=== PATIENT | female | born 1940 | race Caucasian/White ===

== ENCOUNTER 2017-03-13 22:27 | Inpatient (IN) | payer MEDICARE, OTHER ==
[~2017-03-13] VITALS: Ht 157.5 cm; Wt 67.8 kg
[2017-03-13] MEDS: ADVAIR DISKUS 500/50 INH PWD INH SCH (02:13)
[~2017-03-13 22:27] MED LIST: ADV500INH INH; ALBU17IN INH; ALBU83IN INH; AMLO10TA2 PO; AVEL1TAB PO; DOCU10CA PO; DOXY100C PO; Docusate Sod/Senna PO; HYDR12CA PO; IPRAINH INH; LEVO75TA4 PO; LOSA100T36 PO; METF1000 PO; METF500T PO; MOM30SS PO; NICO21PAT TD; NORV5TAB PO; PERC5TAB6 PO; PRED10PA PO; PROT1TAB2 PO; ROBISYP PO; SENN8.6C PO; SIMV80TA PO; SPIR1CAP INH; TYLE325T5 PO; VITA100066 PO; ZETI10TA2 PO; [UNRECOGNIZED DRUG - CODE] PO
[2017-03-13] MEDS ORDERED: ALBUTEROL SULFATE 2.5 MG/0.5 ML INH NEB SOLN INH ONE (22:45)
[2017-03-13] MEDS ORDERED: IPRATROPIUM 0.5MG/ALBUTEROL 2.5MG INH SOL UD 3ML (DUONEB)(J7620) NEB ONE (22:45)
[2017-03-13] MEDS ORDERED: THEO1CAP5 PO (22:46)
[2017-03-13] MEDS ORDERED: GLIP-162 PO (22:46)
[2017-03-13 22:57] LABS: BASO # 0.1 K/mm3 (0.0-0.2); BASO % 0.8 % (0.0-1.0); EOS # 0.3 K/mm3 (0.0-0.50); EOS % 2.1 % (0.0-3.0); LARGE UNSTAINED CELL # 0.3 K/mm3 (0.0-0.4); LARGE UNSTAINED CELL % 1.9 % (0.0-4.0); LYMPH # 3.3 K/mm3 (1.5-4.5); LYMPH % 22.6 % (24.0-44.0); MEAN CORPUSCULAR HEMOGLOBIN 25.8 pg (27.0-33.0); MEAN CORPUSCULAR HGB CONC 32.5 g/dl (32.0-36.5); MEAN CORPUSCULAR VOLUME 79.4 fl (80.0-96.0); MONO # 0.9 K/mm3 (0.0-0.8); NEUTROPHILS # 9.7 K/mm3 (1.8-7.7); NEUTROPHILS % 66.7 % (36.0-66.0); PLATELET COUNT, AUTOMATED 400 k/mm3 (150-450); RED CELL DISTRIBUTION WIDTH 13.5 % (11.5-14.5); WHITE BLOOD COUNT 14.5 K/mm3 (4.0-10.0)
[2017-03-13 23:01] LABS: INR 0.92
[2017-03-13 23:08] LABS: ABG BASE EXCESS 1.6 (-2.0-2.0); ABG HCO3 25.9 MEQ/L (22.0-26.0); ABG PARTIAL PRESSURE CO2 39.5 mmHg (35.0-45.0); ABG PARTIAL PRESSURE O2 60.9 mmHg (75.0-100.0); ABG STANDARD HCO3 25.8 MEQ/L (22.0-26.0); ABG TOTAL CO2 27.1 MEQ/L (23.0-31.0); ABG pH (ARTERIAL) 7.434 UNITS (7.350-7.450)
[2017-03-13 23:23] LABS: ANION GAP 6 MEQ/L (8-16); BLOOD UREA NITROGEN 12 MG/DL (7-18); CALCIUM LEVEL 9.5 MG/DL (8.8-10.2); CARBON DIOXIDE LEVEL 29 MEQ/L (21-32); CHLORIDE LEVEL 99 MEQ/L (98-107); CREATININE FOR GFR 0.75 MG/DL (0.55-1.02); GLOMERULAR FILTRATION RATE > 60.0 (>39); GLUCOSE, FASTING 122 MG/DL (83-110); POTASSIUM SERUM 4.2 MEQ/L (3.5-5.1); SODIUM LEVEL 134 MEQ/L (136-145)
[2017-03-13 23:30] LABS: ALBUMIN 3.6 GM/DL (3.2-5.2); ALBUMIN/GLOBULIN RATIO 0.92 (1.00-1.93); ALKALINE PHOSPHATASE 58 U/L (45-117); ALT/SGPT 15 U/L (12-78); AST/SGOT 10 U/L (15-37); BILIRUBIN,DIRECT < 0.1 MG/DL (0.0-0.2); BILIRUBIN,TOTAL 0.3 MG/DL (0.2-1.0); THYROXINE (T4) 13.3 UG/DL (4.5-12.0); TOTAL PROTEIN 7.5 GM/DL (6.4-8.2)
[2017-03-14] MEDS ORDERED: GLUCAGON FOR INJ 1 MG VIAL (J1610) SC PRN (01:00)
[2017-03-14] MEDS ORDERED: DEXTROSE 50% 50 ML SYRINGE IV PRN (01:00)
[2017-03-14] MEDS ORDERED: ONDANSETRON 4MG/2ML VIAL (J2405) IV PRN (01:00)
[2017-03-14] MEDS ORDERED: GLUCOSE 4 GM CHEW TABLET PO PRN (01:00)
[2017-03-14] MEDS ORDERED: MIRALAX *UNIT DOSE* 17GM PACKET PO PRN (01:15)
[2017-03-14] MEDS ORDERED: NICOTINE 14 MG/24 HR TRANSDERMAL TD PRN (01:15)
[2017-03-14] MEDS ORDERED: MIRALAX *UNIT DOSE* 17GM PACKET PO ONE (01:30)
[2017-03-14] MEDS ORDERED: HYDR12.55 PO (01:43)
[2017-03-14] MEDS ORDERED: METF500T PO (01:43)
[2017-03-14 01:56] VITALS: BP 129/58
[2017-03-14] MEDS: IPRATROPIUM 0.5MG/ALBUTEROL 2.5MG INH SOL UD 3ML (DUONEB)(J7620) NEB SCH ×4 (02:00→19:55)
[2017-03-14] MEDS: SENOKOT S TAB PO SCH ×3 (02:15→21:00)
[2017-03-14] MEDS: SENNA 8.6 MG TAB (SENOKOT) PO SCH ×3 (02:15→21:00)
[2017-03-14] MEDS: methylPREDNISolone INJ 125 MG/2 ML VIAL (J2930) IV SCH ×3 (02:17→17:32)
[2017-03-14] MEDS: ACETAMINOPHEN TAB 650MG DOSE (2X325MG) PO PRN ×2 (02:18→14:21)
--- NOTE | 2017-03-14 03:42 | HPE ---
DATE OF ADMISSION: 03/14/2017 PRIMARY CARE PROVIDER: Dr. Bud Gonzalez at [facility]. CHIEF COMPLAINT: Shortness of breath. HISTORY OF PRESENT ILLNESS: Ms. Cai is a 76-year-old female with past medical history of chronic obstructive pulmonary disease (COPD), oxygen dependent at night, who [facility] with complaint of shortness of breath worsened in the last 3-4 days. At baseline, she has shortness of breath and uses 2 liters nasal cannula; however, noticed that her shortness of breath worsened 3 days ago while cooking her meal. This is a significant change compared to her baseline. Endorses a yellow productive cough , subjective fevers, chills. Denies chest pain, palpitations, paroxysmal nocturnal dyspnea, pillow orthopnea. Patient continues to sleep on the same angle of the bed at night, mostly lies on her left side. Has not increased the amount of oxygen that she uses in the last few days. However, in the last few months because of the weather change, she has been needing to use her nebulizer treatment more frequently, though no relief of symptom. Because of persistent symptom, she decided to come in today for further evaluation. Denies sick contact at home. She was prescribed azithromycin a few days ago by her primary care provider (PCP), but no relief of symptom. Reported improvement after she was given nebulizer treatment in the ED. PAST MEDICAL HISTORY: 1. COPD, emphysema with 2 liters nasal cannula. 2. Chronic hypoxic respiratory failure. 3. Type 2 diabetes. 4. Hypertension. 5. Hyperlipidemia. 6. Internal hemorrhoids. 7. Hypothyroidism. 8. Right apical solitary nodule, spiculated, being followed by wood cutter. 9. Left upper lobe ground opacity. 10. Umbilical hernia, reportedly was seen by surgeon and was told that no one would touch it because of her underlying pulmonary disease. 11. Diverticulosis. 12. Hiatal hernia. PAST SURGICAL HISTORY: 1. Right thumb trigger finger release. 2. Tonsillectomy. 3. Thyroidectomy. 4. Bilateral cataract surgery. 5. Esophagogastroduodenoscopy (EGD) 2013 shows small hiatal hernia. 6. Colonoscopy 2013 shows non-bleeding internal hemorrhoids, diverticulosis. Pathology positive for adenomatous polyp. HOME MEDICATIONS: - Spiriva one dose inhaled daily - theophylline 400 mg by mouth daily - Zocor 80 mg nightly - Advair one puff inhaled twice a day - metformin 500 mg three times a day - losartan 100 mg by mouth daily - Synthroid 75 mcg by mouth daily - hydrochlorothiazide 12.5 mg by mouth daily - glipizide 5 mg by mouth daily - Zebeta 10 mg by mouth daily - vitamin D 1000 mg by mouth daily - albuterol two puffs every 4 hours as needed ALLERGIES: Denies allergy to penicillin, but reports allergic reaction to SULFA , KEFLEX, AUGMENTIN, SOMA, and CODEINE and reported projectile vomit with these medications. FAMILY HISTORY: Father from bladder cancer at 75. Mother at 55 due to heart attack. There is a history of various cancers in multiple of her siblings. Unknown what type. SOCIAL HISTORY: Patient is a current smoker, has been smoking for 54 years. Used to smoke two packs a day, now down to a pack and a half. No alcohol. No drug use. She has traveled to [facility], [place]. 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 No exposure to tuberculosis, asbestos. Has three cats at home. REVIEW OF SYSTEMS: CONSTITUTIONAL: Positive for subjective fevers, chills. Denies weight loss, rigors, or night sweats. HEENT: Denies headaches, lightheadedness, dizziness, blurry vision, difficulty with speech and swallow. CARDIOVASCULAR: As above. PULMONARY: As above. GASTROINTESTINAL: Has a ventral hernia and was told that no surgeon will operate due to her severe underlying lung problem. Reports abdominal pain secondary to her constipation. Denies hematochezia, melena, or hematemesis, nausea, vomiting, diarrhea. GENITOURINARY: No dysuria, frequency or hematuria. MUSCULOSKELETAL: No bone, muscle, joint pain. NEUROLOGICAL: No paralysis, paresthesia, headaches. ENDOCRINE: Positive for diabetes and thyroid disease. LYMPHATICS: No lumps, bumps, or swelling anywhere in neck, axilla, or groin. HEMATOLOGY: No abnormal bleeding or bruising. PSYCHIATRIC: Denies anxiety or depression. PHYSICAL EXAMINATION: VITAL SIGNS: Blood pressure 163/70, heart rate 96, temperature 98.6, respiration rate 22, pulse oximetry 94% on 2 liters nasal cannula. GENERAL: Patient is sitting in bed, comfortable, no acute respiratory distress. She is able to answer questions in full complete sentences. at bedside. Appears stated age. HEENT: Normocephalic, atraumatic. Moist oral mucosa. Edentulous. No thrush or lesions appreciated. EYES: Extraocular movement intact. Pupils equal and reactive to light. NECK: Supple. Trachea midline. No jugular venous distention (JVD). CHEST: Symmetric chest rise. No accessory muscle use. Breath sounds were tight throughout all lung cervantes with expiratory wheezing. No rales or rhonchi appreciated. HEART: Mildly tachycardic, but regular sounding. Did not appreciate any murmurs, rubs or gallops. ABDOMEN: Soft, but diffusely tender to palpation. The patient reports cramping from when she is constipated. Does have umbilical hernia that is reducible. EXTREMITIES: No pedal edema. Pedal pulses present bilaterally. NEUROLOGIC: Cranial nerves II-XII grossly intact. No focal deficits appreciated. SKIN: No obvious rash or lesions. PSYCHIATRIC: Pleasant, cooperative. LABORATORY DATA: WBC 14.5, hemoglobin 14.3, hematocrit 44.1, platelets 400. Sodium 134, potassium 4.2, chloride 99, carbon dioxide 29, BUN 12, creatinine 0.75, glucose 122. Lactic acid 1.5, calcium 9.5. AST 10, the rest of the liver profile normal. First set of cardiac enzymes negative. CRP 0.66. BNP 16.6. TSH 3. Coagulation panel normal. ABG pH 7.43, pCO2 39.9, oxygen 60.9. Chest x-ray is normal heart size, cardiac border and costophrenic angles sharp. No acute infiltrate or effusion appreciated. IMPRESSION AND PLAN: Ms. Cai is a 76-year-old female with past medical history of chronic obstructive pulmonary disease (COPD), oxygen dependent, chronic hypoxic respiratory failure, who presented with worsening shortness of breath. 1. Shortness of breath. Based on her history, suspect this is likely secondary to COPD exacerbation. The patient reported relief of symptom after given albuterol treatment in the emergency department (ED). Patient will be admitted for close monitoring. Will trend cardiac markers. Check EKG. Start Solu- Medrol intravenously (IV) every 8 hours with nebulizer treatment and Levaquin. Continue oxygen saturation with a goal of 88-92 due to her history of COPD. 2. Leukocytosis. Likely secondary to stress reaction versus infection. Repeat labs in the morning; however, suspect that this will likely increase due to on steroids. She is on Levaquin as mentioned. Will check sputum culture and respiratory panel. 3. Abdominal pain. Etiology unclear, though the patient herself reports feeling constipated. Have checked a KUB. She does have a reducible ventral hernia on physical exam as well and per patient she was evaluated by surgeon in the past and was deemed not appropriate for surgery by surgeons due to her advanced pulmonary disease. Her abdominal pain was not elicited from her ventral hernia tonight. We have added a stool softener. 4. Diabetes. Will hold home hypoglycemic agents and start insulin sliding scale. 5. Hypertension. Continue home dose Cozaar and hydrochlorothiazide. 6. Hyperlipidemia. Continue Lipitor 80 nightly. 7. Hypothyroidism. Continue levothyroxine. 8. Pulmonary nodule. Patient reportedly follows with a wood cutter for this. 9. Tobacco abuse. Unfortunately, despite her advanced pulmonary disease, she continues to smoke. We have added as needed nicotine patch. 10. Deep venous thrombosis (DVT) prophylaxis. Sequential compression devices (SCDs), thromboembolism deterrent stockings (TEDS) and heparin. DISPOSITION: Due to the patient's condition, we expect her stay to be greater than two midnights. My preceptor for this patient encounter was Dr. Pascale Beltran. The preceptor was physically present in the building during the encounter and was fully available as needed. All aspects of the patient interview, examination, medical decision making process, and medical care plan development were reviewed and approved by the preceptor. The preceptor is aware and concurs with the plan as stated in the body of this note and will attest to such by his/her co-signature. cc: Dr. Bud Gonzalez I have both independently examined this patient as well as reviewed the H&P. I have discussed in detail with the resident the findings and plan of treatment as documented in the residents note. I will continue to follow the patient and offer further guidance to the patients care as necessary during this hospital stay. Pascale OWENS
[2017-03-14] MEDS: LevoFLOXacin 500 MG TABLET PO SCH (05:33)
[2017-03-14] MEDS: HEPARIN SOD (PORCINE) 5000 UNITS/ML VIAL SC SCH ×3 (05:33→21:07)
[2017-03-14 05:50] VITALS: BP 143/65
[2017-03-14] MEDS ORDERED: LEVOTHYROXINE 0.075 MG TAB (75 MCG) PO SCH (06:00)
[2017-03-14] MEDS: HumaLOG INSULIN (NovoLOG) PER UNIT SC SCH ×4 (07:59→20:47)
[2017-03-14] MEDS: EZETIMIBE 10 MG TAB (ZETIA) PO SCH (08:00)
[2017-03-14] MEDS: VITAMIN D 1,000 INTERNATIONAL UNITS TABLET PO SCH (08:00)
[2017-03-14] MEDS: hydroCHLOROthiazide 12.5 MG CAPSULE PO SCH (08:00)
[2017-03-14] MEDS: THEOPHYLLINE (THEO-24) 100MG SR **CAPSULE PO SCH (08:00)
[2017-03-14] MEDS: LOSARTAN 50 MG TAB PO SCH (08:00)
[2017-03-14] MEDS: TIOTROPIUM INHALER/CAPSULE (SPIRIVA) INH SCH (08:13)
[2017-03-14] MEDS: ADVAIR DISKUS 500/50 INH PWD INH SCH ×2 (08:14→19:54)
--- NOTE | 2017-03-14 09:17 | REP ---
REASON: Cough and dyspnea. COMPARISON: 08/05/2016 The technique utilized in obtaining the radiograph has magnified the cardiac silhouette and accentuated the interstitial markings. There has been no significant change. There is fibrotic change throughout without evidence of a patchy opacity or pleural effusion. There is no change in the osseous structures. IMPRESSION: No change. Signed by Foster Jean DO 03/14/2017 09:26 A
--- NOTE | 2017-03-14 09:24 | ECGEPIP ---
Stationary ECG Study [facility] - ED Test Date: 2017-03-13 Pat Name: HERB MAYA Department: Room: [place] [address] Gender: F Under Trimmer: MalcolmB: 1940 Requested By: Sean Vasquez Order Number: [id number] Reading MD: Sheeba Dickens Measurements Intervals [place] Rate: 105 P: 86 WV: 142 QRS: 69 QRSD: 93 T: 101 QT: 321 QTc: 425 Interpretive Statements SINUS TACHYCARDIA NONSPECIFIC ST & T-WAVE ABNORMALITY ABNORMAL RHYTHM ECG SIMILAR 07/31/16 Electronically Signed On 03-14-2017 9:24:26 EDT by Sheeba Dickens
--- NOTE | 2017-03-14 09:29 | REP ---
ABDOMINAL PAIN: COMPARISON: None. FINDINGS: KUB shows the intestinal gas pattern to be nonspecific. The organ silhouettes insofar as delineated are unremarkable. There is no evidence of free intraperitoneal air. IMPRESSION: Nonspecific. Signed by Foster Jean DO 03/14/2017 09:40 A
[2017-03-14] MEDS: IPRATROPIUM 0.5MG/ALBUTEROL 2.5MG INH SOL UD 3ML (DUONEB)(J7620) NEB PRN ×2 (10:12→23:59)
--- NOTE | 2017-03-14 13:57 | IPN ---
DATE OF SERVICE: 03/14/2017 SUBJECTIVE: The patient is seen and examined in the room today. The patient stated the patient's breathing is stable since admission. The patient has been having a similar infection where her had before. The patient still complaining about several days of constipation. No overnight events were reported. OBJECTIVE: Vital signs: Temperature is 97.4, pulse of 107, respiration 18, blood pressure is 143/65, pulse oximetry is 94% with 2 liters nasal cannula. General: Mild distress secondary to tachypnea. The patient is alert and oriented times three. Some difficulty with hearing. HEENT: Normocephalic, atraumatic. Extraocular motor grossly intact. Cardiovascular: Positive S1, S2, regular rate. Lungs: Some expiratory wheezes throughout. I cannot appreciate significant crackles. Abdomen: Soft, nontender, nondistended. Bowel sounds present. No rebound and no guarding. Extremities: No edema. No sign of cyanosis. There is a site of intravenous (IV) infiltration near the right elbow. LABORATORY DATA: WBC is 14.5, hemoglobin 14.3, hematocrit 44.1, platelet count is 400. Sodium is 134, potassium 4.2, chloride 99, carbon dioxide 29, BUN 12, creatinine 0.75, GFR greater than 60, fasting glucose 122, calcium 9.5, troponin I is less than 0.02, C-reactive protein is 0.66. Respiratory panel shows human rhinovirus/enterovirus. Sputum culture is pending. Blood culture is pending times two sets. ASSESSMENT AND PLAN: 1. Chronic obstructive pulmonary disease (COPD) exacerbation secondary to a viral lung infection. Continue conservative management. The patient will have a breathing treatment as needed. The patient is on Levaquin. The patient is also on intravenous (IV) Solu-Medrol. 2. Viral lung infection, including human rhinovirus/enterovirus. Continue conservative management. 3. Type 2 diabetes. On sliding scale and consistent-carbohydrate diet. 4. Hypertension. Currently, the patient's blood pressure in the satisfactory range. The patient is on losartan. 5. Hyperlipidemia. The patient is on Zetia and simvastatin. 6. Constipation. The patient will have MiraLAX. 7. Tobacco abuse. Nicotine patch. 8. Internal hemorrhoids. 9. Hypothyroidism. Will follow with a free T4. 10. Right apical solitary nodule, spiculated. Followed by recordist. 11. Umbilical hernia. 12. History of diverticulosis. 13. Deep venous thrombosis (DVT) prophylaxis. On heparin. MTDD
[2017-03-14 14:00] VITALS: BP 154/66
[2017-03-14] MEDS: MIRALAX *UNIT DOSE* 17GM PACKET PO SCH (14:21)
[2017-03-14] MEDS: PERCOCET 5MG/325MG TAB PO PRN (18:43)
[2017-03-14] MEDS: SIMVASTATIN 40 MG TAB PO SCH (21:08)
[2017-03-14 22:00] VITALS: BP 141/63
[2017-03-15] MEDS: methylPREDNISolone INJ 125 MG/2 ML VIAL (J2930) IV SCH ×3 (02:25→17:46)
[2017-03-15] MEDS: IPRATROPIUM 0.5MG/ALBUTEROL 2.5MG INH SOL UD 3ML (DUONEB)(J7620) NEB SCH ×2 (03:38→07:42)
[2017-03-15 06:00] VITALS: BP 135/61
[2017-03-15] MEDS: HEPARIN SOD (PORCINE) 5000 UNITS/ML VIAL SC SCH ×3 (06:08→21:24)
[2017-03-15] MEDS: LevoFLOXacin 500 MG TABLET PO SCH (06:08)
[2017-03-15 07:06] LABS: MEAN CORPUSCULAR HEMOGLOBIN 26.7 pg (27.0-33.0); MEAN CORPUSCULAR HGB CONC 34.1 g/dl (32.0-36.5); MEAN CORPUSCULAR VOLUME 78.2 fl (80.0-96.0); RED CELL DISTRIBUTION WIDTH 13.2 % (11.5-14.5); WHITE BLOOD COUNT 15.7 K/mm3 (4.0-10.0)
[2017-03-15 07:29] LABS: CALCIUM LEVEL 9.2 MG/DL (8.8-10.2); CREATININE FOR GFR 1.27 MG/DL (0.55-1.02); FREE T4 1.58 NG/DL (0.76-1.46); GLOMERULAR FILTRATION RATE 43.8 (>39); MAGNESIUM LEVEL 2.2 MG/DL (1.8-2.4); POTASSIUM SERUM 4.5 MEQ/L (3.5-5.1)
[2017-03-15] MEDS: TIOTROPIUM INHALER/CAPSULE (SPIRIVA) INH SCH (07:42)
[2017-03-15] MEDS: ADVAIR DISKUS 500/50 INH PWD INH SCH ×2 (07:42→20:01)
[2017-03-15] MEDS: SENOKOT S TAB PO SCH ×2 (08:01→20:35)
[2017-03-15] MEDS: SENNA 8.6 MG TAB (SENOKOT) PO SCH ×2 (08:01→20:35)
[2017-03-15] MEDS: MIRALAX *UNIT DOSE* 17GM PACKET PO SCH (08:01)
[2017-03-15] MEDS: LOSARTAN 50 MG TAB PO SCH (08:12)
[2017-03-15] MEDS: EZETIMIBE 10 MG TAB (ZETIA) PO SCH (08:12)
[2017-03-15] MEDS: THEOPHYLLINE (THEO-24) 100MG SR **CAPSULE PO SCH (08:12)
[2017-03-15] MEDS: hydroCHLOROthiazide 12.5 MG CAPSULE PO SCH (08:12)
[2017-03-15] MEDS: VITAMIN D 1,000 INTERNATIONAL UNITS TABLET PO SCH (08:12)
[2017-03-15] MEDS: HumaLOG INSULIN (NovoLOG) PER UNIT SC SCH ×4 (08:13→20:35)
[2017-03-15] MEDS ORDERED: MIRALAX *UNIT DOSE* 17GM PACKET PO SCH (09:00)
[2017-03-15] MEDS ORDERED: FIORICET TAB PO PRN (10:00)
[2017-03-15] MEDS: ALBUTEROL SULFATE 2.5 MG/0.5 ML INH NEB SOLN NEB PRN (11:10)
--- NOTE | 2017-03-15 13:48 | IPN ---
DATE: 03/15/2017 The patient was seen and examined in the room today. The patient stated that she is not feeling well. She started having headache and still has significant wheezes. The patient has been receiving DuoNeb; however, she feels that she cannot tolerate DuoNeb. She requests albuterol nebulizer instead. No overnight events reported. OBJECTIVE: VITAL SIGNS: Temperature 97.9, pulse is 74, respirations 20, blood pressure 135/61, pulse oximetry 96% with 2 liters nasal cannula. GENERAL : Mild fatigue. Mild signs of distress secondary to respiratory distress. Alert and oriented times three. HEENT: Normocephalic, atraumatic. Extraocular motors grossly intact. CARDIOVASCULAR: Positive S1, S2. Regular rate. LUNGS: Significant expiratory wheezes throughout. The patient just had a breathing treatment two hours ago. No crackles. ABDOMEN: Soft, nontender, nondistended. Bowel sounds present. No rebound or guarding. EXTREMITIES: No edema. No sign of cyanosis. LABORATORY DATA: WBC 15.7, hemoglobin 12, hematocrit is 35.1, platelet count is 385. Sodium is 127, potassium 4.5, chloride 90, carbon dioxide 26, BUN 27, creatinine is 1.27, calcium is 9.2, magnesium 2.2, C-reactive protein is 0.68, Free T4 is 1.58. ASSESSMENT AND PLAN: 1. Chronic obstructive pulmonary disease (COPD) exacerbation secondary to viral lung infection. The patient continues to have significant wheezes. The patient will use albuterol nebulizer as needed. The patient is on Levaquin. The patient is also on steroids. 2. Human rhinovirus/enterovirus. The patient continues to have poor oral intake. We will start gentle hydration. 3. Type 2 diabetes. On sliding scale and consistent carbohydrate diet. 4. Hypertension. On losartan. 5. Acute kidney injury, possibly due to decreased oral intake from acute viral illnesses. We will start the patient on fluid support. We will check renal function tomorrow. 6. Hyperlipidemia. On Zetia and simvastatin. 7. Constipation. On MiraLAX. 8. Tobacco abuse. On nicotine patch. 9. Hypertension. On losartan. 10. Hypothyroidism. The patient had elevated free T4. The patient's Synthroid dose will be reduced at this moment. 11. Right solitary nodule, spiculated. Followed by wildlife biologist. 12. Left upper lobe ground glass opacity. On Levaquin. 13. Umbilical hernia. 14. History of diverticulosis. 15. Deep vein thrombosis (DVT) prophylaxis. On heparin.
[2017-03-15] MEDS: NS 1,000 ML IV SCH (13:51)
[2017-03-15 14:00] VITALS: BP 140/56
[2017-03-15] MEDS: ALBUTEROL SULFATE 2.5 MG/0.5 ML INH NEB SOLN NEB SCH ×2 (15:47→20:00)
[2017-03-15] MEDS: NICOTINE 21MG/24HR 1 EA TRANSDERMAL TD SCH (16:27)
[2017-03-15] MEDS ORDERED: SODIUM CHLORIDE NASAL 0.65% SPRAY BTL (OCEAN) PRN (17:15)
[2017-03-15 20:03] VITALS: O2SAT 97
[2017-03-15] MEDS: MAALOX 30 ML SUSP *UDC PO PRN (20:33)
[2017-03-15] MEDS: PERCOCET 5MG/325MG TAB PO PRN (20:34)
[2017-03-15] MEDS: SIMVASTATIN 40 MG TAB PO SCH (20:35)
[2017-03-15 22:00] VITALS: BP 143/65
[2017-03-16] MEDS: ALBUTEROL SULFATE 2.5 MG/0.5 ML INH NEB SOLN NEB SCH ×4 (01:43→19:53)
[2017-03-16] MEDS: methylPREDNISolone INJ 125 MG/2 ML VIAL (J2930) IV SCH ×3 (02:28→21:50)
[2017-03-16] MEDS: NS 1,000 ML IV SCH ×2 (05:54→17:12)
[2017-03-16] MEDS: HEPARIN SOD (PORCINE) 5000 UNITS/ML VIAL SC SCH ×3 (05:54→21:50)
[2017-03-16] MEDS: LEVOTHYROXINE SODIUM 0.0625 MG 1/2 TAB (62.5MCG) PO SCH (05:54)
[2017-03-16] MEDS: LevoFLOXacin 500 MG TABLET PO SCH (05:54)
[2017-03-16 06:00] VITALS: BP 139/63
[2017-03-16 06:53] LABS: MEAN CORPUSCULAR VOLUME 78.7 fl (80.0-96.0); RED CELL DISTRIBUTION WIDTH 13.1 % (11.5-14.5); WHITE BLOOD COUNT 17.1 K/mm3 (4.0-10.0)
[2017-03-16 07:14] LABS: CALCIUM LEVEL 8.5 MG/DL (8.8-10.2); CREATININE FOR GFR 1.11 MG/DL (0.55-1.02); GLOMERULAR FILTRATION RATE 51.2 (>39); MAGNESIUM LEVEL 2.5 MG/DL (1.8-2.4); POTASSIUM SERUM 4.3 MEQ/L (3.5-5.1)
[2017-03-16] MEDS: ADVAIR DISKUS 500/50 INH PWD INH SCH ×2 (07:28→19:51)
[2017-03-16] MEDS: TIOTROPIUM INHALER/CAPSULE (SPIRIVA) INH SCH (07:28)
[2017-03-16] MEDS: VITAMIN D 1,000 INTERNATIONAL UNITS TABLET PO SCH (08:34)
[2017-03-16] MEDS: HumaLOG INSULIN (NovoLOG) PER UNIT SC SCH ×4 (08:34→21:51)
[2017-03-16] MEDS: SENOKOT S TAB PO SCH ×2 (08:34→21:50)
[2017-03-16] MEDS: EZETIMIBE 10 MG TAB (ZETIA) PO SCH (08:34)
[2017-03-16] MEDS: SENNA 8.6 MG TAB (SENOKOT) PO SCH ×2 (08:34→21:50)
[2017-03-16] MEDS: MIRALAX *UNIT DOSE* 17GM PACKET PO SCH (08:35)
[2017-03-16] MEDS: NICOTINE 21MG/24HR 1 EA TRANSDERMAL TD SCH (08:35)
[2017-03-16] MEDS: THEOPHYLLINE (THEO-24) 100MG SR **CAPSULE PO SCH (08:35)
[2017-03-16] MEDS: LOSARTAN 50 MG TAB PO SCH (08:38)
[2017-03-16] MEDS ORDERED: INFLUENZA VIRUS VACCINE HIGH DOSE 0.5 ML SYRINGE (90662) IM ONE (09:00)
[2017-03-16] MEDS: LEVEMIR (INSULIN DETEMIR) 1 UNITS/0.01ML SC SCH (09:58)
[2017-03-16] MEDS: ALBUTEROL SULFATE 2.5 MG/0.5 ML INH NEB SOLN NEB PRN (11:06)
[2017-03-16 14:00] VITALS: BP 126/58
[2017-03-16] MEDS: MAALOX 30 ML SUSP *UDC PO PRN (14:52)
--- NOTE | 2017-03-16 15:14 | IPNPDOC ---
Text Note Date of Service The patient was seen on 03/16/17. NOTE Subjective: Pt is still wheezing. Has LEIGH. No CP/palpitations. Slightly improved. Objective: Vitals: (see below) General: No acute distress, laying comfortably in bed. HEENT: Moist mucous membranes. Neck: No JVD or lymphadenopathy Cardiac: RRR, No murmurs Pulm: Exp wheezing b/l. No wheezing, rhonchi Abd: NT/ND + BS. Reducible hernia. Ext: No edema or cyanosis Labs (see below) Images: Abd xray 03/14/17 - IMPRESSION: Nonspecific. CXR 03/13/17 - The technique utilized in obtaining the radiograph has magnified the cardiac silhouette and accentuated the interstitial markings. There has been no significant change. There is fibrotic change throughout without evidence of a patchy opacity or pleural effusion. There is no change in the osseous structures. IMPRESSION: No change. Assessment/Plan 1. Acute COPD exacerbation 2/2 viral illness. Decrease steroid dose, cont nebs. Cont Levaquin. Has baseline severe COPD on home O2. 2. Type 2 Diabetes Mellitus - SSI. Start on Levemir as BS elevated. Steroid dose decreased. 3. RAJI - resolved. On IVF. 4. HLD - cont home meds 5. Hyponatremia/dehydration - 2/2 viral illness and HCTZ. HCTZ d/c. On IVF. cont to monitor Repeat BMP. 6. HTN - cont losartan 7. Hypothyroidism -cont synthroid dose, which was decreased. 8. Spiculated right nodule - followed by pulmonary 9. ANTONELLA opacity on levaquin. 10 Hernia- reducible. Seen by surgery in [place] and told they won't operate on her due to her poor lung function. DVT prophy: Heparin SQ VS,Fishbone, I+O VS, Fishbone, I+O Laboratory Tests 03/16/17 06:40 Calcium Level 8.5 L, Red Blood Count 4.55, Mean Corpuscular Volume 78.7 L, Mean Corpuscular Hemoglobin 26.0 L, Mean Corpuscular Hemoglobin Concent 33.0, Red Cell Distribution Width 13.1 Vital Signs Date Time Temp Pulse Resp B/P Pulse Ox O2 Delivery O2 Flow Rate FiO2 03/16/17 14:00 98.8 103 19 126/58 95 Nasal Cannula 2.0 I&O- Last 24 Hours up to 6 AM 03/16/17 05:59 Intake Total 1760 ml Output Total 2000 ml Balance -240 ml NEEMA ELLSWORTH MD Mar 16, 2017 15:14
[2017-03-16 15:19] LABS: CALCIUM LEVEL 8.2 MG/DL (8.8-10.2); CREATININE FOR GFR 1.22 MG/DL (0.55-1.02); GLOMERULAR FILTRATION RATE 45.9 (>39); POTASSIUM SERUM 4.4 MEQ/L (3.5-5.1)
[2017-03-16] MEDS: PERCOCET 5MG/325MG TAB PO PRN (17:14)
[2017-03-16] MEDS: guaiFENesin ER 600 MG TAB PO SCH (21:50)
[2017-03-16] MEDS: SIMVASTATIN 40 MG TAB PO SCH (21:50)
[2017-03-16 22:00] VITALS: BP 146/66
[2017-03-17] MEDS: ALBUTEROL SULFATE 2.5 MG/0.5 ML INH NEB SOLN NEB SCH ×4 (01:23→18:53)
[2017-03-17] MEDS: NS 1,000 ML IV SCH (02:43)
[2017-03-17] MEDS: LEVOTHYROXINE SODIUM 0.0625 MG 1/2 TAB (62.5MCG) PO SCH (05:34)
[2017-03-17] MEDS: LevoFLOXacin 500 MG TABLET PO SCH (05:34)
[2017-03-17] MEDS: HEPARIN SOD (PORCINE) 5000 UNITS/ML VIAL SC SCH ×3 (05:35→21:32)
[2017-03-17 06:00] VITALS: BP 149/68
[2017-03-17 06:55] LABS: MEAN CORPUSCULAR HEMOGLOBIN 26.9 pg (27.0-33.0); MEAN CORPUSCULAR HGB CONC 34.2 g/dl (32.0-36.5); MEAN CORPUSCULAR VOLUME 78.6 fl (80.0-96.0); RED CELL DISTRIBUTION WIDTH 13.4 % (11.5-14.5); WHITE BLOOD COUNT 13.4 K/mm3 (4.0-10.0)
[2017-03-17 07:12] LABS: CALCIUM LEVEL 8.3 MG/DL (8.8-10.2); CREATININE FOR GFR 0.97 MG/DL (0.55-1.02); GLOMERULAR FILTRATION RATE 59.8 (>39); MAGNESIUM LEVEL 2.3 MG/DL (1.8-2.4); POTASSIUM SERUM 4.4 MEQ/L (3.5-5.1)
[2017-03-17] MEDS: TIOTROPIUM INHALER/CAPSULE (SPIRIVA) INH SCH (07:14)
[2017-03-17] MEDS: ADVAIR DISKUS 500/50 INH PWD INH SCH ×2 (07:14→22:02)
--- NOTE | 2017-03-17 08:10 | REP ---
Urinary tract sonography: History: Posterior flank pain. Findings: Scanning at the level of the urinary bladder shows smooth bladder syed and no extravesical lesion. Renal cortical echogenicity pattern is normal and renal contours are smooth bilaterally. There is no evidence of hydronephrosis on either side. No cyst, mass, or calculus is seen. Right renal dimensions are 11.8 x 4.5 x 5.2 cm. The left kidney measures 11.8 x 4.6 x 5.4 cm. Impression: Normal urinary tract sonography. Signed by Guerrero Guerrero MD 03/17/2017 01:37 P
[2017-03-17] MEDS: HumaLOG INSULIN (NovoLOG) PER UNIT SC SCH ×4 (08:16→21:32)
[2017-03-17] MEDS: LEVEMIR (INSULIN DETEMIR) 1 UNITS/0.01ML SC SCH (08:17)
[2017-03-17] MEDS: MIRALAX *UNIT DOSE* 17GM PACKET PO SCH (08:17)
[2017-03-17] MEDS: NICOTINE 21MG/24HR 1 EA TRANSDERMAL TD SCH (08:17)
[2017-03-17] MEDS: THEOPHYLLINE (THEO-24) 100MG SR **CAPSULE PO SCH (08:17)
[2017-03-17] MEDS: SENOKOT S TAB PO SCH ×2 (08:18→21:31)
[2017-03-17] MEDS: guaiFENesin ER 600 MG TAB PO SCH ×2 (08:18→21:30)
[2017-03-17] MEDS: SENNA 8.6 MG TAB (SENOKOT) PO SCH ×2 (08:18→21:30)
[2017-03-17] MEDS: EZETIMIBE 10 MG TAB (ZETIA) PO SCH (08:18)
[2017-03-17] MEDS: VITAMIN D 1,000 INTERNATIONAL UNITS TABLET PO SCH (08:18)
[2017-03-17] MEDS: LOSARTAN 50 MG TAB PO SCH (08:19)
[2017-03-17] MEDS: methylPREDNISolone INJ 125 MG/2 ML VIAL (J2930) IV SCH ×2 (10:26→21:31)
[2017-03-17] MEDS: PERCOCET 5MG/325MG TAB PO PRN ×2 (10:27→17:10)
--- NOTE | 2017-03-17 12:57 | IPNPDOC ---
Text Note Date of Service The patient was seen on 03/17/17. NOTE Subjective: Dyspnea is improving. No CP/palpitations. Objective: Vitals: (see below) General: No acute distress, laying comfortably in bed. HEENT: Moist mucous membranes. Neck: No JVD or lymphadenopathy Cardiac: RRR, No murmurs Pulm: Exp wheezing b/l; improved from yesterday. No rhonchi Abd: NT/ND + BS. Reducible hernia. Ext: No edema or cyanosis Labs (see below) Images: Abd xray 03/14/17 - IMPRESSION: Nonspecific. CXR 03/13/17 - The technique utilized in obtaining the radiograph has magnified the cardiac silhouette and accentuated the interstitial markings. There has been no significant change. There is fibrotic change throughout without evidence of a patchy opacity or pleural effusion. There is no change in the osseous structures. IMPRESSION: No change. Assessment/Plan 1. Acute COPD exacerbation 2/2 viral illness. Decrease steroid dose, cont nebs. Cont Levaquin. Has baseline severe COPD on home O2. 2. Type 2 Diabetes Mellitus - SSI. Start on Levemir as BS elevated. Steroid dose decreased. 3. RAJI - resolved. On IVF. 4. HLD - cont home meds 5. Hyponatremia/dehydration - Improved. 2/2 viral illness and HCTZ. HCTZ d/c. s/ p IVF. cont to monitor Repeat BMP. 6. HTN - cont losartan 7. Hypothyroidism -cont synthroid dose, which was decreased. 8. Spiculated right nodule - followed by pulmonary 9. ANTONELLA opacity on levaquin. 10 Hernia- reducible. Seen by surgery in [place] and told they won't operate on her due to her poor lung function. DVT prophy: Heparin SQ Plan to d/c in the next 24-48 hrs if continues to improve. VS,Fishbone, I+O VS, Fishbone, I+O Laboratory Tests 03/16/17 14:50 Calcium Level 8.2 L 03/17/17 06:42 Calcium Level 8.3 L, Red Blood Count 4.19, Mean Corpuscular Volume 78.6 L, Mean Corpuscular Hemoglobin 26.9 L, Mean Corpuscular Hemoglobin Concent 34.2, Red Cell Distribution Width 13.4 Vital Signs Date Time Temp Pulse Resp B/P Pulse Ox O2 Delivery O2 Flow Rate FiO2 03/17/17 11:00 20 03/17/17 08:19 149/68 03/17/17 06:00 98.7 76 97 Nasal Cannula 2.0 I&O- Last 24 Hours up to 6 AM 03/17/17 06:00 Intake Total 2440 ml Output Total 3050 ml Balance -610 ml NEEMA ELLSWORTH MD Mar 17, 2017 12:57
[2017-03-17 14:00] VITALS: BP 156/70
[2017-03-17] MEDS: SIMVASTATIN 40 MG TAB PO SCH (21:30)
[2017-03-17 22:00] VITALS: BP 160/76
[2017-03-18 06:00] VITALS: BP 159/72
[2017-03-18] MEDS: LEVOTHYROXINE SODIUM 0.0625 MG 1/2 TAB (62.5MCG) PO SCH (06:03)
[2017-03-18] MEDS: LevoFLOXacin 500 MG TABLET PO SCH (06:03)
[2017-03-18] MEDS: HEPARIN SOD (PORCINE) 5000 UNITS/ML VIAL SC SCH ×3 (06:03→20:58)
[2017-03-18 06:21] LABS: MEAN CORPUSCULAR HEMOGLOBIN 26.8 pg (27.0-33.0); MEAN CORPUSCULAR HGB CONC 33.8 g/dl (32.0-36.5); MEAN CORPUSCULAR VOLUME 79.4 fl (80.0-96.0); RED CELL DISTRIBUTION WIDTH 13.3 % (11.5-14.5); WHITE BLOOD COUNT 12.3 K/mm3 (4.0-10.0)
[2017-03-18 06:36] LABS: ANION GAP 7 MEQ/L (8-16); BLOOD UREA NITROGEN 18 MG/DL (7-18); CARBON DIOXIDE LEVEL 27 MEQ/L (21-32); CHLORIDE LEVEL 102 MEQ/L (98-107); CREATININE FOR GFR 0.82 MG/DL (0.55-1.02); GLOMERULAR FILTRATION RATE > 60.0 (>39); GLUCOSE, FASTING 97 MG/DL (83-110); MAGNESIUM LEVEL 2.1 MG/DL (1.8-2.4); SODIUM LEVEL 136 MEQ/L (136-145)
[2017-03-18] MEDS: HumaLOG INSULIN (NovoLOG) PER UNIT SC SCH ×4 (07:30→20:47)
[2017-03-18] MEDS: ADVAIR DISKUS 500/50 INH PWD INH SCH ×2 (07:45→20:02)
[2017-03-18] MEDS: TIOTROPIUM INHALER/CAPSULE (SPIRIVA) INH SCH (07:45)
[2017-03-18] MEDS: ALBUTEROL SULFATE 2.5 MG/0.5 ML INH NEB SOLN NEB SCH ×3 (07:45→20:00)
[2017-03-18] MEDS: NICOTINE 21MG/24HR 1 EA TRANSDERMAL TD SCH (08:36)
[2017-03-18] MEDS: PERCOCET 5MG/325MG TAB PO PRN ×2 (08:36→18:27)
[2017-03-18] MEDS: VITAMIN D 1,000 INTERNATIONAL UNITS TABLET PO SCH (08:37)
[2017-03-18] MEDS: guaiFENesin ER 600 MG TAB PO SCH ×2 (08:37→20:59)
[2017-03-18] MEDS: LOSARTAN 50 MG TAB PO SCH (08:37)
[2017-03-18] MEDS: THEOPHYLLINE (THEO-24) 100MG SR **CAPSULE PO SCH (08:37)
[2017-03-18] MEDS: predniSONE 10 MG TAB PO SCH (08:37)
[2017-03-18] MEDS: EZETIMIBE 10 MG TAB (ZETIA) PO SCH (08:37)
[2017-03-18] MEDS: SENNA 8.6 MG TAB (SENOKOT) PO SCH ×2 (08:38→20:59)
[2017-03-18] MEDS: SENOKOT S TAB PO SCH ×2 (08:38→20:59)
[2017-03-18] MEDS: LEVEMIR (INSULIN DETEMIR) 1 UNITS/0.01ML SC SCH (08:38)
[2017-03-18] MEDS: MIRALAX *UNIT DOSE* 17GM PACKET PO SCH (08:39)
--- NOTE | 2017-03-18 10:27 | REP ---
PORTABLE CHEST X-RAY: Single view. HISTORY: Congestion. Comparison study: March 13, 2017. FINDINGS: Oxygen delivery tubing is seen. The lungs are somewhat hyperinflated but free of infiltrate. Heart is not enlarged. Pulmonary vasculature is not increased. No significant bony abnormality is seen. IMPRESSION: Hyperinflation consistent with COPD. No acute disease. Signed by Guerrero Guerrero MD 03/18/2017 12:40 P
[2017-03-18 11:03] LABS: ABG BASE EXCESS 2.7 (-2.0-2.0); ABG HCO3 27.9 MEQ/L (22.0-26.0); ABG PARTIAL PRESSURE CO2 45.4 mmHg (35.0-45.0); ABG PARTIAL PRESSURE O2 86.5 mmHg (75.0-100.0); ABG STANDARD HCO3 26.9 MEQ/L (22.0-26.0); ABG TOTAL CO2 29.3 MEQ/L (23.0-31.0); ABG pH (ARTERIAL) 7.407 UNITS (7.350-7.450)
[2017-03-18] MEDS: ALBUTEROL SULFATE 2.5 MG/0.5 ML INH NEB SOLN NEB PRN (11:09)
[2017-03-18] MEDS ORDERED: ALBUTEROL SULFATE 2.5 MG/0.5 ML INH NEB SOLN NEB ONE (13:00)
--- NOTE | 2017-03-18 13:15 | IPNPDOC ---
Text Note Date of Service The patient was seen on 03/18/17. NOTE Subjective: Dyspnea is worse today. Minimal sputum production. No CP/ palpitations. Objective: Vitals: (see below) General: No acute distress, laying comfortably in bed. HEENT: Moist mucous membranes. Neck: No JVD or lymphadenopathy Cardiac: RRR, No murmurs Pulm: Exp wheezing b/l; improved from yesterday. No rhonchi Abd: NT/ND + BS. Reducible hernia. Ext: No edema or cyanosis Labs (see below) Images: Abd xray 03/14/17 - IMPRESSION: Nonspecific. CXR 03/13/17 - The technique utilized in obtaining the radiograph has magnified the cardiac silhouette and accentuated the interstitial markings. There has been no significant change. There is fibrotic change throughout without evidence of a patchy opacity or pleural effusion. There is no change in the osseous structures. IMPRESSION: No change. Assessment/Plan 1. Acute COPD exacerbation 2/2 Human rhinovirus/enterovirus. Cont steroid dose, cont nebs. D/c Levaquin. Has baseline severe COPD on home O2. 2. Type 2 Diabetes Mellitus - SSI. Cont Levemir and SSI. Steroid dose decreased. 3. RAJI - resolved. On IVF. 4. HLD - cont home meds 5. Hyponatremia/dehydration - Improved. 2/2 viral illness and HCTZ. HCTZ d/c. s/ p IVF. cont to monitor Repeat BMP. 6. HTN - cont losartan 7. Hypothyroidism -cont synthroid dose 8. Spiculated right nodule - followed by pulmonary 9. ANTONELLA opacity on levaquin. 10 Hernia- reducible. Seen by surgery in [place] and told they won't operate on her due to her poor lung function. DVT prophy: Heparin SQ Plan to d/c in the next 24-48 hrs if continues to improve. I have spoken to and updated pt's PCP, Dr. Gonzalez. Zane SANCHEZ, I+O Zane SANCHEZ, I+O Laboratory Tests 03/18/17 05:38 Calcium Level 8.0 L, Red Blood Count 4.34, Mean Corpuscular Volume 79.4 L, Mean Corpuscular Hemoglobin 26.8 L, Mean Corpuscular Hemoglobin Concent 33.8, Red Cell Distribution Width 13.3 Vital Signs Date Time Temp Pulse Resp B/P Pulse Ox O2 Delivery O2 Flow Rate FiO2 03/18/17 09:06 18 03/18/17 09:00 Nasal Cannula 2.0 03/18/17 08:37 159/72 03/18/17 06:00 98.5 86 99 I&O- Last 24 Hours up to 6 AM 03/18/17 06:00 Intake Total 1925 ml Output Total 2850 ml Balance -925 ml NEEMA ELLSWORTH MD Mar 18, 2017 13:14
[2017-03-18 14:00] VITALS: BP 159/69
[2017-03-18] MEDS: SIMVASTATIN 40 MG TAB PO SCH (20:58)
[2017-03-18 22:00] VITALS: BP 160/74
[2017-03-19] MEDS: ALBUTEROL SULFATE 2.5 MG/0.5 ML INH NEB SOLN NEB SCH ×2 (01:55→08:00)
[2017-03-19] MEDS: HEPARIN SOD (PORCINE) 5000 UNITS/ML VIAL SC SCH (05:39)
[2017-03-19] MEDS: LEVOTHYROXINE SODIUM 0.0625 MG 1/2 TAB (62.5MCG) PO SCH (05:40)
[2017-03-19 06:00] VITALS: BP 144/67
[2017-03-19 07:05] LABS: MEAN CORPUSCULAR HEMOGLOBIN 26.7 pg (27.0-33.0); MEAN CORPUSCULAR HGB CONC 33.8 g/dl (32.0-36.5); RED CELL DISTRIBUTION WIDTH 13.4 % (11.5-14.5); WHITE BLOOD COUNT 11.8 K/mm3 (4.0-10.0)
[2017-03-19 07:19] LABS: ANION GAP 9 MEQ/L (8-16); BLOOD UREA NITROGEN 18 MG/DL (7-18); CALCIUM LEVEL 8.7 MG/DL (8.8-10.2); CARBON DIOXIDE LEVEL 30 MEQ/L (21-32); CHLORIDE LEVEL 100 MEQ/L (98-107); CREATININE FOR GFR 0.77 MG/DL (0.55-1.02); GLOMERULAR FILTRATION RATE > 60.0 (>39); GLUCOSE, FASTING 113 MG/DL (83-110); POTASSIUM SERUM 3.4 MEQ/L (3.5-5.1); SODIUM LEVEL 139 MEQ/L (136-145)
[2017-03-19] MEDS: HumaLOG INSULIN (NovoLOG) PER UNIT SC SCH (07:30)
[2017-03-19] MEDS: ADVAIR DISKUS 500/50 INH PWD INH SCH (08:25)
[2017-03-19] MEDS: TIOTROPIUM INHALER/CAPSULE (SPIRIVA) INH SCH (08:26)
[2017-03-19] MEDS: MIRALAX *UNIT DOSE* 17GM PACKET PO SCH (09:00)
[2017-03-19 09:07] VITALS: BP 144/67
[2017-03-19] MEDS: LOSARTAN 50 MG TAB PO SCH (09:07)
[2017-03-19] MEDS: VITAMIN D 1,000 INTERNATIONAL UNITS TABLET PO SCH (09:08)
[2017-03-19] MEDS: SENNA 8.6 MG TAB (SENOKOT) PO SCH (09:08)
[2017-03-19] MEDS: predniSONE 10 MG TAB PO SCH (09:08)
[2017-03-19] MEDS: EZETIMIBE 10 MG TAB (ZETIA) PO SCH (09:08)
[2017-03-19] MEDS: SENOKOT S TAB PO SCH (09:08)
[2017-03-19] MEDS: guaiFENesin ER 600 MG TAB PO SCH (09:08)
[2017-03-19] MEDS: THEOPHYLLINE (THEO-24) 100MG SR **CAPSULE PO SCH (09:08)
[2017-03-19] MEDS: NICOTINE 21MG/24HR 1 EA TRANSDERMAL TD SCH (09:09)
[2017-03-19] MEDS: LEVEMIR (INSULIN DETEMIR) 1 UNITS/0.01ML SC SCH (09:10)
[2017-03-19] MEDS ORDERED: PRED10TA PO (11:13)
[2017-03-19] MEDS ORDERED: GUAI60TA PO (11:13)
--- NOTE | 2017-03-19 13:28 | DS.PDOC ---
Discharge Summary General Date of Admission Mar 14, 2017 at 01:08 Attending Physician: NEEMA ELLSWORTH MD Discharge Summary PROCEDURES PERFORMED DURING STAY: None. ADMITTING/DISCHARGE DIAGNOSES: 1. Acute COPD exacerbation 2/2 Human rhinovirus/enterovirus 2. Type 2 Diabetes Mellitus 3. RAJI, resolved 4. Hyponatremia/dehydration; resolved 5. Hypothyroidism 6. Spiculated right nodule 7. Abdominal hernia- reducible; outpt f/u 8. HLD COMPLICATIONS/CHIEF COMPLAINT: Copd Exacerbation. HISTORY OF PRESENT ILLNESS/HOSPITAL COURSE: . This is a 76-year-old female past history of COPD on 2 L home O2 who presents complaining of shortness breath, cough, had been seen by her primary care physician, and had progressive worsening of her dyspnea. Patient was noted to have a COPD exacerbation secondary to human rhinovirus/ enterovirus. Patient was started on steroids, nebulizers, had short course of Levaquin for possible concomitant bacterial bronchitis. Patient tolerated therapy well, although given her advanced COPD, who took her longer than usual to get back to her baseline. During her hospitalization patient also had hyponatremia as well as dehydration seconds to the viral illness as well as HCTZ. Her sodium is back to normal and she is well-hydrated. I discussed with Dr. Gonzalez her primary care physician who over following up with her. Patient will also be following up with her hydraulic specialist as well. DISCHARGE MEDICATIONS: Please see below. ALLERGIES: Please see below. PHYSICAL EXAMINATION ON DISCHARGE: Vitals: (see below) General: No acute distress, laying comfortably in bed. HEENT: Moist mucous membranes. Neck: No JVD or lymphadenopathy Cardiac: RRR, No murmurs Pulm: Minimal Exp wheezing b/l; improved from yesterday. No rhonchi Abd: NT/ND + BS. Reducible hernia. Ext: No edema or cyanosis LABORATORY DATA: Please see below. IMAGING: Abd xray 03/14/17 - IMPRESSION: Nonspecific. CXR 03/13/17 - The technique utilized in obtaining the radiograph has magnified the cardiac silhouette and accentuated the interstitial markings. There has been no significant change. There is fibrotic change throughout without evidence of a patchy opacity or pleural effusion. There is no change in the osseous structures. IMPRESSION: No change. PROGNOSIS: Fair, although has advanced COPD. At risk for recurrent hospitalizations. ACTIVITY: As tolerated. DIET: COPD diet DISCHARGE PLAN/DISPOSITION: Home, with home care DISCHARGE INSTRUCTIONS: 1. F/u with PCP and pulmonary in 1-2 weeks. DISCHARGE CONDITION: Stable. TIME SPENT ON DISCHARGE: Greater than 30 minutes. Vital Signs/I&Os Vital Signs Date Time Temp Pulse Resp B/P Pulse Ox O2 Delivery O2 Flow Rate FiO2 03/19/17 09:10 Nasal Cannula 2.0 03/19/17 09:07 144/67 03/19/17 06:00 97.3 72 18 96 I&O- Last 24 Hours up to 6 AM 03/19/17 06:00 Intake Total 1440 ml Output Total 1900 ml Balance -460 ml Laboratory Data Labs 24H Laboratory Tests 2 03/18/17 17:02: Bedside Glucose (Misc Panel) 252H 03/18/17 20:20: Bedside Glucose (Misc Panel) 232H 03/19/17 06:09: Anion Gap 9, Blood Urea Nitrogen 18, Creatinine 0.77, Sodium Level 139, Potassium Level 3.4L, Chloride Level 100, Carbon Dioxide Level 30, Calcium Level 8.7L, Glomerular Filtration Rate > 60.0, Magnesium Level 2.0 03/19/17 11:33: Bedside Glucose (Misc Panel) 193H CBC/BMP Laboratory Tests 03/19/17 06:09 Calcium Level 8.7 L, Red Blood Count 4.57, Mean Corpuscular Volume 79.0 L, Mean Corpuscular Hemoglobin 26.7 L, Mean Corpuscular Hemoglobin Concent 33.8, Red Cell Distribution Width 13.4 FSBS Laboratory Tests Test 03/18/17 17:02 03/18/17 20:20 03/19/17 11:33 Range/Units Bedside Glucose (Misc Panel) 252 232 193 83-110 MG/DL Microbiology Microbiology 03/13/17 Blood Culture - Final, Complete NO GROWTH AFTER 5 DAYS 03/13/17 Blood Culture - Final, Complete NO GROWTH AFTER 5 DAYS 03/13/17 Respiratory Virus Panel (PCR) ([facility]) - Final, Complete Human Rhinovirus/Enterovirus 03/13/17 Influenza Virus Type A Antigen - Final, Complete 03/13/17 Influenza Virus Type B Antigen - Final, Complete Discharge Medications Scheduled Cholecalciferol (Vitamin D) 1,000 Unit Tab 1,000 UNIT PO DAILY (Reported) Ezetimibe (Zetia) 10 Mg Tab 10 MG PO DAILY (Reported) Glipizide (Glipizide Xl) 5 Mg Tab 5 MG PO DAILY (Reported) Guaifenesin (Mucinex) 600 Mg Tab 1,200 MG PO BID Hydrochlorothiazide (Hydrochlorothiazide) 12.5 Mg Tab 12.5 MG PO DAILY ( Reported) Losartan Potassium (Losartan Potassium) 100 Mg Tab 100 MG PO DAILY (Reported) Metformin Hydrochloride (Metformin HCl) 500 Mg Tab 500 MG PO BID (Reported) Prednisone (Prednisone) 10 Mg Tab 30 MG PO DAILY Salmeterol/Fluticasone (Advair Diskus 500-50 Mcg/Dose) 28 Puff/Inhaler Aerp 1 PUFF INH BID (Reported) Simvastatin - High Dose (Simvastatin) 80 Mg Tab 80 MG PO QHS (Reported) Theophylline (Terrence-24) 400 Mg Cap 400 MG PO DAILY (Reported) Tiotropium Benson Monohydrate (Spiriva Handihaler) 18 Mcg Cap 1 DOSE INH DAILY (Reported) Scheduled PRN Albuterol Sulfate (Albuterol Sulfate) 2.5 Mg/3 Ml Nebu 2.5 MG INH Q4HP PRN PRN SHORTNESS OF BREATH (Reported) Albuterol Sulfate (Ventolin Hfa) 200 Puff/8 Gm Aers 2 PUFF INH Q4H PRN PRN SHORTNESS OF BREATH (Reported) Allergies Coded Allergies: Carisoprodol (Verified Allergy, Unknown, 06/06/14) Cephalosporins (Verified Allergy, Unknown, 02/28/13) Clavulanic Acid (Verified Allergy, Unknown, 02/28/13) Codeine (Verified Allergy, Unknown, 06/06/14) Penicillins (Verified Allergy, Unknown, 02/28/13) Penicillins Cross Reactors (Verified Allergy, Unknown, 02/28/13) Sulfa Drugs (Verified Allergy, Unknown, 02/28/13) Sulfa Drugs Cross Reactors (Verified Allergy, Unknown, 02/28/13) NEEMA ELLSWORTH MD Mar 19, 2017 13:28
== END 2017-03-19 12:12 | disposition home health service (06) | DRG 191 ==
LOC: EDBD 22:27 → M ED 23:32 → M ED INP 03-14 01:08 → M MSPAV 03-14 01:56
PROVIDERS: ADMIT Hospitalist; ATTEND Internal Medicine
DX: J44.1 Chronic obstructive pulmonary disease with (acute) exacerbation (principal); E87.1 Hypo-osmolality and hyponatremia; N17.9 Acute kidney failure, unspecified; J96.11 Chronic respiratory failure with hypoxia; J44.0 Chronic obstructive pulmonary disease with (acute) lower respiratory infection; E11.9 Type 2 diabetes mellitus without complications; E03.9 Hypothyroidism, unspecified; R91.8 Other nonspecific abnormal finding of lung field; K46.9 Unspecified abdominal hernia without obstruction or gangrene; B97.10 Unspecified enterovirus as the cause of diseases classified elsewhere; B97.89 Other viral agents as the cause of diseases classified elsewhere; Z79.899 Other long term (current) drug therapy; Z88.2 Allergy status to sulfonamides; Z88.5 Allergy status to narcotic agent; Z88.8 Allergy status to other drugs, medicaments and biological substances; K57.30 Diverticulosis of large intestine without perforation or abscess without bleeding; F17.200 Nicotine dependence, unspecified, uncomplicated; K59.00 Constipation, unspecified; K64.8 Other hemorrhoids; I10 Essential (primary) hypertension

== ENCOUNTER 2017-06-23 21:10 | Inpatient (IN) | payer MEDICARE, OTHER ==
[~2017-06-23] VITALS: Ht 157.5 cm; Wt 68.2 kg
[2017-06-23] MEDS: HumaLOG INSULIN (NovoLOG) PER UNIT SC SCH (21:00)
[~2017-06-23 21:10] MED LIST changes: -AVEL1TAB PO; +AVEL1TAB3 PO; +GLIP-162 PO; +HYDR12.55 PO; -METF1000 PO; +METF10004 PO; -METF500T PO; +METF500T13 PO; +MUCI600T31 PO; +PERC5TAB12 PO; -PERC5TAB6 PO; +PRED10TA2 PO; +THEO1CAP5 PO; -ZETI10TA2 PO; +ZETI10TA30 PO
[2017-06-23] MEDS ORDERED: IPRATROPIUM 0.5MG/ALBUTEROL 2.5MG INH SOL UD 3ML (DUONEB)(J7620) As Ordered ONE (21:28)
[2017-06-23] MEDS ORDERED: LEVO75TA4 PO (21:30)
[2017-06-23 21:43] LABS: BASO # 0.1 K/mm3 (0.0-0.2); EOS # 0.4 K/mm3 (0.0-0.50); EOS % 3.1 % (0.0-3.0); LARGE UNSTAINED CELL # 0.2 K/mm3 (0.0-0.4); LARGE UNSTAINED CELL % 1.6 % (0.0-4.0); LYMPH # 3.1 K/mm3 (1.5-4.5); LYMPH % 21.6 % (24.0-44.0); MEAN CORPUSCULAR HEMOGLOBIN 26.9 pg (27.0-33.0); MEAN CORPUSCULAR HGB CONC 33.4 g/dl (32.0-36.5); MEAN CORPUSCULAR VOLUME 80.7 fl (80.0-96.0); MONO # 0.9 K/mm3 (0.0-0.8); MONO % 6.5 % (0.0-5.0); NEUTROPHILS # 8.8 K/mm3 (1.8-7.7); NEUTROPHILS % 66.2 % (36.0-66.0); PLATELET COUNT, AUTOMATED 415 k/mm3 (150-450); RED CELL DISTRIBUTION WIDTH 13.3 % (11.5-14.5); WHITE BLOOD COUNT 13.3 K/mm3 (4.0-10.0)
[2017-06-23 21:44] LABS: VENOUS BASE EXCESS 1.9 (-2.0-2.0); VENOUS O2 SATURATION 94.2 % (60.0-80.0); VENOUS PARTIAL PRESSURE CO2 46.9 mmHg (38.0-50.0); VENOUS PARTIAL PRESSURE O2 67.4 mmHg (30.0-50.0); VENOUS STANDARD HCO3 26.1 MEQ/L
[2017-06-23] MEDS ORDERED: ASPIRIN 325 MG TAB PO ONE (21:45)
[2017-06-23] MEDS ORDERED: dexameTHASONE 20 MG/5 ML VIAL (J1100) IV ONE (21:45)
[2017-06-23 21:52] LABS: INR 0.89
[2017-06-23 22:03] LABS: ALBUMIN 3.6 GM/DL (3.2-5.2); ALBUMIN/GLOBULIN RATIO 1.16 (1.00-1.93); ALKALINE PHOSPHATASE 50 U/L (45-117); ALT/SGPT 16 U/L (12-78); ANION GAP 9 MEQ/L (8-16); AST/SGOT 9 U/L (15-37); BILIRUBIN,DIRECT 0.2 MG/DL (0.0-0.2); BILIRUBIN,TOTAL 0.5 MG/DL (0.2-1.0); BLOOD UREA NITROGEN 8 MG/DL (7-18); CALCIUM LEVEL 8.8 MG/DL (8.8-10.2); CARBON DIOXIDE LEVEL 28 MEQ/L (21-32); CHLORIDE LEVEL 101 MEQ/L (98-107); CREATININE FOR GFR 0.66 MG/DL (0.55-1.02); GLOMERULAR FILTRATION RATE > 60.0 (>39); GLUCOSE, FASTING 125 MG/DL (83-110); POTASSIUM SERUM 3.7 MEQ/L (3.5-5.1); SODIUM LEVEL 138 MEQ/L (136-145); TOTAL PROTEIN 6.7 GM/DL (6.4-8.2)
[2017-06-23] MEDS: IPRATROPIUM 0.5MG/ALBUTEROL 2.5MG INH SOL UD 3ML (DUONEB)(J7620) NEB SCH (22:22)
[2017-06-23] MEDS ORDERED: NS 1,000 ML IV SCH (23:02)
[2017-06-23] MEDS ORDERED: HYDR12CA PO (23:13)
[2017-06-23] MEDS ORDERED: THEO400T4 PO (23:13)
[2017-06-23] MEDS ORDERED: OXYC1TAB23 PO (23:13)
[2017-06-23] MEDS ORDERED: IPRATROPIUM 0.5MG/ALBUTEROL 2.5MG INH SOL UD 3ML (DUONEB)(J7620) NEB PRN (23:15)
[2017-06-23] MEDS ORDERED: GLUCAGON FOR INJ 1 MG VIAL (J1610) SC PRN (23:30)
[2017-06-23] MEDS ORDERED: DEXTROSE 50% 50 ML SYRINGE IV PRN (23:30)
[2017-06-23] MEDS ORDERED: GLUCOSE 4 GM CHEW TABLET PO PRN (23:30)
[2017-06-24 00:13] VITALS: BP 175/72
[2017-06-24] MEDS ORDERED: methylPREDNISolone INJ 40 MG/1 ML VIAL (J2920) IV SCH (04:00)
[2017-06-24] MEDS: LEVOTHYROXINE 75MCG TABLET (0.075MG) PO SCH (05:34)
[2017-06-24 06:00] VITALS: BP 165/75
[2017-06-24] MEDS: IPRATROPIUM 0.5MG/ALBUTEROL 2.5MG INH SOL UD 3ML (DUONEB)(J7620) NEB SCH ×4 (07:17→20:05)
--- NOTE | 2017-06-24 07:46 | REP ---
Portable chest, single AP view, and 24 p.m.: Comparison is 03/18/2017. The lung cervantes are clear. The cardiac size is normal. The george, mediastinum, and bony thorax are unremarkable. Impression: Negative portable chest. There is no interval change. Signed by Nestor Vega MD 06/24/2017 07:39 A
--- NOTE | 2017-06-24 07:57 | HPE ---
DATE OF ADMISSION: 06/23/2017 PRIMARY CARE PROVIDER: Dr. Bud Gonzalez. ATTENDING PHYSICIAN: Dr. Bradford Montalvo. CHIEF COMPLAINT: Shortness of breath and wheezing. HISTORY OF PRESENT ILLNESS: The patient is a 77-year-old white female with history of chronic obstructive pulmonary disease (COPD), as well as ongoing tobacco smoking, who presented to the hospital for evaluation of shortness of breath as well as wheezing. History is provided by herself, as well as by her who is with her in the emergency room (ER). Per patient, she smokes about half pack a day for more than 50 years, which is going on. She is using two liters oxygen at home continuously. She was here recently due to COPD exacerbation. She was discharged home on oral tapering prednisone. She states in the last 2-3 days, she has increasing difficulty breathing and wheezing, and also she stated she has worsening cough with whitish phlegm. She states she feels hot, but unable to check her temperature. Due to worsening difficulty breathing as well as chest heaviness, decided to come to the ER for further evaluation. In the ER, she underwent chest x-ray which did not show any acute changes. She was given intravenous (IV) steroids, nebulizer treatments. She is feeling a little bit better but she still has significant shortness of breath, so medicine service is called for admission. REVIEW OF SYSTEMS: Denies fever, no chills, but feels hot. No headache, no blurred vision. Positive shortness of breath. Positive wheezing. Positive coughing with whitish phlegm. Positive pleuritic chest pain, tightness, as well as pain. Denies nausea or vomiting. No abdominal pain, no diarrhea. No tingling, numbness or weakness in the arms or lower extremities. All other systems reviewed negative. PAST MEDICAL HISTORY: 1. COPD with two liters oxygen supplement at home. 2. Type 2 diabetes. 3. Hypertension. 4. Dyslipidemia. 5. Hypothyroidism. 6. Umbilical hernia. PAST SURGICAL HISTORY: 1. Right trigger finger release. 2. Tonsillectomy. 3. Thyroidectomy. 4. Bilateral cataract surgery. ALLERGIES: 1. SULFA. 2. KEFLEX. 3. AUGMENTIN. 4. SOMA. 5. CODEINE. MEDICATIONS: - Spiriva once a day - Zocor 80 mg by mouth daily - Advair twice a day - metformin 500 three times a day - losartan 100 mg by mouth daily - Synthroid 75 mcg by mouth daily - hydrochlorothiazide (HCTZ) 12.5 mg by mouth daily - glipizide 5 mg by mouth daily - Zebeta 10 mg by mouth daily FAMILY HISTORY: Her mother from a heart attack, and her father from bladder cancer at age 75. SOCIAL HISTORY: She smoked 1/2 pack a day for more than 50 years. Denies alcohol abuse. Denies illicit drug abuse. She is DO NOT RESUSCITATE, DO NOT INTUBATE. PHYSICAL EXAMINATION: VITAL SIGNS: Temperature 98.2, heart rate 123, respiratory rate 24, blood pressure 179/78, oxygen saturation 95% on three liters oxygen supplement. GENERAL: She is awake, alert, and oriented times three. She is in acute respiratory distress. HEENT: Atraumatic. Pupils equal, round, react to light. No jaundice. Ears, nose and throat normal. Mouth mucus dry. NECK: No jugular venous distention (JVD). No bruits. LUNGS: Diffuse wheezing but no crackles. HEART: Positive S1, S2. Regular. No murmur. Mild tachycardia. ABDOMEN: Soft. Bowel sounds positive. She has an umbilical hernia. No tenderness. LOWER EXTREMITIES: No edema in her bilateral lower extremities. NEUROLOGIC: Nonfocal. SKIN: No rash. PSYCHOLOGIC: No acute psychosis. DIAGNOSTIC LABORATORIES: CBC and differential: WBC 13, hemoglobin and hematocrit 13.6 over 41, platelets 415. Sodium 138, potassium 3.7, chloride 101, bicarbonate 28, BUN 8, creatinine 0.86, glucose 125. IMAGING: X-ray reviewed. No acute changes. IMPRESSION: 1. Acute on chronic respiratory failure. 2. Chronic obstructive pulmonary disease exacerbation. 3. Type 2 diabetes. 4. Hypertension. 5. Dyslipidemia. 6. Ongoing tobacco abuse. PLAN: The patient will be admitted to the medical/surgical floor. She is a DO NOT RESUSCITATE, DO NOT INTUBATE. I will treat her with intravenous (IV) steroids, nebulizer, as well as antibiotics. She will have oxygen supplement to try to keep her oxygen saturation between 88-92%. We will continue her most home medications. Dr. Bradford Montalvo will followup tomorrow. [facility]ERNITY HOSPITALMaria Teresa
[2017-06-24] MEDS ORDERED: metFORMIN (GLUCOPHAGE) 500 MG TAB PO SCH (08:00)
--- NOTE | 2017-06-24 08:49 | IPNPDOC ---
Subjective Date Seen The patient was seen on 06/24/17. Subjective Chief Complaint/HPI The patient is a 77-year-old female admitted with a reason for visit of Copd Exacerbation. General: Denies: ROS Unobtainable, Chills, Night Sweats, Fatigue, Malaise, Normal Appetite, Other Symptoms Constitutional: Denies: Chills, Fever, Malaise, Night Sweats, Weakness, Fatigue , Weight Loss, Lethargy, Other Eyes: Denies: Pain, Vision change, Conjunctivae inflammation, Eyelid inflammation, Redness, Other ENT: Denies: Head Aches, Ear Pain, Dysphagia, Sinus Congestion, Post Nasal Drip , Sore Throat, Epistaxis, Other Symptoms Skin: Denies: Rash, Lesions, Jaundice, Bruising, Itching, Dry, Breakdown, Nail Changes, Other Pulmonary: Reports: Dyspnea, Cough, Denies: Pleuritic Chest Pain, Other Symptoms Cardiovascular: Denies: Chest Pain, Palpitations, Orthopnea, Paroxysmal Noc. Dyspnea, Edema, Lt Headedness, Other Symptoms Gastrointestinal: Denies: Nausea, Vomiting, Abdominal Pain, Diarrhea, Constipation, Melena, Hematochezia, Other Symptoms Genitourinary: Denies: Dysuria, Frequency, Incontinence, Hematuria, Retention, Other Symptoms Objective Physical Examination General Exam: Positive: Alert, Cooperative, Mild Distress Eye Exam: Positive: PERRLA, Conjunctiva & lids normal, EOMI ENT Exam: Positive: Atraumatic, Mucous membr. moist/pink Neck Exam: Positive: Supple Chest Exam: Positive: Wheezing Heart Exam: Positive: Rate Normal, Regular Rhythm, Negative: Murmurs Abdomen Exam: Positive: Normal bowel sounds, Soft, Negative: Tenderness Extremity Exam: Negative: Edema Psych Exam: Positive: Oriented x 3 Assessment /Plan Problems (1) COPD exacerbation Status: Acute Response to Treatment: Improving Discussed With: Patient Problem Specific Plan: Monitor Clinically Problem Text: Taper steroids; contine with supplemental O2, respiratory treatments, IS, acapella, mucolytics, sputum culture, antimicrobial therapy - azithromycin. (2) Diabetes Status: Chronic Discussed With: Patient Problem Specific Plan: Monitor Clinically, Repeat Labs Problem Text: insulin, glipizide, FS achs, carb consistent/2 gram sodium/copd/ low fat low cholesterol diet (3) HTN (hypertension) Status: Chronic Discussed With: Patient Problem Specific Plan: Monitor Clinically Problem Text: Caesar (4) Dyslipidemia Status: Chronic Discussed With: Patient Problem Text: Kathleen Bang (5) Hypothyroidism Status: Chronic Discussed With: Patient Problem Specific Plan: Monitor Clinically Problem Text: Synthroid Plan/VTE VTE Prophylaxis Ordered?: Yes (lovenox) Plan IVF: Discontinue Diet: Continue Current Activity: Continue Current Medications: Taper Steroids Respiratory: Wean Oxygen Diagnostics: Repeat Labs in AM, Obtain Cultures Anticipated Discharge: Home Advance Directives: DNR VS, I&O, 24H, [place] Vital Signs/I&O Vital Signs Date Time Temp Pulse Resp B/P (MAP) Pulse Ox O2 Delivery O2 Flow Rate FiO2 06/24/17 06:00 96.5 81 20 165/75 (105) 96 Nasal Cannula 3.0 I&O- Last 24 Hours up to 6 AM 06/24/17 06:00 Intake Total 625 ml Output Total 0 ml Balance 625 ml Laboratory Data 24H LABS Laboratory Tests 2 06/23/17 21:26: White Blood Count 13.3H, Red Blood Count 5.07, Hemoglobin 13.6, Hematocrit 40.9 , Mean Corpuscular Volume 80.7, Mean Corpuscular Hemoglobin 26.9L, Mean Corpuscular Hemoglobin Concent 33.4, Red Cell Distribution Width 13.3, Platelet Count 415, Neutrophils (%) (Auto) 66.2H, Lymphocytes (%) (Auto) 21.6L, Monocytes (%) (Auto) 6.5H, Eosinophils (%) (Auto) 3.1H, Basophils (%) (Auto) 1.0 , Neutrophils # (Auto) 8.8H, Lymphocytes # (Auto) 3.1, Monocytes # (Auto) 0.9H, Eosinophils # (Auto) 0.4, Basophils # (Auto) 0.1, Large Unclassified Cells % 1.6 , Large Unclassified Cells # 0.2, Prothrombin Time 12.1L, Prothromb Time International Ratio 0.89, Activated Partial Thromboplast Time 28.5, Blood Gas Bicarbonate Standard 26.1, Venous Blood pH 7.387, Venous Blood Partial Pressure CO2 46.9, Venous Blood Partial Pressure O2 67.4H, Venous Blood Total Carbon Dioxide 29.0H, Venous Blood HCO3 27.6H, Venous Blood Oxygen Saturation 94.2H, Venous Blood Base Excess 1.9, Anion Gap 9, Glomerular Filtration Rate > 60.0, Calcium Level 8.8, Aspartate Amino Transf (AST/SGOT) 9L, Alanine Aminotransferase (ALT/SGPT) 16, Alkaline Phosphatase 50, Total Bilirubin 0.5, Direct Bilirubin 0.2, Total Creatine Kinase 53, Creatine Kinase MB 1.2, Creatine Kinase MB Relative Index 2.26, Troponin I < 0.02, Total Protein 6.7, Albumin 3.6, Albumin/Globulin Ratio 1.16, Lipase 124 06/23/17 21:27: B-Type Natriuretic Peptide 75.8 06/24/17 00:37: Bedside Glucose (Misc Panel) 160H 06/24/17 07:36: Bedside Glucose (Misc Panel) 195H CBC/BMP Laboratory Tests 06/23/17 21:26 Red Blood Count 5.07, Mean Corpuscular Volume 80.7, Mean Corpuscular Hemoglobin 26.9 L, Mean Corpuscular Hemoglobin Concent 33.4, Red Cell Distribution Width 13.3, Neutrophils (%) (Auto) 66.2 H, Lymphocytes (%) (Auto) 21.6 L, Monocytes (% ) (Auto) 6.5 H, Eosinophils (%) (Auto) 3.1 H, Basophils (%) (Auto) 1.0, Neutrophils # (Auto) 8.8 H, Lymphocytes # (Auto) 3.1, Monocytes # (Auto) 0.9 H, Eosinophils # (Auto) 0.4, Basophils # (Auto) 0.1 NORA URRUTIA MD Jun 24, 2017 08:49
[2017-06-24] MEDS: HumaLOG INSULIN (NovoLOG) PER UNIT SC SCH ×4 (10:12→20:48)
[2017-06-24] MEDS: hydroCHLOROthiazide 12.5 MG CAPSULE PO SCH (10:18)
[2017-06-24] MEDS: AZITHROMYCIN 250 MG TAB PO SCH (10:19)
[2017-06-24] MEDS: PANTOPRAZOLE 40MG TAB (PROTONIX) PO SCH (10:19)
[2017-06-24] MEDS: VITAMIN D 1,000 INTERNATIONAL UNITS TABLET PO SCH (10:19)
[2017-06-24] MEDS: glipiZIDE XL 5 MG TABCR PO SCH (10:19)
[2017-06-24] MEDS: ENOXAPARIN 40 MG/0.4 ML SYRINGE (J1650) SC SCH (10:19)
[2017-06-24] MEDS: PERCOCET 5MG/325MG TAB PO PRN ×2 (13:27→22:29)
[2017-06-24 14:00] VITALS: BP 165/72
[2017-06-24] MEDS: methylPREDNISolone INJ 40 MG/1 ML VIAL (J2920) IV SCH (17:48)
--- NOTE | 2017-06-24 19:08 | ECGEPIP ---
Stationary ECG Study [facility] - ED Test Date: 2017-06-23 Pat Name: HERB MAYA Department: Room: [place] [address] Gender: F Fire Official: mira : 1940 Requested By: CHAMP SUNSHINE Order Number: [id number] Reading MD: Chuy Elizondo Measurements Intervals [place] Rate: 112 P: 86 TX: 139 QRS: 85 QRSD: 101 T: 91 QT: 328 QTc: 448 Interpretive Statements SINUS TACHYCARDIA MODERATE ST DEPRESSION SIMILAR TO 03/13/17 Electronically Signed On 06-24-2017 19:08:05 EDT by Chuy Elizondo
[2017-06-24] MEDS: LOSARTAN 50 MG TAB PO SCH (20:57)
[2017-06-24] MEDS: EZETIMIBE 10 MG TAB (ZETIA) PO SCH (20:58)
[2017-06-24] MEDS: SIMVASTATIN 40 MG TAB PO SCH (20:58)
[2017-06-24 22:00] VITALS: BP 141/86
[2017-06-25] MEDS: methylPREDNISolone INJ 40 MG/1 ML VIAL (J2920) IV SCH (04:12)
[2017-06-25] MEDS: LEVOTHYROXINE 75MCG TABLET (0.075MG) PO SCH (05:42)
[2017-06-25 06:00] VITALS: BP 145/72
[2017-06-25 06:07] LABS: MEAN CORPUSCULAR HEMOGLOBIN 27.3 pg (27.0-33.0); MEAN CORPUSCULAR HGB CONC 33.4 g/dl (32.0-36.5); MEAN CORPUSCULAR VOLUME 81.7 fl (80.0-96.0); RED CELL DISTRIBUTION WIDTH 13.5 % (11.5-14.5); WHITE BLOOD COUNT 13.5 K/mm3 (4.0-10.0)
[2017-06-25 06:18] LABS: ANION GAP 7 MEQ/L (8-16); BLOOD UREA NITROGEN 18 MG/DL (7-18); CALCIUM LEVEL 9.1 MG/DL (8.8-10.2); CARBON DIOXIDE LEVEL 29 MEQ/L (21-32); CHLORIDE LEVEL 103 MEQ/L (98-107); GLOMERULAR FILTRATION RATE > 60.0 (>39); GLUCOSE, FASTING 180 MG/DL (83-110); POTASSIUM SERUM 4.5 MEQ/L (3.5-5.1); SODIUM LEVEL 139 MEQ/L (136-145)
[2017-06-25] MEDS: IPRATROPIUM 0.5MG/ALBUTEROL 2.5MG INH SOL UD 3ML (DUONEB)(J7620) NEB SCH ×4 (07:08→21:00)
--- NOTE | 2017-06-25 08:28 | IPNPDOC ---
Subjective Date Seen The patient was seen on 06/25/17. Subjective Chief Complaint/HPI The patient is a 77-year-old female admitted with a reason for visit of Copd Exacerbation. General: Denies: ROS Unobtainable, Chills, Night Sweats, Fatigue, Malaise, Normal Appetite, Other Symptoms Constitutional: Denies: Chills, Fever, Malaise, Night Sweats, Weakness, Fatigue , Weight Loss, Lethargy, Other Eyes: Denies: Pain, Vision change, Conjunctivae inflammation, Eyelid inflammation, Redness, Other ENT: Denies: Head Aches, Ear Pain, Dysphagia, Sinus Congestion, Post Nasal Drip , Sore Throat, Epistaxis, Other Symptoms Skin: Denies: Rash, Lesions, Jaundice, Bruising, Itching, Dry, Breakdown, Nail Changes, Other Pulmonary: Reports: Dyspnea, Cough, Denies: Pleuritic Chest Pain, Other Symptoms Cardiovascular: Denies: Chest Pain, Palpitations, Orthopnea, Paroxysmal Noc. Dyspnea, Edema, Lt Headedness, Other Symptoms Gastrointestinal: Denies: Nausea, Vomiting, Abdominal Pain, Diarrhea, Constipation, Melena, Hematochezia, Other Symptoms Genitourinary: Denies: Dysuria, Frequency, Incontinence, Hematuria, Retention, Other Symptoms Objective Physical Examination General Exam: Positive: Alert, Cooperative, No Acute Distress Eye Exam: Positive: PERRLA, Conjunctiva & lids normal, EOMI ENT Exam: Positive: Atraumatic, Mucous membr. moist/pink Neck Exam: Positive: Supple Chest Exam: Positive: Wheezing Heart Exam: Positive: Rate Normal, Regular Rhythm, Negative: Murmurs Abdomen Exam: Positive: Normal bowel sounds, Soft, Negative: Tenderness Extremity Exam: Negative: Edema Psych Exam: Positive: Oriented x 3 Assessment /Plan Problems (1) COPD exacerbation Status: Acute Response to Treatment: Improving Discussed With: Patient Problem Specific Plan: Monitor Clinically Problem Text: Taper steroids; contine with supplemental O2, respiratory treatments, IS, acapella, mucolytics, sputum culture, antimicrobial therapy - azithromycin. Added spiriva, advair, ventolin as per home Rx and pt request. (2) Diabetes Status: Chronic Discussed With: Patient Problem Specific Plan: Monitor Clinically, Repeat Labs Problem Text: insulin, glipizide, FS achs, carb consistent/2 gram sodium/copd/ low fat low cholesterol diet (3) HTN (hypertension) Status: Chronic Discussed With: Patient Problem Specific Plan: Monitor Clinically Problem Text: Caesar (4) Dyslipidemia Status: Chronic Discussed With: Patient Problem Text: Kathleen Bang (5) Hypothyroidism Status: Chronic Discussed With: Patient Problem Specific Plan: Monitor Clinically Problem Text: Synthroid Plan/VTE VTE Prophylaxis Ordered?: Yes (lovenox) Plan IVF: Discontinue Diet: Continue Current Activity: Continue Current Medications: Taper Steroids Respiratory: Wean Oxygen Diagnostics: Repeat Labs in AM, Obtain Cultures Anticipated Discharge: Home Advance Directives: DNR VS, I&O, 24H, [place] Vital Signs/I&O Vital Signs Date Time Temp Pulse Resp B/P (MAP) Pulse Ox O2 Delivery O2 Flow Rate FiO2 06/25/17 06:00 98.0 75 20 145/72 (96) 92 Room Air 06/24/17 22:00 3.0 I&O- Last 24 Hours up to 6 AM 06/25/17 06:00 Intake Total 1410 ml Output Total 825 ml Balance 585 ml Laboratory Data 24H LABS Laboratory Tests 2 06/24/17 12:21: Bedside Glucose (Misc Panel) 267H 06/24/17 16:52: Bedside Glucose (Misc Panel) 151H 06/24/17 20:12: Bedside Glucose (Misc Panel) 169H 06/25/17 05:18: Anion Gap 7L, Glomerular Filtration Rate > 60.0, Blood Urea Nitrogen 18#, Creatinine 0.90, Sodium Level 139, Potassium Level 4.5#, Chloride Level 103, Carbon Dioxide Level 29, Calcium Level 9.1 CBC/BMP Laboratory Tests 06/25/17 05:18 Red Blood Count 4.25, Mean Corpuscular Volume 81.7, Mean Corpuscular Hemoglobin 27.3, Mean Corpuscular Hemoglobin Concent 33.4, Red Cell Distribution Width 13.5 , Calcium Level 9.1 Microbiology Microbiology 06/24/17 Respiratory Virus Panel (PCR) ([facility]) - Final, Complete 06/24/17 Gram Stain - Final, Complete 06/24/17 Sputum Culture - Final, Complete NORA URRUTIA MD Jun 25, 2017 08:28
[2017-06-25] MEDS ORDERED: ALBUTEROL 90 MCG/ACT 8GM HFA INHALER INH PRN (08:30)
[2017-06-25] MEDS: HumaLOG INSULIN (NovoLOG) PER UNIT SC SCH ×4 (09:08→21:00)
[2017-06-25] MEDS: predniSONE 20 MG TAB PO SCH (09:08)
[2017-06-25] MEDS: AZITHROMYCIN 250 MG TAB PO SCH (09:08)
[2017-06-25] MEDS: PANTOPRAZOLE 40MG TAB (PROTONIX) PO SCH (09:08)
[2017-06-25] MEDS: glipiZIDE XL 5 MG TABCR PO SCH (09:08)
[2017-06-25] MEDS: VITAMIN D 1,000 INTERNATIONAL UNITS TABLET PO SCH (09:08)
[2017-06-25] MEDS: ENOXAPARIN 40 MG/0.4 ML SYRINGE (J1650) SC SCH (09:09)
[2017-06-25] MEDS: hydroCHLOROthiazide 12.5 MG CAPSULE PO SCH (09:09)
[2017-06-25] MEDS: ACETAMINOPHEN TAB 650MG DOSE (2X325MG) PO PRN (09:16)
[2017-06-25] MEDS: TIOTROPIUM INHALER/CAPSULE (SPIRIVA) INH SCH (11:14)
[2017-06-25] MEDS: ADVAIR HFA 230/21MCG INHALER INH SCH ×2 (11:14→20:07)
[2017-06-25 14:00] VITALS: BP 163/90
[2017-06-25] MEDS: PERCOCET 5MG/325MG TAB PO PRN (15:39)
[2017-06-25 21:09] VITALS: BP 162/70
[2017-06-25] MEDS: LOSARTAN 50 MG TAB PO SCH (21:09)
[2017-06-25] MEDS: SIMVASTATIN 40 MG TAB PO SCH (21:10)
[2017-06-25] MEDS: EZETIMIBE 10 MG TAB (ZETIA) PO SCH (21:10)
[2017-06-25 23:59] VITALS: BP 162/70
[2017-06-26] MEDS: LEVOTHYROXINE 75MCG TABLET (0.075MG) PO SCH (05:39)
[2017-06-26] MEDS: ACETAMINOPHEN TAB 650MG DOSE (2X325MG) PO PRN (05:39)
[2017-06-26 05:54] LABS: MEAN CORPUSCULAR HGB CONC 33.4 g/dl (32.0-36.5); MEAN CORPUSCULAR VOLUME 81.1 fl (80.0-96.0); RED CELL DISTRIBUTION WIDTH 13.4 % (11.5-14.5)
[2017-06-26 06:00] VITALS: BP 132/68
[2017-06-26 06:06] LABS: ANION GAP 8 MEQ/L (8-16); BLOOD UREA NITROGEN 21 MG/DL (7-18); CARBON DIOXIDE LEVEL 29 MEQ/L (21-32); CHLORIDE LEVEL 101 MEQ/L (98-107); CREATININE FOR GFR 0.82 MG/DL (0.55-1.02); GLOMERULAR FILTRATION RATE > 60.0 (>39); GLUCOSE, FASTING 100 MG/DL (83-110); POTASSIUM SERUM 3.8 MEQ/L (3.5-5.1); SODIUM LEVEL 138 MEQ/L (136-145)
[2017-06-26] MEDS: HumaLOG INSULIN (NovoLOG) PER UNIT SC SCH ×2 (07:30→12:15)
[2017-06-26] MEDS: ADVAIR HFA 230/21MCG INHALER INH SCH (08:02)
[2017-06-26] MEDS: TIOTROPIUM INHALER/CAPSULE (SPIRIVA) INH SCH (08:02)
[2017-06-26] MEDS: IPRATROPIUM 0.5MG/ALBUTEROL 2.5MG INH SOL UD 3ML (DUONEB)(J7620) NEB SCH ×2 (08:03→11:09)
[2017-06-26] MEDS: VITAMIN D 1,000 INTERNATIONAL UNITS TABLET PO SCH (09:38)
[2017-06-26] MEDS: PANTOPRAZOLE 40MG TAB (PROTONIX) PO SCH (09:38)
[2017-06-26] MEDS: predniSONE 20 MG TAB PO SCH (09:38)
[2017-06-26] MEDS: hydroCHLOROthiazide 12.5 MG CAPSULE PO SCH (09:38)
[2017-06-26] MEDS: ENOXAPARIN 40 MG/0.4 ML SYRINGE (J1650) SC SCH (09:39)
[2017-06-26] MEDS: AZITHROMYCIN 250 MG TAB PO SCH (09:40)
[2017-06-26] MEDS: glipiZIDE XL 5 MG TABCR PO SCH (09:53)
[2017-06-26] MEDS ORDERED: PRED10TA2 PO (12:08)
[2017-06-26] MEDS ORDERED: AZIT500T2 PO (12:09)
[2017-06-26] MEDS: PERCOCET 5MG/325MG TAB PO PRN (12:17)
[2017-06-27] MEDS ORDERED: AZITHROMYCIN 250 MG TAB PO SCH
[2017-06-27] MEDS ORDERED: predniSONE 20 MG TAB PO SCH
--- NOTE | 2017-06-27 12:27 | DS.PDOC ---
Discharge Summary General Date of Admission Jun 23, 2017 at 23:02 Date of Discharge 06/26/17 Discharge Summary PROCEDURES PERFORMED DURING STAY: [None]. DISCHARGE DIAGNOSES: 1. Severe COPD 2. Diabetes 3. HTN 4. Dyslipidemia 5. Nicotine addiction 6. Non-compliance 7. Hypothyroidism COMPLICATIONS/CHIEF COMPLAINT: Copd Exacerbation. HOSPITAL COURSE: 77 yo female with multiple hospital admission returns for shortness of breath, determined to be exacerbation of COPD. Responded well to typical treatment of IV steroid, antibiotics, and respiratory treatments. Patient states she only uses oxygen as needed, not with ambulation. It was determined she does need oxygen / , with ambulation. Patient was set up with portable oxygen tanks. Patient voiced understanding and agreed with continuous oxygen requirements. Hospital stay otherwise unremarkable. DISCHARGE MEDICATIONS: Please see below. ALLERGIES: Please see below. PHYSICAL EXAMINATION ON DISCHARGE: VITAL SIGNS: Please see below. GENERAL: NAD HEENT: NC/AT, EOMI, PERRL NECK: supple CARDIOVASCULAR EXAMINATION: +S1S2, RRR RESPIRATORY EXAMINATION: CTA B/L ABDOMINAL EXAMINATION: soft, NT, +BS EXTREMITIES: no edema SKIN: no rashes NEUROLOGICAL EXAMINATION: no gross focal deficits PSYCHIATRIC EXAMINATION: AAOx3 LABORATORY DATA: Please see below. IMAGING: PROGNOSIS: Somewhat guarded given non-compliance with medications and smoking cessation. ACTIVITY: [As tolerated]. DIET: 2 gram sodium, COPD, carb consistent DISPOSITION: 01 Home, Self-Care. DISCHARGE INSTRUCTIONS: 1. Stop smoking. 2. Oxygen as directed. 3. Medications as directed. 4. Follow up with PCP as directed. DISCHARGE CONDITION: [Stable]. TIME SPENT ON DISCHARGE: Greater than 30 minutes. Vital Signs/I&Os Vital Signs Date Time Temp Pulse Resp B/P (MAP) Pulse Ox O2 Delivery O2 Flow Rate FiO2 06/26/17 12:47 16 Nasal Cannula 2.0 06/26/17 06:00 97.6 78 132/68 (80) 94 I&O- Last 24 Hours up to 6 AM 06/27/17 06:00 Intake Total 480 ml Output Total 200 ml Balance 280 ml Microbiology Microbiology 06/25/17 Gram Stain - Final, Complete 06/25/17 Sputum Culture - Final, Complete 06/24/17 Respiratory Virus Panel (PCR) (LANA) - Final, Complete 06/24/17 Gram Stain - Final, Complete 06/24/17 Sputum Culture - Final, Complete Discharge Medications Scheduled Azithromycin (Azithromycin) 500 Mg Tab, 500 MG PO DAILY Cholecalciferol (Vitamin D) 1,000 Unit Tab, 1,000 UNIT PO DAILY, (Reported) Ezetimibe (Zetia) 10 Mg Tab, 10 MG PO QHS, (Reported) Glipizide (Glipizide Xl) 5 Mg Tab, 5 MG PO DAILY, (Reported) Hydrochlorothiazide (Hydrochlorothiazide) 12.5 Mg Cap, 12.5 MG PO DAILY, ( Reported) Levothyroxine Sodium (Synthroid) 75 Mcg Tab, 75 MCG PO DAILY, (Reported) Losartan Potassium (Losartan Potassium) 100 Mg Tab, 100 MG PO QHS, (Reported) Metformin Hydrochloride (Metformin HCl) 500 Mg Tab, 500 MG PO BID, (Reported) Prednisone (Prednisone) 10 Mg Tab, 10 MG PO TAPER Take 4 tabs daily x 3 days, then 3 tabs daily x 3 days, then 2 tabs daily x 3 days, then 1 tab daily x 3 days and stop Salmeterol/Fluticasone (Advair Diskus 500-50 Mcg/Dose) 28 Puff/Inhaler Aerp, 1 PUFF INH BID, (Reported) Simvastatin - High Dose (Simvastatin) 80 Mg Tab, 80 MG PO QHS, (Reported) Theophylline (Theophylline ER) 400 Mg Tabcr, 400 MG PO QPM, (Reported) Tiotropium [place] Monohydrate (Spiriva Handihaler) 18 Mcg Cap, 1 DOSE INH DAILY , (Reported) Scheduled PRN Albuterol Sulfate (Albuterol Sulfate) 2.5 Mg/3 Ml Nebu, 2.5 MG INH Q4HP PRN for SHORTNESS OF BREATH, (Reported) Albuterol Sulfate (Ventolin Hfa) 200 Puff/8 Gm Aers, 2 PUFF INH Q4H PRN for SHORTNESS OF BREATH, (Reported) Oxycodone/Acetaminophen (Oxycodone/Acetaminophen 5-325 mg) 1 Tab Tab, 1 TAB PO TID PRN for PAIN, (Reported) Allergies Coded Allergies: Carisoprodol (Verified Allergy, Unknown, 06/06/14) Cephalosporins (Verified Allergy, Unknown, 02/28/13) Clavulanic Acid (Verified Allergy, Unknown, 02/28/13) Codeine (Verified Allergy, Unknown, 7/9/14) Penicillins (Verified Allergy, Unknown, 02/28/13) Penicillins Cross Reactors (Verified Allergy, Unknown, 02/28/13) Sulfa Drugs (Verified Allergy, Unknown, 02/28/13) Sulfa Drugs Cross Reactors (Verified Allergy, Unknown, 02/28/13) NORA URRUTIA MD Jun 27, 2017 12:27
== END 2017-06-26 13:23 | disposition home or self-care (01) | DRG 192 ==
LOC: M ED 21:10 → M ED INP 23:02 → M MSPAV 06-24 00:13
PROVIDERS: ADMIT Hospitalist; ATTEND Internal Medicine
DX: J44.1 Chronic obstructive pulmonary disease with (acute) exacerbation (principal); E11.9 Type 2 diabetes mellitus without complications; I10 Essential (primary) hypertension; F17.210 Nicotine dependence, cigarettes, uncomplicated; E78.5 Hyperlipidemia, unspecified; Z66 Do not resuscitate; E03.9 Hypothyroidism, unspecified; Z79.84 Long term (current) use of oral hypoglycemic drugs; Z88.1 Allergy status to other antibiotic agents; Z88.5 Allergy status to narcotic agent; Z88.0 Allergy status to penicillin; Z88.2 Allergy status to sulfonamides; Z88.8 Allergy status to other drugs, medicaments and biological substances; Z79.899 Other long term (current) drug therapy; Z99.81 Dependence on supplemental oxygen; Z91.19 Patient's noncompliance with other medical treatment and regimen; Z98.41 Cataract extraction status, right eye; Z98.42 Cataract extraction status, left eye

== ENCOUNTER 2017-12-26 11:38 | Inpatient (IN) | payer MEDICARE, OTHER ==
[2017-12-26] MEDS: methylPREDNISolone INJ 125 MG/2 ML VIAL (J2930) IV (12:31)
[2017-12-26 12:33] LABS: BASO # 0.1 10^3/uL (0.0-0.2); BASO % 1.2 % (0.0-1.0); EOS # 0.2 10^3/uL (0.0-0.50); EOS % 1.8 % (0.0-3.0); HEMATOCRIT 42.9 % (36.0-47.0); HEMOGLOBIN 13.8 g/dl (12.0-16.0); IMMATURE GRANULOCYTE % 0.3 % (0-0); LYMPH # 2.2 10^3/uL (1.5-4.5); LYMPH % 19.8 % (24.0-44.0); MEAN CORPUSCULAR HEMOGLOBIN 26.1 pg (27.0-33.0); MEAN CORPUSCULAR HGB CONC 32.2 g/dl (32.0-36.5); MEAN CORPUSCULAR VOLUME 81.3 fl (80.0-96.0); MONO # 0.8 10^3/uL (0.0-0.8); NEUTROPHILS # 7.8 10^3/uL (1.8-7.7); NEUTROPHILS % 69.9 % (36.0-66.0); PLATELET COUNT, AUTOMATED 442 10^3/uL (150-450); RED BLOOD COUNT 5.28 10^6/uL (4.00-5.40); WHITE BLOOD COUNT 11.1 10^3/uL (4.0-10.0)
[2017-12-26] MEDS: IPRATROPIUM 0.5MG/ALBUTEROL 2.5MG INH SOL UD 3ML (DUONEB)(J7620) NEB ×5 (12:38→23:48)
[2017-12-26 12:42] LABS: ABG BASE EXCESS -2.2 (-2.0-2.0); ABG HCO3 21.5 MEQ/L (22.0-26.0); ABG O2 SATURATION 94.5 % (95.0-99.0); ABG PARTIAL PRESSURE CO2 34.1 mmHg (35.0-45.0); ABG PARTIAL PRESSURE O2 70.3 mmHg (75.0-100.0); ABG STANDARD HCO3 22.5 MEQ/L (22.0-26.0); ABG TOTAL CO2 22.6 MEQ/L (23.0-31.0); ABG pH (ARTERIAL) 7.418 UNITS (7.350-7.450)
[2017-12-26 12:58] LABS: ANION GAP 10 MEQ/L (8-16); BLOOD UREA NITROGEN 19 MG/DL (7-18); CARBON DIOXIDE LEVEL 28 MEQ/L (21-32); CHLORIDE LEVEL 99 MEQ/L (98-107); CPK CREATINE PHOSPHOKINASE 88 U/L (26-192); CREATININE FOR GFR 0.91 MG/DL (0.55-1.02); GLOMERULAR FILTRATION RATE > 60.0 (>39); GLUCOSE, FASTING 199 MG/DL (70-100); POTASSIUM SERUM 4.3 MEQ/L (3.5-5.1); SODIUM LEVEL 137 MEQ/L (136-145); TROPONIN I < 0.02 NG/ML (< 0.10)
[2017-12-26 12:59] LABS: CK-MB VALUE MASS 1.4 NG/ML (0.0-3.6); MB/CK RELATIVE INDEX 1.59 (< OR =4)
[2017-12-26 13:03] LABS: NT-PRO BNP 27 PG/ML (<450)
[2017-12-26 13:11] LABS: LACTIC ACID SEPSIS PROTOCOL 3.2 MMOL/L (0.4-2.0)
[2017-12-26 13:13] LABS: INFLUENZA A AMPLIFICATION NEGATIVE (NEGATIVE); INFLUENZA B AMPLIFICATION NEGATIVE (NEGATIVE)
[2017-12-26] MEDS: ACETAMINOPHEN TAB 650MG DOSE (2X325MG) PO (14:00)
[2017-12-26] MEDS ORDERED: DEXTROSE 50% 50 ML SYRINGE IV (14:30)
[2017-12-26] MEDS ORDERED: GLUCOSE 4 GM CHEW TABLET PO (14:30)
[2017-12-26] MEDS ORDERED: ONDANSETRON 4MG/2ML VIAL (J2405) IV (14:30)
[2017-12-26] MEDS ORDERED: ACETAMINOPHEN TAB 650MG DOSE (2X325MG) PO (14:30)
[2017-12-26] MEDS ORDERED: GLUCAGON FOR INJ 1 MG VIAL (J1610) SC (14:30)
[2017-12-26 14:48] LABS: BEDSIDE GLUCOSE 150 MG/DL (83-110)
[2017-12-26] MEDS: AZITHROMYCIN INJ 500 MG, VIAL MATE ADAPTER 1 EACH in D5W 250 ML IV (16:32)
[2017-12-26] MEDS: HumaLOG INSULIN (NovoLOG) PER UNIT SC ×2 (17:50→21:50)
[2017-12-26] MEDS: SODIUM CHLORIDE 0.9% 1000 ML IV (17:51)
[2017-12-26 18:24] LABS: THEOPHYLLINE LEVEL 8.3 UG/ML (10.0-20.0)
[2017-12-26] MEDS: THEOPHYLLINE (THEO-24) 100MG SR **CAPSULE PO (21:48)
[2017-12-26] MEDS: LOSARTAN 50 MG TAB PO (21:49)
[2017-12-26] MEDS: SIMVASTATIN 40 MG TAB PO (21:49)
[2017-12-26] MEDS: EZETIMIBE 10 MG TAB (ZETIA) PO (21:50)
[2017-12-26] MEDS: DOCUSATE SODIUM 100 MG CAP PO (21:50)
[2017-12-26] MEDS: ADVAIR HFA 230/21MCG INHALER INH (21:51)
[2017-12-26] MEDS: PERCOCET 5MG/325MG TAB PO (21:51)
[2017-12-27] MEDS: methylPREDNISolone INJ 125 MG/2 ML VIAL (J2930) IV ×3 (00:58→23:45)
[2017-12-27 06:08] LABS: HEMATOCRIT 37.4 % (36.0-47.0); HEMOGLOBIN 12.1 g/dl (12.0-16.0); MEAN CORPUSCULAR HGB CONC 32.4 g/dl (32.0-36.5); MEAN CORPUSCULAR VOLUME 80.3 fl (80.0-96.0); PLATELET COUNT, AUTOMATED 403 10^3/uL (150-450); RED BLOOD COUNT 4.66 10^6/uL (4.00-5.40); RED CELL DISTRIBUTION WIDTH 13.4 % (11.5-14.5); WHITE BLOOD COUNT 9.9 10^3/uL (4.0-10.0)
[2017-12-27] MEDS: LEVOTHYROXINE 75MCG TABLET (0.075MG) PO (06:16)
[2017-12-27 06:30] LABS: ANION GAP 8 MEQ/L (8-16); BLOOD UREA NITROGEN 21 MG/DL (7-18); CALCIUM LEVEL 8.8 MG/DL (8.8-10.2); CARBON DIOXIDE LEVEL 26 MEQ/L (21-32); CHLORIDE LEVEL 98 MEQ/L (98-107); CREATININE FOR GFR 0.79 MG/DL (0.55-1.02); GLOMERULAR FILTRATION RATE > 60.0 (>39); GLUCOSE, FASTING 266 MG/DL (70-100); POTASSIUM SERUM 4.3 MEQ/L (3.5-5.1); SODIUM LEVEL 132 MEQ/L (136-145)
[2017-12-27] MEDS: TIOTROPIUM INHALER/CAPSULE (SPIRIVA) INH (07:40)
[2017-12-27] MEDS: ADVAIR HFA 230/21MCG INHALER INH ×2 (07:40→20:25)
[2017-12-27] MEDS: IPRATROPIUM 0.5MG/ALBUTEROL 2.5MG INH SOL UD 3ML (DUONEB)(J7620) NEB ×3 (07:41→23:42)
[2017-12-27] MEDS: PERCOCET 5MG/325MG TAB PO ×2 (07:46→17:16)
[2017-12-27] MEDS: HumaLOG INSULIN (NovoLOG) PER UNIT SC ×4 (07:46→22:49)
[2017-12-27] MEDS: DOCUSATE SODIUM 100 MG CAP PO ×2 (07:47→22:47)
[2017-12-27] MEDS: VITAMIN D 1,000 INTERNATIONAL UNITS TABLET PO (07:47)
[2017-12-27] MEDS: hydroCHLOROthiazide 12.5 MG CAPSULE PO (07:47)
[2017-12-27] MEDS: ENOXAPARIN 30 MG/0.3 ML SYR (J1650) SC (07:47)
[2017-12-27 10:40] LABS: KETONE, URINE AUTO RFX NEGATIVE (NEGATIVE); LEUKOCYTE ESTERASE UR AUTO RFX NEGATIVE (NEGATIVE); NITRITE, URINE AUTO RFX NEGATIVE (NEGATIVE); RBC, URINE AUTO RFX 1 /HPF (0-3); SPECIFIC GRAVITY UR AUTO RFX 1.017 (1.002-1.035); SQUAM EPITHELIAL CELL UR AURFX 0 /HPF (0-6); WBC, URINE AUTO RFX 0 /HPF (0-3)
[2017-12-27] MEDS: SENNA 8.6 MG TAB (SENOKOT) PO (11:44)
[2017-12-27] MEDS: DOXYCYCLINE HYCLATE 100 MG in D5W MINI-BAG PLUS 100 ML IV ×2 (11:44→23:45)
[2017-12-27] MEDS: MIRALAX *UNIT DOSE* 17GM PACKET PO ×2 (11:44→22:49)
[2017-12-27 11:45] LABS: BEDSIDE GLUCOSE 267 MG/DL (83-110)
[2017-12-27 11:45] LABS: BEDSIDE GLUCOSE 398 MG/DL (83-110)
[2017-12-27 12:08] LABS: BEDSIDE GLUCOSE 259 MG/DL (83-110)
[2017-12-27] MEDS: KCL 20MEQ in NS 1000ML 1,000 ML IV (15:00)
[2017-12-27 16:36] LABS: BEDSIDE GLUCOSE 205 MG/DL (83-110)
[2017-12-27 20:14] LABS: BEDSIDE GLUCOSE 314 MG/DL (83-110)
[2017-12-27] MEDS: THEOPHYLLINE (THEO-24) 100MG SR **CAPSULE PO (22:46)
[2017-12-27] MEDS: EZETIMIBE 10 MG TAB (ZETIA) PO (22:46)
[2017-12-27] MEDS: LOSARTAN 50 MG TAB PO (22:47)
[2017-12-27] MEDS: SIMVASTATIN 40 MG TAB PO (22:48)
[2017-12-28] MEDS: PHENAZOPYRIDINE 100 MG TAB PO ×4 (00:42→22:24)
[2017-12-28] MEDS: FLUCONAZOLE 50MG TABLET PO (00:42)
[2017-12-28 06:15] LABS: HEMATOCRIT 34.1 % (36.0-47.0); HEMOGLOBIN 11.4 g/dl (12.0-16.0); MEAN CORPUSCULAR HEMOGLOBIN 26.5 pg (27.0-33.0); MEAN CORPUSCULAR HGB CONC 33.4 g/dl (32.0-36.5); MEAN CORPUSCULAR VOLUME 79.1 fl (80.0-96.0); PLATELET COUNT, AUTOMATED 383 10^3/uL (150-450); RED BLOOD COUNT 4.31 10^6/uL (4.00-5.40); RED CELL DISTRIBUTION WIDTH 13.2 % (11.5-14.5); WHITE BLOOD COUNT 14.2 10^3/uL (4.0-10.0)
[2017-12-28] MEDS: LEVOTHYROXINE 75MCG TABLET (0.075MG) PO (06:17)
[2017-12-28 06:26] LABS: ANION GAP 8 MEQ/L (8-16); BLOOD UREA NITROGEN 19 MG/DL (7-18); CALCIUM LEVEL 8.1 MG/DL (8.8-10.2); CARBON DIOXIDE LEVEL 25 MEQ/L (21-32); CHLORIDE LEVEL 98 MEQ/L (98-107); CREATININE FOR GFR 0.76 MG/DL (0.55-1.30); GLOMERULAR FILTRATION RATE > 60.0 (>39); GLUCOSE, FASTING 244 MG/DL (70-100); POTASSIUM SERUM 4.6 MEQ/L (3.5-5.1); SODIUM LEVEL 131 MEQ/L (136-145)
[2017-12-28] MEDS: PERCOCET 5MG/325MG TAB PO ×3 (06:35→22:23)
[2017-12-28] MEDS: IPRATROPIUM 0.5MG/ALBUTEROL 2.5MG INH SOL UD 3ML (DUONEB)(J7620) NEB ×4 (08:00→20:41)
[2017-12-28] MEDS: MIRALAX *UNIT DOSE* 17GM PACKET PO ×2 (08:16→21:00)
[2017-12-28] MEDS: HumaLOG INSULIN (NovoLOG) PER UNIT SC ×4 (08:16→22:25)
[2017-12-28] MEDS: DOCUSATE SODIUM 100 MG CAP PO ×2 (08:16→22:22)
[2017-12-28] MEDS: VITAMIN D 1,000 INTERNATIONAL UNITS TABLET PO (08:16)
[2017-12-28] MEDS: SENNA 8.6 MG TAB (SENOKOT) PO (08:17)
[2017-12-28] MEDS: ENOXAPARIN 30 MG/0.3 ML SYR (J1650) SC (08:17)
[2017-12-28] MEDS: TIOTROPIUM INHALER/CAPSULE (SPIRIVA) INH (10:02)
[2017-12-28] MEDS: ADVAIR HFA 230/21MCG INHALER INH ×2 (10:02→20:44)
[2017-12-28 11:36] LABS: BEDSIDE GLUCOSE 368 MG/DL (83-110)
[2017-12-28] MEDS: DOXYCYCLINE HYCLATE 100 MG in D5W MINI-BAG PLUS 100 ML IV ×2 (11:50→22:26)
[2017-12-28] MEDS: methylPREDNISolone INJ 40 MG/1 ML VIAL (J2920) IV ×2 (11:51→22:22)
[2017-12-28] MEDS: FAMOTIDINE 20 MG TAB PO (14:40)
[2017-12-28 17:12] LABS: BEDSIDE GLUCOSE 286 MG/DL (83-110)
[2017-12-28 20:53] LABS: BEDSIDE GLUCOSE 431 MG/DL (83-110)
[2017-12-28] MEDS: EZETIMIBE 10 MG TAB (ZETIA) PO (22:22)
[2017-12-28] MEDS: KETOROLAC 30 MG/ML VIAL (J1885) IV (22:22)
[2017-12-28] MEDS: THEOPHYLLINE (THEO-24) 100MG SR **CAPSULE PO (22:23)
[2017-12-28] MEDS: SIMVASTATIN 40 MG TAB PO (22:24)
[2017-12-28] MEDS: raNITIdine SYRUP 150 MG/10 ML UDC PO (22:24)
[2017-12-28] MEDS: LOSARTAN 50 MG TAB PO (22:24)
[2017-12-29 06:07] LABS: HEMOGLOBIN 11.1 g/dl (12.0-16.0); MEAN CORPUSCULAR HEMOGLOBIN 26.3 pg (27.0-33.0); MEAN CORPUSCULAR HGB CONC 33.6 g/dl (32.0-36.5); MEAN CORPUSCULAR VOLUME 78.2 fl (80.0-96.0); PLATELET COUNT, AUTOMATED 375 10^3/uL (150-450); RED BLOOD COUNT 4.22 10^6/uL (4.00-5.40); RED CELL DISTRIBUTION WIDTH 13.2 % (11.5-14.5); WHITE BLOOD COUNT 11.7 10^3/uL (4.0-10.0)
[2017-12-29] MEDS: PHENAZOPYRIDINE 100 MG TAB PO ×3 (06:16→21:05)
[2017-12-29] MEDS: LEVOTHYROXINE 75MCG TABLET (0.075MG) PO (06:16)
[2017-12-29 06:27] LABS: ANION GAP 8 MEQ/L (8-16); BLOOD UREA NITROGEN 23 MG/DL (7-18); CARBON DIOXIDE LEVEL 25 MEQ/L (21-32); CHLORIDE LEVEL 96 MEQ/L (98-107); CREATININE FOR GFR 1.03 MG/DL (0.55-1.30); GLOMERULAR FILTRATION RATE 55.6 (>39); GLUCOSE, FASTING 302 MG/DL (70-100); POTASSIUM SERUM 4.6 MEQ/L (3.5-5.1); SODIUM LEVEL 129 MEQ/L (136-145)
[2017-12-29] MEDS: HumaLOG INSULIN (NovoLOG) PER UNIT SC ×4 (07:46→21:06)
[2017-12-29] MEDS: LEVEMIR (INSULIN DETEMIR) 1 UNITS/0.01ML SC ×2 (07:47→21:00)
[2017-12-29] MEDS: IPRATROPIUM 0.5MG/ALBUTEROL 2.5MG INH SOL UD 3ML (DUONEB)(J7620) NEB ×3 (07:54→22:11)
[2017-12-29] MEDS: TIOTROPIUM INHALER/CAPSULE (SPIRIVA) INH (07:54)
[2017-12-29] MEDS: ADVAIR HFA 230/21MCG INHALER INH ×2 (07:54→22:09)
[2017-12-29] MEDS ORDERED: CEPACOL LOZENGE PO (09:30)
[2017-12-29] MEDS: VITAMIN D 1,000 INTERNATIONAL UNITS TABLET PO (09:38)
[2017-12-29] MEDS: SENNA 8.6 MG TAB (SENOKOT) PO (09:38)
[2017-12-29] MEDS: MIRALAX *UNIT DOSE* 17GM PACKET PO ×2 (09:38→21:05)
[2017-12-29] MEDS: DOCUSATE SODIUM 100 MG CAP PO ×2 (09:38→21:00)
[2017-12-29] MEDS: ENOXAPARIN 30 MG/0.3 ML SYR (J1650) SC (09:38)
[2017-12-29] MEDS: raNITIdine SYRUP 150 MG/10 ML UDC PO ×2 (09:38→21:03)
[2017-12-29] MEDS: MOM 30ML SUSPENSION UDC PO (09:38)
[2017-12-29] MEDS: PERCOCET 5MG/325MG TAB PO ×2 (11:03→17:26)
[2017-12-29] MEDS: DOXYCYCLINE HYCLATE 100 MG TAB PO ×2 (11:03→21:05)
[2017-12-29 12:04] LABS: BEDSIDE GLUCOSE 284 MG/DL (83-110)
[2017-12-29] MEDS: methylPREDNISolone INJ 40 MG/1 ML VIAL (J2920) IV (12:19)
[2017-12-29 17:15] LABS: BEDSIDE GLUCOSE 269 MG/DL (83-110)
[2017-12-29 21:02] LABS: BEDSIDE GLUCOSE 390 MG/DL (83-110)
[2017-12-29] MEDS: LOSARTAN 50 MG TAB PO (21:04)
[2017-12-29] MEDS: EZETIMIBE 10 MG TAB (ZETIA) PO (21:04)
[2017-12-29] MEDS: THEOPHYLLINE (THEO-24) 100MG SR **CAPSULE PO (21:04)
[2017-12-29] MEDS: SIMVASTATIN 40 MG TAB PO (21:04)
[2017-12-29] MEDS: hydroCHLOROthiazide 12.5 MG CAPSULE PO (21:05)
[2017-12-29] MEDS: predniSONE 20 MG TAB PO (21:05)
[2017-12-30] MEDS: PERCOCET 5MG/325MG TAB PO (02:36)
[2017-12-30] MEDS: PHENAZOPYRIDINE 100 MG TAB PO (06:11)
[2017-12-30] MEDS: LEVOTHYROXINE 75MCG TABLET (0.075MG) PO (06:11)
[2017-12-30 06:17] LABS: HEMATOCRIT 35.8 % (36.0-47.0); HEMOGLOBIN 12.1 g/dl (12.0-16.0); MEAN CORPUSCULAR HEMOGLOBIN 26.2 pg (27.0-33.0); MEAN CORPUSCULAR HGB CONC 33.8 g/dl (32.0-36.5); MEAN CORPUSCULAR VOLUME 77.5 fl (80.0-96.0); PLATELET COUNT, AUTOMATED 421 10^3/uL (150-450); RED BLOOD COUNT 4.62 10^6/uL (4.00-5.40); RED CELL DISTRIBUTION WIDTH 13.4 % (11.5-14.5); WHITE BLOOD COUNT 11.1 10^3/uL (4.0-10.0)
[2017-12-30 06:41] LABS: ANION GAP 8 MEQ/L (8-16); BLOOD UREA NITROGEN 22 MG/DL (7-18); CALCIUM LEVEL 8.3 MG/DL (8.8-10.2); CARBON DIOXIDE LEVEL 27 MEQ/L (21-32); CHLORIDE LEVEL 94 MEQ/L (98-107); CREATININE FOR GFR 0.92 MG/DL (0.55-1.30); GLOMERULAR FILTRATION RATE > 60.0 (>39); GLUCOSE, FASTING 282 MG/DL (70-100); POTASSIUM SERUM 4.5 MEQ/L (3.5-5.1); SODIUM LEVEL 129 MEQ/L (136-145)
[2017-12-30] MEDS: TIOTROPIUM INHALER/CAPSULE (SPIRIVA) INH (07:48)
[2017-12-30] MEDS: ADVAIR HFA 230/21MCG INHALER INH (07:49)
[2017-12-30] MEDS: IPRATROPIUM 0.5MG/ALBUTEROL 2.5MG INH SOL UD 3ML (DUONEB)(J7620) NEB (07:49)
[2017-12-30] MEDS: raNITIdine SYRUP 150 MG/10 ML UDC PO (09:01)
[2017-12-30] MEDS: MIRALAX *UNIT DOSE* 17GM PACKET PO (09:01)
[2017-12-30] MEDS: ENOXAPARIN 30 MG/0.3 ML SYR (J1650) SC (09:01)
[2017-12-30] MEDS: DOCUSATE SODIUM 100 MG CAP PO (09:02)
[2017-12-30] MEDS: DOXYCYCLINE HYCLATE 100 MG TAB PO (09:02)
[2017-12-30] MEDS: VITAMIN D 1,000 INTERNATIONAL UNITS TABLET PO (09:02)
[2017-12-30] MEDS: predniSONE 20 MG TAB PO (09:02)
[2017-12-30] MEDS: hydroCHLOROthiazide 12.5 MG CAPSULE PO (09:02)
[2017-12-30] MEDS: SENNA 8.6 MG TAB (SENOKOT) PO (09:02)
[2017-12-30] MEDS: HumaLOG INSULIN (NovoLOG) PER UNIT SC (09:03)
[2017-12-30 10:55] LABS: BEDSIDE GLUCOSE 309 MG/DL (83-110)
== END 2017-12-30 11:30 | disposition home health service (06) | DRG 189 ==
LOC: M ED 11:38 → M ED INP 14:16 → M MSPAV 17:10
DX: J96.21 Acute and chronic respiratory failure with hypoxia (principal); E87.2 Acidosis; J44.1 Chronic obstructive pulmonary disease with (acute) exacerbation; Z66 Do not resuscitate; E11.9 Type 2 diabetes mellitus without complications; I10 Essential (primary) hypertension; R91.8 Other nonspecific abnormal finding of lung field; F17.210 Nicotine dependence, cigarettes, uncomplicated; E78.5 Hyperlipidemia, unspecified; E89.0 Postprocedural hypothyroidism; Z98.41 Cataract extraction status, right eye; Z98.42 Cataract extraction status, left eye; Z79.84 Long term (current) use of oral hypoglycemic drugs; Z79.899 Other long term (current) drug therapy; Z88.0 Allergy status to penicillin; Z88.2 Allergy status to sulfonamides; Z88.5 Allergy status to narcotic agent; Z99.81 Dependence on supplemental oxygen

== ENCOUNTER 2018-01-01 13:24 | Inpatient (IN) | payer MEDICARE, OTHER ==
[2018-01-01] MEDS: VANCOMYCIN HCL 1,000 MG, VIAL MATE ADAPTER 1 EACH in D5W 250 ML IV ×2 (08:00→20:36)
[2018-01-01] MEDS: NICOTINE 14 MG/24 HR TRANSDERMAL TD (09:00)
[2018-01-01] MEDS: IPRATROPIUM 0.5MG/ALBUTEROL 2.5MG INH SOL UD 3ML (DUONEB)(J7620) NEB ×2 (14:41→21:04)
[2018-01-01] MEDS: ALBUTEROL SULFATE 2.5 MG/0.5 ML INH NEB SOLN INH (14:41)
[2018-01-01] MEDS: methylPREDNISolone INJ 125 MG/2 ML VIAL (J2930) IV ×2 (14:58→22:02)
[2018-01-01 14:59] LABS: BASO # 0.1 10^3/uL (0.0-0.2); BASO % 0.4 % (0.0-1.0); EOS % 0.1 % (0.0-3.0); HEMATOCRIT 44.1 % (36.0-47.0); HEMOGLOBIN 14.6 g/dl (12.0-16.0); IMMATURE GRANULOCYTE # 0.3 10^3/uL (0-0); IMMATURE GRANULOCYTE % 1.8 % (0-0); LYMPH # 1.6 10^3/uL (1.5-4.5); LYMPH % 9.4 % (24.0-44.0); MEAN CORPUSCULAR HEMOGLOBIN 26.4 pg (27.0-33.0); MEAN CORPUSCULAR HGB CONC 33.1 g/dl (32.0-36.5); MEAN CORPUSCULAR VOLUME 79.6 fl (80.0-96.0); MONO # 0.8 10^3/uL (0.0-0.8); MONO % 4.6 % (0.0-5.0); NEUTROPHILS # 14.3 10^3/uL (1.8-7.7); NEUTROPHILS % 83.7 % (36.0-66.0); PLATELET COUNT, AUTOMATED 539 10^3/uL (150-450); RED BLOOD COUNT 5.54 10^6/uL (4.00-5.40); RED CELL DISTRIBUTION WIDTH 13.8 % (11.5-14.5)
[2018-01-01] MEDS: NS 1,000 ML IV (15:06)
[2018-01-01 15:08] LABS: ABG BASE EXCESS -0.1 (-2.0-2.0); ABG HCO3 23.6 MEQ/L (22.0-26.0); ABG O2 SATURATION 92.1 % (95.0-99.0); ABG STANDARD HCO3 24.3 MEQ/L (22.0-26.0); ABG TOTAL CO2 24.7 MEQ/L (23.0-31.0); ABG pH (ARTERIAL) 7.435 UNITS (7.350-7.450)
[2018-01-01 15:12] LABS: INR 0.94; PROTHROMBIN TIME 12.6 SECONDS (12.4-14.5)
[2018-01-01 15:13] LABS: PARTIAL THROMBOPLASTIN TIME 26.9 SECONDS (26.8-37.9)
[2018-01-01 15:17] LABS: NT-PRO BNP 517 PG/ML (<450)
[2018-01-01 15:17] LABS: ALBUMIN 3.4 GM/DL (3.2-5.2); ALKALINE PHOSPHATASE 47 U/L (45-117); ALT/SGPT 19 U/L (12-78); ANION GAP 10 MEQ/L (8-16); AST/SGOT 9 U/L (7-37); BILIRUBIN,DIRECT < 0.1 MG/DL (0.0-0.2); BILIRUBIN,TOTAL 0.3 MG/DL (0.2-1.0); BLOOD UREA NITROGEN 23 MG/DL (7-18); CALCIUM LEVEL 8.7 MG/DL (8.8-10.2); CARBON DIOXIDE LEVEL 25 MEQ/L (21-32); CHLORIDE LEVEL 96 MEQ/L (98-107); CPK CREATINE PHOSPHOKINASE 44 U/L (26-192); CREATININE FOR GFR 1.28 MG/DL (0.55-1.30); FREE T4 1.37 NG/DL (0.76-1.46); GLOMERULAR FILTRATION RATE 43.3 (>39); LIPASE 138 U/L (73-393); POTASSIUM SERUM 4.5 MEQ/L (3.5-5.1); SODIUM LEVEL 131 MEQ/L (136-145); TOTAL PROTEIN 6.8 GM/DL (6.4-8.2); TROPONIN I < 0.02 NG/ML (< 0.10)
[2018-01-01 15:22] LABS: CK-MB VALUE MASS 1.8 NG/ML (0.0-3.6); MB/CK RELATIVE INDEX 4.09 (< OR =4)
[2018-01-01 15:29] LABS: GLUCOSE, FASTING 420 MG/DL (70-100)
[2018-01-01 16:12] LABS: INFLUENZA A AMPLIFICATION NEGATIVE (NEGATIVE); INFLUENZA B AMPLIFICATION NEGATIVE (NEGATIVE)
[2018-01-01] MEDS ORDERED: ONDANSETRON 4MG/2ML VIAL (J2405) IV (16:15)
[2018-01-01] MEDS ORDERED: IPRATROPIUM 0.5MG/ALBUTEROL 2.5MG INH SOL UD 3ML (DUONEB)(J7620) NEB (16:15)
[2018-01-01 16:20] LABS: KETONE, URINE AUTO RFX NEGATIVE (NEGATIVE); LEUKOCYTE ESTERASE UR AUTO RFX NEGATIVE (NEGATIVE); MUCUS, URINE RFX SMALL (NEGATIVE); NITRITE, URINE AUTO RFX NEGATIVE (NEGATIVE); RBC, URINE AUTO RFX 4 /HPF (0-3); SPECIFIC GRAVITY UR AUTO RFX 1.014 (1.002-1.035); SQUAM EPITHELIAL CELL UR AURFX 0 /HPF (0-6); WBC, URINE AUTO RFX 1 /HPF (0-3)
[2018-01-01] MEDS ORDERED: GLUCOSE 4 GM CHEW TABLET PO (16:45)
[2018-01-01] MEDS ORDERED: CEPACOL LOZENGE MT (16:45)
[2018-01-01] MEDS ORDERED: DEXTROSE 50% 50 ML SYRINGE IV (16:45)
[2018-01-01] MEDS ORDERED: GLUCAGON FOR INJ 1 MG VIAL (J1610) SC (16:45)
[2018-01-01 16:53] LABS: LACTIC ACID SEPSIS PROTOCOL 5.3 MMOL/L (0.4-2.0)
[2018-01-01] MEDS: PANTOPRAZOLE 40MG TAB (PROTONIX) PO (16:57)
[2018-01-01] MEDS: MOXIFLOXACIN HCL 400 MG in APPROPRIATE DILUENT 1 EA IV (16:58)
[2018-01-01] MEDS: HumaLOG INSULIN (NovoLOG) PER UNIT SC ×3 (16:58→22:02)
[2018-01-01] MEDS ORDERED: NS 1,000 ML IV (17:00)
[2018-01-01 18:08] LABS: BEDSIDE GLUCOSE 344 MG/DL (83-110)
[2018-01-01] MEDS: SIMVASTATIN 40 MG TAB PO (20:32)
[2018-01-01] MEDS: PERCOCET 5MG/325MG TAB PO (20:32)
[2018-01-01] MEDS: guaiFENesin ER 600 MG TAB PO (20:32)
[2018-01-01] MEDS: EZETIMIBE 10 MG TAB (ZETIA) PO (20:35)
[2018-01-01] MEDS: DOCUSATE SODIUM 100 MG CAP PO (20:35)
[2018-01-01] MEDS: LOSARTAN 50 MG TAB PO (20:35)
[2018-01-01] MEDS: HEPARIN SOD (PORCINE) 5000 UNITS/ML VIAL SC (20:36)
[2018-01-01] MEDS: ADVAIR HFA 230/21MCG INHALER INH (21:00)
[2018-01-01] MEDS ORDERED: VANCOMYCIN HCL 750 MG, VIAL MATE ADAPTER 1 EACH in D5W 250 ML IV (21:20)
[2018-01-01 21:26] LABS: BEDSIDE GLUCOSE 346 MG/DL (83-110)
[2018-01-01] MEDS: THEOPHYLLINE (THEO-24) 100MG SR **CAPSULE PO (22:03)
[2018-01-02] MEDS: IPRATROPIUM 0.5MG/ALBUTEROL 2.5MG INH SOL UD 3ML (DUONEB)(J7620) NEB ×4 (01:45→20:00)
[2018-01-02 05:18] LABS: BASO # 0.1 10^3/uL (0.0-0.2); BASO % 0.3 % (0.0-1.0); HEMOGLOBIN 13.5 g/dl (12.0-16.0); IMMATURE GRANULOCYTE # 0.3 10^3/uL (0-0); IMMATURE GRANULOCYTE % 1.7 % (0-0); LYMPH # 1.5 10^3/uL (1.5-4.5); LYMPH % 10.4 % (24.0-44.0); MEAN CORPUSCULAR HEMOGLOBIN 26.6 pg (27.0-33.0); MEAN CORPUSCULAR HGB CONC 33.8 g/dl (32.0-36.5); MEAN CORPUSCULAR VOLUME 78.9 fl (80.0-96.0); MONO # 0.4 10^3/uL (0.0-0.8); MONO % 2.8 % (0.0-5.0); NEUTROPHILS # 12.4 10^3/uL (1.8-7.7); NEUTROPHILS % 84.8 % (36.0-66.0); PLATELET COUNT, AUTOMATED 452 10^3/uL (150-450); RED BLOOD COUNT 5.07 10^6/uL (4.00-5.40); RED CELL DISTRIBUTION WIDTH 13.8 % (11.5-14.5); WHITE BLOOD COUNT 14.7 10^3/uL (4.0-10.0)
[2018-01-02 05:35] LABS: ANION GAP 8 MEQ/L (8-16); BLOOD UREA NITROGEN 28 MG/DL (7-18); CALCIUM LEVEL 8.7 MG/DL (8.8-10.2); CARBON DIOXIDE LEVEL 29 MEQ/L (21-32); CHLORIDE LEVEL 96 MEQ/L (98-107); CREATININE FOR GFR 0.93 MG/DL (0.55-1.30); GLOMERULAR FILTRATION RATE > 60.0 (>39); GLUCOSE, FASTING 318 MG/DL (70-100); POTASSIUM SERUM 4.3 MEQ/L (3.5-5.1); SODIUM LEVEL 133 MEQ/L (136-145)
[2018-01-02] MEDS: methylPREDNISolone INJ 125 MG/2 ML VIAL (J2930) IV ×3 (06:28→23:27)
[2018-01-02] MEDS: HEPARIN SOD (PORCINE) 5000 UNITS/ML VIAL SC ×3 (06:28→21:50)
[2018-01-02] MEDS: LEVOTHYROXINE 75MCG TABLET (0.075MG) PO (06:28)
[2018-01-02] MEDS: TIOTROPIUM INHALER/CAPSULE (SPIRIVA) INH (07:28)
[2018-01-02] MEDS: ADVAIR HFA 230/21MCG INHALER INH ×2 (07:29→21:19)
[2018-01-02] MEDS: NICOTINE 14 MG/24 HR TRANSDERMAL TD (09:00)
[2018-01-02] MEDS: VITAMIN D 1,000 INTERNATIONAL UNITS TABLET PO (09:02)
[2018-01-02] MEDS: guaiFENesin ER 600 MG TAB PO ×2 (09:03→20:21)
[2018-01-02] MEDS: hydroCHLOROthiazide 12.5 MG CAPSULE PO (09:03)
[2018-01-02] MEDS: DOCUSATE SODIUM 100 MG CAP PO ×2 (09:03→20:21)
[2018-01-02] MEDS: VANCOMYCIN HCL 750 MG, VIAL MATE ADAPTER 1 EACH in D5W 250 ML IV ×2 (09:03→21:51)
[2018-01-02] MEDS: PANTOPRAZOLE 40MG TAB (PROTONIX) PO (09:04)
[2018-01-02] MEDS: HumaLOG INSULIN (NovoLOG) PER UNIT SC ×4 (09:04→21:51)
[2018-01-02] MEDS: PERCOCET 5MG/325MG TAB PO ×2 (10:19→20:21)
[2018-01-02 11:44] LABS: BEDSIDE GLUCOSE 410 MG/DL (83-110)
[2018-01-02 16:46] LABS: BEDSIDE GLUCOSE 262 MG/DL (83-110)
[2018-01-02] MEDS: MOXIFLOXACIN HCL 400 MG in APPROPRIATE DILUENT 1 EA IV (17:34)
[2018-01-02] MEDS: SIMVASTATIN 40 MG TAB PO (20:20)
[2018-01-02] MEDS: EZETIMIBE 10 MG TAB (ZETIA) PO (20:21)
[2018-01-02] MEDS: LOSARTAN 50 MG TAB PO (20:25)
[2018-01-02] MEDS: THEOPHYLLINE (THEO-24) 100MG SR **CAPSULE PO (21:50)
[2018-01-03] MEDS: IPRATROPIUM 0.5MG/ALBUTEROL 2.5MG INH SOL UD 3ML (DUONEB)(J7620) NEB ×5 (01:28→23:46)
[2018-01-03] MEDS: HEPARIN SOD (PORCINE) 5000 UNITS/ML VIAL SC ×3 (05:49→22:28)
[2018-01-03] MEDS: LEVOTHYROXINE 75MCG TABLET (0.075MG) PO (05:49)
[2018-01-03] MEDS: PERCOCET 5MG/325MG TAB PO ×2 (05:50→16:08)
[2018-01-03] MEDS: methylPREDNISolone INJ 125 MG/2 ML VIAL (J2930) IV ×3 (06:29→22:28)
[2018-01-03 06:57] LABS: BEDSIDE GLUCOSE 365 MG/DL (83-110)
[2018-01-03 06:57] LABS: BEDSIDE GLUCOSE 344 MG/DL (83-110)
[2018-01-03 08:04] LABS: BASO % 0.2 % (0.0-1.0); HEMATOCRIT 37.8 % (36.0-47.0); HEMOGLOBIN 12.6 g/dl (12.0-16.0); IMMATURE GRANULOCYTE # 0.3 10^3/uL (0-0); IMMATURE GRANULOCYTE % 1.3 % (0-0); LYMPH # 1.4 10^3/uL (1.5-4.5); LYMPH % 7.1 % (24.0-44.0); MEAN CORPUSCULAR HEMOGLOBIN 26.1 pg (27.0-33.0); MEAN CORPUSCULAR HGB CONC 33.3 g/dl (32.0-36.5); MEAN CORPUSCULAR VOLUME 78.3 fl (80.0-96.0); MONO % 5.1 % (0.0-5.0); NEUTROPHILS % 86.3 % (36.0-66.0); PLATELET COUNT, AUTOMATED 484 10^3/uL (150-450); RED BLOOD COUNT 4.83 10^6/uL (4.00-5.40); RED CELL DISTRIBUTION WIDTH 13.7 % (11.5-14.5); WHITE BLOOD COUNT 19.7 10^3/uL (4.0-10.0)
[2018-01-03] MEDS: ADVAIR HFA 230/21MCG INHALER INH ×2 (08:25→22:01)
[2018-01-03] MEDS: TIOTROPIUM INHALER/CAPSULE (SPIRIVA) INH (08:25)
[2018-01-03] MEDS: HumaLOG INSULIN (NovoLOG) PER UNIT SC ×4 (08:29→20:26)
[2018-01-03] MEDS: guaiFENesin ER 600 MG TAB PO ×2 (08:30→20:24)
[2018-01-03] MEDS: VITAMIN D 1,000 INTERNATIONAL UNITS TABLET PO (08:30)
[2018-01-03] MEDS: NICOTINE 14 MG/24 HR TRANSDERMAL TD ×2 (08:30→08:31)
[2018-01-03] MEDS: PANTOPRAZOLE 40MG TAB (PROTONIX) PO (08:30)
[2018-01-03] MEDS: DOCUSATE SODIUM 100 MG CAP PO ×2 (08:30→20:26)
[2018-01-03] MEDS: hydroCHLOROthiazide 12.5 MG CAPSULE PO (08:30)
[2018-01-03 08:41] LABS: VANCOMYCIN LEVEL TROUGH 11.3 UG/ML (10.0-20.0)
[2018-01-03 08:41] LABS: ANION GAP 9 MEQ/L (8-16); BLOOD UREA NITROGEN 31 MG/DL (7-18); CALCIUM LEVEL 8.3 MG/DL (8.8-10.2); CARBON DIOXIDE LEVEL 26 MEQ/L (21-32); CHLORIDE LEVEL 95 MEQ/L (98-107); CREATININE FOR GFR 1.14 MG/DL (0.55-1.30); GLOMERULAR FILTRATION RATE 49.5 (>39); POTASSIUM SERUM 4.7 MEQ/L (3.5-5.1); SODIUM LEVEL 130 MEQ/L (136-145)
[2018-01-03 09:06] LABS: GLUCOSE, FASTING 433 MG/DL (70-100)
[2018-01-03 09:12] LABS: ESTIMATED AVERAGE GLUCOSE 183 MG/DL (60-110)
[2018-01-03] MEDS: VANCOMYCIN HCL 750 MG, VIAL MATE ADAPTER 1 EACH in D5W 250 ML IV ×2 (09:40→20:37)
[2018-01-03 11:56] LABS: BEDSIDE GLUCOSE 409 MG/DL (83-110)
[2018-01-03 16:40] LABS: BEDSIDE GLUCOSE 298 MG/DL (83-110)
[2018-01-03] MEDS: MOXIFLOXACIN HCL 400 MG in APPROPRIATE DILUENT 1 EA IV (17:19)
[2018-01-03] MEDS: LOSARTAN 50 MG TAB PO (20:25)
[2018-01-03] MEDS: SIMVASTATIN 40 MG TAB PO (20:26)
[2018-01-03] MEDS: EZETIMIBE 10 MG TAB (ZETIA) PO (20:26)
[2018-01-03] MEDS: LEVEMIR (INSULIN DETEMIR) 1 UNITS/0.01ML SC (20:28)
[2018-01-03] MEDS: THEOPHYLLINE (THEO-24) 100MG SR **CAPSULE PO (20:38)
[2018-01-04] MEDS: PERCOCET 5MG/325MG TAB PO ×3 (03:39→21:34)
[2018-01-04] MEDS: methylPREDNISolone INJ 125 MG/2 ML VIAL (J2930) IV (06:18)
[2018-01-04] MEDS: LEVOTHYROXINE 75MCG TABLET (0.075MG) PO (06:18)
[2018-01-04] MEDS: HEPARIN SOD (PORCINE) 5000 UNITS/ML VIAL SC ×3 (06:18→21:34)
[2018-01-04 06:27] LABS: BASO # 0.1 10^3/uL (0.0-0.2); BASO % 0.3 % (0.0-1.0); EOS % 0.1 % (0.0-3.0); HEMATOCRIT 36.5 % (36.0-47.0); HEMOGLOBIN 12.3 g/dl (12.0-16.0); IMMATURE GRANULOCYTE # 0.4 10^3/uL (0-0); LYMPH % 10.2 % (24.0-44.0); MEAN CORPUSCULAR HEMOGLOBIN 26.3 pg (27.0-33.0); MEAN CORPUSCULAR HGB CONC 33.7 g/dl (32.0-36.5); MONO # 1.8 10^3/uL (0.0-0.8); MONO % 9.1 % (0.0-5.0); NEUTROPHILS # 15.2 10^3/uL (1.8-7.7); NEUTROPHILS % 78.3 % (36.0-66.0); PLATELET COUNT, AUTOMATED 427 10^3/uL (150-450); RED BLOOD COUNT 4.68 10^6/uL (4.00-5.40); RED CELL DISTRIBUTION WIDTH 13.6 % (11.5-14.5); WHITE BLOOD COUNT 19.4 10^3/uL (4.0-10.0)
[2018-01-04 06:47] LABS: ANION GAP 7 MEQ/L (8-16); BLOOD UREA NITROGEN 28 MG/DL (7-18); CARBON DIOXIDE LEVEL 28 MEQ/L (21-32); CHLORIDE LEVEL 96 MEQ/L (98-107); CREATININE FOR GFR 0.94 MG/DL (0.55-1.30); GLOMERULAR FILTRATION RATE > 60.0 (>39); GLUCOSE, FASTING 291 MG/DL (70-100); POTASSIUM SERUM 4.2 MEQ/L (3.5-5.1); SODIUM LEVEL 131 MEQ/L (136-145); VANCOMYCIN LEVEL TROUGH 15.1 UG/ML (10.0-20.0)
[2018-01-04] MEDS: VANCOMYCIN HCL 750 MG, VIAL MATE ADAPTER 1 EACH in D5W 250 ML IV ×2 (08:00→21:31)
[2018-01-04] MEDS: IPRATROPIUM 0.5MG/ALBUTEROL 2.5MG INH SOL UD 3ML (DUONEB)(J7620) NEB ×3 (08:00→21:10)
[2018-01-04 08:32] LABS: C REACTIVE PROTEIN QUANTITATIV < 0.30 MG/DL (0.00-0.30)
[2018-01-04] MEDS: LEVEMIR (INSULIN DETEMIR) 1 UNITS/0.01ML SC ×2 (08:34→21:32)
[2018-01-04] MEDS: VITAMIN D 1,000 INTERNATIONAL UNITS TABLET PO (08:34)
[2018-01-04] MEDS: HumaLOG INSULIN (NovoLOG) PER UNIT SC ×4 (08:34→21:33)
[2018-01-04] MEDS: DOCUSATE SODIUM 100 MG CAP PO ×2 (08:35→21:31)
[2018-01-04] MEDS: guaiFENesin ER 600 MG TAB PO ×2 (08:35→21:31)
[2018-01-04] MEDS: PANTOPRAZOLE 40MG TAB (PROTONIX) PO (08:35)
[2018-01-04] MEDS: ADVAIR HFA 230/21MCG INHALER INH ×2 (08:56→21:00)
[2018-01-04] MEDS: TIOTROPIUM INHALER/CAPSULE (SPIRIVA) INH (08:56)
[2018-01-04] MEDS: NICOTINE 14 MG/24 HR TRANSDERMAL TD (08:57)
[2018-01-04] MEDS: predniSONE 20 MG TAB PO (11:48)
[2018-01-04] MEDS: MOXIFLOXACIN HCL 400 MG in APPROPRIATE DILUENT 1 EA IV (18:29)
[2018-01-04 21:30] LABS: BEDSIDE GLUCOSE 219 MG/DL (83-110)
[2018-01-04 21:30] LABS: BEDSIDE GLUCOSE 472 MG/DL (83-110)
[2018-01-04 21:30] LABS: BEDSIDE GLUCOSE 338 MG/DL (83-110)
[2018-01-04 21:31] LABS: BEDSIDE GLUCOSE 329 MG/DL (83-110)
[2018-01-04] MEDS: SIMVASTATIN 40 MG TAB PO (21:31)
[2018-01-04] MEDS: EZETIMIBE 10 MG TAB (ZETIA) PO (21:31)
[2018-01-04] MEDS: THEOPHYLLINE (THEO-24) 100MG SR **CAPSULE PO (21:31)
[2018-01-04] MEDS: LOSARTAN 50 MG TAB PO (21:32)
[2018-01-05] MEDS: IPRATROPIUM 0.5MG/ALBUTEROL 2.5MG INH SOL UD 3ML (DUONEB)(J7620) NEB ×4 (01:07→20:00)
[2018-01-05] MEDS: HEPARIN SOD (PORCINE) 5000 UNITS/ML VIAL SC ×3 (05:47→22:03)
[2018-01-05] MEDS: LEVOTHYROXINE 75MCG TABLET (0.075MG) PO (05:47)
[2018-01-05] MEDS: ACETAMINOPHEN TAB 650MG DOSE (2X325MG) PO (05:47)
[2018-01-05 06:19] LABS: BASO % 0.2 % (0.0-1.0); EOS # 0.1 10^3/uL (0.0-0.50); EOS % 0.4 % (0.0-3.0); HEMATOCRIT 36.5 % (36.0-47.0); HEMOGLOBIN 12.2 g/dl (12.0-16.0); IMMATURE GRANULOCYTE # 0.5 10^3/uL (0-0); IMMATURE GRANULOCYTE % 2.9 % (0-0); LYMPH # 4.1 10^3/uL (1.5-4.5); LYMPH % 24.2 % (24.0-44.0); MEAN CORPUSCULAR HEMOGLOBIN 25.9 pg (27.0-33.0); MEAN CORPUSCULAR HGB CONC 33.4 g/dl (32.0-36.5); MEAN CORPUSCULAR VOLUME 77.5 fl (80.0-96.0); MONO % 12.5 % (0.0-5.0); NEUTROPHILS % 59.8 % (36.0-66.0); PLATELET COUNT, AUTOMATED 419 10^3/uL (150-450); RED BLOOD COUNT 4.71 10^6/uL (4.00-5.40); RED CELL DISTRIBUTION WIDTH 13.3 % (11.5-14.5); WHITE BLOOD COUNT 16.8 10^3/uL (4.0-10.0)
[2018-01-05 06:40] LABS: ANION GAP 6 MEQ/L (8-16); BLOOD UREA NITROGEN 23 MG/DL (7-18); C REACTIVE PROTEIN QUANTITATIV < 0.30 MG/DL (0.00-0.30); CALCIUM LEVEL 8.2 MG/DL (8.8-10.2); CARBON DIOXIDE LEVEL 31 MEQ/L (21-32); CHLORIDE LEVEL 100 MEQ/L (98-107); CREATININE FOR GFR 0.86 MG/DL (0.55-1.30); GLOMERULAR FILTRATION RATE > 60.0 (>39); GLUCOSE, FASTING 119 MG/DL (70-100); POTASSIUM SERUM 3.6 MEQ/L (3.5-5.1); SODIUM LEVEL 137 MEQ/L (136-145)
[2018-01-05 06:59] LABS: MONO # 2.1 10^3/uL (0.0-0.8); POSITIVE DIFF POS FLAG
[2018-01-05] MEDS: NICOTINE 14 MG/24 HR TRANSDERMAL TD (07:47)
[2018-01-05] MEDS: guaiFENesin ER 600 MG TAB PO ×2 (08:29→20:06)
[2018-01-05] MEDS: DOCUSATE SODIUM 100 MG CAP PO ×2 (08:29→20:06)
[2018-01-05] MEDS: predniSONE 20 MG TAB PO (08:29)
[2018-01-05] MEDS: PANTOPRAZOLE 40MG TAB (PROTONIX) PO (08:29)
[2018-01-05] MEDS: HumaLOG INSULIN (NovoLOG) PER UNIT SC ×4 (08:29→22:04)
[2018-01-05] MEDS: VITAMIN D 1,000 INTERNATIONAL UNITS TABLET PO (08:29)
[2018-01-05] MEDS: LEVEMIR (INSULIN DETEMIR) 1 UNITS/0.01ML SC ×2 (08:30→22:04)
[2018-01-05] MEDS: TIOTROPIUM INHALER/CAPSULE (SPIRIVA) INH (11:06)
[2018-01-05] MEDS: ADVAIR HFA 230/21MCG INHALER INH ×2 (11:07→19:33)
[2018-01-05] MEDS: MIRALAX *UNIT DOSE* 17GM PACKET PO ×2 (13:55→21:00)
[2018-01-05] MEDS: MOM 30ML SUSPENSION UDC PO (13:55)
[2018-01-05] MEDS: CARBAMIDE PEROXIDE 6.5% OTIC SOLN 15ML AU ×2 (17:28→22:05)
[2018-01-05] MEDS: MOXIFLOXACIN HCL 400 MG in APPROPRIATE DILUENT 1 EA IV (17:28)
[2018-01-05] MEDS: EZETIMIBE 10 MG TAB (ZETIA) PO (20:06)
[2018-01-05] MEDS: SIMVASTATIN 40 MG TAB PO (20:06)
[2018-01-05] MEDS: PERCOCET 5MG/325MG TAB PO (20:07)
[2018-01-05] MEDS: THEOPHYLLINE (THEO-24) 100MG SR **CAPSULE PO (22:03)
[2018-01-05] MEDS: LOSARTAN 50 MG TAB PO (22:03)
[2018-01-06] MEDS: IPRATROPIUM 0.5MG/ALBUTEROL 2.5MG INH SOL UD 3ML (DUONEB)(J7620) NEB ×6 (00:40→23:07)
[2018-01-06 05:22] LABS: BEDSIDE GLUCOSE 337 MG/DL (83-110)
[2018-01-06 05:22] LABS: BEDSIDE GLUCOSE 260 MG/DL (83-110)
[2018-01-06 05:22] LABS: BEDSIDE GLUCOSE 339 MG/DL (83-110)
[2018-01-06] MEDS: HEPARIN SOD (PORCINE) 5000 UNITS/ML VIAL SC ×3 (05:41→21:08)
[2018-01-06] MEDS: LEVOTHYROXINE 75MCG TABLET (0.075MG) PO (05:41)
[2018-01-06 06:23] LABS: HEMATOCRIT 37.9 % (36.0-47.0); HEMOGLOBIN 12.4 g/dl (12.0-16.0); MEAN CORPUSCULAR HEMOGLOBIN 25.7 pg (27.0-33.0); MEAN CORPUSCULAR HGB CONC 32.7 g/dl (32.0-36.5); MEAN CORPUSCULAR VOLUME 78.5 fl (80.0-96.0); PLATELET COUNT, AUTOMATED 421 10^3/uL (150-450); RED BLOOD COUNT 4.83 10^6/uL (4.00-5.40); RED CELL DISTRIBUTION WIDTH 13.8 % (11.5-14.5)
[2018-01-06 06:39] LABS: ANION GAP 8 MEQ/L (8-16); BLOOD UREA NITROGEN 19 MG/DL (7-18); C REACTIVE PROTEIN QUANTITATIV < 0.30 MG/DL (0.00-0.30); CALCIUM LEVEL 8.5 MG/DL (8.8-10.2); CARBON DIOXIDE LEVEL 29 MEQ/L (21-32); CHLORIDE LEVEL 103 MEQ/L (98-107); CREATININE FOR GFR 0.78 MG/DL (0.55-1.30); GLOMERULAR FILTRATION RATE > 60.0 (>39); GLUCOSE, FASTING 61 MG/DL (70-100); POTASSIUM SERUM 3.3 MEQ/L (3.5-5.1); SODIUM LEVEL 140 MEQ/L (136-145)
[2018-01-06 06:42] LABS: WHITE BLOOD COUNT 19.9 10^3/uL (4.0-10.0)
[2018-01-06 06:43] LABS: ADD MANUAL DIFFER YES; DIFF SLIDE NUMBER 29; POSITIVE DIFF POS FLAG
[2018-01-06 07:18] LABS: ATYPICAL LYMPH 8 % (0-5); EOSINOPHILS 2 % (0-5); LYMPHOCYTES 26 % (16-52); MONOCYTES 4 % (0-8); NEUTROPHILS 60 % (35-75)
[2018-01-06] MEDS: HumaLOG INSULIN (NovoLOG) PER UNIT SC ×4 (07:18→21:00)
[2018-01-06 07:20] LABS: MICROCYTOSIS 1+; PLATELET ESTIMATE NORMAL (NORMAL)
[2018-01-06] MEDS: TIOTROPIUM INHALER/CAPSULE (SPIRIVA) INH (08:23)
[2018-01-06] MEDS: ADVAIR HFA 230/21MCG INHALER INH ×2 (08:23→21:00)
[2018-01-06] MEDS: NICOTINE 14 MG/24 HR TRANSDERMAL TD (09:00)
[2018-01-06] MEDS: guaiFENesin ER 600 MG TAB PO ×2 (09:00→21:08)
[2018-01-06] MEDS: DOCUSATE SODIUM 100 MG CAP PO ×2 (09:00→21:08)
[2018-01-06] MEDS: LEVEMIR (INSULIN DETEMIR) 1 UNITS/0.01ML SC ×4 (09:00→22:11)
[2018-01-06] MEDS: MIRALAX *UNIT DOSE* 17GM PACKET PO ×2 (09:00→21:08)
[2018-01-06] MEDS: PANTOPRAZOLE 40MG TAB (PROTONIX) PO (09:59)
[2018-01-06] MEDS: VITAMIN D 1,000 INTERNATIONAL UNITS TABLET PO (09:59)
[2018-01-06] MEDS: POTASSIUM CHLORIDE 10 MEQ SR TABLET PO (10:00)
[2018-01-06] MEDS: predniSONE 20 MG TAB PO (10:00)
[2018-01-06] MEDS: PERCOCET 5MG/325MG TAB PO ×3 (10:00→21:11)
[2018-01-06] MEDS: CARBAMIDE PEROXIDE 6.5% OTIC SOLN 15ML AU ×3 (10:01→21:09)
[2018-01-06 10:39] LABS: ABG BASE EXCESS 2.3 (-2.0-2.0); ABG HCO3 26.5 MEQ/L (22.0-26.0); ABG O2 SATURATION 89.2 % (95.0-99.0); ABG PARTIAL PRESSURE CO2 39.3 mmHg (35.0-45.0); ABG PARTIAL PRESSURE O2 53.7 mmHg (75.0-100.0); ABG STANDARD HCO3 26.4 MEQ/L (22.0-26.0); ABG TOTAL CO2 27.7 MEQ/L (23.0-31.0); ABG pH (ARTERIAL) 7.446 UNITS (7.350-7.450)
[2018-01-06 12:02] LABS: BEDSIDE GLUCOSE 235 MG/DL (83-110)
[2018-01-06] MEDS ORDERED: ISOVUE-370 76% 100ML VIAL (Q9967) As Ordered (13:58)
[2018-01-06 16:10] LABS: BEDSIDE GLUCOSE 90 MG/DL (83-110)
[2018-01-06 17:20] LABS: BEDSIDE GLUCOSE 241 MG/DL (83-110)
[2018-01-06] MEDS: MOXIFLOXACIN 400 MG TAB PO (17:21)
[2018-01-06] MEDS: SIMVASTATIN 40 MG TAB PO (21:08)
[2018-01-06] MEDS: THEOPHYLLINE (THEO-24) 100MG SR **CAPSULE PO (21:08)
[2018-01-06] MEDS: EZETIMIBE 10 MG TAB (ZETIA) PO (21:08)
[2018-01-06] MEDS: LOSARTAN 50 MG TAB PO (22:11)
[2018-01-06 22:18] LABS: BEDSIDE GLUCOSE 135 MG/DL (83-110)
[2018-01-06] MEDS: SIMETHICONE 80 MG CHEW TAB PO (22:47)
[2018-01-07] MEDS: IPRATROPIUM 0.5MG/ALBUTEROL 2.5MG INH SOL UD 3ML (DUONEB)(J7620) NEB ×3 (04:00→11:29)
[2018-01-07] MEDS: LEVOTHYROXINE 75MCG TABLET (0.075MG) PO (05:47)
[2018-01-07] MEDS: MOXIFLOXACIN 400 MG TAB PO (05:47)
[2018-01-07] MEDS: HEPARIN SOD (PORCINE) 5000 UNITS/ML VIAL SC ×3 (05:47→20:53)
[2018-01-07 05:53] LABS: BASO # 0.1 10^3/uL (0.0-0.2); BASO % 0.3 % (0.0-1.0); EOS # 0.3 10^3/uL (0.0-0.50); EOS % 1.5 % (0.0-3.0); HEMATOCRIT 35.9 % (36.0-47.0); HEMOGLOBIN 11.7 g/dl (12.0-16.0); IMMATURE GRANULOCYTE % 2.6 % (0-3.0); LYMPH # 3.3 10^3/uL (1.5-4.5); LYMPH % 15.8 % (24.0-44.0); MEAN CORPUSCULAR HEMOGLOBIN 26.2 pg (27.0-33.0); MEAN CORPUSCULAR HGB CONC 32.6 g/dl (32.0-36.5); MEAN CORPUSCULAR VOLUME 80.3 fl (80.0-96.0); MONO % 9.2 % (0.0-5.0); NEUTROPHILS # 14.9 10^3/uL (1.8-7.7); NEUTROPHILS % 70.6 % (36.0-66.0); PLATELET COUNT, AUTOMATED 345 10^3/uL (150-450); RED BLOOD COUNT 4.47 10^6/uL (4.00-5.40); RED CELL DISTRIBUTION WIDTH 14.2 % (11.5-14.5); WHITE BLOOD COUNT 21.2 10^3/uL (4.0-10.0)
[2018-01-07 06:09] LABS: C REACTIVE PROTEIN QUANTITATIV 0.98 MG/DL (0.00-0.30)
[2018-01-07 06:09] LABS: ANION GAP 8 MEQ/L (8-16); BLOOD UREA NITROGEN 18 MG/DL (7-18); CALCIUM LEVEL 7.9 MG/DL (8.8-10.2); CARBON DIOXIDE LEVEL 26 MEQ/L (21-32); CHLORIDE LEVEL 104 MEQ/L (98-107); CREATININE FOR GFR 0.79 MG/DL (0.55-1.30); GLOMERULAR FILTRATION RATE > 60.0 (>39); GLUCOSE, FASTING 239 MG/DL (70-100); SODIUM LEVEL 138 MEQ/L (136-145)
[2018-01-07] MEDS: ADVAIR HFA 230/21MCG INHALER INH ×2 (08:13→20:24)
[2018-01-07] MEDS: TIOTROPIUM INHALER/CAPSULE (SPIRIVA) INH (08:13)
[2018-01-07] MEDS: NICOTINE 14 MG/24 HR TRANSDERMAL TD (08:16)
[2018-01-07] MEDS: guaiFENesin ER 600 MG TAB PO ×2 (08:18→20:54)
[2018-01-07] MEDS: predniSONE 20 MG TAB PO (08:18)
[2018-01-07] MEDS: PANTOPRAZOLE 40MG TAB (PROTONIX) PO (08:18)
[2018-01-07] MEDS: DOCUSATE SODIUM 100 MG CAP PO ×2 (08:18→20:54)
[2018-01-07] MEDS: VITAMIN D 1,000 INTERNATIONAL UNITS TABLET PO (08:18)
[2018-01-07] MEDS: MIRALAX *UNIT DOSE* 17GM PACKET PO ×2 (08:18→21:00)
[2018-01-07] MEDS: HumaLOG INSULIN (NovoLOG) PER UNIT SC ×4 (08:19→21:00)
[2018-01-07] MEDS: CARBAMIDE PEROXIDE 6.5% OTIC SOLN 15ML AU ×2 (08:20→21:00)
[2018-01-07] MEDS: LEVEMIR (INSULIN DETEMIR) 1 UNITS/0.01ML SC ×2 (08:20→20:56)
[2018-01-07 10:42] LABS: THEOPHYLLINE LEVEL 4.4 UG/ML (10.0-20.0)
[2018-01-07] MEDS: GASTROGRAFIN SOLUTION 30ML PO ×2 (11:47→12:09)
[2018-01-07] MEDS: PERCOCET 5MG/325MG TAB PO (14:09)
[2018-01-07] MEDS: ALBUTEROL SULFATE 2.5 MG/0.5 ML INH NEB SOLN NEB ×2 (15:00→20:00)
[2018-01-07] MEDS: MOM 30ML SUSPENSION UDC PO ×2 (16:37→20:52)
[2018-01-07] MEDS: SIMVASTATIN 40 MG TAB PO (20:54)
[2018-01-07] MEDS: EZETIMIBE 10 MG TAB (ZETIA) PO (20:54)
[2018-01-07] MEDS: LOSARTAN 50 MG TAB PO (20:55)
[2018-01-07] MEDS: THEOPHYLLINE (THEO-24) 100MG SR **CAPSULE PO (21:57)
[2018-01-08] MEDS: PERCOCET 5MG/325MG TAB PO ×2 (01:07→10:35)
[2018-01-08 05:26] LABS: BASO # 0.1 10^3/uL (0.0-0.2); BASO % 0.3 % (0.0-1.0); EOS # 0.6 10^3/uL (0.0-0.50); EOS % 2.6 % (0.0-3.0); HEMATOCRIT 32.6 % (36.0-47.0); HEMOGLOBIN 10.5 g/dl (12.0-16.0); IMMATURE GRANULOCYTE % 2.5 % (0-3.0); LYMPH # 4.1 10^3/uL (1.5-4.5); LYMPH % 19.1 % (24.0-44.0); MEAN CORPUSCULAR HEMOGLOBIN 26.3 pg (27.0-33.0); MEAN CORPUSCULAR HGB CONC 32.2 g/dl (32.0-36.5); MEAN CORPUSCULAR VOLUME 81.7 fl (80.0-96.0); MONO % 9.3 % (0.0-5.0); NEUTROPHILS # 14.2 10^3/uL (1.8-7.7); NEUTROPHILS % 66.2 % (36.0-66.0); PLATELET COUNT, AUTOMATED 304 10^3/uL (150-450); RED BLOOD COUNT 3.99 10^6/uL (4.00-5.40); RED CELL DISTRIBUTION WIDTH 14.3 % (11.5-14.5); WHITE BLOOD COUNT 21.5 10^3/uL (4.0-10.0)
[2018-01-08 05:41] LABS: ANION GAP 6 MEQ/L (8-16); BLOOD UREA NITROGEN 15 MG/DL (7-18); C REACTIVE PROTEIN QUANTITATIV 2.28 MG/DL (0.00-0.30); CALCIUM LEVEL 7.6 MG/DL (8.8-10.2); CARBON DIOXIDE LEVEL 31 MEQ/L (21-32); CHLORIDE LEVEL 105 MEQ/L (98-107); CREATININE FOR GFR 0.64 MG/DL (0.55-1.30); GLOMERULAR FILTRATION RATE > 60.0 (>39); GLUCOSE, FASTING 132 MG/DL (70-100); POTASSIUM SERUM 3.6 MEQ/L (3.5-5.1); SODIUM LEVEL 142 MEQ/L (136-145)
[2018-01-08] MEDS: LEVOTHYROXINE 75MCG TABLET (0.075MG) PO (05:43)
[2018-01-08] MEDS: HEPARIN SOD (PORCINE) 5000 UNITS/ML VIAL SC ×3 (05:43→21:43)
[2018-01-08] MEDS: MOXIFLOXACIN 400 MG TAB PO (05:43)
[2018-01-08] MEDS: ALBUTEROL SULFATE 2.5 MG/0.5 ML INH NEB SOLN NEB ×4 (08:11→20:00)
[2018-01-08] MEDS: TIOTROPIUM INHALER/CAPSULE (SPIRIVA) INH (08:11)
[2018-01-08] MEDS: ADVAIR HFA 230/21MCG INHALER INH ×2 (08:11→20:37)
[2018-01-08] MEDS: DOCUSATE SODIUM 100 MG CAP PO ×2 (09:24→21:00)
[2018-01-08] MEDS: VITAMIN D 1,000 INTERNATIONAL UNITS TABLET PO (09:25)
[2018-01-08] MEDS: MIRALAX *UNIT DOSE* 17GM PACKET PO ×2 (09:25→21:00)
[2018-01-08] MEDS: MOM 30ML SUSPENSION UDC PO ×2 (09:25→21:00)
[2018-01-08] MEDS: NICOTINE 14 MG/24 HR TRANSDERMAL TD (09:25)
[2018-01-08] MEDS: guaiFENesin ER 600 MG TAB PO ×2 (09:26→21:44)
[2018-01-08] MEDS: PANTOPRAZOLE 40MG TAB (PROTONIX) PO (09:26)
[2018-01-08] MEDS: predniSONE 20 MG TAB PO (09:26)
[2018-01-08] MEDS: SIMETHICONE 80 MG CHEW TAB PO (09:26)
[2018-01-08] MEDS: LEVEMIR (INSULIN DETEMIR) 1 UNITS/0.01ML SC ×2 (09:26→21:46)
[2018-01-08] MEDS: CARBAMIDE PEROXIDE 6.5% OTIC SOLN 15ML AU ×2 (09:27→21:00)
[2018-01-08] MEDS: HumaLOG INSULIN (NovoLOG) PER UNIT SC ×4 (09:27→21:45)
[2018-01-08 12:06] LABS: BEDSIDE GLUCOSE 249 MG/DL (83-110)
[2018-01-08] MEDS: VANCOMYCIN HCL 1,000 MG, VIAL MATE ADAPTER 1 EACH in D5W 250 ML IV (14:05)
[2018-01-08] MEDS: ALPRAZolam 0.25 MG TAB PO ×2 (14:05→21:44)
[2018-01-08] MEDS: PIPERACILLIN/TAZOBACTAM SOD 3.375 GM in APPROPRIATE DILUENT 1 EA IV ×2 (15:16→22:42)
[2018-01-08 16:26] LABS: BEDSIDE GLUCOSE 198 MG/DL (83-110)
[2018-01-08 16:26] LABS: BEDSIDE GLUCOSE 188 MG/DL (83-110)
[2018-01-08 16:26] LABS: BEDSIDE GLUCOSE 403 MG/DL (83-110)
[2018-01-08] MEDS: VANCOMYCIN HCL 750 MG, VIAL MATE ADAPTER 1 EACH in D5W 250 ML IV (21:42)
[2018-01-08] MEDS: THEOPHYLLINE (THEO-24) 100MG SR **CAPSULE PO (21:42)
[2018-01-08] MEDS: SIMVASTATIN 40 MG TAB PO (21:44)
[2018-01-08] MEDS: LOSARTAN 50 MG TAB PO (21:44)
[2018-01-08] MEDS: EZETIMIBE 10 MG TAB (ZETIA) PO (21:44)
[2018-01-09] MEDS: PIPERACILLIN/TAZOBACTAM SOD 3.375 GM in APPROPRIATE DILUENT 1 EA IV ×4 (01:26→20:07)
[2018-01-09] MEDS: PERCOCET 5MG/325MG TAB PO ×3 (01:26→20:09)
[2018-01-09] MEDS: LEVOTHYROXINE 75MCG TABLET (0.075MG) PO (05:40)
[2018-01-09] MEDS: HEPARIN SOD (PORCINE) 5000 UNITS/ML VIAL SC ×2 (05:40→14:20)
[2018-01-09 05:44] LABS: BASO # 0.1 10^3/uL (0.0-0.2); BASO % 0.3 % (0.0-1.0); EOS # 0.5 10^3/uL (0.0-0.50); EOS % 2.9 % (0.0-3.0); HEMATOCRIT 32.7 % (36.0-47.0); HEMOGLOBIN 10.5 g/dl (12.0-16.0); IMMATURE GRANULOCYTE % 2.3 % (0-3.0); LYMPH # 3.3 10^3/uL (1.5-4.5); LYMPH % 18.4 % (24.0-44.0); MEAN CORPUSCULAR HEMOGLOBIN 26.3 pg (27.0-33.0); MEAN CORPUSCULAR HGB CONC 32.1 g/dl (32.0-36.5); MEAN CORPUSCULAR VOLUME 81.8 fl (80.0-96.0); MONO # 1.5 10^3/uL (0.0-0.8); MONO % 8.3 % (0.0-5.0); NEUTROPHILS % 67.8 % (36.0-66.0); PLATELET COUNT, AUTOMATED 315 10^3/uL (150-450); RED CELL DISTRIBUTION WIDTH 14.2 % (11.5-14.5); WHITE BLOOD COUNT 17.8 10^3/uL (4.0-10.0)
[2018-01-09 05:57] LABS: ANION GAP 5 MEQ/L (8-16); BLOOD UREA NITROGEN 12 MG/DL (7-18); C REACTIVE PROTEIN QUANTITATIV 2.71 MG/DL (0.00-0.30); CALCIUM LEVEL 7.8 MG/DL (8.8-10.2); CARBON DIOXIDE LEVEL 31 MEQ/L (21-32); CHLORIDE LEVEL 103 MEQ/L (98-107); CREATININE FOR GFR 0.72 MG/DL (0.55-1.30); GLOMERULAR FILTRATION RATE > 60.0 (>39); GLUCOSE, FASTING 202 MG/DL (70-100); POTASSIUM SERUM 3.7 MEQ/L (3.5-5.1); SODIUM LEVEL 139 MEQ/L (136-145)
[2018-01-09] MEDS: VANCOMYCIN HCL 750 MG, VIAL MATE ADAPTER 1 EACH in D5W 250 ML IV ×2 (07:29→21:32)
[2018-01-09] MEDS: PANTOPRAZOLE 40MG TAB (PROTONIX) PO (08:43)
[2018-01-09] MEDS: ALPRAZolam 0.25 MG TAB PO ×2 (08:43→20:07)
[2018-01-09] MEDS: VITAMIN D 1,000 INTERNATIONAL UNITS TABLET PO (08:43)
[2018-01-09] MEDS: guaiFENesin ER 600 MG TAB PO ×2 (08:43→20:07)
[2018-01-09] MEDS: predniSONE 10 MG TAB PO (08:43)
[2018-01-09] MEDS: DOCUSATE SODIUM 100 MG CAP PO ×2 (08:43→20:07)
[2018-01-09] MEDS: MIRALAX *UNIT DOSE* 17GM PACKET PO ×2 (08:43→20:07)
[2018-01-09] MEDS: HumaLOG INSULIN (NovoLOG) PER UNIT SC ×4 (08:45→21:34)
[2018-01-09] MEDS: NICOTINE 14 MG/24 HR TRANSDERMAL TD (08:46)
[2018-01-09] MEDS: LEVEMIR (INSULIN DETEMIR) 1 UNITS/0.01ML SC ×2 (08:46→21:34)
[2018-01-09] MEDS: ADVAIR HFA 230/21MCG INHALER INH ×2 (09:02→21:53)
[2018-01-09] MEDS: TIOTROPIUM INHALER/CAPSULE (SPIRIVA) INH (09:02)
[2018-01-09] MEDS: ALBUTEROL SULFATE 2.5 MG/0.5 ML INH NEB SOLN NEB ×4 (09:02→20:00)
[2018-01-09] MEDS: EZETIMIBE 10 MG TAB (ZETIA) PO (20:07)
[2018-01-09] MEDS: THEOPHYLLINE (THEO-24) 100MG SR **CAPSULE PO (20:07)
[2018-01-09] MEDS: LOSARTAN 50 MG TAB PO (20:08)
[2018-01-09] MEDS: SIMVASTATIN 40 MG TAB PO (20:08)
[2018-01-10] MEDS: HEPARIN SOD (PORCINE) 5000 UNITS/ML VIAL SC ×4 (00:17→22:03)
[2018-01-10] MEDS: PIPERACILLIN/TAZOBACTAM SOD 3.375 GM in APPROPRIATE DILUENT 1 EA IV ×4 (02:40→22:02)
[2018-01-10] MEDS: LEVOTHYROXINE 75MCG TABLET (0.075MG) PO (05:39)
[2018-01-10] MEDS: PERCOCET 5MG/325MG TAB PO ×2 (06:54→14:40)
[2018-01-10] MEDS: TIOTROPIUM INHALER/CAPSULE (SPIRIVA) INH (07:29)
[2018-01-10] MEDS: ADVAIR HFA 230/21MCG INHALER INH ×2 (07:29→20:24)
[2018-01-10] MEDS: ALBUTEROL SULFATE 2.5 MG/0.5 ML INH NEB SOLN NEB ×4 (07:29→20:00)
[2018-01-10 07:34] LABS: BASO % 0.1 % (0.0-1.0); EOS # 0.4 10^3/uL (0.0-0.50); EOS % 2.6 % (0.0-3.0); HEMATOCRIT 31.9 % (36.0-47.0); HEMOGLOBIN 10.3 g/dl (12.0-16.0); IMMATURE GRANULOCYTE % 1.8 % (0-3.0); LYMPH # 3.1 10^3/uL (1.5-4.5); LYMPH % 18.5 % (24.0-44.0); MEAN CORPUSCULAR HEMOGLOBIN 26.3 pg (27.0-33.0); MEAN CORPUSCULAR HGB CONC 32.3 g/dl (32.0-36.5); MEAN CORPUSCULAR VOLUME 81.4 fl (80.0-96.0); MONO # 1.4 10^3/uL (0.0-0.8); MONO % 8.4 % (0.0-5.0); NEUTROPHILS # 11.6 10^3/uL (1.8-7.7); NEUTROPHILS % 68.6 % (36.0-66.0); PLATELET COUNT, AUTOMATED 335 10^3/uL (150-450); RED BLOOD COUNT 3.92 10^6/uL (4.00-5.40); RED CELL DISTRIBUTION WIDTH 14.5 % (11.5-14.5)
[2018-01-10 07:47] LABS: ANION GAP 5 MEQ/L (8-16); BLOOD UREA NITROGEN 12 MG/DL (7-18); C REACTIVE PROTEIN QUANTITATIV 1.42 MG/DL (0.00-0.30); CALCIUM LEVEL 8.1 MG/DL (8.8-10.2); CARBON DIOXIDE LEVEL 31 MEQ/L (21-32); CHLORIDE LEVEL 105 MEQ/L (98-107); CREATININE FOR GFR 0.66 MG/DL (0.55-1.30); GLOMERULAR FILTRATION RATE > 60.0 (>39); GLUCOSE, FASTING 142 MG/DL (70-100); POTASSIUM SERUM 3.7 MEQ/L (3.5-5.1); SODIUM LEVEL 141 MEQ/L (136-145)
[2018-01-10 07:49] LABS: VANCOMYCIN LEVEL TROUGH 11.9 UG/ML (10.0-20.0)
[2018-01-10] MEDS: VANCOMYCIN HCL 750 MG, VIAL MATE ADAPTER 1 EACH in D5W 250 ML IV ×2 (09:33→20:42)
[2018-01-10] MEDS: HumaLOG INSULIN (NovoLOG) PER UNIT SC ×4 (09:33→22:03)
[2018-01-10] MEDS: guaiFENesin ER 600 MG TAB PO ×2 (09:34→20:42)
[2018-01-10] MEDS: PANTOPRAZOLE 40MG TAB (PROTONIX) PO (09:34)
[2018-01-10] MEDS: DOCUSATE SODIUM 100 MG CAP PO ×2 (09:34→20:43)
[2018-01-10] MEDS: VITAMIN D 1,000 INTERNATIONAL UNITS TABLET PO (09:34)
[2018-01-10] MEDS: NICOTINE 14 MG/24 HR TRANSDERMAL TD (09:34)
[2018-01-10] MEDS: MIRALAX *UNIT DOSE* 17GM PACKET PO ×2 (09:35→20:43)
[2018-01-10] MEDS: predniSONE 10 MG TAB PO (09:35)
[2018-01-10] MEDS: LEVEMIR (INSULIN DETEMIR) 1 UNITS/0.01ML SC ×2 (09:35→22:02)
[2018-01-10] MEDS: ALPRAZolam 0.25 MG TAB PO ×2 (09:35→20:43)
[2018-01-10] MEDS ORDERED: FLEET ENEMA PR (12:00)
[2018-01-10 12:09] LABS: BEDSIDE GLUCOSE 245 MG/DL (83-110)
[2018-01-10 12:09] LABS: BEDSIDE GLUCOSE 184 MG/DL (83-110)
[2018-01-10 12:09] LABS: BEDSIDE GLUCOSE 306 MG/DL (83-110)
[2018-01-10 12:09] LABS: BEDSIDE GLUCOSE 293 MG/DL (83-110)
[2018-01-10 12:09] LABS: BEDSIDE GLUCOSE 312 MG/DL (83-110)
[2018-01-10 12:09] LABS: BEDSIDE GLUCOSE 301 MG/DL (83-110)
[2018-01-10] MEDS: MOM 30ML SUSPENSION UDC PO (14:40)
[2018-01-10] MEDS: SIMVASTATIN 40 MG TAB PO (20:42)
[2018-01-10] MEDS: LOSARTAN 50 MG TAB PO (20:43)
[2018-01-10] MEDS: EZETIMIBE 10 MG TAB (ZETIA) PO (20:43)
[2018-01-10] MEDS: THEOPHYLLINE (THEO-24) 100MG SR **CAPSULE PO (20:43)
[2018-01-10 21:45] LABS: BEDSIDE GLUCOSE 291 MG/DL (83-110)
[2018-01-10 21:45] LABS: BEDSIDE GLUCOSE 169 MG/DL (83-110)
[2018-01-11] MEDS: PIPERACILLIN/TAZOBACTAM SOD 3.375 GM in APPROPRIATE DILUENT 1 EA IV ×4 (01:41→20:41)
[2018-01-11] MEDS: PERCOCET 5MG/325MG TAB PO ×2 (05:02→20:43)
[2018-01-11] MEDS: HEPARIN SOD (PORCINE) 5000 UNITS/ML VIAL SC ×3 (05:34→22:09)
[2018-01-11] MEDS: LEVOTHYROXINE 75MCG TABLET (0.075MG) PO (05:34)
[2018-01-11 06:28] LABS: BASO % 0.1 % (0.0-1.0); EOS # 0.5 10^3/uL (0.0-0.50); EOS % 3.3 % (0.0-3.0); HEMATOCRIT 33.4 % (36.0-47.0); HEMOGLOBIN 10.5 g/dl (12.0-16.0); IMMATURE GRANULOCYTE % 1.7 % (0-3.0); LYMPH # 3.2 10^3/uL (1.5-4.5); LYMPH % 21.6 % (24.0-44.0); MEAN CORPUSCULAR HEMOGLOBIN 25.9 pg (27.0-33.0); MEAN CORPUSCULAR HGB CONC 31.4 g/dl (32.0-36.5); MEAN CORPUSCULAR VOLUME 82.5 fl (80.0-96.0); MONO # 1.4 10^3/uL (0.0-0.8); MONO % 9.2 % (0.0-5.0); NEUTROPHILS # 9.5 10^3/uL (1.8-7.7); NEUTROPHILS % 64.1 % (36.0-66.0); PLATELET COUNT, AUTOMATED 348 10^3/uL (150-450); RED BLOOD COUNT 4.05 10^6/uL (4.00-5.40); RED CELL DISTRIBUTION WIDTH 14.4 % (11.5-14.5); WHITE BLOOD COUNT 14.8 10^3/uL (4.0-10.0)
[2018-01-11 06:43] LABS: ANION GAP 6 MEQ/L (8-16); BLOOD UREA NITROGEN 11 MG/DL (7-18); C REACTIVE PROTEIN QUANTITATIV 1.06 MG/DL (0.00-0.30); CALCIUM LEVEL 8.3 MG/DL (8.8-10.2); CARBON DIOXIDE LEVEL 34 MEQ/L (21-32); CHLORIDE LEVEL 103 MEQ/L (98-107); CREATININE FOR GFR 0.66 MG/DL (0.55-1.30); GLOMERULAR FILTRATION RATE > 60.0 (>39); GLUCOSE, FASTING 98 MG/DL (70-100); POTASSIUM SERUM 3.6 MEQ/L (3.5-5.1); SODIUM LEVEL 143 MEQ/L (136-145)
[2018-01-11] MEDS: TIOTROPIUM INHALER/CAPSULE (SPIRIVA) INH (07:25)
[2018-01-11] MEDS: ALBUTEROL SULFATE 2.5 MG/0.5 ML INH NEB SOLN NEB ×4 (07:25→19:11)
[2018-01-11] MEDS: ADVAIR HFA 230/21MCG INHALER INH ×2 (07:25→19:11)
[2018-01-11] MEDS: HumaLOG INSULIN (NovoLOG) PER UNIT SC ×4 (07:42→21:00)
[2018-01-11] MEDS: DOCUSATE SODIUM 100 MG CAP PO ×2 (08:20→20:42)
[2018-01-11] MEDS: guaiFENesin ER 600 MG TAB PO ×2 (08:20→20:42)
[2018-01-11] MEDS: ALPRAZolam 0.25 MG TAB PO ×2 (08:20→20:43)
[2018-01-11] MEDS: PANTOPRAZOLE 40MG TAB (PROTONIX) PO (08:20)
[2018-01-11] MEDS: VITAMIN D 1,000 INTERNATIONAL UNITS TABLET PO (08:20)
[2018-01-11] MEDS: VANCOMYCIN HCL 750 MG, VIAL MATE ADAPTER 1 EACH in D5W 250 ML IV (08:20)
[2018-01-11] MEDS: MOM 30ML SUSPENSION UDC PO (08:20)
[2018-01-11] MEDS: predniSONE 10 MG TAB PO (08:20)
[2018-01-11] MEDS: MIRALAX *UNIT DOSE* 17GM PACKET PO ×2 (08:21→20:43)
[2018-01-11] MEDS: LEVEMIR (INSULIN DETEMIR) 1 UNITS/0.01ML SC ×2 (08:21→22:09)
[2018-01-11] MEDS: NICOTINE 14 MG/24 HR TRANSDERMAL TD (08:21)
[2018-01-11 11:58] LABS: BEDSIDE GLUCOSE 143 MG/DL (83-110)
[2018-01-11] MEDS: HYALURONIDASE 150UNIT/ML 1ML VIAL (AMPHADASE) (J3470) SQ (12:47)
[2018-01-11 16:56] LABS: BEDSIDE GLUCOSE 218 MG/DL (83-110)
[2018-01-11] MEDS: EZETIMIBE 10 MG TAB (ZETIA) PO (20:42)
[2018-01-11] MEDS: SIMVASTATIN 40 MG TAB PO (20:42)
[2018-01-11] MEDS: THEOPHYLLINE (THEO-24) 100MG SR **CAPSULE PO (20:42)
[2018-01-11] MEDS: LOSARTAN 50 MG TAB PO (20:43)
[2018-01-11 21:41] LABS: BEDSIDE GLUCOSE 244 MG/DL (83-110)
[2018-01-12] MEDS: PIPERACILLIN/TAZOBACTAM SOD 3.375 GM in APPROPRIATE DILUENT 1 EA IV ×4 (01:54→20:56)
[2018-01-12] MEDS: LEVOTHYROXINE 75MCG TABLET (0.075MG) PO (06:20)
[2018-01-12] MEDS: HEPARIN SOD (PORCINE) 5000 UNITS/ML VIAL SC ×3 (06:20→21:03)
[2018-01-12] MEDS: HumaLOG INSULIN (NovoLOG) PER UNIT SC ×4 (07:30→21:03)
[2018-01-12] MEDS: ALBUTEROL SULFATE 2.5 MG/0.5 ML INH NEB SOLN NEB ×4 (08:00→20:00)
[2018-01-12 08:08] LABS: BEDSIDE GLUCOSE 74 MG/DL (83-110)
[2018-01-12] MEDS: NICOTINE 14 MG/24 HR TRANSDERMAL TD (08:34)
[2018-01-12] MEDS: MIRALAX *UNIT DOSE* 17GM PACKET PO ×2 (08:35→21:06)
[2018-01-12] MEDS: LEVEMIR (INSULIN DETEMIR) 1 UNITS/0.01ML SC ×2 (08:36→21:03)
[2018-01-12] MEDS: ALPRAZolam 0.25 MG TAB PO ×2 (08:36→21:02)
[2018-01-12] MEDS: guaiFENesin ER 600 MG TAB PO ×2 (08:36→21:01)
[2018-01-12] MEDS: VITAMIN D 1,000 INTERNATIONAL UNITS TABLET PO (08:36)
[2018-01-12] MEDS: PANTOPRAZOLE 40MG TAB (PROTONIX) PO (08:37)
[2018-01-12] MEDS: DOCUSATE SODIUM 100 MG CAP PO ×2 (08:37→21:01)
[2018-01-12] MEDS: predniSONE 10 MG TAB PO (08:37)
[2018-01-12] MEDS: PERCOCET 5MG/325MG TAB PO ×2 (08:51→17:15)
[2018-01-12] MEDS: TIOTROPIUM INHALER/CAPSULE (SPIRIVA) INH (09:10)
[2018-01-12] MEDS: ADVAIR HFA 230/21MCG INHALER INH ×2 (09:11→21:00)
[2018-01-12 17:36] LABS: BEDSIDE GLUCOSE 305 MG/DL (83-110)
[2018-01-12 17:37] LABS: BEDSIDE GLUCOSE 174 MG/DL (83-110)
[2018-01-12] MEDS: FUROSEMIDE 20 MG/2 ML VIAL (J1940) IV (19:19)
[2018-01-12] MEDS: THEOPHYLLINE (THEO-24) 100MG SR **CAPSULE PO (21:00)
[2018-01-12] MEDS: SIMVASTATIN 40 MG TAB PO (21:01)
[2018-01-12] MEDS: LOSARTAN 50 MG TAB PO (21:01)
[2018-01-12] MEDS: EZETIMIBE 10 MG TAB (ZETIA) PO (21:02)
[2018-01-12 21:04] LABS: BEDSIDE GLUCOSE 301 MG/DL (83-110)
[2018-01-13] MEDS: PIPERACILLIN/TAZOBACTAM SOD 3.375 GM in APPROPRIATE DILUENT 1 EA IV ×4 (01:45→20:53)
[2018-01-13] MEDS: LEVOTHYROXINE 75MCG TABLET (0.075MG) PO (05:52)
[2018-01-13] MEDS: HEPARIN SOD (PORCINE) 5000 UNITS/ML VIAL SC ×3 (05:53→21:06)
[2018-01-13 06:45] LABS: BEDSIDE GLUCOSE 70 MG/DL (83-110)
[2018-01-13] MEDS: HumaLOG INSULIN (NovoLOG) PER UNIT SC ×4 (07:30→21:00)
[2018-01-13] MEDS: ALBUTEROL SULFATE 2.5 MG/0.5 ML INH NEB SOLN NEB ×4 (08:00→21:59)
[2018-01-13] MEDS: ADVAIR HFA 230/21MCG INHALER INH ×2 (08:22→21:58)
[2018-01-13] MEDS: TIOTROPIUM INHALER/CAPSULE (SPIRIVA) INH (08:22)
[2018-01-13] MEDS: DOCUSATE SODIUM 100 MG CAP PO ×2 (08:41→20:53)
[2018-01-13] MEDS: PANTOPRAZOLE 40MG TAB (PROTONIX) PO (08:41)
[2018-01-13] MEDS: MIRALAX *UNIT DOSE* 17GM PACKET PO ×2 (08:41→20:53)
[2018-01-13] MEDS: VITAMIN D 1,000 INTERNATIONAL UNITS TABLET PO (08:41)
[2018-01-13] MEDS: guaiFENesin ER 600 MG TAB PO ×2 (08:41→20:52)
[2018-01-13] MEDS: predniSONE 10 MG TAB PO (08:41)
[2018-01-13] MEDS: ALPRAZolam 0.25 MG TAB PO ×2 (08:41→20:53)
[2018-01-13] MEDS: NICOTINE 14 MG/24 HR TRANSDERMAL TD (08:42)
[2018-01-13] MEDS: LEVEMIR (INSULIN DETEMIR) 1 UNITS/0.01ML SC ×2 (08:42→21:07)
[2018-01-13 10:21] LABS: BASO % 0.3 % (0.0-1.0); EOS # 0.4 10^3/uL (0.0-0.50); EOS % 2.5 % (0.0-3.0); HEMATOCRIT 32.3 % (36.0-47.0); HEMOGLOBIN 10.4 g/dl (12.0-16.0); IMMATURE GRANULOCYTE % 1.1 % (0-3.0); LYMPH # 2.4 10^3/uL (1.5-4.5); LYMPH % 15.9 % (24.0-44.0); MEAN CORPUSCULAR HEMOGLOBIN 26.3 pg (27.0-33.0); MEAN CORPUSCULAR HGB CONC 32.2 g/dl (32.0-36.5); MEAN CORPUSCULAR VOLUME 81.6 fl (80.0-96.0); MONO # 0.9 10^3/uL (0.0-0.8); MONO % 6.2 % (0.0-5.0); NEUTROPHILS # 11.2 10^3/uL (1.8-7.7); PLATELET COUNT, AUTOMATED 331 10^3/uL (150-450); RED BLOOD COUNT 3.96 10^6/uL (4.00-5.40); RED CELL DISTRIBUTION WIDTH 14.1 % (11.5-14.5); WHITE BLOOD COUNT 15.1 10^3/uL (4.0-10.0)
[2018-01-13 10:49] LABS: ANION GAP 6 MEQ/L (8-16); BLOOD UREA NITROGEN 13 MG/DL (7-18); C REACTIVE PROTEIN QUANTITATIV 0.42 MG/DL (0.00-0.30); CALCIUM LEVEL 8.4 MG/DL (8.8-10.2); CARBON DIOXIDE LEVEL 33 MEQ/L (21-32); CHLORIDE LEVEL 100 MEQ/L (98-107); CREATININE FOR GFR 0.84 MG/DL (0.55-1.30); GLOMERULAR FILTRATION RATE > 60.0 (>39); GLUCOSE, FASTING 300 MG/DL (70-100); MAGNESIUM LEVEL 2.1 MG/DL (1.8-2.4); POTASSIUM SERUM 3.8 MEQ/L (3.5-5.1); SODIUM LEVEL 139 MEQ/L (136-145)
[2018-01-13] MEDS: PERCOCET 5MG/325MG TAB PO (11:01)
[2018-01-13 11:55] LABS: BEDSIDE GLUCOSE 271 MG/DL (83-110)
[2018-01-13 17:41] LABS: BEDSIDE GLUCOSE 276 MG/DL (83-110)
[2018-01-13] MEDS: SIMVASTATIN 40 MG TAB PO (20:52)
[2018-01-13] MEDS: THEOPHYLLINE (THEO-24) 100MG SR **CAPSULE PO (20:52)
[2018-01-13] MEDS: EZETIMIBE 10 MG TAB (ZETIA) PO (20:53)
[2018-01-13] MEDS: LOSARTAN 50 MG TAB PO (20:53)
[2018-01-14] MEDS: PIPERACILLIN/TAZOBACTAM SOD 3.375 GM in APPROPRIATE DILUENT 1 EA IV ×3 (01:36→13:56)
[2018-01-14] MEDS: PERCOCET 5MG/325MG TAB PO ×2 (02:27→09:30)
[2018-01-14 02:49] LABS: BEDSIDE GLUCOSE 186 MG/DL (83-110)
[2018-01-14] MEDS: HEPARIN SOD (PORCINE) 5000 UNITS/ML VIAL SC ×3 (05:44→21:05)
[2018-01-14] MEDS: LEVOTHYROXINE 75MCG TABLET (0.075MG) PO (05:44)
[2018-01-14 06:02] LABS: HEMATOCRIT 34.8 % (36.0-47.0); HEMOGLOBIN 10.9 g/dl (12.0-16.0); MEAN CORPUSCULAR HEMOGLOBIN 26.3 pg (27.0-33.0); MEAN CORPUSCULAR HGB CONC 31.3 g/dl (32.0-36.5); MEAN CORPUSCULAR VOLUME 83.9 fl (80.0-96.0); PLATELET COUNT, AUTOMATED 343 10^3/uL (150-450); RED BLOOD COUNT 4.15 10^6/uL (4.00-5.40); RED CELL DISTRIBUTION WIDTH 14.2 % (11.5-14.5); WHITE BLOOD COUNT 11.7 10^3/uL (4.0-10.0)
[2018-01-14 06:22] LABS: ANION GAP 5 MEQ/L (8-16); BLOOD UREA NITROGEN 14 MG/DL (7-18); CALCIUM LEVEL 9.1 MG/DL (8.8-10.2); CARBON DIOXIDE LEVEL 34 MEQ/L (21-32); CHLORIDE LEVEL 104 MEQ/L (98-107); CREATININE FOR GFR 0.83 MG/DL (0.55-1.30); GLOMERULAR FILTRATION RATE > 60.0 (>39); GLUCOSE, FASTING 98 MG/DL (70-100); SODIUM LEVEL 143 MEQ/L (136-145)
[2018-01-14] MEDS: HumaLOG INSULIN (NovoLOG) PER UNIT SC ×4 (07:30→20:43)
[2018-01-14] MEDS: ALBUTEROL SULFATE 2.5 MG/0.5 ML INH NEB SOLN NEB ×4 (08:00→20:00)
[2018-01-14] MEDS: TIOTROPIUM INHALER/CAPSULE (SPIRIVA) INH (08:05)
[2018-01-14] MEDS: ADVAIR HFA 230/21MCG INHALER INH ×2 (08:05→20:20)
[2018-01-14] MEDS: LEVEMIR (INSULIN DETEMIR) 1 UNITS/0.01ML SC ×2 (08:59→21:07)
[2018-01-14] MEDS: NICOTINE 14 MG/24 HR TRANSDERMAL TD (09:00)
[2018-01-14] MEDS: DOCUSATE SODIUM 100 MG CAP PO ×2 (09:01→21:06)
[2018-01-14] MEDS: VITAMIN D 1,000 INTERNATIONAL UNITS TABLET PO (09:01)
[2018-01-14] MEDS: ALPRAZolam 0.25 MG TAB PO ×2 (09:01→21:06)
[2018-01-14] MEDS: MIRALAX *UNIT DOSE* 17GM PACKET PO ×2 (09:01→21:06)
[2018-01-14] MEDS: guaiFENesin ER 600 MG TAB PO ×2 (09:02→21:06)
[2018-01-14] MEDS: PANTOPRAZOLE 40MG TAB (PROTONIX) PO (09:02)
[2018-01-14] MEDS: predniSONE 10 MG TAB PO (09:03)
[2018-01-14 11:50] LABS: BEDSIDE GLUCOSE 135 MG/DL (83-110)
[2018-01-14 17:06] LABS: BEDSIDE GLUCOSE 267 MG/DL (83-110)
[2018-01-14] MEDS: FUROSEMIDE 40 MG/4 ML VIAL (J1940) IV (18:37)
[2018-01-14 20:55] LABS: BEDSIDE GLUCOSE 214 MG/DL (83-110)
[2018-01-14] MEDS: LOSARTAN 50 MG TAB PO (21:05)
[2018-01-14] MEDS: THEOPHYLLINE (THEO-24) 100MG SR **CAPSULE PO (21:05)
[2018-01-14] MEDS: SIMVASTATIN 40 MG TAB PO (21:06)
[2018-01-14] MEDS: EZETIMIBE 10 MG TAB (ZETIA) PO (21:06)
[2018-01-14] MEDS: **hydrALAZINE HCL** 25 MG TAB PO (21:07)
[2018-01-15 05:57] LABS: HEMATOCRIT 35.1 % (36.0-47.0); HEMOGLOBIN 11.1 g/dl (12.0-16.0); MEAN CORPUSCULAR HEMOGLOBIN 26.2 pg (27.0-33.0); MEAN CORPUSCULAR HGB CONC 31.6 g/dl (32.0-36.5); MEAN CORPUSCULAR VOLUME 82.8 fl (80.0-96.0); PLATELET COUNT, AUTOMATED 340 10^3/uL (150-450); RED BLOOD COUNT 4.24 10^6/uL (4.00-5.40); RED CELL DISTRIBUTION WIDTH 14.4 % (11.5-14.5); WHITE BLOOD COUNT 11.8 10^3/uL (4.0-10.0)
[2018-01-15] MEDS: LEVOTHYROXINE 75MCG TABLET (0.075MG) PO (05:59)
[2018-01-15] MEDS: HEPARIN SOD (PORCINE) 5000 UNITS/ML VIAL SC ×3 (05:59→22:41)
[2018-01-15 06:23] LABS: ANION GAP 6 MEQ/L (8-16); BLOOD UREA NITROGEN 15 MG/DL (7-18); CALCIUM LEVEL 8.9 MG/DL (8.8-10.2); CARBON DIOXIDE LEVEL 35 MEQ/L (21-32); CHLORIDE LEVEL 103 MEQ/L (98-107); GLOMERULAR FILTRATION RATE > 60.0 (>39); GLUCOSE, FASTING 197 MG/DL (70-100); POTASSIUM SERUM 3.9 MEQ/L (3.5-5.1); SODIUM LEVEL 144 MEQ/L (136-145)
[2018-01-15] MEDS: HumaLOG INSULIN (NovoLOG) PER UNIT SC ×4 (07:40→20:21)
[2018-01-15] MEDS: ALBUTEROL SULFATE 2.5 MG/0.5 ML INH NEB SOLN NEB ×4 (08:00→20:08)
[2018-01-15] MEDS: TIOTROPIUM INHALER/CAPSULE (SPIRIVA) INH (08:00)
[2018-01-15] MEDS: ALPRAZolam 0.25 MG TAB PO ×2 (09:00→20:07)
[2018-01-15] MEDS: NICOTINE 14 MG/24 HR TRANSDERMAL TD (09:00)
[2018-01-15] MEDS: MIRALAX *UNIT DOSE* 17GM PACKET PO ×2 (09:00→20:08)
[2018-01-15] MEDS: PERCOCET 5MG/325MG TAB PO ×2 (09:25→20:06)
[2018-01-15] MEDS: ADVAIR HFA 230/21MCG INHALER INH ×2 (09:34→19:38)
[2018-01-15] MEDS: PANTOPRAZOLE 40MG TAB (PROTONIX) PO (10:13)
[2018-01-15] MEDS: LEVEMIR (INSULIN DETEMIR) 1 UNITS/0.01ML SC ×2 (10:13→20:13)
[2018-01-15] MEDS: VITAMIN D 1,000 INTERNATIONAL UNITS TABLET PO (10:13)
[2018-01-15] MEDS: DOCUSATE SODIUM 100 MG CAP PO ×2 (10:14→20:07)
[2018-01-15] MEDS: predniSONE 10 MG TAB PO (10:14)
[2018-01-15] MEDS: guaiFENesin ER 600 MG TAB PO ×2 (10:14→20:06)
[2018-01-15] MEDS: **hydrALAZINE HCL** 25 MG TAB PO ×2 (10:15→20:08)
[2018-01-15 12:10] LABS: BEDSIDE GLUCOSE 172 MG/DL (83-110)
[2018-01-15 16:54] LABS: BEDSIDE GLUCOSE 301 MG/DL (83-110)
[2018-01-15] MEDS: ACETYLCYSTEINE 10% 30 ML VIAL INH (19:38)
[2018-01-15] MEDS: THEOPHYLLINE (THEO-24) 100MG SR **CAPSULE PO (20:07)
[2018-01-15] MEDS: SIMVASTATIN 40 MG TAB PO (20:07)
[2018-01-15] MEDS: LOSARTAN 50 MG TAB PO (20:07)
[2018-01-15] MEDS: EZETIMIBE 10 MG TAB (ZETIA) PO (20:08)
[2018-01-15 20:43] LABS: BEDSIDE GLUCOSE 260 MG/DL (83-110)
[2018-01-16] MEDS: LEVOTHYROXINE 75MCG TABLET (0.075MG) PO (05:21)
[2018-01-16] MEDS: HEPARIN SOD (PORCINE) 5000 UNITS/ML VIAL SC ×3 (05:21→22:00)
[2018-01-16 06:43] LABS: HEMOGLOBIN 10.6 g/dl (12.0-16.0); MEAN CORPUSCULAR HEMOGLOBIN 26.3 pg (27.0-33.0); MEAN CORPUSCULAR HGB CONC 31.2 g/dl (32.0-36.5); MEAN CORPUSCULAR VOLUME 84.4 fl (80.0-96.0); PLATELET COUNT, AUTOMATED 315 10^3/uL (150-450); RED BLOOD COUNT 4.03 10^6/uL (4.00-5.40); RED CELL DISTRIBUTION WIDTH 14.6 % (11.5-14.5); WHITE BLOOD COUNT 10.7 10^3/uL (4.0-10.0)
[2018-01-16 07:10] LABS: ANION GAP 8 MEQ/L (8-16); BLOOD UREA NITROGEN 19 MG/DL (7-18); CALCIUM LEVEL 8.7 MG/DL (8.8-10.2); CARBON DIOXIDE LEVEL 30 MEQ/L (21-32); CHLORIDE LEVEL 105 MEQ/L (98-107); CREATININE FOR GFR 0.68 MG/DL (0.55-1.30); GLOMERULAR FILTRATION RATE > 60.0 (>39); GLUCOSE, FASTING 162 MG/DL (70-100); POTASSIUM SERUM 3.4 MEQ/L (3.5-5.1); SODIUM LEVEL 143 MEQ/L (136-145)
[2018-01-16] MEDS: **hydrALAZINE HCL** 25 MG TAB PO (08:32)
[2018-01-16] MEDS: HumaLOG INSULIN (NovoLOG) PER UNIT SC ×4 (08:33→20:27)
[2018-01-16] MEDS: POTASSIUM CHLORIDE 10 MEQ SR TABLET PO (08:35)
[2018-01-16] MEDS: ALPRAZolam 0.25 MG TAB PO ×2 (08:35→20:21)
[2018-01-16] MEDS: MIRALAX *UNIT DOSE* 17GM PACKET PO ×3 (08:35→20:25)
[2018-01-16] MEDS: predniSONE 10 MG TAB PO (08:38)
[2018-01-16] MEDS: PANTOPRAZOLE 40MG TAB (PROTONIX) PO (08:38)
[2018-01-16] MEDS: VITAMIN D 1,000 INTERNATIONAL UNITS TABLET PO (08:38)
[2018-01-16] MEDS: LEVEMIR (INSULIN DETEMIR) 1 UNITS/0.01ML SC ×2 (08:38→20:29)
[2018-01-16] MEDS: DOCUSATE SODIUM 100 MG CAP PO ×2 (08:39→20:21)
[2018-01-16] MEDS: guaiFENesin ER 600 MG TAB PO ×2 (08:39→20:20)
[2018-01-16] MEDS: NICOTINE 14 MG/24 HR TRANSDERMAL TD (09:00)
[2018-01-16] MEDS: ALBUTEROL SULFATE 2.5 MG/0.5 ML INH NEB SOLN NEB ×3 (09:35→20:00)
[2018-01-16] MEDS: TIOTROPIUM INHALER/CAPSULE (SPIRIVA) INH (09:35)
[2018-01-16] MEDS: ADVAIR HFA 230/21MCG INHALER INH ×2 (09:35→21:03)
[2018-01-16] MEDS: ACETYLCYSTEINE 10% 30 ML VIAL INH ×2 (09:35→20:00)
[2018-01-16] MEDS: PERCOCET 5MG/325MG TAB PO (10:59)
[2018-01-16 12:05] LABS: BEDSIDE GLUCOSE 159 MG/DL (83-110)
[2018-01-16 16:47] LABS: BEDSIDE GLUCOSE 251 MG/DL (83-110)
[2018-01-16] MEDS: THEOPHYLLINE (THEO-24) 100MG SR **CAPSULE PO (20:20)
[2018-01-16] MEDS: SIMVASTATIN 40 MG TAB PO (20:20)
[2018-01-16] MEDS: LOSARTAN 50 MG TAB PO (20:21)
[2018-01-16] MEDS: EZETIMIBE 10 MG TAB (ZETIA) PO (20:21)
[2018-01-16 20:43] LABS: BEDSIDE GLUCOSE 213 MG/DL (83-110)
[2018-01-17] MEDS: PERCOCET 5MG/325MG TAB PO ×2 (03:37→08:03)
[2018-01-17] MEDS: LEVOTHYROXINE 75MCG TABLET (0.075MG) PO (05:30)
[2018-01-17] MEDS: HEPARIN SOD (PORCINE) 5000 UNITS/ML VIAL SC (05:30)
[2018-01-17 05:45] LABS: HEMATOCRIT 34.8 % (36.0-47.0); HEMOGLOBIN 10.9 g/dl (12.0-16.0); MEAN CORPUSCULAR HEMOGLOBIN 26.2 pg (27.0-33.0); MEAN CORPUSCULAR HGB CONC 31.3 g/dl (32.0-36.5); MEAN CORPUSCULAR VOLUME 83.7 fl (80.0-96.0); PLATELET COUNT, AUTOMATED 326 10^3/uL (150-450); RED BLOOD COUNT 4.16 10^6/uL (4.00-5.40); RED CELL DISTRIBUTION WIDTH 14.7 % (11.5-14.5); WHITE BLOOD COUNT 10.3 10^3/uL (4.0-10.0)
[2018-01-17 06:23] LABS: ANION GAP 8 MEQ/L (8-16); BLOOD UREA NITROGEN 18 MG/DL (7-18); CALCIUM LEVEL 8.7 MG/DL (8.8-10.2); CARBON DIOXIDE LEVEL 28 MEQ/L (21-32); CHLORIDE LEVEL 107 MEQ/L (98-107); GLOMERULAR FILTRATION RATE > 60.0 (>39); GLUCOSE, FASTING 153 MG/DL (70-100); POTASSIUM SERUM 3.7 MEQ/L (3.5-5.1); SODIUM LEVEL 143 MEQ/L (136-145)
[2018-01-17] MEDS: HumaLOG INSULIN (NovoLOG) PER UNIT SC (07:32)
[2018-01-17] MEDS: ACETYLCYSTEINE 10% 30 ML VIAL INH (08:00)
[2018-01-17] MEDS: ALBUTEROL SULFATE 2.5 MG/0.5 ML INH NEB SOLN NEB (08:00)
[2018-01-17] MEDS: LEVEMIR (INSULIN DETEMIR) 1 UNITS/0.01ML SC (08:02)
[2018-01-17] MEDS: VITAMIN D 1,000 INTERNATIONAL UNITS TABLET PO (08:03)
[2018-01-17] MEDS: ALPRAZolam 0.25 MG TAB PO (08:03)
[2018-01-17] MEDS: guaiFENesin ER 600 MG TAB PO (08:03)
[2018-01-17] MEDS: DOCUSATE SODIUM 100 MG CAP PO (08:04)
[2018-01-17] MEDS: NICOTINE 14 MG/24 HR TRANSDERMAL TD (08:04)
[2018-01-17] MEDS: MIRALAX *UNIT DOSE* 17GM PACKET PO (08:04)
[2018-01-17] MEDS: PANTOPRAZOLE 40MG TAB (PROTONIX) PO (08:04)
[2018-01-17] MEDS: ADVAIR HFA 230/21MCG INHALER INH (08:37)
[2018-01-17] MEDS: TIOTROPIUM INHALER/CAPSULE (SPIRIVA) INH (08:38)
== END 2018-01-17 11:40 | disposition home health service (06) | DRG 190 ==
LOC: M MSPAV 01-02 18:51 → M ED 13:24 → M ED INP 16:10 → M PCU 19:58
DX: J44.1 Chronic obstructive pulmonary disease with (acute) exacerbation (principal); J18.9 Pneumonia, unspecified organism; J96.21 Acute and chronic respiratory failure with hypoxia; E87.1 Hypo-osmolality and hyponatremia; J44.0 Chronic obstructive pulmonary disease with (acute) lower respiratory infection; E03.9 Hypothyroidism, unspecified; E11.9 Type 2 diabetes mellitus without complications; I10 Essential (primary) hypertension; R91.1 Solitary pulmonary nodule; F17.210 Nicotine dependence, cigarettes, uncomplicated; Z88.0 Allergy status to penicillin; Z88.2 Allergy status to sulfonamides; Z88.1 Allergy status to other antibiotic agents; Z88.8 Allergy status to other drugs, medicaments and biological substances; Z88.5 Allergy status to narcotic agent; Z79.84 Long term (current) use of oral hypoglycemic drugs; Z99.81 Dependence on supplemental oxygen; Z79.899 Other long term (current) drug therapy; Z98.41 Cataract extraction status, right eye; Z98.42 Cataract extraction status, left eye

== ENCOUNTER 2018-04-10 13:08 | Inpatient (IN) | payer MEDICARE, OTHER ==
[2018-04-10 13:42] LABS: BASO # 0.1 10^3/uL (0.0-0.2); BASO % 0.5 % (0.0-1.0); EOS % 0.2 % (0.0-3.0); HEMATOCRIT 43.2 % (36.0-47.0); HEMOGLOBIN 13.7 g/dl (12.0-15.5); IMMATURE GRANULOCYTE % 0.6 % (0-3.0); LYMPH # 1.2 10^3/uL (1.5-4.5); MEAN CORPUSCULAR HEMOGLOBIN 25.6 pg (27.0-33.0); MEAN CORPUSCULAR HGB CONC 31.7 g/dl (32.0-36.5); MEAN CORPUSCULAR VOLUME 80.7 fl (80.0-96.0); MONO # 0.3 10^3/uL (0.0-0.8); MONO % 2.1 % (0.0-5.0); NEUTROPHILS # 13.3 10^3/uL (1.8-7.7); NEUTROPHILS % 88.6 % (36.0-66.0); PLATELET COUNT, AUTOMATED 503 10^3/uL (150-450); RED BLOOD COUNT 5.35 10^6/uL (4.00-5.40); RED CELL DISTRIBUTION WIDTH 14.1 % (11.5-14.5)
[2018-04-10] MEDS: ASPIRIN 81 MG CHEW TABLET PO (13:51)
[2018-04-10] MEDS: methylPREDNISolone INJ 125 MG/2 ML VIAL (J2930) IV (13:51)
[2018-04-10] MEDS: NS 1,000 ML IV (13:51)
[2018-04-10 13:54] LABS: INR 0.96; PROTHROMBIN TIME 12.9 SECONDS (12.4-14.5)
[2018-04-10 14:01] LABS: ALT/SGPT 12 U/L (12-78); ANION GAP 10 MEQ/L (8-16); AST/SGOT 12 U/L (7-37); BLOOD UREA NITROGEN 14 MG/DL (7-18); CALCIUM LEVEL 8.7 MG/DL (8.8-10.2); CARBON DIOXIDE LEVEL 28 MEQ/L (21-32); CHLORIDE LEVEL 98 MEQ/L (98-107); GLOMERULAR FILTRATION RATE 51.4 (>39); GLUCOSE, FASTING 338 MG/DL (70-100); POTASSIUM SERUM 3.7 MEQ/L (3.5-5.1); SODIUM LEVEL 136 MEQ/L (136-145)
[2018-04-10 14:02] LABS: ALBUMIN 3.7 GM/DL (3.2-5.2); ALBUMIN/GLOBULIN RATIO 0.82 (1.00-1.93); ALKALINE PHOSPHATASE 60 U/L (45-117); BILIRUBIN,DIRECT < 0.1 MG/DL (0.0-0.2); BILIRUBIN,TOTAL 0.4 MG/DL (0.2-1.0); CK-MB VALUE MASS 1.7 NG/ML (<3.6); CPK CREATINE PHOSPHOKINASE 44 U/L (26-192); MB/CK RELATIVE INDEX 3.86 (< OR =4); NT-PRO BNP 195 PG/ML (<450); TOTAL PROTEIN 8.2 GM/DL (6.4-8.2); TROPONIN I < 0.02 NG/ML (< 0.10)
[2018-04-10 14:06] LABS: ABG O2 SATURATION 95.9 % (95.0-99.0); ABG PARTIAL PRESSURE CO2 38.6 mmHg (35.0-45.0); ABG PARTIAL PRESSURE O2 78.6 mmHg (75.0-100.0); ABG STANDARD HCO3 26.2 MEQ/L (22.0-26.0); ABG TOTAL CO2 27.2 MEQ/L (23.0-31.0); ABG pH (ARTERIAL) 7.447 UNITS (7.350-7.450)
[2018-04-10] MEDS: IPRATROPIUM 0.5MG/ALBUTEROL 2.5MG INH SOL UD 3ML (DUONEB)(J7620) NEB ×5 (14:08→20:53)
[2018-04-10] MEDS: HumuLIN R (REGULAR) INSULIN (NovoLIN R) **100U/ML** PER UNIT IV (14:30)
[2018-04-10 14:32] LABS: INFLUENZA A AMPLIFICATION NEGATIVE (NEGATIVE); INFLUENZA B AMPLIFICATION NEGATIVE (NEGATIVE)
[2018-04-10] MEDS: MOXIFLOXACIN HCL 400 MG in APPROPRIATE DILUENT 1 EA IV (15:23)
[2018-04-10 15:26] LABS: C REACTIVE PROTEIN QUANTITATIV < 0.30 MG/DL (0.00-0.30)
[2018-04-10] MEDS ORDERED: ISOVUE-370 76% 100ML VIAL (Q9967) As Ordered (15:38)
[2018-04-10] MEDS ORDERED: IPRATROPIUM 0.5MG/ALBUTEROL 2.5MG INH SOL UD 3ML (DUONEB)(J7620) NEB (15:45)
[2018-04-10] MEDS ORDERED: DEXTROSE 50% 50 ML SYRINGE IV (15:45)
[2018-04-10] MEDS ORDERED: ONDANSETRON 4MG/2ML VIAL (J2405) IV (15:45)
[2018-04-10] MEDS ORDERED: GLUCOSE 4 GM CHEW TABLET PO (15:45)
[2018-04-10] MEDS ORDERED: GLUCAGON FOR INJ 1 MG VIAL (J1610) SC (15:45)
[2018-04-10 17:36] LABS: BEDSIDE GLUCOSE 278 MG/DL (83-110)
[2018-04-10] MEDS: NS 500 ML IV (17:49)
[2018-04-10] MEDS: ENOXAPARIN 60 MG/0.6 ML SYR (J1650) SC (18:16)
[2018-04-10] MEDS: PERCOCET 5MG/325MG TAB PO (18:17)
[2018-04-10] MEDS: HumaLOG INSULIN (NovoLOG) PER UNIT SC ×2 (18:17→20:59)
[2018-04-10 19:25] LABS: CK-MB VALUE MASS 1.1 NG/ML (<3.6); CPK CREATINE PHOSPHOKINASE 36 U/L (26-192); MB/CK RELATIVE INDEX 3.05 (< OR =4); TROPONIN I < 0.02 NG/ML (< 0.10)
[2018-04-10] MEDS: SENOKOT S TAB PO (20:58)
[2018-04-10] MEDS: EZETIMIBE 10 MG TAB (ZETIA) PO (20:58)
[2018-04-10] MEDS: SIMVASTATIN 40 MG TAB PO (20:58)
[2018-04-10] MEDS: guaiFENesin ER 600 MG TAB PO (20:58)
[2018-04-10] MEDS: LOSARTAN 50 MG TAB PO (20:59)
[2018-04-10] MEDS: ADVAIR HFA 230/21MCG INHALER INH (21:00)
[2018-04-10 21:08] LABS: BEDSIDE GLUCOSE 278 MG/DL (83-110)
[2018-04-10] MEDS ORDERED: HEPARIN SOD (PORCINE) 5000 UNITS/ML VIAL SC (22:00)
[2018-04-11] MEDS: methylPREDNISolone INJ 125 MG/2 ML VIAL (J2930) IV ×2 (01:53→14:14)
[2018-04-11] MEDS: IPRATROPIUM 0.5MG/ALBUTEROL 2.5MG INH SOL UD 3ML (DUONEB)(J7620) NEB ×4 (02:51→20:00)
[2018-04-11] MEDS: PERCOCET 5MG/325MG TAB PO ×2 (03:49→15:38)
[2018-04-11] MEDS: LEVOTHYROXINE 75MCG TABLET (0.075MG) PO (05:49)
[2018-04-11] MEDS: ENOXAPARIN 60 MG/0.6 ML SYR (J1650) SC ×2 (05:50→17:23)
[2018-04-11 06:04] LABS: HEMATOCRIT 35.7 % (36.0-47.0); MEAN CORPUSCULAR HEMOGLOBIN 25.8 pg (27.0-33.0); MEAN CORPUSCULAR HGB CONC 31.9 g/dl (32.0-36.5); MEAN CORPUSCULAR VOLUME 80.8 fl (80.0-96.0); RED BLOOD COUNT 4.42 10^6/uL (4.00-5.40); RED CELL DISTRIBUTION WIDTH 13.9 % (11.5-14.5); WHITE BLOOD COUNT 11.6 10^3/uL (4.0-10.0)
[2018-04-11 06:19] LABS: HEMOGLOBIN 11.4 g/dl (12.0-15.5)
[2018-04-11 06:20] LABS: PLATELET COUNT, AUTOMATED 415 10^3/uL (150-450)
[2018-04-11 06:21] LABS: ANION GAP 6 MEQ/L (8-16); BLOOD UREA NITROGEN 19 MG/DL (7-18); C REACTIVE PROTEIN QUANTITATIV < 0.30 MG/DL (0.00-0.30); CALCIUM LEVEL 8.4 MG/DL (8.8-10.2); CARBON DIOXIDE LEVEL 28 MEQ/L (21-32); CHLORIDE LEVEL 105 MEQ/L (98-107); CREATININE FOR GFR 0.84 MG/DL (0.55-1.30); GLOMERULAR FILTRATION RATE > 60.0 (>39); GLUCOSE, FASTING 286 MG/DL (70-100); POTASSIUM SERUM 4.1 MEQ/L (3.5-5.1); SODIUM LEVEL 139 MEQ/L (136-145); T UPTAKE 34 % (30-39); THYROID STIMULATING HORMONE 0.709 uIU/ML (0.358-3.740); THYROXINE (T4) 8.9 UG/DL (4.5-12.0)
[2018-04-11] MEDS: SENOKOT S TAB PO ×2 (07:43→21:58)
[2018-04-11] MEDS: guaiFENesin ER 600 MG TAB PO ×2 (07:43→21:58)
[2018-04-11] MEDS: VITAMIN D 1,000 INTERNATIONAL UNITS TABLET PO (07:43)
[2018-04-11] MEDS: HumaLOG INSULIN (NovoLOG) PER UNIT SC ×4 (07:43→21:59)
[2018-04-11] MEDS: ADVAIR HFA 230/21MCG INHALER INH ×2 (07:59→20:46)
[2018-04-11] MEDS: TIOTROPIUM INHALER/CAPSULE (SPIRIVA) INH (07:59)
[2018-04-11] MEDS ORDERED: hydroCHLOROthiazide 12.5 MG CAPSULE PO (09:00)
[2018-04-11] MEDS: MOXIFLOXACIN HCL 400 MG in APPROPRIATE DILUENT 1 EA IV (14:14)
[2018-04-11 17:04] LABS: BEDSIDE GLUCOSE 291 MG/DL (83-110)
[2018-04-11 20:44] LABS: BEDSIDE GLUCOSE 283 MG/DL (83-110)
[2018-04-11] MEDS: SIMVASTATIN 40 MG TAB PO (21:58)
[2018-04-11] MEDS: LOSARTAN 50 MG TAB PO (21:58)
[2018-04-11] MEDS: EZETIMIBE 10 MG TAB (ZETIA) PO (21:58)
[2018-04-11] MEDS ORDERED: HEPARIN SOD (PORCINE) 5000 UNITS/ML VIAL SC (22:00)
[2018-04-12] MEDS: methylPREDNISolone INJ 125 MG/2 ML VIAL (J2930) IV ×2 (01:21→14:04)
[2018-04-12] MEDS: PERCOCET 5MG/325MG TAB PO ×3 (01:27→21:18)
[2018-04-12] MEDS: IPRATROPIUM 0.5MG/ALBUTEROL 2.5MG INH SOL UD 3ML (DUONEB)(J7620) NEB ×4 (02:31→20:00)
[2018-04-12 06:03] LABS: MEAN CORPUSCULAR HEMOGLOBIN 26.3 pg (27.0-33.0); MEAN CORPUSCULAR HGB CONC 32.4 g/dl (32.0-36.5); MEAN CORPUSCULAR VOLUME 81.3 fl (80.0-96.0); PLATELET COUNT, AUTOMATED 389 10^3/uL (150-450); RED BLOOD COUNT 4.18 10^6/uL (4.00-5.40); RED CELL DISTRIBUTION WIDTH 13.8 % (11.5-14.5); WHITE BLOOD COUNT 14.1 10^3/uL (4.0-10.0)
[2018-04-12] MEDS: ENOXAPARIN 60 MG/0.6 ML SYR (J1650) SC (06:10)
[2018-04-12] MEDS: LEVOTHYROXINE 75MCG TABLET (0.075MG) PO (06:10)
[2018-04-12 06:20] LABS: ANION GAP 6 MEQ/L (8-16); BLOOD UREA NITROGEN 24 MG/DL (7-18); C REACTIVE PROTEIN QUANTITATIV < 0.30 MG/DL (0.00-0.30); CALCIUM LEVEL 8.3 MG/DL (8.8-10.2); CARBON DIOXIDE LEVEL 26 MEQ/L (21-32); CHLORIDE LEVEL 107 MEQ/L (98-107); CREATININE FOR GFR 0.85 MG/DL (0.55-1.30); GLOMERULAR FILTRATION RATE > 60.0 (>39); GLUCOSE, FASTING 268 MG/DL (70-100); MAGNESIUM LEVEL 2.2 MG/DL (1.8-2.4); POTASSIUM SERUM 4.2 MEQ/L (3.5-5.1); SODIUM LEVEL 139 MEQ/L (136-145)
[2018-04-12] MEDS: NYSTATIN 500,000 U/5 ML SUSP UDC SS ×2 (08:04→21:18)
[2018-04-12] MEDS: HumaLOG INSULIN (NovoLOG) PER UNIT SC ×4 (08:04→21:18)
[2018-04-12] MEDS: VITAMIN D 1,000 INTERNATIONAL UNITS TABLET PO (08:04)
[2018-04-12] MEDS: guaiFENesin ER 600 MG TAB PO ×2 (08:04→21:16)
[2018-04-12] MEDS: SENOKOT S TAB PO ×2 (08:04→21:17)
[2018-04-12] MEDS: ADVAIR HFA 230/21MCG INHALER INH ×2 (08:54→20:43)
[2018-04-12] MEDS: TIOTROPIUM INHALER/CAPSULE (SPIRIVA) INH (08:54)
[2018-04-12 11:45] LABS: BEDSIDE GLUCOSE 353 MG/DL (83-110)
[2018-04-12] MEDS: MOXIFLOXACIN HCL 400 MG in APPROPRIATE DILUENT 1 EA IV (14:04)
[2018-04-12 16:58] LABS: BEDSIDE GLUCOSE 224 MG/DL (83-110)
[2018-04-12 19:40] LABS: BEDSIDE GLUCOSE 310 MG/DL (83-110)
[2018-04-12 20:30] LABS: BEDSIDE GLUCOSE 290 MG/DL (83-110)
[2018-04-12] MEDS: LOSARTAN 50 MG TAB PO (21:17)
[2018-04-12] MEDS: EZETIMIBE 10 MG TAB (ZETIA) PO (21:17)
[2018-04-12] MEDS: SIMVASTATIN 40 MG TAB PO (21:17)
[2018-04-12] MEDS: ACETAMINOPHEN TAB 650MG DOSE (2X325MG) PO (22:11)
[2018-04-13] MEDS: IPRATROPIUM 0.5MG/ALBUTEROL 2.5MG INH SOL UD 3ML (DUONEB)(J7620) NEB ×2 (01:10→08:00)
[2018-04-13] MEDS: methylPREDNISolone INJ 125 MG/2 ML VIAL (J2930) IV (02:30)
[2018-04-13] MEDS: LEVOTHYROXINE 75MCG TABLET (0.075MG) PO (06:04)
[2018-04-13 06:25] LABS: HEMATOCRIT 33.9 % (36.0-47.0); HEMOGLOBIN 10.8 g/dl (12.0-15.5); MEAN CORPUSCULAR HEMOGLOBIN 25.8 pg (27.0-33.0); MEAN CORPUSCULAR HGB CONC 31.9 g/dl (32.0-36.5); MEAN CORPUSCULAR VOLUME 81.1 fl (80.0-96.0); PLATELET COUNT, AUTOMATED 398 10^3/uL (150-450); RED BLOOD COUNT 4.18 10^6/uL (4.00-5.40); RED CELL DISTRIBUTION WIDTH 13.8 % (11.5-14.5)
[2018-04-13 06:39] LABS: BEDSIDE GLUCOSE 347 MG/DL (83-110)
[2018-04-13 06:47] LABS: ANION GAP 6 MEQ/L (8-16); BLOOD UREA NITROGEN 28 MG/DL (7-18); C REACTIVE PROTEIN QUANTITATIV < 0.30 MG/DL (0.00-0.30); CALCIUM LEVEL 8.1 MG/DL (8.8-10.2); CARBON DIOXIDE LEVEL 25 MEQ/L (21-32); CHLORIDE LEVEL 107 MEQ/L (98-107); CREATININE FOR GFR 0.92 MG/DL (0.55-1.30); GLOMERULAR FILTRATION RATE > 60.0 (>39); GLUCOSE, FASTING 315 MG/DL (70-100); MAGNESIUM LEVEL 2.2 MG/DL (1.8-2.4); POTASSIUM SERUM 4.5 MEQ/L (3.5-5.1); SODIUM LEVEL 138 MEQ/L (136-145)
[2018-04-13] MEDS: ADVAIR HFA 230/21MCG INHALER INH (08:14)
[2018-04-13] MEDS: TIOTROPIUM INHALER/CAPSULE (SPIRIVA) INH (08:14)
[2018-04-13] MEDS: PERCOCET 5MG/325MG TAB PO (08:44)
[2018-04-13] MEDS: guaiFENesin ER 600 MG TAB PO (08:45)
[2018-04-13] MEDS: NYSTATIN 500,000 U/5 ML SUSP UDC SS (08:45)
[2018-04-13] MEDS: HumaLOG INSULIN (NovoLOG) PER UNIT SC ×2 (08:45→11:47)
[2018-04-13] MEDS: SENOKOT S TAB PO (08:45)
[2018-04-13] MEDS: VITAMIN D 1,000 INTERNATIONAL UNITS TABLET PO (08:45)
[2018-04-13] MEDS: ENOXAPARIN 40 MG/0.4 ML SYRINGE (J1650) SC (08:46)
[2018-04-13] MEDS: predniSONE 10 MG TAB PO (11:46)
[2018-04-13 11:58] LABS: BEDSIDE GLUCOSE 366 MG/DL (83-110)
== END 2018-04-13 13:10 | disposition home health service (06) | DRG 194 ==
LOC: M ED 13:08 → M ED INP 15:45 → M MSPAV 17:12
DX: J18.9 Pneumonia, unspecified organism (principal); J96.11 Chronic respiratory failure with hypoxia; J44.1 Chronic obstructive pulmonary disease with (acute) exacerbation; J44.0 Chronic obstructive pulmonary disease with (acute) lower respiratory infection; E11.65 Type 2 diabetes mellitus with hyperglycemia; I10 Essential (primary) hypertension; E78.5 Hyperlipidemia, unspecified; E03.9 Hypothyroidism, unspecified; R91.1 Solitary pulmonary nodule; Z88.2 Allergy status to sulfonamides; Z88.5 Allergy status to narcotic agent; Z88.1 Allergy status to other antibiotic agents; Z88.8 Allergy status to other drugs, medicaments and biological substances; Z99.81 Dependence on supplemental oxygen; Z98.41 Cataract extraction status, right eye; Z98.42 Cataract extraction status, left eye; Z79.84 Long term (current) use of oral hypoglycemic drugs; Z79.52 Long term (current) use of systemic steroids; Z79.899 Other long term (current) drug therapy

== ENCOUNTER 2018-04-14 11:21 | Emergency (ER) | payer MEDICARE, OTHER ==
[2018-04-14 11:43] LABS: ABG BASE EXCESS 1.9 (-2.0-2.0); ABG HCO3 27.6 MEQ/L (22.0-26.0); ABG O2 SATURATION 95.5 % (95.0-99.0); ABG PARTIAL PRESSURE O2 74.7 mmHg (75.0-100.0); ABG STANDARD HCO3 26.1 MEQ/L (22.0-26.0); ABG pH (ARTERIAL) 7.386 UNITS (7.350-7.450)
[2018-04-14 11:52] LABS: BASO # 0.1 10^3/uL (0.0-0.2); BASO % 0.3 % (0.0-1.0); EOS # 0.2 10^3/uL (0.0-0.50); EOS % 0.9 % (0.0-3.0); HEMATOCRIT 41.2 % (36.0-47.0); HEMOGLOBIN 13.2 g/dl (12.0-15.5); IMMATURE GRANULOCYTE % 1.6 % (0-3.0); LYMPH % 25.6 % (24.0-44.0); MEAN CORPUSCULAR HEMOGLOBIN 25.8 pg (27.0-33.0); MEAN CORPUSCULAR VOLUME 80.5 fl (80.0-96.0); MONO # 1.8 10^3/uL (0.0-0.8); MONO % 8.8 % (0.0-5.0); NEUTROPHILS # 12.8 10^3/uL (1.8-7.7); NEUTROPHILS % 62.8 % (36.0-66.0); PLATELET COUNT, AUTOMATED 453 10^3/uL (150-450); RED BLOOD COUNT 5.12 10^6/uL (4.00-5.40); RED CELL DISTRIBUTION WIDTH 13.9 % (11.5-14.5)
[2018-04-14 11:53] LABS: LYMPH # 5.2 10^3/uL (1.5-4.5); POSITIVE DIFF POS FLAG; WHITE BLOOD COUNT 20.4 10^3/uL (4.0-10.0)
[2018-04-14 12:21] LABS: ALBUMIN 3.3 GM/DL (3.2-5.2); ALBUMIN/GLOBULIN RATIO 0.89 (1.00-1.93); ALKALINE PHOSPHATASE 44 U/L (45-117); ALT/SGPT 31 U/L (12-78); ANION GAP 5 MEQ/L (8-16); AST/SGOT 19 U/L (7-37); BILIRUBIN,DIRECT < 0.1 MG/DL (0.0-0.2); BILIRUBIN,TOTAL 0.4 MG/DL (0.2-1.0); BLOOD UREA NITROGEN 19 MG/DL (7-18); CALCIUM LEVEL 8.1 MG/DL (8.8-10.2); CARBON DIOXIDE LEVEL 29 MEQ/L (21-32); CHLORIDE LEVEL 106 MEQ/L (98-107); CREATININE FOR GFR 0.77 MG/DL (0.55-1.30); GLOMERULAR FILTRATION RATE > 60.0 (>39); GLUCOSE, FASTING 173 MG/DL (70-100); NT-PRO BNP 1897 PG/ML (<450); POTASSIUM SERUM 3.5 MEQ/L (3.5-5.1); SODIUM LEVEL 140 MEQ/L (136-145)
[2018-04-14 12:21] LABS: LACTIC ACID SEPSIS PROTOCOL 1.7 MMOL/L (0.4-2.0)
[2018-04-14] MEDS: IPRATROPIUM 0.5MG/ALBUTEROL 2.5MG INH SOL UD 3ML (DUONEB)(J7620) NEB ×2 (12:28→12:29)
[2018-04-14] MEDS: methylPREDNISolone INJ 125 MG/2 ML VIAL (J2930) IV (12:33)
[2018-04-14 12:37] LABS: INFLUENZA A AMPLIFICATION NEGATIVE (NEGATIVE); INFLUENZA B AMPLIFICATION NEGATIVE (NEGATIVE)
[2018-04-14] MEDS: FUROSEMIDE 20 MG TAB PO (13:33)
[2018-04-14] MEDS: NORCO, ANEXSIA 5/325MG TABLET (HYDROcodone/ACETAMINOPHEN) PO (13:33)
== END 2018-04-14 14:52 | disposition home or self-care (01) ==
LOC: M ED 11:21
DX: J44.1 Chronic obstructive pulmonary disease with (acute) exacerbation (principal); R00.0 Tachycardia, unspecified; I10 Essential (primary) hypertension; E11.9 Type 2 diabetes mellitus without complications; F17.200 Nicotine dependence, unspecified, uncomplicated; Z88.0 Allergy status to penicillin; Z88.5 Allergy status to narcotic agent; Z88.2 Allergy status to sulfonamides; Z88.8 Allergy status to other drugs, medicaments and biological substances; Z79.899 Other long term (current) drug therapy; Z79.52 Long term (current) use of systemic steroids; Z79.51 Long term (current) use of inhaled steroids; Z79.84 Long term (current) use of oral hypoglycemic drugs
CPT/HCPCS: J2930

== ENCOUNTER 2018-07-02 19:52 | Inpatient (IN) | payer MEDICARE, OTHER ==
[2018-07-02] MEDS: dexameTHASONE 20 MG/5 ML VIAL (J1100) IV (20:23)
[2018-07-02] MEDS: ALBUTEROL SULFATE 2.5 MG/0.5 ML INH NEB SOLN NEB (20:25)
[2018-07-02 22:02] LABS: VENOUS HCO3 34.9 MEQ/L (23.0-27.0); VENOUS O2 SATURATION 95.4 % (60.0-80.0); VENOUS PARTIAL PRESSURE CO2 59.9 mmHg (38.0-50.0); VENOUS PARTIAL PRESSURE O2 77.9 mmHg (30.0-50.0); VENOUS PH 7.383 UNITS (7.330-7.430); VENOUS STANDARD HCO3 31.7 MEQ/L; VENOUS TOTAL CO2 36.7 MEQ/L (24.0-28.0)
[2018-07-02 22:06] LABS: HEMATOCRIT 37.9 % (36.0-47.0); HEMOGLOBIN 11.9 g/dl (12.0-15.5); MEAN CORPUSCULAR HEMOGLOBIN 24.1 pg (27.0-33.0); MEAN CORPUSCULAR HGB CONC 31.4 g/dl (32.0-36.5); MEAN CORPUSCULAR VOLUME 76.7 fl (80.0-96.0); PLATELET COUNT, AUTOMATED 662 10^3/uL (150-450); RED BLOOD COUNT 4.94 10^6/uL (4.00-5.40); RED CELL DISTRIBUTION WIDTH 13.8 % (11.5-14.5)
[2018-07-02 22:08] LABS: POSITIVE DIFF POS FLAG; POSITIVE MORPH POS FLAG; WHITE BLOOD COUNT 25.9 10^3/uL (4.0-10.0)
[2018-07-02 22:09] LABS: ADD MANUAL DIFFER YES; DIFF SLIDE NUMBER 151
[2018-07-02 22:26] LABS: ANION GAP 8 MEQ/L (8-16); BLOOD UREA NITROGEN 8 MG/DL (7-18); CALCIUM LEVEL 8.7 MG/DL (8.8-10.2); CARBON DIOXIDE LEVEL 35 MEQ/L (21-32); CHLORIDE LEVEL 93 MEQ/L (98-107); CREATININE FOR GFR 0.75 MG/DL (0.55-1.30); GLOMERULAR FILTRATION RATE > 60.0 (>39); GLUCOSE, FASTING 150 MG/DL (70-100); POTASSIUM SERUM 3.4 MEQ/L (3.5-5.1); SODIUM LEVEL 136 MEQ/L (136-145)
[2018-07-02 22:37] LABS: ATYPICAL LYMPH 5 % (0-5); BASOPHILS 3 % (0-4); EOSINOPHILS 2 % (0-5); LYMPHOCYTES 29 % (16-52); MONOCYTES 3 % (0-8); NEUTROPHILS 58 % (35-75)
[2018-07-02 22:38] LABS: MICROCYTOSIS 1+; PLATELET ESTIMATE INCREASED (NORMAL)
[2018-07-02] MEDS: DOCUSATE SODIUM 100 MG CAP PO (23:56)
[2018-07-03] MEDS ORDERED: ALBUTEROL SULFATE 2.5 MG/0.5 ML INH NEB SOLN INH
[2018-07-03] MEDS: BUDESONIDE 0.5 MG/2 ML INHALATION SUSPENSION INH ×3 (00:26→21:16)
[2018-07-03 00:38] LABS: CPK CREATINE PHOSPHOKINASE 40 U/L (26-192); TROPONIN I < 0.02 NG/ML (< 0.10)
[2018-07-03 00:39] LABS: CK-MB VALUE MASS < 1.0 NG/ML (<3.6)
[2018-07-03] MEDS: IPRATROPIUM 0.5MG/ALBUTEROL 2.5MG INH SOL UD 3ML (DUONEB)(J7620) NEB ×4 (00:46→21:16)
[2018-07-03] MEDS: methylPREDNISolone INJ 125 MG/2 ML VIAL (J2930) IV ×4 (01:17→21:59)
[2018-07-03] MEDS: metFORMIN (GLUCOPHAGE) 500 MG TAB PO (01:17)
[2018-07-03] MEDS: LOSARTAN 50 MG TAB PO ×2 (01:18→21:57)
[2018-07-03] MEDS: SIMVASTATIN 40 MG TAB PO ×2 (01:18→21:57)
[2018-07-03] MEDS: EZETIMIBE 10 MG TAB (ZETIA) PO ×2 (01:18→21:57)
[2018-07-03] MEDS: guaiFENesin ER 600 MG TAB PO ×3 (01:18→21:56)
[2018-07-03] MEDS: LevoFLOXacin IV 500 MG in APPROPRIATE DILUENT 1 EA IV (01:18)
[2018-07-03] MEDS ORDERED: PNEUMOCOCCAL VACCINE 0.5ML SYRINGE(90732) PNEUMOVAX 23 IM (02:30)
[2018-07-03] MEDS: ACETAMINOPHEN TAB 650MG DOSE (2X325MG) PO (05:36)
[2018-07-03] MEDS: HEPARIN SOD (PORCINE) 5000 UNITS/ML VIAL SC ×3 (05:36→21:56)
[2018-07-03 06:08] LABS: HEMATOCRIT 39.5 % (36.0-47.0); HEMOGLOBIN 12.2 g/dl (12.0-15.5); MEAN CORPUSCULAR HGB CONC 30.9 g/dl (32.0-36.5); MEAN CORPUSCULAR VOLUME 77.6 fl (80.0-96.0); PLATELET COUNT, AUTOMATED 643 10^3/uL (150-450); RED BLOOD COUNT 5.09 10^6/uL (4.00-5.40); RED CELL DISTRIBUTION WIDTH 13.6 % (11.5-14.5)
[2018-07-03 06:18] LABS: ADD MANUAL DIFFER YES; DIFF SLIDE NUMBER 68; POSITIVE DIFF POS FLAG; WHITE BLOOD COUNT 20.2 10^3/uL (4.0-10.0)
[2018-07-03 06:49] LABS: LYMPHOCYTES 39 % (16-52); MICROCYTOSIS 1+; MONOCYTES 1 % (0-8); NEUTROPHILS 60 % (35-75); PLATELET ESTIMATE INCREASED (NORMAL)
[2018-07-03 07:19] LABS: ANION GAP 9 MEQ/L (8-16); BLOOD UREA NITROGEN 11 MG/DL (7-18); CALCIUM LEVEL 8.8 MG/DL (8.8-10.2); CARBON DIOXIDE LEVEL 32 MEQ/L (21-32); CHLORIDE LEVEL 91 MEQ/L (98-107); CPK CREATINE PHOSPHOKINASE 39 U/L (26-192); FREE THYROXINE INDEX 4.1 % (1.3-4.8); GLOMERULAR FILTRATION RATE 57.4 (>39); GLUCOSE, FASTING 240 MG/DL (70-100); POTASSIUM SERUM 3.3 MEQ/L (3.5-5.1); SODIUM LEVEL 132 MEQ/L (136-145); T UPTAKE 36 % (30-39); THYROXINE (T4) 11.4 UG/DL (4.5-12.0); TROPONIN I < 0.02 NG/ML (< 0.10)
[2018-07-03 07:25] LABS: CK-MB VALUE MASS < 1.0 NG/ML (<3.6); MB/CK RELATIVE INDEX 2.56 (< OR =4); THYROID STIMULATING HORMONE 0.589 uIU/ML (0.358-3.740)
[2018-07-03] MEDS: PANTOPRAZOLE 40MG TAB (PROTONIX) PO (08:14)
[2018-07-03] MEDS: hydroCHLOROthiazide 12.5 MG CAPSULE PO (08:14)
[2018-07-03] MEDS: LEVOTHYROXINE 75MCG TABLET (0.075MG) PO (08:14)
[2018-07-03] MEDS: VITAMIN D 1,000 INTERNATIONAL UNITS TABLET PO (08:14)
[2018-07-03] MEDS: glipiZIDE XL 5 MG TABCR PO (08:14)
[2018-07-03] MEDS: DOCUSATE SODIUM 100 MG CAP PO ×2 (08:14→21:56)
[2018-07-03] MEDS: THEOPHYLLINE (THEO-24) 100MG SR **CAPSULE PO (08:15)
[2018-07-03 08:43] LABS: ABG BASE EXCESS 6.9 (-2.0-2.0); ABG O2 SATURATION 91.2 % (95.0-99.0); ABG PARTIAL PRESSURE CO2 47.6 mmHg (35.0-45.0); ABG PARTIAL PRESSURE O2 58.6 mmHg (75.0-100.0); ABG STANDARD HCO3 30.6 MEQ/L (22.0-26.0); ABG TOTAL CO2 33.5 MEQ/L (23.0-31.0); ABG pH (ARTERIAL) 7.446 UNITS (7.350-7.450)
[2018-07-03] MEDS: TIOTROPIUM INHALER/CAPSULE (SPIRIVA) INH (08:43)
[2018-07-03] MEDS ORDERED: DEXTROSE 50% 50 ML SYRINGE IV (09:00)
[2018-07-03] MEDS ORDERED: GLUCAGON FOR INJ 1 MG VIAL (J1610) SC (09:00)
[2018-07-03] MEDS ORDERED: GLUCOSE 4 GM CHEW TABLET PO (09:00)
[2018-07-03] MEDS: POTASSIUM CHLORIDE 10 MEQ SR TABLET PO (09:18)
[2018-07-03] MEDS: PERCOCET 5MG/325MG TAB PO ×2 (09:22→17:32)
[2018-07-03 12:13] LABS: BEDSIDE GLUCOSE 275 MG/DL (83-110)
[2018-07-03] MEDS: HumaLOG INSULIN (NovoLOG) PER UNIT SC ×3 (12:13→21:00)
[2018-07-03 15:28] LABS: CK-MB VALUE MASS 1.6 NG/ML (<3.6); CPK CREATINE PHOSPHOKINASE 54 U/L (26-192); MB/CK RELATIVE INDEX 2.96 (< OR =4); TROPONIN I < 0.02 NG/ML (< 0.10)
[2018-07-03 17:01] LABS: BEDSIDE GLUCOSE 277 MG/DL (83-110)
[2018-07-03 20:34] LABS: BEDSIDE GLUCOSE 217 MG/DL (83-110)
[2018-07-03] MEDS: FORMOTEROL FUMARATE 20 MCG/2 ML INHALATION SOLUTION (PERFOROMIST) INH (21:16)
[2018-07-04] MEDS: LevoFLOXacin IV 500 MG in APPROPRIATE DILUENT 1 EA IV (00:35)
[2018-07-04] MEDS: IPRATROPIUM 0.5MG/ALBUTEROL 2.5MG INH SOL UD 3ML (DUONEB)(J7620) NEB ×4 (01:20→20:00)
[2018-07-04] MEDS: methylPREDNISolone INJ 125 MG/2 ML VIAL (J2930) IV ×4 (01:26→21:31)
[2018-07-04] MEDS: HEPARIN SOD (PORCINE) 5000 UNITS/ML VIAL SC ×3 (06:00→21:37)
[2018-07-04] MEDS: TIOTROPIUM INHALER/CAPSULE (SPIRIVA) INH (07:25)
[2018-07-04] MEDS: FORMOTEROL FUMARATE 20 MCG/2 ML INHALATION SOLUTION (PERFOROMIST) INH ×2 (07:26→20:27)
[2018-07-04] MEDS: BUDESONIDE 0.5 MG/2 ML INHALATION SUSPENSION INH ×2 (07:26→20:27)
[2018-07-04 07:35] LABS: HEMATOCRIT 36.3 % (36.0-47.0); HEMOGLOBIN 11.5 g/dl (12.0-15.5); MEAN CORPUSCULAR HEMOGLOBIN 24.3 pg (27.0-33.0); MEAN CORPUSCULAR HGB CONC 31.7 g/dl (32.0-36.5); MEAN CORPUSCULAR VOLUME 76.6 fl (80.0-96.0); PLATELET COUNT, AUTOMATED 730 10^3/uL (150-450); RED BLOOD COUNT 4.74 10^6/uL (4.00-5.40); RED CELL DISTRIBUTION WIDTH 13.6 % (11.5-14.5)
[2018-07-04 07:36] LABS: POSITIVE DIFF POS FLAG; WHITE BLOOD COUNT 25.7 10^3/uL (4.0-10.0)
[2018-07-04 07:37] LABS: ADD MANUAL DIFFER YES; DIFF SLIDE NUMBER 63
[2018-07-04 07:52] LABS: ANION GAP 11 MEQ/L (8-16); BLOOD UREA NITROGEN 23 MG/DL (7-18); CARBON DIOXIDE LEVEL 31 MEQ/L (21-32); CHLORIDE LEVEL 94 MEQ/L (98-107); GLOMERULAR FILTRATION RATE 51.4 (>39); GLUCOSE, FASTING 207 MG/DL (70-100); POTASSIUM SERUM 3.5 MEQ/L (3.5-5.1); SODIUM LEVEL 136 MEQ/L (136-145); THEOPHYLLINE LEVEL 9.1 UG/ML (10.0-20.0)
[2018-07-04 09:01] LABS: ANISOCYTOSIS 1+; ATYPICAL LYMPH 2 % (0-5); LYMPHOCYTES 22 % (16-52); MICROCYTOSIS 1+; MONOCYTES 6 % (0-8); NEUTROPHILS 70 % (35-75); PLATELET ESTIMATE INCREASED (NORMAL)
[2018-07-04] MEDS: hydroCHLOROthiazide 12.5 MG CAPSULE PO (09:39)
[2018-07-04] MEDS: PERCOCET 5MG/325MG TAB PO ×2 (09:39→16:58)
[2018-07-04] MEDS: THEOPHYLLINE (THEO-24) 100MG SR **CAPSULE PO ×2 (09:39→21:32)
[2018-07-04] MEDS: HumaLOG INSULIN (NovoLOG) PER UNIT SC ×4 (09:40→21:37)
[2018-07-04] MEDS: POTASSIUM CHLORIDE 10 MEQ SR TABLET PO (09:40)
[2018-07-04] MEDS: PANTOPRAZOLE 40MG TAB (PROTONIX) PO (09:41)
[2018-07-04] MEDS: guaiFENesin ER 600 MG TAB PO ×2 (09:41→21:31)
[2018-07-04] MEDS: DOCUSATE SODIUM 100 MG CAP PO ×2 (09:41→21:32)
[2018-07-04] MEDS: VITAMIN D 1,000 INTERNATIONAL UNITS TABLET PO (09:42)
[2018-07-04] MEDS: LEVOTHYROXINE 75MCG TABLET (0.075MG) PO (09:42)
[2018-07-04] MEDS: glipiZIDE XL 5 MG TABCR PO (09:43)
[2018-07-04 11:52] LABS: BEDSIDE GLUCOSE 204 MG/DL (83-110)
[2018-07-04 16:36] LABS: BEDSIDE GLUCOSE 243 MG/DL (83-110)
[2018-07-04] MEDS: EZETIMIBE 10 MG TAB (ZETIA) PO (21:31)
[2018-07-04] MEDS: LOSARTAN 50 MG TAB PO (21:35)
[2018-07-04] MEDS: SIMVASTATIN 40 MG TAB PO (21:36)
[2018-07-04 22:22] LABS: BEDSIDE GLUCOSE 339 MG/DL (83-110)
[2018-07-05] MEDS: IPRATROPIUM 0.5MG/ALBUTEROL 2.5MG INH SOL UD 3ML (DUONEB)(J7620) NEB (00:49)
[2018-07-05] MEDS: LevoFLOXacin IV 500 MG in APPROPRIATE DILUENT 1 EA IV (01:04)
[2018-07-05] MEDS: methylPREDNISolone INJ 125 MG/2 ML VIAL (J2930) IV ×4 (02:15→20:57)
[2018-07-05] MEDS: PERCOCET 5MG/325MG TAB PO ×2 (05:14→15:47)
[2018-07-05] MEDS: HEPARIN SOD (PORCINE) 5000 UNITS/ML VIAL SC ×3 (05:15→20:59)
[2018-07-05 07:03] LABS: HEMOGLOBIN 11.5 g/dl (12.0-15.5); MEAN CORPUSCULAR HEMOGLOBIN 24.2 pg (27.0-33.0); MEAN CORPUSCULAR HGB CONC 31.9 g/dl (32.0-36.5); MEAN CORPUSCULAR VOLUME 75.8 fl (80.0-96.0); PLATELET COUNT, AUTOMATED 757 10^3/uL (150-450); RED BLOOD COUNT 4.75 10^6/uL (4.00-5.40); RED CELL DISTRIBUTION WIDTH 13.6 % (11.5-14.5)
[2018-07-05 07:21] LABS: ANION GAP 9 MEQ/L (8-16); BLOOD UREA NITROGEN 31 MG/DL (7-18); CALCIUM LEVEL 8.7 MG/DL (8.8-10.2); CARBON DIOXIDE LEVEL 30 MEQ/L (21-32); CHLORIDE LEVEL 95 MEQ/L (98-107); CREATININE FOR GFR 1.19 MG/DL (0.55-1.30); GLOMERULAR FILTRATION RATE 46.9 (>39); GLUCOSE, FASTING 334 MG/DL (70-100); POTASSIUM SERUM 4.1 MEQ/L (3.5-5.1); SODIUM LEVEL 134 MEQ/L (136-145)
[2018-07-05] MEDS: FORMOTEROL FUMARATE 20 MCG/2 ML INHALATION SOLUTION (PERFOROMIST) INH ×2 (07:42→20:35)
[2018-07-05] MEDS: BUDESONIDE 0.5 MG/2 ML INHALATION SUSPENSION INH ×2 (07:42→20:35)
[2018-07-05] MEDS: TIOTROPIUM INHALER/CAPSULE (SPIRIVA) INH (07:43)
[2018-07-05] MEDS ORDERED: MOM 30ML SUSPENSION UDC PO (07:45)
[2018-07-05] MEDS ORDERED: LEVALBUTEROL 1.25 MG/0.5 ML CONCENTRATE NEB INH (07:45)
[2018-07-05 07:58] LABS: ADD MANUAL DIFFER YES; DIFF SLIDE NUMBER 42; POSITIVE DIFF POS FLAG; POSITIVE MORPH POS FLAG; WHITE BLOOD COUNT 26.1 10^3/uL (4.0-10.0)
[2018-07-05 08:00] LABS: EOSINOPHILS 1 % (0-5); LYMPHOCYTES 26 % (16-52); MONOCYTES 6 % (0-8); NEUTROPHILS 67 % (35-75)
[2018-07-05] MEDS: LEVALBUTEROL 1.25 MG/0.5 ML CONCENTRATE NEB INH ×5 (08:00→23:46)
[2018-07-05 08:02] LABS: ANISOCYTOSIS 1+; PLATELET ESTIMATE INCREASED (NORMAL)
[2018-07-05] MEDS: VITAMIN D 1,000 INTERNATIONAL UNITS TABLET PO (08:46)
[2018-07-05] MEDS: hydroCHLOROthiazide 12.5 MG CAPSULE PO (08:46)
[2018-07-05] MEDS: glipiZIDE XL 5 MG TABCR PO (08:46)
[2018-07-05] MEDS: LEVOTHYROXINE 75MCG TABLET (0.075MG) PO (08:46)
[2018-07-05] MEDS: HumaLOG INSULIN (NovoLOG) PER UNIT SC ×4 (08:47→20:59)
[2018-07-05] MEDS: PNEUMOCOCCAL VACCINE 0.5ML SYRINGE(90732) PNEUMOVAX 23 IM (10:23)
[2018-07-05 12:27] LABS: BEDSIDE GLUCOSE 370 MG/DL (83-110)
[2018-07-05 16:14] LABS: BEDSIDE GLUCOSE 273 MG/DL (83-110)
[2018-07-05 20:34] LABS: BEDSIDE GLUCOSE 413 MG/DL (83-110)
[2018-07-05] MEDS: THEOPHYLLINE (THEO-24) 100MG SR **CAPSULE PO (20:57)
[2018-07-05] MEDS: SIMVASTATIN 40 MG TAB PO (20:58)
[2018-07-05] MEDS: LOSARTAN 50 MG TAB PO (20:58)
[2018-07-05] MEDS: EZETIMIBE 10 MG TAB (ZETIA) PO (20:58)
[2018-07-06] MEDS: LevoFLOXacin IV 500 MG in APPROPRIATE DILUENT 1 EA IV (00:01)
[2018-07-06] MEDS ORDERED: diphenhydrAMINE 25 MG CAP As Ordered (01:02)
[2018-07-06] MEDS: diphenhydrAMINE 25 MG CAP PO ×2 (01:03→01:36)
[2018-07-06] MEDS ORDERED: PANTOPRAZOLE 40MG INJ (PROTONIX) (C9113) IV (01:15)
[2018-07-06] MEDS: methylPREDNISolone INJ 125 MG/2 ML VIAL (J2930) IV (01:37)
[2018-07-06] MEDS: PANTOPRAZOLE 40MG INJ (PROTONIX) (C9113) IV (01:37)
[2018-07-06 02:01] LABS: CK-MB VALUE MASS 1.8 NG/ML (<3.6); CPK CREATINE PHOSPHOKINASE 91 U/L (26-192); MB/CK RELATIVE INDEX 1.97 (< OR =4); TROPONIN I < 0.02 NG/ML (< 0.10)
[2018-07-06] MEDS: LEVALBUTEROL 1.25 MG/0.5 ML CONCENTRATE NEB INH ×5 (04:00→19:54)
[2018-07-06] MEDS: HEPARIN SOD (PORCINE) 5000 UNITS/ML VIAL SC (05:42)
[2018-07-06 06:57] LABS: HEMATOCRIT 37.3 % (36.0-47.0); HEMOGLOBIN 11.7 g/dl (12.0-15.5); MEAN CORPUSCULAR HEMOGLOBIN 24.2 pg (27.0-33.0); MEAN CORPUSCULAR HGB CONC 31.4 g/dl (32.0-36.5); MEAN CORPUSCULAR VOLUME 77.2 fl (80.0-96.0); PLATELET COUNT, AUTOMATED 643 10^3/uL (150-450); RED BLOOD COUNT 4.83 10^6/uL (4.00-5.40); RED CELL DISTRIBUTION WIDTH 13.7 % (11.5-14.5)
[2018-07-06 06:59] LABS: POSITIVE DIFF POS FLAG; POSITIVE MORPH POS FLAG; WHITE BLOOD COUNT 23.4 10^3/uL (4.0-10.0)
[2018-07-06 07:00] LABS: ADD MANUAL DIFFER YES; DIFF SLIDE NUMBER 35
[2018-07-06 07:11] LABS: ANION GAP 5 MEQ/L (8-16); BLOOD UREA NITROGEN 29 MG/DL (7-18); CALCIUM LEVEL 8.4 MG/DL (8.8-10.2); CARBON DIOXIDE LEVEL 33 MEQ/L (21-32); CHLORIDE LEVEL 97 MEQ/L (98-107); CREATININE FOR GFR 1.02 MG/DL (0.55-1.30); GLOMERULAR FILTRATION RATE 56.1 (>39); GLUCOSE, FASTING 298 MG/DL (70-100); POTASSIUM SERUM 4.2 MEQ/L (3.5-5.1); SODIUM LEVEL 135 MEQ/L (136-145)
[2018-07-06] MEDS: FORMOTEROL FUMARATE 20 MCG/2 ML INHALATION SOLUTION (PERFOROMIST) INH ×2 (07:31→19:54)
[2018-07-06] MEDS: BUDESONIDE 0.5 MG/2 ML INHALATION SUSPENSION INH ×2 (07:31→19:54)
[2018-07-06] MEDS: TIOTROPIUM INHALER/CAPSULE (SPIRIVA) INH (07:32)
[2018-07-06] MEDS ORDERED: NITROGLYCERIN 0.4 MG SUBL TABLET SL (08:00)
[2018-07-06] MEDS: HumaLOG INSULIN (NovoLOG) PER UNIT SC ×4 (08:01→20:48)
[2018-07-06] MEDS: LEVOTHYROXINE 75MCG TABLET (0.075MG) PO (08:01)
[2018-07-06] MEDS: VITAMIN D 1,000 INTERNATIONAL UNITS TABLET PO (08:02)
[2018-07-06] MEDS: glipiZIDE XL 5 MG TABCR PO (08:02)
[2018-07-06] MEDS: hydroCHLOROthiazide 12.5 MG CAPSULE PO (08:02)
[2018-07-06] MEDS: predniSONE 20 MG TAB PO ×3 (08:02→20:46)
[2018-07-06 08:09] LABS: BANDS 1 % (< 11); EOSINOPHILS 6 % (0-5); LYMPHOCYTES 36 % (16-52); MONOCYTES 3 % (0-8); MYELOCYTES 1 % (0-0); NEUTROPHILS 53 % (35-75); PLATELET ESTIMATE INCREASED (NORMAL)
[2018-07-06 08:10] LABS: ANISOCYTOSIS 1+; POIKILOCYTOSIS 1+
[2018-07-06] MEDS: NITROGLYCERIN 0.4 MG SUBL TABLET SL (08:10)
[2018-07-06] MEDS ORDERED: ISOVUE-370 76% 100ML VIAL (Q9967) As Ordered (08:20)
[2018-07-06 08:32] LABS: CK-MB VALUE MASS 1.1 NG/ML (<3.6); TROPONIN I < 0.02 NG/ML (< 0.10)
[2018-07-06] MEDS ORDERED: HEPARIN SOD (PORCINE) 5000 UNITS/ML VIAL IV (10:00)
[2018-07-06] MEDS: HEPARIN DRIP 25,000 UNITS in APPROPRIATE DILUENT 1 EA IV (11:14)
[2018-07-06 11:26] LABS: BEDSIDE GLUCOSE 314 MG/DL (83-110)
[2018-07-06 11:33] LABS: CPK CREATINE PHOSPHOKINASE 68 U/L (26-192); MB/CK RELATIVE INDEX 1.61 (< OR =4)
[2018-07-06] MEDS: VANCOMYCIN HCL 500 MG in D5W MINI-BAG PLUS 100 ML IV (13:53)
[2018-07-06] MEDS: HEPARIN SOD (PORCINE) 5000 UNITS/ML VIAL IV (16:14)
[2018-07-06 16:41] LABS: BEDSIDE GLUCOSE 432 MG/DL (83-110)
[2018-07-06] MEDS: LACTOBACILLUS ACIDOPHILUS CAP (BACID) PO (17:26)
[2018-07-06] MEDS: WARFARIN SOD 5 MG TAB PO (17:27)
[2018-07-06] MEDS: PERCOCET 5MG/325MG TAB PO ×2 (17:30)
[2018-07-06 18:01] LABS: PARTIAL THROMBOPLASTIN TIME 104.5 SECONDS (25.4-37.6)
[2018-07-06 19:57] LABS: BEDSIDE GLUCOSE 287 MG/DL (83-110)
[2018-07-06] MEDS: EZETIMIBE 10 MG TAB (ZETIA) PO (20:46)
[2018-07-06] MEDS: LevoFLOXacin 250 MG TABLET PO (20:46)
[2018-07-06] MEDS: SIMVASTATIN 40 MG TAB PO (20:47)
[2018-07-06] MEDS: THEOPHYLLINE (THEO-24) 100MG SR **CAPSULE PO (20:47)
[2018-07-06] MEDS: LOSARTAN 50 MG TAB PO (20:47)
[2018-07-07 01:13] LABS: PARTIAL THROMBOPLASTIN TIME 156.4 SECONDS (25.4-37.6)
[2018-07-07] MEDS: VANCOMYCIN HCL 500 MG in D5W MINI-BAG PLUS 100 ML IV ×2 (01:32→12:40)
[2018-07-07] MEDS: LEVALBUTEROL 1.25 MG/0.5 ML CONCENTRATE NEB INH ×6 (01:35→19:55)
[2018-07-07] MEDS: FORMOTEROL FUMARATE 20 MCG/2 ML INHALATION SOLUTION (PERFOROMIST) INH ×2 (07:01→19:54)
[2018-07-07] MEDS: TIOTROPIUM INHALER/CAPSULE (SPIRIVA) INH (07:01)
[2018-07-07] MEDS: BUDESONIDE 0.5 MG/2 ML INHALATION SUSPENSION INH ×2 (07:01→19:55)
[2018-07-07 07:40] LABS: HEMATOCRIT 37.3 % (36.0-47.0); HEMOGLOBIN 11.8 g/dl (12.0-15.5); MEAN CORPUSCULAR HEMOGLOBIN 23.8 pg (27.0-33.0); MEAN CORPUSCULAR HGB CONC 31.6 g/dl (32.0-36.5); MEAN CORPUSCULAR VOLUME 75.4 fl (80.0-96.0); PLATELET COUNT, AUTOMATED 704 10^3/uL (150-450); RED BLOOD COUNT 4.95 10^6/uL (4.00-5.40); RED CELL DISTRIBUTION WIDTH 13.9 % (11.5-14.5)
[2018-07-07 07:50] LABS: INR 1.03; PROTHROMBIN TIME 13.6 SECONDS (12.1-14.4)
[2018-07-07 07:52] LABS: PARTIAL THROMBOPLASTIN TIME 90.7 SECONDS (25.4-37.6)
[2018-07-07 07:58] LABS: ANION GAP 9 MEQ/L (8-16); BLOOD UREA NITROGEN 30 MG/DL (7-18); CALCIUM LEVEL 8.5 MG/DL (8.8-10.2); CARBON DIOXIDE LEVEL 28 MEQ/L (21-32); CHLORIDE LEVEL 96 MEQ/L (98-107); CREATININE FOR GFR 1.11 MG/DL (0.55-1.30); GLOMERULAR FILTRATION RATE 50.9 (>39); GLUCOSE, FASTING 397 MG/DL (70-100); POTASSIUM SERUM 3.7 MEQ/L (3.5-5.1); SODIUM LEVEL 133 MEQ/L (136-145)
[2018-07-07] MEDS: LACTOBACILLUS ACIDOPHILUS CAP (BACID) PO ×2 (07:59→17:27)
[2018-07-07] MEDS: predniSONE 20 MG TAB PO (08:00)
[2018-07-07] MEDS: PERCOCET 5MG/325MG TAB PO ×2 (08:01→22:33)
[2018-07-07] MEDS: LEVOTHYROXINE 75MCG TABLET (0.075MG) PO (08:01)
[2018-07-07] MEDS: hydroCHLOROthiazide 12.5 MG CAPSULE PO (08:02)
[2018-07-07] MEDS: glipiZIDE XL 5 MG TABCR PO (08:02)
[2018-07-07] MEDS: VITAMIN D 1,000 INTERNATIONAL UNITS TABLET PO (08:03)
[2018-07-07] MEDS: HumaLOG INSULIN (NovoLOG) PER UNIT SC ×4 (08:08→22:34)
[2018-07-07 08:23] LABS: ADD MANUAL DIFFER YES; DIFF SLIDE NUMBER 73; POSITIVE DIFF POS FLAG; POSITIVE MORPH POS FLAG; WHITE BLOOD COUNT 24.4 10^3/uL (4.0-10.0)
[2018-07-07 08:42] LABS: BANDS 1 % (< 11); EOSINOPHILS 1 % (0-5); LYMPHOCYTES 39 % (16-52); MONOCYTES 2 % (0-8); MYELOCYTES 1 % (0-0); NEUTROPHILS 56 % (35-75)
[2018-07-07 08:43] LABS: ANISOCYTOSIS 1+; PLATELET ESTIMATE INCREASED (NORMAL)
[2018-07-07] MEDS: ALPRAZolam 0.25 MG TAB PO ×2 (10:35→16:02)
[2018-07-07 12:24] LABS: BEDSIDE GLUCOSE 386 MG/DL (83-110)
[2018-07-07] MEDS: HEPARIN DRIP 25,000 UNITS in APPROPRIATE DILUENT 1 EA IV (13:54)
[2018-07-07 14:23] LABS: PARTIAL THROMBOPLASTIN TIME 68.5 SECONDS (25.4-37.6)
[2018-07-07] MEDS: ACETAMINOPHEN TAB 650MG DOSE (2X325MG) PO (16:02)
[2018-07-07] MEDS: WARFARIN SOD 7.5 MG TAB PO (17:27)
[2018-07-07 17:32] LABS: BEDSIDE GLUCOSE 341 MG/DL (83-110)
[2018-07-07 20:39] LABS: BEDSIDE GLUCOSE 314 MG/DL (83-110)
[2018-07-07] MEDS: THEOPHYLLINE (THEO-24) 100MG SR **CAPSULE PO (22:30)
[2018-07-07] MEDS: LOSARTAN 50 MG TAB PO (22:31)
[2018-07-07] MEDS: LevoFLOXacin 250 MG TABLET PO (22:31)
[2018-07-07] MEDS: EZETIMIBE 10 MG TAB (ZETIA) PO (22:31)
[2018-07-07] MEDS: SIMVASTATIN 40 MG TAB PO (22:32)
[2018-07-08] MEDS: LEVALBUTEROL 1.25 MG/0.5 ML CONCENTRATE NEB INH ×7 (00:42→23:18)
[2018-07-08] MEDS: VANCOMYCIN HCL 500 MG in D5W MINI-BAG PLUS 100 ML IV (01:14)
[2018-07-08 06:27] LABS: BEDSIDE GLUCOSE 262 MG/DL (83-110)
[2018-07-08 06:42] LABS: INR 1.12; PROTHROMBIN TIME 14.6 SECONDS (12.1-14.4)
[2018-07-08 06:44] LABS: PARTIAL THROMBOPLASTIN TIME 77.3 SECONDS (25.4-37.6)
[2018-07-08] MEDS: BUDESONIDE 0.5 MG/2 ML INHALATION SUSPENSION INH ×2 (07:50→19:30)
[2018-07-08] MEDS: FORMOTEROL FUMARATE 20 MCG/2 ML INHALATION SOLUTION (PERFOROMIST) INH ×2 (07:50→19:30)
[2018-07-08] MEDS: TIOTROPIUM INHALER/CAPSULE (SPIRIVA) INH (08:02)
[2018-07-08] MEDS: predniSONE 20 MG TAB PO (08:31)
[2018-07-08] MEDS: HumaLOG INSULIN (NovoLOG) PER UNIT SC ×4 (08:31→21:40)
[2018-07-08] MEDS: ALPRAZolam 0.25 MG TAB PO ×4 (08:31→16:53)
[2018-07-08] MEDS: LACTOBACILLUS ACIDOPHILUS CAP (BACID) PO ×2 (08:31→16:54)
[2018-07-08] MEDS: LEVOTHYROXINE 75MCG TABLET (0.075MG) PO (08:32)
[2018-07-08] MEDS: hydroCHLOROthiazide 12.5 MG CAPSULE PO (08:32)
[2018-07-08] MEDS: VITAMIN D 1,000 INTERNATIONAL UNITS TABLET PO (08:32)
[2018-07-08] MEDS: glipiZIDE XL 5 MG TABCR PO (08:32)
[2018-07-08 09:08] LABS: HEMATOCRIT 38.3 % (36.0-47.0); HEMOGLOBIN 11.9 g/dl (12.0-15.5); MEAN CORPUSCULAR HEMOGLOBIN 23.9 pg (27.0-33.0); MEAN CORPUSCULAR HGB CONC 31.1 g/dl (32.0-36.5); MEAN CORPUSCULAR VOLUME 76.9 fl (80.0-96.0); PLATELET COUNT, AUTOMATED 645 10^3/uL (150-450); RED BLOOD COUNT 4.98 10^6/uL (4.00-5.40); WHITE BLOOD COUNT 22.9 10^3/uL (4.0-10.0)
[2018-07-08 09:15] LABS: ANION GAP 5 MEQ/L (8-16); BLOOD UREA NITROGEN 27 MG/DL (7-18); CALCIUM LEVEL 8.4 MG/DL (8.8-10.2); CARBON DIOXIDE LEVEL 35 MEQ/L (21-32); CHLORIDE LEVEL 95 MEQ/L (98-107); CREATININE FOR GFR 0.99 MG/DL (0.55-1.30); GLOMERULAR FILTRATION RATE 58.1 (>39); GLUCOSE, FASTING 278 MG/DL (70-100); POTASSIUM SERUM 3.2 MEQ/L (3.5-5.1); SODIUM LEVEL 135 MEQ/L (136-145)
[2018-07-08] MEDS: SENOKOT S TAB PO ×2 (09:25→20:10)
[2018-07-08] MEDS: MIRALAX *UNIT DOSE* 17GM PACKET PO ×2 (09:25→20:09)
[2018-07-08] MEDS: PERCOCET 5MG/325MG TAB PO (09:26)
[2018-07-08] MEDS ORDERED: POTASSIUM CHLORIDE 10 MEQ SR TABLET PO (12:30)
[2018-07-08 12:31] LABS: BEDSIDE GLUCOSE 322 MG/DL (83-110)
[2018-07-08] MEDS: POTASSIUM CHLORIDE 10 MEQ SR TABLET PO (12:41)
[2018-07-08] MEDS: WARFARIN SOD 5 MG TAB PO (16:53)
[2018-07-08] MEDS: ACETAMINOPHEN TAB 650MG DOSE (2X325MG) PO (16:54)
[2018-07-08 17:10] LABS: BEDSIDE GLUCOSE 399 MG/DL (83-110)
[2018-07-08 18:03] LABS: HEMOGLOBIN 12.7 g/dl (12.0-15.5)
[2018-07-08] MEDS: THEOPHYLLINE (THEO-24) 100MG SR **CAPSULE PO (20:10)
[2018-07-08] MEDS: SIMVASTATIN 40 MG TAB PO (20:11)
[2018-07-08] MEDS: EZETIMIBE 10 MG TAB (ZETIA) PO (20:11)
[2018-07-08] MEDS: LevoFLOXacin 250 MG TABLET PO (20:11)
[2018-07-08] MEDS: LOSARTAN 50 MG TAB PO (20:12)
[2018-07-08 21:04] LABS: BEDSIDE GLUCOSE 395 MG/DL (83-110)
[2018-07-08] MEDS: HEPARIN DRIP 25,000 UNITS in APPROPRIATE DILUENT 1 EA IV (22:31)
[2018-07-09 00:27] LABS: HEMATOCRIT 37.2 % (36.0-47.0); HEMOGLOBIN 11.7 g/dl (12.0-15.5)
[2018-07-09] MEDS: PERCOCET 5MG/325MG TAB PO ×2 (03:15→15:48)
[2018-07-09] MEDS: LEVALBUTEROL 1.25 MG/0.5 ML CONCENTRATE NEB INH ×5 (04:30→19:37)
[2018-07-09 06:35] LABS: HEMATOCRIT 37.8 % (36.0-47.0); HEMOGLOBIN 11.9 g/dl (12.0-15.5); MEAN CORPUSCULAR HEMOGLOBIN 24.2 pg (27.0-33.0); MEAN CORPUSCULAR HGB CONC 31.5 g/dl (32.0-36.5); MEAN CORPUSCULAR VOLUME 76.8 fl (80.0-96.0); PLATELET COUNT, AUTOMATED 583 10^3/uL (150-450); RED BLOOD COUNT 4.92 10^6/uL (4.00-5.40)
[2018-07-09 06:41] LABS: ADD MANUAL DIFFER YES; DIFF SLIDE NUMBER 57; POSITIVE DIFF POS FLAG; POSITIVE MORPH POS FLAG; WHITE BLOOD COUNT 23.6 10^3/uL (4.0-10.0)
[2018-07-09 06:46] LABS: INR 1.72; PROTHROMBIN TIME 20.5 SECONDS (12.1-14.4)
[2018-07-09 06:48] LABS: PARTIAL THROMBOPLASTIN TIME 76.4 SECONDS (25.4-37.6)
[2018-07-09 06:59] LABS: ERYTHROCYTE SEDIMENTATION RATE 30 mm/hr (0-30)
[2018-07-09 07:08] LABS: ANION GAP 6 MEQ/L (8-16); BLOOD UREA NITROGEN 26 MG/DL (7-18); C REACTIVE PROTEIN QUANTITATIV 0.43 MG/DL (0.00-0.30); CALCIUM LEVEL 8.4 MG/DL (8.8-10.2); CARBON DIOXIDE LEVEL 34 MEQ/L (21-32); CHLORIDE LEVEL 98 MEQ/L (98-107); CREATININE FOR GFR 0.95 MG/DL (0.55-1.30); GLOMERULAR FILTRATION RATE > 60.0 (>39); GLUCOSE, FASTING 229 MG/DL (70-100); POTASSIUM SERUM 3.5 MEQ/L (3.5-5.1); SODIUM LEVEL 138 MEQ/L (136-145)
[2018-07-09 07:21] LABS: ANISOCYTOSIS 1+; BANDS 1 % (< 11); EOSINOPHILS 1 % (0-5); LYMPHOCYTES 42 % (16-52); METAMYELOCYTES 1 % (0-0); MONOCYTES 5 % (0-8); MYELOCYTES 4 % (0-0); NEUTROPHILS 46 % (35-75); PLATELET ESTIMATE INCREASED (NORMAL)
[2018-07-09 07:22] LABS: MICROCYTOSIS 1+; SMUDGE CELLS 1+
[2018-07-09] MEDS ORDERED: VANCOMYCIN HCL 500 MG in D5W MINI-BAG PLUS 100 ML IV (08:30)
[2018-07-09] MEDS: TIOTROPIUM INHALER/CAPSULE (SPIRIVA) INH (08:35)
[2018-07-09] MEDS: BUDESONIDE 0.5 MG/2 ML INHALATION SUSPENSION INH ×2 (08:35→19:36)
[2018-07-09] MEDS: FORMOTEROL FUMARATE 20 MCG/2 ML INHALATION SOLUTION (PERFOROMIST) INH ×2 (08:36→19:36)
[2018-07-09] MEDS: MIRALAX *UNIT DOSE* 17GM PACKET PO ×2 (09:14→21:41)
[2018-07-09] MEDS: HumaLOG INSULIN (NovoLOG) PER UNIT SC ×4 (09:14→21:40)
[2018-07-09] MEDS: SENOKOT S TAB PO ×2 (09:14→21:40)
[2018-07-09] MEDS: LACTOBACILLUS ACIDOPHILUS CAP (BACID) PO ×2 (09:15→18:11)
[2018-07-09] MEDS: predniSONE 20 MG TAB PO (09:15)
[2018-07-09] MEDS: LEVOTHYROXINE 75MCG TABLET (0.075MG) PO (09:15)
[2018-07-09] MEDS: hydroCHLOROthiazide 12.5 MG CAPSULE PO (09:16)
[2018-07-09] MEDS: VITAMIN D 1,000 INTERNATIONAL UNITS TABLET PO (09:16)
[2018-07-09] MEDS: glipiZIDE XL 5 MG TABCR PO (09:16)
[2018-07-09] MEDS: VANCOMYCIN HCL 1,000 MG, VIAL MATE ADAPTER 1 EACH in D5W 250 ML IV (11:28)
[2018-07-09 11:43] LABS: BEDSIDE GLUCOSE 146 MG/DL (83-110)
[2018-07-09 11:57] LABS: HEMATOCRIT 37.9 % (36.0-47.0); HEMOGLOBIN 12.1 g/dl (12.0-15.5)
[2018-07-09] MEDS: ACETAMINOPHEN TAB 650MG DOSE (2X325MG) PO (12:24)
[2018-07-09] MEDS: ALPRAZolam 0.25 MG TAB PO (12:25)
[2018-07-09 16:25] LABS: BEDSIDE GLUCOSE 387 MG/DL (83-110)
[2018-07-09] MEDS: WARFARIN SOD 7.5 MG TAB PO (18:10)
[2018-07-09] MEDS: VANCOMYCIN HCL 750 MG, VIAL MATE ADAPTER 1 EACH in D5W 250 ML IV (18:10)
[2018-07-09 18:21] LABS: HEMOGLOBIN 12.6 g/dl (12.0-15.5)
[2018-07-09 20:46] LABS: BEDSIDE GLUCOSE 338 MG/DL (83-110)
[2018-07-09] MEDS: EZETIMIBE 10 MG TAB (ZETIA) PO (21:40)
[2018-07-09] MEDS: LevoFLOXacin 250 MG TABLET PO (21:40)
[2018-07-09] MEDS: SIMVASTATIN 40 MG TAB PO (21:40)
[2018-07-09] MEDS: THEOPHYLLINE (THEO-24) 100MG SR **CAPSULE PO (21:40)
[2018-07-09] MEDS: LOSARTAN 50 MG TAB PO (21:41)
[2018-07-10 00:34] LABS: HEMATOCRIT 35.3 % (36.0-47.0); HEMOGLOBIN 11.2 g/dl (12.0-15.5)
[2018-07-10] MEDS: LEVALBUTEROL 1.25 MG/0.5 ML CONCENTRATE NEB INH ×4 (01:07→11:07)
[2018-07-10] MEDS: PERCOCET 5MG/325MG TAB PO (03:52)
[2018-07-10] MEDS: VANCOMYCIN HCL 750 MG, VIAL MATE ADAPTER 1 EACH in D5W 250 ML IV (06:03)
[2018-07-10 06:28] LABS: HEMATOCRIT 39.1 % (36.0-47.0); MEAN CORPUSCULAR HGB CONC 30.7 g/dl (32.0-36.5); PLATELET COUNT, AUTOMATED 560 10^3/uL (150-450); RED BLOOD COUNT 5.01 10^6/uL (4.00-5.40); RED CELL DISTRIBUTION WIDTH 14.5 % (11.5-14.5)
[2018-07-10 06:33] LABS: ADD MANUAL DIFFER YES; DIFF SLIDE NUMBER 36; POSITIVE DIFF POS FLAG; POSITIVE MORPH POS FLAG; WHITE BLOOD COUNT 22.7 10^3/uL (4.0-10.0)
[2018-07-10 06:36] LABS: ANION GAP 7 MEQ/L (8-16); BLOOD UREA NITROGEN 20 MG/DL (7-18); CALCIUM LEVEL 8.7 MG/DL (8.8-10.2); CARBON DIOXIDE LEVEL 35 MEQ/L (21-32); CHLORIDE LEVEL 96 MEQ/L (98-107); CREATININE FOR GFR 0.85 MG/DL (0.55-1.30); GLOMERULAR FILTRATION RATE > 60.0 (>39); GLUCOSE, FASTING 138 MG/DL (70-100); POTASSIUM SERUM 3.5 MEQ/L (3.5-5.1); SODIUM LEVEL 138 MEQ/L (136-145)
[2018-07-10 06:38] LABS: PROTHROMBIN TIME 25.7 SECONDS (12.1-14.4)
[2018-07-10] MEDS: FORMOTEROL FUMARATE 20 MCG/2 ML INHALATION SOLUTION (PERFOROMIST) INH (07:11)
[2018-07-10] MEDS: TIOTROPIUM INHALER/CAPSULE (SPIRIVA) INH (07:11)
[2018-07-10] MEDS: BUDESONIDE 0.5 MG/2 ML INHALATION SUSPENSION INH (07:11)
[2018-07-10 07:16] LABS: ANISOCYTOSIS 1+; ATYPICAL LYMPH 1 % (0-5); EOSINOPHILS 3 % (0-5); LYMPHOCYTES 33 % (16-52); METAMYELOCYTES 1 % (0-0); MICROCYTOSIS 1+; MONOCYTES 6 % (0-8); MYELOCYTES 2 % (0-0); NEUTROPHILS 54 % (35-75); PLATELET ESTIMATE INCREASED (NORMAL)
[2018-07-10] MEDS: HEPARIN DRIP 25,000 UNITS in APPROPRIATE DILUENT 1 EA IV (07:24)
[2018-07-10] MEDS: LACTOBACILLUS ACIDOPHILUS CAP (BACID) PO (08:10)
[2018-07-10] MEDS: LEVOTHYROXINE 75MCG TABLET (0.075MG) PO (08:10)
[2018-07-10] MEDS: hydroCHLOROthiazide 12.5 MG CAPSULE PO (08:10)
[2018-07-10] MEDS: glipiZIDE XL 5 MG TABCR PO (08:10)
[2018-07-10] MEDS: predniSONE 20 MG TAB PO (08:10)
[2018-07-10] MEDS: SENOKOT S TAB PO (08:10)
[2018-07-10] MEDS: HumaLOG INSULIN (NovoLOG) PER UNIT SC (08:11)
[2018-07-10] MEDS: VITAMIN D 1,000 INTERNATIONAL UNITS TABLET PO (08:11)
[2018-07-10] MEDS: MIRALAX *UNIT DOSE* 17GM PACKET PO (08:11)
[2018-07-10] MEDS ORDERED: WARFARIN SOD 5 MG TAB PO (17:00)
== END 2018-07-10 11:55 | disposition home health service (06) | DRG 190 ==
LOC: M ED INP 23:54 → M ICU 07-03 01:01 → M ED 19:52 → M MS5PR 07-03 13:55
DX: J44.1 Chronic obstructive pulmonary disease with (acute) exacerbation (principal); I26.99 Other pulmonary embolism without acute cor pulmonale; J96.11 Chronic respiratory failure with hypoxia; J44.0 Chronic obstructive pulmonary disease with (acute) lower respiratory infection; I10 Essential (primary) hypertension; I27.20 Pulmonary hypertension, unspecified; R91.1 Solitary pulmonary nodule; F17.200 Nicotine dependence, unspecified, uncomplicated; E11.9 Type 2 diabetes mellitus without complications; E78.5 Hyperlipidemia, unspecified; G89.29 Other chronic pain; K57.30 Diverticulosis of large intestine without perforation or abscess without bleeding; K42.9 Umbilical hernia without obstruction or gangrene; E27.9 Disorder of adrenal gland, unspecified; Z79.899 Other long term (current) drug therapy; K64.8 Other hemorrhoids; F41.9 Anxiety disorder, unspecified

== ENCOUNTER → 2018-07-14 | Outpatient (REF) | payer MEDICARE, OTHER ==
[2018-07-14 13:01] LABS: INR 2.27; PROTHROMBIN TIME 25.4 SECONDS (12.1-14.4)
== END ==
LOC: M SHH 11:45
DX: I26.99 Other pulmonary embolism without acute cor pulmonale (principal)
CPT/HCPCS: 85610

== ENCOUNTER → 2018-07-21 | Outpatient (REF) | payer MEDICARE, OTHER ==
[2018-07-21 11:51] LABS: INR 1.45; PROTHROMBIN TIME 17.9 SECONDS (12.1-14.4)
== END ==
LOC: M SHH 11:28
DX: Z79.01 Long term (current) use of anticoagulants (principal)
CPT/HCPCS: 85610

== ENCOUNTER 2018-07-31 21:16 | Inpatient (IN) | payer MEDICARE, OTHER ==
[2018-07-31] MEDS: IPRATROPIUM 0.5MG/ALBUTEROL 2.5MG INH SOL UD 3ML (DUONEB)(J7620) NEB ×3 (21:45→22:23)
[2018-07-31] MEDS: dexameTHASONE 20 MG/5 ML VIAL (J1100) IV (22:24)
[2018-07-31 22:25] LABS: BASO # 0.1 10^3/uL (0.0-0.2); BASO % 0.4 % (0.0-1.0); EOS # 0.2 10^3/uL (0.0-0.50); EOS % 1.7 % (0.0-3.0); HEMATOCRIT 36.3 % (36.0-47.0); HEMOGLOBIN 11.4 g/dl (12.0-15.5); IMMATURE GRANULOCYTE % 0.3 % (0-3.0); LYMPH # 3.3 10^3/uL (1.5-4.5); LYMPH % 29.6 % (24.0-44.0); MEAN CORPUSCULAR HEMOGLOBIN 24.5 pg (27.0-33.0); MEAN CORPUSCULAR HGB CONC 31.4 g/dl (32.0-36.5); MEAN CORPUSCULAR VOLUME 77.9 fl (80.0-96.0); MONO # 1.1 10^3/uL (0.0-0.8); MONO % 9.9 % (0.0-5.0); NEUTROPHILS # 6.5 10^3/uL (1.8-7.7); NEUTROPHILS % 58.1 % (36.0-66.0); PLATELET COUNT, AUTOMATED 432 10^3/uL (150-450); RED BLOOD COUNT 4.66 10^6/uL (4.00-5.40); RED CELL DISTRIBUTION WIDTH 16.2 % (11.5-14.5); WHITE BLOOD COUNT 11.2 10^3/uL (4.0-10.0)
[2018-07-31 22:45] LABS: ANION GAP 7 MEQ/L (8-16); BLOOD UREA NITROGEN 11 MG/DL (7-18); CALCIUM LEVEL 8.2 MG/DL (8.8-10.2); CARBON DIOXIDE LEVEL 30 MEQ/L (21-32); CHLORIDE LEVEL 101 MEQ/L (98-107); CK-MB VALUE MASS 1.3 NG/ML (<3.6); CPK CREATINE PHOSPHOKINASE 57 U/L (26-192); CREATININE FOR GFR 0.69 MG/DL (0.55-1.30); GLOMERULAR FILTRATION RATE > 60.0 (>39); GLUCOSE, FASTING 83 MG/DL (70-100); MB/CK RELATIVE INDEX 2.28 (< OR =4); POTASSIUM SERUM 4.1 MEQ/L (3.5-5.1); SODIUM LEVEL 138 MEQ/L (136-145); TROPONIN I < 0.02 NG/ML (< 0.10)
[2018-08-01] MEDS: IPRATROPIUM 0.5MG/ALBUTEROL 2.5MG INH SOL UD 3ML (DUONEB)(J7620) NEB ×3 (00:08→00:33)
[2018-08-01 00:23] LABS: ABG BASE EXCESS 3.8 (-2.0-2.0); ABG HCO3 28.6 MEQ/L (22.0-26.0); ABG O2 SATURATION 99.2 % (95.0-99.0); ABG PARTIAL PRESSURE CO2 44.2 mmHg (35.0-45.0); ABG PARTIAL PRESSURE O2 164.9 mmHg (75.0-100.0); ABG STANDARD HCO3 27.9 MEQ/L (22.0-26.0); ABG pH (ARTERIAL) 7.429 UNITS (7.350-7.450)
[2018-08-01] MEDS ORDERED: DEXTROSE 50% 50 ML SYRINGE IV (02:15)
[2018-08-01] MEDS ORDERED: GLUCAGON FOR INJ 1 MG VIAL (J1610) SC (02:15)
[2018-08-01] MEDS ORDERED: MIRALAX *UNIT DOSE* 17GM PACKET PO (02:15)
[2018-08-01] MEDS ORDERED: GLUCOSE 4 GM CHEW TABLET PO (02:15)
[2018-08-01] MEDS: DOXYCYCLINE HYCLATE 100 MG TAB PO ×2 (02:20→08:19)
[2018-08-01] MEDS: ADVAIR HFA 230/21MCG INHALER INH ×3 (02:20→19:14)
[2018-08-01 02:43] LABS: INR 2.05; PROTHROMBIN TIME 23.5 SECONDS (12.1-14.4)
[2018-08-01 02:44] LABS: PARTIAL THROMBOPLASTIN TIME 38.9 SECONDS (25.4-37.6)
[2018-08-01] MEDS: ALBUTEROL SULFATE 2.5 MG/0.5 ML INH NEB SOLN NEB ×7 (04:00→23:14)
[2018-08-01] MEDS: SIMVASTATIN 40 MG TAB PO ×2 (04:52→20:07)
[2018-08-01] MEDS: LOSARTAN 50 MG TAB PO ×2 (04:52→20:07)
[2018-08-01] MEDS: EZETIMIBE 10 MG TAB (ZETIA) PO ×2 (04:52→20:10)
[2018-08-01] MEDS: ACETAMINOPHEN TAB 650MG DOSE (2X325MG) PO ×2 (04:53→17:19)
[2018-08-01] MEDS: THEOPHYLLINE (THEO-24) 100MG SR **CAPSULE PO ×2 (06:20→20:07)
[2018-08-01 06:27] LABS: BEDSIDE GLUCOSE 239 MG/DL (83-110)
[2018-08-01 07:52] LABS: HEMATOCRIT 35.7 % (36.0-47.0); MEAN CORPUSCULAR HEMOGLOBIN 24.1 pg (27.0-33.0); MEAN CORPUSCULAR HGB CONC 30.8 g/dl (32.0-36.5); MEAN CORPUSCULAR VOLUME 78.1 fl (80.0-96.0); PLATELET COUNT, AUTOMATED 458 10^3/uL (150-450); RED BLOOD COUNT 4.57 10^6/uL (4.00-5.40); RED CELL DISTRIBUTION WIDTH 15.9 % (11.5-14.5); WHITE BLOOD COUNT 8.6 10^3/uL (4.0-10.0)
[2018-08-01] MEDS: LEVOTHYROXINE 75MCG TABLET (0.075MG) PO (08:19)
[2018-08-01] MEDS: WARFARIN SOD 3 MG TAB PO (08:19)
[2018-08-01] MEDS: VITAMIN D 1,000 INTERNATIONAL UNITS TABLET PO (08:19)
[2018-08-01] MEDS: hydroCHLOROthiazide 12.5 MG CAPSULE PO (08:19)
[2018-08-01] MEDS: predniSONE 20 MG TAB PO (08:19)
[2018-08-01] MEDS: DOCUSATE SODIUM 100 MG CAP PO (08:19)
[2018-08-01] MEDS: HumaLOG INSULIN (NovoLOG) PER UNIT SC ×3 (08:20→17:42)
[2018-08-01 09:12] LABS: C REACTIVE PROTEIN QUANTITATIV 2.61 MG/DL (0.00-0.30)
[2018-08-01 09:20] LABS: ANION GAP 9 MEQ/L (8-16); BLOOD UREA NITROGEN 14 MG/DL (7-18); CALCIUM LEVEL 8.7 MG/DL (8.8-10.2); CARBON DIOXIDE LEVEL 30 MEQ/L (21-32); CHLORIDE LEVEL 95 MEQ/L (98-107); CREATININE FOR GFR 0.87 MG/DL (0.55-1.30); GLOMERULAR FILTRATION RATE > 60.0 (>39); GLUCOSE, FASTING 237 MG/DL (70-100); MAGNESIUM LEVEL 1.7 MG/DL (1.8-2.4); NT-PRO BNP 430 PG/ML (<450); POTASSIUM SERUM 4.2 MEQ/L (3.5-5.1); SODIUM LEVEL 134 MEQ/L (136-145)
[2018-08-01] MEDS: TIOTROPIUM INHALER/CAPSULE (SPIRIVA) INH (11:28)
[2018-08-01 11:59] LABS: BEDSIDE GLUCOSE 210 MG/DL (83-110)
[2018-08-01] MEDS: PERCOCET 5MG/325MG TAB PO ×2 (12:26→23:23)
[2018-08-01] MEDS: methylPREDNISolone INJ 125 MG/2 ML VIAL (J2930) IV ×2 (17:18→23:23)
[2018-08-01 17:44] LABS: BEDSIDE GLUCOSE 247 MG/DL (83-110)
[2018-08-01] MEDS: MOXIFLOXACIN HCL 400 MG in APPROPRIATE DILUENT 1 EA IV (20:06)
[2018-08-02] MEDS: ALBUTEROL SULFATE 2.5 MG/0.5 ML INH NEB SOLN NEB ×7 (03:55→23:32)
[2018-08-02 04:03] LABS: BEDSIDE GLUCOSE 248 MG/DL (83-110)
[2018-08-02 07:24] LABS: ANION GAP 13 MEQ/L (8-16); BLOOD UREA NITROGEN 25 MG/DL (7-18); CALCIUM LEVEL 8.6 MG/DL (8.8-10.2); CARBON DIOXIDE LEVEL 25 MEQ/L (21-32); CHLORIDE LEVEL 95 MEQ/L (98-107); CREATININE FOR GFR 1.98 MG/DL (0.55-1.30); GLOMERULAR FILTRATION RATE 26.1 (>39); GLUCOSE, FASTING 275 MG/DL (70-100); SODIUM LEVEL 133 MEQ/L (136-145)
[2018-08-02 07:25] LABS: INR 2.27; PROTHROMBIN TIME 25.5 SECONDS (12.1-14.4)
[2018-08-02 07:29] LABS: HEMATOCRIT 36.4 % (36.0-47.0); HEMOGLOBIN 11.5 g/dl (12.0-15.5); MEAN CORPUSCULAR HEMOGLOBIN 24.4 pg (27.0-33.0); MEAN CORPUSCULAR HGB CONC 31.6 g/dl (32.0-36.5); MEAN CORPUSCULAR VOLUME 77.1 fl (80.0-96.0); PLATELET COUNT, AUTOMATED 555 10^3/uL (150-450); RED BLOOD COUNT 4.72 10^6/uL (4.00-5.40); RED CELL DISTRIBUTION WIDTH 15.6 % (11.5-14.5)
[2018-08-02] MEDS: methylPREDNISolone INJ 125 MG/2 ML VIAL (J2930) IV (08:21)
[2018-08-02] MEDS: VITAMIN D 1,000 INTERNATIONAL UNITS TABLET PO (08:21)
[2018-08-02] MEDS: LEVOTHYROXINE 75MCG TABLET (0.075MG) PO (08:21)
[2018-08-02] MEDS: WARFARIN SOD 3 MG TAB PO (08:21)
[2018-08-02] MEDS: HumaLOG INSULIN (NovoLOG) PER UNIT SC ×3 (08:21→17:20)
[2018-08-02] MEDS: DOCUSATE SODIUM 100 MG CAP PO (08:22)
[2018-08-02] MEDS: NS 1,000 ML IV ×2 (08:33→20:48)
[2018-08-02] MEDS: PERCOCET 5MG/325MG TAB PO (08:35)
[2018-08-02] MEDS: ADVAIR HFA 230/21MCG INHALER INH ×2 (11:37→19:45)
[2018-08-02] MEDS: TIOTROPIUM INHALER/CAPSULE (SPIRIVA) INH (11:37)
[2018-08-02 11:45] LABS: BEDSIDE GLUCOSE 256 MG/DL (83-110)
[2018-08-02] MEDS: DOXYCYCLINE HYCLATE 100 MG TAB PO ×2 (16:12→20:53)
[2018-08-02 17:21] LABS: BEDSIDE GLUCOSE 157 MG/DL (83-110)
[2018-08-02] MEDS: methylPREDNISolone INJ 40 MG/1 ML VIAL (J2920) IV (20:48)
[2018-08-02] MEDS: SIMVASTATIN 40 MG TAB PO (20:53)
[2018-08-02] MEDS: THEOPHYLLINE (THEO-24) 100MG SR **CAPSULE PO (20:53)
[2018-08-02] MEDS: EZETIMIBE 10 MG TAB (ZETIA) PO (20:53)
[2018-08-02 22:12] LABS: BEDSIDE GLUCOSE 235 MG/DL (83-110)
[2018-08-03] MEDS: ALBUTEROL SULFATE 2.5 MG/0.5 ML INH NEB SOLN NEB ×5 (03:23→20:00)
[2018-08-03] MEDS: PERCOCET 5MG/325MG TAB PO ×3 (03:23→22:04)
[2018-08-03 06:26] LABS: HEMATOCRIT 34.7 % (36.0-47.0); HEMOGLOBIN 10.6 g/dl (12.0-15.5); MEAN CORPUSCULAR HEMOGLOBIN 23.7 pg (27.0-33.0); MEAN CORPUSCULAR HGB CONC 30.5 g/dl (32.0-36.5); MEAN CORPUSCULAR VOLUME 77.6 fl (80.0-96.0); PLATELET COUNT, AUTOMATED 592 10^3/uL (150-450); RED BLOOD COUNT 4.47 10^6/uL (4.00-5.40); WHITE BLOOD COUNT 12.9 10^3/uL (4.0-10.0)
[2018-08-03 06:40] LABS: INR 2.78; PROTHROMBIN TIME 29.9 SECONDS (12.1-14.4)
[2018-08-03 06:44] LABS: ANION GAP 10 MEQ/L (8-16); BLOOD UREA NITROGEN 31 MG/DL (7-18); CALCIUM LEVEL 8.7 MG/DL (8.8-10.2); CARBON DIOXIDE LEVEL 27 MEQ/L (21-32); CHLORIDE LEVEL 100 MEQ/L (98-107); CREATININE FOR GFR 1.89 MG/DL (0.55-1.30); GLOMERULAR FILTRATION RATE 27.5 (>39); GLUCOSE, FASTING 265 MG/DL (70-100); POTASSIUM SERUM 4.3 MEQ/L (3.5-5.1); SODIUM LEVEL 137 MEQ/L (136-145)
[2018-08-03] MEDS: ADVAIR HFA 230/21MCG INHALER INH ×2 (08:19→20:15)
[2018-08-03] MEDS: TIOTROPIUM INHALER/CAPSULE (SPIRIVA) INH (08:19)
[2018-08-03] MEDS: NS 1,000 ML IV ×2 (08:55→20:14)
[2018-08-03] MEDS: HumaLOG INSULIN (NovoLOG) PER UNIT SC ×3 (08:55→18:32)
[2018-08-03] MEDS ORDERED: INFLUENZA VIRUS VACCINE HIGH DOSE 0.5 ML SYRINGE (90662) IM (09:00)
[2018-08-03] MEDS: DOCUSATE SODIUM 100 MG CAP PO (09:00)
[2018-08-03] MEDS: VITAMIN D 1,000 INTERNATIONAL UNITS TABLET PO (09:33)
[2018-08-03] MEDS: WARFARIN SOD 3 MG TAB PO (09:34)
[2018-08-03] MEDS: DOXYCYCLINE HYCLATE 100 MG TAB PO ×2 (09:34→20:13)
[2018-08-03] MEDS: LEVOTHYROXINE 75MCG TABLET (0.075MG) PO (09:34)
[2018-08-03] MEDS: methylPREDNISolone INJ 40 MG/1 ML VIAL (J2920) IV (09:35)
[2018-08-03 11:34] LABS: BEDSIDE GLUCOSE 141 MG/DL (83-110)
[2018-08-03] MEDS: ALPRAZolam 0.25 MG TAB PO (16:53)
[2018-08-03] MEDS: LIDOCAINE 5% (LIDODERM) PATCH TD (16:53)
[2018-08-03 17:46] LABS: BEDSIDE GLUCOSE 318 MG/DL (83-110)
[2018-08-03] MEDS: THEOPHYLLINE (THEO-24) 100MG SR **CAPSULE PO (20:13)
[2018-08-03] MEDS: EZETIMIBE 10 MG TAB (ZETIA) PO (20:13)
[2018-08-03] MEDS: SIMVASTATIN 40 MG TAB PO (20:13)
[2018-08-03 20:28] LABS: BEDSIDE GLUCOSE 340 MG/DL (83-110)
[2018-08-04] MEDS: ALBUTEROL SULFATE 2.5 MG/0.5 ML INH NEB SOLN NEB ×6 (00:32→20:06)
[2018-08-04] MEDS: **NOTE PATIENT COMMENT** MISC XX ×2 (04:10→21:00)
[2018-08-04] MEDS: PERCOCET 5MG/325MG TAB PO ×3 (06:24→23:25)
[2018-08-04 06:39] LABS: HEMATOCRIT 36.5 % (36.0-47.0); HEMOGLOBIN 11.3 g/dl (12.0-15.5); MEAN CORPUSCULAR HEMOGLOBIN 24.1 pg (27.0-33.0); MEAN CORPUSCULAR VOLUME 77.8 fl (80.0-96.0); PLATELET COUNT, AUTOMATED 573 10^3/uL (150-450); RED BLOOD COUNT 4.69 10^6/uL (4.00-5.40); RED CELL DISTRIBUTION WIDTH 15.9 % (11.5-14.5)
[2018-08-04 07:04] LABS: ANION GAP 11 MEQ/L (8-16); BLOOD UREA NITROGEN 32 MG/DL (7-18); CALCIUM LEVEL 8.7 MG/DL (8.8-10.2); CARBON DIOXIDE LEVEL 25 MEQ/L (21-32); CHLORIDE LEVEL 105 MEQ/L (98-107); CREATININE FOR GFR 1.46 MG/DL (0.55-1.30); GLOMERULAR FILTRATION RATE 37.1 (>39); GLUCOSE, FASTING 142 MG/DL (70-100); SODIUM LEVEL 141 MEQ/L (136-145)
[2018-08-04 07:14] LABS: INR 2.63; PROTHROMBIN TIME 28.6 SECONDS (12.1-14.4)
[2018-08-04] MEDS: HumaLOG INSULIN (NovoLOG) PER UNIT SC ×4 (08:07→23:26)
[2018-08-04] MEDS: ADVAIR HFA 230/21MCG INHALER INH ×2 (08:15→20:06)
[2018-08-04] MEDS: TIOTROPIUM INHALER/CAPSULE (SPIRIVA) INH (08:15)
[2018-08-04] MEDS: LEVOTHYROXINE 75MCG TABLET (0.075MG) PO (09:32)
[2018-08-04] MEDS: DOXYCYCLINE HYCLATE 100 MG TAB PO ×2 (09:33→21:04)
[2018-08-04] MEDS: VITAMIN D 1,000 INTERNATIONAL UNITS TABLET PO (09:33)
[2018-08-04] MEDS: WARFARIN SOD 3 MG TAB PO (09:34)
[2018-08-04] MEDS: predniSONE 20 MG TAB PO (09:34)
[2018-08-04] MEDS: DOCUSATE SODIUM 100 MG CAP PO (09:35)
[2018-08-04 11:53] LABS: BEDSIDE GLUCOSE 153 MG/DL (83-110)
[2018-08-04] MEDS: LIDOCAINE 5% (LIDODERM) PATCH TD (13:36)
[2018-08-04] MEDS: INFLUENZA VIRUS VACCINE HIGH DOSE 0.5 ML SYRINGE (90662) IM (16:00)
[2018-08-04 17:35] LABS: BEDSIDE GLUCOSE 286 MG/DL (83-110)
[2018-08-04 21:03] LABS: BEDSIDE GLUCOSE 333 MG/DL (83-110)
[2018-08-04] MEDS: EZETIMIBE 10 MG TAB (ZETIA) PO (21:03)
[2018-08-04] MEDS: SIMVASTATIN 40 MG TAB PO (21:04)
[2018-08-04] MEDS: THEOPHYLLINE (THEO-24) 100MG SR **CAPSULE PO (21:04)
[2018-08-04] MEDS: amLODIPine 5 MG TAB PO (22:59)
[2018-08-05] MEDS: ALBUTEROL SULFATE 2.5 MG/0.5 ML INH NEB SOLN NEB ×6 (04:00→20:38)
[2018-08-05 07:04] LABS: HEMATOCRIT 36.6 % (36.0-47.0); HEMOGLOBIN 11.3 g/dl (12.0-15.5); MEAN CORPUSCULAR HEMOGLOBIN 24.1 pg (27.0-33.0); MEAN CORPUSCULAR HGB CONC 30.9 g/dl (32.0-36.5); PLATELET COUNT, AUTOMATED 575 10^3/uL (150-450); RED BLOOD COUNT 4.69 10^6/uL (4.00-5.40); RED CELL DISTRIBUTION WIDTH 15.7 % (11.5-14.5); WHITE BLOOD COUNT 11.9 10^3/uL (4.0-10.0)
[2018-08-05 07:14] LABS: ANION GAP 9 MEQ/L (8-16); BLOOD UREA NITROGEN 27 MG/DL (7-18); CALCIUM LEVEL 8.9 MG/DL (8.8-10.2); CARBON DIOXIDE LEVEL 29 MEQ/L (21-32); CHLORIDE LEVEL 104 MEQ/L (98-107); CREATININE FOR GFR 1.07 MG/DL (0.55-1.30); GLOMERULAR FILTRATION RATE 53.1 (>39); GLUCOSE, FASTING 150 MG/DL (70-100); POTASSIUM SERUM 3.8 MEQ/L (3.5-5.1); SODIUM LEVEL 142 MEQ/L (136-145)
[2018-08-05] MEDS: TIOTROPIUM INHALER/CAPSULE (SPIRIVA) INH (08:27)
[2018-08-05] MEDS: ADVAIR HFA 230/21MCG INHALER INH ×2 (08:27→20:38)
[2018-08-05] MEDS: DOCUSATE SODIUM 100 MG CAP PO (09:19)
[2018-08-05] MEDS: WARFARIN SOD 3 MG TAB PO (09:19)
[2018-08-05] MEDS: VITAMIN D 1,000 INTERNATIONAL UNITS TABLET PO (09:19)
[2018-08-05] MEDS: DOXYCYCLINE HYCLATE 100 MG TAB PO (09:19)
[2018-08-05] MEDS: LEVOTHYROXINE 75MCG TABLET (0.075MG) PO (09:19)
[2018-08-05] MEDS: HumaLOG INSULIN (NovoLOG) PER UNIT SC ×4 (09:19→20:12)
[2018-08-05] MEDS: LIDOCAINE 5% (LIDODERM) PATCH TD (09:20)
[2018-08-05] MEDS: predniSONE 20 MG TAB PO (09:20)
[2018-08-05 12:13] LABS: BEDSIDE GLUCOSE 201 MG/DL (83-110)
[2018-08-05] MEDS: PERCOCET 5MG/325MG TAB PO ×2 (13:03→22:41)
[2018-08-05 16:27] LABS: BEDSIDE GLUCOSE 262 MG/DL (83-110)
[2018-08-05 20:04] LABS: BEDSIDE GLUCOSE 339 MG/DL (83-110)
[2018-08-05] MEDS: THEOPHYLLINE (THEO-24) 100MG SR **CAPSULE PO (20:11)
[2018-08-05] MEDS: amLODIPine 5 MG TAB PO (20:11)
[2018-08-05] MEDS: EZETIMIBE 10 MG TAB (ZETIA) PO (20:11)
[2018-08-05] MEDS: SIMVASTATIN 40 MG TAB PO (20:11)
[2018-08-05] MEDS: **NOTE PATIENT COMMENT** MISC XX (20:12)
[2018-08-06] MEDS: ALBUTEROL SULFATE 2.5 MG/0.5 ML INH NEB SOLN NEB ×4 (03:54→11:49)
[2018-08-06] MEDS: ACETAMINOPHEN TAB 650MG DOSE (2X325MG) PO (04:37)
[2018-08-06 06:33] LABS: HEMATOCRIT 33.7 % (36.0-47.0); HEMOGLOBIN 10.5 g/dl (12.0-15.5); MEAN CORPUSCULAR HEMOGLOBIN 23.9 pg (27.0-33.0); MEAN CORPUSCULAR HGB CONC 31.2 g/dl (32.0-36.5); MEAN CORPUSCULAR VOLUME 76.6 fl (80.0-96.0); PLATELET COUNT, AUTOMATED 532 10^3/uL (150-450); RED CELL DISTRIBUTION WIDTH 15.5 % (11.5-14.5); WHITE BLOOD COUNT 12.1 10^3/uL (4.0-10.0)
[2018-08-06 06:54] LABS: ANION GAP 6 MEQ/L (8-16); BLOOD UREA NITROGEN 23 MG/DL (7-18); CALCIUM LEVEL 8.7 MG/DL (8.8-10.2); CARBON DIOXIDE LEVEL 31 MEQ/L (21-32); CHLORIDE LEVEL 104 MEQ/L (98-107); CREATININE FOR GFR 0.84 MG/DL (0.55-1.30); GLOMERULAR FILTRATION RATE > 60.0 (>39); GLUCOSE, FASTING 109 MG/DL (70-100); POTASSIUM SERUM 3.3 MEQ/L (3.5-5.1); SODIUM LEVEL 141 MEQ/L (136-145)
[2018-08-06] MEDS: ADVAIR HFA 230/21MCG INHALER INH (08:32)
[2018-08-06] MEDS: TIOTROPIUM INHALER/CAPSULE (SPIRIVA) INH (08:32)
[2018-08-06] MEDS: VITAMIN D 1,000 INTERNATIONAL UNITS TABLET PO (08:36)
[2018-08-06] MEDS: WARFARIN SOD 3 MG TAB PO (08:36)
[2018-08-06] MEDS: LEVOTHYROXINE 75MCG TABLET (0.075MG) PO (08:36)
[2018-08-06] MEDS: HumaLOG INSULIN (NovoLOG) PER UNIT SC ×2 (08:36→12:47)
[2018-08-06] MEDS: LIDOCAINE 5% (LIDODERM) PATCH TD (08:37)
[2018-08-06] MEDS: DOCUSATE SODIUM 100 MG CAP PO (08:37)
[2018-08-06] MEDS: hydroCHLOROthiazide 12.5 MG CAPSULE PO (09:26)
[2018-08-06] MEDS: POTASSIUM CHLORIDE 10 MEQ SR TABLET PO (09:26)
[2018-08-06 11:14] LABS: BEDSIDE GLUCOSE 186 MG/DL (83-110)
[2018-08-06] MEDS: PERCOCET 5MG/325MG TAB PO (12:48)
[2018-08-06] MEDS ORDERED: LOSARTAN 50 MG TAB PO (21:00)
== END 2018-08-06 13:20 | disposition home health service (06) | DRG 191 ==
LOC: M ED INP 08-01 01:55 → M MS5PR 08-01 04:28 → M ED 21:16
DX: J44.1 Chronic obstructive pulmonary disease with (acute) exacerbation (principal); N17.9 Acute kidney failure, unspecified; J96.11 Chronic respiratory failure with hypoxia; J06.9 Acute upper respiratory infection, unspecified; E11.9 Type 2 diabetes mellitus without complications; F17.210 Nicotine dependence, cigarettes, uncomplicated; I10 Essential (primary) hypertension; E89.0 Postprocedural hypothyroidism; E78.5 Hyperlipidemia, unspecified; Z79.84 Long term (current) use of oral hypoglycemic drugs; Z79.891 Long term (current) use of opiate analgesic; Z79.899 Other long term (current) drug therapy; Z88.1 Allergy status to other antibiotic agents; Z88.2 Allergy status to sulfonamides; Z88.5 Allergy status to narcotic agent; Z99.81 Dependence on supplemental oxygen; Z86.711 Personal history of pulmonary embolism; Z88.8 Allergy status to other drugs, medicaments and biological substances

== ENCOUNTER → 2018-08-15 | Outpatient (REF) | payer MEDICARE, OTHER ==
[2018-08-15 15:47] LABS: INR 1.03; PROTHROMBIN TIME 13.6 SECONDS (12.1-14.4)
== END ==
LOC: M LAB REF 15:25
DX: I26.99 Other pulmonary embolism without acute cor pulmonale (principal)
CPT/HCPCS: 85610

== ENCOUNTER → 2018-08-22 | Outpatient (REF) | payer MEDICARE, OTHER ==
[2018-08-22 12:05] LABS: PROTHROMBIN TIME 15.4 SECONDS (12.1-14.4)
== END ==
LOC: M SHH 11:30
DX: I26.99 Other pulmonary embolism without acute cor pulmonale (principal)
CPT/HCPCS: 85610

== ENCOUNTER → 2018-08-29 | Outpatient (REF) | payer MEDICARE, OTHER ==
[2018-08-29 13:56] LABS: PROTHROMBIN TIME 17.4 SECONDS (12.1-14.4)
== END ==
LOC: M SHH 13:00
DX: I26.99 Other pulmonary embolism without acute cor pulmonale (principal)
CPT/HCPCS: 85610

== ENCOUNTER 2018-09-05 10:37 | Outpatient (REF) | payer MEDICARE, OTHER ==
[2018-09-09 13:00] LABS: INR 1.21; PROTHROMBIN TIME 15.5 SECONDS (12.1-14.4)
== END 2018-09-09 ==
LOC: M SHH 10:37
DX: I26.99 Other pulmonary embolism without acute cor pulmonale (principal)
CPT/HCPCS: 85610

== ENCOUNTER → 2018-09-20 | Outpatient (CLI) | payer MEDICARE, OTHER ==
[2018-09-20 12:07] LABS: INR 1.17; PROTHROMBIN TIME 15.1 SECONDS (12.1-14.4)
[2018-09-20 18:33] LABS: POTASSIUM SERUM 3.6 MEQ/L (3.5-5.1)
== END ==
LOC: M LAB 11:12
DX: E87.6 Hypokalemia (principal); Z79.01 Long term (current) use of anticoagulants
CPT/HCPCS: 84132

== ENCOUNTER → 2018-09-29 | Outpatient (CLI) | payer MEDICARE, OTHER ==
[2018-09-29 10:34] LABS: INR 3.23; PROTHROMBIN TIME 33.7 SECONDS (12.1-14.4)
== END ==
LOC: M LAB 09:50
DX: Z51.81 Encounter for therapeutic drug level monitoring (principal); Z79.01 Long term (current) use of anticoagulants; Z86.711 Personal history of pulmonary embolism
CPT/HCPCS: 85610

== ENCOUNTER 2019-04-04 14:15 | Inpatient (IN) | payer MEDICARE, OTHER ==
[~2019-04-04] VITALS: Ht 157.5 cm; Wt 65.9 kg
[~2019-04-04 14:15] MED LIST changes: +AMLO10TA PO; -AMLO10TA2 PO; +AMLO10TA5 PO; +AZIT500T2 PO; +CEPA1LOZ2 MT; +CEPA1LOZ2 PO; +CITA20TA7 PO; +COLA100C5 PO; +COUM1TAB17 PO; +COUM1TAB19 PO; +DOXY100T PO; +LEVA1TAB2 PO; +LEVA250T13 PO; -LOSA100T36 PO; +LOSA100T50 PO; +MIRA3350 PO; +NICO14DI3 TD; +NICO21DI3 TD; -NICO21PAT TD; +OXYC1TAB23 PO; +PEG1POW PO; +PRED20TA PO; +RANI150T PO; +SENN18TA PO; +SENN1TAB10 PO; -SIMV80TA PO; +SIMV80TA13 PO; +THEO400T4 PO; +VENTAER INH; +VITA-122 PO; +WARF-58 PO; +WARF-60 PO; +ZANT150T15 PO
[2019-04-04] MEDS ORDERED: HYDR12.55 PO (14:41)
[2019-04-04] MEDS ORDERED: WARF-58 PO (14:41)
[2019-04-04] MEDS ORDERED: IPRATROPIUM 0.5MG/ALBUTEROL 2.5MG INH SOL UD 3ML (DUONEB)(J7620) NEB ONE (15:00)
[2019-04-04 15:01] LABS: BASO # 0.1 10^3/uL (0.0-0.2); BASO % 0.7 % (0.0-1.0); EOS # 0.3 10^3/uL (0.0-0.50); EOS % 2.2 % (0.0-3.0); HEMATOCRIT 35.6 % (36.0-47.0); HEMOGLOBIN 10.7 g/dl (12.0-15.5); LYMPH % 23.1 % (24.0-44.0); MEAN CORPUSCULAR HEMOGLOBIN 23.2 pg (27.0-33.0); MEAN CORPUSCULAR HGB CONC 30.1 g/dl (32.0-36.5); MEAN CORPUSCULAR VOLUME 77.1 fl (80.0-96.0); MONO # 1.2 10^3/uL (0.0-0.8); NEUTROPHILS # 8.3 10^3/uL (1.8-7.7); NEUTROPHILS % 64.7 % (36.0-66.0); PLATELET COUNT, AUTOMATED 424 10^3/uL (150-450); RED BLOOD COUNT 4.62 10^6/uL (4.00-5.40); WHITE BLOOD COUNT 12.8 10^3/uL (4.0-10.0)
[2019-04-04 15:28] LABS: ALT/SGPT 19 U/L (12-78); AMYLASE 44 U/L (25-115); BILIRUBIN,DIRECT < 0.1 MG/DL (0.0-0.2); BILIRUBIN,TOTAL 0.2 MG/DL (0.2-1.0); BLOOD UREA NITROGEN 15 MG/DL (7-18); CALCIUM LEVEL 8.5 MG/DL (8.8-10.2); CARBON DIOXIDE LEVEL 27 MEQ/L (21-32); CHLORIDE LEVEL 108 MEQ/L (98-107); CPK CREATINE PHOSPHOKINASE 59 U/L (26-192); CREATININE FOR GFR 0.81 MG/DL (0.55-1.30); GLOMERULAR FILTRATION RATE > 60.0 (>39); GLUCOSE, FASTING 182 MG/DL (70-100); LIPASE 118 U/L (73-393); MB/CK RELATIVE INDEX 2.88 (< OR =4); POTASSIUM SERUM 4.3 MEQ/L (3.5-5.1); SODIUM LEVEL 140 MEQ/L (136-145); TOTAL PROTEIN 6.8 GM/DL (6.4-8.2); TROPONIN I 0.02 NG/ML (< 0.10)
[2019-04-04 15:33] LABS: INR 3.41; PROTHROMBIN TIME 35.2 SECONDS (12.1-14.4)
[2019-04-04] MEDS ORDERED: ISOVUE-370 76% 100ML VIAL (Q9967) As Ordered ONE (15:34)
--- NOTE | 2019-04-04 16:59 | REP ---
HISTORY: Abdominal pain. COMPARISON: 01/07/2018, a noncontrast enhanced exam. CONTRAST: 100 mL [id number] There are chronic lung base changes, status quo. There are no pleural or pericardial effusions. The liver, gallbladder, spleen, pancreas, adrenal glands and kidneys are unchanged. There is an unchanged right adrenal gland nodule and an unchanged duodenal diverticulum. Once again, there is a ventral hernia which is unchanged in size and through which only mesentery protrudes. The aperture is approximately 2 cm. There is no significant change in the appearance of the bowel loops or their mesenteries. There is no free fluid or free air. The appendix is well visualized and is within normal limits. The abdominal aorta and periaortic regions are essentially unchanged. There is descending colon diverticulosis, status quo. CT PELVIS: There is no mass or adenopathy. There is no free fluid or free air. There is descending colon and sigmoid colon diverticulosis, status quo. Bone window technique throughout the exam shows no significant change in the appearance of the osseous structures. IMPRESSION: No significant change from the prior exam. No acute disease. There is a stable right adrenal gland nodule and stable ventral hernia. There is diverticulosis as described above. Electronically Signed by Foster Jean DO 04/04/2019 05:08 P
[2019-04-04] MEDS ORDERED: MORPHINE 2 MG/ML 1ML SYRINGE (J2270) IV ONE (17:30)
[2019-04-04] MEDS ORDERED: ZOCO80TA PO (17:56)
[2019-04-04] MEDS ORDERED: OXYC1TAB23 PO (17:56)
[2019-04-04] MEDS ORDERED: AMLO10TA PO (17:56)
[2019-04-04] MEDS ORDERED: PANT40TA3 PO (17:56)
[2019-04-04] MEDS ORDERED: WARF4TAB52 PO (17:56)
[2019-04-04] MEDS ORDERED: GLUCAGON FOR INJ 1 MG VIAL (J1610) SC PRN (18:15)
[2019-04-04] MEDS ORDERED: GOLYTELY SOLN 4000 ML BTL PO ONE (18:15)
[2019-04-04] MEDS ORDERED: GLUCOSE 4 GM CHEW TABLET PO PRN (18:15)
[2019-04-04] MEDS ORDERED: DEXTROSE 50% 50 ML SYRINGE IV PRN (18:15)
[2019-04-04] MEDS: HumaLOG INSULIN (NovoLOG) PER UNIT SC SCH ×2 (18:36→21:00)
--- NOTE | 2019-04-04 19:46 | ECGEPIP ---
Stationary ECG Study [facility] - ED Test Date: 2019-04-04 Pat Name: HERB MAYA Department: Room: - Gender: F Lasting Room Supervisor: AKILAH : [id number] Requested By: FELIX Solano Order Number: [id number] Reading MD: Jez Mota Measurements Intervals [place] Rate: 103 P: -90 AR: 142 QRS: -79 QRSD: 99 T: 267 QT: 331 QTc: 434 Interpretive Statements ECTOPIC ATRIAL TACHYCARDIA MARKED LEFT AXIS DEVIATION LEFT VENTRICULAR HYPERTROPHY AND ST-T CHANGE Previous rhythm on tracing done 12-08-18 was sinus Electronically Signed On 04-04-2019 19:45:47 EDT by Jez Mota
[2019-04-04] MEDS: ALBUTEROL SULFATE 2.5 MG/0.5 ML INH NEB SOLN NEB SCH (20:00)
[2019-04-04 20:34] VITALS: BP 150/40
[2019-04-04] MEDS: ADVAIR HFA 230/21MCG INHALER INH SCH (21:00)
[2019-04-04] MEDS: THEOPHYLLINE (THEO-24) 100MG SR **CAPSULE PO SCH (22:05)
[2019-04-04] MEDS: amLODIPine 10 MG TAB PO SCH (22:06)
[2019-04-05] VITALS (17 sets, daily range): BP systolic 117–166; BP diastolic 45–70; O2SAT 96–100
[2019-04-05 00:46] LABS: HEMATOCRIT 25.6 % (36.0-47.0)
[2019-04-05 00:54] LABS: INR 2.27; PROTHROMBIN TIME 25.5 SECONDS (12.1-14.4)
[2019-04-05 00:58] LABS: HEMOGLOBIN 7.7 g/dl (12.0-15.5)
[2019-04-05] MEDS: ALBUTEROL SULFATE 2.5 MG/0.5 ML INH NEB SOLN NEB SCH ×4 (02:37→19:57)
[2019-04-05] MEDS: LEVOTHYROXINE 75MCG TABLET (0.075MG) PO SCH (06:32)
--- NOTE | 2019-04-05 06:44 | HPEPDOC ---
General Date of Admission 04/04/19 Primary Care Physician: A Chief Complaint The patient is a 79-year-old female admitted with a reason for visit of rectal bleeding. Source: Patient, RN/MD, Old records Exam Limitations: No limitations History of Present Illness 79 year old female with PMH of COPD with chronic respiratory failure with hypoxia, history of pulmonary embolism, Hypertension, Diabetes mellitus, Hypothyroidism, Chronic back and shoulder pain, Dyslipidemia , diverticulosis, hiatal hernia, presented to the ED for bleeding per rectum which started this morning. The bleeding is painless and bright red in color. No associated diarrhea, nausea or vomiting. She never had this kind of problem before. In the ED she continued to have bright red bleeding per rectum. Her lab work was significant for an INR of 3.4 , her HH was 10.3 which is close to her baseline. Patient is being admitted to the hospitalist service for acute GIB. In the ED kim leal was given 1 unit of FFP to reverse the INR. She also complained of increased sob today . She says she did have a cold about a month ago and got a course of azithromycin but with the change of weather her COPD has been acting up. But today the bleeding has been making her very anxious and afraid that has worsened her breathing. She has some chronic cough and wheezing but no phlegm production. Home Medications Scheduled Amlodipine Besylate (Norvasc) 10 Mg Tablet, 10 MG PO QHS, (Reported) Apixaban (Eliquis) 5 Mg Tablet, 5 MG PO ASDIRECTED 10 MG (2 TABS) TWICE PER DAY FOR 7 DAYS THEN 5 MG (1 TAB) TWICE PER DAY Cholecalciferol (Vitamin D3) (Vitamin D3) 1,000 Unit Tab, 1,000 UNITS PO DAILY, (Reported) Ezetimibe (Zetia) 10 Mg Tab, 10 MG PO QHS, (Reported) Glipizide (Glipizide Xl) 5 Mg Tab, 5 MG PO DAILY, (Reported) Levothyroxine Sodium (Levothyroxine Sodium) 75 Mcg Tab, 75 MCG PO DAILY, (Reported) Losartan Potassium (Losartan Potassium) 100 Mg Tab, 100 MG PO QHS, (Reported) Metformin HCl (Metformin HCl) 500 Mg Tab, 500 MG PO TID, (Reported) PATIENT STATES SHE IS OFF OF THIS MED FOR THE NEXT 48 HOURS Salmeterol/Fluticasone (Advair 500-50 Diskus) 28 Puff/Inhaler Aerp, 1 PUFF INH BID, (Reported) Simvastatin (Zocor) 80 Mg Tablet, 80 MG PO QHS, (Reported) Theophylline Anhydrous (Theophylline) 400 Mg Tabcr, 400 MG PO QPM, (Reported) Tiotropium [place] (Spiriva) 18 Mcg Cap, 1 PUFF INH DAILY, (Reported) Scheduled PRN Albuterol Sulf (Albuterol Sulfate) 2.5 Mg/3 Ml Nebu, 2.5 MG INH Q4H PRN for SHORTNESS OF BREATH, (Reported) Albuterol Sulfate (Ventolin Hfa) 108 Mcg/Act Aer, 2 PUFF INH Q4H PRN for SHORTN ESS OF BREATH, (Reported) Oxycodone HCl/Acetaminophen (Oxycodone-Acetaminophen 5-325) 1 Each Tablet, 1 TAB PO TID PRN for PAIN, (Reported) Pantoprazole Sodium (Pantoprazole Sodium) 40 Mg Tablet.dr, 40 MG PO DAILY PRN for ACID REFLUX, (Reported) PATIENT STATED SHE ONLY USES THIS NEEDED Allergies Coded Allergies: Cephalosporins (Verified Allergy, Unknown, RASH, 04/04/19) Sulfa (Sulfonamide Antibiotics) (Verified Allergy, Unknown, 04/04/19) carisoprodol (Verified Allergy, Unknown, 04/04/19) codeine (Verified Allergy, Unknown, 04/04/19) amoxicillin (Verified Adverse Reaction, Unknown, VOMIT, 04/04/19) clavulanic acid (Verified Adverse Reaction, Unknown, VOMIT, 04/04/19) Past Medical History Medical History COPD , History of pulmonary embolism , Hypertension , Diabetes mellitus , Hypothyroidism , Chronic back and shoulder pain , Dyslipidemia Surgical History Partial thyroidectomy, tonsillectomy , umbilical hernia repair, b/l cataract removal Family History Significant Family History: Cancer (in siblings), Diabetes (father), Heart disease (mother), Hypertension (mother) Social History * Smoker: current smoker, greater than 1 pack/day Alcohol: Denies Drugs: denies A-FIB/CHADSVASC A-FIB History Current/History of A-Fib/PAF?: No Current Oral Anticoagulant The: Yes Review of Systems Constitutional: Denies: Chills, Fever, Night Sweats Eyes: Denies: Pain, Vision change ENT: Denies: Head Aches, Ear Pain, Dysphagia Skin: Denies: Rash, Lesions, Breakdown Pulmonary: Reports: Dyspnea, Cough Cardiovascular: Denies: Chest Pain, Palpitations, Orthopnea Gastrointestinal: Reports: Abdominal Pain, Hematochezia; Denies: Nausea, Vomiting, Diarrhea Genitourinary: Denies: Dysuria, Frequency, Incontinence, Retention Hematologic: Denies: Bruising, Bleeding Excessively Musculoskeletal: Reports: Back Pain Neurological: Denies: Weakness, Numbness, Change in speech, Confusion Physical Examination General Exam: Positive: Alert, Cooperative, No Acute Distress Eye Exam: Positive: Conjunctiva & lids normal, EOMI; Negative: Sclera icteric ENT Exam: Positive: Atraumatic, Mucous membr. moist/pink, Pharynx Normal Neck Exam: Positive: Supple; Negative: JVD, thyromegaly Chest Exam: Positive: Rales, Rhonchi, Wheezing, Diminished Heart Exam: Positive: Tachycardic, Regular Rhythm, Normal S1, Normal S2; Negative: Gallops, Murmurs, Rubs Telemetry: Positive: Sinus, Tachycardia Abdomen Exam: Positive: BS Hyperactive, Soft, Tenderness (left illiac fossa and left lumber region) Extremity Exam: Positive: Normal pulses; Negative: Clubbing, Cyanosis, Edema Skin Exam: Positive: Nl turgor and temperature; Negative: Breakdown, Lesion Neuro Exam: Positive: Normal Speech, Strength at 5/5 X4 ext, Normal Tone Psych Exam: Positive: Anxiety, Memory Intact, Oriented x 3 Vital Signs Vital Signs Date Time Temp Pulse Resp B/P (MAP) Pulse Ox O2 Delivery O2 Flow Rate FiO2 04/04/19 17:00 96 21 98 Nasal Cannula 2.0 04/04/19 16:09 176/75 (108) 04/04/19 14:16 99.7 Laboratory Data Labs 24H Laboratory Tests 2 04/04/19 14:49: Immature Granulocyte % (Auto) 0.3, White Blood Count 12.8H, Red Blood Count 4.62, Hemoglobin 10.7L, Hematocrit 35.6L, Mean Corpuscular Volume 77.1L, Mean Corpuscular Hemoglobin 23.2L, Mean Corpuscular Hemoglobin Concent 30.1L, Red Cell Distribution Width 17.6H, Platelet Count 424, Neutrophils (%) (Auto) 64.7, Lymphocytes (%) (Auto) 23.1L, Monocytes (%) (Auto) 9.0H, Eosinophils (%) (Auto) 2.2, Basophils (%) (Auto) 0.7, Neutrophils # (Auto) 8.3H, Lymphocytes # (Auto) 3.0, Monocytes # (Auto) 1.2H, Eosinophils # (Auto) 0.3, Basophils # (Auto) 0.1, Nucleated Red Blood Cells % (auto) 0.0, Prothrombin Time 35.2H, Prothromb Time International Ratio 3.41, Anion Gap 5L, Glomerular Filtration Rate > 60.0, Lactic Acid Level 1.7, Calcium Level 8.5L, Aspartate Amino Transf (AST/SGOT) 17, Alanine Aminotransferase (ALT/SGPT) 19, Alkaline Phosphatase 62, Total Bilirubin 0.2, Direct Bilirubin < 0.1, Total Creatine Kinase 59, Creatine Kinase MB 2.0, Creatine Kinase MB Relative Index 2.88, Troponin I 0.02, Total Protein 6.8, Albumin 3.0L, Albumin/Globulin Ratio 0.79L, Amylase Level 44, Lipase 118 CBC/BMP Laboratory Tests 04/04/19 14:49 Red Blood Count 4.62, Mean Corpuscular Volume 77.1 L, Mean Corpuscular Hemoglobin 23.2 L, Mean Corpuscular Hemoglobin Concent 30.1 L, Red Cell Distribution Width 17.6 H, Neutrophils (%) (Auto) 64.7, Lymphocytes (%) (Auto) 23.1 L, Monocytes (%) (Auto) 9.0 H, Eosinophils (%) (Auto) 2.2, Basophils (%) (Auto) 0.7, Neutrophils # (Auto) 8.3 H, Lymphocytes # (Auto) 3.0, Monocytes # (Auto) 1.2 H, Eosinophils # (Auto) 0.3, Basophils # (Auto) 0.1 Assessment/Plan 79 year old female with PMH of COPD with chronic respiratory failure with hypoxia, history of pulmonary embolism, Hypertension, Diabetes mellitus, Hypothyroidism, Chronic back and shoulder pain, Dyslipidemia , diverticulosis, hiatal hernia, presented to the ED for bleeding per rectum which started this morning. The bleeding is painless and bright red in color. She never had this kind of problem before. In the ED she continued to have bright red bleeding per rectum. Her lab work was significant for an INR of 3.4 , her HH was 10.3 which is close to her baseline. Patient is being admitted to the hospitalist service for acute GIB. In the ED patient was given 1 unit of FFP to reverse the INR. She also complained of increased sob today . She says she did have a cold about a month ago and got a course of azithromycin but with the change of weather her COPD has been acting up. But today the bleeding has been making her very anxious and afraid that has worsened her breathing Acute lower GIB most probably diverticular bleeding CT abdomen no acute pathology will check hh q [address] Bowling, possible colonoscopy tomorrow if bleeding does not stop. full liquid diet, golytely tonight. Transfuse for HH of 8.0 FFP to reverse the INR given. COPD with chronic hypoxic respiratory failure continue advair, spiriva, duonebs, theophylline. oxygen Hypertension will continue amlodipine but hold losartan History of pulmonary hypertension in 2017 will hold coumadin due to GIB. Diabetes hold metformin and glipizide will give lispro as per sliding scale Hypothyroid continue synthroid Hyprlipidemia will hold statin and ezetimibe for now. Hiatal hernia will cocntinue omeprazole. DVT prophylaxis TEDS and SCDs. Plan / VTE VTE Prophylaxis Ordered?: Yes CLAUDE TORRES MD April 04, 2019 17:23
[2019-04-05] MEDS: HumaLOG INSULIN (NovoLOG) PER UNIT SC SCH ×4 (07:30→20:23)
[2019-04-05] MEDS: TIOTROPIUM INHALER/CAPSULE (SPIRIVA) INH SCH (08:01)
[2019-04-05] MEDS: ADVAIR HFA 230/21MCG INHALER INH SCH ×2 (08:02→19:58)
[2019-04-05 08:05] LABS: BASO # 0.1 10^3/uL (0.0-0.2); BASO % 0.7 % (0.0-1.0); EOS # 0.3 10^3/uL (0.0-0.50); HEMATOCRIT 32.4 % (36.0-47.0); LYMPH # 2.2 10^3/uL (1.5-4.5); LYMPH % 20.1 % (24.0-44.0); MEAN CORPUSCULAR HEMOGLOBIN 24.9 pg (27.0-33.0); MEAN CORPUSCULAR HGB CONC 31.5 g/dl (32.0-36.5); MONO # 0.8 10^3/uL (0.0-0.8); MONO % 7.6 % (0.0-5.0); NEUTROPHILS # 7.5 10^3/uL (1.8-7.7); NEUTROPHILS % 68.1 % (36.0-66.0); PLATELET COUNT, AUTOMATED 336 10^3/uL (150-450)
[2019-04-05 08:10] LABS: HEMOGLOBIN 10.2 g/dl (12.0-15.5)
[2019-04-05 08:18] LABS: INR 2.19; PROTHROMBIN TIME 24.8 SECONDS (12.1-14.4)
[2019-04-05 08:32] LABS: BLOOD UREA NITROGEN 12 MG/DL (7-18); CALCIUM LEVEL 8.5 MG/DL (8.8-10.2); CARBON DIOXIDE LEVEL 27 MEQ/L (21-32); CHLORIDE LEVEL 108 MEQ/L (98-107); CREATININE FOR GFR 0.64 MG/DL (0.55-1.30); GLOMERULAR FILTRATION RATE > 60.0 (>39); GLUCOSE, FASTING 109 MG/DL (70-100); POTASSIUM SERUM 4.4 MEQ/L (3.5-5.1); SODIUM LEVEL 141 MEQ/L (136-145)
[2019-04-05] MEDS ORDERED: glipiZIDE XL 5 MG TABCR PO SCH (09:00)
[2019-04-05] MEDS: PERCOCET 5MG/325MG TAB PO PRN (09:14)
--- NOTE | 2019-04-05 10:26 | REP ---
PORTABLE CHEST X-RAY: Single view. HISTORY: Shortness of breath. Comparison chest x-ray December 08, 2018. FINDINGS: EKG monitoring electrodes overlie the chest. Heart is mildly enlarged unchanged. The lungs are hyperinflated. Interstitial markings are diffusely and mildly prominent consistent with some degree of interstitial fibrosis. No acute infiltrate is seen. Pleural angles are sharp. IMPRESSION: Evidence of COPD. No acute infiltrate. Mild cardiomegaly. Electronically Signed by Guerrero Guerrero MD 04/05/2019 03:40 P
--- NOTE | 2019-04-05 11:25 | IPNPDOC ---
Subjective Date Seen The patient was seen on 04/05/19. Subjective Chief Complaint/HPI GIB Events since last encounter Pateint has continued to bleed overnight with drop in HH to 7.0 . She received 2 units of PRBC overnight. Her INR is still elevated so will give another unit of FFP. She continues to have wheezing however does not complain of any SOB . Says she always wheezes and her breathing is OK. She does complain of feeling very cold and chilly. She is still trying to drink the golytely. Has finished about a half. No nausea or vomiting. still has soreness in the abdomen. Objective Physical Examination General Exam: Positive: Alert, Cooperative, No Acute Distress Eye Exam: Positive: Conjunctiva & lids normal, EOMI; Negative: Sclera icteric ENT Exam: Positive: Atraumatic, Mucous membr. moist/pink, Pharynx Normal Neck Exam: Positive: Supple; Negative: JVD, thyromegaly Chest Exam: Positive: Rales, Rhonchi, Wheezing, Diminished Heart Exam: Positive: Tachycardic, Regular Rhythm, Normal S1, Normal S2; Negative: Gallops, Murmurs, Rubs Telemetry: Positive: Sinus, Tachycardia Abdomen Exam: Positive: BS Hyperactive, Soft, Tenderness (left illiac fossa and left lumber region) Extremity Exam: Positive: Normal pulses; Negative: Clubbing, Cyanosis, Edema Skin Exam: Positive: Nl turgor and temperature; Negative: Breakdown, Lesion Neuro Exam: Positive: Normal Speech, Strength at 5/5 X4 ext, Normal Tone Psych Exam: Positive: Anxiety, Memory Intact, Oriented x 3 Assessment /Plan Assessment 79 year old female with PMH of COPD with chronic respiratory failure with h ypoxia, history of pulmonary embolism, Hypertension, Diabetes mellitus, Hypothyroidism, Chronic back and shoulder pain, Dyslipidemia , diverticulosis, hiatal hernia, presented to the ED for bleeding per rectum which started this morning. The bleeding is painless and bright red in color. She never had this kind of problem before. In the ED she continued to have bright red bleeding per rectum. Her lab work was significant for an INR of 3.4 , her HH was 10.3 which is close to her baseline. Patient is being admitted to the hospitalist service for acute GIB. In the ED patient was given 1 unit of FFP to reverse the INR. She also complained of increased sob today . She says she did have a cold about a month ago and got a course of azithromycin but with the change of weather her COPD has been acting up. But today the bleeding has been making her very anxious and afraid that has worsened her breathing She was admitted for GIB. Acute lower GIB most probably diverticular bleeding on the back ground of being on coumadin. CT abdomen no acute pathology will check hh q [address] Bowling Colonoscopy today. full liquid diet, finish golytely Transfuse for HH of 8.0 FFP x2 to reverse the INR Acute blood loss anemia from persistent GIB received 2 units of PRBC. COPD with chronic hypoxic respiratory failure CXR no acute infiltrates, shows features of advanced COPD. continue advair, spiriva, duonebs, theophylline. oxygen Hypertension will continue amlodipine but hold losartan History of pulmonary hypertension in 2017 will hold coumadin due to GIB. Diabetes hold metformin and glipizide will give lispro as per sliding scale Hypothyroid continue synthroid Hyprlipidemia will hold statin and ezetimibe for now. Hiatal hernia will cocntinue omeprazole. DVT prophylaxis TEDS and SCDs. Plan/VTE VTE Prophylaxis Ordered?: Yes VS, I&O, 24H, Fishbone Vital Signs/I&O Vital Signs Date Time Temp Pulse Resp B/P (MAP) Pulse Ox O2 Delivery O2 Flow Rate FiO2 04/05/19 10:00 96 Nasal Cannula 2.0 04/05/19 09:14 22 04/05/19 08:00 99.0 89 119/57 (77) Laboratory Data 24H LABS Laboratory Tests 2 04/04/19 14:49: Immature Granulocyte % (Auto) 0.3, White Blood Count 12.8H, Red Blood Count 4.62, Hemoglobin 10.7L, Hematocrit 35.6L, Mean Corpuscular Volume 77.1L, Mean Corpuscular Hemoglobin 23.2L, Mean Corpuscular Hemoglobin Concent 30.1L, Red Cell Distribution Width 17.6H, Platelet Count 424, Neutrophils (%) (Auto) 64.7, Lymphocytes (%) (Auto) 23.1L, Monocytes (%) (Auto) 9.0H, Eosinophils (%) (Auto) 2.2, Basophils (%) (Auto) 0.7, Neutrophils # (Auto) 8.3H, Lymphocytes # (Auto) 3.0, Monocytes # (Auto) 1.2H, Eosinophils # (Auto) 0.3, Basophils # (Auto) 0.1, Nucleated Red Blood Cells % (auto) 0.0, Prothrombin Time 35.2H, Prothromb Time International Ratio 3.41, Anion Gap 5L, Glomerular Filtration Rate > 60.0, Lactic Acid Level 1.7, Calcium Level 8.5L, Aspartate Amino Transf (AST/SGOT) 17, Alanine Aminotransferase (ALT/SGPT) 19, Alkaline Phosphatase 62, Total Bilirubin 0.2, Direct Bilirubin < 0.1, Total Creatine Kinase 59, Creatine Kinase MB 2.0, Creatine Kinase MB Relative Index 2.88, Troponin I 0.02, Total Protein 6.8, Albumin 3.0L, Albumin/Globulin Ratio 0.79L, Amylase Level 44, Lipase 118 04/04/19 18:32: Bedside Glucose (Misc Panel) 105 04/04/19 19:34: Bedside Glucose (Misc Panel) 98 04/05/19 00:02: Prothrombin Time 25.5H, Prothromb Time International Ratio 2.27 04/05/19 07:43: Bedside Glucose (Misc Panel) 112H 04/05/19 07:44: Immature Granulocyte % (Auto) 0.5, White Blood Count 11.0H, Red Blood Count 4.10, Hemoglobin 10.2#L, Hematocrit 32.4L, Mean Corpuscular Volume 79.0L, Mean Corpuscular Hemoglobin 24.9L, Mean Corpuscular Hemoglobin Concent 31.5L, Red Cell Distribution Width 16.9H, Platelet Count 336, Neutrophils (%) (Auto) 68.1H, Lymphocytes (%) (Auto) 20.1L, Monocytes (%) (Auto) 7.6H, Eosinophils (%) (Auto) 3.0, Basophils (%) (Auto) 0.7, Neutrophils # (Auto) 7.5, Lymphocytes # (Auto) 2.2, Monocytes # (Auto) 0.8, Eosinophils # (Auto) 0.3, Basophils # (Auto) 0.1, Nucleated Red Blood Cells % (auto) 0.0, Prothrombin Time 24.8H, Prothromb Time International Ratio 2.19, Activated Partial Thromboplast Time 39.0H, Anion Gap 6L, Glomerular Filtration Rate > 60.0, Blood Urea Nitrogen 12, Creatinine 0.64, Sodium Level 141, Potassium Level 4.4, Chloride Level 108H, Carbon Dioxide Level 27, Calcium Level 8.5L CBC/BMP Laboratory Tests 04/04/19 14:49 Red Blood Count 4.62, Mean Corpuscular Volume 77.1 L, Mean Corpuscular Hemoglobin 23.2 L, Mean Corpuscular Hemoglobin Concent 30.1 L, Red Cell Distribution Width 17.6 H, Neutrophils (%) (Auto) 64.7, Lymphocytes (%) (Auto) 23.1 L, Monocytes (%) (Auto) 9.0 H, Eosinophils (%) (Auto) 2.2, Basophils (%) (Auto) 0.7, Neutrophils # (Auto) 8.3 H, Lymphocytes # (Auto) 3.0, Monocytes # (Auto) 1.2 H, Eosinophils # (Auto) 0.3, Basophils # (Auto) 0.1 04/05/19 00:26 04/05/19 07:44 Red Blood Count 4.10, Mean Corpuscular Volume 79.0 L, Mean Corpuscular Hemoglobin 24.9 L, Mean Corpuscular Hemoglobin Concent 31.5 L, Red Cell Distribution Width 16.9 H, Neutrophils (%) (Auto) 68.1 H, Lymphocytes (%) (Auto) 20.1 L, Monocytes (%) (Auto) 7.6 H, Eosinophils (%) (Auto) 3.0, Basophils (%) (Auto) 0.7, Neutrophils # (Auto) 7.5, Lymphocytes # (Auto) 2.2, Monocytes # (Auto) 0.8, Eosinophils # (Auto) 0.3, Basophils # (Auto) 0.1, Calcium Level 8.5 L CLAUDE TORRES MD April 05, 2019 11:25
[2019-04-05 12:07] LABS: HEMATOCRIT 28.5 % (36.0-47.0); HEMOGLOBIN 9.2 g/dl (12.0-15.5)
[2019-04-05] MEDS ORDERED: LIDOCAINE 2% INJ 100 MG/5 ML SDV (FOR ANES.) As Ordered ONE (13:28)
[2019-04-05] MEDS ORDERED: PROPOFOL 200 MG/20 ML VIAL As Ordered ONE (13:28)
[2019-04-05] MEDS ORDERED: ALBUTEROL SULFATE 2.5 MG/0.5 ML INH NEB SOLN As Ordered ONE (14:06)
--- NOTE | 2019-04-05 14:11 | CR.PDOC ---
General Date of Consultation: April 05, 2019 Referring Provider: SHEILA IVERSON MD Attending Physician: ALISA JOHNSON MD Consultation Primary physician/ hospitalist: Dr. Sheila Iverson Reason for consult: Rectal Bleeding. HPI: 79 year old female with COPD ( On home O2), HTN, DM type 2 ( not on insulin), hypothyroidism, Chronic back pain, DLD, history of PE on Coumadin, was admitted through ER for rectal bleeding. Patient reported acute onset bright red bleeding per rectum since yesterday morning. Patient denies any abdominal pain, and any other Gi symptoms, no prior similar symptoms. Patient is noted with acute drop in H/H and INR of 3.4 in labs. Patient received FFP, PRBC transfusion. Patient had atleast 4-5 bloody bowel movements since it started and reports after taking golytely it is gradually clearing up. Pertinent negative GI symptoms: Patient denies nausea, vomiting, abdominal pain, loss of appetite, early satiety or unintentional weight loss. No history of hematemesis, melena or hematochezia. Patient reports regular bowel movements prior this episode.. Review of Systems: GI: as stated above CVS: No chest pain, No palpitations, No leg swelling. RS: Has chronic wheezing and Shortness of breath with intermittent cough with COPD. PH[employer] M[employer]ER: No dizziness, No motor weakness, No sensory problems Hematology: No bruising, No gum bleeding, Musculoskeletal: No joint pain, ambulating well. Skin: No rash : No hematuria, No burning sensation of the urine ENT: No ear discharge/ pain, No dysphagia. Eyes: No photophobia. Jaundice Home medications: reviewed. Antithrombotic agents - Coumadin Medical h/o: As above. Surgical h/o: None on abdomen. Social h/o: Alcohol social , smoking active smoker, IVDA/ drugs Denies. Family h/o of GI cancers - None Prior Endoscopies: When, who, if remember- findings --- EGD done for heartburn normal except hiatal hernia. --- Colonoscopy done by Dr. Weaver in 2013 for screening noted 2 polyps Tubular adenoma and serrated polyp and Sigmoid diverticulosis. Prior GI evaluations: Previously seen by Dr. Weaver. Exam: Vitals: reviewed General: Alert and oriented x 3, not in distress HEENT: NO pallor, no icterus. Normal oropharynx, NO cervical lymph nodes. Chest: symmetric with bilateral air entry, wheezing and crepitations. CVS: S1, S2 heard, normal, no murmurs . Abdomen: non-distended, no surgical scars, soft, non-tender, no palpable masses, normal bowel sounds heard. Has soft umbilical hernia. Rectal exam: Patient refused / Deferred at this time in view of scheduled colonoscopy. Extremities: no pedal edema, pulses palpable. PH[employer] M[employer] CLE[employer]ER: no focal motor or sensory deficits. Moves all extremities Skin: no rash. Labs: reviewed. Acute drop in H/H compared to baseline. Imaging: reviewed Impression: -- Acute onset painless rectal bleeding and drop in H/H in patient with prior know diverticulosis and supratherapeutic INR DDx- Acute Diverticular bleeding vs AVM bleeding vs less likely Colon polyp vs hemorrhoidal bleeding. -- Severe COPD on home oxygen. Recommendations: - Patient educated about the test results, possible differential diagnoses and All questions answered. - Clear liquid diet for now. - Monitor H/H and transfuse as needed to keep hemoglobin levels above 8gm/dL . - Monitor INR and correction of coagulopathy as per primary team. Patient is educated about the risks and benefits of reversal of anticoagulation. - management of COPD as per primary team. - Patient will be scheduled for urgent Colonoscopy after bowel prep. - The procedure, indications, risks (bleeding, perforation, infection, hypotension, respiratory depression, allergy, need for endotracheal intubation, surgery, colostomy, cardiac arrest, even ), benefits, limitations (e.g., missing a lesion), and all other alternatives (including no intervention) were explained to the patient who understood and agreed for the procedure. - Post procedure follow up the procedure document recommendations. Plan of care discussed with patient and primary team. Patient verbalized understanding and agreed with the plan. Laboratory Data CBC/BMP Laboratory Tests 04/04/19 14:49 04/05/19 00:26 04/05/19 07:44 04/05/19 11:45 Allergies Coded Allergies: Cephalosporins (Verified Allergy, Unknown, RASH, 04/04/19) Sulfa (Sulfonamide Antibiotics) (Verified Allergy, Unknown, 04/04/19) carisoprodol (Verified Allergy, Unknown, 04/04/19) codeine (Verified Allergy, Unknown, 04/04/19) amoxicillin (Verified Adverse Reaction, Unknown, VOMIT, 5/7/19) clavulanic acid (Verified Adverse Reaction, Unknown, VOMIT, 04/04/19) Home Medications Scheduled Amlodipine Besylate (Norvasc) 10 Mg Tablet, 10 MG PO QHS, (Reported) Cholecalciferol (Vitamin D3) (Vitamin D3) 1,000 Unit Tab, 1,000 UNITS PO DAILY, (Reported) Ezetimibe (Zetia) 10 Mg Tab, 10 MG PO QHS, (Reported) Glipizide (Glipizide Xl) 5 Mg Tab, 5 MG PO DAILY, (Reported) Levothyroxine Sodium (Levothyroxine Sodium) 75 Mcg Tab, 75 MCG PO DAILY, (Reported) Losartan Potassium (Losartan Potassium) 100 Mg Tab, 100 MG PO QHS, (Reported) Metformin HCl (Metformin HCl) 500 Mg Tab, 500 MG PO TID, (Reported) PATIENT STATES SHE IS OFF OF THIS MED FOR THE NEXT 48 HOURS Salmeterol/Fluticasone (Advair 500-50 Diskus) 28 Puff/Inhaler Aerp, 1 PUFF INH BID, (Reported) Simvastatin (Zocor) 80 Mg Tablet, 80 MG PO QHS, (Reported) Theophylline Anhydrous (Theophylline) 400 Mg Tabcr, 400 MG PO QPM, (Reported) Tiotropium [place] (Spiriva) 18 Mcg Cap, 1 PUFF INH DAILY, (Reported) Warfarin Sodium (Warfarin Sodium) 3 Mg Tablet, 6 MG PO QHS, (Reported) TAKES WITH 1MG WARFARIN AT BEDTIME TO EQUAL 7MG Warfarin Sodium (Warfarin Sodium) 1 Mg Tablet, 1 MG PO QHS, (Reported) Scheduled PRN Albuterol Sulf (Albuterol Sulfate) 2.5 Mg/3 Ml Nebu, 2.5 MG INH Q4H PRN for SHORTNESS OF BREATH, (Reported) Albuterol Sulfate (Ventolin Hfa) 108 Mcg/Act Aer, 2 PUFF INH Q4H PRN for S HORTNESS OF BREATH, (Reported) Oxycodone HCl/Acetaminophen (Oxycodone-Acetaminophen 5-325) 1 Each Tablet, 1 TAB PO TID PRN for PAIN, (Reported) Pantoprazole Sodium (Pantoprazole Sodium) 40 Mg Tablet.dr, 40 MG PO DAILY PRN for ACID REFLUX, (Reported) PATIENT STATED SHE ONLY USES THIS NEEDED ALISA JOHNSON MD April 05, 2019 14:11
[2019-04-05] MEDS ORDERED: ALBUTEROL SULFATE 2.5 MG/0.5 ML INH NEB SOLN INH ONE (14:15)
--- NOTE | 2019-04-05 15:05 | ROOR ---
Patient Name: Alona Carter Procedure Date: 04/05/2019 2:20 PM Date of : 1940 Age: 79 Room: [facility] Gender: Female Note Status: Finalized Procedure: Colonoscopy Indications: Hematochezia Providers: Víctor Bowling MD Referring MD: 2. Inpatient 2. Inpatient Requesting Provider: Medicines: Monitored Anesthesia Care Complications: No immediate complications. Procedure: Pre-Anesthesia Assessment: - Prior to the procedure, a History and Physical was performed, and patient medications and allergies were reviewed. The patient is competent. The risks and benefits of the procedure and the sedation options and risks were discussed with the patient. All questions were answered and informed consent was obtained. Patient identification and proposed procedure were verified by the physician, the nurse and the anesthesiologist in the procedure room. Mental Status Examination: alert and oriented. Airway Examination: normal oropharyngeal airway and neck mobility. Respiratory Examination: clear to auscultation. CV Examination: normal. Prophylactic Antibiotics: The patient does not require prophylactic antibiotics. Prior Anticoagulants: The patient has taken no previous anticoagulant or antiplatelet agents. ASA Grade Assessment: III - A patient with severe systemic disease. After reviewing the risks and benefits, the patient was deemed in satisfactory condition to undergo the procedure. The anesthesia plan was to use monitored anesthesia care (MAC). Immediately prior to administration of medications, the patient was re-assessed for adequacy to receive sedatives. The heart rate, respiratory rate, oxygen saturations, blood pressure, adequacy of pulmonary ventilation, and response to care were monitored throughout the procedure. The physical status of the patient was re-assessed after the procedure. The Colonoscope was introduced through the anus and advanced to the terminal ileum, with identification of the appendiceal orifice and IC valve. The colonoscopy was performed without difficulty. The patient tolerated the procedure well. The quality of the bowel preparation was fair. The terminal ileum, ileocecal valve, appendiceal orifice, and rectum were photographed. Scope insertion time was 5 minutes. Scope withdrawal time was 10 minutes. The total duration of the procedure was 15 minutes. Findings: The perianal and digital rectal examinations were normal. There is no endoscopic evidence of bleeding in the terminal ileum. A 15 mm polyp was found in the ascending colon. The polyp was semi-pedunculated. The polyp was removed with a hot snare. Resection and retrieval were complete. To close a defect after polypectomy, one hemostatic clip was successfully placed. There was no bleeding at the end of the procedure. Verification of patient identification for the specimen was done by the physician and nurse using the patient's name, date and medical record number. Estimated blood loss was minimal. Multiple small and large-mouthed diverticula were found from sigmoid to ascending colon. There was evidence of recent bleeding from the diverticular opening. For hemostasis, two hemostatic clips were successfully placed. There was no bleeding at the end of the procedure. There was a large lipoma, 25 mm in diameter, in the transverse colon. Non-bleeding external and internal hemorrhoids were found during retroflexion. The hemorrhoids were medium-sized. Impression: - Preparation of the colon was fair. - One 15 mm polyp in the ascending colon, removed with a hot snare. Resected and retrieved. Clip was placed. - Severe diverticulosis from sigmoid to ascending colon. There was evidence of recent bleeding from the diverticular opening. Clips were placed. - Large lipoma in the transverse colon. - Non-bleeding external and internal hemorrhoids. Recommendation: - Patient has a contact number available for emergencies. The signs and symptoms of potential delayed complications were discussed with the patient. Return to normal activities tomorrow. Written discharge instructions were provided to the patient. - High fiber diet. - Continue present medications. - Await pathology results. - Post-Procedure Resumption of Anticoagulants: Restart warfarin today at prior dose PO daily adjustment by primary physician to maintain INR in the range of 2.0 - 2.5. - Repeat colonoscopy in 6 months for surveillance based on pathology results. - Return to GI clinic in 6 months. ( Patient should call her Primary Knitter [employer] Dr. Weaver clinic to make this appointment). - Return to primary care physician. Víctor Bowlnig MD Víctor Bowling MD 04/05/2019 3:05:09 PM Electronically signed by Víctor Bowling MD Number of Addenda: 0 Note Initiated On: 04/05/2019 2:20 PM Estimated Blood Loss: Estimated blood loss was minimal.
[2019-04-05 18:23] LABS: HEMATOCRIT 26.1 % (36.0-47.0); HEMOGLOBIN 8.2 g/dl (12.0-15.5)
[2019-04-05] MEDS: THEOPHYLLINE (THEO-24) 100MG SR **CAPSULE PO SCH (20:19)
[2019-04-05] MEDS: amLODIPine 10 MG TAB PO SCH (20:19)
[2019-04-06 00:35] LABS: HEMATOCRIT 26.1 % (36.0-47.0); HEMOGLOBIN 8.2 g/dl (12.0-15.5)
[2019-04-06] MEDS: ALBUTEROL SULFATE 2.5 MG/0.5 ML INH NEB SOLN NEB SCH ×2 (01:54→07:51)
[2019-04-06] MEDS: PERCOCET 5MG/325MG TAB PO PRN ×2 (02:08→09:39)
[2019-04-06 04:00] VITALS: BP 155/69
[2019-04-06 05:06] LABS: BASO # 0.1 10^3/uL (0.0-0.2); BASO % 0.5 % (0.0-1.0); EOS # 0.4 10^3/uL (0.0-0.50); EOS % 3.7 % (0.0-3.0); HEMATOCRIT 25.9 % (36.0-47.0); HEMOGLOBIN 8.1 g/dl (12.0-15.5); LYMPH # 1.7 10^3/uL (1.5-4.5); LYMPH % 15.9 % (24.0-44.0); MEAN CORPUSCULAR HEMOGLOBIN 24.8 pg (27.0-33.0); MEAN CORPUSCULAR HGB CONC 31.3 g/dl (32.0-36.5); MEAN CORPUSCULAR VOLUME 79.4 fl (80.0-96.0); MONO # 0.9 10^3/uL (0.0-0.8); MONO % 8.7 % (0.0-5.0); NEUTROPHILS # 7.4 10^3/uL (1.8-7.7); NEUTROPHILS % 70.7 % (36.0-66.0); PLATELET COUNT, AUTOMATED 277 10^3/uL (150-450); RED BLOOD COUNT 3.26 10^6/uL (4.00-5.40); WHITE BLOOD COUNT 10.4 10^3/uL (4.0-10.0)
[2019-04-06 05:22] LABS: BLOOD UREA NITROGEN 8 MG/DL (7-18); CALCIUM LEVEL 8.2 MG/DL (8.8-10.2); CARBON DIOXIDE LEVEL 30 MEQ/L (21-32); CHLORIDE LEVEL 107 MEQ/L (98-107); CREATININE FOR GFR 0.59 MG/DL (0.55-1.30); GLOMERULAR FILTRATION RATE > 60.0 (>39); GLUCOSE, FASTING 107 MG/DL (70-100); POTASSIUM SERUM 3.7 MEQ/L (3.5-5.1); SODIUM LEVEL 142 MEQ/L (136-145)
[2019-04-06 06:00] VITALS: O2SAT 98
[2019-04-06] MEDS: LEVOTHYROXINE 75MCG TABLET (0.075MG) PO SCH (06:00)
[2019-04-06 07:00] VITALS: O2SAT 99
[2019-04-06] MEDS: HumaLOG INSULIN (NovoLOG) PER UNIT SC SCH (07:30)
[2019-04-06 07:42] LABS: INR 1.6; PROTHROMBIN TIME 19.3 SECONDS (12.1-14.4)
[2019-04-06] MEDS: TIOTROPIUM INHALER/CAPSULE (SPIRIVA) INH SCH (07:51)
[2019-04-06] MEDS: ADVAIR HFA 230/21MCG INHALER INH SCH (07:51)
[2019-04-06 08:00] VITALS: BP 146/65
[2019-04-06 09:00] VITALS: O2SAT 97
[2019-04-06] MEDS ORDERED: ELIQ5TAB PO (10:03)
--- NOTE | 2019-04-06 10:19 | DS.PDOC ---
Discharge Summary General Date of Admission April 04, 2019 at 17:49 Date of Discharge 04/06/19 Discharge Summary PROCEDURES PERFORMED DURING STAY: COLONOSCOPY Preparation of the colon was fair. One 15 mm polyp in the ascending colon, removed with a hot snare. Resected and retrieved. Clip was placed. Severe diverticulosis from sigmoid to ascending colon. There was evidence of recent bleeding from the diverticular opening. Clips were placed. Large lipoma in the transverse colon. Non-bleeding external and internal hemorrhoids. DISCHARGE DIAGNOSES: Acute Lower Gastrointestinal bleeding Acute blood loss anemia Supra therapeutic INR --coumadin coagulopathy Diabetes COPD Chronic respiratory failure with hypoxia. Hypertension Hyperlipidemia Hypothyroid History of Pulmonary Embolism in 2018 Hiatal hernia. COMPLICATIONS/CHIEF COMPLAINT: Gib (Gastrolintestinal Bleeding). HISTORY OF PRESENT ILLNESS: See History and physical HOSPITAL COURSE: 79 year old female with PMH of COPD with chronic respiratory failure with hypoxia, history of pulmonary embolism, Hypertension, Diabetes mellitus, Hypothyroidism, Chronic back and shoulder pain, Dyslipidemia , diverticulosis, hiatal hernia, presented to the ED for bleeding per rectum which started this morning. The bleeding is painless and bright red in color. She never had this kind of problem before. In the ED she continued to have bright red bleeding per rectum. Her lab work was significant for an INR of 3.4 , her HH was 10.3 which is close to her baseline. Patient is being admitted to the hospitalist service for acute GIB. In the ED patient was given 1 unit of FFP to reverse the INR. She also complained of increased sob today . She says she did have a cold about a month ago and got a course of azithromycin but with the change of weather her COPD has been acting up. But today the bleeding has been making her very anxious and afraid that has worsened her breathing She was admitted for GIB. Patient received FFP and PRBCs. Underwent colonoscopy on 04/05/19 and noted to have signs of recent diverticular bleeding . Those sites were clipped. Also a polyp was removed. Acute lower GIB due to diverticular bleeding on the back ground of being on coumadin. CT abdomen no acute pathology S/p colonoscopy on 04/05/19. clips were placed at the site of the bleeding. will restart oral anticoagulation Will switch to Eliquis from coumadin. Acute blood loss anemia from persistent GIB received 2 units of PRBC. HH now stable COPD with chronic hypoxic respiratory failure CXR no acute infiltrates, shows features of advanced COPD. continue advair, spiriva, duonebs, theophylline. oxygen Hypertension will continue amlodipine and losartan History of pulmonary hypertension in 2017 will switch from coumadin to eliquis. Diabetes continue metformin and glipizide Hypothyroid continue synthroid Hyperlipidemia continue statin and ezetimibe Hiatal hernia will continue omeprazole. DISCHARGE MEDICATIONS: Please see below. ALLERGIES: Please see below. PHYSICAL EXAMINATION ON DISCHARGE: VITAL SIGNS: Please see below. General Exam: Positive: Alert, Cooperative, No Acute Distress Eye Exam: Positive: Conjunctiva & lids normal, EOMI; Negative: Sclera icteric ENT Exam: Positive: Atraumatic, Mucous membr. moist/pink, Pharynx Normal Neck Exam: Positive: Supple; Negative: JVD, thyromegaly Chest Exam: Positive: Rales, Rhonchi, Wheezing, Diminished Heart Exam: Positive: Tachycardic, Regular Rhythm, Normal S1, Normal S2; Negative: Gallops, Murmurs, Rubs Telemetry: Positive: Sinus, Tachycardia Abdomen Exam: Positive: BS Hyperactive, Soft, Tenderness (left illiac fossa and left lumber region) Extremity Exam: Positive: Normal pulses; Negative: Clubbing, Cyanosis, Edema Skin Exam: Positive: Nl turgor and temperature; Negative: Breakdown, Lesion Neuro Exam: Positive: Normal Speech, Strength at 5/5 X4 ext, Normal Tone Psych Exam: Positive: Memory Intact, Oriented x 3 LABORATORY DATA: Please see below. ACTIVITY: [As tolerated]. DIET: Consistent Carb with high fiber DISCHARGE PLAN: Home DISCHARGE INSTRUCTIONS: Follow up PMD in [address] Bowling in 1 to 2 weeks for colonoscopy results. DISCHARGE CONDITION: [Stable]. TIME SPENT ON DISCHARGE: Greater than 30 minutes. Vital Signs/I&Os Vital Signs Date Time Temp Pulse Resp B/P (MAP) Pulse Ox O2 Delivery O2 Flow Rate FiO2 04/06/19 09:39 16 2.0 04/06/19 09:00 97 Nasal Cannula 04/06/19 08:00 98.9 74 146/65 (92) I&O- Last 24 Hours up to 6 AM 04/06/19 06:00 Intake Total 1020 ml Output Total 1775 ml Balance -755 ml Laboratory Data Labs 24H Laboratory Tests 2 04/05/19 12:23: Bedside Glucose (Misc Panel) 115H 04/05/19 16:58: Bedside Glucose (Misc Panel) 108 04/05/19 20:23: Bedside Glucose (Misc Panel) 272H 04/06/19 04:22: Immature Granulocyte % (Auto) 0.5, White Blood Count 10.4H, Red Blood Count 3.26L, Hemoglobin 8.1L, Hematocrit 25.9L, Mean Corpuscular Volume 79.4L, Mean Corpuscular Hemoglobin 24.8L, Mean Corpuscular Hemoglobin Concent 31.3L, Red Cell Distribution Width 17.0H, Platelet Count 277, Neutrophils (%) (Auto) 70.7H, Lymphocytes (%) (Auto) 15.9L, Monocytes (%) (Auto) 8.7H, Eosinophils (%) (Auto) 3.7H, Basophils (%) (Auto) 0.5, Neutrophils # (Auto) 7.4, Lymphocytes # (Auto) 1.7, Monocytes # (Auto) 0.9H, Eosinophils # (Auto) 0.4, Basophils # (Auto) 0.1, Nucleated Red Blood Cells % (auto) 0.0, Anion Gap 5L, Glomerular Filtration Rate > 60.0, Blood Urea Nitrogen 8, Creatinine 0.59, Sodium Level 142, Potassium Level 3.7, Chloride Level 107, Carbon Dioxide Level 30, Calcium Level 8.2L 04/06/19 07:18: Prothrombin Time 19.3H, Prothromb Time International Ratio 1.60 CBC/BMP Laboratory Tests 04/05/19 11:45 04/05/19 17:59 04/05/19 23:49 04/06/19 04:22 Red Blood Count 3.26 L, Mean Corpuscular Volume 79.4 L, Mean Corpuscular Hemoglobin 24.8 L, Mean Corpuscular Hemoglobin Concent 31.3 L, Red Cell Distribution Width 17.0 H, Neutrophils (%) (Auto) 70.7 H, Lymphocytes (%) (Auto) 15.9 L, Monocytes (%) (Auto) 8.7 H, Eosinophils (%) (Auto) 3.7 H, Basophils (%) (Auto) 0.5, Neutrophils # (Auto) 7.4, Lymphocytes # (Auto) 1.7, Monocytes # (Auto) 0.9 H, Eosinophils # (Auto) 0.4, Basophils # (Auto) 0.1, Calcium Level 8.2 L FSBS Laboratory Tests Test 04/05/19 12:23 04/05/19 16:58 04/05/19 20:23 Range/Units Bedside Glucose (Misc Panel) 115 108 272 83-110 MG/DL Discharge Medications Scheduled Amlodipine Besylate (Norvasc) 10 Mg Tablet, 10 MG PO QHS, (Reported) Apixaban (Eliquis) 5 Mg Tablet, 5 MG PO ASDIRECTED 10 MG (2 TABS) TWICE PER DAY FOR 7 DAYS THEN 5 MG (1 TAB) TWICE PER DAY Cholecalciferol (Vitamin D3) (Vitamin D3) 1,000 Unit Tab, 1,000 UNITS PO DAILY, (Reported) Ezetimibe (Zetia) 10 Mg Tab, 10 MG PO QHS, (Reported) Glipizide (Glipizide Xl) 5 Mg Tab, 5 MG PO DAILY, (Reported) Levothyroxine Sodium (Levothyroxine Sodium) 75 Mcg Tab, 75 MCG PO DAILY, (Reported) Losartan Potassium (Losartan Potassium) 100 Mg Tab, 100 MG PO QHS, (Reported) Metformin HCl (Metformin HCl) 500 Mg Tab, 500 MG PO TID, (Reported) PATIENT STATES SHE IS OFF OF THIS MED FOR THE NEXT 48 HOURS Salmeterol/Fluticasone (Advair 500-50 Diskus) 28 Puff/Inhaler Aerp, 1 PUFF INH BID, (Reported) Simvastatin (Zocor) 80 Mg Tablet, 80 MG PO QHS, (Reported) Theophylline Anhydrous (Theophylline) 400 Mg Tabcr, 400 MG PO QPM, (Reported) Tiotropium [place] (Spiriva) 18 Mcg Cap, 1 PUFF INH DAILY, (Reported) Warfarin Sodium (Warfarin Sodium) 3 Mg Tablet, 6 MG PO QHS, (Reported) TAKES WITH 1MG WARFARIN AT BEDTIME TO EQUAL 7MG Warfarin Sodium (Warfarin Sodium) 1 Mg Tablet, 1 MG PO QHS, (Reported) Scheduled PRN Albuterol Sulf (Albuterol Sulfate) 2.5 Mg/3 Ml Nebu, 2.5 MG INH Q4H PRN for SHORTNESS OF BREATH, (Reported) Albuterol Sulfate (Ventolin Hfa) 108 Mcg/Act Aer, 2 PUFF INH Q4H PRN for SHORTNESS OF BREATH, (Reported) Oxycodone HCl/Acetaminophen (Oxycodone-Acetaminophen 5-325) 1 Each Tablet, 1 TAB PO TID PRN for PAIN, (Reported) Pantoprazole Sodium (Pantoprazole Sodium) 40 Mg Tablet.dr, 40 MG PO DAILY PRN for ACID REFLUX, (Reported) PATIENT STATED SHE ONLY USES THIS NEEDED Allergies Coded Allergies: Cephalosporins (Verified Allergy, Unknown, RASH, 04/04/19) Sulfa (Sulfonamide Antibiotics) (Verified Allergy, Unknown, 04/04/19) carisoprodol (Verified Allergy, Unknown, 04/04/19) codeine (Verified Allergy, Unknown, 04/04/19) amoxicillin (Verified Adverse Reaction, Unknown, VOMIT, 04/04/19) clavulanic acid (Verified Adverse Reaction, Unknown, VOMIT, 04/04/19) CLAUDE TORRES MD April 06, 2019 10:19
[2019-04-06] MEDS ORDERED: WARFARIN SOD 3 MG TAB PO SCH (21:00)
[2019-04-06] MEDS ORDERED: WARFARIN SOD 1 MG TAB PO SCH (21:00)
== END 2019-04-06 11:10 | disposition home or self-care (01) | DRG 378 ==
LOC: M ED 14:15 → M ED INP 17:49 → M PCU 20:26
PROVIDERS: ADMIT Internal Medicine Nephrology; ATTEND Internal Medicine Nephrology
PROC: 0W3P8ZZ Control Bleeding in Gastrointestinal Tract, Via Natural or Artificial Opening Endoscopic (ICD-10-PCS; 2019-04-05)
PROC: 0DBK8ZX Excision of Ascending Colon, Via Natural or Artificial Opening Endoscopic, Diagnostic (ICD-10-PCS; principal; 2019-04-05 13:50)
DX: K57.33 Diverticulitis of large intestine without perforation or abscess with bleeding (principal); J96.11 Chronic respiratory failure with hypoxia; D62 Acute posthemorrhagic anemia; D68.32 Hemorrhagic disorder due to extrinsic circulating anticoagulants; I10 Essential (primary) hypertension; J44.9 Chronic obstructive pulmonary disease, unspecified; E11.9 Type 2 diabetes mellitus without complications; K44.9 Diaphragmatic hernia without obstruction or gangrene; E03.9 Hypothyroidism, unspecified; E78.5 Hyperlipidemia, unspecified; Z86.711 Personal history of pulmonary embolism; D12.2 Benign neoplasm of ascending colon; K64.4 Residual hemorrhoidal skin tags; K64.8 Other hemorrhoids; D17.79 Benign lipomatous neoplasm of other sites; Z79.899 Other long term (current) drug therapy; Z88.2 Allergy status to sulfonamides; Z88.1 Allergy status to other antibiotic agents; Z88.8 Allergy status to other drugs, medicaments and biological substances; M54.5 Low back pain

== ENCOUNTER 2019-07-16 21:10 | Inpatient (IN) | payer MEDICARE, OTHER ==
[~2019-07-16] VITALS: Ht 157.5 cm; Wt 67.0 kg
[~2019-07-16 21:10] MED LIST changes: +ELIQ5TAB PO; +PANT40TA3 PO; +WARF4TAB52 PO; +ZETI10TA16 PO; -ZETI10TA30 PO; +ZOCO80TA PO
[2019-07-16] MEDS ORDERED: methylPREDNISolone INJ 125 MG/2 ML VIAL (J2930) IV ONE (22:15)
[2019-07-16 22:19] LABS: BASO # 0.1 10^3/uL (0.0-0.2); BASO % 0.8 % (0.0-1.0); EOS # 0.3 10^3/uL (0.0-0.50); HEMATOCRIT 37.4 % (36.0-47.0); HEMOGLOBIN 10.4 g/dl (12.0-15.5); LYMPH # 2.6 10^3/uL (1.5-4.5); LYMPH % 17.1 % (24.0-44.0); MEAN CORPUSCULAR HGB CONC 27.8 g/dl (32.0-36.5); MEAN CORPUSCULAR VOLUME 71.8 fl (80.0-96.0); MONO # 1.3 10^3/uL (0.0-0.8); MONO % 8.5 % (0.0-5.0); NEUTROPHILS # 10.9 10^3/uL (1.8-7.7); NEUTROPHILS % 71.1 % (36.0-66.0); PLATELET COUNT, AUTOMATED 444 10^3/uL (150-450); RED BLOOD COUNT 5.21 10^6/uL (4.00-5.40); WHITE BLOOD COUNT 15.4 10^3/uL (4.0-10.0)
[2019-07-16 22:20] LABS: VENOUS BASE EXCESS 1.8 (-2.0-2.0); VENOUS O2 SATURATION 78.5 % (60.0-80.0); VENOUS PARTIAL PRESSURE CO2 51.6 mmHg (38.0-50.0); VENOUS PARTIAL PRESSURE O2 45.1 mmHg (30.0-50.0); VENOUS PH 7.353 UNITS (7.330-7.430); VENOUS STANDARD HCO3 25.7 MEQ/L; VENOUS TOTAL CO2 29.6 MEQ/L (24.0-28.0)
[2019-07-16] MEDS: IPRATROPIUM 0.5MG/ALBUTEROL 2.5MG INH SOL UD 3ML (DUONEB)(J7620) NEB PRN ×3 (22:28→22:43)
[2019-07-16 22:46] LABS: ALBUMIN 3.4 GM/DL (3.2-5.2); ALT/SGPT 18 U/L (12-78); BILIRUBIN,DIRECT < 0.1 MG/DL (0.0-0.2); BILIRUBIN,TOTAL 0.3 MG/DL (0.2-1.0); BLOOD UREA NITROGEN 10 MG/DL (7-18); CARBON DIOXIDE LEVEL 31 MEQ/L (21-32); CHLORIDE LEVEL 102 MEQ/L (98-107); CREATININE FOR GFR 0.69 MG/DL (0.55-1.30); GLOMERULAR FILTRATION RATE > 60.0 (>39); GLUCOSE, FASTING 142 MG/DL (70-100); LIPASE 121 U/L (73-393); NT-PRO BNP 655 PG/ML (<450); POTASSIUM SERUM 3.8 MEQ/L (3.5-5.1); SODIUM LEVEL 140 MEQ/L (136-145); TOTAL PROTEIN 7.3 GM/DL (6.4-8.2)
[2019-07-16] MEDS ORDERED: ISOVUE-370 76% 100ML VIAL (Q9967) As Ordered ONE (23:02)
[2019-07-16] MEDS ORDERED: LOSARTAN 50 MG TAB PO ONE (23:15)
[2019-07-17] VITALS (7 sets, daily range): BP systolic 119–146; BP diastolic 56–66; O2SAT 92–97
--- NOTE | 2019-07-17 00:35 | REPVR ---
EXAM: CT Angiography Chest With Contrast EXAM DATE/TIME: 07/16/2019 11:13 PM CLINICAL HISTORY: 79 years old, female; Shortness of breath; abd/back pain, HX of pe, noncompliant with anticoagulation TECHNIQUE: Imaging protocol: Axial computed tomographic angiography images of the chest with intravenous contrast using CT angiography protocol. Coronal and sagittal reformatted images were created and reviewed. 3D rendering: MIP reconstructed images were created and reviewed. Radiation optimization: All CT scans at this facility use at least one of these dose optimization techniques: automated exposure control; mA and/or kV adjustment per patient size (includes targeted exams where dose is matched to clinical indication); or iterative reconstruction. Contrast material: ISOVUE 370;Contrast volume: 100 ml;Contrast route: IV; COMPARISON: CT ANGIO CHEST 07/06/2018 8:44 AM FINDINGS: Pulmonary arteries: No pulmonary embolism is identified. Aorta: There is no thoracic aortic aneurysm, pseudoaneurysm, penetrating atherosclerotic ulcer, or dissection. There are moderate atherosclerotic calcifications. Thyroid: The right lobe of the thyroid gland has been removed. The imaged portion of the left lobe of the thyroid gland is unremarkable. The thyroid gland was not fully imaged. Lungs: There are centrilobular emphysematous changes, most severe in the upper lobes, without significant change compared to the prior CT scan on 07/06/2018. The 1.6 cm pleural-based nodule in the posterior segment of the right lower lobe described in the prior CT scan on 07/06/2018 has resolved. There are several ill-defined opacities in the left upper lobe measuring up to 1.5 cm, which are similar in appearance compared to the prior CT scan on 07/06/2019 (images 27, 34, 30, and 41 of the axial series 402). There is a 4 mm solid pulmonary nodule in the right upper lobe (image 32 of the axial series 402), which is unchanged compared to the prior CT scan on 07/06/2018. There is a 7 mm solid pulmonary nodule containing 2 punctate peripheral calcifications in the right middle lobe, which is unchanged compared to the prior CT scan on 07/06/2018 (image 49 of the axial series 402). There is scarring of both upper lobes. The major airways are patent. Pleural space: Unremarkable. No pneumothorax. No pleural effusion. Heart: No cardiomegaly. There is hypertrophy of the wall of the left ventricle. No pericardial effusion. The ratio of the diameter of the right ventricle to the diameter of the left ventricle measures less than 1, which is within normal limits and there is no evidence for a right ventricular strain. There are coronary artery calcifications. Mediastinum: No mediastinal mass, hemorrhage, or pneumomediastinum. Adrenals: There is a 2.1 cm oval shaped right adrenal nodule that measures approximately 6 Hounsfield units and is unchanged compared to the prior CT scan on 07/06/2018 and compatible with a benign adrenal adenoma for which follow-up is not necessary. The left adrenal gland is normal. Lymph nodes: There is an 11 mm in short axis nonspecific enlarged precarinal lymph node, which is stable compared to the prior CT scan on 07/06/2018. No other abnormally enlarged nodes are noted in the chest. Bones/joints: There is a mild chronic anterior wedge compression fracture of T4, which is unchanged compared to the prior CT scan on 07/06/2019. No acute fractures noted. Incidental note is made of a small bone island in the T3 vertebral body that is unchanged compared to the prior CT scan on 07/06/2018. There is no suspicious osteolytic or osteoblastic lesion. Soft tissues: Unremarkable. IMPRESSION: 1. No acute findings in the chest. No pulmonary embolism. 2. Multiple solid pulmonary nodules ranging in size from 4 mm to 7 mm as detailed above, which are stable compared to the prior CT scan on 07/06/2018. See management guidelines below. 3. 11 mm in short axis nonspecific enlarged precarinal lymph node, which is stable compared to the prior CT scan on 07/06/2018. 4. Centrilobular emphysematous changes, which are similar in appearance compared to the prior CT scan on 07/06/2018. 5. Mild chronic anterior wedge compression fracture of T4, which is unchanged compared to the prior CT scan on 07/06/2019. [employer]CHNER SOC[employer]ET[employer] 2017 GUIDELINES FOR MANAGEMENT OF INCIDENTAL PULMONARY NODULES: Multiple solid nodules 6-8 mm: In a low risk patient, CT at 3-6 months, then consider CT at 18-24 months. Use most suspicious nodule as guide to management. Follow-up intervals may vary according to size and risk. In a high risk patient, CT at 3-6 months, then at CT at 18-24 months. High Risk Patients as defined in the 2017 Fleischner Society Guidelines: ?History of heavy smoking ?Exposure to asbestos, radium, or uranium ?Family history of lung cancer ?Emphysema and pulmonary fibrosis (IPF in particular) ?Older age ?Sex (females at greater risk than men) ?Race (Blacks and at higher risk) ?Marginal spiculation / suspicious morphology ?Upper lobe location (also apex) ?Multiple nodules (2-5 nodules highest risk) ?Exceptions, such as technically suboptimal scanning Rani H, Rao DP, Kathya BROOKS, et al. Guidelines for Management of Incidental Pulmonary Nodules Detected on CT images: From the Fleischner Society 2017. Radiology, May 2017;284(1):228-243. http://pubs.rsna.org/doi/pdf/[email or web address] Electronically signed by: Pérez Farah On 07/17/2019 00:35:19 AM
--- NOTE | 2019-07-17 00:56 | REPVR ---
EXAM: CT Abdomen and Pelvis With Contrast EXAM DATE/TIME: 07/16/2019 11:13 PM CLINICAL HISTORY: 79 years old, female; Abdominal pain; Generalized; Additional info: SOB, abd/back pain, HX of pe, noncompliant with anticoagulation. TECHNIQUE: Imaging protocol: Axial computed tomography images of the abdomen and pelvis with intravenous contrast. Coronal and sagittal reformatted images were created and reviewed. Radiation optimization: All CT scans at this facility use at least one of these dose optimization techniques: automated exposure control; mA and/or kV adjustment per patient size (includes targeted exams where dose is matched to clinical indication); or iterative reconstruction. Contrast material: ISOVUE 370;Contrast volume: 100 ml;Contrast route: IV; COMPARISON: CT ANGIO CHEST 07/06/2018 8:44:17 AM TX - CT ABD PELVIS W/O CONTRAST 03/15/2015 12:54:35 PM FINDINGS: Lungs: See CTA chest report on 07/16/2019. Heart: See CTA chest report on 07/16/2019. Liver: Unremarkable. No liver lesion is seen. The contour of the liver is smooth. No hepatomegaly is noted. Gallbladder and bile ducts: No calcified gallstones are seen. No gallbladder wall thickening, pericholecystic fluid, or pericholecystic inflammatory changes are identified. No dilation of the intrahepatic or extrahepatic bile ducts is noted. Pancreas: Normal. No ductal dilation. Spleen: The spleen is heterogeneous in appearance, which is likely secondary to the arterial timing of the contrast bolus. No splenomegaly. Adrenals: There is a 2.1 cm oval shaped right adrenal nodule that is unchanged compared to the prior CT scans on 07/06/2018 and 03/15/2015 and compatible with a benign adrenal adenoma for which follow-up is not necessary. The left adrenal gland is normal. Kidneys and ureters: There is a 3 mm cyst in the superior pole of the left kidney for which follow-up is not necessary. The right kidney is unremarkable. No calculi are seen in the kidneys or ureters. There is no hydronephrosis or hydroureter. There are no wedge-shaped areas of low attenuation in the kidneys to suggest pyelonephritis. There is no renal abscess or perinephric fluid collection. Stomach and bowel: There is an 18 mm linear metallic density object in the cecum and another 18 mm linear metallic density object in the proximal descending colon, which should be correlated with the patient's ingestion history (images 53 and 87 of the axial series 501). There is duodenal and colonic diverticulosis without evidence for diverticulitis. There is no evidence for a bowel obstruction, colitis, pneumatosis intestinalis, intussusception, volvulus, or perforated viscus. Appendix: The retrocecal appendix is normal. No evidence for appendicitis. Intraperitoneal space: Unremarkable. No free air. No fluid collection. Vasculature: There are moderate atherosclerotic calcifications. The abdominal aorta is patent, normal in caliber, and there is no dissection. There is mild stenosis of the origin of the single right main renal artery. The single left main renal artery is patent. There is mild to moderate stenosis of the origin of the superior mesenteric artery. The celiac artery, inferior mesenteric artery, and iliac arteries are patent. There is mild stenosis of both common femoral arteries. The portal veins, splenic vein, superior mesenteric vein, inferior mesenteric vein, and renal veins are patent. Lymph nodes: Normal. No enlarged lymph nodes. Bladder: Unremarkable. No calculi or masses are noted in the bladder. Reproductive: The uterus is anterverted and unremarkable. The ovaries are unremarkable. Incidental note is made of a punctate calcification in each ovary. Bones/joints: The imaged bony structures are intact. There is no suspicious osteolytic or osteoblastic lesion. Incidental note is made of small bone islands in the left acetabulum and left femoral head. There is a lumbosacral transitional vertebra that will be designated as L5 above the last well-defined intervertebral disc, and there is broadening of the both transverse proceses of the lumbosacral transitional vertebra, which are fused to both sides of the sacrum (Castellvi type IIIb lumbosacral transitional vertebra) and this stabilizes the level below the lumbosacral transitional vertebra and leads to the propensity for increased mobility and degenerative disc disease at the level above the lumbosacral transitional vertebra (Bertolotti's syndrome). At the L4-L5 level, there is mild loss of disc dorsally, vacuum phenomenon in the intervertebral disc, a broad-based posterior protrusion that is eccentric to the right and causes mild stenosis of the right lateral recess, and mild osteoarthritis of the facet joints. Soft tissues: There is a large fat containing periumbilical hernia located just above the umbilicus that is similar in appearance compared to the prior CT scan on 03/15/2015. The hernia sac measures 7.9 cm in transverse dimension and the defect in the anterior abdominal wall measures 1.5 cm in transverse dimension. IMPRESSION: 1. 18 mm linear metallic density object in the cecum and another 18 mm linear metallic density object in the proximal descending colon, which should be correlated with the patient's ingestion history. No evidence for a perforated viscus or bowel obstruction. 2. Large fat containing periumbilical hernia located just above the umbilicus that is similar in appearance compared to the prior CT scan on 03/15/2015. 3. Lumbosacral transitional vertebra that was designated as L5 above the last well-defined intervertebral disc, and there is broadening of the both transverse proceses of the lumbosacral transitional vertebra, which are fused to both sides of the sacrum (Castellvi type IIIb lumbosacral transitional vertebra) and this stabilizes the level below the lumbosacral transitional vertebra and leads to the propensity for increased mobility and degenerative disc disease at the level above the lumbosacral transitional vertebra (Bertolotti's syndrome). 4. L4-L5: Mild loss of disc dorsally, vacuum phenomenon in the intervertebral disc, a broad-based posterior protrusion that is eccentric to the right and causes mild stenosis of the right lateral recess, and mild osteoarthritis of the facet joints. COMMENT: Consistent with the [place] [employer]'s Incidental Findings Committee Report (J Am Elsi Radiol 2010): Unless the patient's specific circumstances suggest otherwise, any liver lesion 0.5 cm or less, any cystic kidney lesion less than 1.0 cm, and/or any adrenal lesion 1.0 cm or less not otherwise characterized in this report as possessing suspicious or indeterminate imaging features is/are highly likely to be benign and do not require follow-up imaging or biopsy. Electronically signed by: Pérez Farah On 07/17/2019 00:56:45 AM
--- NOTE | 2019-07-17 01:29 | HPEPDOC ---
[facility] Medical History & Physical Date of Admission Jul 17, 2019 Date of Service: Jul 17, 2019 Primary Care Physician: A Other Provider no documented PCP Attending Physician: GALLO HAAS MD History and Physical Time of service 1:35 AM The history was obtained from the patient and her granddaughter. CHIEF COMPLAINT: stomach pain HISTORY OF PRESENT ILLNESS: Ms. Cai is a 79-year-old female who presents with complaints of left lower, 8 out of 10 in severity, abdominal pain that radiates to the mid abdomen and lower back. The pain began today. She is also complaining of shortness of breath for which begun 5-14 days ago that which she attributes to the humid weather. She reported having a fever, chills, poor appetite. She has a chronic cough productive of clear sputum but is producing more sputum than usual; she still smokes. She denies having unilateral leg swelling. She has chronic left lower leg swelling and knee pain. 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 HOME MEDICATIONS: Please see below. PHYSICAL EXAMINATION: VITAL SIGNS: Please see below. GENERAL APPEARANCE: Well-nourished, well-developed, not in apparent distress, does not appear toxic or septic HEENT: Normocephalic, atraumatic, mucous members dry, nasal cannula in place, lips acyanotic CARDIOVASCULAR: Regular rate and rhythm, no murmurs, rubs or gallops, radial pulses are intact, there is no acute or extremity swelling LUNGS: She is using her accessory muscles, unable to complete a full sentence without having to stop to take a breath, there is expiratory wheezing bilaterally ABDOMEN: Soft and nontender on palpation MUSCULOSKELETAL: There is no calf tenderness EXTREMITIES: Range of motion is intact in all 4 extremities NEUROLOGICAL:. Cranial nerves 2-12 are grossly intact, except for auditory. S peech is not dysarthric PSYCHIATRIC: Alert and oriented person, able to understand and follow commands LABORATORY DATA: See below. IMAGING: CT of the chest "IMPRESSION: 1. No acute findings in the chest. No pulmonary embolism. 2. Multiple solid pulmonary nodules ranging in size from 4 mm to 7 mm as detailed above, which are stable compared to the prior CT scan on 07/06/2018. .... 3. 11 mm in short axis nonspecific enlarged precarinal lymph node, which is stable compared to the prior CT scan on 07/06/2018. 4. Centrilobular emphysematous changes, which are similar in appearance compared to the prior CT scan on 07/06/2018. 5. Mild chronic anterior wedge compression fracture of T4, which is unchanged compared to the prior CT scan on 07/06/2019 CT of the abdomen "IMPRESSION: 1. 18 mm linear metallic density object in the cecum and another 18 mm linear metallic density object in the proximal descending colon, which should be correlated with the patient's ingestion history. No evidence for a perforated viscus or bowel obstruction. 2. Large fat containing periumbilical hernia located just above the umbilicus that is similar in appearance compared to the prior CT scan on 03/15/2015. 3. Lumbosacral transitional vertebra that was designated as L5 above the last well-defined intervertebral disc, and there is broadening of the both transverse proceses of the lumbosacral transitional vertebra, which are fused to both sides of the sacrum (Castellvi type IIIb lumbosacral transitional vertebra) and this stabilizes the level below the lumbosacral transitional vertebra and leads to the propensity for increased mobility and degenerative disc disease at the level above the lumbosacral transitional vertebra (Bertolotti's syndrome). 4. L4-L5: Mild loss of disc dorsally, vacuum phenomenon in the intervertebral disc, a broad-based posterior protrusion that is eccentric to the right and caus es mild stenosis of the right lateral recess, and mild osteoarthritis of the facet joints." MICROBIOLOGY: Please see below. ASSESSMENT: Ms. Cai is a 79-year-old female with a PMH of of COPD, Chronic HTN, recently diagnosed PE (off of apixaban bc of allergy), NIDDM, Hypothyroidism, Chronic back and shoulder pain, Dyslipidemia and Hearing loss who will be admitted primarily for management of acute COPD. PLAN: 1. SIRS. Cause to be determined SIRS criterial include leukocytosis and a heart rate of 104. Lactic acid 2.3 She received levofloxacin in the ED Plan: admit to PCU / Sepsis protocol w repeat lactic acid /continue the levofloxacin antibiotic day #1/will not order IV fluids because her blood pressure is high/f/u blood cx, UA w Cx and sputum Cx 2. Acute hypercarbic respiratory failure secondary to acute COPD Likely due to smoking versus bronchitis BNP elevation is likely 2/2 acute COPD, Echo in Nov showed normal EF and only G1DD w PASP of 28 and clincally she is not retaining fluid CTA was negative for an acute process. ABG was remarkable for PCO2 51 Received Solu-Medrol in the ED Plan: f/u ABG in the morning / Dunebs Q6H, Albuterol Q4HP, Prednisone + PPI / Levofloxacin, Tessalon Pearls / refer to [facility] for repeat PFTs and Pulmonary Rehab when ready for d/c 3. Left-sided abdominal and back pain. Possibly due to metallic objects in the colon see on CT versus other cause to be determined CT of the abdomen identified to linear metallic densities in the cecum and proximal descending colon. Plan: f/u UA nothing by mouth/ f/u KUB in the morning to see if objects have passed if not and the patient continues to have abdominal pain the day time team may consult General Surgery 4. History of pulmonary embolism patient quit taking apixaban bc of allergy "itchy skin" CTA didn't show acute PE Plan: Will not start anticoagulation pending possible surgery evaluation 5 NIDDM A1c 6.6 in November Plan: f/u accuchecks & A1C / hypoglycemia protocol / sliding scale insulin / hold oral anti-glycemics 6. Uncontrolled Hypertension Elevation may be due to abdominal pain Plan: c/w home meds 7. Hypothyroidism Plan: c/w home meds 8. Tobacco abuse. Plan: Smoking cessation education/the patient denied a nicotine patch DVT prophylaxis with SCDs pending surgery eval Disposition pending clinical course Vital Signs Vital Signs Date Time Temp Pulse Resp B/P (MAP) Pulse Ox O2 Delivery O2 Flow Rate FiO2 07/16/19 23:35 203/85 (124) 07/16/19 22:54 97 20 94 Nasal Cannula 2.0 07/16/19 21:58 98 07/16/19 21:32 97.6 Laboratory Data Labs 24H Laboratory Tests 2 07/16/19 22:05: Immature Granulocyte % (Auto) 0.5, White Blood Count 15.4H, Red Blood Count 5.21, Hemoglobin 10.4L, Hematocrit 37.4, Mean Corpuscular Volume 71.8L, Mean Co rpuscular Hemoglobin 20.0L, Mean Corpuscular Hemoglobin Concent 27.8L, Red Cell Distribution Width 16.9H, Platelet Count 444, Neutrophils (%) (Auto) 71.1H, Lymphocytes (%) (Auto) 17.1L, Monocytes (%) (Auto) 8.5H, Eosinophils (%) (Auto) 2.0, Basophils (%) (Auto) 0.8, Neutrophils # (Auto) 10.9H, Lymphocytes # (Auto) 2.6, Monocytes # (Auto) 1.3H, Eosinophils # (Auto) 0.3, Basophils # (Auto) 0.1, Nucleated Red Blood Cells % (auto) 0.0, Blood Gas Bicarbonate Standard 25.7, Venous Blood pH 7.353, Venous Blood Partial Pressure CO2 51.6H, Venous Blood Partial Pressure O2 45.1, Venous Blood Total Carbon Dioxide 29.6H, Venous Blood HCO3 28.0H, Venous Blood Oxygen Saturation 78.5, Venous Blood Base Excess 1.8, Anion Gap 7L, Glomerular Filtration Rate > 60.0, Lactic Acid Level 2.3*H, Calcium Level 9.0, Aspartate Amino Transf (AST/SGOT) 16, Alanine Aminotransferase (ALT/SGPT) 18, Alkaline Phosphatase 87, Total Bilirubin 0.3, Direct Bilirubin < 0.1, JQ-Erl-Q-Type Natriuretic Peptide 655H, Total Protein 7.3, Albumin 3.4, Albumin/Globulin Ratio 0.87L, Lipase 121 CBC/BMP Laboratory Tests 07/16/19 22:05 Red Blood Count 5.21, Mean Corpuscular Volume 71.8 L, Mean Corpuscular Hemo globin 20.0 L, Mean Corpuscular Hemoglobin Concent 27.8 L, Red Cell Distribution Width 16.9 H, Neutrophils (%) (Auto) 71.1 H, Lymphocytes (%) (Auto) 17.1 L, Monocytes (%) (Auto) 8.5 H, Eosinophils (%) (Auto) 2.0, Basophils (%) (Auto) 0.8, Neutrophils # (Auto) 10.9 H, Lymphocytes # (Auto) 2.6, Monocytes # (Auto) 1.3 H, Eosinophils # (Auto) 0.3, Basophils # (Auto) 0.1 Microbiology Microbiology 07/16/19 Blood Culture, Received Pending 07/16/19 Blood Culture, Received Pending Home Medications Scheduled Cholecalciferol (Vitamin D3) (Vitamin D3) 1,000 Unit Tab, 1,000 UNITS PO DAILY Ezetimibe (Zetia) 10 Mg Tab, 10 MG PO QHS Glipizide (Glipizide Xl) 5 Mg Tab, 5 MG PO DAILY Levothyroxine Sodium (Levothyroxine Sodium) 75 Mcg Tab, 75 MCG PO DAILY Losartan Potassium (Losartan Potassium) 100 Mg Tab, 100 MG PO QHS Metformin HCl (Metformin HCl) 500 Mg Tab, 500 MG PO BID PATIENT INSTRUCTED TO HOLD MED UNTIL 07/18/19 DUE TO IV CONTRAST Salmeterol/Fluticasone (Advair 500-50 Diskus) 28 Puff/Inhaler Aerp, 1 PUFF INH BID Simvastatin (Zocor) 80 Mg Tablet, 80 MG PO QHS Theophylline Anhydrous (Theophylline) 400 Mg Tabcr, 400 MG PO QPM Tiotropium Brooks (Spiriva) 18 Mcg Cap, 1 PUFF INH DAILY Scheduled PRN Albuterol Sulfate (Ventolin Hfa) 108 Mcg/Act Aer, 2 PUFF INH Q4H PRN for SHORTNESS OF BREATH Oxycodone HCl/Acetaminophen (Oxycodone-Acetaminophen 5-325) 1 Each Tablet, 1 TAB PO TID PRN for PAIN Allergies Coded Allergies: Cephalosporins (Verified Allergy, Mild, RASH, 07/17/19) apixaban (Verified Allergy, Mild, RASH, 07/17/19) carisoprodol (Verified Allergy, Mild, RASH, 07/17/19) codeine (Verified Allergy, Mild, RASH, 07/17/19) Sulfa (Sulfonamide Antibiotics) (Verified Allergy, Unknown, UNKNOWN RXN A CHILD, 07/17/19) amoxicillin (Verified Allergy, Unknown, VOMITING, RASH, 07/17/19) AMOXICILLIN, PENICILLIN, AMPICILLIN OK PER PT clavulanic acid (Verified Allergy, Unknown, VOMITING, RASH, 07/17/19) AMOXICILLIN, PENICILLIN, AMPICILLIN OK PER PT A-FIB/CHADSVASC A-FIB History Current/History of A-Fib/PAF?: No Current PO Anticoag Therapy: No GALLO HAAS MD Jul 17, 2019 01:29
[2019-07-17] MEDS ORDERED: LevoFLOXacin IV 750 MG in APPROPRIATE DILUENT 1 EA IV ONE (01:30)
[2019-07-17] MEDS ORDERED: amLODIPine 5 MG TAB PO ONE (01:30)
[2019-07-17] MEDS ORDERED: PERCOCET 5MG/325MG TAB PO ONE (01:30)
[2019-07-17] MEDS ORDERED: DEXTROSE 50% 50 ML SYRINGE IV PRN (02:30)
[2019-07-17] MEDS ORDERED: BENZONATATE 100 MG CAP PO PRN (02:30)
[2019-07-17] MEDS ORDERED: ALBUTEROL SULFATE 2.5 MG/0.5 ML INH NEB SOLN NEB PRN (02:30)
[2019-07-17 06:20] LABS: HEMATOCRIT 35.6 % (36.0-47.0); HEMOGLOBIN 10.2 g/dl (12.0-15.5); MEAN CORPUSCULAR HEMOGLOBIN 20.6 pg (27.0-33.0); MEAN CORPUSCULAR HGB CONC 28.7 g/dl (32.0-36.5); MEAN CORPUSCULAR VOLUME 72.1 fl (80.0-96.0); PLATELET COUNT, AUTOMATED 412 10^3/uL (150-450); RED BLOOD COUNT 4.94 10^6/uL (4.00-5.40)
[2019-07-17 06:43] LABS: HEMOGLOBIN A1c 8.1 %
[2019-07-17 07:01] LABS: ALBUMIN 3.2 GM/DL (3.2-5.2); BILIRUBIN,TOTAL 0.3 MG/DL (0.2-1.0); CALCIUM LEVEL 8.6 MG/DL (8.8-10.2); CREATININE FOR GFR 0.98 MG/DL (0.55-1.30); GLOMERULAR FILTRATION RATE 58.6 (>39); MAGNESIUM LEVEL 1.8 MG/DL (1.8-2.4); POTASSIUM SERUM 4.3 MEQ/L (3.5-5.1); TOTAL PROTEIN 6.8 GM/DL (6.4-8.2)
[2019-07-17 07:07] LABS: VENOUS BASE EXCESS -0.5 (-2.0-2.0); VENOUS HCO3 25.5 MEQ/L (23.0-27.0); VENOUS O2 SATURATION 98.2 % (60.0-80.0); VENOUS PARTIAL PRESSURE CO2 47.5 mmHg (38.0-50.0); VENOUS PARTIAL PRESSURE O2 108.7 mmHg (30.0-50.0); VENOUS PH 7.347 UNITS (7.330-7.430); VENOUS STANDARD HCO3 24.1 MEQ/L; VENOUS TOTAL CO2 26.9 MEQ/L (24.0-28.0)
--- NOTE | 2019-07-17 07:12 | REP ---
Portable chest, 10:15 p.m., single AP view with the patient upright: Comparisons are the portable chest dated 04/05/2019 and the PA and lateral chest dated 12/08/2018. There is focal increased density inferomedially in the, nonspecific, skin fold artifact versus infiltrate. Lung cervantes otherwise clear. Cardiac size is normal. The george, mediastinum, skeletal structures are. Impression: Focal increased density inferomedially in the right lung, artifact versus infiltrate. Electronically Signed by Nestor Vega MD 07/17/2019 07:03 A
[2019-07-17] MEDS: LEVOTHYROXINE 75MCG TABLET (0.075MG) PO SCH (07:25)
[2019-07-17] MEDS: methylPREDNISolone INJ 125 MG/2 ML VIAL (J2930) IV SCH ×3 (07:25→21:47)
[2019-07-17] MEDS: HumaLOG INSULIN (NovoLOG) PER UNIT SC SCH ×3 (07:30→18:22)
--- NOTE | 2019-07-17 08:06 | REP ---
Supine abdomen two AP views: Comparison is the abdomen and pelvis CT dated 07/16/2019 at 11:16 p.m.: There is a linear metallic density in the right lower quadrant, similar to the density identified in the cecum on the comparison CT. There is a linear metallic density in the descending colon, similar to the density identified on the comparison CT. There is no bowel distension or obstruction. Supine position precludes evaluation for free intraperitoneal air. The soft tissue and skeletal structures are otherwise unremarkable except for L5 transitional vertebra. The bladder is opacified, likely from the IV contrast utilized for the comparison CT. Impression: Metallic densities in the cecum and descending colon as described. Electronically Signed by Nestor Vega MD 07/17/2019 07:57 A
[2019-07-17] MEDS: TIOTROPIUM INHALER/CAPSULE (SPIRIVA) INH SCH (08:29)
[2019-07-17] MEDS: IPRATROPIUM 0.5MG/ALBUTEROL 2.5MG INH SOL UD 3ML (DUONEB)(J7620) NEB SCH ×3 (08:30→19:56)
[2019-07-17] MEDS: PANTOPRAZOLE 40MG INJ (PROTONIX) (C9113) IV SCH (09:46)
[2019-07-17] MEDS: THEOPHYLLINE (THEO-24) 100MG SR **CAPSULE PO SCH (09:46)
[2019-07-17] MEDS: PERCOCET 5MG/325MG TAB PO PRN ×2 (11:25→18:26)
[2019-07-17] MEDS ORDERED: PIPERACILLIN/TAZOBACTAM SOD 3.375 GM in D5W MINI-BAG PLUS 50 ML IV ONE (15:45)
[2019-07-17] MEDS ORDERED: NS 1,000 ML IV ONE (15:45)
[2019-07-17 16:20] LABS: ABG BASE EXCESS 0.8 (-2.0-2.0); ABG O2 SATURATION 97.6 % (95.0-99.0); ABG PARTIAL PRESSURE CO2 38.5 mmHg (35.0-45.0); ABG PARTIAL PRESSURE O2 89.4 mmHg (75.0-100.0); ABG STANDARD HCO3 25.2 MEQ/L (22.0-26.0); ABG TOTAL CO2 26.2 MEQ/L (23.0-31.0); ABG pH (ARTERIAL) 7.431 UNITS (7.350-7.450)
[2019-07-17] MEDS: PIPERACILLIN/TAZOBACTAM SOD 3.375 GM in D5W MINI-BAG PLUS 50 ML IV SCH ×2 (18:21→23:54)
[2019-07-17] MEDS: NS 1,000 ML IV SCH (18:21)
[2019-07-17] MEDS ORDERED: EZETIMIBE 10 MG TAB (ZETIA) PO SCH (21:00)
[2019-07-17] MEDS ORDERED: HumaLOG INSULIN (NovoLOG) PER UNIT SC SCH (21:00)
[2019-07-17] MEDS: LOSARTAN 50 MG TAB PO SCH (21:47)
[2019-07-18] VITALS (10 sets, daily range): BP systolic 143–171; BP diastolic 60–74; O2SAT 88–96
[2019-07-18] MEDS: IPRATROPIUM 0.5MG/ALBUTEROL 2.5MG INH SOL UD 3ML (DUONEB)(J7620) NEB SCH ×3 (02:00→14:00)
[2019-07-18] MEDS: NS 1,000 ML IV SCH (03:43)
[2019-07-18 04:12] LABS: BASO % 0.1 % (0.0-1.0); HEMOGLOBIN 8.6 g/dl (12.0-15.5); LYMPH # 0.8 10^3/uL (1.5-4.5); LYMPH % 9.7 % (24.0-44.0); MEAN CORPUSCULAR HEMOGLOBIN 19.9 pg (27.0-33.0); MEAN CORPUSCULAR HGB CONC 28.7 g/dl (32.0-36.5); MEAN CORPUSCULAR VOLUME 69.4 fl (80.0-96.0); MONO # 0.2 10^3/uL (0.0-0.8); MONO % 2.4 % (0.0-5.0); NEUTROPHILS # 7.5 10^3/uL (1.8-7.7); NEUTROPHILS % 87.1 % (36.0-66.0); PLATELET COUNT, AUTOMATED 401 10^3/uL (150-450); RED BLOOD COUNT 4.32 10^6/uL (4.00-5.40); WHITE BLOOD COUNT 8.6 10^3/uL (4.0-10.0)
[2019-07-18 04:35] LABS: BLOOD UREA NITROGEN 14 MG/DL (7-18); CALCIUM LEVEL 8.5 MG/DL (8.8-10.2); CARBON DIOXIDE LEVEL 29 MEQ/L (21-32); CHLORIDE LEVEL 104 MEQ/L (98-107); CREATININE FOR GFR 0.83 MG/DL (0.55-1.30); GLOMERULAR FILTRATION RATE > 60.0 (>39); GLUCOSE, FASTING 285 MG/DL (70-100); SODIUM LEVEL 139 MEQ/L (136-145)
[2019-07-18] MEDS: PIPERACILLIN/TAZOBACTAM SOD 3.375 GM in D5W MINI-BAG PLUS 50 ML IV SCH ×2 (05:47→12:57)
[2019-07-18] MEDS: LEVOTHYROXINE 75MCG TABLET (0.075MG) PO SCH (05:47)
[2019-07-18] MEDS: methylPREDNISolone INJ 125 MG/2 ML VIAL (J2930) IV SCH (05:47)
[2019-07-18] MEDS ORDERED: LevoFLOXacin 750 MG TABLET PO SCH (06:00)
[2019-07-18] MEDS ORDERED: ADVAIR HFA 230/21MCG INHALER INH SCH (08:00)
[2019-07-18] MEDS: TIOTROPIUM INHALER/CAPSULE (SPIRIVA) INH SCH (08:55)
[2019-07-18] MEDS ORDERED: MAGNESIUM CHLORIDE 64 MG TABCR (SLO MAG) PO SCH (09:00)
[2019-07-18] MEDS: THEOPHYLLINE (THEO-24) 100MG SR **CAPSULE PO SCH (09:24)
[2019-07-18] MEDS: HumaLOG INSULIN (NovoLOG) PER UNIT SC SCH ×3 (09:24→17:30)
[2019-07-18] MEDS: PANTOPRAZOLE 40MG INJ (PROTONIX) (C9113) IV SCH (09:56)
--- NOTE | 2019-07-18 10:11 | ECGEPIP ---
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
--- NOTE | 2019-07-18 11:36 | CR ---
DATE OF CONSULTATION: 07/18/2019 ATTENDING PHYSICIAN: Dr. Rain REASON FOR CONSULTATION: Lung disease. HISTORY OF PRESENT ILLNESS: Ms. Carter is a 79-year-old female who has smoked since age 17. She continues to smoke and has absolutely zero interest in quitting. She is admitted now as yet again for another chronic obstructive pulmonary disease (COPD) exacerbation. She tells me that she ran out of medications and is in between primary care providers and has not taken anything in several weeks. She did have a nebulizer at home but that was broken by her cats and she has not replaced it. She does have chronic sputum production, clear to whitish, no hemoptysis. No fevers or chills. Denies any chest pain. She was scheduled for followup in the outpatient setting for a right upper lobe nodule, but never presented for evaluation. She has had a CT angiogram done here, which fortunately are unchanged from her last scan of July 06, 2018. ALLERGIES: List as: 1. CEPHALOSPORINS. 2. SULFA. 3. AMOXICILLIN. 4. APIXABAN. 5. CARISOPRODOL. 6. CLAVULANIC ACID. 7. CODEINE. MEDICATIONS IN HOSPITAL: - DuoNebs - Protonix - Levaquin - Tessalon Perles - insulin - Zetia - Synthroid - Cozaar - Percocet - Spiriva - theophylline - Zosyn - Slow-Mag PAST MEDICAL HISTORY: Significant for: Advanced obstructive lung disease with the last FEV1 of 0.66 liters or 35% of predicted. Previous pulmonary embolism, currently not on anticoagulation. Hypertension. Alt-wzfbmdh-ldkwbdpes diabetes mellitus. Hypothyroidism. Chronic pain syndrome. Dyslipidemia. SURGERIES: She has had: Partial thyroidectomy. Tonsillectomy. Herniorrhaphy. Cataract removal. SOCIAL HISTORY: Continues to smoke more than a pack per day. Lives with family. She does have cats in the home. FAMILY HISTORY: Significant for mother with heart disease and hypertension. Father with diabetes. REVIEW OF SYSTEMS: Constitutional: Negative for any recent fevers or chills. HEENT: Unremarkable for blurred or double vision. Pulmonary: As per HPI. Cardiac: Unremarkable for angina. Gastrointestinal (GI): Unremarkable for nausea. Genitourinary (): Unremarkable for dysuria or urgency. Neurologic: Unremarkable for seizures or strokes. Endocrine: Positive for diabetes and hypothyroidism. Dermatologic: Notable for intermittent rashes. Musculoskeletal: Unremarkable for any new arthralgias or myalgias. Neurologic: Unremarkable. Psychiatric: Unremarkable. PHYSICAL EXAMINATION: Currently reveals an elderly female who appears her stated age, easily conversant during the interview and exam. Blood pressure 156/60, heart rate 80s and regular, respiratory rate of 16-18 without accessory muscle use and she is currently afebrile. HEENT is otherwise generally normocephalic, atraumatic. Pupils reactive. Neck is supple. Trache is in the midline. Chest diminished but symmetric expansion. Mild hyperresonance to percussion. Tactile fremitus palpable. No focal wheeze, rhonchus, crackles or rubs. CARDIAC EXAM: Regular with no gallop. Peripheral pulses palpable with no edema. ABDOMEN: Soft, nontender with active bowel sounds. No convincing organomegaly or masses. EXTREMITIES: Show no cyanosis or clubbing. NEUROLOGIC: She is awake, alert and appropriate. PSYCH: Normal mood and affect. Pulse oximetry is 91% on her usual [address] scan as outlined above shows significant emphysema and multiple 6-7 mm nodules, unchanged now for about a year. This will need followup in the outpatient setting. Laboratories show a white blood cell count of 8.6, hemoglobin 8.6, platelet count 401, 80% segs, no bands. Sodium 139, K of 4.0, chloride 104, CO2 29, BUN 14, creatinine 0.83, glucose 285. Blood gas done yesterday at 1605 hours on her 3 liter shows pH of 7.31, pCO2 of 28.5, pO2 of 89.4, saturation 97.6%. IMPRESSION: 1. Advanced obstructive lung disease. 2. Continued tobacco abuse. 3. Underlying emphysema. 4. Chronic hypoxemic respiratory failure- oxygen requiring. 5. Chronic known lung nodules, continued followup warranted. RECOMMENDATIONS: At this point, I believe that theophylline is not the best choice of medications for her and it will be discontinued. Will start a combination of inhaled steroid and long acting bronchodilator in the form of Advair. She will continue her Spiriva. I discussed smoking cessation with her and she is absolutely completely uninterested even in the discussion. She will need followup of her CT scan in 3-6 months and I will make those arrangements in the outpatient setting. She unfortunately has a history of no showing for appointments which does not help. She tells me she is in between primary care providers at this point as well. I believe her dyspnea really is at her baseline, further complicated not only by the recent hot and humid weather but the fact she has been noncompliant with medications and continues to smoke. She will followed while she is in the hospital. Further recommendations will be made in the progress record as new information becomes available. I will make arrangements to see her in the outpatient setting as well. ROMAN
[2019-07-18] MEDS ORDERED: methylPREDNISolone INJ 125 MG/2 ML VIAL (J2930) IV SCH (14:00)
[2019-07-18] MEDS ORDERED: PRED5PAK PO (17:34)
[2019-07-18] MEDS: PERCOCET 5MG/325MG TAB PO PRN (17:57)
[2019-07-18] MEDS: LOSARTAN 50 MG TAB PO SCH (17:59)
[2019-07-18] MEDS ORDERED: OXYC1TAB23 PO (18:09)
--- NOTE | 2019-07-18 19:12 | DS.PDOC ---
Discharge Summary General Date of Admission Jul 18, 2019 at 14:34 Date of Discharge 07/18/19 Attending Physician: GAYLE SHELLEY DO Discharge Summary PROCEDURES PERFORMED DURING STAY: None ADMITTING DIAGNOSES: SIRS. Acute hypercarbic respiratory failure secondary to acute COPD Left-sided abdominal and back pain History of pulmonary embolism NIDDM Uncontrolled Hypertension Hypothyroidism Tobacco abuse. DISCHARGE DIAGNOSES: SIRS. Acute hypercarbic respiratory failure secondary to acute COPD Left-sided abdominal and back pain History of pulmonary embolism NIDDM Uncontrolled Hypertension Hypothyroidism Tobacco abuse. COMPLICATIONS/CHIEF COMPLAINT: Abdominal Pian, Copd Exacerbation,Sirs. HISTORY OF PRESENT ILLNESS: Ms. Cai is a 79-year-old female with a PMH of of COPD, Chronic HTN, recently diagnosed PE (off of apixaban bc of allergy), NIDDM, Hypothyroidism, Chronic back and shoulder pain, Dyslipidemia and Hearing loss who will be admitted primarily for management of acute COPD. HOSPITAL COURSE: During hospital stay patient treatment with IV steroids, IV antibiotics, inhalers, respiratory therapy. Patient's breathing improved to her baseline. consulted patient and recommended to discontinue theophylline, start a combination of inhaled steroid and long acting bronchodilator in the form of Advair. She will continue her Spiriva. She will need to followup of her CT scan in 3-6 months due to high risk nodules which were found on chest CT and Dr Kent will make those arrangements in the outpatient setting. DISCHARGE MEDICATIONS: Please see below. ALLERGIES: Please see below. PHYSICAL EXAMINATION ON DISCHARGE: GENERAL APPEARANCE: Well-nourished, well-developed, not in apparent distress, does not appear toxic or septic HEENT: Normocephalic, atraumatic, mucous members dry, nasal cannula in place, lips acyanotic CARDIOVASCULAR: Regular rate and rhythm, no murmurs, rubs or gallops, radial pulses are intact, there is no acute or extremity swelling LUNGS: there is mild expiratory wheezing bilaterally ABDOMEN: Soft and nontender on palpation MUSCULOSKELETAL: There is no calf tenderness EXTREMITIES: Range of motion is intact in all 4 extremities NEUROLOGICAL:. Cranial nerves 2-12 are grossly intact, except for auditory. Speech is not dysarthric PSYCHIATRIC: Alert and oriented person, able to understand and follow commands LABORATORY DATA: Please see below. IMAGING: CT of the chest "IMPRESSION: 1. No acute findings in the chest. No pulmonary embolism. 2. Multiple solid pulmonary nodules ranging in size from 4 mm to 7 mm as detailed above, which are stable compared to the prior CT scan on 07/06/2018. .... 3. 11 mm in short axis nonspecific enlarged precarinal lymph node, which is stable compared to the prior CT scan on 07/06/2018. 4. Centrilobular emphysematous changes, which are similar in appearance compared to the prior CT scan on 07/06/2018. 5. Mild chronic anterior wedge compression fracture of T4, which is unchanged compared to the prior CT scan on 07/06/2019 CT of the abdomen "IMPRESSION: 1. 18 mm linear metallic density object in the cecum and another 18 mm linear metallic density object in the proximal descending colon, which should be correlated with the patient's ingestion history. No evidence for a perforated viscus or bowel obstruction. 2. Large fat containing periumbilical hernia located just above the umbilicus that is similar in appearance compared to the prior CT scan on 03/15/2015. 3. Lumbosacral transitional vertebra that was designated as L5 above the last well-defined intervertebral disc, and there is broadening of the both transverse proceses of the lumbosacral transitional vertebra, which are fused to both sides of the sacrum (Castellvi type IIIb lumbosacral transitional vertebra) and this stabilizes the level below the lumbosacral transitional vertebra and leads to the propensity for increased mobility and degenerative disc disease at the level above the lumbosacral transitional vertebra (Bertolotti's syndrome). 4. L4-L5: Mild loss of disc dorsally, vacuum phenomenon in the intervertebral disc, a broad-based posterior protrusion that is eccentric to the right and causes mild stenosis of the right lateral recess, and mild osteoarthritis of the facet joints." PROGNOSIS: guarded due to advanced COPD ACTIVITY: As tolerated DIET: Cardiac DISCHARGE PLAN: Home DISPOSITION: 01 Home, Self-Care. DISCHARGE INSTRUCTIONS: 1. Follow-up with contract runner Repeat chest CT in 3-5 months ITEMS TO FOLLOWUP ON ON OUTPATIENT: 1. Stop smoking DISCHARGE CONDITION: Stable TIME SPENT ON DISCHARGE: Greater than 25 minutes. Vital Signs/I&Os Vital Signs Date Time Temp Pulse Resp B/P (MAP) Pulse Ox O2 Delivery O2 Flow Rate FiO2 07/18/19 17:59 171/74 07/18/19 17:57 20 07/18/19 16:00 98.1 94 95 2.0 07/18/19 06:00 Nasal Cannula 07/17/19 11:25 98 I&O- Last 24 Hours up to 6 AM 07/18/19 06:00 Intake Total 2100 ml Output Total 900 ml Balance 1200 ml Laboratory Data Labs 24H Laboratory Tests 2 07/17/19 19:56: Lactic Acid Followup at 4 Hours 5.8*H 07/17/19 20:11: Bedside Glucose (Misc Panel) 269H 07/17/19 23:35: Lactic Acid Level 3.7*H 07/18/19 03:48: Lactic Acid Followup at 4 Hours 2.1*H, Immature Granulocyte % (Auto) 0.7, White Blood Count 8.6, Red Blood Count 4.32, Hemoglobin 8.6L, Hematocrit 30.0L, Mean Corpuscular Volume 69.4L, Mean Corpuscular Hemoglobin 19.9L, Mean Corpuscular Hemoglobin Concent 28.7L, Red Cell Distribution Width 16.8H, Platelet Count 401, Neutrophils (%) (Auto) 87.1H, Lymphocytes (%) (Auto) 9.7L, Monocytes (%) (Auto) 2.4, Eosinophils (%) (Auto) 0.0, Basophils (%) (Auto) 0.1, Neutrophils # (Auto) 7.5, Lymphocytes # (Auto) 0.8L, Monocytes # (Auto) 0.2, Eosinophils # (Auto) 0 .0, Basophils # (Auto) 0.0, Nucleated Red Blood Cells % (auto) 0.0, Anion Gap 6L, Glomerular Filtration Rate > 60.0, Blood Urea Nitrogen 14, Creatinine 0.83, Sodium Level 139, Potassium Level 4.0, Chloride Level 104, Carbon Dioxide Level 29, Calcium Level 8.5L 07/18/19 11:16: Bedside Glucose (Misc Panel) 276H 07/18/19 16:53: Bedside Glucose (Misc Panel) 198H CBC/BMP Laboratory Tests 07/18/19 03:48 Red Blood Count 4.32, Mean Corpuscular Volume 69.4 L, Mean Corpuscular Hemoglobin 19.9 L, Mean Corpuscular Hemoglobin Concent 28.7 L, Red Cell Distribution Width 16.8 H, Neutrophils (%) (Auto) 87.1 H, Lymphocytes (%) (Auto) 9.7 L, Monocytes (%) (Auto) 2.4, Eosinophils (%) (Auto) 0.0, Basophils (%) (Auto) 0.1, Neutrophils # (Auto) 7.5, Lymphocytes # (Auto) 0.8 L, Monocytes # (Auto) 0.2, Eosinophils # (Auto) 0.0, Basophils # (Auto) 0.0, Calcium Level 8.5 L FSBS Laboratory Tests Test 07/17/19 20:11 07/18/19 11:16 07/18/19 16:53 Range/Units Bedside Glucose (Misc Panel) 269 276 198 83-110 MG/DL Microbiology Microbiology 07/16/19 Blood Culture - Preliminary, Resulted No growth after 24 hours . All specim... 07/16/19 Blood Culture - Preliminary, Resulted No growth after 24 hours . All specim... Discharge Medications Scheduled Cholecalciferol (Vitamin D3) (Vitamin D3) 1,000 Unit Tab, 1,000 UNITS PO DAILY, (Reported) Ezetimibe (Zetia) 10 Mg Tab, 10 MG PO QHS, (Reported) Glipizide (Glipizide Xl) 5 Mg Tab, 5 MG PO DAILY, (Reported) Levothyroxine Sodium (Levothyroxine Sodium) 75 Mcg Tab, 75 MCG PO DAILY, (Reported) Losartan Potassium (Losartan Potassium) 100 Mg Tab, 100 MG PO QHS, (Reported) Metformin HCl (Metformin HCl) 500 Mg Tab, 500 MG PO BID, (Reported) PATIENT INSTRUCTED TO HOLD MED UNTIL 07/18/19 DUE TO IV CONTRAST Prednisone (Prednisone) 5 Mg Tab.ds.pk, 0 PO ASDIRECTED 6 day dose pack taper Salmeterol/Fluticasone (Advair 500-50 Diskus) 28 Puff/Inhaler Aerp, 1 PUFF INH BID, (Reported) Simvastatin (Zocor) 80 Mg Tablet, 80 MG PO QHS, (Reported) Tiotropium [place] (Spiriva) 18 Mcg Cap, 1 PUFF INH DAILY, (Reported) Scheduled PRN Albuterol Sulfate (Ventolin Hfa) 108 Mcg/Act Aer, 2 PUFF INH Q4H PRN for SHORTNESS OF BREATH, (Reported) Oxycodone HCl/Acetaminophen (Oxycodone-Acetaminophen 5-325) 1 Each Tablet, 1 TAB PO TID PRN for PAIN, (Reported) Oxycodone HCl/Acetaminophen (Oxycodone-Acetaminophen 5-325) 1 Each Tablet, 1 TAB PO TIDP PRN for pain Allergies Coded Allergies: Cephalosporins (Verified Allergy, Mild, RASH, 07/17/19) apixaban (Verified Allergy, Mild, RASH, 07/17/19) carisoprodol (Verified Allergy, Mild, RASH, 07/17/19) codeine (Verified Allergy, Mild, RASH, 07/17/19) Sulfa (Sulfonamide Antibiotics) (Verified Allergy, Unknown, UNKNOWN RXN A CHILD, 07/17/19) amoxicillin (Verified Allergy, Unknown, VOMITING, RASH, 07/17/19) AMOXICILLIN, PENICILLIN, AMPICILLIN OK PER PT clavulanic acid (Verified Allergy, Unknown, VOMITING, RASH, 07/17/19) AMOXICILLIN, PENICILLIN, AMPICILLIN OK PER PT GAYLE SHELLEY DO Jul 18, 2019 19:12
[2019-07-19] MEDS ORDERED: TIOTROPIUM INHALER/CAPSULE (SPIRIVA) INH SCH (08:00)
[2019-07-19] MEDS ORDERED: predniSONE 20 MG TAB PO SCH (09:00)
== END 2019-07-18 18:09 | disposition home or self-care (01) | DRG 189 ==
LOC: M ED 21:10 → M ED INP 21:11 → M PCU 07-17 17:21 → OBSVTOIN 07-18 14:34
PROVIDERS: ADMIT Internal Medicine; ATTEND Internal Medicine
DX: J96.01 Acute respiratory failure with hypoxia (principal); J44.1 Chronic obstructive pulmonary disease with (acute) exacerbation; R65.10 Systemic inflammatory response syndrome (SIRS) of non-infectious origin without acute organ dysfunction; E03.9 Hypothyroidism, unspecified; I10 Essential (primary) hypertension; Z86.711 Personal history of pulmonary embolism; F17.200 Nicotine dependence, unspecified, uncomplicated; E11.9 Type 2 diabetes mellitus without complications; M54.5 Low back pain; E78.5 Hyperlipidemia, unspecified; R91.8 Other nonspecific abnormal finding of lung field; Z79.899 Other long term (current) drug therapy; Z88.2 Allergy status to sulfonamides; Z88.5 Allergy status to narcotic agent; Z88.8 Allergy status to other drugs, medicaments and biological substances; M81.0 Age-related osteoporosis without current pathological fracture; R10.9 Unspecified abdominal pain; G89.29 Other chronic pain

== ENCOUNTER → 2019-07-21 | Outpatient (REF) | payer MEDICARE, OTHER ==
[~2019-07-21] MED LIST changes: +PRED5PAK PO
[2019-07-21 16:47] LABS: BASO % 0.3 % (0.0-1.0); EOS # 0.2 10^3/uL (0.0-0.50); EOS % 1.8 % (0.0-3.0); HEMATOCRIT 35.8 % (36.0-47.0); HEMOGLOBIN 10.2 g/dl (12.0-15.5); LYMPH # 2.7 10^3/uL (1.5-4.5); LYMPH % 23.2 % (24.0-44.0); MEAN CORPUSCULAR HEMOGLOBIN 19.8 pg (27.0-33.0); MEAN CORPUSCULAR HGB CONC 28.5 g/dl (32.0-36.5); MEAN CORPUSCULAR VOLUME 69.6 fl (80.0-96.0); MONO # 0.9 10^3/uL (0.0-0.8); MONO % 8.1 % (0.0-5.0); NEUTROPHILS # 7.7 10^3/uL (1.8-7.7); NEUTROPHILS % 65.7 % (36.0-66.0); PLATELET COUNT, AUTOMATED 475 10^3/uL (150-450); RED BLOOD COUNT 5.14 10^6/uL (4.00-5.40); WHITE BLOOD COUNT 11.7 10^3/uL (4.0-10.0)
[2019-07-21 16:57] LABS: ALBUMIN 3.3 GM/DL (3.2-5.2); ALT/SGPT 15 U/L (12-78); BILIRUBIN,TOTAL 0.2 MG/DL (0.2-1.0); BLOOD UREA NITROGEN 13 MG/DL (7-18); CALCIUM LEVEL 8.7 MG/DL (8.8-10.2); CARBON DIOXIDE LEVEL 32 MEQ/L (21-32); CHLORIDE LEVEL 103 MEQ/L (98-107); CHOLESTEROL LEVEL 212 MG/DL (<200); CHOLESTEROL RISK RATIO 2.904 (<5); CREATININE FOR GFR 0.72 MG/DL (0.55-1.30); GLOMERULAR FILTRATION RATE > 60.0 (>39); GLUCOSE, FASTING 173 MG/DL (70-100); HDL CHOLESTEROL 73 MG/DL (>40); IRON (FE) 22 UG/DL (50-170); LDL CHOLESTEROL 97 MG/DL (<100); NON-HDL-C 139 MG/DL; POTASSIUM SERUM 3.7 MEQ/L (3.5-5.1); SODIUM LEVEL 143 MEQ/L (136-145); TOTAL IRON BINDING CAPACITY 437 UG/DL (250-450); TOTAL PROTEIN 6.7 GM/DL (6.4-8.2); TRIGLYCERIDES LEVEL 209 MG/DL (<150)
[2019-07-21 17:29] LABS: HEMOGLOBIN A1c 8.4 %
== END ==
LOC: M SFHCPLAZ 13:57
PROVIDERS: ATTEND Nurse Practitioner Family
DX: E11.9 Type 2 diabetes mellitus without complications (principal); E78.5 Hyperlipidemia, unspecified; E03.9 Hypothyroidism, unspecified; D64.9 Anemia, unspecified
CPT/HCPCS: 36415; 80053; 80061; 83036; 83550; 84443; 85025; G0463

== ENCOUNTER → 2019-08-03 | Outpatient (CLI) | payer MEDICARE, OTHER | LOC: M LAB 15:23 | PROVIDERS: ATTEND Internal Medicine Pulmonary Disease | DX: J44.1 Chronic obstructive pulmonary disease with (acute) exacerbation (principal) ==

== ENCOUNTER 2019-09-04 11:10 | Inpatient (IN) | payer MEDICARE, OTHER ==
[~2019-09-04] VITALS: Ht 157.5 cm; Wt 69.0 kg
[2019-09-04] MEDS: TIOTROPIUM INHALER/CAPSULE (SPIRIVA) INH SCH (08:00)
[2019-09-04] MEDS: IPRATROPIUM 0.5MG/ALBUTEROL 2.5MG INH SOL UD 3ML (DUONEB)(J7620) NEB SCH ×6 (11:48→23:53)
--- NOTE | 2019-09-04 12:14 | REP ---
CHEST, SINGLE VIEW: Single view of the chest is performed and compared to prior studies most recent of which is 07/16/2019. Chronic interstitial densities are again seen in the lungs, diffusely bilaterally. No new superimposed acute infiltrate is seen. The heart is not significantly enlarged. The mediastinal silhouette is unchanged with calcification of the thoracic aorta noted. IMPRESSION: Stable chronic interstitial changes diffusely bilaterally. No definite superimposed acute infiltrate. Electronically Signed by Nestor Deras MD 09/04/2019 11:31 P
[2019-09-04 12:16] LABS: BASO # 0.1 10^3/uL (0.0-0.2); EOS # 0.3 10^3/uL (0.0-0.5); EOS % 2.9 % (0.0-3.0); HEMATOCRIT 35.5 % (36.0-47.0); HEMOGLOBIN 9.9 g/dl (12.0-15.5); LYMPH # 1.9 10^3/uL (1.5-5.0); LYMPH % 18.3 % (24.0-44.0); MEAN CORPUSCULAR HGB CONC 27.9 g/dl (32.0-36.5); MEAN CORPUSCULAR VOLUME 71.7 fl (80.0-96.0); MONO # 0.8 10^3/uL (0.0-0.8); MONO % 7.2 % (0.0-5.0); NEUTROPHILS # 7.3 10^3/uL (1.5-8.5); NEUTROPHILS % 70.1 % (36.0-66.0); PLATELET COUNT, AUTOMATED 433 10^3/uL (150-450); RED BLOOD COUNT 4.95 10^6/uL (4.00-5.40); WHITE BLOOD COUNT 10.5 10^3/uL (4.0-10.0)
[2019-09-04 12:28] LABS: INR 1.09; PROTHROMBIN TIME 13.8 SECONDS (11.8-14.0)
[2019-09-04 12:53] LABS: ALBUMIN 2.9 GM/DL (3.2-5.2); ALT/SGPT 13 U/L (12-78); BILIRUBIN,DIRECT < 0.1 MG/DL (0.0-0.2); BILIRUBIN,TOTAL 0.3 MG/DL (0.2-1.0); BLOOD UREA NITROGEN 13 MG/DL (7-18); CALCIUM LEVEL 8.3 MG/DL (8.8-10.2); CARBON DIOXIDE LEVEL 29 MEQ/L (21-32); CHLORIDE LEVEL 107 MEQ/L (98-107); CK-MB VALUE MASS 1.9 NG/ML (<3.6); CPK CREATINE PHOSPHOKINASE 49 U/L (26-192); CREATININE FOR GFR 0.73 MG/DL (0.55-1.30); GLOMERULAR FILTRATION RATE > 60.0 (>39); GLUCOSE, FASTING 136 MG/DL (70-100); MB/CK RELATIVE INDEX 3.88 (< OR =4); NT-PRO BNP 443 PG/ML (<450); POTASSIUM SERUM 3.8 MEQ/L (3.5-5.1); SODIUM LEVEL 143 MEQ/L (136-145); TOTAL PROTEIN 6.7 GM/DL (6.4-8.2); TROPONIN I 0.03 NG/ML (< 0.10)
[2019-09-04] MEDS ORDERED: IPRATROPIUM 0.5MG/ALBUTEROL 2.5MG INH SOL UD 3ML (DUONEB)(J7620) NEB PRN (14:00)
[2019-09-04] MEDS ORDERED: methylPREDNISolone INJ 40 MG/1 ML VIAL (J2920) IV SCH (14:00)
[2019-09-04] MEDS ORDERED: CITA20TA6 PO (14:26)
[2019-09-04] MEDS ORDERED: FERR1TAB8 PO (14:26)
[2019-09-04] MEDS ORDERED: ALBU83IN INH (14:26)
[2019-09-04] MEDS ORDERED: THEO300T12 PO (14:26)
[2019-09-04] MEDS ORDERED: CitaloPRAM (CeleXA) 20 MG TAB PO PRN (15:00)
[2019-09-04] MEDS ORDERED: LevoFLOXacin IV 750 MG in IV 1 EA IV SCH (15:00)
[2019-09-04] MEDS ORDERED: MORPHINE 4 MG/ML 1ML VIAL/SYRINGE (J2270) IV ONE ×2 (15:00→16:00)
--- NOTE | 2019-09-04 15:44 | HPEPDOC ---
[facility] Medical History & Physical Date of Admission Sep 04, 2019 Date of Service: Sep 04, 2019 History and Physical CHIEF COMPLAINT: SOB HISTORY OF PRESENT ILLNESS: 79 yo female for one week history of worsening shortness of breath, with cough occasionally productive of clear sputum. Denies chest pain, fevers, chills or sick contacts. Active smoker. PAST MEDICAL HISTORY: COPD - oxygen dependent Hx of PE NIDDM hypothyroidism HTN DLP chronic pain syndrome nicotine abuse chronic lung nodules ALLERGIES: Please see below. REVIEW OF SYSTEMS: Negative except as per HPI. HOME MEDICATIONS: Please see below. PHYSICAL EXAMINATION: VITAL SIGNS: See below General: NAD, disheveled, elderly, lying comfortably in bed HEENT: NC/AT Lungs: diffuse wheezing Heart: +S1S2, RRR Abd: soft, NT, +BS Ext: no edema LABORATORY DATA: See below. MICROBIOLOGY: Please see below. ASSESSMENT: 79 yo female for COPD exacerbation, active smoker, oxygen dependent at baseline (2L). #COPD exacerbation - IV steroids/levaquin - IS/acapella - respiratory treatments - supplemental O2 #Hx of PE #NIDDM - insulin sliding scale as inpatient #hypothyroidism #HTN - cozaar #DLP - zetia, zocor #chronic pain syndrome - continue with home regimen analgesic - percocet #nicotine abuse - not interested in nicotine replacement therapy - cessation counselling #chronic lung nodules - follow as o/p with pulmonary #depression/anxiety - celexa #DVT prophylaxis Vital Signs Vital Signs Date Time Temp Pulse Resp B/P (MAP) Pulse Ox O2 Delivery O2 Flow Rate FiO2 09/04/19 15:05 82 99 09/04/19 15:04 178/72 (107) 09/04/19 14:46 22 Nasal Cannula 2.0 09/04/19 11:24 98.2 Laboratory Data Labs 24H Laboratory Tests 2 09/04/19 11:40: POC pH (Misc Panel) 7.340L, POC Base Excess (Misc Panel) 1.0, POC Saturated Percent O2 (Misc) 75L, POC pO2 (Misc Panel) 43.0*L, POC pCO2 (Misc Panel) 50.2H, POC HCO3 (Misc Panel) 27.1H, POC Total CO2 (Misc Panel) 29.0H 09/04/19 11:58: Immature Granulocyte % (Auto) 0.5, White Blood Count 10.5H, Red Blood Count 4.95, Hemoglobin 9.9L, Hematocrit 35.5L, Mean Corpuscular Volume 71.7L, Mean Corpuscular Hemoglobin 20.0L, Mean Corpuscular Hemoglobin Concent 27.9L, Red Cell Distribution Width 19.7H, Platelet Count 433, Neutrophils (%) (Auto) 70.1H, Lymphocytes (%) (Auto) 18.3L, Monocytes (%) (Auto) 7.2H, Eosinophils (%) (Auto) 2.9, Basophils (%) (Auto) 1.0, Neutrophils # (Auto) 7.3, Lymphocytes # (Auto) 1.9, Monocytes # (Auto) 0.8, Eosinophils # (Auto) 0.3, Basophils # (Auto) 0.1, Nucleated Red Blood Cells % (auto) 0.0, Prothrombin Time 13.8, Prothromb Time International Ratio 1.09, Anion Gap 7L, Glomerular Filtration Rate > 60.0, Lactic Acid Level 1.7, Calcium Level 8.3L, Aspartate Amino Transf (AST/SGOT) 12, Alanine Aminotransferase (ALT/SGPT) 13, Alkaline Phosphatase 71, Total Bilirubin 0.3, Direct Bilirubin < 0.1, Total Creatine Kinase 49, Creatine Kinase MB 1.9, Creatine Kinase MB Relative Index 3.88, Troponin I 0.03, RR-Ott-F-Type Natriuretic Peptide 443, Total Protein 6.7, Albumin 2.9L, Albumin/Globulin Ratio 0.76L, Thyroid Stimulating Hormone (TSH) 5.860H CBC/BMP Laboratory Tests 09/04/19 11:58 Red Blood Count 4.95, Mean Corpuscular Volume 71.7 L, Mean Corpuscular Hemoglobin 20.0 L, Mean Corpuscular Hemoglobin Concent 27.9 L, Red Cell Distribution Width 19.7 H, Neutrophils (%) (Auto) 70.1 H, Lymphocytes (%) (Auto) 18.3 L, Monocytes (%) (Auto) 7.2 H, Eosinophils (%) (Auto) 2.9, Basophils (%) (Auto) 1.0, Neutrophils # (Auto) 7.3, Lymphocytes # (Auto) 1.9, Monocytes # (Auto) 0.8, Eosinophils # (Auto) 0.3, Basophils # (Auto) 0.1 Microbiology Microbiology 09/04/19 Blood Culture, Received Pending 09/04/19 Blood Culture, Received Pending 09/04/19 Respiratory Virus Panel (PCR) (LANA) - Final, Complete Home Medications Scheduled Cholecalciferol (Vitamin D3) (Vitamin D3) 1,000 Unit Tab, 1,000 UNITS PO DAILY Ezetimibe (Zetia) 10 Mg Tab, 10 MG PO QHS Ferrous Sulfate (Ferrous Sulfate) 325 Mg Tablet, 325 MG PO DAILY Glipizide (Glipizide Xl) 5 Mg Tab, 5 MG PO DAILY Levothyroxine Sodium (Levothyroxine Sodium) 75 Mcg Tab, 75 MCG PO DAILY Losartan Potassium (Losartan Potassium) 100 Mg Tab, 100 MG PO QHS Metformin HCl (Metformin HCl) 500 Mg Tab, 500 MG PO TID Salmeterol/Fluticasone (Advair 500-50 Diskus) 28 Puff/Inhaler Aerp, 1 PUFF INH BID Simvastatin (Zocor) 80 Mg Tablet, 80 MG PO QHS Theophylline Anhydrous (Theophylline Anhydrous) 300 Mg Tab.er.12h, 300 MG PO BID Tiotropium [place] (Spiriva) 18 Mcg Cap, 1 PUFF INH DAILY Scheduled PRN Albuterol Sulf (Albuterol Sulfate) 2.5 Mg/3 Ml Vial.neb, 2.5 MG INH Q4H PRN for SHORTNESS OF BREATH Albuterol Sulfate (Ventolin Hfa) 108 Mcg/Act Aer, 2 PUFF INH Q4H PRN for SHORTNESS OF BREATH Citalopram Hydrobromide (Citalopram HBr) 20 Mg Tablet, 20 MG PO DAILY PRN for DEPRESSION PATIENT STATES SHE TAKES ONLY WHEN SHE FEELS SHE NEEDS IT. Oxycodone HCl/Acetaminophen (Oxycodone-Acetaminophen 5-325) 1 Each Tablet, 1 TAB PO BID PRN for PAIN Allergies Coded Allergies: Cephalosporins (Verified Allergy, Mild, RASH, 07/17/19) apixaban (Verified Allergy, Mild, RASH, 07/17/19) carisoprodol (Verified Allergy, Mild, RASH, 07/17/19) codeine (Verified Allergy, Mild, RASH, 07/17/19) Sulfa (Sulfonamide Antibiotics) (Verified Allergy, Unknown, UNKNOWN RXN A CHILD, 07/17/19) amoxicillin (Verified Allergy, Unknown, VOMITING, RASH, 07/17/19) AMOXICILLIN, PENICILLIN, AMPICILLIN OK PER PT clavulanic acid (Verified Allergy, Unknown, VOMITING, RASH, 07/17/19) AMOXICILLIN, PENICILLIN, AMPICILLIN OK PER PT A-FIB/CHADSVASC A-FIB History Current/History of A-Fib/PAF?: No NORA URRUTIA MD Sep 04, 2019 15:44
[2019-09-04 16:48] VITALS: BP 184/70
[2019-09-04] MEDS: VITAMIN D 1,000 INTERNATIONAL UNITS TABLET PO SCH (17:43)
[2019-09-04] MEDS: methylPREDNISolone INJ 125 MG/2 ML VIAL (J2930) IV SCH (17:44)
[2019-09-04] MEDS: glipiZIDE XL 5 MG TABCR PO SCH (17:50)
[2019-09-04] MEDS ORDERED: GLUCAGON FOR INJ 1 MG VIAL (J1610) SC PRN (19:00)
[2019-09-04] MEDS ORDERED: DEXTROSE 50% 50 ML SYRINGE IV PRN (19:00)
[2019-09-04] MEDS ORDERED: GLUCOSE 4 GM CHEW TABLET PO PRN (19:00)
[2019-09-04] MEDS: ADVAIR HFA 230/21MCG INHALER INH SCH (20:00)
[2019-09-04] MEDS: EZETIMIBE 10 MG TAB (ZETIA) PO SCH (20:56)
[2019-09-04] MEDS: SIMVASTATIN 40 MG TAB PO SCH (20:56)
[2019-09-04] MEDS: LOSARTAN 50 MG TAB PO SCH (20:57)
[2019-09-04] MEDS: HumaLOG INSULIN (NovoLOG) PER UNIT SC SCH (21:08)
[2019-09-04 22:00] VITALS: BP 140/70
[2019-09-04] MEDS: PERCOCET 5MG/325MG TAB PO PRN (22:22)
--- NOTE | 2019-09-05 00:39 | ECGEPIP ---
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
[2019-09-05] MEDS: methylPREDNISolone INJ 125 MG/2 ML VIAL (J2930) IV SCH ×3 (01:39→17:18)
[2019-09-05] MEDS: IPRATROPIUM 0.5MG/ALBUTEROL 2.5MG INH SOL UD 3ML (DUONEB)(J7620) NEB SCH ×6 (02:55→23:05)
[2019-09-05 06:00] VITALS: BP 153/81
[2019-09-05] MEDS: LEVOTHYROXINE 75MCG TABLET (0.075MG) PO SCH (06:06)
[2019-09-05 06:26] LABS: HEMATOCRIT 34.6 % (36.0-47.0); HEMOGLOBIN 9.7 g/dl (12.0-15.5); MEAN CORPUSCULAR HEMOGLOBIN 19.6 pg (27.0-33.0); MEAN CORPUSCULAR VOLUME 69.8 fl (80.0-96.0); PLATELET COUNT, AUTOMATED 394 10^3/uL (150-450); RED BLOOD COUNT 4.96 10^6/uL (4.00-5.40); WHITE BLOOD COUNT 6.7 10^3/uL (4.0-10.0)
[2019-09-05 06:58] LABS: BLOOD UREA NITROGEN 16 MG/DL (7-18); CARBON DIOXIDE LEVEL 29 MEQ/L (21-32); CHLORIDE LEVEL 104 MEQ/L (98-107); CREATININE FOR GFR 0.76 MG/DL (0.55-1.30); GLOMERULAR FILTRATION RATE > 60.0 (>39); GLUCOSE, FASTING 208 MG/DL (70-100); POTASSIUM SERUM 4.7 MEQ/L (3.5-5.1); SODIUM LEVEL 139 MEQ/L (136-145)
[2019-09-05] MEDS: TIOTROPIUM INHALER/CAPSULE (SPIRIVA) INH SCH (07:30)
[2019-09-05] MEDS: ADVAIR HFA 230/21MCG INHALER INH SCH ×2 (07:42→19:08)
[2019-09-05] MEDS: VITAMIN D 1,000 INTERNATIONAL UNITS TABLET PO SCH (08:16)
[2019-09-05] MEDS: FERROUS SULFATE 325MG TAB PO SCH (08:16)
[2019-09-05] MEDS: glipiZIDE XL 5 MG TABCR PO SCH (08:16)
[2019-09-05] MEDS: PANTOPRAZOLE 40MG TAB (PROTONIX) PO SCH (08:16)
[2019-09-05] MEDS: HumaLOG INSULIN (NovoLOG) PER UNIT SC SCH ×4 (08:17→21:53)
[2019-09-05] MEDS: ENOXAPARIN 40 MG/0.4 ML SYRINGE (J1650) SC SCH (08:18)
[2019-09-05] MEDS: PERCOCET 5MG/325MG TAB PO PRN (12:28)
--- NOTE | 2019-09-05 13:03 | IPNPDOC ---
Subjective Date Seen The patient was seen on 09/05/19. Subjective Chief Complaint/HPI Says her breathing is still bad. Has dry cough. Cannot bring out much phlegm. No fever or chils, no chest pain. No abdominal pain , no nausea or vomiting or diarrhea, no constipation Objective Physical Examination General Exam: Positive: Alert, Cooperative, Mild Distress (having conversational dyspnea for 7 to 8 words. ) Eye Exam: Positive: PERRLA, Conjunctiva & lids normal, EOMI; Negative: Sclera icteric ENT Exam: Positive: Atraumatic, Mucous membr. moist/pink, Pharynx Normal Neck Exam: Positive: Supple; Negative: JVD, thyromegaly Chest Exam: Positive: Rhonchi, Wheezing, Diminished Heart Exam: Positive: Rate Normal, Regular Rhythm, Normal S1, Normal S2; Negative: Murmurs, Rubs Abdomen Exam: Positive: Normal bowel sounds, Soft, Hernia (prsent); Negative: Tenderness, Hepatospenomegaly Extremity Exam: Positive: Normal pulses; Negative: Clubbing, Cyanosis, Edema Skin Exam: Positive: Nl turgor and temperature; Negative: Rash, Breakdown Assessment /Plan Assessment 79 yo female with PMH of COPD with chronic respiratory failure with hypoxia, Hx of PE, NIDDM, hypothyroidism, HTN, DLP, chronic pain syndrome, nicotine abuse, chronic lung nodules admitted for COPD exacerbation #COPD exacerbation IV steroids/Azithromycin IS/acapella respiratory treatments supplemental O2 Spiriva and advair #Chronic respiratory fialure with hypoxia continue oxygen supplementation to maintian spo2 of 88% to 92% #Hx of PE continue anticoagulation #NIDDM insulin sliding scale as inpatient #hypothyroidism synthroid #HTN cozaar #DLP zetia, zocor #chronic Back pain continue with home regimen analgesic - percocet #chronic lung nodules follow as o/p with pulmonary #depression/anxiety celexa #DVT prophylaxis ordered Plan/VTE VTE Prophylaxis Ordered?: Yes VS, I&O, 24H, Fishbone Vital Signs/I&O Vital Signs Date Time Temp Pulse Resp B/P (MAP) Pulse Ox O2 Delivery O2 Flow Rate FiO2 09/05/19 12:28 18 09/05/19 09:17 1.0 09/05/19 07:43 Nasal Cannula 09/05/19 06:00 97.0 65 153/81 (105) 98 I&O- Last 24 Hours up to 6 AM 09/05/19 05:59 Intake Total 660 ml Output Total 1200 ml Balance -540 ml Laboratory Data 24H LABS Laboratory Tests 2 09/04/19 17:49: Bedside Glucose (Misc Panel) 305H 09/04/19 20:56: Bedside Glucose (Misc Panel) 258H 09/05/19 05:54: Nucleated Red Blood Cells % (auto) 0.0, Anion Gap 6L, Glomerular Filtration Rate > 60.0, Blood Urea Nitrogen 16, Creatinine 0.76, Sodium Level 139, Potassium Level 4.7#, Chloride Level 104, Carbon Dioxide Level 29, Calcium Level 9.0 09/05/19 11:20: Bedside Glucose (Misc Panel) 278H CBC/BMP Laboratory Tests 09/05/19 05:54 Red Blood Count 4.96, Mean Corpuscular Volume 69.8 L, Mean Corpuscular Hemoglobin 19.6 L, Mean Corpuscular Hemoglobin Concent 28.0 L, Red Cell Distribution Width 19.3 H, Calcium Level 9.0 Microbiology Microbiology 09/04/19 Gram Stain - Final, Complete 09/04/19 Sputum Culture - Final, Complete 09/04/19 Blood Culture - Preliminary, Resulted No growth after 24 hours . All specim... 09/04/19 Blood Culture - Preliminary, Resulted No growth after 24 hours . All specim... 09/04/19 Respiratory Virus Panel (PCR) ([facility]) - Final, Complete CLAUDE TORRES MD Sep 05, 2019 13:03
[2019-09-05 14:00] VITALS: BP 138/50
[2019-09-05] MEDS ORDERED: AZITHROMYCIN 250 MG TAB PO SCH (21:00)
[2019-09-05] MEDS: SIMVASTATIN 40 MG TAB PO SCH (21:51)
[2019-09-05 21:52] VITALS: BP 158/70
[2019-09-05] MEDS: EZETIMIBE 10 MG TAB (ZETIA) PO SCH (21:52)
[2019-09-05] MEDS: LOSARTAN 50 MG TAB PO SCH (21:52)
[2019-09-05 22:00] VITALS: BP 156/70
[2019-09-06] MEDS: methylPREDNISolone INJ 125 MG/2 ML VIAL (J2930) IV SCH ×2 (00:20→09:16)
[2019-09-06] MEDS: IPRATROPIUM 0.5MG/ALBUTEROL 2.5MG INH SOL UD 3ML (DUONEB)(J7620) NEB SCH ×2 (03:09→07:40)
[2019-09-06] MEDS: LEVOTHYROXINE 75MCG TABLET (0.075MG) PO SCH (05:14)
[2019-09-06] MEDS: PERCOCET 5MG/325MG TAB PO PRN (05:16)
[2019-09-06 06:00] VITALS: BP 174/50
[2019-09-06] MEDS: ADVAIR HFA 230/21MCG INHALER INH SCH (07:27)
[2019-09-06] MEDS: TIOTROPIUM INHALER/CAPSULE (SPIRIVA) INH SCH (07:28)
[2019-09-06 08:00] VITALS: BP 150/62
[2019-09-06] MEDS: HumaLOG INSULIN (NovoLOG) PER UNIT SC SCH (08:21)
[2019-09-06] MEDS ORDERED: PRED10TA2 PO (08:52)
[2019-09-06] MEDS ORDERED: AZIT-12 PO (08:52)
[2019-09-06] MEDS ORDERED: FLUBLOK(EGG FREE)(QUAD)INFLUENZA VACC 0.5ML SYRINGE (90682)18YRS&OLDER IM ONE (09:00)
[2019-09-06] MEDS: ENOXAPARIN 40 MG/0.4 ML SYRINGE (J1650) SC SCH (09:00)
[2019-09-06] MEDS: PANTOPRAZOLE 40MG TAB (PROTONIX) PO SCH (09:13)
[2019-09-06] MEDS: VITAMIN D 1,000 INTERNATIONAL UNITS TABLET PO SCH (09:14)
[2019-09-06] MEDS: FERROUS SULFATE 325MG TAB PO SCH (09:14)
[2019-09-06] MEDS: glipiZIDE XL 5 MG TABCR PO SCH (10:46)
--- NOTE | 2019-09-06 22:07 | DS.PDOC ---
Discharge Summary General Date of Admission Sep 04, 2019 at 14:20 Date of Discharge 09/06/19 Discharge Summary PROCEDURES PERFORMED DURING STAY: [None]. DISCHARGE DIAGNOSES: COPD exacerbation Chronic respiratory failure with hypoxia SECONDARY DIAGNOSIS: Depression, Hx of PE, NIDDM, hypothyroidism, HTN, DLP, chronic pain syndrome, nicotine abuse, chronic lung nodules COMPLICATIONS/CHIEF COMPLAINT: Copd With Acute Exacerbation. HISTORY OF PRESENT ILLNESS: See History and physical HOSPITAL COURSE: 79 yo female with PMH of COPD with chronic respiratory failure with hypoxia, Hx of PE, NIDDM, hypothyroidism, HTN, DLP, chronic pain syndrome, nicotine abuse, chronic lung nodules admitted for COPD exacerbation #COPD exacerbation prednisone taper, Azithromycin, Spiriva and advair, theophylline albuterol prn. Nebs prn #Chronic respiratory failure with hypoxia continue oxygen supplementation to maintain spo2 of 88% to 92% #Hx of PE continue anticoagulation #NIDDM resume home medications of metformin and glipizide #hypothyroidism synthroid #HTN cozaar #DLP zetia, zocor #chronic Back pain continue with home regimen analgesic - percocet #chronic lung nodules follow as o/p with pulmonary #depression/anxiety celexa DISCHARGE MEDICATIONS: Please see below. ALLERGIES: Please see below. PHYSICAL EXAMINATION ON DISCHARGE: VITAL SIGNS: Please see below. General Exam: Positive: Alert, Cooperative, Mild Distress (having c onversational dyspnea for 7 to 8 words. ) Eye Exam: Positive: PERRLA, Conjunctiva & lids normal, EOMI; Negative: Sclera icteric ENT Exam: Positive: Atraumatic, Mucous membr. moist/pink, Pharynx Normal Neck Exam: Positive: Supple; Negative: JVD, thyromegaly Chest Exam: Positive: Few scattered ronchi on deep expiration otherwise clear to auscultation. Heart Exam: Positive: Rate Normal, Regular Rhythm, Normal S1, Normal S2; Negative: Murmurs, Rubs Abdomen Exam: Positive: Normal bowel sounds, Soft, Hernia (prsent); Negative: Tenderness, Hepatospenomegaly Extremity Exam: Positive: Normal pulses; Negative: Clubbing, Cyanosis, Edema Skin Exam: Positive: Nl turgor and temperature; Negative: Rash, Breakdown LABORATORY DATA: Please see below. ACTIVITY: [As tolerated]. DIET: Carb consistent DISPOSITION: 01 Home, Self-Care. DISCHARGE INSTRUCTIONS: Follow up PMD in 1 wee Follow up pulmonology in 4 to 6 weeks DISCHARGE CONDITION: [Stable]. TIME SPENT ON DISCHARGE:35 minutes. Vital Signs/I&Os Vital Signs Date Time Temp Pulse Resp B/P (MAP) Pulse Ox O2 Delivery O2 Flow Rate FiO2 09/06/19 08:00 97.5 70 20 150/62 (91) 96 09/06/19 06:00 2.0 09/05/19 07:43 Nasal Cannula I&O- Last 24 Hours up to 6 AM 09/06/19 06:00 Intake Total 1170 ml Output Total 2525 ml Balance -1355 ml Laboratory Data Labs 24H Laboratory Tests 2 09/06/19 07:42: Bedside Glucose (Misc Panel) 298H 09/06/19 11:19: Bedside Glucose (Misc Panel) 275H 09/06/19 11:23: Methicillin-Resist S.aureus DNA PCR NOT DETECTED FSBS Laboratory Tests Test 09/06/19 07:42 09/06/19 11:19 Range/Units Bedside Glucose (Misc Panel) 298 275 83-110 MG/DL Microbiology Microbiology 09/04/19 Gram Stain - Final, Complete 09/04/19 Sputum Culture - Final, Complete 09/04/19 Blood Culture - Preliminary, Resulted No Growth after 48 hours. All Specime... 09/04/19 Blood Culture - Preliminary, Resulted No Growth after 48 hours. All Specime... 09/04/19 Respiratory Virus Panel (PCR) ([facility]) - Final, Complete Discharge Medications Scheduled Azithromycin (Azithromycin) 250 Mg Tablet, 500 MG PO QPM Cholecalciferol (Vitamin D3) (Vitamin D3) 1,000 Unit Tab, 1,000 UNITS PO DAILY, (Reported) Ezetimibe (Zetia) 10 Mg Tab, 10 MG PO QHS, (Reported) Ferrous Sulfate (Ferrous Sulfate) 325 Mg Tablet, 325 MG PO DAILY, (Reported) Glipizide (Glipizide Xl) 5 Mg Tab, 5 MG PO DAILY, (Reported) Levothyroxine Sodium (Levothyroxine Sodium) 75 Mcg Tab, 75 MCG PO DAILY, (Repo rted) Losartan Potassium (Losartan Potassium) 100 Mg Tab, 100 MG PO QHS, (Reported) Metformin HCl (Metformin HCl) 500 Mg Tab, 500 MG PO TID, (Reported) Prednisone (Prednisone) 10 Mg Tablet, 10 MG PO TAPER Take 4 tabs daily x 3 days, then 3 tabs daily x 3 days, then 2 tabs daily x 3 days, then 1 tab daily x 3 days and stop Salmeterol/Fluticasone (Advair 500-50 Diskus) 28 Puff/Inhaler Aerp, 1 PUFF INH BID, (Reported) Simvastatin (Zocor) 80 Mg Tablet, 80 MG PO QHS, (Reported) Theophylline Anhydrous (Theophylline Anhydrous) 300 Mg Tab.er.12h, 300 MG PO BID, (Reported) Tiotropium [place] (Spiriva) 18 Mcg Cap, 1 PUFF INH DAILY, (Reported) Scheduled PRN Albuterol Sulf (Albuterol Sulfate) 2.5 Mg/3 Ml Vial.neb, 2.5 MG INH Q4H PRN for SHORTNESS OF BREATH, (Reported) Albuterol Sulfate (Ventolin Hfa) 108 Mcg/Act Aer, 2 PUFF INH Q4H PRN for SHORTNESS OF BREATH, (Reported) Citalopram Hydrobromide (Citalopram HBr) 20 Mg Tablet, 20 MG PO DAILY PRN for DEPRESSION, (Reported) PATIENT STATES SHE TAKES ONLY WHEN SHE FEELS SHE NEEDS IT. Oxycodone HCl/Acetaminophen (Oxycodone-Acetaminophen 5-325) 1 Each Tablet, 1 TAB PO BID PRN for PAIN, (Reported) Allergies Coded Allergies: Cephalosporins (Verified Allergy, Mild, RASH, 07/17/19) apixaban (Verified Allergy, Mild, RASH, 07/17/19) carisoprodol (Verified Allergy, Mild, RASH, 07/17/19) codeine (Verified Allergy, Mild, RASH, 07/17/19) Sulfa (Sulfonamide Antibiotics) (Verified Allergy, Unknown, UNKNOWN RXN A CHILD, 07/17/19) amoxicillin (Verified Allergy, Unknown, VOMITING, RASH, 07/17/19) AMOXICILLIN, PENICILLIN, AMPICILLIN OK PER PT clavulanic acid (Verified Allergy, Unknown, VOMITING, RASH, 07/17/19) AMOXICILLIN, PENICILLIN, AMPICILLIN OK PER PT CLAUDE TORRES MD Sep 06, 2019 22:07
== END 2019-09-06 11:26 | disposition home health service (06) | DRG 191 ==
LOC: EDBD 11:10 → M ED 11:10 → M ED INP 14:20 → M MSPAV 16:48
PROVIDERS: ADMIT Internal Medicine; ATTEND Internal Medicine Nephrology
DX: J44.1 Chronic obstructive pulmonary disease with (acute) exacerbation (principal); J96.11 Chronic respiratory failure with hypoxia; E03.9 Hypothyroidism, unspecified; I10 Essential (primary) hypertension; G89.29 Other chronic pain; F17.200 Nicotine dependence, unspecified, uncomplicated; R91.8 Other nonspecific abnormal finding of lung field; F32.9 Major depressive disorder, single episode, unspecified; Z86.711 Personal history of pulmonary embolism; E11.9 Type 2 diabetes mellitus without complications; M54.5 Low back pain; F41.9 Anxiety disorder, unspecified; Z79.899 Other long term (current) drug therapy; Z88.2 Allergy status to sulfonamides; Z88.0 Allergy status to penicillin; Z88.8 Allergy status to other drugs, medicaments and biological substances; Z88.5 Allergy status to narcotic agent; Z99.81 Dependence on supplemental oxygen

== ENCOUNTER → 2019-09-18 | Outpatient (REF) | payer MEDICARE, OTHER ==
[~2019-09-18] MED LIST changes: +ASPI81TA85 PO; +AZIT-12 PO; -AZIT500T2 PO; +AZIT500T5 PO; +CITA20TA6 PO; +FERR1TAB8 PO; +LEVO500T3 PO; +LIDO1PAD TOP; +METO1TAB7 PO; +NITR0.4S14 SL; +SPIR-10 PO; +THEO300T12 PO
[2019-09-18 14:44] LABS: BLOOD UREA NITROGEN 12 MG/DL (7-18); CALCIUM LEVEL 8.6 MG/DL (8.8-10.2); CARBON DIOXIDE LEVEL 32 MEQ/L (21-32); CHLORIDE LEVEL 105 MEQ/L (98-107); CREATININE FOR GFR 0.69 MG/DL (0.55-1.30); GLOMERULAR FILTRATION RATE > 60.0 (>39); GLUCOSE, FASTING 132 MG/DL (70-100); NT-PRO BNP 781 PG/ML (<450); POTASSIUM SERUM 3.8 MEQ/L (3.5-5.1); SODIUM LEVEL 142 MEQ/L (136-145); TROPONIN I 0.02 NG/ML (< 0.10)
[2019-09-18 14:51] LABS: CREATININE, URINE 43.6 MG/DL; MALB URINE SIEMENS 41.9 MG/L; MAU/CREAT RATIO 96.1 MCG/MG (0.0-30.0)
== END ==
LOC: M SFHCPLAZ 12:49
PROVIDERS: ATTEND Family Medicine
DX: I16.1 Hypertensive emergency (principal); J44.1 Chronic obstructive pulmonary disease with (acute) exacerbation

== ENCOUNTER 2019-09-20 15:21 | Inpatient (IN) | payer MEDICARE, OTHER ==
[~2019-09-20] VITALS: Ht 157.5 cm; Wt 69.3 kg
[~2019-09-20 15:21] MED LIST changes: -ASPI81TA85 PO; -LEVO500T3 PO; -LIDO1PAD TOP; -METO1TAB7 PO; -NITR0.4S14 SL; -SPIR-10 PO
[2019-09-20] MEDS ORDERED: IPRATROPIUM 0.5MG/ALBUTEROL 2.5MG INH SOL UD 3ML (DUONEB)(J7620) NEB ONE (15:30)
[2019-09-20] MEDS ORDERED: ALBUTEROL SULFATE 2.5 MG/0.5 ML INH NEB SOLN INH ONE (15:30)
[2019-09-20 15:45] LABS: ABG BASE EXCESS -0.1 (-2.0-2.0); ABG O2 SATURATION 98.1 % (95.0-99.0); ABG PARTIAL PRESSURE CO2 37.4 mmHg (35.0-45.0); ABG PARTIAL PRESSURE O2 109.4 mmHg (75.0-100.0); ABG STANDARD HCO3 24.4 MEQ/L (22.0-26.0); ABG TOTAL CO2 25.2 MEQ/L (23.0-31.0); ABG pH (ARTERIAL) 7.426 UNITS (7.350-7.450)
[2019-09-20 15:52] LABS: BASO % 0.2 % (0.0-1.0); HEMATOCRIT 36.7 % (36.0-47.0); HEMOGLOBIN 10.4 g/dl (12.0-15.5); LYMPH % 7.5 % (24.0-44.0); MEAN CORPUSCULAR HEMOGLOBIN 20.5 pg (27.0-33.0); MEAN CORPUSCULAR HGB CONC 28.3 g/dl (32.0-36.5); MEAN CORPUSCULAR VOLUME 72.4 fl (80.0-96.0); MONO # 0.4 10^3/uL (0.0-0.8); MONO % 3.1 % (0.0-5.0); NEUTROPHILS # 11.3 10^3/uL (1.5-8.5); NEUTROPHILS % 88.6 % (36.0-66.0); PLATELET COUNT, AUTOMATED 452 10^3/uL (150-450); RED BLOOD COUNT 5.07 10^6/uL (4.00-5.40); WHITE BLOOD COUNT 12.8 10^3/uL (4.0-10.0)
--- NOTE | 2019-09-20 16:22 | REP ---
PORTABLE CHEST: AP portable view of the chest is performed and compared to prior study of 09/04/2019. There is no change since the prior exam. Increased interstitial markings are stable. No new infiltrate is seen. Heart is normal in size and there is calcification of the thoracic aorta. Mediastinal silhouette is unchanged. IMPRESSION: Stable chronic changes. Electronically Signed by Nestor Deras MD 09/23/2019 10:03 A
[2019-09-20 16:28] LABS: ALBUMIN 3.3 GM/DL (3.2-5.2); ALT/SGPT 17 U/L (12-78); BILIRUBIN,DIRECT < 0.1 MG/DL (0.0-0.2); BILIRUBIN,TOTAL 0.3 MG/DL (0.2-1.0); BLOOD UREA NITROGEN 15 MG/DL (7-18); CALCIUM LEVEL 9.4 MG/DL (8.8-10.2); CARBON DIOXIDE LEVEL 31 MEQ/L (21-32); CHLORIDE LEVEL 104 MEQ/L (98-107); CK-MB VALUE MASS 1.5 NG/ML (<3.6); CPK CREATINE PHOSPHOKINASE 39 U/L (26-192); CREATININE FOR GFR 0.87 MG/DL (0.55-1.30); GLOMERULAR FILTRATION RATE > 60.0 (>39); GLUCOSE, FASTING 291 MG/DL (70-100); MB/CK RELATIVE INDEX 3.85 (< OR =4); NT-PRO BNP 1191 PG/ML (<450); POTASSIUM SERUM 4.7 MEQ/L (3.5-5.1); SODIUM LEVEL 139 MEQ/L (136-145); THYROID STIMULATING HORMONE 0.946 uIU/ML (0.358-3.740); THYROXINE (T4) 10.5 UG/DL (4.5-12.0); TOTAL PROTEIN 6.8 GM/DL (6.4-8.2); TROPONIN I < 0.02 NG/ML (< 0.10)
--- NOTE | 2019-09-20 17:31 | ECGEPIP ---
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
[2019-09-20] MEDS ORDERED: LIDO1PAD TOP (17:58)
[2019-09-20] MEDS ORDERED: SPIR-10 PO (17:58)
[2019-09-20] MEDS ORDERED: METO1TAB7 PO (17:58)
[2019-09-20] MEDS ORDERED: LEVO500T3 PO (17:58)
[2019-09-20] MEDS ORDERED: ASPI81TA85 PO (17:58)
[2019-09-20] MEDS ORDERED: NITR0.4S14 SL (17:58)
[2019-09-20] MEDS ORDERED: PRED20TA PO (18:00)
--- NOTE | 2019-09-20 18:14 | HPEPDOC ---
[facility] Medical History & Physical Date of Admission Sep 20, 2019 Date of Service: Sep 20, 2019 History and Physical CHIEF COMPLAINT: Worsening shortness of breath HISTORY OF PRESENT ILLNESS: Ms. Cai is a 79-year-old female who presents with complaints of shortness of breath for which begun for the last couple of days. She was recently discharged from the hospital because of COPD exacerbation and was sent home on o ral antibiotics and tapering steroids. The patient stated that she has increased shortness of breath with minimal exertion, increased sputum production and increased cough. In the ER. She was very short of breath and for that reason, she was given phfr-dw-xylw duonebs and was put on supplemental oxygen. She was also given high-dose steroid also in the ER. She reported having a fever, chills, poor appetite. She has a chronic cough productive of clear sputum but is producing more sputum than usual; she still smokes. She denies having unilateral leg swelling. She has chronic left lower leg swelling and knee pain. 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 HOME MEDICATIONS: Please see below. PHYSICAL EXAMINATION: VITAL SIGNS: Please see below. GENERAL APPEARANCE: Well-nourished, well-developed, mildly respiratory distress, does not appear toxic or septic HEENT: Normocephalic, atraumatic, mucous members dry, nasal cannula in place, lips acyanotic CARDIOVASCULAR: Regular rate and rhythm, no murmurs, rubs or gallops, radial pulses are intact LUNGS: She is using her accessory muscles, unable to complete a full sentence without having to stop to take a breath, there is expiratory wheezing bilaterally ABDOMEN: Soft and nontender on palpation MUSCULOSKELETAL: There is no calf tenderness EXTREMITIES: Range of motion is intact in all 4 extremities NEUROLOGICAL:. Cranial nerves 2-12 are grossly intact, except for auditory. Speech is not dysarthric PSYCHIATRIC: Alert and oriented person, able to understand and follow commands LABORATORY DATA: See below. MICROBIOLOGY: Please see below. ASSESSMENT: Ms. Cai is a 79-year-old female with a PMH of of COPD, Chronic HTN, recently diagnosed PE (off of apixaban GI bleed) was supposed to see GI doctors but did not follow-up with them, NIDDM, Hypothyroidism, Chronic back and shoulder pain, Dyslipidemia and Hearing loss who will be admitted primarily for management of acute COPD. PLAN: 1. SIRS. SIRS criterial include leukocytosis Lactic acid 2.3 She received levofloxacin in the ED Plan: admit to med/surg with tele, Sepsis protocol w repeat lactic acid /continue the levofloxacin antibiotic day #1/f/u blood cx, UA w Cx and sputum Cx 2. Acute hypercarbic respiratory failure secondary to acute COPD Likely due to smoking versus bronchitis BNP elevation is likely 2/2 acute COPD, Echo in Nov showed normal EF and only G1DD w PASP of 28 and clincally euvolumic ABG was unremarkable Received Solu-Medrol in the ED Plan: f/u ABG in the morning / Dunebs Q6H, Albuterol Q4HP, Solumedrol 60 bid + PPI / Levofloxacin, Tessalon Pearls 3. History of pulmonary embolism patient quit taking apixaban bc of allergy "itchy skin" and GI bleed CTA didn't show acute pulmonary embolism, but she was here last time 4 NIDDM A1c 6.6 in November Plan: f/u accuchecks & A1C / hypoglycemia protocol / sliding scale insulin / hold oral anti-glycemics 5. Uncontrolled Hypertension Likely noncompliance Plan: c/w home meds 6. Hypothyroidism Plan: c/w home meds 7. Tobacco abuse. Plan: Smoking cessation education/the patient denied a nicotine patch DVT prophylaxis heparin Disposition unknown at this time Vital Signs Vital Signs Date Time Temp Pulse Resp B/P (MAP) Pulse Ox O2 Delivery O2 Flow Rate FiO2 09/20/19 16:45 61 24 198/87 (124) 99 Nasal Cannula 2.0 09/20/19 15:35 99.6 Laboratory Data Labs 24H Laboratory Tests 2 09/20/19 15:28: Lactic Acid Level 2.4*H 09/20/19 15:34: Bedside Glucose (Misc Panel) 302H, Blood Gas Bicarbonate Standard 24.4, Arterial Blood pH 7.426, Arterial Blood Partial Pressure CO2 37.4, Arterial Blood Partial Pressure O2 109.4H, Arterial Blood Total CO2 25.2, Arterial Blood HCO3 24.0, Arterial Blood Base Excess -0.1, Arterial Blood Oxygen Saturation 98.1 09/20/19 15:36: Immature Granulocyte % (Auto) 0.6, Neutrophils (%) (Auto) 88.6H, Lymphocytes (%) (Auto) 7.5L, Monocytes (%) (Auto) 3.1, Eosinophils (%) (Auto) 0.0, Basophils (%) (Auto) 0.2, Neutrophils # (Auto) 11.3H, Lymphocytes # (Auto) 1.0L, Monocytes # (Auto) 0.4, Eosinophils # (Auto) 0.0, Basophils # (Auto) 0.0, Nucleated Red Blood Cells % (auto) 0.0, Anion Gap 4L, Glomerular Filtration Rate > 60.0, Calcium Level 9.4, Total Bilirubin 0.3, Direct Bilirubin < 0.1, Aspartate Amino Transf (AST/SGOT) 4L, Alanine Aminotransferase (ALT/SGPT) 17, Alkaline Phosphatase 61, Total Creatine Kinase 39, Creatine Kinase MB 1.5, Creatine Kinase MB Relative Index 3.85, Troponin I < 0.02, ZO-Azb-A-Type Natriuretic Peptide 1191H, Total Protein 6.8, Albumin 3.3, Albumin/Globulin Ratio 0.94L, Thyroid Stimulating Hormone (TSH) 0.946, Thyroxine (T4) 10.5 CBC/BMP Laboratory Tests 09/20/19 15:36 Microbiology Microbiology 09/20/19 Blood Culture, Received Pending 09/20/19 Respiratory Virus Panel (PCR) ([facility]), Received Pending 09/20/19 Blood Culture, Received Pending Home Medications Scheduled Aspirin (Aspir 81) 81 Mg Tablet.dr, 81 MG PO DAILY Cholecalciferol (Vitamin D3) (Vitamin D3) 1,000 Unit Tab, 1,000 UNITS PO DAILY Ezetimibe (Zetia) 10 Mg Tab, 10 MG PO QHS Ferrous Sulfate (Ferrous Sulfate) 325 Mg Tablet, 325 MG PO DAILY Glipizide (Glipizide Xl) 5 Mg Tab, 5 MG PO DAILY Levofloxacin (Levofloxacin) 500 Mg Tablet, 500 MG PO DAILY Levofloxacin (Levofloxacin) 500 Mg Tablet, 500 MG PO DAILY 10 DAYS STARTING ON 09/19 Levothyroxine Sodium (Levothyroxine Sodium) 75 Mcg Tab, 75 MCG PO DAILY USES BRAND SYNTHROID Lidocaine (Lidocaine) 5% Adh..patch, 1 PATCH TOP DAILY ON FOR 12H OFF FOR 12H. APPLY TO UPPER BACK Losartan Potassium (Losartan Potassium) 100 Mg Tab, 100 MG PO QHS Metformin HCl (Metformin HCl) 500 Mg Tab, 500 MG PO TID Metoprolol Succinate (Metoprolol Succinate) 50 Mg Tab.er.24h, 50 MG PO DAILY Prednisone (Prednisone) 20 Mg Tablet, 40 MG PO DAILY 5 DAYS STARTING ON 09/19 Salmeterol/Fluticasone (Advair 500-50 Diskus) 28 Puff/Inhaler Aerp, 1 PUFF INH BID Simvastatin (Zocor) 80 Mg Tablet, 80 MG PO QHS Spironolactone (Spironolactone) 25 Mg Tablet, 25 MG PO DAILY Theophylline Anhydrous (Theophylline Anhydrous) 300 Mg Tab.er.12h, 300 MG PO BID Tiotropium [place] (Spiriva) 18 Mcg Cap, 1 PUFF INH DAILY Scheduled PRN Albuterol Sulf (Albuterol Sulfate) 2.5 Mg/3 Ml Vial.neb, 2.5 MG INH Q4H PRN for SHORTNESS OF BREATH Nitroglycerin (Nitroglycerin) 0.4 Mg Tab.subl, 0.4 MG SL NITRO PRN for CHEST PAIN Oxycodone HCl/Acetaminophen (Oxycodone-Acetaminophen 5-325) 1 Each Tablet, 1 TAB PO BID PRN for PAIN Allergies Coded Allergies: Cephalosporins (Verified Allergy, Mild, RASH, 07/17/19) apixaban (Verified Allergy, Mild, RASH, 07/17/19) carisoprodol (Verified Allergy, Mild, RASH, 07/17/19) codeine (Verified Allergy, Mild, RASH, 07/17/19) Sulfa (Sulfonamide Antibiotics) (Verified Allergy, Unknown, UNKNOWN RXN A CHILD, 07/17/19) amoxicillin (Verified Allergy, Unknown, VOMITING, RASH, 07/17/19) AMOXICILLIN, PENICILLIN, AMPICILLIN OK PER PT clavulanic acid (Verified Allergy, Unknown, VOMITING, RASH, 07/17/19) AMOXICILLIN, PENICILLIN, AMPICILLIN OK PER PT A-FIB/CHADSVASC A-FIB History Current/History of A-Fib/PAF?: No Current PO Anticoag Therapy: No STANISLAV VILLARREAL MD Sep 20, 2019 18:14
[2019-09-20] MEDS ORDERED: IPRATROPIUM 0.5MG/ALBUTEROL 2.5MG INH SOL UD 3ML (DUONEB)(J7620) NEB PRN (18:15)
[2019-09-20] MEDS ORDERED: GLUCOSE 4 GM CHEW TABLET PO PRN (18:30)
[2019-09-20] MEDS ORDERED: MAALOX 30 ML SUSP *UDC PO PRN (18:30)
[2019-09-20] MEDS ORDERED: MOM 30ML SUSPENSION UDC PO PRN (18:30)
[2019-09-20] MEDS ORDERED: ACETAMINOPHEN TAB 650MG DOSE (2X325MG) PO PRN (18:30)
[2019-09-20] MEDS ORDERED: DEXTROSE 50% 50 ML SYRINGE IV PRN (18:30)
[2019-09-20] MEDS ORDERED: GLUCAGON FOR INJ 1 MG VIAL (J1610) SC PRN (18:30)
[2019-09-20] MEDS ORDERED: ALBUTEROL SULFATE 2.5 MG/0.5 ML INH NEB SOLN INH PRN (18:30)
[2019-09-20 20:30] VITALS: BP 135/70
[2019-09-20] MEDS: IPRATROPIUM 0.5MG/ALBUTEROL 2.5MG INH SOL UD 3ML (DUONEB)(J7620) NEB SCH (21:30)
[2019-09-20] MEDS: ADVAIR HFA 230/21MCG INHALER INH SCH (21:30)
[2019-09-20] MEDS: HumaLOG INSULIN (NovoLOG) PER UNIT SC SCH (23:23)
[2019-09-20] MEDS: NS 1,000 ML IV SCH (23:24)
[2019-09-20] MEDS: SIMVASTATIN 40 MG TAB PO SCH (23:24)
[2019-09-20] MEDS: methylPREDNISolone INJ 125 MG/2 ML VIAL (J2930) IV SCH (23:24)
[2019-09-20] MEDS: DOCUSATE SODIUM 100 MG CAP PO SCH (23:24)
[2019-09-20] MEDS: EZETIMIBE 10 MG TAB (ZETIA) PO SCH (23:24)
[2019-09-20] MEDS: LOSARTAN 50 MG TAB PO SCH (23:31)
[2019-09-21 02:00] VITALS: BP 140/80
[2019-09-21] MEDS: IPRATROPIUM 0.5MG/ALBUTEROL 2.5MG INH SOL UD 3ML (DUONEB)(J7620) NEB SCH ×4 (02:53→19:49)
[2019-09-21 06:00] VITALS: BP 130/70
[2019-09-21] MEDS ORDERED: LEVOTHYROXINE 75MCG TABLET (0.075MG) PO SCH (06:00)
[2019-09-21 06:04] LABS: ABG BASE EXCESS 0.3 (-2.0-2.0); ABG HCO3 25.8 MEQ/L (22.0-26.0); ABG O2 SATURATION 97.9 % (95.0-99.0); ABG PARTIAL PRESSURE CO2 45.2 mmHg (35.0-45.0); ABG PARTIAL PRESSURE O2 108.9 mmHg (75.0-100.0); ABG STANDARD HCO3 24.8 MEQ/L (22.0-26.0); ABG TOTAL CO2 27.2 MEQ/L (23.0-31.0); ABG pH (ARTERIAL) 7.374 UNITS (7.350-7.450)
[2019-09-21] MEDS: HEPARIN SOD (PORCINE) 5000 UNITS/ML VIAL SC SCH ×3 (06:09→22:13)
[2019-09-21 06:34] LABS: HEMATOCRIT 35.1 % (36.0-47.0); HEMOGLOBIN 9.9 g/dl (12.0-15.5); MEAN CORPUSCULAR HGB CONC 28.2 g/dl (32.0-36.5); MEAN CORPUSCULAR VOLUME 71.1 fl (80.0-96.0); PLATELET COUNT, AUTOMATED 444 10^3/uL (150-450); RED BLOOD COUNT 4.94 10^6/uL (4.00-5.40); WHITE BLOOD COUNT 11.5 10^3/uL (4.0-10.0)
[2019-09-21 07:09] LABS: ALT/SGPT 16 U/L (12-78); BILIRUBIN,TOTAL 0.5 MG/DL (0.2-1.0); BLOOD UREA NITROGEN 18 MG/DL (7-18); CALCIUM LEVEL 8.5 MG/DL (8.8-10.2); CARBON DIOXIDE LEVEL 29 MEQ/L (21-32); CHLORIDE LEVEL 102 MEQ/L (98-107); CREATININE FOR GFR 0.92 MG/DL (0.55-1.30); GLOMERULAR FILTRATION RATE > 60.0 (>39); GLUCOSE, FASTING 330 MG/DL (70-100); POTASSIUM SERUM 4.5 MEQ/L (3.5-5.1); SODIUM LEVEL 138 MEQ/L (136-145); TOTAL PROTEIN 6.4 GM/DL (6.4-8.2)
[2019-09-21] MEDS: NS 1,000 ML IV SCH (07:50)
[2019-09-21] MEDS: ADVAIR HFA 230/21MCG INHALER INH SCH ×2 (08:02→19:49)
--- NOTE | 2019-09-21 09:43 | REP ---
Two-view chest: 09/21/2019. Indication: Dyspnea. Comparison: Yesterday. Findings: Compared to yesterday, no significant changes are present. Prominent interstitial markings are redemonstrated. There is no pleural effusion or pneumothorax. The cardiomediastinal silhouette is unremarkable. Aortic atherosclerotic disease is present. Impression: Stable chronic interstitial findings without definite air space consolidation/infiltrate. Electronically Signed by Stuart Poon DO 09/21/2019 09:34 A
[2019-09-21] MEDS: ASPIRIN 81 MG ENTERIC TAB PO SCH (10:15)
[2019-09-21] MEDS: methylPREDNISolone INJ 125 MG/2 ML VIAL (J2930) IV SCH ×2 (10:15→22:13)
[2019-09-21] MEDS: SPIRONOLACTONE 25 MG TAB PO SCH (10:16)
[2019-09-21] MEDS: VITAMIN D 1,000 INTERNATIONAL UNITS TABLET PO SCH (10:16)
[2019-09-21] MEDS: DOCUSATE SODIUM 100 MG CAP PO SCH ×2 (10:16→22:12)
[2019-09-21] MEDS: METOPROLOL SUCC (TopROL XL) 50MG **XL** TAB PO SCH (10:18)
[2019-09-21] MEDS: FERROUS SULFATE 325MG TAB PO SCH (10:18)
[2019-09-21] MEDS: LevoFLOXacin IV 500 MG in IV 1 EA IV SCH (10:19)
--- NOTE | 2019-09-21 12:24 | IPNPDOC ---
Text Note Date of Service The patient was seen on 09/21/19. NOTE Patient was seen and examined this morning. States that she feels much better PHYSICAL EXAMINATION: VITAL SIGNS: Please see below. GENERAL APPEARANCE: Well-nourished, well-developed, mildly respiratory distress, does not appear toxic or septic HEENT: Normocephalic, atraumatic, mucous members dry, nasal cannula in place, lips acyanotic CARDIOVASCULAR: Regular rate and rhythm, no murmurs, rubs or gallops, radial pulses are intact LUNGS: She is using her accessory muscles, able to complete a full sentence without having to stop to take a breath, there is expiratory wheezing bilaterally ABDOMEN: Soft and nontender on palpation MUSCULOSKELETAL: There is no calf tenderness EXTREMITIES: Range of motion is intact in all 4 extremities NEUROLOGICAL:. Cranial nerves 2-12 are grossly intact, except for auditory. Speech is not dysarthric PSYCHIATRIC: Alert and oriented person, able to understand and follow commands LABORATORY DATA: See below. MICROBIOLOGY: Please see below. ASSESSMENT: Ms. Cai is a 79-year-old female with a PMH of of COPD, Chronic HTN, recently diagnosed PE (off of apixaban GI bleed) was supposed to see GI doctors but did not follow-up with them, NIDDM, Hypothyroidism, Chronic back and shoulder pain, Dyslipidemia and Hearing loss who will be admitted primarily for management of acute COPD. PLAN: 1. SIRS. SIRS criterial include leukocytosis Lactic acid 2.3 initially, which has resolved now continue the levofloxacin antibiotic day #2 /f/u blood cx, UA w Cx and sputum Cx 2. Acute hypercarbic respiratory failure secondary to acute COPD Likely due to smoking versus bronchitis BNP elevation is likely 2/2 acute COPD, Echo in Nov showed normal EF and only G1DD w PASP of 28 and clincally euvolumic ABG was unremarkable Dunebs Q6H, Albuterol Q4HP, Solumedrol 60 bid and taper as per response + PPI / Levofloxacin, Tessalon Pearls 3. History of pulmonary embolism patient quit taking apixaban bc of allergy "itchy skin" and GI bleed CTA didn't show acute pulmonary embolism, but she was here last time 4 NIDDM A1c 6.6 in November Plan: f/u accuchecks & A1C / hypoglycemia protocol / sliding scale insulin / Levemir 10 twice a day hold oral anti-glycemics 5. Uncontrolled Hypertension Likely noncompliance Plan: c/w home meds 6. Hypothyroidism Plan: c/w home meds 7. Tobacco abuse. Plan: Smoking cessation education/the patient denied a nicotine patch DVT prophylaxis heparin Disposition unknown at this time VS,Fishbone, I+O VS, Fishbone, I+O Laboratory Tests 09/20/19 15:36 09/21/19 06:03 Vital Signs Date Time Temp Pulse Resp B/P (MAP) Pulse Ox O2 Delivery O2 Flow Rate FiO2 09/21/19 10:18 72 169/112 09/21/19 06:00 97.5 15 100 Nasal Cannula 2.0 I&O- Last 24 Hours up to 6 AM 09/21/19 06:00 Intake Total 1138 ml Balance 1138 ml STANISLAV VILLARREAL MD Sep 21, 2019 12:24
[2019-09-21] MEDS: PERCOCET 5MG/325MG TAB PO PRN (12:26)
[2019-09-21] MEDS: LEVEMIR (INSULIN DETEMIR) 1 UNITS/0.01ML SC SCH ×2 (12:26→22:13)
[2019-09-21 14:00] VITALS: BP 135/75
[2019-09-21 22:00] VITALS: BP 130/80
[2019-09-21] MEDS: SIMVASTATIN 40 MG TAB PO SCH (22:11)
[2019-09-21] MEDS: LOSARTAN 50 MG TAB PO SCH (22:11)
[2019-09-21] MEDS: EZETIMIBE 10 MG TAB (ZETIA) PO SCH (22:12)
[2019-09-21] MEDS: HumaLOG INSULIN (NovoLOG) PER UNIT SC SCH (22:13)
[2019-09-22] MEDS: IPRATROPIUM 0.5MG/ALBUTEROL 2.5MG INH SOL UD 3ML (DUONEB)(J7620) NEB SCH ×4 (00:07→20:00)
[2019-09-22] MEDS: HEPARIN SOD (PORCINE) 5000 UNITS/ML VIAL SC SCH ×3 (05:59→20:32)
[2019-09-22] MEDS: LEVOTHYROXINE 25MCG TABLET (0.025MG) PO SCH (05:59)
[2019-09-22 06:00] VITALS: BP 135/80
[2019-09-22] MEDS: ADVAIR HFA 230/21MCG INHALER INH SCH ×2 (07:55→21:40)
[2019-09-22] MEDS: VITAMIN D 1,000 INTERNATIONAL UNITS TABLET PO SCH (09:08)
[2019-09-22] MEDS: ASPIRIN 81 MG ENTERIC TAB PO SCH (09:08)
[2019-09-22] MEDS: DOCUSATE SODIUM 100 MG CAP PO SCH ×2 (09:09→20:32)
[2019-09-22] MEDS: METOPROLOL SUCC (TopROL XL) 50MG **XL** TAB PO SCH (09:09)
[2019-09-22] MEDS: LEVEMIR (INSULIN DETEMIR) 1 UNITS/0.01ML SC SCH ×2 (09:09→20:36)
[2019-09-22] MEDS: SPIRONOLACTONE 25 MG TAB PO SCH (09:09)
[2019-09-22] MEDS: LevoFLOXacin IV 500 MG in IV 1 EA IV SCH (09:09)
[2019-09-22] MEDS: FERROUS SULFATE 325MG TAB PO SCH (09:09)
[2019-09-22] MEDS: methylPREDNISolone INJ 125 MG/2 ML VIAL (J2930) IV SCH (09:09)
[2019-09-22 09:17] LABS: HEMATOCRIT 33.7 % (36.0-47.0); HEMOGLOBIN 9.5 g/dl (12.0-15.5); MEAN CORPUSCULAR HEMOGLOBIN 20.5 pg (27.0-33.0); MEAN CORPUSCULAR HGB CONC 28.2 g/dl (32.0-36.5); MEAN CORPUSCULAR VOLUME 72.6 fl (80.0-96.0); PLATELET COUNT, AUTOMATED 341 10^3/uL (150-450); RED BLOOD COUNT 4.64 10^6/uL (4.00-5.40); WHITE BLOOD COUNT 12.2 10^3/uL (4.0-10.0)
[2019-09-22 09:39] LABS: BLOOD UREA NITROGEN 24 MG/DL (7-18); CALCIUM LEVEL 8.9 MG/DL (8.8-10.2); CARBON DIOXIDE LEVEL 28 MEQ/L (21-32); CHLORIDE LEVEL 105 MEQ/L (98-107); CREATININE FOR GFR 0.86 MG/DL (0.55-1.30); GLOMERULAR FILTRATION RATE > 60.0 (>39); GLUCOSE, FASTING 271 MG/DL (70-100); POTASSIUM SERUM 4.8 MEQ/L (3.5-5.1); SODIUM LEVEL 141 MEQ/L (136-145)
--- NOTE | 2019-09-22 10:28 | IPNPDOC ---
Text Note Date of Service The patient was seen on 09/22/19. NOTE Patient was seen and examined this morning. States that she feels much better PHYSICAL EXAMINATION: VITAL SIGNS: Please see below. GENERAL APPEARANCE: Well-nourished, well-developed, mildly respiratory distress, does not appear toxic or septic HEENT: Normocephalic, atraumatic, mucous members dry, nasal cannula in place, lips acyanotic CARDIOVASCULAR: Regular rate and rhythm, no murmurs, rubs or gallops, radial pulses are intact LUNGS: She is using her accessory muscles, able to complete a full sentence without having to stop to take a breath, there is expiratory wheezing bilaterally ABDOMEN: Soft and nontender on palpation MUSCULOSKELETAL: There is no calf tenderness EXTREMITIES: Range of motion is intact in all 4 extremities NEUROLOGICAL:. Cranial nerves 2-12 are grossly intact, except for auditory. Speech is not dysarthric PSYCHIATRIC: Alert and oriented person, able to understand and follow commands LABORATORY DATA: See below. MICROBIOLOGY: Please see below. ASSESSMENT: Ms. Cai is a 79-year-old female with a PMH of of COPD, Chronic HTN, recently diagnosed PE (off of apixaban GI bleed) was supposed to see GI doctors but did not follow-up with them, NIDDM, Hypothyroidism, Chronic back and shoulder pain, Dyslipidemia and Hearing loss who will be admitted primarily for management of acute COPD. PLAN: 1. SIRS. SIRS criterial include leukocytosis Lactic acid 2.3 initially, which has resolved now continue the levofloxacin antibiotic day #2 /f/u blood cx, UA w Cx and sputum Cx so far negative 2. Hypoxic respiratory failure, now at baseline Likely due to smoking versus bronchitis BNP elevation is likely 2/2 acute COPD, Echo in Nov showed normal EF and only G1DD w PASP of 28 and clincally euvolumic ABG was unremarkable Dunebs Q6H, Albuterol Q4HP, Solumedrol 60 bid and taper as per response + PPI / Levofloxacin, Tessalon Pearls 3. History of pulmonary embolism patient quit taking apixaban bc of allergy "itchy skin" and GI bleed CTA didn't show acute pulmonary embolism, but she was here last time 4 NIDDM A1c 6.6 in November Plan: f/u accuchecks & A1C / hypoglycemia protocol / sliding scale insulin / Levemir 10 twice a day hold oral anti-glycemics 5. Uncontrolled Hypertension Likely noncompliance Plan: c/w home meds 6. Hypothyroidism Plan: c/w home meds 7. Tobacco abuse. Plan: Smoking cessation education/the patient denied a nicotine patch DVT prophylaxis heparin Disposition likely home in the next 24 VS,Fishbone, I+O VS, Fishbone, I+O Laboratory Tests 09/22/19 09:07 Vital Signs Date Time Temp Pulse Resp B/P (MAP) Pulse Ox O2 Delivery O2 Flow Rate FiO2 09/22/19 09:09 63 135/80 09/22/19 06:00 98.1 20 100 Nasal Cannula 2.0 I&O- Last 24 Hours up to 6 AM 09/22/19 05:59 Intake Total 2450 ml Output Total 1850 ml Balance 600 ml STANISLAV VILLARREAL MD Sep 22, 2019 10:28
[2019-09-22] MEDS: PERCOCET 5MG/325MG TAB PO PRN ×2 (10:39→19:54)
[2019-09-22] MEDS: TIOTROPIUM INHALER/CAPSULE (SPIRIVA) INH SCH (12:07)
[2019-09-22 14:00] VITALS: BP 148/50
[2019-09-22] MEDS: EZETIMIBE 10 MG TAB (ZETIA) PO SCH (20:32)
[2019-09-22] MEDS: SIMVASTATIN 40 MG TAB PO SCH (20:35)
[2019-09-22] MEDS: LOSARTAN 50 MG TAB PO SCH (20:35)
[2019-09-22] MEDS: HumaLOG INSULIN (NovoLOG) PER UNIT SC SCH (20:36)
[2019-09-22 22:00] VITALS: BP 140/80
[2019-09-23] MEDS: IPRATROPIUM 0.5MG/ALBUTEROL 2.5MG INH SOL UD 3ML (DUONEB)(J7620) NEB SCH ×3 (01:46→13:20)
[2019-09-23] MEDS: LEVOTHYROXINE 25MCG TABLET (0.025MG) PO SCH (05:54)
[2019-09-23] MEDS: HEPARIN SOD (PORCINE) 5000 UNITS/ML VIAL SC SCH ×2 (05:54→13:56)
[2019-09-23 06:00] VITALS: BP 130/75
[2019-09-23 06:54] LABS: BASO % 0.2 % (0.0-1.0); EOS # 0.1 10^3/uL (0.0-0.5); EOS % 0.5 % (0.0-3.0); HEMATOCRIT 32.7 % (36.0-47.0); HEMOGLOBIN 9.2 g/dl (12.0-15.5); LYMPH # 2.6 10^3/uL (1.5-5.0); LYMPH % 23.9 % (24.0-44.0); MEAN CORPUSCULAR HGB CONC 28.1 g/dl (32.0-36.5); MEAN CORPUSCULAR VOLUME 71.1 fl (80.0-96.0); MONO % 9.3 % (0.0-5.0); NEUTROPHILS # 7.2 10^3/uL (1.5-8.5); NEUTROPHILS % 65.6 % (36.0-66.0); PLATELET COUNT, AUTOMATED 377 10^3/uL (150-450); WHITE BLOOD COUNT 10.9 10^3/uL (4.0-10.0)
[2019-09-23 07:22] LABS: BLOOD UREA NITROGEN 23 MG/DL (7-18); CALCIUM LEVEL 8.6 MG/DL (8.8-10.2); CARBON DIOXIDE LEVEL 30 MEQ/L (21-32); CHLORIDE LEVEL 105 MEQ/L (98-107); GLOMERULAR FILTRATION RATE > 60.0 (>39); GLUCOSE, FASTING 205 MG/DL (70-100); POTASSIUM SERUM 3.8 MEQ/L (3.5-5.1); SODIUM LEVEL 140 MEQ/L (136-145)
[2019-09-23] MEDS: ADVAIR HFA 230/21MCG INHALER INH SCH (08:27)
[2019-09-23] MEDS: TIOTROPIUM INHALER/CAPSULE (SPIRIVA) INH SCH (08:28)
[2019-09-23 08:30] VITALS: BP 130/75
[2019-09-23] MEDS: ASPIRIN 81 MG ENTERIC TAB PO SCH (08:30)
[2019-09-23] MEDS: SPIRONOLACTONE 25 MG TAB PO SCH (08:30)
[2019-09-23] MEDS: LEVEMIR (INSULIN DETEMIR) 1 UNITS/0.01ML SC SCH (08:30)
[2019-09-23] MEDS: methylPREDNISolone INJ 125 MG/2 ML VIAL (J2930) IV SCH (08:30)
[2019-09-23] MEDS: METOPROLOL SUCC (TopROL XL) 50MG **XL** TAB PO SCH (08:30)
[2019-09-23] MEDS: LevoFLOXacin IV 500 MG in IV 1 EA IV SCH (08:31)
[2019-09-23] MEDS: FERROUS SULFATE 325MG TAB PO SCH (08:31)
[2019-09-23] MEDS: DOCUSATE SODIUM 100 MG CAP PO SCH (08:31)
[2019-09-23] MEDS: VITAMIN D 1,000 INTERNATIONAL UNITS TABLET PO SCH (08:32)
--- NOTE | 2019-09-23 11:25 | DS.PDOC ---
Discharge Summary General Date of Admission Sep 20, 2019 at 18:21 Date of Discharge 09/23/19 Discharge Summary CHIEF COMPLAINT: Worsening shortness of breath Final diagnosis Acute exacerbation of COPD Chronic active smoker HISTORY OF PRESENT ILLNESS: Ms. Cai is a 79-year-old female with a PMH of of COPD, Chronic HTN, recently diagnosed PE (off of apixaban GI bleed) was supposed to see GI doctors but did not follow-up with them, NIDDM, Hypothyroidism, Chronic back and shoulder pain, Dyslipidemia and Hearing loss who will be admitted primarily for management of acute COPD. Initially SIRS p[ositive . Initial Lactic acid 2.3 initially, which has resolved now , she was continued on levofloxacin antibiotic for 3 days and completed 7 day course . sputum Cx so far negative. For her Hypoxic respiratory failure, now at baseline Likely due to smoking versus bronchitis , BNP elevation is likely 2/2 acute COPD, Echo in Nov showed normal EF and only G1DD w PASP of 28 and clincally euvolumic , ABG were unremarkable. Will DC steriods today. She has History of pulmonary embolism but patient quit taking apixaban bc of allergy "itchy skin" and GI bleed , CTA didn't show acute pulmonary embolism, but she was here last time. He also has history of type 2 diabetes mellitus with A1c of 6.6. We will continue home medications for diabetes. Continue her antihypertensive medications. She has a history of noncompliance. Has been advised to be compliant with them. The patient is clinically optimize his at her baseline. And will be discharged home PHYSICAL EXAMINATION: VITAL SIGNS: Please see below. GENERAL APPEARANCE: Well-nourished, well-developed HEENT: Normocephalic, atraumatic, mucous members dry, nasal cannula in place, lips acyanotic CARDIOVASCULAR: Regular rate and rhythm, no murmurs, rubs or gallops, radial pulses are intact LUNGS: Clear auscultation bilaterally. No use of accessory muscles ABDOMEN: Soft and nontender on palpation MUSCULOSKELETAL: There is no calf tenderness EXTREMITIES: Range of motion is intact in all 4 extremities NEUROLOGICAL:. Cranial nerves 2-12 are grossly intact, except for auditory. Speech is not dysarthric PSYCHIATRIC: Alert and oriented person, able to understand and follow commands Medications. As per discharge reconciliation medication list Activity as tolerated Diet. 2 g sodium diet Follow-up appointments. PCP in 1 week, pulmonology in 1 week. Condition on discharge. Patient is medically optimized for discharge Discharge disposition: Home Total time spent on this discharge including coordination of care, review of chart documentation and actual contact is around 35 minutes Vital Signs/I&Os Vital Signs Date Time Temp Pulse Resp B/P (MAP) Pulse Ox O2 Delivery O2 Flow Rate FiO2 09/23/19 08:30 62 130/75 09/23/19 06:00 97.5 18 97 Room Air 09/22/19 22:44 1.0 I&O- Last 24 Hours up to 6 AM 09/23/19 06:00 Intake Total 1640 ml Output Total 2300 ml Balance -660 ml Laboratory Data Labs 24H Laboratory Tests 2 09/22/19 11:30: Bedside Glucose (Misc Panel) 353H 09/22/19 16:34: Bedside Glucose (Misc Panel) 367H 09/22/19 20:13: Bedside Glucose (Misc Panel) 349H 09/23/19 05:52: Immature Granulocyte % (Auto) 0.5, Neutrophils (%) (Auto) 65.6, Lymphocytes (%) (Auto) 23.9L, Monocytes (%) (Auto) 9.3H, Eosinophils (%) (Auto) 0.5, Basophils (%) (Auto) 0.2, Neutrophils # (Auto) 7.2, Lymphocytes # (Auto) 2.6, Monocytes # (Auto) 1.0H, Eosinophils # (Auto) 0.1, Basophils # (Auto) 0.0, Nucleated Red Blood Cells % (auto) 0.0, Anion Gap 5L, Glomerular Filtration Rate > 60.0, Calcium Level 8.6L CBC/BMP Laboratory Tests 09/23/19 05:52 FSBS Laboratory Tests Test 09/22/19 11:30 09/22/19 16:34 09/22/19 20:13 Range/Units Bedside Glucose (Misc Panel) 353 367 349 83-110 MG/DL Microbiology Microbiology 09/20/19 Gram Stain - Final, Complete 09/20/19 Sputum Culture - Final, Complete Strep Agalactiae Group B 09/20/19 Blood Culture - Preliminary, Resulted No Growth after 48 hours. All Specime... 09/20/19 Respiratory Virus Panel (PCR) ([facility]) - Final, Complete 09/20/19 Blood Culture - Preliminary, Resulted No Growth after 48 hours. All Specime... Discharge Medications Scheduled Aspirin (Aspir 81) 81 Mg Tablet.dr, 81 MG PO DAILY, (Reported) Cholecalciferol (Vitamin D3) (Vitamin D3) 1,000 Unit Tab, 1,000 UNITS PO DAILY, (Reported) Ezetimibe (Zetia) 10 Mg Tab, 10 MG PO QHS, (Reported) Ferrous Sulfate (Ferrous Sulfate) 325 Mg Tablet, 325 MG PO DAILY, (Reported) Glipizide (Glipizide Xl) 5 Mg Tab, 5 MG PO DAILY, (Reported) Levothyroxine Sodium (Levothyroxine Sodium) 75 Mcg Tab, 75 MCG PO DAILY, (Reported) USES BRAND SYNTHROID Lidocaine (Lidocaine) 5% Adh..patch, 1 PATCH TOP DAILY, (Reported) ON FOR 12H OFF FOR 12H. APPLY TO UPPER BACK Losartan Potassium (Losartan Potassium) 100 Mg Tab, 100 MG PO QHS, (Reported) Metformin HCl (Metformin HCl) 500 Mg Tab, 500 MG PO TID, (Reported) Metoprolol Succinate (Metoprolol Succinate) 50 Mg Tab.er.24h, 50 MG PO DAILY, (Reported) Salmeterol/Fluticasone (Advair 500-50 Diskus) 28 Puff/Inhaler Aerp, 1 PUFF INH BID, (Reported) Simvastatin (Zocor) 80 Mg Tablet, 80 MG PO QHS, (Reported) Spironolactone (Spironolactone) 25 Mg Tablet, 25 MG PO DAILY, (Reported) Theophylline Anhydrous (Theophylline Anhydrous) 300 Mg Tab.er.12h, 300 MG PO BID, (Reported) Tiotropium [place] (Spiriva) 18 Mcg Cap, 1 PUFF INH DAILY, (Reported) Scheduled PRN Albuterol Sulf (Albuterol Sulfate) 2.5 Mg/3 Ml Vial.neb, 2.5 MG INH Q4H PRN for SHORTNESS OF BREATH, (Reported) Nitroglycerin (Nitroglycerin) 0.4 Mg Tab.subl, 0.4 MG SL NITRO PRN for CHEST PAIN, (Reported) Oxycodone HCl/Acetaminophen (Oxycodone-Acetaminophen 5-325) 1 Each Tablet, 1 TAB PO BID PRN for PAIN, (Reported) Allergies Coded Allergies: Cephalosporins (Verified Allergy, Mild, RASH, 07/17/19) apixaban (Verified Allergy, Mild, RASH, 07/17/19) carisoprodol (Verified Allergy, Mild, RASH, 07/17/19) codeine (Verified Allergy, Mild, RASH, 07/17/19) Sulfa (Sulfonamide Antibiotics) (Verified Allergy, Unknown, UNKNOWN RXN A CHILD, 07/17/19) amoxicillin (Verified Allergy, Unknown, VOMITING, RASH, 07/17/19) AMOXICILLIN, PENICILLIN, AMPICILLIN OK PER PT clavulanic acid (Verified Allergy, Unknown, VOMITING, RASH, 07/17/19) AMOXICILLIN, PENICILLIN, AMPICILLIN OK PER PT STANISLAV VILLARREAL MD Sep 23, 2019 11:24
== END 2019-09-23 14:40 | disposition home health service (06) | DRG 190 ==
LOC: M ED 15:21 → EDBD 15:21 → M ED INP 18:21 → M MSPAV 20:30
PROVIDERS: ADMIT Internal Medicine; ATTEND Internal Medicine
DX: J44.1 Chronic obstructive pulmonary disease with (acute) exacerbation (principal); J96.02 Acute respiratory failure with hypercapnia; I10 Essential (primary) hypertension; F17.200 Nicotine dependence, unspecified, uncomplicated; E03.9 Hypothyroidism, unspecified; E11.9 Type 2 diabetes mellitus without complications; Z86.711 Personal history of pulmonary embolism; Z91.14 Patient's other noncompliance with medication regimen; Z79.82 Long term (current) use of aspirin; Z79.899 Other long term (current) drug therapy; Z88.5 Allergy status to narcotic agent; Z88.2 Allergy status to sulfonamides; Z88.8 Allergy status to other drugs, medicaments and biological substances; M81.0 Age-related osteoporosis without current pathological fracture; E78.5 Hyperlipidemia, unspecified

== ENCOUNTER → 2019-10-13 | Outpatient (CLI) | payer MEDICARE, OTHER ==
[~2019-10-13] MED LIST changes: +ASPI81TA85 PO; +LEVO500T3 PO; +LIDO1PAD TOP; +METO1TAB7 PO; +NITR0.4S14 SL; +SPIR-10 PO
== END ==
LOC: M LAB 16:13
PROVIDERS: ATTEND Internal Medicine Pulmonary Disease
DX: J44.9 Chronic obstructive pulmonary disease, unspecified (principal)

== ENCOUNTER → 2019-12-08 | Outpatient (CLI) | payer MEDICARE, OTHER ==
[2019-12-08 16:28] LABS: BASO # 0.1 10^3/uL (0.0-0.2); BASO % 0.7 % (0.0-1.0); EOS # 0.3 10^3/uL (0.0-0.5); EOS % 1.8 % (0.0-3.0); HEMATOCRIT 42.9 % (36.0-47.0); HEMOGLOBIN 11.9 g/dl (12.0-15.5); LYMPH % 20.8 % (24.0-44.0); MEAN CORPUSCULAR HEMOGLOBIN 21.1 pg (27.0-33.0); MEAN CORPUSCULAR HGB CONC 27.7 g/dl (32.0-36.5); MEAN CORPUSCULAR VOLUME 76.1 fl (80.0-96.0); MONO # 1.2 10^3/uL (0.0-0.8); MONO % 8.5 % (0.0-5.0); NEUTROPHILS # 9.6 10^3/uL (1.5-8.5); NEUTROPHILS % 67.6 % (36.0-66.0); PLATELET COUNT, AUTOMATED 542 10^3/uL (150-450); RED BLOOD COUNT 5.64 10^6/uL (4.00-5.40); WHITE BLOOD COUNT 14.2 10^3/uL (4.0-10.0)
[2019-12-08 16:51] LABS: BLOOD UREA NITROGEN 9 MG/DL (7-18); CALCIUM LEVEL 9.5 MG/DL (8.8-10.2); CARBON DIOXIDE LEVEL 28 MEQ/L (21-32); CHLORIDE LEVEL 102 MEQ/L (98-107); CREATININE FOR GFR 0.82 MG/DL (0.55-1.30); FERRITIN 4 NG/ML (8-252); GLOMERULAR FILTRATION RATE > 60.0 (>39); GLUCOSE, FASTING 128 MG/DL (70-100); IRON (FE) 27 UG/DL (50-170); PERCENT SATURATION 5.8 % (13.2-45.0); POTASSIUM SERUM 4.3 MEQ/L (3.5-5.1); SODIUM LEVEL 139 MEQ/L (136-145); TOTAL IRON BINDING CAPACITY 467 UG/DL (250-450)
== END ==
LOC: M LAB 15:47
DX: E11.9 Type 2 diabetes mellitus without complications (principal); Z87.19 Personal history of other diseases of the digestive system; J44.9 Chronic obstructive pulmonary disease, unspecified; J96.11 Chronic respiratory failure with hypoxia

== ENCOUNTER → 2019-12-08 | Outpatient (CLI) | payer MEDICARE, OTHER | LOC: M LAB 15:51 | PROVIDERS: ATTEND Internal Medicine Pulmonary Disease | DX: J44.9 Chronic obstructive pulmonary disease, unspecified (principal); J96.11 Chronic respiratory failure with hypoxia ==

== ENCOUNTER 2020-01-17 20:00 | Inpatient (IN) | payer MEDICARE, OTHER ==
[~2020-01-17] VITALS: Ht 157.5 cm; Wt 66.1 kg
[2020-01-17 20:32] LABS: BASO # 0.1 10^3/uL (0.0-0.2); BASO % 0.7 % (0.0-1.0); EOS # 0.2 10^3/uL (0.0-0.5); EOS % 1.8 % (0.0-3.0); HEMATOCRIT 42.4 % (36.0-47.0); HEMOGLOBIN 12.6 g/dl (12.0-15.5); LYMPH # 3.4 10^3/uL (1.5-5.0); LYMPH % 24.7 % (24.0-44.0); MEAN CORPUSCULAR HEMOGLOBIN 22.3 pg (27.0-33.0); MEAN CORPUSCULAR HGB CONC 29.7 g/dl (32.0-36.5); MONO # 1.2 10^3/uL (0.0-0.8); MONO % 8.5 % (0.0-5.0); NEUTROPHILS # 8.8 10^3/uL (1.5-8.5); PLATELET COUNT, AUTOMATED 445 10^3/uL (150-450); RED BLOOD COUNT 5.65 10^6/uL (4.00-5.40); WHITE BLOOD COUNT 13.7 10^3/uL (4.0-10.0)
--- NOTE | 2020-01-17 20:52 | ECGEPIP ---
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
[2020-01-17 20:56] LABS: ABG HCO3 23.5 MEQ/L (22.0-26.0); ABG O2 SATURATION 98.8 % (95.0-99.0); ABG PARTIAL PRESSURE CO2 43.1 mmHg (35.0-45.0); ABG PARTIAL PRESSURE O2 145.3 mmHg (75.0-100.0); ABG STANDARD HCO3 22.8 MEQ/L (22.0-26.0); ABG TOTAL CO2 24.9 MEQ/L (23.0-31.0); ABG pH (ARTERIAL) 7.355 UNITS (7.350-7.450)
[2020-01-17 20:58] LABS: BLOOD UREA NITROGEN 13 MG/DL (7-18); CARBON DIOXIDE LEVEL 26 MEQ/L (21-32); CHLORIDE LEVEL 104 MEQ/L (98-107); CK-MB VALUE MASS 1.1 NG/ML (<3.6); CPK CREATINE PHOSPHOKINASE 53 U/L (26-192); CREATININE FOR GFR 0.87 MG/DL (0.55-1.30); GLOMERULAR FILTRATION RATE > 60.0 (>39); GLUCOSE, FASTING 241 MG/DL (70-100); MB/CK RELATIVE INDEX 2.08 (< OR =4); POTASSIUM SERUM 4.4 MEQ/L (3.5-5.1); SODIUM LEVEL 138 MEQ/L (136-145); TROPONIN I < 0.02 NG/ML (< 0.10)
[2020-01-17] MEDS: HumaLOG INSULIN (NovoLOG) PER UNIT SC SCH (21:00)
[2020-01-17] MEDS: **NOTE PATIENT COMMENT** MISC XX SCH (21:00)
[2020-01-17] MEDS ORDERED: dexameTHASONE 20 MG/5 ML VIAL (J1100) IV ONE (21:45)
[2020-01-17] MEDS: IPRATROPIUM 0.5MG/ALBUTEROL 2.5MG INH SOL UD 3ML (DUONEB)(J7620) NEB SCH ×3 (22:10→22:27)
[2020-01-17 23:07] LABS: INFLUENZA A AMPLIFICATION NEGATIVE (NEGATIVE); INFLUENZA B AMPLIFICATION NEGATIVE (NEGATIVE)
[2020-01-17] MEDS ORDERED: ISOVUE-370 76% 100ML VIAL (Q9967) As Ordered ONE (23:19)
[2020-01-17] MEDS ORDERED: GLUCOSE 4 GM CHEW TABLET PO PRN (23:30)
[2020-01-17] MEDS ORDERED: LEVALBUTEROL 1.25 MG/0.5 ML CONCENTRATE NEB NEB PRN (23:30)
[2020-01-17] MEDS ORDERED: GLUCAGON FOR INJ 1 MG VIAL (J1610) SC PRN (23:30)
[2020-01-17] MEDS ORDERED: DEXTROSE 50% 50 ML SYRINGE IV PRN (23:30)
[2020-01-18] VITALS (8 sets, daily range): BP systolic 129–220; BP diastolic 40–98; O2SAT 93
[2020-01-18] MEDS ORDERED: PERCOCET 5MG/325MG TAB PO ONE (00:15)
[2020-01-18] MEDS ORDERED: KETOROLAC 30 MG/ML VIAL (J1885) IV ONE (00:15)
[2020-01-18] MEDS ORDERED: NS 1,000 ML IV SCH (00:15)
--- NOTE | 2020-01-18 00:16 | REPVR ---
PROCEDURE INFORMATION: Exam: CT Angiography Chest With Contrast Exam date and time: 01/17/2020 11:13 PM Age: 79 years old Clinical indication: Shortness of breath; Left-sided chest pain; Additional info: Dysp/l cp/prior pe TECHNIQUE: Imaging protocol: Computed tomographic angiography of the chest with intravenous contrast. 3D rendering: MIP and/or 3D reconstructed images were created by the technologist. Radiation optimization: All CT scans at this facility use at least one of these dose optimization techniques: automated exposure control; mA and/or kV adjustment per patient size (includes targeted exams where dose is matched to clinical indication); or iterative reconstruction. Contrast material: ISO; Contrast volume: 75 ml; Contrast route: AC; COMPARISON: CT ANGIO CHEST 07/16/2019 11:06 PM FINDINGS: Pulmonary arteries: The main pulmonary artery measures 22 mm. No pulmonary embolism is identified. Aorta: The ascending thoracic aorta measures 31 mm. 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 Lungs: Mild scattered interstitial coarsening with minimal bullous change. There is minimal patchy infiltrate in the lingula and left upper lobe and to a lesser degree anterior right middle lobe. There is minimal left upper lobe scar with some cicatrization which is unchanged. Pleural space: Unremarkable. No pneumothorax. No pleural effusion. Heart: Unremarkable. No cardiomegaly. No pericardial effusion. Adrenals: Right adrenal nodule measuring 2.4 x 1.6 x 2.5 cm with a Hounsfield measurement of 3. Lymph nodes: Mediastinal nodes which are within normal limits. Bones/joints: Unremarkable. No acute fracture. Soft tissues: Unremarkable. Other findings: Mild anterior wedge configuration of T4 which appears to be chronic and remains unchanged. IMPRESSION: 1. Interstitial coarsening with minimal bullous change and minimal patchy infiltrates or atelectasis in the left upper lobe and lingula and right middle lobe which is similar overall since 07/16/2019. 2. 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 3. Right adrenal nodule measuring 2.4 x 1.6 x 2.5 cm. 4. No interval pulmonary embolism is identified. Electronically signed by: Phillip Chen On 01/18/2020 00:15:48 AM
[2020-01-18] MEDS ORDERED: GLIP5TAB20 PO (00:18)
[2020-01-18] MEDS ORDERED: VITAD1000T PO (00:18)
[2020-01-18] MEDS ORDERED: METF-791 PO (00:18)
[2020-01-18] MEDS ORDERED: VENTAER INH (00:19)
[2020-01-18] MEDS: LEVALBUTEROL 1.25 MG/0.5 ML CONCENTRATE NEB NEB SCH ×6 (00:42→19:34)
[2020-01-18] MEDS ORDERED: HumaLOG INSULIN (NovoLOG) PER UNIT SC ONE (01:30)
[2020-01-18] MEDS ORDERED: methylPREDNISolone INJ 125 MG/2 ML VIAL (J2930) IV SCH (06:00)
[2020-01-18 06:14] LABS: HEMATOCRIT 40.7 % (36.0-47.0); MEAN CORPUSCULAR HEMOGLOBIN 22.4 pg (27.0-33.0); MEAN CORPUSCULAR HGB CONC 29.5 g/dl (32.0-36.5); MEAN CORPUSCULAR VOLUME 75.9 fl (80.0-96.0); PLATELET COUNT, AUTOMATED 418 10^3/uL (150-450); RED BLOOD COUNT 5.36 10^6/uL (4.00-5.40); WHITE BLOOD COUNT 11.1 10^3/uL (4.0-10.0)
[2020-01-18 06:33] LABS: CALCIUM LEVEL 8.7 MG/DL (8.8-10.2); CREATININE FOR GFR 1.29 MG/DL (0.55-1.30); GLOMERULAR FILTRATION RATE 42.7 (>39); POTASSIUM SERUM 4.4 MEQ/L (3.5-5.1)
--- NOTE | 2020-01-18 07:53 | REP ---
Chest x-ray: Two views. History: Dyspnea and cough. Comparison chest x-ray September 21, 2019. Findings: EKG monitoring electrodes and oxygen delivery tubing are seen. The lungs are well inflated and free of infiltrate. The pleural angles are sharp. Pulmonary vasculature is not increased. Heart size is borderline unchanged. No significant bony abnormality is seen. Impression: No acute disease. Electronically Signed by Guerrero Guerrero MD 01/18/2020 07:45 A
[2020-01-18] MEDS: LIDOCAINE 5% (LIDODERM) PATCH TD SCH (10:04)
[2020-01-18] MEDS: HumaLOG INSULIN (NovoLOG) PER UNIT SC SCH ×4 (10:04→21:00)
--- NOTE | 2020-01-18 11:01 | HPE ---
DATE OF ADMISSION: 01/17/2020 CHIEF COMPLAINT: Pleuritic chest pain, shortness of breath, pain in left shoulder and back. HISTORY OF PRESENTING ILLNESS: This is a 79-year-old female with history of chronic obstructive pulmonary disease (COPD), on home oxygen 2 liters, pulmonary embolism (PE) diagnosed June 2018, osteoporosis, chronic hypertension, chronic back and shoulder pain, presents to emergency room with pleuritic chest pain for the past 3 days, as well as pain behind the left shoulder, worsened when she takes a deep breath described as sharp and 10/10 on and off, lasts for about 1-2 hours, better when she takes her Percocet which calms it down to about a 3/10 but persistent. The patient has had worsening shortness of breath with cough productive of thick white sputum, recently turned yellow-green today, with decrease in ambulation due to dyspnea on exertion. The patient usually ambulates around the house okay, but for the past 3 days the patient has worsening shortness of breath when she even attempts to get up. No weight changes. Usually, weighs around 147 pounds, per the family. She has had decrease in appetite. She also complains of left lower quadrant flank pain without dysuria, urgency, frequency, fever, chills, or hematuria. In the emergency room (ER), she was found to be afebrile, wheezing with diminished breath sounds. CT chest is pending to rule out pulmonary embolism. Chest x-ray had no pneumonia, effusion. White count was elevated at 13,000. The patient has significant improvement with Solu-Medrol nebulizer treatment. Cardiac marker was negative with troponin less than 0.02, and electrocardiogram (EKG) had no acute ischemia. She had lactic acid slight elevation 2.1, as well as A and B are negative. Respiratory panel is pending. Blood culture is pending. Urinalysis ordered. Hospitalist was called to admit for COPD exacerbation. The patient otherwise denies any fevers, headaches, changes in vision, ear pain, nasal congestion, sore throat, palpitations, lightheadedness, dizziness, nausea, vomiting, constipation, upper and lower extremity weakness, muscle pains, joint pains, polyphagia, polyuria, polydipsia. PAST MEDICAL HISTORY: PE diagnosed June 2018. COPD. Chronic hypertension. Noninsulin-dependent diabetes. Hypothyroidism. Chronic back and shoulder pain. Osteoporosis. Hearing loss. Dyslipidemia. T4 wedge compression fracture on CT of the chest. PAST SURGICAL HISTORY: Partial thyroidectomy. Tonsillectomy. Umbilical hernia repair. Bilateral cataract removal. FAMILY HISTORY: Mother heart disease and hypertension. Father diabetes. Brother and sisters with lung cancer. SOCIAL HISTORY: One pack a day cigarette use. Lives with daughter and granddaughter. ALLERGIES: CEPHALOSPORIN, SULFA, APIXABAN, CARISOPRODOL, CLAVULANIC ACID, CODEINE. HOME MEDICATIONS: - albuterol 2.5 every 4 as needed - aspirin 81 daily - vitamin D 1000 units daily - Zetia 10 nightly - ferrous sulfate 325 daily - glipizide 5 mg daily - Synthroid 75 mcg daily - lidocaine patch daily - losartan 100 mg nightly - metformin 500 three times a day - metoprolol 50 daily - nitroglycerin as needed - Percocet one tablet twice a day as needed for pain - Advair 500/50 one puff twice a day - Zocor 80 nightly - spironolactone 25 daily - Spiriva one puff daily - theophylline 300 twice a day REVIEW OF SYSTEMS: Per history of present illness (HPI), twelve-point system. PHYSICAL EXAMINATION: Temperature 96.8, pulse 95, respiratory rate 24-36, blood pressure 155/67, 97% on 2 liters nasal cannula. Generally, the patient is awake, alert, oriented times three. Mild respiratory distress. Able to speak in full sentences but with mild use of respiratory accessory muscles. Tongue is midline. No jugular venous distention (JVD). No thyromegaly. No jugular venous distention. LUNGS: Diminished bilateral expiratory wheezing. HEART: S1, S2, sinus rhythm. ABDOMEN: Is soft, nontender, nondistended. No costovertebral angle (CVA) tenderness. EXTREMITIES: No cyanosis, clubbing, or pitting edema. Left shoulder range of motion limited due to pain on extension and abduction. LABORATORY DATA: White count 13.7, hemoglobin 12, hematocrit 42, platelet count 445. pH 7.355, CO2 43, pO2 145, bicarbonate 23. Sodium 138, potassium 4.4, chloride 104, bicarbonate 26, BUN 13, creatinine 0.87, glucose 241, lactic acid 2.1, calcium 9, total CK 53, MB fraction 1.1, relative index 2.08, troponin less than 0.02. Influenza A and B are negative. Respiratory panel pending. Blood culture pending. Urinalysis (UA) pending. CT chest pending report. ASSESSMENT AND PLAN: A 79-year-old female with history of chronic obstructive pulmonary disease, recent pulmonary embolism (PE), off anticoagulation due to recent gastrointestinal (GI) bleed, hypothyroidism, diabetes, chronic back pain, shoulder pain, dyslipidemia, and hearing loss admitted due to 3-4 day history of pleuritic chest pain. rule out PE with known history of COPD and acute wheezing on examination. CURRENT ISSUES: 1. Chronic obstructive pulmonary disease exacerbation. The patient had bilateral wheezing, diminished breath sounds, some mild use of respiratory accessory muscles. Arterial blood gas (ABG) appears to be within normal. Chest x-ray had no acute infiltrate. The patient will be given intravenous steroids every 6-8 hours, nebulizer treatments every 4 hours. Await respiratory panel and CT chest. 2. Pleuritic chest pain. Check CT chest. Rule out PE. The patient did not followup with her GI physicians after a GI bleed when the patient was put on apixaban. 3. Flank pain. Check UA, urine culture and sensitivity (C and S). 4. History of osteoporosis with history of T4 compression fracture. Pain medications, Percocet one tablet twice a day as needed. 5. History of pulmonary embolism with complaints of pleuritic chest pain, tachycardia, and tachypnea. CT chest has been obtained. 6. Chronic hypertension. Resume home medications. May resume home dose of losartan. Monitor with serial creatinine in light of recent contrast study, to monitor for acute kidney injury. 7. Type 2 diabetes. Sliding scale. Consistent-carbohydrate diet. Hold off on oral hypoglycemics during hospital stay. Monitor for steroid-induced hyperglycemia. 8. Hypothyroidism. Continue on home dose of Synthroid. Thyroid-stimulating hormone (TSH) in the morning. 9. Osteoporosis. On supplemental vitamin D. 10. Deep venous thrombosis (DVT) prophylaxis. On compression stockings. MTDD
[2020-01-18] MEDS ORDERED: HumuLIN R (REGULAR) INSULIN (NovoLIN R) **100U/ML** PER UNIT IV STA (17:49)
[2020-01-18] MEDS: ACETAMINOPHEN TAB 650MG DOSE (2X325MG) PO PRN (18:35)
--- NOTE | 2020-01-18 18:49 | IPNPDOC ---
Date Seen The patient was seen on 01/18/20. Progress Note SUBJECTIVE: 79-year-old female with past medical history of COPD on home oxygen, diabetes mellitus, hypertension and hypothyroidism was admitted for COPD exacerbation. Patient seen in the morning, reports slight improvement in dyspnea and cough. Patient is down to her baseline oxygen of 2 L/m. Patient reports progressive worsening over the past few weeks, also reports pleuritic chest/back pain with coughing. She has no additional complaints at this time, denies any headache, nausea, vomiting, abdominal pain or diarrhea. 10 point review of system is negative except for above PHYSICAL EXAMINATION: VITAL SIGNS: Please see below. GENERAL: No distress HEENT: Normocephalic, atraumatic, moist mucous membranes NECK: Supple CARDIOVASCULAR EXAMINATION: S1, S2, no murmurs RESPIRATORY EXAMINATION: Diminished, poor air movement, scattered rhonchi and wheezing appreciated ABDOMINAL EXAMINATION: Soft, nontender, nondistended, positive bowel sounds EXTREMITIES: Range of motion intact SKIN: No rash NEUROLOGICAL EXAMINATION: Alert and oriented 3, no focal deficits PSYCHIATRIC EXAMINATION: Calm and cooperative LABORATORY DATA, IMAGING STUDIES, MICROBIOLOGY: Please see below. ASSESSMENT AND PLAN: 79-year-old female with past medical history of COPD on home oxygen, hypertension, diabetes mellitus and hypothyroidism was admitted for COPD exacerbation. PROBLEMS: 1. COPD exacerbation: Switch Solu-Medrol to prednisone 60 mg daily, will titrate, DuoNeb every 6 hours, continue supplemental oxygen as needed to maintain O2 sats between 88-92%. 2.Diabetes mellitus: Glucose poorly controlled due to steroids, required 1 dose of IV insulin, continue sinus scale insulin coverage with meals and at bedtime. 3. Hypertension: Continue losartan and metoprolol. 4. Hypothyroidism: Continue levothyroxine DVT prophylaxis: Heparin subcutaneous. GI prophylaxis: Not needed VS, I&O, 24H, [place] Vital Signs/I&O Vital Signs Date Time Temp Pulse Resp B/P (MAP) Pulse Ox O2 Delivery O2 Flow Rate FiO2 01/18/20 15:54 93 Room Air 01/18/20 14:00 97.8 101 19 130/75 (93) 2.0 I&O- Last 24 Hours up to 6 AM 01/18/20 06:00 Intake Total 120 ml Output Total 300 ml Balance -180 ml Laboratory Data 24H LABS Laboratory Tests 2 01/17/20 20:14: Immature Granulocyte % (Auto) 0.3, Neutrophils (%) (Auto) 64.0, Lymphocytes (%) (Auto) 24.7, Monocytes (%) (Auto) 8.5H, Eosinophils (%) (Auto) 1.8, Basophils (%) (Auto) 0.7, Neutrophils # (Auto) 8.8H, Lymphocytes # (Auto) 3.4, Monocytes # (Auto) 1.2H, Eosinophils # (Auto) 0.2, Basophils # (Auto) 0.1, Nucleated Red Blood Cells % (auto) 0.0, Lactic Acid Level 2.1*H 01/17/20 20:20: Influenza Type A (RT-PCR) NEGATIVE, Influenza Type B (RT-PCR) NEGATIVE 01/17/20 20:47: Blood Gas Bicarbonate Standard 22.8, Arterial Blood pH 7.355, Arterial Blood Partial Pressure CO2 43.1, Arterial Blood Partial Pressure O2 145.3H, Arterial Blood Total CO2 24.9, Arterial Blood HCO3 23.5, Arterial Blood Base Excess -2.0, Arterial Blood Oxygen Saturation 98.8 01/17/20 21:00: Anion Gap 8, Glomerular Filtration Rate > 60.0, Calcium Level 9.0, Total C reatine Kinase 53, Creatine Kinase MB 1.1, Creatine Kinase MB Relative Index 2.08, Troponin I < 0.02 01/18/20 00:47: Lactic Acid Followup at 4 Hours 1.9 01/18/20 01:17: Bedside Glucose (Misc Panel) 476H 01/18/20 05:57: Nucleated Red Blood Cells % (auto) 0.0, Anion Gap 9, Glomerular Filtration Rate 42.7, Calcium Level 8.7L 01/18/20 10:16: Methicillin-Resist S.aureus DNA PCR NOT DETECTED 01/18/20 11:37: Bedside Glucose (Misc Panel) 483H 01/18/20 17:03: Bedside Glucose (Misc Panel) 550*H 01/18/20 17:21: Bedside Glucose Confirm (Misc) 368H CBC/BMP Laboratory Tests 01/17/20 20:14 01/17/20 21:00 01/18/20 05:57 Microbiology Microbiology 01/17/20 Respiratory Virus Panel (PCR) ([facility]) - Final, Complete 01/17/20 Blood Culture, Received Pending RUI HOLLIS MD Jan 18, 2020 18:49
[2020-01-18] MEDS: IPRATROPIUM 0.5MG/ALBUTEROL 2.5MG INH SOL UD 3ML (DUONEB)(J7620) NEB SCH (20:00)
[2020-01-18] MEDS ORDERED: MORPHINE 2 MG/ML 1ML VIAL (J2270) As Ordered ONE (20:21)
[2020-01-18] MEDS ORDERED: LABETALOL HCL 100 MG/20 ML VIAL As Ordered ONE (20:23)
[2020-01-18] MEDS: SIMVASTATIN 40 MG TAB PO SCH (20:23)
[2020-01-18] MEDS ORDERED: NITROGLYCERIN 0.4 MG SUBL TABLET As Ordered ONE (20:26)
[2020-01-18] MEDS ORDERED: ASPIRIN 81 MG CHEW TABLET PO ONE (20:30)
[2020-01-18] MEDS ORDERED: NITROGLYCERIN 0.4 MG SUBL TABLET SL PRN ×2 (20:30)
[2020-01-18] MEDS: EZETIMIBE 10 MG TAB (ZETIA) PO SCH (20:45)
[2020-01-18] MEDS: HEPARIN SOD (PORCINE) 5000 UNITS/ML VIAL (J1644 PER 1000UNITS) SQ SCH (20:45)
[2020-01-18] MEDS: LOSARTAN 50 MG TAB PO SCH (20:45)
[2020-01-18] MEDS ORDERED: LABETALOL HCL 100 MG/20 ML VIAL IV STA (20:55)
--- NOTE | 2020-01-18 20:55 | IPNPDOC ---
Text Note Date of Service The patient was seen on 01/18/20. NOTE S: I was called urgently to evaluate the patient with 5-6/10 substernal chest pain. The patient does have an extensive history and related that her mother of a heart attack. The patient is a DNR/DNI, does not wish to be transferred. She is amenable to medical management. O: Vitals: BP 210/78, RR 30, HR 105, 95% 3L General: Elderly female with conversational dyspnea, tripod-ing and speaking in 5-6 word sentences Lungs: diffusely wheezy, no rhonchi Heart: Tachycardic, no overt murmurs or rubs A/P: I personally pushed 10mg IV Labetalol, and we gave 324 mg of chewable aspirin, 2 mg IV morphine, and 0.4 mg Nitroglycerin SL. She was also given her scheduled night time simvastatin 80 mg. EKG shows Sinus tachycardia at 92 bpm; no overt ST elevation or depression, no significant T wave changes from 01/17/2020. Repeat BP: 180/70 and repeat HR [address] patient on Telemetry, with IV morphine on stand by and NTG ordered. Patient to be given Plavix 150 mg. I am to be notified if her heart rate falls below 60, or if her BP is >160. If Troponins are elevated, will place patient on heparin drip. VS,Fishbone, I+O VS, Fishbone, I+O Laboratory Tests 01/17/20 21:00 01/18/20 05:57 Vital Signs Date Time Temp Pulse Resp B/P (MAP) Pulse Ox O2 Delivery O2 Flow Rate FiO2 01/18/20 20:26 22 Nasal Cannula 3.0 01/18/20 15:54 93 01/18/20 14:00 97.8 101 130/75 (93) I&O- Last 24 Hours up to 6 AM 01/18/20 06:00 Intake Total 120 ml Output Total 300 ml Balance -180 ml GME ATTESTATION GME ATTESTATION My faculty preceptor for this patient encounter was physically present during the encounter and was fully available. All aspects of the patient interview, examination, medical decision making process, and medical care plan development were reviewed and approved by the faculty preceptor. The faculty preceptor is aware and concurs with the plan as stated in the body of this note and will attest to such by his/her cosignature. ATTENDING NOTE I have interviewed and examined the patient at the bedside, and agree with the physical findings, assessment, and management plan as documented above. LOLLY CUMMINS D.O. Jan 18, 2020 20:55 DES DURAND MD Jan 19, 2020 03:22
[2020-01-18] MEDS ORDERED: CLOPIDOGREL 75 MG TAB PO STA (20:56)
[2020-01-18] MEDS: **NOTE PATIENT COMMENT** MISC XX SCH (21:00)
[2020-01-18] MEDS ORDERED: MORPHINE 2 MG/ML 1ML VIAL (J2270) IV ONE (21:00)
[2020-01-18] MEDS ORDERED: MORPHINE 2 MG/ML 1ML VIAL (J2270) IV PRN (21:00)
[2020-01-18 21:04] LABS: CK-MB VALUE MASS 1.4 NG/ML (<3.6); CPK CREATINE PHOSPHOKINASE 67 U/L (26-192); MB/CK RELATIVE INDEX 2.09 (< OR =4); TROPONIN I < 0.02 NG/ML (< 0.10)
[2020-01-18] MEDS ORDERED: METOPROLOL TART 12.5 MG PER 1/2 TAB PO ONE (22:00)
--- NOTE | 2020-01-18 22:39 | ECGEPIP ---
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 Order Number: [id number] Reading MD: Jez Ng Measurements Intervals [place] Rate: 92 P: 82 [place]: 164 QRS: 71 QRSD: 113 T: 82 QT: 339 QTc: 420 Interpretive Statements SINUS RHYTHM MODERATE INTRAVENTRICULAR CONDUCTION DELAY NONSPECIFIC ST & T-WAVE ABNORMALITY Decreased heart rate Compared with 01/17/2020 Electronically Signed on 01-18-2020 22:38:42 EST by Jez Ng
[2020-01-18] MEDS ORDERED: **hydrALAZINE** 10 MG TAB PO ONE (23:30)
[2020-01-18] MEDS ORDERED: NIFEdipine 10 MG CAP PO PRN (23:30)
[2020-01-19 00:16] VITALS: BP 141/52
[2020-01-19 01:19] LABS: CK-MB VALUE MASS 1.7 NG/ML (<3.6); CPK CREATINE PHOSPHOKINASE 52 U/L (26-192); MB/CK RELATIVE INDEX 3.27 (< OR =4); TROPONIN I < 0.02 NG/ML (< 0.10)
[2020-01-19] MEDS: IPRATROPIUM 0.5MG/ALBUTEROL 2.5MG INH SOL UD 3ML (DUONEB)(J7620) NEB SCH ×4 (02:00→20:10)
[2020-01-19 02:43] VITALS: BP 138/58
[2020-01-19] MEDS: LEVALBUTEROL 1.25 MG/0.5 ML CONCENTRATE NEB NEB SCH ×6 (03:47→20:00)
[2020-01-19] MEDS: LEVOTHYROXINE 75MCG TABLET (0.075MG) PO SCH (05:51)
[2020-01-19 06:00] VITALS: BP 136/45
[2020-01-19 07:25] LABS: HEMATOCRIT 36.7 % (36.0-47.0); HEMOGLOBIN 10.9 g/dl (12.0-15.5); MEAN CORPUSCULAR HEMOGLOBIN 22.3 pg (27.0-33.0); MEAN CORPUSCULAR HGB CONC 29.7 g/dl (32.0-36.5); MEAN CORPUSCULAR VOLUME 75.2 fl (80.0-96.0); PLATELET COUNT, AUTOMATED 422 10^3/uL (150-450); RED BLOOD COUNT 4.88 10^6/uL (4.00-5.40); WHITE BLOOD COUNT 17.3 10^3/uL (4.0-10.0)
[2020-01-19 07:55] LABS: BLOOD UREA NITROGEN 30 MG/DL (7-18); CALCIUM LEVEL 8.8 MG/DL (8.8-10.2); CARBON DIOXIDE LEVEL 28 MEQ/L (21-32); CHLORIDE LEVEL 103 MEQ/L (98-107); CREATININE FOR GFR 0.91 MG/DL (0.55-1.30); GLOMERULAR FILTRATION RATE > 60.0 (>39); GLUCOSE, FASTING 262 MG/DL (70-100); SODIUM LEVEL 135 MEQ/L (136-145)
[2020-01-19 07:56] LABS: PHOSPHORUS LEVEL 3.8 MG/DL (2.5-4.9)
[2020-01-19] MEDS: HEPARIN SOD (PORCINE) 5000 UNITS/ML VIAL (J1644 PER 1000UNITS) SQ SCH ×2 (08:26→21:30)
[2020-01-19] MEDS: LIDOCAINE 5% (LIDODERM) PATCH TD SCH (08:27)
[2020-01-19] MEDS: HumaLOG INSULIN (NovoLOG) PER UNIT SC SCH ×4 (08:27→21:30)
[2020-01-19] MEDS: METOPROLOL SUCC (TopROL XL) 50MG **XL** TAB PO SCH (08:28)
[2020-01-19] MEDS: predniSONE 20 MG TAB PO SCH (08:28)
[2020-01-19] MEDS: ASPIRIN 81 MG ENTERIC TAB PO SCH (08:28)
[2020-01-19] MEDS: VITAMIN D 1,000 INTERNATIONAL UNITS TABLET PO SCH (08:28)
[2020-01-19] MEDS: FERROUS SULFATE 325MG TAB PO SCH (08:28)
[2020-01-19 14:00] VITALS: BP 147/52
[2020-01-19] MEDS: ACETAMINOPHEN TAB 650MG DOSE (2X325MG) PO PRN (18:26)
[2020-01-19] MEDS: EZETIMIBE 10 MG TAB (ZETIA) PO SCH (21:32)
[2020-01-19] MEDS: SIMVASTATIN 40 MG TAB PO SCH (21:32)
[2020-01-19] MEDS: LOSARTAN 50 MG TAB PO SCH (21:32)
[2020-01-19] MEDS: **NOTE PATIENT COMMENT** MISC XX SCH (21:34)
--- NOTE | 2020-01-19 21:36 | IPNPDOC ---
Date Seen The patient was seen on 01/19/20. Progress Note SUBJECTIVE: 79-year-old female with past medical history of COPD on home oxygen, diabetes mellitus, hypertension and hypothyroidism was admitted for COPD exacerbation. Patient seen in the morning, reports slight improvement in dyspnea and cough. Patient is down to her baseline oxygen of 2 L/m. Patient reports progressive worsening over the past few weeks, also reports pleuritic chest/back pain with coughing. She has no additional complaints at this time, denies any headache, nausea, vomiting, abdominal pain or diarrhea. 01/19/20 Patient seen in the morning, slight improvement in breathing but worse than baseline. Patient's at her baseline O2 requirement, had CP w/ elevated BP, treated w/ IV meds & cardiac workup was negative. She continues to have a cough, no additional complaints, denies CP, N/V/D or abdominal pain at this time. 10 point review of system is negative except for above PHYSICAL EXAMINATION: VITAL SIGNS: Please see below. GENERAL: No distress HEENT: Normocephalic, atraumatic, moist mucous membranes NECK: Supple CARDIOVASCULAR EXAMINATION: S1, S2, no murmurs RESPIRATORY EXAMINATION: Diminished, poor air movement, scattered rhonchi and wheezing appreciated ABDOMINAL EXAMINATION: Soft, nontender, nondistended, positive bowel sounds EXTREMITIES: Range of motion intact SKIN: No rash NEUROLOGICAL EXAMINATION: Alert and oriented 3, no focal deficits PSYCHIATRIC EXAMINATION: Calm and cooperative LABORATORY DATA, IMAGING STUDIES, MICROBIOLOGY: Please see below. ASSESSMENT AND PLAN: 79-year-old female with past medical history of COPD on home oxygen, hypertension, diabetes mellitus and hypothyroidism was admitted for COPD exacerbation. PROBLEMS: 1. COPD exacerbation: continue prednisone 60 mg daily, will titrate, DuoNeb every 6 hours, continue supplemental oxygen as needed to maintain O2 sats between 88-92%. 2.Diabetes mellitus: Levemir 10 units qHS along with sliding scale insulin coverage with meals and at bedtime. 3. Hypertension: Continue losartan and metoprolol. 4. Hypothyroidism: Continue levothyroxine DVT prophylaxis: Heparin subcutaneous. GI prophylaxis: Not needed VS, I&O, 24H, Fishbone Vital Signs/I&O Vital Signs Date Time Temp Pulse Resp B/P (MAP) Pulse Ox O2 Delivery O2 Flow Rate FiO2 01/19/20 14:00 98.0 74 18 147/52 (83) 97 Nasal Cannula 3.0 I&O- Last 24 Hours up to 6 AM 01/19/20 06:00 Intake Total 1500 ml Output Total 3200 ml Balance -1700 ml Laboratory Data 24H LABS Laboratory Tests 2 01/19/20 00:32: Total Creatine Kinase 52, Creatine Kinase MB 1.7, Creatine Kinase MB Relative Index 3.27, Troponin I < 0.02 01/19/20 00:50: Urine Color STRAW, Urine Appearance CLEAR, Urine pH 5.0, Urine Specific [place] 1.009, Urine Protein NEGATIVE, Urine Glucose (UA) 1+H, Urine Ketones NEGATIVE, Urine Blood NEGATIVE, Urine Nitrite NEGATIVE, Urine Bilirubin NEGATIVE, Urine Urobilinogen 0.2, Urine Leukocyte Esterase NEGATIVE, Urine WBC (Auto) 2, Urine R BC (Auto) 1, Urine Hyaline Casts (Auto) 0, Urine Bacteria (Auto) NEGATIVE, Urine Squamous Epithelial Cells 0, Urine Mucus (Auto) SMALL, Urine Sperm (Auto) 01/19/20 07:08: Nucleated Red Blood Cells % (auto) 0.0, Anion Gap 4L, Glomerular Filtration Rate > 60.0, Calcium Level 8.8, Phosphorus Level 3.8, Magnesium Level 2.0 01/19/20 11:40: Bedside Glucose (Misc Panel) 353H 01/19/20 16:54: Bedside Glucose (Misc Panel) 329H 01/19/20 20:53: Bedside Glucose (Misc Panel) 353H CBC/BMP Laboratory Tests 01/19/20 07:08 Microbiology Microbiology 01/17/20 Respiratory Virus Panel (PCR) ([facility]) - Final, Complete 01/17/20 Blood Culture - Preliminary, Resulted No growth after 24 hours . All specim... RUI HOLLIS MD Jan 19, 2020 21:36
[2020-01-19 22:00] VITALS: BP 148/54
[2020-01-19] MEDS ORDERED: LEVEMIR (INSULIN DETEMIR) 1 UNITS/0.01ML SC SCH (22:00)
[2020-01-20] MEDS: IPRATROPIUM 0.5MG/ALBUTEROL 2.5MG INH SOL UD 3ML (DUONEB)(J7620) NEB SCH ×3 (02:00→13:43)
[2020-01-20] MEDS: LEVALBUTEROL 1.25 MG/0.5 ML CONCENTRATE NEB NEB SCH ×5 (04:00→15:18)
[2020-01-20] MEDS: LEVOTHYROXINE 75MCG TABLET (0.075MG) PO SCH (05:37)
[2020-01-20 06:00] VITALS: BP 104/71
[2020-01-20 06:15] LABS: HEMATOCRIT 36.5 % (36.0-47.0); HEMOGLOBIN 10.8 g/dl (12.0-15.5); MEAN CORPUSCULAR HEMOGLOBIN 22.3 pg (27.0-33.0); MEAN CORPUSCULAR HGB CONC 29.6 g/dl (32.0-36.5); MEAN CORPUSCULAR VOLUME 75.4 fl (80.0-96.0); PLATELET COUNT, AUTOMATED 408 10^3/uL (150-450); RED BLOOD COUNT 4.84 10^6/uL (4.00-5.40)
[2020-01-20] MEDS: ACETAMINOPHEN TAB 650MG DOSE (2X325MG) PO PRN (06:32)
[2020-01-20 06:37] LABS: BLOOD UREA NITROGEN 27 MG/DL (7-18); CALCIUM LEVEL 8.6 MG/DL (8.8-10.2); CARBON DIOXIDE LEVEL 30 MEQ/L (21-32); CHLORIDE LEVEL 107 MEQ/L (98-107); CREATININE FOR GFR 0.77 MG/DL (0.55-1.30); GLOMERULAR FILTRATION RATE > 60.0 (>39); GLUCOSE, FASTING 152 MG/DL (70-100); POTASSIUM SERUM 4.3 MEQ/L (3.5-5.1); SODIUM LEVEL 140 MEQ/L (136-145)
[2020-01-20] MEDS: ASPIRIN 81 MG ENTERIC TAB PO SCH (08:02)
[2020-01-20] MEDS: HumaLOG INSULIN (NovoLOG) PER UNIT SC SCH ×2 (08:03→12:23)
[2020-01-20] MEDS: VITAMIN D 1,000 INTERNATIONAL UNITS TABLET PO SCH (08:03)
[2020-01-20] MEDS: HEPARIN SOD (PORCINE) 5000 UNITS/ML VIAL (J1644 PER 1000UNITS) SQ SCH (08:03)
[2020-01-20] MEDS: FERROUS SULFATE 325MG TAB PO SCH (08:03)
[2020-01-20] MEDS: predniSONE 20 MG TAB PO SCH (08:03)
[2020-01-20 08:04] VITALS: BP 116/68
[2020-01-20] MEDS: METOPROLOL SUCC (TopROL XL) 50MG **XL** TAB PO SCH (08:04)
[2020-01-20] MEDS: LIDOCAINE 5% (LIDODERM) PATCH TD SCH (08:04)
[2020-01-20] MEDS ORDERED: PERCOCET 5MG/325MG TAB PO ONE (10:30)
[2020-01-20] MEDS ORDERED: PRED10TA2 PO ×2 (11:50→14:59)
[2020-01-20] MEDS ORDERED: LIDO1PAD TOP (11:50)
--- NOTE | 2020-01-20 18:40 | DS.PDOC ---
Discharge Summary General Date of Admission Jan 17, 2020 at 23:19 Date of Discharge 01/20/20 Attending Physician: RUI HOLLIS MD Discharge Summary PROCEDURES PERFORMED DURING STAY: None. ADMITTING DIAGNOSES: 1. Hypoxemic respiratory failure, COPD exacerbation. DISCHARGE DIAGNOSES: 1. Hypoxemic respiratory failure, COPD exacerbation. COMPLICATIONS/CHIEF COMPLAINT: COPD. HISTORY OF PRESENT ILLNESS: 79-year-old female with past history of COPD on home oxygen, diabetes mellitus, hypertension, hypothyroidism, was admitted for hypoxemic respiratory failure from COPD exacerbation. Patient was treated with IV steroids with significant clinical improvement, patient back to her baseline level of supplemental oxygen, evaluated by physical therapy and cleared for discharge home with home services. 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 Patient will be discharged on a prednisone taper, advised close follow-up with PCP and before school babysitter. Patient is clinically and hemodynamically stable for discharge and outpatient follow-up at this time. HOSPITAL COURSE: As above. DISCHARGE MEDICATIONS: Please see below. ALLERGIES: Please see below. PHYSICAL EXAMINATION: VITAL SIGNS: Please see below. GENERAL: No distress HEENT: Normocephalic, atraumatic, moist mucous membranes NECK: Supple CARDIOVASCULAR EXAMINATION: S1, S2, no murmurs RESPIRATORY EXAMINATION: Significantly improved air movement, mild expiratory wheezing ABDOMINAL EXAMINATION: Soft, nontender, nondistended, positive bowel sounds EXTREMITIES: Range of motion intact SKIN: No rash NEUROLOGICAL EXAMINATION: Alert and oriented 3, no focal deficits PSYCHIATRIC EXAMINATION: Calm and cooperative LABORATORY DATA: Please see below. IMAGING: CT consistent with COPD, no PE PROGNOSIS: Guarded ACTIVITY: As tolerated. DIET: Cardiac with consistent carbs DISCHARGE PLAN: Follow-up with before school babysitter and PCP within 1-2 weeks DISPOSITION: 01 Home, Self-Care. DISCHARGE INSTRUCTIONS: 1. As above. DISCHARGE CONDITION: Stable. TIME SPENT ON DISCHARGE: Greater than 32 minutes. Vital Signs/I&Os Vital Signs Date Time Temp Pulse Resp B/P (MAP) Pulse Ox O2 Delivery O2 Flow Rate FiO2 01/20/20 13:40 20 Nasal Cannula 2.0 01/20/20 08:04 65 116/68 01/20/20 06:00 98.4 99 I&O- Last 24 Hours up to 6 AM 01/20/20 06:00 Intake Total 490 ml Output Total 1100 ml Balance -610 ml Laboratory Data Labs 24H Laboratory Tests 2 01/19/20 20:53: Bedside Glucose (Misc Panel) 353H 01/20/20 06:02: Nucleated Red Blood Cells % (auto) 0.0, Anion Gap 3L, Glomerular Filtration Rate > 60.0, Calcium Level 8.6L 01/20/20 11:27: Bedside Glucose (Misc Panel) 268H CBC/BMP Laboratory Tests 01/20/20 06:02 FSBS Laboratory Tests Test 01/19/20 20:53 01/20/20 11:27 Range/Units Bedside Glucose (Misc Panel) 353 268 83-110 MG/DL Microbiology Microbiology 01/17/20 Respiratory Virus Panel (PCR) ([facility]) - Final, Complete 01/17/20 Blood Culture - Preliminary, Resulted No Growth after 48 hours. All Specime... Discharge Medications Scheduled Aspirin (Aspir 81) 81 Mg Tablet.dr, 81 MG PO DAILY, (Reported) Cholecalciferol (Vitamin D3) (Vitamin D3) 1,000 Unit Tablet, 1,000 UNITS PO DAILY, (Reported) Ezetimibe (Zetia) 10 Mg Tab, 10 MG PO QHS, (Reported) Ferrous Sulfate (Ferrous Sulfate) 325 Mg Tablet, 325 MG PO DAILY, (Reported) Glipizide (Glipizide ER) 5 Mg Tab.er.24, 5 MG PO DAILY, (Reported) Levothyroxine Sodium (Levothyroxine Sodium) 75 Mcg Tab, 75 MCG PO DAILY, (Reported) USES BRAND SYNTHROID Losartan Potassium (Losartan Potassium) 100 Mg Tab, 100 MG PO QHS, (Reported) Metformin HCl (Metformin HCl ER) 500 Mg Tab.er.24h, 500 MG PO BID, (Reported) Metoprolol Succinate (Metoprolol Succinate) 50 Mg Tab.er.24h, 50 MG PO DAILY, (Reported) Prednisone (Prednisone) 10 Mg Tablet, 1 TAB PO DAILY 5 tabs daily x2 days, then 4 tabs daily x2 days, then 3 tabs daily x2 days, then 2 tabs daily x2 days then 1 tab daily x2 days Salmeterol/Fluticasone (Advair 500-50 Diskus) 28 Puff/Inhaler Aerp, 1 PUFF INH BID, (Reported) Simvastatin (Zocor) 80 Mg Tablet, 80 MG PO QHS, (Reported) Theophylline Anhydrous (Theophylline Anhydrous) 300 Mg Tab.er.12h, 300 MG PO BID, (Reported) Tiotropium [place] (Spiriva) 18 Mcg Cap, 1 PUFF INH DAILY, (Reported) Scheduled PRN Albuterol Sulf (Albuterol Sulfate) 2.5 Mg/3 Ml Vial.neb, 1 VIAL INH Q4H PRN for SHORTNESS OF BREATH, (Reported) Albuterol Sulfate (Ventolin Hfa) 18 Gm Hfa.aer.ad, 2 PUFF INH Q4H PRN for wheezing, (Reported) Lidocaine (Lidocaine) 5% Adh..patch, 1 PATCH TOP DAILY PRN for PAIN ON FOR 12H OFF FOR 12H. APPLY TO UPPER BACK Nitroglycerin (Nitroglycerin) 0.4 Mg Tab.subl, 0.4 MG SL NITRO PRN for CHEST PAIN, (Reported) Oxycodone HCl/Acetaminophen (Oxycodone-Acetaminophen 5-325) 1 Each Tablet, 1 TAB PO BID PRN for PAIN, (Reported) Allergies Coded Allergies: Cephalosporins (Verified Allergy, Mild, RASH, 07/17/19) apixaban (Verified Allergy, Mild, RASH, 07/17/19) carisoprodol (Verified Allergy, Mild, RASH, 07/17/19) clavulanic acid (Verified Allergy, Mild, VOMITING, RASH, 01/17/20) AMOXICILLIN, PENICILLIN, AMPICILLIN OK PER PT codeine (Verified Allergy, Mild, RASH, 07/17/19) Sulfa (Sulfonamide Antibiotics) (Verified Allergy, Unknown, UNKNOWN RXN A CHILD, 07/17/19) RUI HOLLIS MD Jan 20, 2020 18:40
== END 2020-01-20 15:33 | disposition home health service (06) | DRG 189 ==
LOC: M ED 20:00 → EDUNIT# 20:00 → EDBD 20:00 → M ED INP 23:19 → ENRESERVTM 23:57 → ENRESERVDT 23:57 → M MSPAV 01-18 01:05
PROVIDERS: ADMIT General Practice; ATTEND Internal Medicine
DX: J96.91 Respiratory failure, unspecified with hypoxia (principal); J44.1 Chronic obstructive pulmonary disease with (acute) exacerbation; E11.9 Type 2 diabetes mellitus without complications; I10 Essential (primary) hypertension; E03.9 Hypothyroidism, unspecified; Z79.82 Long term (current) use of aspirin; Z79.899 Other long term (current) drug therapy; Z88.8 Allergy status to other drugs, medicaments and biological substances; Z88.5 Allergy status to narcotic agent; Z88.2 Allergy status to sulfonamides; Z86.711 Personal history of pulmonary embolism; M81.0 Age-related osteoporosis without current pathological fracture; E78.5 Hyperlipidemia, unspecified; F17.210 Nicotine dependence, cigarettes, uncomplicated

== ENCOUNTER 2020-09-20 12:43 | Inpatient (IN) | payer MEDICARE, OTHER ==
[~2020-09-20] VITALS: Ht 157.5 cm; Wt 63.8 kg
[~2020-09-20 12:43] MED LIST changes: -AMLO10TA5 PO; +AMLO1TAB25 PO; -ASPI81TA85 PO; +ASPI81TA86 PO; +D31000TA2 PO; +GLIP5TAB20 PO; +METF-838 PO; +PANT40TA29 PO; -PANT40TA3 PO
[2020-09-20] MEDS ORDERED: FERR325T18 PO (13:49)
[2020-09-20] MEDS ORDERED: CHLO125TA PO (14:20)
[2020-09-20] MEDS ORDERED: ATOR40TA75 PO (14:20)
[2020-09-20] MEDS ORDERED: SIME40TA PO (14:20)
[2020-09-20] MEDS ORDERED: methylPREDNISolone 125MG 2ML VIAL IV ONE (14:45)
[2020-09-20] MEDS: IPRATROPIUM 0.5MG/ALBUTEROL 2.5MG INH SOL UD 3ML (DUONEB) NEB PRN ×6 (14:57→16:00)
[2020-09-20 15:44] LABS: BASO # 0.1 10^3/uL (0.0-0.2); BASO % 0.5 % (0.0-1.0); EOS # 0.2 10^3/uL (0.0-0.5); EOS % 1.5 % (0.0-3.0); HEMATOCRIT 43.3 % (36.0-47.0); HEMOGLOBIN 13.5 g/dl (12.0-15.5); LYMPH # 3.1 10^3/uL (1.5-5.0); LYMPH % 20.3 % (24.0-44.0); MEAN CORPUSCULAR HEMOGLOBIN 24.4 pg (27.0-33.0); MEAN CORPUSCULAR HGB CONC 31.2 g/dl (32.0-36.5); MEAN CORPUSCULAR VOLUME 78.2 fl (80.0-96.0); MONO # 0.9 10^3/uL (0.0-0.8); MONO % 6.1 % (0.0-5.0); NEUTROPHILS # 10.7 10^3/uL (1.5-8.5); PLATELET COUNT, AUTOMATED 353 10^3/uL (150-450); RED BLOOD COUNT 5.54 10^6/uL (4.00-5.40); WHITE BLOOD COUNT 15.1 10^3/uL (4.0-10.0)
[2020-09-20 15:55] LABS: INR 0.87
[2020-09-20 15:56] LABS: PARTIAL THROMBOPLASTIN TIME 24.7 SECONDS (24.2-38.5)
[2020-09-20 16:08] LABS: ALT/SGPT 35 U/L (12-78); BILIRUBIN,DIRECT 0.1 MG/DL (0.0-0.2); BILIRUBIN,TOTAL 0.4 MG/DL (0.2-1.0); BLOOD UREA NITROGEN 12 MG/DL (7-18); CALCIUM LEVEL 8.5 MG/DL (8.8-10.2); CARBON DIOXIDE LEVEL 33 MEQ/L (21-32); CHLORIDE LEVEL 106 MEQ/L (98-107); CK-MB VALUE MASS 1.8 NG/ML (<3.6); CPK CREATINE PHOSPHOKINASE 44 U/L (26-192); CREATININE FOR GFR 0.83 MG/DL (0.55-1.30); FREE T4 0.85 NG/DL (0.76-1.46); GLOMERULAR FILTRATION RATE > 60.0 (>39); GLUCOSE, FASTING 203 MG/DL (70-100); LIPASE 186 U/L (73-393); MB/CK RELATIVE INDEX 4.09 (< OR =4); NT-PRO BNP 1520 PG/ML (<450); POTASSIUM SERUM 3.3 MEQ/L (3.5-5.1); SODIUM LEVEL 144 MEQ/L (136-145); TOTAL PROTEIN 6.2 GM/DL (6.4-8.2); TROPONIN I 0.03 NG/ML (< 0.10)
[2020-09-20] MEDS ORDERED: CHLORTHALIDONE 25 MG TAB PO ONE (16:15)
[2020-09-20] MEDS ORDERED: PERCOCET 5MG/325MG TAB PO ONE ×2 (16:15→19:30)
[2020-09-20] MEDS ORDERED: POTASSIUM CHLORIDE 10 MEQ SR TABLET PO ONE (16:15)
[2020-09-20] MEDS ORDERED: ISOVUE-370 76% 100ML VIAL As Ordered ONE (16:22)
--- NOTE | 2020-09-20 16:27 | REP ---
INDICATION: SOB COMPARISON: 01/17/2020 TECHNIQUE: PA and lateral. FINDINGS: The mediastinum and cardiac silhouette are normal. The lung cervantes are clear and without acute consolidation, effusion, or pneumothorax. The skeletal structures are intact and normal. IMPRESSION: No acute cardiopulmonary process. <Electronically signed by Garrett Gonzales > 09/20/20 1601
--- NOTE | 2020-09-20 18:57 | REPVR ---
PROCEDURE INFORMATION: Exam: CT Abdomen And Pelvis With Contrast Exam date and time: 09/20/2020 5:58 PM Age: 80 years old Clinical indication: Abdominal pain; Additional info: Left sided abd pain, diarrhea TECHNIQUE: Imaging protocol: Computed tomography of the abdomen and pelvis with intravenous contrast. Radiation optimization: All CT scans at this facility use at least one of these dose optimization techniques: automated exposure control; mA and/or kV adjustment per patient size (includes targeted exams where dose is matched to clinical indication); or iterative reconstruction. Contrast material: ISOVUE 370; Contrast volume: 100 ml; Contrast route: INTRAVENOUS (IV); COMPARISON: CT ABD/PEL W/IV ORAL CONTRAS 06/21/2020 5:08 AM FINDINGS: Lungs: No consolidation or effusion is seen at the lung bases. Liver: There are no focal liver lesions. Gallbladder and bile ducts: Calculi are seen in the dependent portion of the gallbladder. Pancreas: The pancreas is normal. Spleen: The spleen is normal. Adrenals: Stable right adrenal lesion measuring 2.5 cm with HU of 34. The left adrenal gland is prominent without focal mass identified. Kidneys and ureters: The kidneys are unremarkable. Stomach and bowel: Diverticulosis particularly in the sigmoid colon where there is wall thickening similar appearance to the prior study. There is no pericolonic inflammation. No abscess is identified. Appendix: The appendix is unremarkable. Intraperitoneal space: See "Soft tissues" finding. Vasculature: There is no evidence of an infrarenal abdominal aortic aneurysm. The arteries demonstrates diffuse marked atherosclerotic calcification. Lymph nodes: Unremarkable. No enlarged lymph nodes. Urinary bladder: The bladder is unremarkable. Reproductive: Unremarkable as visualized. Bones/joints: Unremarkable. No acute fracture. Soft tissues: Midline abdominal wall hernia orifice measuring 1.6 cm. It contains mesenteric fat measuring 7.7 cm in width extending to the dermis- unchanged. IMPRESSION: 1. Diverticulosis particularly in the sigmoid colon with wall thickening without CT evidence of acute diverticulitis. No evidence of bowel or urinary tract obstruction. 2. Cholelithiasis without CT evidence of acute cholecystitis. 3. Stable right adrenal mass which is been described as stable on 01/07/2018 CT which was compared with prior CT from 03/15/2015. 4. 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 Electronically signed by: Stephanie Young On 09/20/2020 18:56:57 PM
[2020-09-20] MEDS ORDERED: MAALOX 30 ML SUSP *UDC PO PRN (19:30)
[2020-09-20] MEDS ORDERED: ALBUTEROL SULFATE 2.5 MG/0.5 ML INH NEB SOLN NEB PRN (19:30)
[2020-09-20] MEDS ORDERED: MOM 30ML SUSPENSION UDC PO PRN (19:30)
[2020-09-20] MEDS ORDERED: GLUCOSE 4GM CHEW TABLET PO PRN (19:30)
[2020-09-20] MEDS ORDERED: FUROSEMIDE 40MG/4ML VIAL (J1940) IV ONE (19:30)
[2020-09-20] MEDS ORDERED: ACETAMINOPHEN TAB 650MG DOSE (2X325MG) PO PRN (19:30)
[2020-09-20] MEDS ORDERED: GLUCAGON INJ 1MG VIAL SC PRN (19:30)
[2020-09-20] MEDS ORDERED: DEXTROSE 50% 50 ML SYRINGE IV PRN (19:30)
[2020-09-20] MEDS ORDERED: ASPI81TA26 PO (19:48)
[2020-09-20] MEDS ORDERED: THEO300T33 PO (19:48)
[2020-09-20] MEDS ORDERED: PRED10TA2 PO (19:48)
[2020-09-20] MEDS: IPRATROPIUM 0.5MG/ALBUTEROL 2.5MG INH SOL UD 3ML (DUONEB) NEB SCH (20:00)
[2020-09-20 20:26] LABS: PHOSPHORUS LEVEL 2.7 MG/DL (2.5-4.9)
--- NOTE | 2020-09-20 20:36 | ECGEPIP ---
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
[2020-09-20 20:40] VITALS: BP 168/70
[2020-09-20] MEDS ORDERED: HumaLOG INSULIN (NovoLOG) PER UNIT SC SCH (21:00)
[2020-09-20] MEDS ORDERED: LevoFLOXacin 750 MG TABLET PO ONE (21:00)
[2020-09-20] MEDS ORDERED: ENOXAPARIN 40MG/0.4ML SYRINGE (J1650 PER 10MG) SC SCH (21:00)
--- NOTE | 2020-09-20 21:17 | HPEPDOC ---
[facility] Medical History & Physical Date of Admission Sep 20, 2020 Date of Service: Sep 20, 2020 Attending Physician: GALLO HAAS MD History and Physical TIME OF SERVICE: 755pm CHIEF COMPLAINT: dyspnea HISTORY OF PRESENT ILLNESS: is 80 yr old smoker who presented w c/o of dyspnea for 4 or 5 days associated with runny nose, sore throat, cough productive of green and yellow sputum (at baseline her chronic cough is productive of clear sputum), fever, muscle aches, malaise, dizziness, nausea and intermittent left lower abdominal pain. She denies having sick contacts or travelling recently. She denies having chest pain, feeling like she is retaining water or BLE edema. Per d/w she patient continued to wheeze despite receiving nebs and steroids. REVIEW OF SYSTEMS: 12 point review of systems negative except as listed in HPI PAST MEDICAL/ SURGICAL HISTORY: COPD Chronic O2 dependent respiratory failure Chronic Diastolic CHF / Grade 1 DD NIDDM Remote hx of Pulmonary embolism (diagnosed in June 2018 based on previous notes she stopped taking apixaban on her own bc of "itchy skin" and GI bleed, but today she reported she stopped taking the med when the script ran out) Chronic Hypertension Hypothyroidism Chronic back and shoulder pain Dyslipidemia Hearing loss Osteoporosis based on the presence of a T4 wedge compression fracture on CT of the chest Moderate MVR Unsteady gait inconsistently uses walker Depression /Anxiety Chronic adrenal nodule s/p Partial thyroidectomy s/p tonsillectomy s/p umbilical hernia repair s/p b/l cataract removal SOCIAL HISTORY: + tobacco / lives w and grand-daughter FAMILY HISTORY: Lung Cancer (in siblings), Diabetes (father), Heart disease (mother), Hypertension (mother) ALLERGIES: Please see below. HOME MEDICATIONS: Please see below. PHYSICAL EXAMINATION: Vital Signs Date Time Temp Pulse Resp B/P (MAP) Pulse Ox O2 Delivery O2 Flow Rate FiO2 09/20/20 12:44 99.1 107 32 193/91 (125) 94 Room Air 09/20/20 20:40 2.0 GEN: well nourished / well developed/ slightly anxious INTEGUMENT: she doesn't have facial plethora HEENT: lips acyanotic / she has pursed lip breathing / NC in place / mucus membranes moist and pink / sclera anicteric CVS: RRR/ radial pulses intact / no lower extremity edema LUNGS: she is not able to speak full sentences without stopping to take a breath and is coughing occasionally / she is using accessory muscles / there is decreased respiratory expansion/ breath sounds are diminished bilaterally MSK/EXTREMITIES: NCAT / she is seated in tripod position / range of motion intact in all 4 extremities NEURO: CN 2-12 are grossly intact / speech is not dysarthric PSYCH: alert and oriented to person place and time/ able to understand and follow all commands EKG: showed sinus rhythm w T wave inversions in V1 and V2 LABORATORY DATA: 09/20/20 15:30 Immature Granulocyte % (Auto) 0.6, Neutrophils (%) (Auto) 71.0H, Lymphocytes (%) (Auto) 20.3L, Monocytes (%) (Auto) 6.1H, Eosinophils (%) (Auto) 1.5, Basophils (%) (Auto) 0.5, Neutrophils # (Auto) 10.7H, Lymphocytes # (Auto) 3.1, Monocytes # (Auto) 0.9H, Eosinophils # (Auto) 0.2, Basophils # (Auto) 0.1, Nucleated Red Blood Cells % (auto) 0.0, Prothrombin Time 12.0, Prothromb Time International Ratio 0.87, Activated Partial Thromboplast Time 24.7L, Anion Gap 5L, Glomerular Filtration Rate > 60.0, Calcium Level 8.5L, Phosphorus Level 2.7, Total Bilirubin 0.4, Direct Bilirubin 0.1, Aspartate Amino Transf (AST/SGOT) 16, Alanine Aminotransferase (ALT/SGPT) 35, Alkaline Phosphatase 91, Total Creatine Kinase 44, Creatine Kinase MB 1.8, Creatine Kinase MB Relative Index 4.09H, Troponin I 0.03, RG-Bjp-A-Type Natriuretic Peptide 1520H, Total Protein 6.2L, Albumin 3.0L, Albumin/Globulin Ratio 0.9L, Lipase 186, Thyroid Stimulating Hormone (TSH) 8.410H, Free Thyroxine 0.85 IMAGING: Chest xray "IMPRESSION: No acute cardiopulmonary process." CT abd/pelvis "IMPRESSION: 1. Diverticulosis particularly in the sigmoid colon with wall thickening without CT evidence of acute diverticulitis. No evidence of bowel or urinary tract obstruction. 2. Cholelithiasis without CT evidence of acute cholecystitis. 3. Stable right adrenal mass which is been described as stable on 01/07/2018 CT which was compared with prior CT from 03/15/2015. 4. 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 " MICROBIOLOGY: 09/20/20 Group A Streptococcus Screen ([facility]), Received Pending 09/20/20 Respiratory Virus Panel (PCR) ([facility]NA) - Final, Complete ASSESSMENT: Ms. Cai is a 79-year-old smoker with a hx of of COPD, Chronic O2 dependent respiratory failure, Chronic Diastolic CHF, HTN, remote hx of PE (not compliant w AC), NIDDM, Hypothyroidism, Osteoporosis, Unsteady gait, Anxiety/depression, and Hearing loss who presented w c/o dyspnea, cough w yellow/green sputum, runny nose and sore throat; she will be admitted for management of acute COPD. PLAN: 1. Acute COPD Trigger may be: virus not tested on our respiratory panel vs aspiration also considering recurrent pulmonary embolism Trigger unlikely ND bc the trop is wnl and there was no ST elevation on EKG The chest x-ray r/o PNA as a possible trigger [id number] Score to predict mortality in acute COPD = Class 2 = 1% risk of in hospital mortality Leukocytosis likely 2/2 chronic steroid use Plan: admit to PCU / supplemental O2 / continuous pulse oximetry / aspiration precautions / f/u sputum cx and strep results/ Dunebs Q6H, Albuterol Q1HP, Prednisone + PPI / c/w Spiriva and theophylline / will give Levofloxacin because the patient has a (change in sputum color ) / Tessalon Pearls /if she is still short of breath in the morning the day time team may consider checking a VBG and or CTA to r/o PE / the day time team can refer her to [facility] for repeat PFTs & place a referral for Pulmonary Rehab which has been shown to reduce mortality if she attends within 90 days of discharge 2. Chronic O2 Dependent Respiratory Failure Plan: supplemental O2 3. Chronic Diastolic CHF Plan: f/u Is and Os and daily weights / Since her BNP is >1500 and more elevated that it was during her previous visits will give one dose of IV lasix to see 4. Uncontrolled HTN Plan:chlorthalidone, losartan 5. 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 NIDDM Plan: diabetic diet / f/u accuchecks & A1C / hypoglycemia protocol / sliding scale insulin / hold oral anti-glycemics 7. Hypothyroidism Plan: levothyroxine 8. Dyslipidemia Plan: c/w Zetia and Statin 9. Osteoporosis Plan: Oscal 10. Unsteady gait inconsistently uses walker Plan: PT consult for early mobilization 11. Mild Hypokalemia She received KCL in ER Plan: f/u K and Mg in AM 12.Chronic neck and back pain Plan: c/w Perocet DVT PROPHYLAXIS: lovenox DISPOSITION: home after more than 2 midnight's stay Home Medications Scheduled Aspirin (Aspirin EC) 81 Mg Tablet.dr, 81 MG PO DAILY Atorvastatin Calcium (Atorvastatin Calcium) 40 Mg Tablet, 40 MG PO QHS Chlorthalidone (Chlorthalidone) 25 Mg Tablet, 25 MG PO DAILY Ezetimibe (Zetia) 10 Mg Tab, 10 MG PO QHS Ferrous Sulfate (Ferrous Sulfate) 325 Mg Tablet, 325 MG PO BID Glipizide (Glipizide ER) 5 Mg Tab.er.24, 5 MG PO DAILY Levofloxacin (Levofloxacin) 500 Mg Tablet, 500 MG PO DAILY@1400 Levothyroxine Sodium (Levothyroxine Sodium) 75 Mcg Tab, 75 MCG PO DAILY USES BRAND SYNTHROID Losartan Potassium (Losartan Potassium) 100 Mg Tab, 100 MG PO QHS Metformin HCl (Metformin HCl ER) 500 Mg Tab.er.24h, 500 MG PO BID Prednisone (Prednisone) 10 Mg Tablet, 10 MG PO DAILY Take 4 tabs daily x 3 days, then 3 tabs daily x 3 days, then 2 tabs daily x 3 days, then 1 tab daily x 3 days and stop Salmeterol/Fluticasone (Advair 500-50 Diskus) 28 Puff/Inhaler Aerp, 1 PUFF INH BID Theophylline Anhydrous (Theophylline Anhydrous) 300 Mg Tab.er.12h, 300 MG PO BID Tiotropium Mack (Spiriva) 18 Mcg Cap, 1 PUFF INH DAILY Scheduled PRN Albuterol Sulf (Albuterol Sulfate) 2.5 Mg/3 Ml Vial.neb, 1 VIAL INH Q4H PRN for SHORTNESS OF BREATH Albuterol Sulfate (Ventolin Hfa) 18 Gm Hfa.aer.ad, 2 PUFF INH Q4H PRN for wheezing Nitroglycerin (Nitroglycerin) 0.4 Mg Tab.subl, 0.4 MG SL NITRO PRN for CHEST PAIN Oxycodone HCl/Acetaminophen (Oxycodone-Acetaminophen 5-325) 1 Each Tablet, 1 TAB PO BID PRN for PAIN Simethicone (Simethicone) 80 Mg Tab.chew, 80 MG PO QID PRN for GAS PAIN Allergies Coded Allergies: Cephalosporins (Verified Allergy, Mild, RASH, 07/17/19) apixaban (Verified Allergy, Mild, RASH, 07/17/19) carisoprodol (Verified Allergy, Mild, RASH, 07/17/19) clavulanic acid (Verified Allergy, Mild, VOMITING, RASH, 01/17/20) AMOXICILLIN, PENICILLIN, AMPICILLIN OK PER PT codeine (Verified Allergy, Mild, RASH, 07/17/19) Sulfa (Sulfonamide Antibiotics) (Verified Allergy, Unknown, UNKNOWN RXN A CHILD, 07/17/19) A-FIB/CHADSVASC A-FIB History Current/History of A-Fib/PAF?: No Current PO Anticoag Therapy: No GALLO HAAS MD Sep 20, 2020 21:16
[2020-09-20] MEDS ORDERED: SIMETHICONE 80 MG CHEW TAB PO PRN (21:30)
[2020-09-20] MEDS ORDERED: LOSARTAN 50MG TABLET PO SCH (21:30)
[2020-09-20] MEDS ORDERED: ATORVASTATIN 20 MG TAB PO SCH (21:30)
[2020-09-20] MEDS ORDERED: PERCOCET 5MG/325MG TAB PO PRN (21:30)
[2020-09-20] MEDS ORDERED: EZETIMIBE 10 MG TAB (ZETIA) PO SCH (21:30)
[2020-09-20] MEDS ORDERED: NITROGLYCERIN 0.4 MG SUBL TABLET SL PRN (21:30)
[2020-09-20] MEDS ORDERED: HumaLOG INSULIN (NovoLOG) PER UNIT SC ONE (21:45)
[2020-09-20] MEDS ORDERED: NS 500 ML IV ONE ×2 (22:30→23:45)
[2020-09-20 22:37] VITALS: BP 168/70
[2020-09-20] MEDS: BENZONATATE 100 MG CAP PO SCH (22:38)
[2020-09-20 22:59] LABS: VENOUS BASE EXCESS -0.6 (-2.0-2.0); VENOUS HCO3 24.3 MEQ/L (23.0-27.0); VENOUS O2 SATURATION 98.6 % (60.0-80.0); VENOUS PARTIAL PRESSURE CO2 41.3 mmHg (38.0-50.0); VENOUS PARTIAL PRESSURE O2 131.7 mmHg (30.0-50.0); VENOUS PH 7.388 UNITS (7.330-7.430); VENOUS TOTAL CO2 25.6 MEQ/L (24.0-28.0)
[2020-09-20] MEDS: THEOPHYLLINE (THEO-24) 100MG SR **CAPSULE PO SCH (23:00)
[2020-09-20 23:25] LABS: ACETONE/KETONE 1.52 MG/DL (<2.81); CALCIUM LEVEL 8.4 MG/DL (8.8-10.2); CREATININE FOR GFR 1.35 MG/DL (0.55-1.30); GLOMERULAR FILTRATION RATE 40.4 (>39); POTASSIUM SERUM 3.9 MEQ/L (3.5-5.1)
[2020-09-20] MEDS: HumaLOG INSULIN (NovoLOG) PER UNIT SC ONE ×2 (23:49→23:57)
[2020-09-21] VITALS: BP 125/62
[2020-09-21] MEDS ORDERED: HumaLOG INSULIN (NovoLOG) PER UNIT SC SCH ×4 (02:00→21:00)
[2020-09-21] MEDS: IPRATROPIUM 0.5MG/ALBUTEROL 2.5MG INH SOL UD 3ML (DUONEB) NEB SCH ×2 (02:00→07:18)
[2020-09-21] MEDS ORDERED: HumaLOG INSULIN (NovoLOG) PER UNIT SC ONE (02:30)
[2020-09-21 04:00] VITALS: BP 159/74
[2020-09-21] MEDS: HumaLOG INSULIN (NovoLOG) PER UNIT SC SCH ×3 (04:35→09:53)
[2020-09-21 05:52] LABS: HEMATOCRIT 42.9 % (36.0-47.0); HEMOGLOBIN 13.6 g/dl (12.0-15.5); MEAN CORPUSCULAR HEMOGLOBIN 24.4 pg (27.0-33.0); MEAN CORPUSCULAR HGB CONC 31.7 g/dl (32.0-36.5); PLATELET COUNT, AUTOMATED 388 10^3/uL (150-450); RED BLOOD COUNT 5.57 10^6/uL (4.00-5.40); WHITE BLOOD COUNT 11.3 10^3/uL (4.0-10.0)
[2020-09-21] MEDS ORDERED: LEVOTHYROXINE 75MCG TABLET (0.075MG) PO SCH (06:00)
[2020-09-21 06:08] LABS: CALCIUM LEVEL 9.1 MG/DL (8.8-10.2); CREATININE FOR GFR 0.98 MG/DL (0.55-1.30); GLOMERULAR FILTRATION RATE 58.4 (>39); MAGNESIUM LEVEL 1.8 MG/DL (1.8-2.4); POTASSIUM SERUM 3.4 MEQ/L (3.5-5.1)
[2020-09-21 06:16] LABS: HEMOGLOBIN A1c 10.4 %
[2020-09-21] MEDS: BENZONATATE 100 MG CAP PO SCH ×2 (06:28→14:19)
[2020-09-21] MEDS ORDERED: ONDANSETRON 4MG/2ML VIAL IV PRN (06:45)
[2020-09-21 08:00] VITALS: BP 133/61
[2020-09-21] MEDS ORDERED: TIOTROPIUM INHALER/CAPSULE (SPIRIVA) INH SCH (08:00)
[2020-09-21] MEDS ORDERED: LEVEMIR (INSULIN DETEMIR) 1 UNITS/0.01ML SC SCH (09:00)
[2020-09-21] MEDS ORDERED: CHLORTHALIDONE 25 MG TAB PO SCH (09:00)
[2020-09-21] MEDS ORDERED: predniSONE 20 MG TAB PO SCH (09:00)
[2020-09-21] MEDS ORDERED: PANTOPRAZOLE 40MG TAB (PROTONIX) PO SCH (09:00)
[2020-09-21] MEDS ORDERED: glipiZIDE XL 5 MG TABCR PO SCH (09:00)
[2020-09-21] MEDS ORDERED: ADVAIR HFA 230/21MCG INHALER INH SCH (09:00)
[2020-09-21] MEDS ORDERED: ASPIRIN 81 MG ENTERIC TAB PO SCH (09:00)
[2020-09-21] MEDS: THEOPHYLLINE (THEO-24) 100MG SR **CAPSULE PO SCH (09:53)
[2020-09-21] MEDS ORDERED: IPRATROPIUM 0.5MG/ALBUTEROL 2.5MG INH SOL UD 3ML (DUONEB) NEB SCH (12:00)
[2020-09-21] MEDS ORDERED: LEVO500T3 PO (13:25)
[2020-09-21] MEDS ORDERED: OXYC1TAB23 PO (13:25)
[2020-09-21] MEDS ORDERED: LevoFLOXacin 500 MG TABLET PO SCH ×2 (14:00→18:00)
--- NOTE | 2020-09-22 17:18 | DS.PDOC ---
Discharge Summary General Date of Admission Sep 20, 2020 at 19:27 Date of Discharge 09/21/20 Discharge Summary PROCEDURES PERFORMED DURING STAY: [None]. DISCHARGE DIAGNOSES: Severe back pain as she ran out of her pain meds COPD exacerbation due to severe pain SECONDARY DIAGNOSIS: COPD Chronic respiratory failure with hypoxia, uses as needed and at night. Chronic Diastolic CHF / Grade 1 DD NIDDM Remote hx of Pulmonary embolism (diagnosed in June 2018 based on previous notes she stopped taking apixaban on her own bc of "itchy skin" and GI bleed, but this time she reported she stopped taking the med when the script ran out) Chronic Hypertension Hypothyroidism Chronic back and shoulder pain Dyslipidemia Hearing loss Osteoporosis based on the presence of a T4 wedge compression fracture on CT of the chest Moderate MVR Unsteady gait inconsistently uses walker Depression /Anxiety Chronic adrenal nodule s/p Partial thyroidectomy s/p tonsillectomy s/p umbilical hernia repair s/p b/l cataract removal COMPLICATIONS/CHIEF COMPLAINT: Copd Exacerbation. HOSPITAL COURSE: 80 yo female with PMH of COPD with chronic respiratory failure with hypoxia, Hx of PE, NIDDM, hypothyroidism, HTN, DLP, chronic pain syndrome, nicotine abuse, chronic lung nodules admitted for COPD exacerbation and severe back pain as she had ran out of her pain medications. Jose Eduardo reports that she just finished a prednisone taper 2 days ago and does not want any more prednisone. She says that she was in a lot of pain as she ran out of her pain meds a week ago and that was making her anxious and breathe very hard and caused the COPD flare again. #COPD exacerbation resp viral panel is negative. levofloxacin and home COPD meds and nebs . Theophylline,advair, spiriva #Chronic respiratory failure with hypoxia continue oxygen supplementation to maintain spo2 of 88% to 92% Uses at night and only when needed. Here in room air during the day. #Hx of PE self discontinued anticoagulation #NIDDM uncontrolled, A1c 10.4 resume home medications of metformin and glipizide follow up with PMD. #Hypothyroidism synthroid #HTN cozaar, chlorthalidone #DLP zetia, zocor #chronic Back pain continue with home regimen analgesic - percocet #chronic lung nodules follow as o/p with pulmonary #depression/anxiety Not on any meds. DISCHARGE MEDICATIONS: Please see below. ALLERGIES: Please see below. PHYSICAL EXAMINATION ON DISCHARGE: VITAL SIGNS: Please see below. GEN: well nourished / well developed/ slightly anxious HEENT: lips acyanotic / she has pursed lip breathing / mucus membranes moist and pink / sclera anicteric CVS: RRR/ radial pulses intact / no lower extremity edema/ No rub or murmur or gallop LUNGS: Bilateral diminished air entry, with bilateral ronchi and wheezing ABDOMEN: Soft , nontender, bowel sounds normal. NEURO: CN 2-12 are grossly intact / speech is not dysarthric PSYCH: alert and oriented to person place and time LABORATORY DATA: Please see below. ACTIVITY: [As tolerated]. DIET: As tolerated DISPOSITION: Home, Self-Care. DISCHARGE INSTRUCTIONS: Follow up with PMD in 1 week DISCHARGE CONDITION: [Stable]. TIME SPENT ON DISCHARGE: 35 minutes. Vital Signs/I&Os Vital Signs Date Time Temp Pulse Resp B/P (MAP) Pulse Ox O2 Delivery O2 Flow Rate FiO2 09/21/20 14:51 22 09/21/20 08:00 97.5 68 133/61 (85) 97 Nasal Cannula 2.0 I&O- Last 24 Hours up to 6 AM 09/22/20 05:59 Intake Total 300 ml Output Total 300 ml Balance 0 ml Microbiology Microbiology 09/20/20 Group A Streptococcus Screen ([facility]) - Final, Complete 09/20/20 Respiratory Virus Panel (PCR) ([facility]) - Final, Complete Discharge Medications Scheduled Aspirin (Aspirin EC) 81 Mg Tablet.dr, 81 MG PO DAILY, (Reported) Atorvastatin Calcium (Atorvastatin Calcium) 40 Mg Tablet, 40 MG PO QHS, (Reported) Chlorthalidone (Chlorthalidone) 25 Mg Tablet, 25 MG PO DAILY, (Reported) Ezetimibe (Zetia) 10 Mg Tab, 10 MG PO QHS, (Reported) Ferrous Sulfate (Ferrous Sulfate) 325 Mg Tablet, 325 MG PO BID, (Reported) Glipizide (Glipizide ER) 5 Mg Tab.er.24, 5 MG PO DAILY, (Reported) Levofloxacin (Levofloxacin) 500 Mg Tablet, 500 MG PO DAILY@1400 Levothyroxine Sodium (Levothyroxine Sodium) 75 Mcg Tab, 75 MCG PO DAILY, (Reported) USES BRAND SYNTHROID Losartan Potassium (Losartan Potassium) 100 Mg Tab, 100 MG PO QHS, (Reported) Metformin HCl (Metformin HCl ER) 500 Mg Tab.er.24h, 500 MG PO BID, (Reported) Prednisone (Prednisone) 10 Mg Tablet, 10 MG PO DAILY, (Reported) Take 4 tabs daily x 3 days, then 3 tabs daily x 3 days, then 2 tabs daily x 3 days, then 1 tab daily x 3 days and stop Salmeterol/Fluticasone (Advair 500-50 Diskus) 28 Puff/Inhaler Aerp, 1 PUFF INH BID, (Reported) Theophylline Anhydrous (Theophylline Anhydrous) 300 Mg Tab.er.12h, 300 MG PO BID, (Reported) Tiotropium [place] (Spiriva) 18 Mcg Cap, 1 PUFF INH DAILY, (Reported) Scheduled PRN Albuterol Sulf (Albuterol Sulfate) 2.5 Mg/3 Ml Vial.neb, 1 VIAL INH Q4H PRN for SHORTNESS OF BREATH, (Reported) Albuterol Sulfate (Ventolin Hfa) 18 Gm Hfa.aer.ad, 2 PUFF INH Q4H PRN for wheezing, (Reported) Nitroglycerin (Nitroglycerin) 0.4 Mg Tab.subl, 0.4 MG SL NITRO PRN for CHEST PAIN, (Reported) Oxycodone HCl/Acetaminophen (Oxycodone-Acetaminophen 5-325) 1 Each Tablet, 1 TAB PO BID PRN for PAIN Simethicone (Simethicone) 80 Mg Tab.chew, 80 MG PO QID PRN for GAS PAIN, (Reported) Allergies Coded Allergies: Cephalosporins (Verified Allergy, Mild, RASH, 07/17/19) apixaban (Verified Allergy, Mild, RASH, 07/17/19) carisoprodol (Verified Allergy, Mild, RASH, 07/17/19) clavulanic acid (Verified Allergy, Mild, VOMITING, RASH, 01/17/20) AMOXICILLIN, PENICILLIN, AMPICILLIN OK PER PT codeine (Verified Allergy, Mild, RASH, 07/17/19) Sulfa (Sulfonamide Antibiotics) (Verified Allergy, Unknown, UNKNOWN RXN A CHILD, 07/17/19) CLAUDE TORRES MD Sep 22, 2020 17:18
== END 2020-09-21 15:07 | disposition home or self-care (01) | DRG 191 ==
LOC: M ED 12:43 → M ED INP 19:27 → ENRESERV 20:08 → M PCU 20:37
PROVIDERS: ADMIT Internal Medicine; ATTEND Internal Medicine Nephrology
DX: J44.1 Chronic obstructive pulmonary disease with (acute) exacerbation (principal); J96.11 Chronic respiratory failure with hypoxia; I50.32 Chronic diastolic (congestive) heart failure; M80.08XA Age-related osteoporosis with current pathological fracture, vertebra(e), initial encounter for fracture; E11.65 Type 2 diabetes mellitus with hyperglycemia; I11.0 Hypertensive heart disease with heart failure; E03.9 Hypothyroidism, unspecified; E78.5 Hyperlipidemia, unspecified; R91.8 Other nonspecific abnormal finding of lung field; I34.0 Nonrheumatic mitral (valve) insufficiency; M54.9 Dorsalgia, unspecified; R26.81 Unsteadiness on feet; F32.9 Major depressive disorder, single episode, unspecified; F17.200 Nicotine dependence, unspecified, uncomplicated; F41.9 Anxiety disorder, unspecified; Z66 Do not resuscitate; Z98.41 Cataract extraction status, right eye; Z98.42 Cataract extraction status, left eye; E87.6 Hypokalemia; Z79.82 Long term (current) use of aspirin; Z79.84 Long term (current) use of oral hypoglycemic drugs; Z79.899 Other long term (current) drug therapy; Z86.711 Personal history of pulmonary embolism; Z88.1 Allergy status to other antibiotic agents; Z88.2 Allergy status to sulfonamides; Z88.5 Allergy status to narcotic agent; Z88.8 Allergy status to other drugs, medicaments and biological substances; Z99.81 Dependence on supplemental oxygen; Z91.14 Patient's other noncompliance with medication regimen

== ENCOUNTER → 2020-11-01 | Outpatient (REF) | payer MEDICARE, OTHER ==
[~2020-11-01] MED LIST changes: +ASPI81TA26 PO; +ATOR40TA75 PO; +CHLO125TA PO; +FERR325T18 PO; +SIME40TA PO; +THEO300T33 PO
[2020-11-01 16:45] LABS: CHOLESTEROL RISK RATIO 4.173 (<5)
[2020-11-01 19:34] LABS: CREATININE, URINE 53.8 MG/DL; MALB URINE SIEMENS 39.8 MG/L; MAU/CREAT RATIO 73.9 MCG/MG (0.0-30.0)
== END ==
LOC: M SFHCPLAZ 11:35
DX: E11.9 Type 2 diabetes mellitus without complications (principal); E03.9 Hypothyroidism, unspecified

== ENCOUNTER 2021-02-24 09:34 | Emergency (ER) | payer MEDICARE, OTHER ==
[~2021-02-24] VITALS: Ht 157.5 cm; Wt 58.8 kg
[~2021-02-24 09:34] MED LIST changes: -PEG1POW PO; +POLY17PO18 PO; -SIME40TA PO; +SIME80CH6 PO
[2021-02-24 10:49] LABS: BASO # 0.1 10^3/uL (0.0-0.2); BASO % 0.7 % (0.0-1.0); EOS # 0.3 10^3/uL (0.0-0.5); HEMATOCRIT 44.9 % (36.0-47.0); LYMPH % 15.9 % (24.0-44.0); MEAN CORPUSCULAR HEMOGLOBIN 25.1 pg (27.0-33.0); MEAN CORPUSCULAR HGB CONC 31.2 g/dl (32.0-36.5); MEAN CORPUSCULAR VOLUME 80.6 fl (80.0-96.0); MONO % 7.9 % (2.0-8.0); NEUTROPHILS # 9.4 10^3/uL (1.5-8.5); NEUTROPHILS % 73.2 % (36.0-66.0); PLATELET COUNT, AUTOMATED 437 10^3/uL (150-450); RED BLOOD COUNT 5.57 10^6/uL (4.00-5.40); WHITE BLOOD COUNT 12.8 10^3/uL (4.0-10.0)
--- NOTE | 2021-02-24 10:53 | REP ---
INDICATION: GI bleeding COMPARISON: 09/20/2020 TECHNIQUE: Portable AP view of the chest FINDINGS: The mediastinum and cardiac silhouette are stable and within normal limits for portable technique. The lung cervantes demonstrate stable chronic interstitial changes similar to prior examination. Very subtle area of opacity in the left upper lung zone cannot be excluded. No effusion. No pneumothorax. Skeletal structures are intact. IMPRESSION: Subtle area of opacity along the periphery of the left upper lung zone. No further acute focal consolidation or effusion. <Electronically signed by Garrett Gonzales > 02/24/21 [id number]
[2021-02-24] MEDS ORDERED: ISOVUE-370 76% 100ML VIAL As Ordered ONE (10:54)
--- NOTE | 2021-02-24 12:02 | REP ---
INDICATION: gi bleeding. COMPARISON: 09/20/2020 TECHNIQUE: Axial contrast-enhanced images from the lung bases to the pubic symphysis using 100 cc Isovue 370 intravenous contrast material. Coronal and sagittal reformations obtained. This CT examination was performed using the following dose reduction techniques: Automated exposure control, adjustment of mA and/or kv according to the patient's size, and the use of iterative reconstruction technique. FINDINGS: Liver, spleen, pancreas, gallbladder, left adrenal gland and kidneys are normal. 2.7 cm right adrenal adenoma again noted. The enteric system demonstrates moderate fecal stasis along with diffuse diverticulosis. Normal terminal ileum and appendix are identified in the right lower quadrant. No obvious bowel obstruction or acute inflammatory process identified. 7 cm supraumbilical midline ventral hernia noted.. Pelvis demonstrates normal bladder and age-appropriate uterus/adnexa. No ascites. No free air. No intraperitoneal or retroperitoneal adenopathy. Abdominal aorta and vasculature demonstrate significant atherosclerotic changes similar to prior examination. Musculoskeletal structures are intact and without acute osseous abnormality. Lung bases demonstrate chronic changes along with small areas of ill-defined consolidation in the left lower lobe warranting short-term follow-up. IMPRESSION: No acute abdominopelvic pathology appreciated. 7 cm fat containing supraumbilical ventral hernia without associated acute changes. Diverticulosis without acute diverticulitis. Further chronic changes as above. <Electronically signed by Garrett Gonzales > 02/24/21 [id number]
[2021-02-24 12:13] VITALS: BP 169/75
== END 2021-02-24 13:23 | disposition home or self-care (01) ==
LOC: M ED 09:34
DX: K64.9 Unspecified hemorrhoids (principal); K64.4 Residual hemorrhoidal skin tags; K57.30 Diverticulosis of large intestine without perforation or abscess without bleeding; K42.9 Umbilical hernia without obstruction or gangrene; G89.4 Chronic pain syndrome; J44.9 Chronic obstructive pulmonary disease, unspecified; E11.9 Type 2 diabetes mellitus without complications; I10 Essential (primary) hypertension; E78.5 Hyperlipidemia, unspecified; Z86.711 Personal history of pulmonary embolism; F17.200 Nicotine dependence, unspecified, uncomplicated; Z79.84 Long term (current) use of oral hypoglycemic drugs; Z79.899 Other long term (current) drug therapy; Z88.2 Allergy status to sulfonamides; Z88.5 Allergy status to narcotic agent; Z88.1 Allergy status to other antibiotic agents; Z88.8 Allergy status to other drugs, medicaments and biological substances
CPT/HCPCS: 71045; 74177; 80047; 85025; 86850; 86900; 86901; 99284; Q9967

== ENCOUNTER → 2021-03-10 | Outpatient (CLI) | payer MEDICARE, OTHER ==
[~2021-03-10] MED LIST changes: +EZET10TA21 PO; +LEVO88TA3 PO; +med rec comment
--- NOTE | 2021-03-10 14:51 | REPPI ---
INDICATION: PNEUMONIA. COMPARISON: 02/24/2021 TECHNIQUE: PA and lateral FINDINGS: Scattered interstitial fibrotic changes again noted status quo. No acute patchy parenchymal opacities or pleural effusions have developed. The cardiomediastinal silhouette is unchanged. The heart is not enlarged. There is no significant change in appearance of the imaged osseous structures. IMPRESSION: Stable appearing chronic changes. <Electronically signed by Foster Jean > 03/10/21 [id number]
== END ==
LOC: M PLAIMG 14:10
PROVIDERS: ATTEND Internal Medicine Pulmonary Disease
DX: J18.9 Pneumonia, unspecified organism (principal); J84.10 Pulmonary fibrosis, unspecified

== ENCOUNTER 2021-03-14 22:07 | Inpatient (IN) | payer MEDICARE, OTHER ==
[~2021-03-14] VITALS: Ht 157.5 cm; Wt 68.7 kg
[~2021-03-14 22:07] MED LIST changes: -EZET10TA21 PO; -LEVO88TA3 PO; -med rec comment
[2021-03-14] MEDS ORDERED: PRED10TA2 PO (22:46)
[2021-03-14] MEDS ORDERED: LEVO500T3 PO (22:46)
[2021-03-14] MEDS ORDERED: methylPREDNISolone 125MG 2ML VIAL IV ONE (23:00)
[2021-03-14] MEDS ORDERED: COMBIVENT RESPIMAT 100-20MCG INHALER 4GM INH ONE (23:00)
[2021-03-14 23:22] LABS: ABG BASE EXCESS 2.6 (-2.0-2.0); ABG HCO3 28.5 MEQ/L (22.0-26.0); ABG O2 SATURATION 96.7 % (95.0-99.0); ABG PARTIAL PRESSURE CO2 48.9 mmHg (35.0-45.0); ABG PARTIAL PRESSURE O2 86.3 mmHg (75.0-100.0); ABG STANDARD HCO3 26.8 MEQ/L (22.0-26.0); ABG pH (ARTERIAL) 7.384 UNITS (7.350-7.450)
[2021-03-14 23:58] LABS: INR 0.9; PROTHROMBIN TIME 12.4 SECONDS (12.5-14.3)
[2021-03-14 23:59] LABS: PARTIAL THROMBOPLASTIN TIME 25.3 SECONDS (24.2-38.5)
[2021-03-15] VITALS (16 sets, daily range): BP systolic 124–204; BP diastolic 70–105
--- NOTE | 2021-03-15 00:05 | REPVR ---
PROCEDURE INFORMATION: Exam: XR Chest Exam date and time: 03/14/2021 11:42 PM Age: 80 years old Clinical indication: Chest pain TECHNIQUE: Imaging protocol: XR of the chest. Views: 1 view. COMPARISON: CR PORTABLE CHEST X-RAY 02/24/2021 10:44 AM FINDINGS: Lungs: Coarse interstitium which is similar to the prior study. There are no interval infiltrates. Pleural spaces: Unremarkable. No pleural effusion. No pneumothorax. Heart/Mediastinum: The heart and mediastinum are unchanged. Bones/joints: Unremarkable. IMPRESSION: Stable chest since 02/24/2021. No acute interval process is identified. Electronically signed by: Phillip Chen On 03/15/2021 00:05:41 AM
[2021-03-15 00:17] LABS: ALBUMIN 3.3 GM/DL (3.2-5.2); ALT/SGPT 11 U/L (12-78); BILIRUBIN,DIRECT 0.2 MG/DL (0.0-0.2); BILIRUBIN,TOTAL 0.3 MG/DL (0.2-1.0); BLOOD UREA NITROGEN 21 MG/DL (7-18); CALCIUM LEVEL 9.4 MG/DL (8.8-10.2); CARBON DIOXIDE LEVEL 30 MEQ/L (21-32); CHLORIDE LEVEL 103 MEQ/L (98-107); CK-MB VALUE MASS 1.4 NG/ML (<3.6); CPK CREATINE PHOSPHOKINASE 34 U/L (26-192); CREATININE FOR GFR 0.81 MG/DL (0.55-1.30); FREE T4 0.89 NG/DL (0.76-1.46); GLOMERULAR FILTRATION RATE > 60.0 (>39); GLUCOSE, FASTING 223 MG/DL (70-100); MB/CK RELATIVE INDEX 4.12 (< OR =4); NT-PRO BNP 1819 PG/ML (<450); POTASSIUM SERUM 3.8 MEQ/L (3.5-5.1); SODIUM LEVEL 139 MEQ/L (136-145); TROPONIN I 0.07 NG/ML (< 0.10)
[2021-03-15 00:30] LABS: BASO # 0.1 10^3/uL (0.0-0.2); BASO % 0.5 % (0.0-1.0); EOS # 0.1 10^3/uL (0.0-0.5); EOS % 0.5 % (0.0-3.0); HEMATOCRIT 44.6 % (36.0-47.0); HEMOGLOBIN 13.8 g/dl (12.0-15.5); LYMPH # 3.6 10^3/uL (1.5-5.0); LYMPH % 24.1 % (24.0-44.0); MEAN CORPUSCULAR HEMOGLOBIN 24.9 pg (27.0-33.0); MEAN CORPUSCULAR HGB CONC 30.9 g/dl (32.0-36.5); MEAN CORPUSCULAR VOLUME 80.5 fl (80.0-96.0); MONO # 1.3 10^3/uL (0.0-0.8); NEUTROPHILS # 9.6 10^3/uL (1.5-8.5); NEUTROPHILS % 64.9 % (36.0-66.0); PLATELET COUNT, AUTOMATED 468 10^3/uL (150-450); RED BLOOD COUNT 5.54 10^6/uL (4.00-5.40); WHITE BLOOD COUNT 14.8 10^3/uL (4.0-10.0)
[2021-03-15] MEDS ORDERED: ISOVUE-370 76% 100ML VIAL As Ordered ONE (01:02)
--- NOTE | 2021-03-15 02:01 | REPVR ---
PROCEDURE INFORMATION: Exam: CTA Chest With Contrast Exam date and time: 03/15/2021 12:51 AM Age: 80 years old Clinical indication: Chest pain; Type not specified; Additional info: Chest pain, SOB TECHNIQUE: Imaging protocol: Computed tomographic angiography of the chest with contrast. 3D rendering (Not supervised by radiologist): MIP and/or 3D reconstructed images were created by the technologist. Radiation optimization: All CT scans at this facility use at least one of these dose optimization techniques: automated exposure control; mA and/or kV adjustment per patient size (includes targeted exams where dose is matched to clinical indication); or iterative reconstruction. Contrast material: ISO; Contrast volume: 75 ml; Contrast route: INTRAVENOUS (IV); COMPARISON: CT ANGIO CHEST 01/17/2020 11:24 PM FINDINGS: Pulmonary arteries: The main pulmonary artery measures 24 mm. No pulmonary embolism is identified. Aorta: The ascending thoracic aorta measures 31 mm. Lungs: Minimal diffuse bullous change with coarse interstitium and minimal scattered pulmonary infiltrates. There is focal consolidation or mass in the anterolateral left upper lobe with irregular margins and extends from the pleural surface with stranding toward the anterior aspect of the right hilum and now measures approximately 15 x 35 x 14 mm and is increased since the prior study. There is some associated adjacent infiltrate along the medial aspect. There is an additional rounded area of mass or focal consolidation in the anterior left upper lobe which is increased since the prior study and measures approximately 1.0 x 1.6 x 1.4 cm and demonstrates lobular and irregular margins. There is a calcified granuloma in the medial right upper lobe anteriorly. Pleural spaces: Unremarkable. No pneumothorax. No pleural effusion. Heart: Unremarkable. No cardiomegaly. No pericardial effusion. Lymph nodes: Unremarkable. No enlarged lymph nodes. Spleen: There is a splenic calcification. Adrenal glands: There is a right adrenal nodule measuring 2.4 x 1.7 x 2.7 cm with a Hounsfield measurement of -2 consistent with an adenoma and is unchanged from the prior study. Bones/joints: Unremarkable. No acute fracture. Soft tissues: Unremarkable. IMPRESSION: 1. Minimal diffuse bullous change with coarse interstitium and minimal scattered pulmonary infiltrates which is similar to the prior study of 01/17/2020. 2. There are 2 focal areas of consolidation or mass in the left upper lobe which are increased since the prior study and viewed with some suspicion. Highly suspicious nodule(s). Consider PET/CT, or tissue sampling.(Reference: Rani) 3. Old granulomatous disease of the chest and spleen. 4. Right adrenal nodule consistent with adenoma which is unchanged from the prior study. 5. Otherwise negative CTA chest. No pulmonary embolism is identified. REFERENCES: Rani Henriquez, et al. Guidelines for Management of Incidental Pulmonary Nodules Detected on CT Images: From the Fleischner Society 2017. Radiology. 2017;284(1):228-243. Electronically signed by: Phillip Chen On 03/15/2021 02:01:50 AM
[2021-03-15] MEDS ORDERED: hydrALAZINE 20MG/ML 1ML VIAL (J0360 PER 20MG) IV STA (02:28)
[2021-03-15] MEDS ORDERED: LEVO88TA3 PO (02:58)
[2021-03-15] MEDS ORDERED: EZET10TA21 PO (03:01)
[2021-03-15] MEDS ORDERED: METF10004 PO (03:01)
[2021-03-15] MEDS ORDERED: ASPI81TA26 PO (03:01)
[2021-03-15] MEDS ORDERED: ATOR40TA75 PO (03:05)
[2021-03-15] MEDS ORDERED: med rec comment (03:09)
[2021-03-15] MEDS ORDERED: methylPREDNISolone 125MG 2ML VIAL IV STA (03:17)
[2021-03-15] MEDS ORDERED: MAALOX 30 ML SUSP *UDC PO PRN (03:20)
[2021-03-15] MEDS ORDERED: DIGOXIN 0.125 MG TAB PO ONE (03:20)
[2021-03-15] MEDS ORDERED: ALBUTEROL SULFATE 2.5 MG/0.5 ML INH NEB SOLN NEB PRN (03:20)
[2021-03-15] MEDS ORDERED: MOM 30ML SUSPENSION UDC PO PRN (03:20)
[2021-03-15] MEDS ORDERED: ACETAMINOPHEN TAB 650MG DOSE (2X325MG) PO PRN (03:20)
--- NOTE | 2021-03-15 03:29 | HPEPDOC ---
[facility] Medical History & Physical Date of Admission Mar 15, 2021 Date of Service: Mar 15, 2021 Primary Care Physician: ETHAN DELGADO MD Attending Physician: GALLO HAAS MD History and Physical TIME OF SERVICE: 250AM CHIEF COMPLAINT: dyspnea HISTORY OF PRESENT ILLNESS: This 80 yr old F was diagnosed w PNA on Wednesday and put on Levaquin, nevertheless her dyspnea became worse; she has also had a productive cough, subjective fever/chills and left sided chest pain. She denies having lower extremity edema and or palpitations. During transport to the ER she had a run of SVT that converted w adenosine. REVIEW OF SYSTEMS: 12 point review of systems negative except as listed in HPI PAST MEDICAL/ SURGICAL HISTORY: COPD Chronic O2 dependent respiratory failure Chronic Diastolic CHF / Grade 1 DD NIDDM Remote hx of Pulmonary embolism (diagnosed in June 2018 based on previous notes she stopped taking apixaban on her own bc of "itchy skin" and GI bleed, but today she reported she stopped taking the med when the script ran out) Chronic Hypertension Hypothyroidism Chronic back and shoulder pain Dyslipidemia Hearing loss Osteoporosis based on the presence of a T4 wedge compression fracture on CT of the chest Moderate MVR Unsteady gait inconsistently uses walker Depression /Anxiety Chronic adrenal nodule s/p Partial thyroidectomy s/p tonsillectomy s/p umbilical hernia repair s/p b/l cataract removal SOCIAL HISTORY: + tobacco / lives w and grand-daughter FAMILY HISTORY: Lung Cancer (in siblings), Diabetes (father), Heart disease (mother), Hypertension (mother) ALLERGIES: Please see below. HOME MEDICATIONS: Please see below PHYSICAL EXAMINATION: Vital Signs Date Time Temp Pulse Resp B/P (MAP) Pulse Ox O2 Delivery O2 Flow Rate FiO2 03/14/21 22:10 99.7 112 22 215/106 97 Nasal Cannula 1.0 GENERAL APPEARANCE: slim build / well developed / NAD HEENT: NC in place / MMM&P CARDIOVASCULAR: RRR / NMRG LUNGS: is using accessory muscles to breath / has expiratory wheezing / has difficulties talking full sentences w/o stopping to take a breath ABDOMEN: flat /soft &NT MUSCULOSKELETAL: NCAT / FRANCISCO x 4 extremities and back INTEGUMENT: not flushed or diaphoretic NEUROLOGICAL: CN 2-12 intact speech not dysarthric PSYCHIATRIC: A&O / able to understand and follow all commands LABORATORY DATA: 03/14/21 23:25 Blood Gas Bicarbonate Standard 26.8H, Arterial Blood pH 7.384, Arterial Blood Partial Pressure CO2 48.9H, Arterial Blood Partial Pressure O2 86.3, Arterial Blood Total CO2 30.0, Arterial Blood HCO3 28.5H, Arterial Blood Base Excess 2.6H, Arterial Blood Oxygen Saturation 96.7 Immature Granulocyte % (Auto) 1.0, Neutrophils (%) (Auto) 64.9, Lymphocytes (%) (Auto) 24.1, Monocytes (%) (Auto) 9.0H, Eosinophils (%) (Auto) 0.5, Basophils (%) (Auto) 0.5, Neutrophils # (Auto) 9.6H, Lymphocytes # (Auto) 3.6, Monocytes # (Auto) 1.3H, Eosinophils # (Auto) 0.1, Basophils # (Auto) 0.1, Nucleated Red Blood Cells % (auto) 0.0, Prothrombin Time 12.4, Prothromb Time International Ratio 0.90, Activated Partial Throm boplast Time 25.3, Anion Gap 6L, Glomerular Filtration Rate > 60.0, Calcium Level 9.4, Total Bilirubin 0.3, Direct Bilirubin 0.2, Aspartate Amino Transf (AST/SGOT) < 3L, Alanine Aminotransferase (ALT/SGPT) 11L, Alkaline Phosphatase 86, Total Creatine Kinase 34, Creatine Kinase MB 1.4, Creatine Kinase MB Relative Index 4.12H, Troponin I 0.07, FG-Vaa-P-Type Natriuretic Peptide 1819H, Total Protein 7.0, Albumin 3.3, Albumin/Globulin Ratio 0.9L, Thyroid Stimulating Hormone (TSH) 10.200H, Free Thyroxine 0.89 IMAGING: Chest xray IMPRESSION: Stable chest since 02/24/2021. No acute interval process is identified. CTA chest IMPRESSION: 1. Minimal diffuse bullous change with coarse in terstitium and minimal scattered pulmonary infiltrates which is similar to the prior study of 01/17/2020. 2. There are 2 focal areas of consolidation or mass in the left upper lobe which are increased since the prior study and viewed with some suspicion. Highly suspicious nodule(s). Consider PET/CT, or tissue sampling.(Reference: Rani) 3. Old granulomatous disease of the chest and spleen. 4. Right adrenal nodule consistent with adenoma which is unchanged from the prior study. 5. Otherwise negative CTA chest. No pulmonary embolism is identified. MICROBIOLOGY: respiratory panel negative ASSESSMENT: Ms. Cai is a 79-year-old smoker with a hx of of COPD, Chronic O2 dependent respiratory failure, Chronic Diastolic CHF, HTN, remote hx of PE (not compliant w AC), NIDDM, Hypothyroidism, Osteoporosis, Unsteady gait, Anxiety/depression, and Hearing loss who presented w c/o dyspnea and will be admitted for HTN Urgency and acute COPD. PLAN: 1. SVT Resolved after adenosine Sent copy of EKGs to who felt that the SVT ma have been triggered by stress due to acute COPD Plan: admit to ICU /telemetry / f/u serial trops & Echo / Digoxin to help prevent reoccurrence / if it reoccurs the day time team may consider officially consulting 2 HTN Urgency EKG showed mild ST depression in V4-V6 but the trop was wnl Plan: diltiazem drip / losartan QHS 3 Acute COPD Plan: supplemental O2 / continuous pulse oximetry / Dunebs Q6H, Albuterol Q1HP/ solumedrol now / Prednisone + PPI / c/w Spiriva and theophylline 4. Chronic O2 Dependent Respiratory Failure Plan: supplemental O2 5. SIRS vs Sepsis Plan: f/u lactic acid & mendoza cx results 6. ANTONELLA Mass She received Levaquin for a few days for PNA Radiologists recommends PET /CT for possible malignancy Plan: will hold of abx for now and ask the day time team to consider reaching out to Pulm to confirm whether we should resume abx 7. Chronic Diastolic CHF Plan: f/u Is and Os and daily weights 8. NIDDM Plan: diabetic diet / f/u accuchecks & A1C / hypoglycemia protocol / sliding scale insulin / hold oral anti-glycemics 9. Hypothyroidism Plan: levothyroxine 10. Dyslipidemia Plan: c/w Zetia and Statin DVT px w lovenox Dispo: home after at least 2 midnights stay Home Medications Scheduled Aspirin (Aspirin EC) 81 Mg Tablet., 81 MG PO DAILY Atorvastatin Calcium (Atorvastatin Calcium) 40 Mg Tablet, 40 MG PO DAILY Ezetimibe (Ezetimibe) 10 Mg Tablet, 10 MG PO DAILY Levofloxacin (Levofloxacin) 500 Mg Tablet, 500 MG PO DAILY Levothyroxine Sodium (Levothyroxine Sodium) 88 Mcg Tablet, 88 MCG PO QAM pt takes brand name synthroid Losartan Potassium (Losartan Potassium) 100 Mg Tab, 100 MG PO QHS Metformin HCl (Metformin HCl) 1,000 Mg Tablet, 1,000 MG PO BID Nystatin (Nystatin Oral Susp) 100,000 Unit/1 Ml Oral.susp, 5 ML PO QID Prednisone (Prednisone) 20 Mg Tablet, 60 MG PO DAILY Prednisone taper: 60 mg Po x 3 days, 40 mg Po x 3 days, then 20 mg Po x 1 day Salmeterol/Fluticasone (Advair 500-50 Diskus) 28 Puff/Inhaler Aerp, 1 PUFF INH BID Tiotropium [place] (Spiriva) 18 Mcg Cap, 1 PUFF INH DAILY Scheduled PRN Albuterol Sulf (Albuterol Sulfate) 2.5 Mg/3 Ml Vial.neb, 1 VIAL INH Q4H PRN for SHORTNESS OF BREATH Albuterol Sulfate (Ventolin Hfa) 18 Gm Hfa.aer.ad, 2 PUFF INH Q4H PRN for wheezing Nitroglycerin (Nitroglycerin) 0.4 Mg Tab.subl, 0.4 MG SL NITRO PRN for CHEST PAIN Oxycodone HCl/Acetaminophen (Oxycodone-Acetaminophen 5-325) 1 Each Tablet, 1 TAB PO BID PRN for PAIN Allergies Coded Allergies: Cephalosporins (Verified Allergy, Mild, RASH, 07/17/19) apixaban (Verified Allergy, Mild, RASH, 07/17/19) carisoprodol (Verified Allergy, Mild, RASH, 07/17/19) clavulanic acid (Verified Allergy, Mild, VOMITING, RASH, 01/17/20) AMOXICILLIN, PENICILLIN, AMPICILLIN OK PER PT codeine (Verified Allergy, Mild, RASH, 07/17/19) Sulfa (Sulfonamide Antibiotics) (Verified Allergy, Unknown, UNKNOWN RXN A CHILD, 07/17/19) A-FIB/CHADSVASC A-FIB History Current/History of A-Fib/PAF?: No Current PO Anticoag Therapy: No GALLO HAAS MD Mar 15, 2021 03:29
[2021-03-15] MEDS ORDERED: diltiaZEM 125 MG in NS 100 ML IV SCH ×2 (04:00→07:45)
[2021-03-15] MEDS: PERCOCET 5MG/325MG TAB PO PRN ×2 (05:20→11:46)
[2021-03-15] MEDS: LEVOTHYROXINE 88MCG TABLET (0.088 MG) PO SCH (06:00)
[2021-03-15] MEDS ORDERED: SYNTHROID PO SCH (06:00)
[2021-03-15] MEDS ORDERED: GLUCOSE 4GM CHEW TABLET PO PRN (06:55)
[2021-03-15] MEDS ORDERED: DEXTROSE 50% 50 ML SYRINGE IV PRN (06:55)
[2021-03-15] MEDS ORDERED: GLUCAGON INJ 1MG VIAL SC PRN (06:55)
[2021-03-15] MEDS ORDERED: LABETALOL 100MG/20ML VIAL IV PRN (07:45)
[2021-03-15 08:12] LABS: HEMATOCRIT 43.6 % (36.0-47.0); HEMOGLOBIN 13.5 g/dl (12.0-15.5); MEAN CORPUSCULAR VOLUME 80.7 fl (80.0-96.0); PLATELET COUNT, AUTOMATED 448 10^3/uL (150-450); WHITE BLOOD COUNT 11.4 10^3/uL (4.0-10.0)
[2021-03-15] MEDS: TIOTROPIUM INHALER/CAPSULE (SPIRIVA) INH SCH (08:23)
[2021-03-15] MEDS: IPRATROPIUM 0.5MG/ALBUTEROL 2.5MG INH SOL UD 3ML (DUONEB) NEB SCH ×3 (08:23→20:28)
[2021-03-15 08:30] LABS: BLOOD UREA NITROGEN 24 MG/DL (7-18); CALCIUM LEVEL 8.7 MG/DL (8.8-10.2); CARBON DIOXIDE LEVEL 30 MEQ/L (21-32); CHLORIDE LEVEL 101 MEQ/L (98-107); CREATININE FOR GFR 0.93 MG/DL (0.55-1.30); GLOMERULAR FILTRATION RATE > 60.0 (>39); GLUCOSE, FASTING 388 MG/DL (70-100); POTASSIUM SERUM 4.8 MEQ/L (3.5-5.1); SODIUM LEVEL 139 MEQ/L (136-145); TROPONIN I 0.07 NG/ML (< 0.10)
[2021-03-15] MEDS: NICOTINE 21MG/24HR 1 EA TRANSDERMAL TD SCH (09:00)
[2021-03-15] MEDS ORDERED: predniSONE 20 MG TAB PO SCH (09:00)
[2021-03-15] MEDS: ENOXAPARIN 40MG/0.4ML SYRINGE (J1650 PER 10MG) SC SCH (09:26)
[2021-03-15] MEDS: ATORVASTATIN 20 MG TAB PO SCH (09:26)
[2021-03-15] MEDS: PANTOPRAZOLE 40MG TAB (PROTONIX) PO SCH (09:27)
[2021-03-15] MEDS: EZETIMIBE 10 MG TAB (ZETIA) PO SCH (09:27)
[2021-03-15] MEDS: THEOPHYLLINE (THEO-24) 100MG SR **CAPSULE PO SCH ×2 (09:28→21:25)
[2021-03-15] MEDS: HumaLOG INSULIN (NovoLOG) PER UNIT SC SCH ×4 (09:29→21:24)
[2021-03-15] MEDS: PIPERACILLIN/TAZOBACTAM SOD 4.5 GM in D5W MINI-BAG PLUS 50 ML IV SCH ×3 (09:31→21:28)
[2021-03-15] MEDS: ASPIRIN 81MG ENTERIC TABLET PO SCH (09:34)
--- NOTE | 2021-03-15 09:41 | ECGEPIP ---
[facility] - ED Test Date: 2021-03-14 Pat Name: HERB MAYA Department: Room: [place] [address] Gender: Female Quantitative Software Engineer: Mitra MCPHERSON : 1940 Requested By: LEIA Willard Order Number: [id number] Reading MD: Chuy Elizondo Measurements Intervals [place] Rate: 113 P: 74 WI: 140 QRS: 70 QRSD: 92 T: 118 QT: 336 QTc: 460 Interpretive Statements Sinus tachycardia Possible Left atrial enlargement POOR R WAVE PROGRESSION Left ventricular hypertrophy with repolarization abnormality RATE CHANGE COMPARED TO 09/20/20 Electronically Signed on 03-15-2021 9:40:55 EDT by Chuy Elizondo
[2021-03-15 10:08] LABS: HEMOGLOBIN A1c 7.9 %
[2021-03-15] MEDS ORDERED: NS 500 ML IV ONE ×2 (12:45→19:00)
[2021-03-15] MEDS: LEVEMIR (INSULIN DETEMIR) 1 UNITS/0.01ML SC SCH (13:07)
[2021-03-15] MEDS: methylPREDNISolone 125MG 2ML VIAL IV SCH (17:34)
[2021-03-15] MEDS ORDERED: NS 1,000 ML IV ONE (18:15)
[2021-03-15] MEDS ORDERED: NS 0.45% 1,000 ML IV SCH (20:00)
--- NOTE | 2021-03-15 21:20 | REPVR ---
PROCEDURE INFORMATION: Exam: US Retroperitoneal Limited, Kidneys Exam date and time: 03/15/2021 8:44 PM Age: 80 years old Clinical indication: Other: Oliguria TECHNIQUE: Imaging protocol: Real-time ultrasound of the retroperitoneum with image documentation. Examination was focused on the kidneys. COMPARISON: RENAL US 08/02/2018 2:51 PM FINDINGS: Right kidney: Right kidney measures 11.3 x 5.8 x 4 5 cm. Left kidney: Left kidney measures 11.2 x 4 x 4.8 cm. Bladder: Visualized urinary bladder unremarkable. Ureteral jets not visualized. IMPRESSION: Normal study. Electronically signed by: Ric Grubbs On 03/15/2021 21:21:14 PM
[2021-03-15] MEDS: LOSARTAN 50MG TABLET PO SCH (21:25)
--- NOTE | 2021-03-15 23:15 | ECGEPIP ---
[facility] Test Date: 2021-03-15 Pat Name: HERB MAYA Department: Room: [place] [address] Gender: Female Helpdesk Manager: ANA LAURA : 1940 Requested By: GALLO HAAS Order Number: [id number] Reading MD: Chava Duke Measurements Intervals [place] Rate: 70 P: 69 ID: [id number] QRS: 54 QRSD: 94 T: 69 QT: 444 QTc: 479 Interpretive Statements Normal sinus rhythm Minimal voltage criteria for LVH, may be normal variant ( Sokolow-Saldaña ) Last tracing on 03/14/21 at 22:22. Heart rate was [address]/T changes were p present Electronically Signed on 03-15-2021 23:14:36 EDT by Chava Duke
[2021-03-16] VITALS (16 sets, daily range): BP systolic 148–210; BP diastolic 67–90
[2021-03-16] MEDS: IPRATROPIUM 0.5MG/ALBUTEROL 2.5MG INH SOL UD 3ML (DUONEB) NEB SCH ×4 (01:17→20:10)
[2021-03-16] MEDS: methylPREDNISolone 125MG 2ML VIAL IV SCH ×3 (01:19→18:36)
[2021-03-16] MEDS: PERCOCET 5MG/325MG TAB PO PRN ×2 (01:26→14:43)
[2021-03-16] MEDS ORDERED: amLODIPine 5 MG TAB PO SCH (02:40)
[2021-03-16] MEDS: PIPERACILLIN/TAZOBACTAM SOD 4.5 GM in D5W MINI-BAG PLUS 50 ML IV SCH ×4 (03:19→20:50)
[2021-03-16 04:36] LABS: HEMATOCRIT 38.2 % (36.0-47.0); HEMOGLOBIN 11.7 g/dl (12.0-15.5); MEAN CORPUSCULAR HEMOGLOBIN 24.7 pg (27.0-33.0); MEAN CORPUSCULAR HGB CONC 30.6 g/dl (32.0-36.5); MEAN CORPUSCULAR VOLUME 80.6 fl (80.0-96.0); PLATELET COUNT, AUTOMATED 395 10^3/uL (150-450); RED BLOOD COUNT 4.74 10^6/uL (4.00-5.40); WHITE BLOOD COUNT 10.7 10^3/uL (4.0-10.0)
[2021-03-16 04:59] LABS: CALCIUM LEVEL 8.8 MG/DL (8.8-10.2); CREATININE FOR GFR 0.97 MG/DL (0.55-1.30); GLOMERULAR FILTRATION RATE 59.1 (>39); POTASSIUM SERUM 4.3 MEQ/L (3.5-5.1)
[2021-03-16] MEDS: LEVOTHYROXINE 88MCG TABLET (0.088 MG) PO SCH (06:07)
[2021-03-16] MEDS: HumaLOG INSULIN (NovoLOG) PER UNIT SC SCH ×4 (07:44→20:49)
--- NOTE | 2021-03-16 08:22 | REP ---
INDICATION: suspect pulmonary edema. COMPARISON: Comparison chest x-ray March 14, 2021 and February 24, 2021. TECHNIQUE: Portable upright AP chest radiograph. FINDINGS: The lungs are symmetrically aerated and free of infiltrate. Heart is mildly enlarged unchanged. Pulmonary vasculature is cephalized. There is no evidence of pleural effusion or shola pulmonary edema. EKG monitoring electrodes are seen.. IMPRESSION: Cardiomegaly with cephalization of the pulmonary vasculature.. <Electronically signed by Lobo Guerrero > 03/16/21 0810
[2021-03-16] MEDS: TIOTROPIUM INHALER/CAPSULE (SPIRIVA) INH SCH (08:29)
[2021-03-16] MEDS: NICOTINE 21MG/24HR 1 EA TRANSDERMAL TD SCH (09:00)
[2021-03-16] MEDS: ATORVASTATIN 20 MG TAB PO SCH (09:12)
[2021-03-16] MEDS: diltiaZEM **CD** 180 MG CAP PO SCH (09:13)
[2021-03-16] MEDS: PANTOPRAZOLE 40MG TAB (PROTONIX) PO SCH (09:13)
[2021-03-16] MEDS: ASPIRIN 81MG ENTERIC TABLET PO SCH (09:13)
[2021-03-16] MEDS: THEOPHYLLINE (THEO-24) 100MG SR **CAPSULE PO SCH (09:14)
[2021-03-16] MEDS: EZETIMIBE 10 MG TAB (ZETIA) PO SCH (09:14)
[2021-03-16] MEDS: LEVEMIR (INSULIN DETEMIR) 1 UNITS/0.01ML SC SCH (09:15)
[2021-03-16] MEDS: FUROSEMIDE 40MG/4ML VIAL (J1940) IV SCH ×2 (09:15→18:36)
[2021-03-16] MEDS: ENOXAPARIN 40MG/0.4ML SYRINGE (J1650 PER 10MG) SC SCH (09:15)
[2021-03-16 10:32] LABS: THEOPHYLLINE LEVEL 2.2 UG/ML (10.0-20.0)
--- NOTE | 2021-03-16 12:08 | IPNPDOC ---
Date Seen The patient was seen on 03/16/21. Progress Note SUBJECTIVE: Patient was seen and examined at bedside this morning. She continues to be mildly short of breath and was hypertensive urgency overnight. She continues to have audible wheezing is requiring 2 L of oxygen via nasal cannula to maintain saturation. She is concerned because her home as she cares for her requires surgical. At this time. She denies any chest pain, palpitations, fevers, chills, nausea, vomiting, diarrhea, lower extremity edema. OBJECTIVE PHYSICAL EXAMINATION: VITAL SIGNS: please see below General: NAD, comfortable HEENT: PERRLA, EOMI, sclerae clear Neck: supple, normal ROM, no JVD Respiratory: Fair entry bilaterally. No audible wheeze. Bilateral lung cervantes. Also crackles at lung bases. No rhonchi, no rales. CVS: RRR, normal S1, S2, no murmurs Abdo: soft, no masses, no hepatosplenomegaly, BS+, no rebound tenderness Extremities: Plus edema bilaterally MSK: no joint deformities, normal ROM Neuro: no focal neuro deficits, moving all 4 extremities, CN2-12 intact. Strength 5/5 in all 4 extremities. No nystagmus. Psych: calm, cooperative, AAO x 3 LABORATORY DATA, IMAGING STUDIES, MICROBIOLOGY: Please see below. Echocardiogram: Cardiogram report given by Dr. Pederson preliminarily on 03/15/21. abnormalities noted. Mild pulmonary hypertension suspected. Vital report pending in VIEO. DVT prophylaxis ordered?: Lovenox 40 mg subcutaneous daily. ASSESSMENT AND PLAN: Mrs. Cai is a 80-year-old female with a history of chronic oxygen-dependent respiratory failure, COPD, chronic diastolic congestive heart failure, now has insulin-dependent diabetes, history of PE, hypertension, admitted to hospital for management of hypertensive urgency as well as acute COPD exacerbation. PROBLEMS: #. SVT - Resolved after adenosine - on admission, Dr. Pederson reviewed EKG, felt SVT was triggered by acute COPD exacerbation - given one dose of digoxin - presently on cardizem 180 mg CD po daily - continue continues cardiac monitoring - prelim echo report did not show critical abnormality per Dr. Pederson - final echo report pending in IM5 #. HTN Urgency - EKG showed mild ST depression in V4-V6 but the trop was wnl - Trop negative x 3 - HTN worsened due to IVF, IVF stopped - BP improved on cardizem PO - started IV diuresis with lasix 40 mg q8h #. Acute COPD exacerbation - presently requires 2L O2. At baseline - diffuse wheezing noted in bilateral lung cervantes - c/w duonebs - solumedrol 60 mg q8h IV - pharmaceutical physician consult placed with Dr. Ceballos. - c/w spirive. holding theophylline #. Chronic O2 Dependent Respiratory Failure - supplemental O2 #.SIRS - 2/2 pna - LA elevated despite 1L NS, IVF held due to suspected worsening pulmonary edema - BP elevated - c/w zosyn # ANTONELLA Mass - She received Levaquin for a few days for PNA - presently on zosyn - Radiologists recommends PET /CT for possible malignancy - pulmonology Dr. Ceballos consulted. - patient verbalized to me she wants to known etiology of mass with tissue dx #Chronic Diastolic CHF - lasix IV q8h - final echo report pending #. NIDDM - ISS, FSBS AC and HS - hypoglycemic precautions #. Hypothyroidism - c/w levothyroxine #. Dyslipidemia - c/w Zetia and Statin VS, I&O, 24H, Fishbone Vital Signs/I&O Vital Signs Date Time Temp Pulse Resp B/P (MAP) Pulse Ox O2 Delivery O2 Flow Rate FiO2 03/16/21 11:15 98.3 84 22 172/72 (105) 95 Room Air 03/16/21 08:00 2.0 I&O- Last 24 Hours up to 6 AM 03/16/21 06:00 Intake Total 3035 ml Output Total 400 ml Balance 2635 ml Laboratory Data 24H LABS Laboratory Tests 2 03/15/21 16:37: Lactic Acid Level 3.7*H 03/15/21 17:21: Bedside Glucose (Misc Panel) 286H 03/15/21 20:00: Bedside Glucose (Misc Panel) 304H 03/15/21 21:06: Bedside Glucose (Misc Panel) 290H 03/15/21 21:40: Lactic Acid Followup at 4 Hours 2.6*H 03/16/21 04:21: Nucleated Red Blood Cells % (auto) 0.0, Anion Gap 6L, Glomerular Filtration Rate 59.1, Calcium Level 8.8, KP-Aoc-Z-Type Natriuretic Peptide 1243H, Theophylline Level 2.2L 03/16/21 07:37: Bedside Glucose (Misc Panel) 309H 03/16/21 08:23: Lactic Acid Level 3.0*H 03/16/21 11:11: Bedside Glucose (Misc Panel) 373H CBC/BMP Laboratory Tests 03/16/21 04:21 Microbiology Microbiology 03/15/21 Blood Culture - Preliminary, Resulted No growth after 24 hours . All specim... 03/15/21 Blood Culture - Preliminary, Resulted 03/14/21 Respiratory Virus Panel (PCR) (LANA) - Final, Complete ANGELA GARIBAY MD Mar 16, 2021 12:08
[2021-03-16] MEDS ORDERED: DIGOXIN 0.125 MG TAB PO SCH (12:20)
--- NOTE | 2021-03-16 16:22 | CR ---
PULMONARY CONSULTATION DATE: 03/16/2021 CHIEF COMPLAINT: Shortness of breath. HISTORY OF PRESENT ILLNESS: Miss Cai is a 80-year-old female with a past medical history of COPD with hypoxemic respiratory failure, ongoing nicotine dependence, diastolic CHF, hypertension, hypothyroidism, hyperlipidemia, diabetes, history of mitral valve regurgitation, who presented with complaints of worsening shortness of breath and cough. The patient had been seen as an outpatient recently by her cage unloader where she had reported symptoms then of worsening shortness of breath and cough. She also started developing some pleuritic chest pain on the left side and occasionally in her mid-back which was worse with coughing and deep inspiration. The patient had even cut her cigarettes to less than a pack a day with her shortness of breath and the pain. In the office, the patient and her cage unloader had discussed the possibility of going to the hospital but patient was somewhat resistant. She did have chest x-ray ordered as well as empiric antibiotics and prednisone. The patient was instructed to discontinue her theophylline while taking antibiotics and she was compliant with this. Despite the prednisone and levofloxacin, she however noticed worsening shortness of breath and so had called EMS. She did also continue to report cough with mucus that she states was difficult to expectorate. Her mucus was clear, yellow in color with no hemoptysis. She also had reported subjective chills as well as the continued chest pain. She did also notice some slight increased lower extremity edema in particular in the past few days since being in the hospital. She otherwise has not had any nausea or vomiting. She does report some shakiness as well in terms of her gait instability currently. Of note during transport to the ED, she was noted to have a run of SVT which converted with adenosine. In the hospital, the patient was admitted to the ICU given her episode of SVT. She was also noted to be significantly hypertensive and was started on diltiazem. She was also given Solu-Medrol and IV fluids for concern of possible sepsis, for possible pneumonia. The patient was on Zosyn as well for broad-spectrum antibiotics. Pulmonary was consulted as she was noted to continue to require oxygen supplementation above her baseline as well as with continued shortness of breath and wheezing today. At home, she is on two liters nasal cannula oxygen at night and generally does not wear it during the day. Here, she has been requiring anywhere from 1 to 2 liters nasal cannula during the day. MEDICAL AND SURGICAL HISTORY: 1. COPD. 2. Ongoing nicotine dependence. 3. Chronic hypoxemic respiratory failure. 4. Diastolic CHF. 5. Moderate mitral valve regurgitation. 6. Diabetes. 7. Remote history of PE, not on anticoagulation. 8. Hypertension. 9. Hypothyroidism. 10. Chronic back and shoulder pain. 11. Hyperlipidemia. 12. Hearing loss. 13. Osteoporosis. 14. Depression/anxiety. 15. Partial thyroidectomy. 16. Tonsillectomy. 17. Umbilical hernia repair. 18. Cataract removal. SOCIAL HISTORY: The patient is actively smoking at least a pack a day and sometimes more. Recently had cut back to slightly less than a pack a day. She lives at home with her and granddaughter. FAMILY HISTORY: A family history of lung cancer in siblings. Father had a history of diabetes, her mother with a history of heart disease and hypertensions. HOME MEDICATIONS: 1. Aspirin. 2. Atorvastatin acetonide 3. Levaquin. 4. Levothyroxine 5. Losartan. 6. Metformin. 7. Prednisone. 8. Advair. 9. Spiriva. 10. Theophylline. 11. Albuterol p.r.n. 12. Oxycodone/acetaminophen p.r.n. 13. Nitroglycerine p.r.n. ALLERGIES: 1. CEPHALOSPORINS. 2. APIXABAN. 3. carisoprodol. 4. clavulanic acid. 5. codeine 6. SULFA. PHYSICAL EXAMINATION: Vitals: Temperature 97.1, pulse 58, respirations 22, blood pressure 164/70. O2 sat 97% on one liter nasal cannula, in 2.4 liters, out 400 mL. General: The patient is an elderly, frail female, is sitting in bed and is awake, alert and oriented x3. She is able to speak in mostly full sentences but does have some accessory muscle use with respirations. HEENT: Normocephalic, atraumatic. The patient has surgical pupils bilaterally. Moist mucous membranes noted. Neck: Supple. Trachea is midline. Cardiac: Somewhat distant heart sounds with regular rate and rhythm, normal S-1, S-2. Faint murmur auscultated. Pulmonary: There are decreased breath sounds bilaterally with faint expiratory wheeze as well as crackles at the bases, left slightly more than right. Abdomen: Soft, nontender, nondistended, normoactive bowels. Extremities: There is very trace pitting lower extremity edema bilaterally. LABORATORY DATA: WBC 10.7, hemoglobin 11.7, platelets are 395. Chemistries: Sodium is 139, potassium 4.3. Chloride is 103. Bicarb is 32, BUN 28, creatinine 0.97, glucose 277. Calcium is 8.8. Lactic acid was 2.7, repeat to 2.6. BNP was 1819 on 03/14. ABG on 03/14: pH 7.384, pCO2 of 48.9, pO2 of 86.3. IMAGING: CT angio on admission showed evidence of PEs. There is apical scarring and emphysematous changes bilaterally, more pronounced in the upper lobes. There is a nodule in the left upper lobe abutting the pleura which appears spiculated and is increasing in size compared to previous CT from 01/17/20 with some linear extension and nodularity extending toward the hilum. There is also another spiculated nodule on the left upper lobe more anteromedially which is possibly cavitary or with a central airway. There are other scattered tree-in-bud opacities noted in the left upper lobe and in the lingula. There is some mild tree-in-bud nodularity in the right middle lobe and a more focal area of reticulonodular opacity in the right lower lobe posteriorly. There is also some scattered nodularity in the lower lobes bilaterally. There is a calcified granuloma and evidence of previous granulomatous disease process. There is right adrenal adenoma, unchanged. Repeat chest x-ray 03/16/21 shows hyperinflation and cardiomegaly as well as cephalization of the pulmonary vasculature, suggestive of pulmonary vascular congestion. ASSESSMENT AND PLAN: Mrs. Cai is a 80-year-old female with a past medical history of COPD with chronic hypoxemic respiratory failure and ongoing nicotine dependence, history of diastolic CHF and mitral valve regurgitation, hypertension, hypothyroidism and hyperlipidemia, who presented with worsening shortness of breath and dyspnea. The patient also reportedly had an episode of SVT prior to presentation to the ED. The patient was admitted for acute COPD exacerbation with possible pneumonia. She was started on broad-spectrum antibiotics and given Solu-Medrol as well as IV fluid boluses for possible sepsis. She did have mildly elevated lactic acidosis as well on admission. The patient also had significantly elevated blood pressure with systolics at times up into the 200. She was given diltiazem for her blood pressure. Pulmonary was consulted as patient continues to report shortness of breath and continues to have wheezing and some increased oxygen requirements from her baseline. Acute COPD exacerbation with possible pneumonia. Her CT, chest initially did show some scattered tree-in-bud and particulate nodularity would be suggestive of an acute infectious process. The patient also reports some increasing cough as well as subjective chills at home. Her lactic acidosis, however, is suspected to be less likely in the setting of sepsis but more in the setting of work of breathing with here severe obstructive airways disease. Her lactic acidosis may also be in the setting of suspected chronic pulmonary hypertension given her chronic hypoxemic respiratory failure. She otherwise appears to be perfusing well. Patient also with history of diastolic dysfunction and mitral valve regurgitation. She did have elevated BNP on admission and suspect with the IV fluid boluses that she has had increasing pulmonary edema which is likely contributing to some of her wheezing as that can potentially be a cardiac wheeze as well as to her hypoxia. Her chest x-ray today did show evidence of increased pulmonary vascular congestion and patient did also report increasing leg swelling since being admitted to the hospital. Would give patient a dose of Lasix 40 mg IV and monitor her renal function, ins and outs and electrolytes. Would replete electrolytes as tolerated. Can continue with Solu-Medrol for an acute COPD exacerbation and can continue with antibiotics for now with monitoring of her sputum culture and monitoring of procalcitonin to aid in deescalation of antibiotics. Would DC the theophylline for now given history of multiple drug interactions while admitted to hospital. Would also check a theophylline level before resuming her theophylline. I suspect patient's hypertension is also contributing to her pulmonary edema and so we will continue with medications for controlling her blood pressure. She is on diltiazem and Losartan but does continue to be hypertensive and could consider adding hydralazine potentially to her regimen. We will continue nasal cannula oxygen supplementation and wean down as tolerated to maintain an O2 sat above 90%. She is on oxygen chronically at nighttime and occasionally during the day with exertion as per the patient. We also discussed with the patient the results of her CT in regards to the enlarging, spiculated suspicious nodules in the left upper lobe. She did reiterate that she is a DNR/DNI and she is unclear that if she would want to pursue treatment options such as chemotherapy and radiation if the nodules did machine turner to be a malignancy. We did discuss that for a more definitive diagnosis that she would need biopsy procedures but would only elect to perform biopsy procedures and undergo the risks of those procedures if she would be willing to undergo treatment for a possible malignancy. The patient would like to consider this further before making her decision about possible further diagnostic testing such as biopsy. She does follow up with Dr. Pruitt as an outpatient and she can also get a PET CT as an outpatient to engine room helper in the discussion in terms of next steps. She would like to also discuss this with her cage unloader as well. DVT prophylaxis: Lovenox. Code Status: DNR/DNI. MTDD
[2021-03-16] MEDS: **hydrALAZINE HCL** 25 MG TAB PO SCH (18:35)
[2021-03-16] MEDS: LOSARTAN 50MG TABLET PO SCH (20:50)
[2021-03-17] VITALS (15 sets, daily range): BP systolic 128–197; BP diastolic 58–82; O2SAT 93–99
[2021-03-17] MEDS: IPRATROPIUM 0.5MG/ALBUTEROL 2.5MG INH SOL UD 3ML (DUONEB) NEB SCH ×4 (01:15→19:54)
[2021-03-17] MEDS: **hydrALAZINE HCL** 25 MG TAB PO SCH ×3 (01:37→16:20)
[2021-03-17] MEDS: methylPREDNISolone 125MG 2ML VIAL IV SCH ×3 (01:38→17:44)
[2021-03-17] MEDS: FUROSEMIDE 40MG/4ML VIAL (J1940) IV SCH ×2 (01:42→09:14)
[2021-03-17] MEDS: PIPERACILLIN/TAZOBACTAM SOD 4.5 GM in D5W MINI-BAG PLUS 50 ML IV SCH ×2 (02:42→09:17)
[2021-03-17] MEDS: LEVOTHYROXINE 88MCG TABLET (0.088 MG) PO SCH (05:24)
[2021-03-17] MEDS: PERCOCET 5MG/325MG TAB PO PRN (05:30)
[2021-03-17 05:54] LABS: HEMATOCRIT 40.5 % (36.0-47.0); HEMOGLOBIN 12.6 g/dl (12.0-15.5); MEAN CORPUSCULAR HEMOGLOBIN 24.7 pg (27.0-33.0); MEAN CORPUSCULAR HGB CONC 31.1 g/dl (32.0-36.5); MEAN CORPUSCULAR VOLUME 79.3 fl (80.0-96.0); PLATELET COUNT, AUTOMATED 449 10^3/uL (150-450); RED BLOOD COUNT 5.11 10^6/uL (4.00-5.40); WHITE BLOOD COUNT 11.6 10^3/uL (4.0-10.0)
[2021-03-17 06:14] LABS: CALCIUM LEVEL 8.3 MG/DL (8.8-10.2); CREATININE FOR GFR 1.36 MG/DL (0.55-1.30); MAGNESIUM LEVEL 2.1 MG/DL (1.8-2.4); POTASSIUM SERUM 3.5 MEQ/L (3.5-5.1)
[2021-03-17] MEDS ORDERED: HumaLOG INSULIN (NovoLOG) PER UNIT SC ONE (06:25)
--- NOTE | 2021-03-17 07:40 | ECHO ---
DATE OF PROCEDURE: 03/15/2021 Age: 80 Gender: Female Height: 62 inches Weight: 138 pounds Body surface area: 1.63 m2 PATIENT LOCATION: Inpatient ICU, Room 3204. REFERRING PHYSICIAN: Shayla Moreira MD. INDICATION: Chest pain/shortness of breath. MEASUREMENTS: 2D Measurements: RV 2.7 cm LV 4.6 cm Septum 1.3 cm Posterior wall 1.3 cm Aortic Root 3.0 cm LA 3.9 cm LVEF 75% Doppler Measurements: AV 2.13 m/s LVOT 1.14 m/s Mean AV gradient 10 mmHg Dimensionless index 0.55 MV-E 51, A 111, E/A ratio 0.5 Early mitral deceleration time 296 msec E prime medial 5, A prime medial 8, E prime lateral 6.1 Average E/E prime ratio 9.2/PCWP - 13 mmHg PV 1.2 m/s Pulmonary artery acceleration time 108 msec PASP 34 mmHg IVC 1.7 cm COMMENTS: Normal sinus rhythm without intraventricular conduction disturbance. Technically challenging study in light of the patients longstanding smoking history/chronic obstructive pulmonary disease (COPD), but some diagnostically useful information was still obtained. M-mode and two-dimensional echocardiography was performed with pulse, continuous wave, color flow, and tissue Doppler studies. Mild concentric left ventricular hypertrophy with hyperkinetic wall motion. Borderline left atrial enlargement with grade 1 LV diastolic dysfunction, but currently normal estimated mean left atrial pressure. Normal right heart chamber sizes and motion with Doppler sign of mild pulmonary hypertension. Normal IVC size and collapse against an elevated central venous pressure. Normal aortic root diameter. Mild aortic valvular sclerosis with adequate cusp separation. The observed transvalvular gradient is related to hyperkinetic flow. Her dimensionless index was normal against any form of left ventricular outflow tract obstruction. There was no aortic insufficiency. Mild mitral annular calcification without more than trace mitral insufficiency. Normal appearing tricuspid valve with no more than trace insufficiency. We could not visualize any intracardiac mass. There was miniscule pericardial effusion. MTDD
[2021-03-17] MEDS: TIOTROPIUM INHALER/CAPSULE (SPIRIVA) INH SCH (08:07)
[2021-03-17] MEDS ORDERED: LEVEMIR (INSULIN DETEMIR) 1 UNITS/0.01ML SC SCH (09:00)
[2021-03-17] MEDS: NICOTINE 21MG/24HR 1 EA TRANSDERMAL TD SCH (09:00)
[2021-03-17] MEDS: PANTOPRAZOLE 40MG TAB (PROTONIX) PO SCH (09:12)
[2021-03-17] MEDS: EZETIMIBE 10 MG TAB (ZETIA) PO SCH (09:13)
[2021-03-17] MEDS: ASPIRIN 81MG ENTERIC TABLET PO SCH (09:13)
[2021-03-17] MEDS: diltiaZEM **CD** 180 MG CAP PO SCH (09:13)
[2021-03-17] MEDS: ENOXAPARIN 40MG/0.4ML SYRINGE (J1650 PER 10MG) SC SCH (09:14)
[2021-03-17] MEDS: HumaLOG INSULIN (NovoLOG) PER UNIT SC SCH ×4 (09:15→20:53)
[2021-03-17] MEDS: ATORVASTATIN 20 MG TAB PO SCH (09:16)
[2021-03-17] MEDS ORDERED: NS 500 ML IV ONE (13:00)
--- NOTE | 2021-03-17 13:14 | IPN ---
PROGRESS NOTE DATE: 03/16/2021 SUBJECTIVE: The patient was seen and examined this morning during bedside rounds. The patient was able to be weaned off of oxygen supplementation after receiving her Lasix yesterday with very good urine output and diuresis. The patient does feel her breathing has also improved this morning and she has been able to walk around the room without as much shortness of breath. She does feel a little shaky she states but otherwise is feeling better in terms of her breathing. She does have some slight wheezing still although at home at baseline she generally does have some wheezing in the morning. The patient is eager to return home to her whom she states is elderly and she does have to help care for him at home. She is hopeful that she will be able to return home tomorrow and be discharged from the hospital. The patient also states she has further considered our discussion from yesterday about the enlarging lung mass in the left upper lobe. At this point she states she would like to pursue further diagnostic testing including biopsy procedure for more definitive diagnosis. OBJECTIVE: VITAL SIGNS: Temperature is 98.1, pulse is 90, respirations 19, blood pressure is 161/72. O2 sat 94% on room air. INPUT AND OUTPUT: In 1.9 liters, output 3.9 liters, net negative 1.9 liters yesterday, an additional 1.4 liters net negative this morning. GENERAL: Patient is an elderly female, is sitting in bed awake, alert and oriented x3. She is able to speak in full sentences but does have some occasional accessory muscle use with respiration. HEENT: Normocephalic, atraumatic. The patient has surgical pupils bilaterally. There are moist mucous membranes noted. NECK: Supple. Trachea is midline. CARDIAC: Somewhat distant heart sounds. Regular rate and rhythm with normal S1 and S2 and a faint murmur auscultated. PULMONARY: There is improved breath sounds bilaterally but still with faint expiratory wheezes but less crackles noted. ABDOMEN: Soft, nontender and nondistended. Normoactive bowel sounds. EXTREMITIES: There is improvement with no lower extremity edema noted bilaterally. LABORATORY DATA: WBC 11.6, hemoglobin 12.6, platelets are 449,000. Chemistries shows a sodium of 133, potassium is 3.5, chloride is 94, bicarbonate is 30, BUN is 35, creatinine is 1.36, glucose is 475. Calcium is 8.3, magnesium is 2.1. Theophylline level was 2.2. ASSESSMENT AND PLAN: Mrs. Cai is a 80-year-old female with a past medical history of COPD with chronic hypoxic respiratory failure with ongoing nicotine dependence, history of diastolic CHF and mitral valve regurgitation, hypertension, hypothyroidism and hyperlipidemia who presented with worsening shortness of breath and dyspnea. The patient was admitted for acute COPD exacerbation with a possible pneumonia. She was given IV Solumedrol as well as started on broad-spectrum antibiotics and given IV fluid boluses for possible sepsis. She did also have mildly elevated lactic acidosis as well on admission although had been hypertensive and not hypotensive with blood pressures at times with systolic up into the 200s. Pulmonary was consulted yesterday as she was reporting persistent shortness of breath and dyspnea as well as having some increased oxygen requirements from her baseline and continued wheezing. The patient was thought to have some degree of fluid overload given her elevated BNP on admission and a history of diastolic dysfunction and mitral valve regurgitation. She is also suspected to have some degree of pulmonary hypertension given her chronic hypoxemic respiratory failure with severe COPD. Patient was given aggressive diuresis with Lasix by her primary team and she did have improvement in her oxygenation and her dyspnea. The patient reports she continues to have very frequent urination and this morning her labs did also show a mild RAJI likely in the setting of her diuresis. Acute COPD exacerbation with possible pneumonia. The patient's CT chest initially did show some scattered areas of tree-in-bud and reticular nodular opacities suggestive of an acute infectious process. She also reported an increasing cough as well as subjective chills at home. - Will continue patient with Zosyn for now. She was also on Levaquin as an outpatient and so would continue for a total of a 10 day course from when she started her outpatient antibiotic. On discharge, can likely change her from the Zosyn back to the Levaquin for antibiotics but she would have to continue holding her theophylline until she completes her antibiotics due to interaction. - Patient's lactic acidosis was thought to be less likely in the setting of sepsis and possibly more in the setting of her work of her breathing with the severe obstructive airway disease as well as if she does have a degree of chronic pulmonary hypertension. There is also a possibility that the lactic acidosis may potentially be in the setting of malignancy. She otherwise appears to be perfusing well in terms of her mental status and with her renal function initially. - Patient was given IV Lasix 40 mg q. 8 for fluid overload and pulmonary edema contributing to her worsening hypoxia and dyspnea. With diuresis she has been weaned off of the oxygen supplementation during the day which is her baseline. She does use nasal cannula supplementation at night chronically. Her labs today did show RAJI in the setting of her diuretics and so will discontinue the Lasix and will actually give some gentle fluid hydration as she did receive her morning dose of Lasix at 9 a.m. and this morning is already 1.4 liters net negative. Will give her gentle fluid hydration for only a 500 ml bolus and encourage oral intake. - Will continue Solu-Medrol for her acute COPD exacerbation. Patient will need a long slow taper of prednisone upon discharge. - Can continue her home inhalers but will hold theophylline until she completes her antibiotics. - Will continue blood pressure medications as per primary team but the episodes of hypertension can contribute to worsening pulmonary edema. - Discussed with her today about the suspicious mass and nodules in the left upper lobe. We had also contacted her primary airport attendant, Dr. Pruitt, and after further discussion the patient states she would elect for more definitive diagnosis with a biopsy procedure. As she does have issues with transportation as an outpatient, will set up for a CT guided biopsy of the larger left upper lobe mass while she is admitted here. As she had already received her morning Lovenox, her CT guided biopsy procedure will have to be done tomorrow morning. Will get a chest x-ray post-procedure and if there is no pneumothorax then she will be cleared for discharge home tomorrow as long as she is clinically showing improvement and cleared by her primary team. DVT prophylaxis, Lovenox on hold tomorrow for procedure. Code status: DNR/DNI. Patient can follow-up with her airport attendant, Dr. Pruitt, upon discharge. ROMAN
[2021-03-17] MEDS: PIPERACILLIN/TAZOBACTAM SOD 3.375 GM in D5W MINI-BAG PLUS 50 ML IV SCH ×2 (16:21→20:53)
--- NOTE | 2021-03-17 17:33 | IPNPDOC ---
Date Seen The patient was seen on 03/17/21. Progress Note SUBJECTIVE: Patient was seen and examined at bedside this morning. She continues to be mildly short of breath and was hypertensive urgency overnight. She continues to have audible wheezing is requiring 2 L of oxygen via nasal cannula to maintain saturation. She is concerned because her home as she cares for her requires surgical. At this time. She denies any chest pain, palpitations, fevers, chills, nausea, vomiting, diarrhea, lower extremity edema. OBJECTIVE PHYSICAL EXAMINATION: VITAL SIGNS: please see below General: NAD, comfortable HEENT: PERRLA, EOMI, sclerae clear Neck: supple, normal ROM, no JVD Respiratory: Fair entry bilaterally. No audible wheeze. Bilateral lung cervantes. Also crackles at lung bases. No rhonchi, no rales. CVS: RRR, normal S1, S2, no murmurs Abdo: soft, no masses, no hepatosplenomegaly, BS+, no rebound tenderness Extremities: Plus edema bilaterally MSK: no joint deformities, normal ROM Neuro: no focal neuro deficits, moving all 4 extremities, CN2-12 intact. Strength 5/5 in all 4 extremities. No nystagmus. Psych: calm, cooperative, AAO x 3 LABORATORY DATA, IMAGING STUDIES, MICROBIOLOGY: Please see below. Echocardiogram: Cardiogram report given by Dr. Pederson preliminarily on 03/15/21. abnormalities noted. Mild pulmonary hypertension suspected. Vital report pending in [facility]. DVT prophylaxis ordered?: Lovenox 40 mg subcutaneous daily. ASSESSMENT AND PLAN: Mrs. Cai is a 80-year-old female with a history of chronic oxygen-dependent respiratory failure, COPD, chronic diastolic congestive heart failure, now has insulin-dependent diabetes, history of PE, hypertension, admitted to hospital for management of hypertensive urgency as well as acute COPD exacerbation. PROBLEMS: #. SVT - Resolved after adenosine - on admission, Dr. Pederson reviewed EKG, felt SVT was triggered by acute COPD exacerbation - given one dose of digoxin - presently on cardizem 180 mg CD po daily - continue continues cardiac monitoring - echo report reviewed. - avoid digoxin per Dr. Ceballos as may have interaction with theophylline. Do not resume theophylline while on abx due to possible DD interaction #. HTN Urgency - EKG showed mild ST depression in V4-V6 but the trop was wnl - Trop negative x 3 - HTN worsened due to IVF, IVF stopped - BP improved on cardizem PO - added hydralazine PO, titrated to 50 mg q8h - s/p IV diuresis with furosemide #. Acute COPD exacerbation - presently requires 2L O2. At baseline - diffuse wheezing noted in bilateral lung cervantes - c/w duonebs - solumedrol 60 mg q8h IV - digital sales assistant consult placed with Dr. Ceballos. - c/w spiriva. holding theophylline #. Chronic O2 Dependent Respiratory Failure - supplemental O2 #.SIRS - 2/2 pna - LA elevated despite 1L NS, IVF held due to suspected worsening pulmonary edema - BP elevated - c/w zosyn (may DC with levaquin) to complete a 10 day course - avoid theophylline while on abx due to interaction - follow up blood cultures # ANTONELLA Mass - She received Levaquin for a few days for PNA - presently on zosyn - Radiologists recommends PET /CT for possible malignancy - pulmonology Dr. Ceballos consulted. - patient verbalized to me she wants to known etiology of mass with tissue dx - per Dr. Ceballos, order placed for CT guided lung biopsy - will be done on 03/17/21 as patient received this morning lovenox #Chronic Diastolic CHF - echo report reviewed from 01/15/21: Grade 1 diastolic dysfunction. Mild pulmonary HTN. LVEF 75%. - suspect SOB not cardiac in etiology - euvolemic - DC iv lasix #. NIDDM - ISS, FSBS AC and HS - hypoglycemic precautions #. Hypothyroidism - c/w levothyroxine #. Dyslipidemia - c/w Zetia and Statin VS, I&O, 24H, Fishbone Vital Signs/I&O Vital Signs Date Time Temp Pulse Resp B/P (MAP) Pulse Ox O2 Delivery O2 Flow Rate FiO2 03/17/21 16:20 171/58 03/17/21 16:00 98.9 99 19 97 Room Air 03/16/21 20:00 1.0 I&O- Last 24 Hours up to 6 AM 03/17/21 06:00 Intake Total 1690 ml Output Total 5325 ml Balance -3635 ml Laboratory Data 24H LABS Laboratory Tests 2 03/16/21 20:23: Bedside Glucose (Misc Panel) 348H 03/17/21 05:14: Nucleated Red Blood Cells % (auto) 0.0, Anion Gap 9, Glomerular Filtration Rate 40.0, Calcium Level 8.3L, Magnesium Level 2.1 03/17/21 07:58: Lactic Acid Level 4.5*H 03/17/21 08:30: Bedside Glucose (Misc Panel) 432H 03/17/21 11:52: Bedside Glucose (Misc Panel) 376H 03/17/21 12:18: Lactic Acid Followup at 4 Hours 3.3*H 03/17/21 17:05: Bedside Glucose (Misc Panel) 324H CBC/BMP Laboratory Tests 03/17/21 05:14 Microbiology Microbiology 03/15/21 Blood Culture - Preliminary, Resulted No Growth after 48 hours. All Specime... 03/15/21 Blood Culture - Preliminary, Resulted 03/14/21 Respiratory Virus Panel (PCR) ([facility]) - Final, Complete ANGELA GARIBAY MD Mar 17, 2021 17:32
[2021-03-17] MEDS: LOSARTAN 50MG TABLET PO SCH (20:52)
[2021-03-18] VITALS (16 sets, daily range): BP systolic 142–167; BP diastolic 50–72; O2SAT 91–99
[2021-03-18] MEDS: **hydrALAZINE** 50 MG TAB PO SCH ×3 (00:09→16:28)
[2021-03-18] MEDS: IPRATROPIUM 0.5MG/ALBUTEROL 2.5MG INH SOL UD 3ML (DUONEB) NEB SCH ×4 (01:24→20:18)
[2021-03-18] MEDS: PIPERACILLIN/TAZOBACTAM SOD 3.375 GM in D5W MINI-BAG PLUS 50 ML IV SCH ×4 (02:33→20:37)
[2021-03-18] MEDS: methylPREDNISolone 125MG 2ML VIAL IV SCH ×2 (02:33→08:21)
[2021-03-18] MEDS: LEVOTHYROXINE 88MCG TABLET (0.088 MG) PO SCH (05:23)
[2021-03-18 05:52] LABS: BASO % 0.2 % (0.0-1.0); HEMATOCRIT 39.6 % (36.0-47.0); HEMOGLOBIN 12.5 g/dl (12.0-15.5); LYMPH # 0.4 10^3/uL (1.5-5.0); LYMPH % 3.7 % (24.0-44.0); MEAN CORPUSCULAR HEMOGLOBIN 25.1 pg (27.0-33.0); MEAN CORPUSCULAR HGB CONC 31.6 g/dl (32.0-36.5); MEAN CORPUSCULAR VOLUME 79.4 fl (80.0-96.0); MONO # 0.3 10^3/uL (0.0-0.8); MONO % 3.2 % (2.0-8.0); NEUTROPHILS # 9.7 10^3/uL (1.5-8.5); NEUTROPHILS % 91.6 % (36.0-66.0); PLATELET COUNT, AUTOMATED 430 10^3/uL (150-450); RED BLOOD COUNT 4.99 10^6/uL (4.00-5.40); WHITE BLOOD COUNT 10.6 10^3/uL (4.0-10.0)
[2021-03-18 06:17] LABS: CALCIUM LEVEL 7.9 MG/DL (8.8-10.2); CREATININE FOR GFR 1.22 MG/DL (0.55-1.30); GLOMERULAR FILTRATION RATE 45.4 (>39); POTASSIUM SERUM 3.3 MEQ/L (3.5-5.1)
[2021-03-18] MEDS: TIOTROPIUM INHALER/CAPSULE (SPIRIVA) INH SCH (07:50)
[2021-03-18] MEDS ORDERED: POTASSIUM CHLORIDE 10 MEQ SR TABLET PO ONE (08:15)
[2021-03-18] MEDS: ASPIRIN 81MG ENTERIC TABLET PO SCH (08:18)
[2021-03-18] MEDS: ATORVASTATIN 20 MG TAB PO SCH (08:18)
[2021-03-18] MEDS: PANTOPRAZOLE 40MG TAB (PROTONIX) PO SCH (08:18)
[2021-03-18] MEDS: EZETIMIBE 10 MG TAB (ZETIA) PO SCH (08:18)
[2021-03-18] MEDS: diltiaZEM **CD** 180 MG CAP PO SCH (08:19)
[2021-03-18] MEDS: PERCOCET 5MG/325MG TAB PO PRN ×2 (08:20→22:39)
[2021-03-18] MEDS: HumaLOG INSULIN (NovoLOG) PER UNIT SC SCH ×4 (08:23→20:37)
[2021-03-18] MEDS: NICOTINE 21MG/24HR 1 EA TRANSDERMAL TD SCH (08:23)
[2021-03-18] MEDS ORDERED: LEVEMIR (INSULIN DETEMIR) 1 UNITS/0.01ML SC SCH ×2 (09:00→21:00)
[2021-03-18] MEDS ORDERED: MIDAZOLAM INJ 2MG/2ML VIAL (J2250 PER 1MG) As Ordered ONE ×2 (14:12→14:13)
[2021-03-18] MEDS ORDERED: flumazeniL 0.5 MG/5 ML VIAL As Ordered ONE (14:12)
[2021-03-18] MEDS ORDERED: LIDOCAINE 1% MDV 20ML VIAL As Ordered ONE (14:13)
--- NOTE | 2021-03-18 16:00 | REP ---
INDICATION: POST LEFT LUNG BIOPSY, 1 VIEW, PA INSPIRATION. COMPARISON: Comparison chest x-ray March 16, 2021.. TECHNIQUE: PA inspire a stacey upright chest radiograph. FINDINGS: Monitoring electrodes and oxygen delivery tubing are seen. There is an ill-defined nodular density in the left upper lobe which was the target of the biopsy. There is no evidence of pneumothorax or parenchymal hemorrhage. No hemothorax is seen. Right lung is clear. Cardiomediastinal silhouette is unremarkable. IMPRESSION: No complication is seen. <Electronically signed by Lobo Guerrero > 03/18/21 [id number]
--- NOTE | 2021-03-18 16:42 | REP ---
INDICATION: enlarging ANTONELLA pleural based mass. COMPARISON: None. TECHNIQUE: The procedure was performed under the direct supervision of Dr. Guerrero. The patient has a history of a left upper lobe lung nodule seen on a previous CT scan dated 03/15/2021. The risks and benefits of the procedure were explained to the patient and informed consent was obtained. The left upper lobe lung nodule was localized using CT guidance. The skin was prepped and draped in a sterile fashion. 1% lidocaine was used as a local anesthetic. Using CT guidance a 19/20 gauge coaxial needle biopsy system was inserted and advanced into the nodule. Three core biopsy samples were obtained and sent to the lab. The patient tolerated the procedure well and there were no immediate complications. After the appropriate amount to monitor convalescence the patient was discharged from the department. FINDINGS: None IMPRESSION: CT-guided left upper lobe lung biopsy. <Electronically signed by Ananth Bell > 03/18/21 [id number] <Electronically signed by Lobo Guerrero > 03/18/21 [id number]
--- NOTE | 2021-03-18 17:04 | IPNPDOC ---
Date Seen The patient was seen on 03/18/21. Progress Note SUBJECTIVE: Mild expiratory and inspiratory wheezing, appears to be improving slowly. Decreased steroids. BS uncontrolled, added levemir BID. On 2 L NC ATC here; uses as needed during day and every evening. + blood culture, repeated today. Replaced K. Biopsy today with path sent, f/u CXR neg. She denies any chest pain, palpitations, fevers, chills, nausea, vomiting, diarrhea, lower extremity edema. OBJECTIVE: PHYSICAL EXAMINATION: VITAL SIGNS: please see below General: NAD, comfortable HEENT: PERRLA, EOMI, sclerae clear Neck: supple, normal ROM, no JVD Respiratory: Fair entry bilaterally. very mild exp and insp wheezing- patient states this can be normal for her . No crackles at lung bases. No rhonchi, no rales. CVS: RRR, normal S1, S2, no murmurs Abdo: soft, no masses, no hepatosplenomegaly, BS+, no rebound tenderness Extremities: +1 edema bilaterally LE MSK: no joint deformities, normal ROM Neuro: no focal neuro deficits, moving all 4 extremities, CN2-12 intact. Strength 5/5 in all 4 extremities. No nystagmus. Psych: calm, cooperative, AAO x 3 LABORATORY DATA: Please see below MICROBIOLOGY: BCx 1 set 03/15/21: Staph epi BCx 1 set 03/15/21: NG repeat BCx x 2 sets today: pending IMAGING STUDIES: CXR post-biopsy 03/18/21: No acute abnormalities Echocardiogram 03/15/21: EF 75% Normal sinus rhythm without intraventricular conduction disturbance. Technically challenging study in light of the patients longstanding smoking history/chronic obstructive pulmonary disease (COPD), but some diagnostically useful information was still obtained. M-mode and two-dimensional echocardiography was performed with pulse, continuouswave, color flow, and tissue Doppler studies. Mild concentric left ventricular hypertrophy with hyperkinetic wall motion. Borderline left atrial enlargement with grade 1 LV diastolic dysfunction, but currently normal estimated mean left atrial pressure. Normal right heart chamber sizes and motion with Doppler sign of mild pulmonary hypertension. Normal IVC size and collapse against an elevated central venous pressure. Normal aortic root diameter. Mild aortic valvular sclerosis with adequate cusp separation. The observed transvalvular gradient is related to hyperkinetic flow. Her dimensionless index was normal against any form of left ventricular outflow tract obstruction. Therewas no aortic insufficiency. Mild mitral annular calcification without more than trace mitral insufficiency. Normal appearing tricuspid valve with no more than trace insufficiency. We could not visualize any intracardiac mass. There was miniscule pericardial effusion. ASSESSMENT: Mrs. Cai is a 80-year-old female with a history of chronic oxygen-dependent respiratory failure, COPD, chronic diastolic congestive heart failure, now has insulin-dependent diabetes, history of PE, hypertension, admitted to hospital for management of hypertensive urgency as well as acute COPD exacerbation. PLAN: Acute on chronic respiratory failure 2/2 to COPD exacerbation, possible PNA -Remains on 2 L NC ATC, mild exp and insp wheezing but improving slowly -WBC 10.6, afebrile, no worsening s/s of infection -Decreased steroids today -no sputum cx obtained -C/w methylprednisolone 60 mg IV Q12H, duonebs, spiriva, holding theophylline while being treated for PNA. Zosyn for abx until discharge, then can, per pulmonary, d/c with levofloxacin for 10 days (all the while holding theophylline) -Will continue to try and deescalate steroids to PO regimen, wean day O2. 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 Pruitt) as o/p Staphylococcus epidermidis bacteremia? -BCx above -F/u repeat BCx -Currently on Zosyn Lactic acidosis likely 2/2 to severe COPD, chronic pulmonary HTN. 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 Uncontrolled hyperglycemia, DM type II likely 2/2 to steroids -BS 390-413 over past 24 hours -Started on levemir 25 U SC QAM, 15 U SC QPM -C/w ISS, consistent carb diet, deescalate steroids RAJI- resolved -Cr wnl -Monitor closely -daily labs Acute hypokalemia -K 3.3 -Replaced with supplement -F/u AM labs Chronic HFpEF -Echo report reviewed from 01/15/21: Grade 1 diastolic dysfunction. Mild pulmonary HTN. LVEF 75%. -Euvolemic Hypothyroidism - c/w levothyroxine Dyslipidemia - c/w Zetia and Statin DVT px -Stopped heparin/lovenox for biopsy today. Resume on 03/19/21 Resolved issues: #SVT #HTN Urgency DISPOSITION: C/w treatment above. Will need bcx neg prior to discharge, she is aware. Plan is discharge home when medically improved. VS, I&O, 24H, Fishbone Vital Signs/I&O Vital Signs Date Time Temp Pulse Resp B/P (MAP) Pulse Ox O2 Delivery O2 Flow Rate FiO2 03/18/21 16:28 142/52 03/18/21 16:25 97.8 82 18 99 Room Air 03/18/21 15:55 2.0 I&O- Last 24 Hours up to 6 AM 03/18/21 06:00 Intake Total 1603 ml Output Total 2225 ml Balance -622 ml Laboratory Data 24H LABS Laboratory Tests 2 03/17/21 17:05: Bedside Glucose (Misc Panel) 324H 03/17/21 20:15: Bedside Glucose (Misc Panel) 413H 03/18/21 05:23: Immature Granulocyte % (Auto) 1.3, Neutrophils (%) (Auto) 91.6H, Lymphocytes (%) (Auto) 3.7L, Monocytes (%) (Auto) 3.2, Eosinophils (%) (Auto) 0.0, Basophils (%) (Auto) 0.2, Neutrophils # (Auto) 9.7H, Lymphocytes # (Auto) 0.4L, Monocytes # (Auto) 0.3, Eosinophils # (Auto) 0.0, Basophils # (Auto) 0.0, Nucleated Red Blood Cells % (auto) 0.0, Anion Gap 6L, Glomerular Filtration Rate 45.4, Calcium Level 7.9L 03/18/21 08:11: Lactic Acid Level 4.1*H 03/18/21 11:35: Bedside Glucose (Misc Panel) 393H 03/18/21 12:22: Lactic Acid Followup at 4 Hours 2.8*H 03/18/21 16:40: Bedside Glucose (Misc Panel) 217H CBC/BMP Laboratory Tests 03/18/21 05:23 Microbiology Microbiology 03/18/21 Blood Culture, Received Pending 03/18/21 Blood Culture, Received Pending 03/15/21 Blood Culture - Preliminary, Resulted No Growth after 72 hours. All specime... 03/15/21 Blood Culture - Final, Complete Staphylococcus Epidermidis 03/14/21 Respiratory Virus Panel (PCR) ([facility]) - Final, Complete Current Medications Current Medications Medications (Trade) Dose Ordered Sig/[place] Route PRN Reason Start Time Stop Time Status Last Admin Dose Admin Acetaminophen (Tylenol Tab) 650 mg Q4H PRN PO PAIN OR FEVER 03/15/21 03:20 03/16/21 23:59 Al Hydrox/Mg Hydrox/Simethicone (Mylanta) 30 ml DAILY PRN PO DYSPEPSIA 03/15/21 03:20 Albuterol Sulfate (Proventil Neb) 2.5 mg Q1HP PRN NEB SHORTNESS OF BREATH 03/15/21 03:20 Albuterol/ Ipratropium (Duoneb (Ipr 0.5mg/Alb 2.5mg)) 3 ml RQ6H NEB 03/15/21 08:00 03/18/21 07:50 Amlodipine Besylate (Norvasc) 2.5 mg DAILY PO 03/16/21 09:00 03/16/21 04:08 DC Amlodipine Besylate (Norvasc) 5 mg DAILY PO 03/16/21 02:40 03/16/21 03:23 DC Aspirin (Ecotrin) 81 mg DAILY PO 03/15/21 09:00 03/18/21 08:18 Atorvastatin Calcium (Lipitor) 40 mg DAILY PO 03/15/21 09:00 03/18/21 08:18 Dextrose (Dextrose 50%) 25 ml ASDIRECTED PRN IV SEE LABEL COMMENTS 03/15/21 06:55 Digoxin (Lanoxin) 0.125 mg DAILY PO 03/16/21 12:20 03/16/21 13:23 DC Diltiazem HCl (Cardizem Cd) 180 mg DAILY PO 03/16/21 09:00 03/18/21 08:19 Diltiazem HCl 125 mg/Sodium Chloride 125 ml @ 5 mls/hr Q24H IV 03/15/21 04:00 03/15/21 08:18 DC 03/15/21 04:56 Diltiazem HCl 125 mg/Sodium Chloride 125 ml @ 5 mls/hr Q24H IV 03/15/21 07:45 UNV Enoxaparin Sodium (Lovenox) 40 mg DAILY SC 03/15/21 09:00 Hold 03/17/21 09:14 EZETIMIBE (Zetia) 10 mg DAILY PO 03/15/21 09:00 03/18/21 08:18 Furosemide (LASIX injection) 40 mg Q8H IV 03/16/21 09:00 03/17/21 12:32 DC 03/17/21 09:14 Glucagon (Glucagon) 1 mg ASDIRECTED PRN SC SEE LABEL COMMENTS 03/15/21 06:55 Glucose (Glucose) 16 GM ASDIRECTED PRN PO SEE LABEL COMMENTS 03/15/21 06:55 Home Med (Med Rec Complete!) ASDIRECTED XX 03/15/21 03:10 03/15/21 03:20 DC Hydralazine HCl (Apresoline) 10 mg STAT STAT IV 03/15/21 02:28 03/15/21 02:29 DC 03/15/21 03:03 Hydralazine HCl (Apresoline) 25 mg Q8H PO 03/16/21 17:00 03/17/21 19:26 DC 03/17/21 16:20 Hydralazine HCl (Apresoline) 50 mg Q8H PO 03/18/21 01:00 03/18/21 16:28 Insulin Detemir (Levemir Insulin) 15 units QAM SC 03/15/21 12:45 03/17/21 06:22 DC 03/16/21 09:15 Insulin Detemir (Levemir Insulin) 15 units QHS SC 03/18/21 21:00 Insulin Detemir (Levemir Insulin) 18 units QAM SC 03/17/21 09:00 03/18/21 08:00 DC 03/17/21 09:15 Insulin Detemir (Levemir Insulin) 28 units QAM SC 03/18/21 09:00 03/18/21 08:22 Insulin Human Lispro (HumaLOG INSULIN) SEE PROTOCOL TABLE AC SC 03/15/21 07:30 03/18/21 11:56 Insulin Human Lispro (HumaLOG INSULIN) SEE PROTOCOL TABLE QHS SC 03/15/21 21:00 03/17/21 20:53 Labetalol HCl (Normodyne, Trandate) 10 mg Q6H PRN IV SBP > 180 mmhg 03/15/21 07:45 03/16/21 02:09 Levothyroxine Sodium (Synthroid) 88 mcg DAILY@06 PO 03/15/21 06:00 03/18/21 05:23 Losartan Potassium (Cozaar) 100 mg QHS PO 03/15/21 21:00 03/17/21 20:52 Magnesium Hydroxide (Milk Of Magnesia) 30 ml DAILY PRN PO CONSTIPATION 03/15/21 03:20 Methylprednisolone (SOLUmedrol) 60 mg Q12H IV 03/18/21 20:00 Methylprednisolone (SOLUmedrol) 60 mg Q8H IV 03/15/21 18:00 03/18/21 10:34 DC 03/18/21 08:21 Methylprednisolone (SOLUmedrol) 125 mg STAT STAT IV 03/15/21 03:17 03/15/21 03:30 DC 03/15/21 04:30 Miscellaneous (Unresolved Patient Own Med Order) SEE LABEL COMMENTS DAILY XX 03/15/21 09:00 03/15/21 15:25 DC Nicotine (Nicoderm Cq 21mg) 1 patch DAILY TD 03/15/21 09:00 Oxycodone/ Acetaminophen (Percocet 5mg/ 325mg Tablet) 1 tab BID PRN PO PAIN 03/15/21 04:10 03/18/21 08:20 Pantoprazole Sodium (Protonix) 40 mg DAILY PO 03/15/21 09:00 03/18/21 08:18 Patient Own Medication (Patient'S Own Med) SYNTHROID 88MCG/TAB (BR... DAILY@0600 PO 03/15/21 06:00 03/15/21 15:26 DC Piperacillin Sod/ Tazobactam Sod 3.375 gm/Dextrose 50 ml @ 50 mls/hr Q6H IV 03/17/21 15:00 03/18/21 16:27 Piperacillin Sod/ Tazobactam Sod 4.5 gm/Dextrose 50 ml @ 50 mls/hr Q6H IV 03/15/21 09:00 03/17/21 10:15 DC 03/17/21 09:17 Prednisone (Deltasone) 40 mg DAILY PO 03/15/21 09:00 03/15/21 16:26 DC 03/15/21 09:26 Sodium Chloride 1,000 ml @ 125 mls/hr Q8H IV 03/15/21 20:00 03/16/21 02:42 DC 03/15/21 19:48 Theophylline (Terrence-24) 300 mg BID PO 03/15/21 09:00 Hold 03/16/21 09:14 Tiotropium [place] (Spiriva Handihaler) 1 inhalation DAILY@0800 INH 03/15/21 08:00 03/17/21 08:07 Allergies Coded Allergies: Cephalosporins (Verified Allergy, Mild, RASH, 07/17/19) apixaban (Verified Allergy, Mild, RASH, 07/17/19) carisoprodol (Verified Allergy, Mild, RASH, 07/17/19) clavulanic acid (Verified Allergy, Mild, VOMITING, RASH, 01/17/20) AMOXICILLIN, PENICILLIN, AMPICILLIN OK PER PT codeine (Verified Allergy, Mild, RASH, 07/17/19) Sulfa (Sulfonamide Antibiotics) (Verified Allergy, Unknown, UNKNOWN RXN A CHILD, 07/17/19) Livier Harman MD Mar 18, 2021 17:04
[2021-03-18] MEDS ORDERED: methylPREDNISolone 125MG 2ML VIAL IV SCH (20:00)
[2021-03-18] MEDS: LOSARTAN 50MG TABLET PO SCH (20:36)
[2021-03-19] VITALS (8 sets, daily range): BP systolic 156–192; BP diastolic 42–74; O2SAT 96
[2021-03-19] MEDS: **hydrALAZINE** 50 MG TAB PO SCH ×3 (00:13→17:12)
[2021-03-19] MEDS: IPRATROPIUM 0.5MG/ALBUTEROL 2.5MG INH SOL UD 3ML (DUONEB) NEB SCH ×4 (02:09→20:19)
[2021-03-19] MEDS: PIPERACILLIN/TAZOBACTAM SOD 3.375 GM in D5W MINI-BAG PLUS 50 ML IV SCH ×4 (03:31→21:41)
[2021-03-19 05:09] LABS: HEMATOCRIT 39.4 % (36.0-47.0); HEMOGLOBIN 12.5 g/dl (12.0-15.5); MEAN CORPUSCULAR HEMOGLOBIN 25.1 pg (27.0-33.0); MEAN CORPUSCULAR HGB CONC 31.7 g/dl (32.0-36.5); MEAN CORPUSCULAR VOLUME 79.1 fl (80.0-96.0); PLATELET COUNT, AUTOMATED 421 10^3/uL (150-450); RED BLOOD COUNT 4.98 10^6/uL (4.00-5.40); WHITE BLOOD COUNT 12.2 10^3/uL (4.0-10.0)
[2021-03-19] MEDS: LEVOTHYROXINE 88MCG TABLET (0.088 MG) PO SCH (05:23)
[2021-03-19 06:15] LABS: ALBUMIN 2.7 GM/DL (3.2-5.2); BILIRUBIN,TOTAL 0.3 MG/DL (0.2-1.0); CREATININE FOR GFR 1.08 MG/DL (0.55-1.30); GLOMERULAR FILTRATION RATE 52.2 (>39); POTASSIUM SERUM 4.4 MEQ/L (3.5-5.1); TOTAL PROTEIN 6.2 GM/DL (6.4-8.2)
[2021-03-19] MEDS: TIOTROPIUM INHALER/CAPSULE (SPIRIVA) INH SCH (08:17)
[2021-03-19] MEDS: NICOTINE 21MG/24HR 1 EA TRANSDERMAL TD SCH (09:00)
[2021-03-19] MEDS: LEVEMIR (INSULIN DETEMIR) 1 UNITS/0.01ML SC SCH (09:25)
[2021-03-19] MEDS: HumaLOG INSULIN (NovoLOG) PER UNIT SC SCH ×4 (09:26→21:39)
[2021-03-19] MEDS: ASPIRIN 81MG ENTERIC TABLET PO SCH (09:27)
[2021-03-19] MEDS: EZETIMIBE 10 MG TAB (ZETIA) PO SCH (09:28)
[2021-03-19] MEDS: PANTOPRAZOLE 40MG TAB (PROTONIX) PO SCH (09:28)
[2021-03-19] MEDS: predniSONE 20 MG TAB PO SCH (09:28)
[2021-03-19] MEDS: ATORVASTATIN 20 MG TAB PO SCH (09:29)
[2021-03-19] MEDS: diltiaZEM **CD** 180 MG CAP PO SCH (09:29)
[2021-03-19] MEDS: ENOXAPARIN 40MG/0.4ML SYRINGE (J1650 PER 10MG) SC SCH (09:32)
[2021-03-19] MEDS: THEOPHYLLINE (THEO-24) 100MG SR **CAPSULE PO SCH ×2 (10:42→21:37)
[2021-03-19] MEDS ORDERED: MIRALAX *UNIT DOSE* 17GM PACKET PO PRN (11:25)
[2021-03-19] MEDS ORDERED: hydrALAZINE 20MG/ML 1ML VIAL (J0360 PER 20MG) IV PRN (11:25)
[2021-03-19] MEDS: DOCUSATE SODIUM 100MG CAPSULE PO SCH ×2 (12:11→21:38)
[2021-03-19] MEDS: SENNA 8.6 MG TAB (SENOKOT) PO SCH (12:11)
[2021-03-19] MEDS ORDERED: LEVO500T3 PO ×2 (19:20→19:21)
[2021-03-19] MEDS ORDERED: PRED20TA PO (19:20)
--- NOTE | 2021-03-19 19:27 | IPNPDOC ---
Date Seen The patient was seen on 03/19/21. Progress Note SUBJECTIVE: Mild inspiratory wheezing today, likely patient's baseline. Stopped IV steroids, started Po prednisone. Levemir adjusted for high BS. Tearful and wanting to go home. She denies any chest pain, palpitations, fevers, chills, nausea, vomiting, diarrhea, lower extremity edema. OBJECTIVE: PHYSICAL EXAMINATION: VITAL SIGNS: please see below General: NAD but tearful at times, AAOx3 HEENT: PERRLA, EOMI, sclerae clear Neck: supple, normal ROM, no JVD Respiratory: Fair entry bilaterally. very mild exp wheezing- patient states this can be normal for her . No crackles at lung bases. No rhonchi, no rales. CVS: RRR, normal S1, S2, no murmurs Abdo: soft, no masses, no hepatosplenomegaly, BS+, no rebound tenderness Extremities: +1 edema bilaterally LE MSK: no joint deformities, normal ROM Neuro: no focal neuro deficits, moving all 4 extremities, CN2-12 intact. Strength 5/5 in all 4 extremities. No nystagmus. Psych: calm, cooperative, AAO x 3 LABORATORY DATA: Please see below MICROBIOLOGY: BCx 1 set 03/15/21: Staph epi BCx 1 set 03/15/21: NG repeat BCx x 2 sets today: NG to date as of later this afternoon IMAGING STUDIES: CXR post-biopsy 03/18/21: No acute abnormalities Echocardiogram 03/15/21: EF 75% Normal sinus rhythm without intraventricular conduction disturbance. Technically challenging study in light of the patients longstanding smoking history/chronic obstructive pulmonary disease (COPD), but some diagnostically useful information was still obtained. M-mode and two-dimensional echocardiography was performed with pulse, continuouswave, color flow, and tissue Doppler studies. Mild concentric left ventricular hypertrophy with hyperkinetic wall motion. Borderline left atrial enlargement with grade 1 LV diastolic dysfunction, but currently normal estimated mean left atrial pressure. Normal right heart chamber sizes and motion with Doppler sign of mild pulmonary hypertension. Normal IVC size and collapse against an elevated central venous pressure. Normal aortic root diameter. Mild aortic valvular sclerosis with adequate cusp separation. The observed transvalvular gradient is related to hyperkinetic flow. Her dimensionless index was normal against any form of left ventricular outflow tract obstruction. Therewas no aortic insufficiency. Mild mitral annular calcification without more than trace mitral insufficiency. Normal appearing tricuspid valve with no more than trace insufficiency. We could not visualize any intracardiac mass. There was miniscule pericardial effusion. ASSESSMENT: Mrs. Cai is a 80-year-old female with a history of chronic oxygen-dependent respiratory failure, COPD, chronic diastolic congestive heart failure, now has insulin-dependent diabetes, history of PE, hypertension, admitted to hospital for management of hypertensive urgency as well as acute COPD exacerbation. PLAN: Acute on chronic respiratory failure 2/2 to COPD exacerbation, possible PNA -Remains on 2 L NC ATC, mild exp wheezing but continuing to improving slowly -WBC 12K, afebrile, no worsening s/s of infection -Decreased steroids further today, on PO prednisone -no sputum cx obtained -C/w prednisone PO, duonebs, spiriva, holding theophylline while being treated for PNA. 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 Uncontrolled hyperglycemia, DM type II likely 2/2 to steroids -BS 220-271 over past 24 hours -On levemir BID -C/w ISS, consistent carb diet, deescalate steroids Chronic HFpEF -Echo report reviewed from 01/15/21: Grade 1 diastolic dysfunction. Mild pulmonary HTN. LVEF 75%. -Euvolemic Hypothyroidism - c/w levothyroxine Dyslipidemia - c/w Zetia and Statin DVT px -lovenox Resolved issues: SVT HTN Urgency RAJI Acute hypokalemia DISPOSITION: C/w treatment above. D/c home likely in AM to f/u with pulmonary, PCP VS, I&O, 24H, Fishbone Vital Signs/I&O Vital Signs Date Time Temp Pulse Resp B/P (MAP) Pulse Ox O2 Delivery O2 Flow Rate FiO2 03/19/21 17:12 164/62 03/19/21 15:14 98.3 85 18 96 Nasal Cannula 2.0 I&O- Last 24 Hours up to 6 AM 03/19/21 06:00 Intake Total 1630 ml Output Total 1950 ml Balance -320 ml Laboratory Data 24H LABS Laboratory Tests 2 03/18/21 20:18: Bedside Glucose (Misc Panel) 221H 03/19/21 05:02: Nucleated Red Blood Cells % (auto) 0.2H, Anion Gap 7L, Glomerular Filtration Rate 52.2, Calcium Level 8.0L, Total Bilirubin 0.3, Aspartate Amino Transf (AST/SGOT) 12, Alanine Aminotransferase (ALT/SGPT) 12, Alkaline Phosphatase 51, Total Protein 6.2L, Albumin 2.7L, Albumin/Globulin Ratio 0.8L 03/19/21 11:38: Bedside Glucose (Misc Panel) 274H 03/19/21 17:22: Bedside Glucose (Misc Panel) 250H CBC/BMP Laboratory Tests 03/19/21 05:02 Microbiology Microbiology 03/18/21 Blood Culture - Preliminary, Resulted No growth after 24 hours . All specim... 03/18/21 Blood Culture - Preliminary, Resulted No growth after 24 hours . All specim... 03/15/21 Blood Culture - Preliminary, Resulted No Growth after 72 hours. All specime... 03/15/21 Blood Culture - Final, Complete Staphylococcus Epidermidis 03/14/21 Respiratory Virus Panel (PCR) ([facility]) - Final, Complete Current Medications Current Medications Medications (Trade) Dose Ordered Sig/[place] Route PRN Reason Start Time Stop Time Status Last Admin Dose Admin Acetaminophen (Tylenol Tab) 650 mg Q4H PRN PO PAIN OR FEVER 03/15/21 03:20 03/16/21 23:59 Al Hydrox/Mg Hydrox/Simethicone (Mylanta) 30 ml DAILY PRN PO DYSPEPSIA 03/15/21 03:20 Albuterol Sulfate (Proventil Neb) 2.5 mg Q1HP PRN NEB SHORTNESS OF BREATH 03/15/21 03:20 Albuterol/ Ipratropium (Duoneb (Ipr 0.5mg/Alb 2.5mg)) 3 ml RQ6H NEB 4/17/21 08:00 03/19/21 13:22 Amlodipine Besylate (Norvasc) 2.5 mg DAILY PO 03/16/21 09:00 03/16/21 04:08 DC Amlodipine Besylate (Norvasc) 5 mg DAILY PO 03/16/21 02:40 03/16/21 03:23 DC Aspirin (Ecotrin) 81 mg DAILY PO 03/15/21 09:00 03/19/21 09:27 Atorvastatin Calcium (Lipitor) 40 mg DAILY PO 03/15/21 09:00 03/19/21 09:29 Dextrose (Dextrose 50%) 25 ml ASDIRECTED PRN IV SEE LABEL COMMENTS 03/15/21 06:55 Digoxin (Lanoxin) 0.125 mg DAILY PO 03/16/21 12:20 03/16/21 13:23 DC Diltiazem HCl (Cardizem Cd) 180 mg DAILY PO 03/16/21 09:00 03/19/21 09:29 Diltiazem HCl 125 mg/Sodium Chloride 125 ml @ 5 mls/hr Q24H IV 03/15/21 04:00 03/15/21 08:18 DC 03/15/21 04:56 Diltiazem HCl 125 mg/Sodium Chloride 125 ml @ 5 mls/hr Q24H IV 03/15/21 07:45 UNV Docusate Sodium (Colace) 100 mg BID PO 03/19/21 09:00 03/19/21 12:11 Enoxaparin Sodium (Lovenox) 40 mg DAILY SC 03/15/21 09:00 03/19/21 09:32 EZETIMIBE (Zetia) 10 mg DAILY PO 03/15/21 09:00 03/19/21 09:28 Furosemide (LASIX injection) 40 mg Q8H IV 03/16/21 09:00 03/17/21 12:32 DC 03/17/21 09:14 Glucagon (Glucagon) 1 mg ASDIRECTED PRN SC SEE LABEL COMMENTS 03/15/21 06:55 Glucose (Glucose) 16 GM ASDIRECTED PRN PO SEE LABEL COMMENTS 03/15/21 06:55 Home Med (Med Rec Complete!) ASDIRECTED XX 03/15/21 03:10 03/15/21 03:20 DC Hydralazine HCl (Apresoline) 10 mg Q8HP PRN IV SEE PROTOCOL 03/19/21 11:25 03/19/21 12:50 Hydralazine HCl (Apresoline) 10 mg STAT STAT IV 03/15/21 02:28 03/15/21 02:29 DC 03/15/21 03:03 Hydralazine HCl (Apresoline) 25 mg Q8H PO 03/16/21 17:00 03/17/21 19:26 DC 03/17/21 16:20 Hydralazine HCl (Apresoline) 50 mg Q8H PO 03/18/21 01:00 03/19/21 17:12 Insulin Detemir (Levemir Insulin) 15 units QAM SC 03/15/21 12:45 03/17/21 06:22 DC 03/16/21 09:15 Insulin Detemir (Levemir Insulin) 15 units QHS SC 03/18/21 21:00 03/19/21 08:04 DC 03/18/21 20:37 Insulin Detemir (Levemir Insulin) 18 units QAM SC 03/17/21 09:00 03/18/21 08:00 DC 03/17/21 09:15 Insulin Detemir (Levemir Insulin) 23 units QHS SC 03/19/21 21:00 Insulin Detemir (Levemir Insulin) 28 units QAM SC 03/18/21 09:00 03/19/21 08:04 DC 03/18/21 08:22 Insulin Detemir (Levemir Insulin) 32 units QAM SC 03/19/21 09:00 03/19/21 09:25 Insulin Human Lispro (HumaLOG INSULIN) SEE PROTOCOL TABLE AC SC 03/15/21 07:30 03/19/21 17:38 Insulin Human Lispro (HumaLOG INSULIN) SEE PROTOCOL TABLE QHS SC 03/15/21 21:00 03/17/21 20:53 Labetalol HCl (Normodyne, Trandate) 10 mg Q6H PRN IV SBP > 180 mmhg 03/15/21 07:45 03/16/21 02:09 Levothyroxine Sodium (Synthroid) 88 mcg DAILY@06 PO 03/15/21 06:00 03/19/21 05:23 Losartan Potassium (Cozaar) 100 mg QHS PO 03/15/21 21:00 03/18/21 20:36 Magnesium Hydroxide (Milk Of Magnesia) 30 ml DAILY PRN PO CONSTIPATION 03/15/21 03:20 Methylprednisolone (SOLUmedrol) 60 mg Q12H IV 03/18/21 20:00 03/19/21 08:03 DC 03/18/21 20:36 Methylprednisolone (SOLUmedrol) 60 mg Q8H IV 03/15/21 18:00 03/18/21 10:34 DC 03/18/21 08:21 Methylprednisolone (SOLUmedrol) 125 mg STAT STAT IV 03/15/21 03:17 03/15/21 03:30 DC 03/15/21 04:30 Miscellaneous (Unresolved Patient Own Med Order) SEE LABEL COMMENTS DAILY XX 03/15/21 09:00 03/15/21 15:25 DC Nicotine (Nicoderm Cq 21mg) 1 patch DAILY TD 03/15/21 09:00 Oxycodone/ Acetaminophen (Percocet 5mg/ 325mg Tablet) 1 tab BID PRN PO PAIN 03/15/21 04:10 03/18/21 22:39 Pantoprazole Sodium (Protonix) 40 mg DAILY PO 03/15/21 09:00 03/19/21 09:28 Patient Own Medication (Patient'S Own Med) SYNTHROID 88MCG/TAB (BR... DAILY@0600 PO 03/15/21 06:00 03/15/21 15:26 DC Piperacillin Sod/ Tazobactam Sod 3.375 gm/Dextrose 50 ml @ 50 mls/hr Q6H IV 03/17/21 15:00 03/19/21 17:11 Piperacillin Sod/ Tazobactam Sod 4.5 gm/Dextrose 50 ml @ 50 mls/hr Q6H IV 03/15/21 09:00 03/17/21 10:15 DC 03/17/21 09:17 Polyethylene Glycol (Miralax) 1 pkt DAILYPRN PRN PO CONSTIPATION 03/19/21 11:25 Prednisone (Deltasone) 40 mg DAILY PO 03/15/21 09:00 03/15/21 16:26 DC 03/15/21 09:26 Prednisone (Deltasone) 60 mg DAILY PO 03/19/21 09:00 03/19/21 09:28 Senna (Senokot) 2 tab DAILY PO 03/19/21 09:00 03/19/21 12:11 Sodium Chloride 1,000 ml @ 125 mls/hr Q8H IV 03/15/21 20:00 03/16/21 02:42 DC 03/15/21 19:48 Theophylline (Terrence-24) 300 mg BID PO 03/15/21 09:00 03/19/21 10:42 Tiotropium [place] (Spiriva Handihaler) 1 inhalation DAILY@0800 INH 03/15/21 08:00 03/19/21 08:17 Allergies Coded Allergies: Cephalosporins (Verified Allergy, Mild, RASH, 07/17/19) apixaban (Verified Allergy, Mild, RASH, 07/17/19) carisoprodol (Verified Allergy, Mild, RASH, 07/17/19) clavulanic acid (Verified Allergy, Mild, VOMITING, RASH, 01/17/20) AMOXICILLIN, PENICILLIN, AMPICILLIN OK PER PT codeine (Verified Allergy, Mild, RASH, 07/17/19) Sulfa (Sulfonamide Antibiotics) (Verified Allergy, Unknown, UNKNOWN RXN A CHILD, 07/17/19) Livier Harman MD Mar 19, 2021 19:27
[2021-03-19] MEDS: PERCOCET 5MG/325MG TAB PO PRN (19:46)
[2021-03-19] MEDS ORDERED: LEVEMIR (INSULIN DETEMIR) 1 UNITS/0.01ML SC SCH (21:00)
[2021-03-19] MEDS: LOSARTAN 50MG TABLET PO SCH (21:38)
[2021-03-20] VITALS: BP 174/74
[2021-03-20] MEDS: **hydrALAZINE** 50 MG TAB PO SCH ×2 (00:35→09:16)
[2021-03-20] MEDS: IPRATROPIUM 0.5MG/ALBUTEROL 2.5MG INH SOL UD 3ML (DUONEB) NEB SCH ×3 (02:52→13:12)
[2021-03-20] MEDS: PIPERACILLIN/TAZOBACTAM SOD 3.375 GM in D5W MINI-BAG PLUS 50 ML IV SCH ×2 (02:59→09:17)
[2021-03-20 04:00] VITALS: BP 163/69
[2021-03-20 06:08] LABS: HEMATOCRIT 39.5 % (36.0-47.0); HEMOGLOBIN 12.4 g/dl (12.0-15.5); MEAN CORPUSCULAR HEMOGLOBIN 25.1 pg (27.0-33.0); MEAN CORPUSCULAR HGB CONC 31.4 g/dl (32.0-36.5); PLATELET COUNT, AUTOMATED 443 10^3/uL (150-450); RED BLOOD COUNT 4.94 10^6/uL (4.00-5.40); WHITE BLOOD COUNT 14.8 10^3/uL (4.0-10.0)
[2021-03-20 06:36] LABS: ALBUMIN 2.7 GM/DL (3.2-5.2); ALT/SGPT 12 U/L (12-78); BILIRUBIN,TOTAL 0.3 MG/DL (0.2-1.0); BLOOD UREA NITROGEN 31 MG/DL (7-18); CALCIUM LEVEL 8.9 MG/DL (8.8-10.2); CARBON DIOXIDE LEVEL 33 MEQ/L (21-32); CHLORIDE LEVEL 103 MEQ/L (98-107); CREATININE FOR GFR 0.88 MG/DL (0.55-1.30); GLOMERULAR FILTRATION RATE > 60.0 (>39); GLUCOSE, FASTING 139 MG/DL (70-100); POTASSIUM SERUM 3.6 MEQ/L (3.5-5.1); SODIUM LEVEL 140 MEQ/L (136-145); TOTAL PROTEIN 5.4 GM/DL (6.4-8.2)
[2021-03-20] MEDS: LEVOTHYROXINE 88MCG TABLET (0.088 MG) PO SCH (07:11)
[2021-03-20] MEDS: TIOTROPIUM INHALER/CAPSULE (SPIRIVA) INH SCH (07:28)
[2021-03-20 07:32] VITALS: BP 131/67
[2021-03-20] MEDS ORDERED: guaiFENesin ER 600 MG TAB PO SCH (09:00)
[2021-03-20] MEDS: NICOTINE 21MG/24HR 1 EA TRANSDERMAL TD SCH (09:00)
[2021-03-20] MEDS: HumaLOG INSULIN (NovoLOG) PER UNIT SC SCH ×2 (09:14→12:20)
[2021-03-20] MEDS: ATORVASTATIN 20 MG TAB PO SCH (09:15)
[2021-03-20] MEDS: LEVEMIR (INSULIN DETEMIR) 1 UNITS/0.01ML SC SCH (09:15)
[2021-03-20] MEDS: PANTOPRAZOLE 40MG TAB (PROTONIX) PO SCH (09:15)
[2021-03-20] MEDS: DOCUSATE SODIUM 100MG CAPSULE PO SCH (09:15)
[2021-03-20] MEDS: ENOXAPARIN 40MG/0.4ML SYRINGE (J1650 PER 10MG) SC SCH (09:15)
[2021-03-20 09:16] VITALS: BP 131/67
[2021-03-20] MEDS: predniSONE 20 MG TAB PO SCH (09:16)
[2021-03-20] MEDS: diltiaZEM **CD** 180 MG CAP PO SCH (09:16)
[2021-03-20] MEDS: EZETIMIBE 10 MG TAB (ZETIA) PO SCH (09:16)
[2021-03-20] MEDS: THEOPHYLLINE (THEO-24) 100MG SR **CAPSULE PO SCH (09:17)
[2021-03-20] MEDS: SENNA 8.6 MG TAB (SENOKOT) PO SCH (09:17)
[2021-03-20] MEDS: ASPIRIN 81MG ENTERIC TABLET PO SCH (09:17)
[2021-03-20] MEDS: PERCOCET 5MG/325MG TAB PO PRN (10:55)
[2021-03-20] MEDS ORDERED: KETOROLAC 30 MG/ML 1ML VIAL IV ONE (11:05)
[2021-03-20] MEDS ORDERED: LACTULOSE 20 GM/30 ML SYRUP UD PO ONE ×2 (11:10→15:15)
[2021-03-20] MEDS: NYSTATIN 500,000 U/5 ML SUSP UDC SS SCH ×2 (11:38→16:16)
[2021-03-20 11:44] VITALS: BP 192/58
[2021-03-20 11:59] LABS: TROPONIN I 0.06 NG/ML (< 0.10)
[2021-03-20 13:50] VITALS: BP 139/75
[2021-03-20] MEDS ORDERED: PIPERACILLIN/TAZOBACTAM SOD 4.5 GM in D5W MINI-BAG PLUS 50 ML IV SCH (15:00)
--- NOTE | 2021-03-20 15:14 | IPNPDOC ---
Date Seen The patient was seen on 03/20/21. Progress Note SUBJECTIVE: Increased sore throat, red, ? thrush. Strep neg. Increased phlegm, BS better controlled. Given dose of toradol, chest pain with coughing, trop neg. Highly anxious. She denies any palpitations, fevers, chills, nausea, vomiting, diarrhea, lower extremity edema. OBJECTIVE: PHYSICAL EXAMINATION: VITAL SIGNS: please see below General: NAD but tearful at times, AAOx3 HEENT: PERRLA, EOMI, sclerae clear, beefy red throat, no exudate seen. Possbile thrush seen on tongue Neck: supple, normal ROM, no JVD Respiratory: Fair entry bilaterally. very mild exp wheezing- patient states this can be normal for her . No crackles at lung bases. No rhonchi, no rales. CVS: RRR, normal S1, S2, no murmurs Abdo: soft, no masses, no hepatosplenomegaly, BS+, no rebound tenderness Extremities: +1 edema bilaterally LE MSK: no joint deformities, normal ROM Neuro: no focal neuro deficits, moving all 4 extremities, CN2-12 intact. Strength 5/5 in all 4 extremities. No nystagmus. Psych: calm, cooperative, AAO x 3 LABORATORY DATA: Please see below MICROBIOLOGY: BCx 1 set 03/15/21: Staph epi BCx 1 set 03/15/21: NG repeat BCx x 2 sets: NG to date as of later this afternoon Rapid strep: neg Throat cx: pending IMAGING STUDIES: CXR post-biopsy 03/18/21: No acute abnormalities Echocardiogram 03/15/21: EF 75% Normal sinus rhythm without intraventricular conduction disturbance. Technically challenging study in light of the patients longstanding smoking history/chronic obstructive pulmonary disease (COPD), but some diagnostically useful information was still obtained. M-mode and two-dimensional echocardiography was performed with pulse, continuouswave, color flow, and tissue Doppler studies. Mild concentric left ventricular hypertrophy with hyperkinetic wall motion. Borderline left atrial enlargement with grade 1 LV diastolic dysfunction, but currently normal estimated mean left atrial pressure. Normal right heart chamber sizes and motion with Doppler sign of mild pulmonary hypertension. Normal IVC size and collapse against an elevated central venous pressure. Normal aortic root diameter. Mild aortic valvular sclerosis with adequate cusp separation. The observed transvalvular gradient is related to hyperkinetic flow. Her dimensionless index was normal against any form of left ventricular outflow tract obstruction. Therewas no aortic insufficiency. Mild mitral annular calcification without more than trace mitral insufficiency. Normal appearing tricuspid valve with no more than trace insufficiency. We could not visualize any intracardiac mass. There was miniscule pericardial effusion. ASSESSMENT: Mrs. Cai is a 80-year-old female with a history of chronic oxygen-dependent respiratory failure, COPD, chronic diastolic congestive heart failure, now has insulin-dependent diabetes, history of PE, hypertension, admitted to hospital for management of hypertensive urgency as well as acute COPD exacerbation. PLAN: Sore throat, r/o thrush vs. other infection -WBC mildly elevated compared to 03/19/21, afebrile -Pain on anterior tongue, throat, incr cough -Strep neg, throat culture pending -Starting on nystatin SS QID Chest pain 2/2 to increased coughing with sore throat -Trop neg, not suspecting cardiac cause at this time -f/u BNP -Monitor closely Constipation -no BM since admission -BR in place -Given 2 doses lactulose thus far, consider enema Acute on chronic respiratory failure 2/2 to COPD exacerbation, possible PNA, lung CA (see below ) -Remains on 2 L NC ATC, mild exp wheezing but continuing to improving slowly, increased coughing -WBC 14.8K, slightly increased, afebrile -no sputum cx obtained -C/w prednisone PO, duonebs, spiriva, holding theophylline while being treated for PNA. Zosyn for abx until discharge, then can, per pulmonary, d/c with levofloxacin for 4 additional days - will complete 10 day treatment course -Pulmonology has seen inpatient, patient can f/u with her reimbursement spec (Dr. 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 -4/TR -Discussed with Dr. Pruitt who will see patient in office and arrange her to follow up with radiation oncology as o/p -Will report results to patient today Uncontrolled hyperglycemia, DM type II likely 2/2 to steroids -BS better controlled -On levemir BID -C/w ISS, consistent carb diet, deescalate steroids Staphylococcus epidermidis bacteremia, likely contaminate -BCx above -Repeat BCx NG Anxiety, labile mood likely 2/2 to steroids, underlying anxiety? -No prior history Lactic acidosis likely 2/2 to severe COPD, chronic pulmonary HTN. Cannot also r/o 2/2 to malignancy -Less likely to be from sepsis -Perfusing well, renal fx at baseline Chronic HFpEF -F/u BNP -Echo report reviewed from 01/15/21: Grade 1 diastolic dysfunction. Mild pulmonary HTN. LVEF 75%. -Euvolemic Hypothyroidism - c/w levothyroxine Dyslipidemia - c/w Zetia and Statin DVT px -lovenox Resolved issues: SVT HTN Urgency RAJI Acute hypokalemia DISPOSITION: C/w treatment above. D/c home when medically improved to follow with pulmonary, PCP VS, I&O, 24H, Fishbone Vital Signs/I&O Vital Signs Date Time Temp Pulse Resp B/P (MAP) Pulse Ox O2 Delivery O2 Flow Rate FiO2 03/20/21 14:03 1.0 03/20/21 13:50 98.1 120 20 139/75 (96) 95 Nasal Cannula I&O- Last 24 Hours up to 6 AM 03/20/21 06:00 Intake Total 1060 ml Output Total 1900 ml Balance -840 ml Laboratory Data 24H LABS Laboratory Tests 2 03/19/21 17:22: Bedside Glucose (Misc Panel) 250H 03/19/21 21:21: Bedside Glucose (Misc Panel) 346H 03/20/21 05:42: Nucleated Red Blood Cells % (auto) 0.1H, Anion Gap 4L, Glomerular Filtration Rate > 60.0, Calcium Level 8.9, Total Bilirubin 0.3, Aspartate Amino Transf (AST/SGOT) 9, Alanine Aminotransferase (ALT/SGPT) 12, Alkaline Phosphatase 48, Total Protein 5.4L, Albumin 2.7L, Albumin/Globulin Ratio 1.0L 03/20/21 11:18: Troponin I 0.06 03/20/21 11:53: Bedside Glucose (Misc Panel) 168H CBC/BMP Laboratory Tests 03/20/21 05:42 Microbiology Microbiology 03/20/21 Group A Streptococcus Screen ([facility]) - Final, Resulted 03/20/21 Eye/Ear/Nose/Throat Culture, Resulted Pending 03/18/21 Blood Culture - Preliminary, Resulted No Growth after 48 hours. All Specime... 03/18/21 Blood Culture - Preliminary, Resulted No Growth after 48 hours. All Specime... 03/15/21 Blood Culture - Final, Complete NO GROWTH AFTER 5 DAYS 03/15/21 Blood Culture - Final, Complete Staphylococcus Epidermidis 03/14/21 Respiratory Virus Panel (PCR) ([facility]) - Final, Complete Current Medications Current Medications Medications (Trade) Dose Ordered Sig/Idalia Route PRN Reason Start Time Stop Time Status Last Admin Dose Admin Acetaminophen (Tylenol Tab) 650 mg Q4H PRN PO PAIN OR FEVER 03/15/21 03:20 03/16/21 23:59 Al Hydrox/Mg Hydrox/Simethicone (Mylanta) 30 ml DAILY PRN PO DYSPEPSIA 03/15/21 03:20 Albuterol Sulfate (Proventil Neb) 2.5 mg Q1HP PRN NEB SHORTNESS OF BREATH 03/15/21 03:20 Albuterol/ Ipratropium (Duoneb (Ipr 0.5mg/Alb 2.5mg)) 3 ml RQ6H NEB 03/15/21 08:00 03/20/21 13:12 Amlodipine Besylate (Norvasc) 2.5 mg DAILY PO 03/16/21 09:00 03/16/21 04:08 DC Amlodipine Besylate (Norvasc) 5 mg DAILY PO 03/16/21 02:40 03/16/21 03:23 DC Aspirin (Ecotrin) 81 mg DAILY PO 03/15/21 09:00 03/20/21 09:17 Atorvastatin Calcium (Lipitor) 40 mg DAILY PO 03/15/21 09:00 03/20/21 09:15 Dextrose (Dextrose 50%) 25 ml ASDIRECTED PRN IV SEE LABEL COMMENTS 03/15/21 06:55 Digoxin (Lanoxin) 0.125 mg DAILY PO 03/16/21 12:20 03/16/21 13:23 DC Diltiazem HCl (Cardizem Cd) 180 mg DAILY PO 03/16/21 09:00 03/20/21 09:16 Diltiazem HCl 125 mg/Sodium Chloride 125 ml @ 5 mls/hr Q24H IV 03/15/21 04:00 03/15/21 08:18 DC 03/15/21 04:56 Diltiazem HCl 125 mg/Sodium Chloride 125 ml @ 5 mls/hr Q24H IV 03/15/21 07:45 UNV Docusate Sodium (Colace) 100 mg BID PO 03/19/21 09:00 03/20/21 09:15 Enoxaparin Sodium (Lovenox) 40 mg DAILY SC 03/15/21 09:00 03/20/21 09:15 EZETIMIBE (Zetia) 10 mg DAILY PO 03/15/21 09:00 03/20/21 09:16 Furosemide (LASIX injection) 40 mg Q8H IV 03/16/21 09:00 03/17/21 12:32 DC 03/17/21 09:14 Glucagon (Glucagon) 1 mg ASDIRECTED PRN SC SEE LABEL COMMENTS 03/15/21 06:55 Glucose (Glucose) 16 GM ASDIRECTED PRN PO SEE LABEL COMMENTS 03/15/21 06:55 Guaifenesin (Mucinex Tab Er) 600 mg BID PO 03/20/21 09:00 03/20/21 11:37 Home Med (Med Rec Complete!) ASDIRECTED XX 03/15/21 03:10 03/15/21 03:20 DC Hydralazine HCl (Apresoline) 10 mg Q8HP PRN IV SEE PROTOCOL 03/19/21 11:25 03/20/21 13:50 DC 03/19/21 12:50 Hydralazine HCl (Apresoline) 10 mg STAT STAT IV 03/15/21 02:28 03/15/21 02:29 DC 03/15/21 03:03 Hydralazine HCl (Apresoline) 25 mg Q8H PO 03/16/21 17:00 03/17/21 19:26 DC 03/17/21 16:20 Hydralazine HCl (Apresoline) 50 mg Q8H PO 03/18/21 01:00 03/20/21 09:16 Insulin Detemir (Levemir Insulin) 15 units QAM SC 03/15/21 12:45 03/17/21 06:22 DC 03/16/21 09:15 Insulin Detemir (Levemir Insulin) 15 units QHS SC 03/18/21 21:00 03/19/21 08:04 DC 03/18/21 20:37 Insulin Detemir (Levemir Insulin) 18 units QAM SC 03/17/21 09:00 03/18/21 08:00 DC 03/17/21 09:15 Insulin Detemir (Levemir Insulin) 23 units QHS SC 03/19/21 21:00 03/19/21 21:41 Insulin Detemir (Levemir Insulin) 28 units QAM SC 03/18/21 09:00 03/19/21 08:04 DC 03/18/21 08:22 Insulin Detemir (Levemir Insulin) 32 units QAM SC 03/19/21 09:00 03/20/21 09:15 Insulin Human Lispro (HumaLOG INSULIN) SEE PROTOCOL TABLE AC SC 03/15/21 07:30 03/20/21 12:20 Insulin Human Lispro (HumaLOG INSULIN) SEE PROTOCOL TABLE QHS SC 03/15/21 21:00 03/19/21 21:39 Labetalol HCl (Normodyne, Trandate) 10 mg Q6H PRN IV SBP > 180 mmhg 03/15/21 07:45 03/20/21 13:50 DC 03/16/21 02:09 Levothyroxine Sodium (Synthroid) 88 mcg DAILY@06 PO 03/15/21 06:00 03/20/21 07:11 Losartan Potassium (Cozaar) 100 mg QHS PO 03/15/21 21:00 03/19/21 21:38 Magnesium Hydroxide (Milk Of Magnesia) 30 ml DAILY PRN PO CONSTIPATION 03/15/21 03:20 Methylprednisolone (SOLUmedrol) 60 mg Q12H IV 03/18/21 20:00 03/19/21 08:03 DC 03/18/21 20:36 Methylprednisolone (SOLUmedrol) 60 mg Q8H IV 03/15/21 18:00 03/18/21 10:34 DC 03/18/21 08:21 Methylprednisolone (SOLUmedrol) 125 mg STAT STAT IV 03/15/21 03:17 03/15/21 03:30 DC 03/15/21 04:30 Miscellaneous (Unresolved Patient Own Med Order) SEE LABEL COMMENTS DAILY XX 03/15/21 09:00 03/15/21 15:25 DC Nicotine (Nicoderm Cq 21mg) 1 patch DAILY TD 03/15/21 09:00 Nystatin (Mycostatin) 5 ml QID SS 03/20/21 13:00 03/20/21 11:38 Oxycodone/ Acetaminophen (Percocet 5mg/ 325mg Tablet) 1 tab BID PRN PO PAIN 03/15/21 04:10 03/20/21 10:55 Pantoprazole Sodium (Protonix) 40 mg DAILY PO 03/15/21 09:00 03/20/21 09:15 Patient Own Medication (Patient'S Own Med) SYNTHROID 88MCG/TAB (BR... DAILY@0600 PO 03/15/21 06:00 03/15/21 15:26 DC Piperacillin Sod/ Tazobactam Sod 3.375 gm/Dextrose 50 ml @ 50 mls/hr Q6H IV 03/17/21 15:00 03/20/21 11:09 DC 03/20/21 09:17 Piperacillin Sod/ Tazobactam Sod 4.5 gm/Dextrose 50 ml @ 50 mls/hr Q6H IV 03/15/21 09:00 03/17/21 10:15 DC 03/17/21 09:17 Piperacillin Sod/ Tazobactam Sod 4.5 gm/Dextrose 50 ml @ 50 mls/hr Q6H IV 03/20/21 15:00 Polyethylene Glycol (Miralax) 1 pkt DAILYPRN PRN PO CONSTIPATION 03/19/21 11:25 Prednisone (Deltasone) 40 mg DAILY PO 03/15/21 09:00 03/15/21 16:26 DC 03/15/21 09:26 Prednisone (Deltasone) 60 mg DAILY PO 03/19/21 09:00 03/20/21 09:16 Senna (Senokot) 2 tab DAILY PO 03/19/21 09:00 03/20/21 09:17 Sodium Chloride 1,000 ml @ 125 mls/hr Q8H IV 03/15/21 20:00 03/16/21 02:42 DC 03/15/21 19:48 Theophylline (Terrence-24) 300 mg BID PO 03/15/21 09:00 03/20/21 09:17 Tiotropium Supply (Spiriva Handihaler) 1 inhalation DAILY@0800 INH 03/15/21 08:00 03/20/21 07:28 Allergies Coded Allergies: Cephalosporins (Verified Allergy, Mild, RASH, 07/17/19) apixaban (Verified Allergy, Mild, RASH, 07/17/19) carisoprodol (Verified Allergy, Mild, RASH, 07/17/19) clavulanic acid (Verified Allergy, Mild, VOMITING, RASH, 01/17/20) AMOXICILLIN, PENICILLIN, AMPICILLIN OK PER PT codeine (Verified Allergy, Mild, RASH, 07/17/19) Sulfa (Sulfonamide Antibiotics) (Verified Allergy, Unknown, UNKNOWN RXN A CHILD, 07/17/19) Current Medications Current Medications Medications (Trade) Dose Ordered Sig/Idalia Route PRN Reason Start Time Stop Time Status Last Admin Dose Admin Acetaminophen (Tylenol Tab) 650 mg Q4H PRN PO PAIN OR FEVER 03/15/21 03:20 03/16/21 23:59 Al Hydrox/Mg Hydrox/Simethicone (Mylanta) 30 ml DAILY PRN PO DYSPEPSIA 03/15/21 03:20 Albuterol Sulfate (Proventil Neb) 2.5 mg Q1HP PRN NEB SHORTNESS OF BREATH 03/15/21 03:20 Albuterol/ Ipratropium (Duoneb (Ipr 0.5mg/Alb 2.5mg)) 3 ml RQ6H NEB 03/15/21 08:00 03/20/21 13:12 Amlodipine Besylate (Norvasc) 2.5 mg DAILY PO 03/16/21 09:00 03/16/21 04:08 DC Amlodipine Besylate (Norvasc) 5 mg DAILY PO 03/16/21 02:40 03/16/21 03:23 DC Aspirin (Ecotrin) 81 mg DAILY PO 03/15/21 09:00 03/20/21 09:17 Atorvastatin Calcium (Lipitor) 40 mg DAILY PO 03/15/21 09:00 03/20/21 09:15 Dextrose (Dextrose 50%) 25 ml ASDIRECTED PRN IV SEE LABEL COMMENTS 03/15/21 06:55 Digoxin (Lanoxin) 0.125 mg DAILY PO 03/16/21 12:20 03/16/21 13:23 DC Diltiazem HCl (Cardizem Cd) 180 mg DAILY PO 03/16/21 09:00 03/20/21 09:16 Diltiazem HCl 125 mg/Sodium Chloride 125 ml @ 5 mls/hr Q24H IV 03/15/21 04:00 03/15/21 08:18 DC 03/15/21 04:56 Diltiazem HCl 125 mg/Sodium Chloride 125 ml @ 5 mls/hr Q24H IV 03/15/21 07:45 UNV Docusate Sodium (Colace) 100 mg BID PO 03/19/21 09:00 03/20/21 09:15 Enoxaparin Sodium (Lovenox) 40 mg DAILY SC 03/15/21 09:00 03/20/21 09:15 EZETIMIBE (Zetia) 10 mg DAILY PO 03/15/21 09:00 03/20/21 09:16 Furosemide (LASIX injection) 40 mg Q8H IV 03/16/21 09:00 03/17/21 12:32 DC 03/17/21 09:14 Glucagon (Glucagon) 1 mg ASDIRECTED PRN SC SEE LABEL COMMENTS 03/15/21 06:55 Glucose (Glucose) 16 GM ASDIRECTED PRN PO SEE LABEL COMMENTS 03/15/21 06:55 Guaifenesin (Mucinex Tab Er) 600 mg BID PO 03/20/21 09:00 03/20/21 11:37 Home Med (Med Rec Complete!) ASDIRECTED XX 03/15/21 03:10 03/15/21 03:20 DC Hydralazine HCl (Apresoline) 10 mg Q8HP PRN IV SEE PROTOCOL 03/19/21 11:25 03/20/21 13:50 DC 03/19/21 12:50 Hydralazine HCl (Apresoline) 10 mg STAT STAT IV 03/15/21 02:28 03/15/21 02:29 DC 03/15/21 03:03 Hydralazine HCl (Apresoline) 25 mg Q8H PO 03/16/21 17:00 03/17/21 19:26 DC 03/17/21 16:20 Hydralazine HCl (Apresoline) 50 mg Q8H PO 03/18/21 01:00 03/20/21 09:16 Insulin Detemir (Levemir Insulin) 15 units QAM SC 03/15/21 12:45 03/17/21 06:22 DC 03/16/21 09:15 Insulin Detemir (Levemir Insulin) 15 units QHS SC 03/18/21 21:00 03/19/21 08:04 DC 03/18/21 20:37 Insulin Detemir (Levemir Insulin) 18 units QAM SC 03/17/21 09:00 03/18/21 08:00 DC 03/17/21 09:15 Insulin Detemir (Levemir Insulin) 23 units QHS SC 03/19/21 21:00 03/19/21 21:41 Insulin Detemir (Levemir Insulin) 28 units QAM SC 03/18/21 09:00 03/19/21 08:04 DC 03/18/21 08:22 Insulin Detemir (Levemir Insulin) 32 units QAM SC 03/19/21 09:00 03/20/21 09:15 Insulin Human Lispro (HumaLOG INSULIN) SEE PROTOCOL TABLE AC SC 03/15/21 07:30 03/20/21 12:20 Insulin Human Lispro (HumaLOG INSULIN) SEE PROTOCOL TABLE QHS SC 03/15/21 21:00 03/19/21 21:39 Labetalol HCl (Normodyne, Trandate) 10 mg Q6H PRN IV SBP > 180 mmhg 03/15/21 07:45 03/20/21 13:50 DC 03/16/21 02:09 Levothyroxine Sodium (Synthroid) 88 mcg DAILY@06 PO 03/15/21 06:00 03/20/21 07:11 Losartan Potassium (Cozaar) 100 mg QHS PO 03/15/21 21:00 03/19/21 21:38 Magnesium Hydroxide (Milk Of Magnesia) 30 ml DAILY PRN PO CONSTIPATION 03/15/21 03:20 Methylprednisolone (SOLUmedrol) 60 mg Q12H IV 03/18/21 20:00 03/19/21 08:03 DC 03/18/21 20:36 Methylprednisolone (SOLUmedrol) 60 mg Q8H IV 03/15/21 18:00 03/18/21 10:34 DC 03/18/21 08:21 Methylprednisolone (SOLUmedrol) 125 mg STAT STAT IV 03/15/21 03:17 03/15/21 03:30 DC 03/15/21 04:30 Miscellaneous (Unresolved Patient Own Med Order) SEE LABEL COMMENTS DAILY XX 03/15/21 09:00 03/15/21 15:25 DC Nicotine (Nicoderm Cq 21mg) 1 patch DAILY TD 03/15/21 09:00 Nystatin (Mycostatin) 5 ml QID SS 03/20/21 13:00 03/20/21 11:38 Oxycodone/ Acetaminophen (Percocet 5mg/ 325mg Tablet) 1 tab BID PRN PO PAIN 03/15/21 04:10 03/20/21 10:55 Pantoprazole Sodium (Protonix) 40 mg DAILY PO 03/15/21 09:00 03/20/21 09:15 Patient Own Medication (Patient'S Own Med) SYNTHROID 88MCG/TAB (BR... DAILY@0600 PO 03/15/21 06:00 03/15/21 15:26 DC Piperacillin Sod/ Tazobactam Sod 3.375 gm/Dextrose 50 ml @ 50 mls/hr Q6H IV 03/17/21 15:00 03/20/21 11:09 DC 03/20/21 09:17 Piperacillin Sod/ Tazobactam Sod 4.5 gm/Dextrose 50 ml @ 50 mls/hr Q6H IV 03/15/21 09:00 03/17/21 10:15 DC 03/17/21 09:17 Piperacillin Sod/ Tazobactam Sod 4.5 gm/Dextrose 50 ml @ 50 mls/hr Q6H IV 03/20/21 15:00 Polyethylene Glycol (Miralax) 1 pkt DAILYPRN PRN PO CONSTIPATION 03/19/21 11:25 Prednisone (Deltasone) 40 mg DAILY PO 03/15/21 09:00 03/15/21 16:26 DC 03/15/21 09:26 Prednisone (Deltasone) 60 mg DAILY PO 03/19/21 09:00 03/20/21 09:16 Senna (Senokot) 2 tab DAILY PO 03/19/21 09:00 03/20/21 09:17 Sodium Chloride 1,000 ml @ 125 mls/hr Q8H IV 03/15/21 20:00 03/16/21 02:42 DC 03/15/21 19:48 Theophylline (Terrence-24) 300 mg BID PO 03/15/21 09:00 03/20/21 09:17 Tiotropium Supply (Spiriva Handihaler) 1 inhalation DAILY@0800 INH 03/15/21 08:00 03/20/21 07:28 Current Medications Current Medications Medications (Trade) Dose Ordered Sig/Idalia Route PRN Reason Start Time Stop Time Status Last Admin Dose Admin Acetaminophen (Tylenol Tab) 650 mg Q4H PRN PO PAIN OR FEVER 03/15/21 03:20 03/16/21 23:59 Al Hydrox/Mg Hydrox/Simethicone (Mylanta) 30 ml DAILY PRN PO DYSPEPSIA 03/15/21 03:20 Albuterol Sulfate (Proventil Neb) 2.5 mg Q1HP PRN NEB SHORTNESS OF BREATH 03/15/21 03:20 Albuterol/ Ipratropium (Duoneb (Ipr 0.5mg/Alb 2.5mg)) 3 ml RQ6H NEB 03/15/21 08:00 03/20/21 13:12 Amlodipine Besylate (Norvasc) 2.5 mg DAILY PO 03/16/21 09:00 03/16/21 04:08 DC Amlodipine Besylate (Norvasc) 5 mg DAILY PO 03/16/21 02:40 03/16/21 03:23 DC Aspirin (Ecotrin) 81 mg DAILY PO 03/15/21 09:00 03/20/21 09:17 Atorvastatin Calcium (Lipitor) 40 mg DAILY PO 03/15/21 09:00 03/20/21 09:15 Dextrose (Dextrose 50%) 25 ml ASDIRECTED PRN IV SEE LABEL COMMENTS 03/15/21 06:55 Digoxin (Lanoxin) 0.125 mg DAILY PO 03/16/21 12:20 03/16/21 13:23 DC Diltiazem HCl (Cardizem Cd) 180 mg DAILY PO 03/16/21 09:00 03/20/21 09:16 Diltiazem HCl 125 mg/Sodium Chloride 125 ml @ 5 mls/hr Q24H IV 03/15/21 04:00 03/15/21 08:18 DC 03/15/21 04:56 Diltiazem HCl 125 mg/Sodium Chloride 125 ml @ 5 mls/hr Q24H IV 03/15/21 07:45 UNV Docusate Sodium (Colace) 100 mg BID PO 03/19/21 09:00 03/20/21 09:15 Enoxaparin Sodium (Lovenox) 40 mg DAILY SC 03/15/21 09:00 03/20/21 09:15 EZETIMIBE (Zetia) 10 mg DAILY PO 03/15/21 09:00 03/20/21 09:16 Furosemide (LASIX injection) 40 mg Q8H IV 03/16/21 09:00 03/17/21 12:32 DC 03/17/21 09:14 Glucagon (Glucagon) 1 mg ASDIRECTED PRN SC SEE LABEL COMMENTS 03/15/21 06:55 Glucose (Glucose) 16 GM ASDIRECTED PRN PO SEE LABEL COMMENTS 03/15/21 06:55 Guaifenesin (Mucinex Tab Er) 600 mg BID PO 03/20/21 09:00 03/20/21 11:37 Home Med (Med Rec Complete!) ASDIRECTED XX 03/15/21 03:10 03/15/21 03:20 DC Hydralazine HCl (Apresoline) 10 mg Q8HP PRN IV SEE PROTOCOL 03/19/21 11:25 03/20/21 13:50 DC 03/19/21 12:50 Hydralazine HCl (Apresoline) 10 mg STAT STAT IV 03/15/21 02:28 03/15/21 02:29 DC 03/15/21 03:03 Hydralazine HCl (Apresoline) 25 mg Q8H PO 03/16/21 17:00 03/17/21 19:26 DC 03/17/21 16:20 Hydralazine HCl (Apresoline) 50 mg Q8H PO 03/18/21 01:00 03/20/21 09:16 Insulin Detemir (Levemir Insulin) 15 units QAM SC 03/15/21 12:45 03/17/21 06:22 DC 03/16/21 09:15 Insulin Detemir (Levemir Insulin) 15 units QHS SC 03/18/21 21:00 03/19/21 08:04 DC 03/18/21 20:37 Insulin Detemir (Levemir Insulin) 18 units QAM SC 03/17/21 09:00 03/18/21 08:00 DC 03/17/21 09:15 Insulin Detemir (Levemir Insulin) 23 units QHS SC 03/19/21 21:00 03/19/21 21:41 Insulin Detemir (Levemir Insulin) 28 units QAM SC 03/18/21 09:00 03/19/21 08:04 DC 03/18/21 08:22 Insulin Detemir (Levemir Insulin) 32 units QAM SC 03/19/21 09:00 03/20/21 09:15 Insulin Human Lispro (HumaLOG INSULIN) SEE PROTOCOL TABLE AC SC 03/15/21 07:30 03/20/21 12:20 Insulin Human Lispro (HumaLOG INSULIN) SEE PROTOCOL TABLE QHS SC 03/15/21 21:00 03/19/21 21:39 Labetalol HCl (Normodyne, Trandate) 10 mg Q6H PRN IV SBP > 180 mmhg 03/15/21 07:45 03/20/21 13:50 DC 03/16/21 02:09 Levothyroxine Sodium (Synthroid) 88 mcg DAILY@06 PO 03/15/21 06:00 03/20/21 07:11 Losartan Potassium (Cozaar) 100 mg QHS PO 03/15/21 21:00 03/19/21 21:38 Magnesium Hydroxide (Milk Of Magnesia) 30 ml DAILY PRN PO CONSTIPATION 03/15/21 03:20 Methylprednisolone (SOLUmedrol) 60 mg Q12H IV 03/18/21 20:00 03/19/21 08:03 DC 03/18/21 20:36 Methylprednisolone (SOLUmedrol) 60 mg Q8H IV 03/15/21 18:00 03/18/21 10:34 DC 03/18/21 08:21 Methylprednisolone (SOLUmedrol) 125 mg STAT STAT IV 03/15/21 03:17 03/15/21 03:30 DC 03/15/21 04:30 Miscellaneous (Unresolved Patient Own Med Order) SEE LABEL COMMENTS DAILY XX 03/15/21 09:00 03/15/21 15:25 DC Nicotine (Nicoderm Cq 21mg) 1 patch DAILY TD 03/15/21 09:00 Nystatin (Mycostatin) 5 ml QID SS 03/20/21 13:00 03/20/21 11:38 Oxycodone/ Acetaminophen (Percocet 5mg/ 325mg Tablet) 1 tab BID PRN PO PAIN 03/15/21 04:10 03/20/21 10:55 Pantoprazole Sodium (Protonix) 40 mg DAILY PO 03/15/21 09:00 03/20/21 09:15 Patient Own Medication (Patient'S Own Med) SYNTHROID 88MCG/TAB (BR... DAILY@0600 PO 03/15/21 06:00 03/15/21 15:26 DC Piperacillin Sod/ Tazobactam Sod 3.375 gm/Dextrose 50 ml @ 50 mls/hr Q6H IV 03/17/21 15:00 03/20/21 11:09 DC 03/20/21 09:17 Piperacillin Sod/ Tazobactam Sod 4.5 gm/Dextrose 50 ml @ 50 mls/hr Q6H IV 03/15/21 09:00 03/17/21 10:15 DC 03/17/21 09:17 Piperacillin Sod/ Tazobactam Sod 4.5 gm/Dextrose 50 ml @ 50 mls/hr Q6H IV 03/20/21 15:00 Polyethylene Glycol (Miralax) 1 pkt DAILYPRN PRN PO CONSTIPATION 03/19/21 11:25 Prednisone (Deltasone) 40 mg DAILY PO 03/15/21 09:00 03/15/21 16:26 DC 03/15/21 09:26 Prednisone (Deltasone) 60 mg DAILY PO 03/19/21 09:00 03/20/21 09:16 Senna (Senokot) 2 tab DAILY PO 03/19/21 09:00 03/20/21 09:17 Sodium Chloride 1,000 ml @ 125 mls/hr Q8H IV 03/15/21 20:00 03/16/21 02:42 DC 03/15/21 19:48 Theophylline (Terrence-24) 300 mg BID PO 03/15/21 09:00 03/20/21 09:17 Tiotropium Supply (Spiriva Handihaler) 1 inhalation DAILY@0800 INH 03/15/21 08:00 03/20/21 07:28 Livier Harman MD Mar 20, 2021 15:14
[2021-03-20] MEDS ORDERED: NYST50SS PO (15:34)
--- NOTE | 2021-03-20 16:44 | DS.PDOC ---
Discharge Summary General Date of Admission Mar 15, 2021 at 03:17 Date of Discharge 03/20/21 Attending Physician: Livier Harman MD Discharge Summary HISTORY OF PRESENT ILLNESS: This 80 yr old F was diagnosed w PNA on Wednesday and put on Levaquin, nevertheless her dyspnea became worse; she has also had a productive cough, subjective fever/chills and left sided chest pain. She denies having lower extremity edema and or palpitations. During transport to the ER she had a run of SVT that converted w adenosine. She ultimately was admitted for acute on chronic respiratory failure 2/2 to COPD exacerbation, PNA, RAJI, hypertensive urgency. HOSPITAL COURSE: During hospital course, patient was treated with IV and later PO steroids improving lung status. She remained on duoneb treatments. Remains on 2 L NC ATC, mild exp wheezing but continuing to improving slowly, increased coughing today. WBC 14.8K and likely increased 2/2 to steroids, she remained afebrile. No sputum cx obtained. It was instructed by pulmonary to hold theophylline while being treated for PNA. She was on IV Zosyn for abx until her discharge, then can, per pulmonary, d/c with levofloxacin for 4 additional days - will complete 10 day treatment course. Pulmonology has seen inpatient, patient can f/u with her ocean fishing guide (Dr. Pruitt). She had a lung biopsy of lung mass identified on imaging, later returned on 03/20/21 as adenocarcinoma. Results were reviewed with Dr. Pruitt and given to patient. She is to follow up with Dr. Pruitt as o/p to further discuss treatment. On 03/20/21, day of discharge, patient complained of increased coughing with sore throat/tongue. Strep was neg, throat culture sent, Suspected thrush as well. She was started on nystatin SS and was told that we would f/u on throat cx. She received a bowel regimen and multiple doses of lactulose for constipation. initial blood cultures grew Staphylococcus epidermidis , likely contaminate with repeat cultures neg. On 03/20/21 she was discharged home to complete additional 4 days of PO levofloxacin and f/u with pulmonary associates. PAST MEDICAL/ SURGICAL HISTORY: COPD Chronic O2 dependent respiratory failure Chronic Diastolic CHF / Grade 1 DD NIDDM Remote hx of Pulmonary embolism (diagnosed in June 2018 based on previous not es she stopped taking apixaban on her own bc of "itchy skin" and GI bleed, but today she reported she stopped taking the med when the script ran out) Chronic Hypertension Hypothyroidism Chronic back and shoulder pain Dyslipidemia Hearing loss Osteoporosis based on the presence of a T4 wedge compression fracture on CT of the chest Moderate MVR Unsteady gait inconsistently uses walker Depression /Anxiety Chronic adrenal nodule s/p Partial thyroidectomy s/p tonsillectomy s/p umbilical hernia repair s/p b/l cataract removal SOCIAL HISTORY: + tobacco / lives w and grand-daughter FAMILY HISTORY: Lung Cancer (in siblings), Diabetes (father), Heart disease (mother), Hypertension (mother) DISCHARGE MEDICATIONS: Please see below PHYSICAL EXAMINATION: VITAL SIGNS: please see below General: NAD , anxious today, AAOx3 HEENT: PERRLA, EOMI, sclerae clear, beefy red throat, no exudate seen. Possbile thrush seen on tongue Neck: supple, normal ROM, no JVD Respiratory: Fair entry bilaterally. very mild exp wheezing- patient states this can be normal for her . No crackles at lung bases. No rhonchi, no rales. CVS: RRR, normal S1, S2, no murmurs Abdo: soft, no masses, no hepatosplenomegaly, BS+, no rebound tenderness Extremities: +1 edema bilaterally LE MSK: no joint deformities, normal ROM Neuro: no focal neuro deficits, moving all 4 extremities, CN2-12 intact. Strength 5/5 in all 4 extremities. No nystagmus. Psych: calm, cooperative, AAO x 3 LABORATORY DATA: Please see below MICROBIOLOGY: BCx 1 set 03/15/21: Staph epi BCx 1 set 03/15/21: NG repeat BCx x 2 sets: NG to date as of later this afternoon Rapid strep: neg Throat cx: pending IMAGING STUDIES: CXR post-biopsy 03/18/21: No acute abnormalities Echocardiogram 03/15/21: EF 75% Normal sinus rhythm without intraventricular conduction disturbance. Technically challenging study in light of the patients longstanding smoking history/chronic obstructive pulmonary disease (COPD), but some diagnostically useful information was still obtained. M-mode and two-dimensional echocardiography was performed with pulse, continuouswave, color flow, and tissue Doppler studies. Mild concentric left ventricular hypertrophy with hyperkinetic wall motion. Borderline left atrial enlargement with grade 1 LV diastolic dysfunction, but currently normal estimated mean left atrial pressure. Normal right heart chamber sizes and motion with Doppler sign of mild pulmonary hypertension. Normal IVC size and collapse against an elevated central venous pressure. Normal aortic root diameter. Mild aortic valvular sclerosis with adequate cusp separation. The observed transvalvular gradient is related to hyperkinetic flow. Her dimensionless index was normal against any form of left ventricular outflow tract obstruction. Therewas no aortic insufficiency. Mild mitral annular calcification without more than trace mitral insufficiency. Normal appearing tricuspid valve with no more than trace insufficiency. We could not visualize any intracardiac mass. There was miniscule pericardial effusion. ASSESSMENT: Mrs. Cai is a 80-year-old female with a history of chronic oxygen-dependent respiratory failure, COPD, chronic diastolic congestive heart failure, now has insulin-dependent diabetes, history of PE, hypertension, admitted to hospital for management of hypertensive urgency as well as acute COPD exacerbation. PLAN: Sore throat, r/o thrush vs. other infection -WBC mildly elevated compared to 03/19/21, afebrile -Pain on anterior tongue, throat, incr cough -Strep neg, throat culture pending - will f/u over the weekend -D/c with nystatin SS QID Chest pain 2/2 to increased coughing with sore throat -Trop neg, not suspecting cardiac cause at this time -BNP neg -Monitor closely Constipation -no BM since admission -BR in place -Given 2 doses lactulose thus far, consider enema Acute on chronic respiratory failure 2/2 to COPD exacerbation, possible PNA, lung CA (see below ) -Remains on 2 L NC ATC, mild exp wheezing but continuing to improving slowly, increased coughing -WBC 14.8K, slightly increased, afebrile -no sputum cx obtained -C/w prednisone PO tapering dose, home nebs, inhalers but holding theophylline while being treated for PNA. D/c with levofloxacin for 4 additional days - will complete 10 day treatment course -Pulmonology has seen inpatient, patient can f/u with her ocean fishing guide (Dr. 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 -4/TR -Discussed with Dr. Pruitt who will see patient in office and arrange her to follow up with radiation oncology as o/p -Reported results to patient today Uncontrolled hyperglycemia, DM type II likely 2/2 to steroids -BS better controlled -C/w home regimen. Staphylococcus epidermidis bacteremia, likely contaminate -BCx above -Repeat BCx NG Anxiety, labile mood likely 2/2 to steroids, underlying anxiety? -No prior history Lactic acidosis likely 2/2 to severe COPD, chronic pulmonary HTN. Cannot also r/o 2/2 to malignancy -Less likely to be from sepsis -Perfusing well, renal fx at baseline Chronic HFpEF -Echo report reviewed from 01/15/21: Grade 1 diastolic dysfunction. Mild pulmonary HTN. LVEF 75%. -Euvolemic Hypothyroidism - c/w levothyroxine Dyslipidemia - c/w Zetia and Statin DVT px -lovenox Resolved issues: SVT HTN Urgency RAJI Acute hypokalemia DISPOSITION: D/c home to follow with pulmonary, PCP TIME SPENT ON DISCHARGE: 35 minutes. Vital Signs/I&Os Vital Signs Date Time Temp Pulse Resp B/P (MAP) Pulse Ox O2 Delivery O2 Flow Rate FiO2 03/20/21 14:03 1.0 03/20/21 13:50 98.1 120 20 139/75 (96) 95 Nasal Cannula I&O- Last 24 Hours up to 6 AM 03/20/21 06:00 Intake Total 1060 ml Output Total 1900 ml Balance -840 ml Laboratory Data Labs 24H Laboratory Tests 2 03/19/21 17:22: Bedside Glucose (Misc Panel) 250H 03/19/21 21:21: Bedside Glucose (Misc Panel) 346H 03/20/21 05:42: Nucleated Red Blood Cells % (auto) 0.1H, Anion Gap 4L, Glomerular Filtration Rate > 60.0, Calcium Level 8.9, Total Bilirubin 0.3, Aspartate Amino Transf (AST/SGOT) 9, Alanine Aminotransferase (ALT/SGPT) 12, Alkaline Phosphatase 48, Total Protein 5.4L, Albumin 2.7L, Albumin/Globulin Ratio 1.0L 03/20/21 11:18: Troponin I 0.06, EC-Vlg-M-Type Natriuretic Peptide 410 03/20/21 11:53: Bedside Glucose (Misc Panel) 168H CBC/BMP Laboratory Tests 03/20/21 05:42 FSBS Laboratory Tests Test 03/19/21 17:22 03/19/21 21:21 03/20/21 11:53 Range/Units Bedside Glucose (Misc Panel) 250 346 168 83-110 MG/DL Microbiology Microbiology 03/20/21 Group A Streptococcus Screen ([facility]) - Final, Resulted 03/20/21 Eye/Ear/Nose/Throat Culture, Resulted Pending 03/18/21 Blood Culture - Preliminary, Resulted No Growth after 48 hours. All Specime... 03/18/21 Blood Culture - Preliminary, Resulted No Growth after 48 hours. All Specime... 03/15/21 Blood Culture - Final, Complete NO GROWTH AFTER 5 DAYS 03/15/21 Blood Culture - Final, Complete Staphylococcus Epidermidis 03/14/21 Respiratory Virus Panel (PCR) ([facility]) - Final, Complete Discharge Medications Scheduled Aspirin (Aspirin EC) 81 Mg Tablet.dr, 81 MG PO DAILY, (Reported) Atorvastatin Calcium (Atorvastatin Calcium) 40 Mg Tablet, 40 MG PO DAILY, (Reported) Ezetimibe (Ezetimibe) 10 Mg Tablet, 10 MG PO DAILY, (Reported) Levofloxacin (Levofloxacin) 500 Mg Tablet, 500 MG PO DAILY Levothyroxine Sodium (Levothyroxine Sodium) 88 Mcg Tablet, 88 MCG PO QAM, (Reported) pt takes brand name synthroid Losartan Potassium (Losartan Potassium) 100 Mg Tab, 100 MG PO QHS, (Reported) Metformin HCl (Metformin HCl) 1,000 Mg Tablet, 1,000 MG PO BID, (Reported) Nystatin (Nystatin Oral Susp) 100,000 Unit/1 Ml Oral.susp, 5 ML PO QID Prednisone (Prednisone) 20 Mg Tablet, 60 MG PO DAILY Prednisone taper: 60 mg Po x 3 days, 40 mg Po x 3 days, then 20 mg Po x 1 day Salmeterol/Fluticasone (Advair 500-50 Diskus) 28 Puff/Inhaler Aerp, 1 PUFF INH BID, (Reported) Tiotropium [place] (Spiriva) 18 Mcg Cap, 1 PUFF INH DAILY, (Reported) Scheduled PRN Albuterol Sulf (Albuterol Sulfate) 2.5 Mg/3 Ml Vial.neb, 1 VIAL INH Q4H PRN for SHORTNESS OF BREATH, (Reported) Albuterol Sulfate (Ventolin Hfa) 18 Gm Hfa.aer.ad, 2 PUFF INH Q4H PRN for wheezing, (Reported) Nitroglycerin (Nitroglycerin) 0.4 Mg Tab.subl, 0.4 MG SL NITRO PRN for CHEST PAIN, (Reported) Oxycodone HCl/Acetaminophen (Oxycodone-Acetaminophen 5-325) 1 Each Tablet, 1 TAB PO BID PRN for PAIN Allergies Coded Allergies: Cephalosporins (Verified Allergy, Mild, RASH, 07/17/19) apixaban (Verified Allergy, Mild, RASH, 07/17/19) carisoprodol (Verified Allergy, Mild, RASH, 07/17/19) clavulanic acid (Verified Allergy, Mild, VOMITING, RASH, 01/17/20) AMOXICILLIN, PENICILLIN, AMPICILLIN OK PER PT codeine (Verified Allergy, Mild, RASH, 07/17/19) Sulfa (Sulfonamide Antibiotics) (Verified Allergy, Unknown, UNKNOWN RXN A CHILD, 07/17/19) Livier Harman MD Mar 20, 2021 16:44
== END 2021-03-20 16:26 | disposition home health service (06) | DRG 190 ==
LOC: M ED 22:07 → M ED INP 03-15 03:17 → ENRESERV 03-15 05:00 → M ICU 03-15 06:15 → M PCU 03-16 23:50 → M MSPAV 03-20 13:42
PROVIDERS: ADMIT Internal Medicine; ATTEND Internal Medicine
PROC: 0BBG3ZX Excision of Left Upper Lung Lobe, Percutaneous Approach, Diagnostic (ICD-10-PCS; principal; 2021-03-18 13:00)
DX: J44.1 Chronic obstructive pulmonary disease with (acute) exacerbation (principal); J18.9 Pneumonia, unspecified organism; J96.21 Acute and chronic respiratory failure with hypoxia; I50.32 Chronic diastolic (congestive) heart failure; I47.1 Supraventricular tachycardia; E87.2 Acidosis; J81.1 Chronic pulmonary edema; N17.9 Acute kidney failure, unspecified; C34.12 Malignant neoplasm of upper lobe, left bronchus or lung; Z99.81 Dependence on supplemental oxygen; J44.0 Chronic obstructive pulmonary disease with (acute) lower respiratory infection; E11.65 Type 2 diabetes mellitus with hyperglycemia; I11.0 Hypertensive heart disease with heart failure; E03.9 Hypothyroidism, unspecified; G89.29 Other chronic pain; M54.9 Dorsalgia, unspecified; E27.9 Disorder of adrenal gland, unspecified; E87.6 Hypokalemia; E78.5 Hyperlipidemia, unspecified; H91.90 Unspecified hearing loss, unspecified ear; M81.0 Age-related osteoporosis without current pathological fracture; J02.9 Acute pharyngitis, unspecified; I34.0 Nonrheumatic mitral (valve) insufficiency; I27.20 Pulmonary hypertension, unspecified; I16.0 Hypertensive urgency; F17.210 Nicotine dependence, cigarettes, uncomplicated; F32.9 Major depressive disorder, single episode, unspecified; F41.9 Anxiety disorder, unspecified; R26.81 Unsteadiness on feet; K59.00 Constipation, unspecified; Z90.89 Acquired absence of other organs; Z98.41 Cataract extraction status, right eye; Z98.42 Cataract extraction status, left eye; Z90.49 Acquired absence of other specified parts of digestive tract; Z86.711 Personal history of pulmonary embolism; Z79.4 Long term (current) use of insulin; Z79.2 Long term (current) use of antibiotics; Z79.891 Long term (current) use of opiate analgesic; Z79.899 Other long term (current) drug therapy; Z88.0 Allergy status to penicillin; Z88.1 Allergy status to other antibiotic agents; Z88.2 Allergy status to sulfonamides; Z88.5 Allergy status to narcotic agent; Z88.8 Allergy status to other drugs, medicaments and biological substances; Z20.822 Contact with and (suspected) exposure to COVID-19; Z66 Do not resuscitate

== ENCOUNTER → 2021-04-04 | Outpatient (CLI) | payer MEDICARE, OTHER ==
[~2021-04-04] MED LIST changes: +EZET10TA21 PO; +LEVO88TA3 PO; +NYST50SS PO; +med rec comment
--- NOTE | 2021-04-04 15:37 | RADONC.CN ---
Radiation Oncology Hx/Consult Radiation Oncology Consult Date of Service: April 04, 2021 Pt Identifier Alona Carter is a 81 year old female current smoker with a ANTONELLA biopsy proven NSCLC [id number] Stage IA3. She is seen for consideration of SBRT as she is not a surgical candidate. Diagnosis/Treatment History Oncologic History Followed by Dr. Pruitt for advanced COPD on 3L home O2. Had a CT on admission f or COPD exacerbation on 03/15/21 which showed a ~ 3cm ANTONELLA lesion which was noted to have increased in size since the prior study. Also noted was a 1.6 cm lesion in the anterior ANTONELLA which also was increased in size. She underwent biopsy of the larger ANTONELLA on 03/18/21 and pathology revealed NSCLC. PFTs 01/01/20 FVC 1.51 FEV1 0.55 FEV1/FVC 48% pred Relevant data: 03/15/21 CT angio chest FINDINGS: Pulmonary arteries: The main pulmonary artery measures 24 mm. No pulmonary embolism is identified. Aorta: The ascending thoracic aorta measures 31 mm. Lungs: Minimal diffuse bullous change with coarse interstitium and minimal scattered pulmonary infiltrates. There is focal consolidation or mass in the anterolateral left upper lobe with irregular margins and extends from the pleural surface with stranding toward the anterior aspect of the right hilum and now measures approximately 15 x 35 x 14 mm and is increased since the prior study. There is some associated adjacent infiltrate along the medial aspect. There is an additional rounded area of mass or focal consolidation in the anterior left upper lobe which is increased since the prior study and measures approximately 1.0 x 1.6 x 1.4 cm and demonstrates lobular and irregular margins. There is a calcified granuloma in the medial right upper lobe anteriorly. Pleural spaces: Unremarkable. No pneumothorax. No pleural effusion. Heart: Unremarkable. No cardiomegaly. No pericardial effusion. Lymph nodes: Unremarkable. No enlarged lymph nodes. Spleen: There is a splenic calcification. Adrenal glands: There is a right adrenal nodule measuring 2.4 x 1.7 x 2.7 cm with a Hounsfield measurement of -2 consistent with an adenoma and is unchanged from the prior study. Bones/joints: Unremarkable. No acute fracture. Soft tissues: Unremarkable. IMPRESSION: 1. Minimal diffuse bullous change with coarse interstitium and minimal scattered pulmonary infiltrates which is similar to the prior study of 01/17/2020. 2. There are 2 focal areas of consolidation or mass in the left upper lobe which are increased since the prior study and viewed with some suspicion. Highly suspicious nodule(s). Consider PET/CT, or tissue sampling.(Reference: Rani) 3. Old granulomatous disease of the chest and spleen. 4. Right adrenal nodule consistent with adenoma which is unchanged from the prior study. 5. Otherwise negative CTA chest. No pulmonary embolism is identified. Interval History Here with her granddaughter reports she continues to smoke 3/4-1 ppd. She is not interested in quitting at this time. She reports that she has productive cough and stable severe LEIGH. She goes about 10 feet without getting winded. She wears 3L NC O2 at home. Her portable O2 concentrator is currently offline, being repaired. She denies hemoptysis. She also denies weight loss or CP. Past Medical History: COPD Depression Diastolic CHF HTN Hypothyroidism DMII PE/DVT Past Surgical History: Hernia repair Cataract repair Thyroidectomy Tonsillectomy Family History: 5/6 siblings with lung cancer (all smokers) Father bladder cancer Social History: 60+ pack year current smoker Does not drink Allergies / Meds Allergies: Coded Allergies: Cephalosporins (Verified Allergy, Mild, RASH, 07/17/19) apixaban (Verified Allergy, Mild, RASH, 07/17/19) carisoprodol (Verified Allergy, Mild, RASH, 07/17/19) clavulanic acid (Verified Allergy, Mild, VOMITING, RASH, 01/17/20) AMOXICILLIN, PENICILLIN, AMPICILLIN OK PER PT codeine (Verified Allergy, Mild, RASH, 07/17/19) Sulfa (Sulfonamide Antibiotics) (Verified Allergy, Unknown, UNKNOWN RXN A CHILD, 07/17/19) Home Meds Active Scripts Nystatin (Nystatin Oral Susp) 100,000 Unit/1 Ml Oral.susp, 5 ML PO QID for 10 Days, #200 ML Prov:Livier Harman MD 03/20/21 Levofloxacin (Levofloxacin) 500 Mg Tablet, 500 MG PO DAILY for 5 Days, #5 TAB Prov:Livier Harman MD 03/19/21 Prednisone (Prednisone) 20 Mg Tablet, 60 MG PO DAILY for 7 Days, #16 TAB Prednisone taper: 60 mg Po x 3 days, 40 mg Po x 3 days, then 20 mg Po x 1 day Prov:Livier Harman MD 03/19/21 Oxycodone HCl/Acetaminophen (Oxycodone-Acetaminophen 5-325) 1 Each Tablet, 1 TAB PO BID PRN for PAIN MDD 2, #10 TAB Prov:CLAUDE TORRES MD 09/21/20 Reported Medications Atorvastatin Calcium (Atorvastatin Calcium) 40 Mg Tablet, 40 MG PO DAILY 03/15/21 Ezetimibe (Ezetimibe) 10 Mg Tablet, 10 MG PO DAILY 03/15/21 Aspirin (Aspirin EC) 81 Mg Tablet.dr, 81 MG PO DAILY 03/15/21 Metformin HCl (Metformin HCl) 1,000 Mg Tablet, 1000 MG PO BID 03/15/21 Levothyroxine Sodium (LEVOTHYROXINE SODIUM) 88 Mcg Tablet, 88 MCG PO QAM pt takes brand name synthroid 03/15/21 Albuterol Sulfate (Ventolin Hfa) 18 Gm Hfa.aer.ad, 2 PUFF INH Q4H PRN for wheezing 01/18/20 Nitroglycerin (Nitroglycerin) 0.4 Mg Tab.subl, 0.4 MG SL NITRO PRN for CHEST PAIN 09/20/19 Albuterol Sulf (Albuterol Sulfate) 2.5 Mg/3 Ml Vial.neb, 1 VIAL INH Q4H PRN for SHORTNESS OF BREATH 09/04/19 Losartan Potassium (Losartan Potassium) 100 Mg Tab, 100 MG PO QHS 03/17/15 Salmeterol/Fluticasone (Advair 500-50 Diskus) 28 Puff/Inhaler Aerp, 1 PUFF INH BID, INHALER 03/17/15 Tiotropium [place] (Spiriva) 18 Mcg Cap, 1 PUFF INH DAILY 03/17/15 Review of Systems General: Reports: Normal Appetite Eyes: Denies: Pain HEENT: Denies: Head Aches Skin: Denies: Rash Pulmonary: Reports: Dyspnea, Cough Cardiovascular: Denies: Chest Pain Gastrointestinal: Denies: Abdominal Pain Hematologic: Denies: Bruising Endocrine: Denies: Cold Intolerance Musculoskeletal: Denies: Neck pain, Back pain Neurological: Denies: Weakness, Numbness Psych: Reports: Mood Normal Vital Signs Ht 63" Wt 134 lbs BMI 23 T 97.7 P 89 RR 24 BP 124/68 O2 92% Pain 0 Fatigue 3 General Exam: Positive: Alert, Cooperative, No Acute Distress, Other (Pursed lip breathing and audible wheezing at rest) Eye Exam: Positive: PERRLA, EOMI ENT EXAM: Positive: Atraumatic Neck Exam: Positive: Supple; Negative: Lymphadenopathy Chest Exam: Positive: Clear to auscultation, Rhonchi, Wheezing Heart Exam: Positive: Rate Normal Abdomen Exam: Positive: Normal bowel sounds, Soft Extremity Exam: Negative: Edema Skin Exam: Positive: Nl turgor and temperature Neuro Exam: Positive: Normal Gait, Normal Speech, Cranial Nerves 3-12 NL Psych Exam: Positive: Mental status NL Diagnostic and Laboratory Diagnostic Review Radiologic images, relevant labs and pathology reports were personally reviewed and discussed with Ms. Carter. Assessment and Plan Impression Ms. Carter is a 81 year old female current smoker with a ANTONELLA biopsy proven NSCLC [id number] Stage IA3. She is seen for consideration of SBRT as she is not a surgical candidate. Stage NSCLC ANTONELLA [id number] Stage IA3 possible synchronous second lesion ANTONELLA [id number] Stage IA2 Performance Status ECOG 2 Plan We had an extensive discussion with Ms. Carter regarding the diagnosis at hand and available therapeutic options. She has a proven ANTONELLA lesion and inferior to this there is a second lesion which is small and morphologically distinct that could represent another synchronous stage I cancer. She has a PET-CT pending on 04/14/21 which should resolve this second lesion. If this smaller lesion is PET-CT avid then I would treat both it and the proven lesion. I think she would tolerate treatment well, given the poor shape of her pulmonary parenchyma the function of the left apical lung is likely compromised to the point of not contributing much to over all ventilation. She agreed to proceed tentatively accepting that any unforeseen PET avid lesions would change this plan. I would give 50-60 Gy in 5 fractions to each lesion, possibly with a monoisocentric VMAT-based approach given their proximity and this modality may result in maximal sparing of normal lung dose which would be in her best interests. We discussed the logistics of receiving radiation therapy in detail including the need for a 1-time planning session with 4DCT. I will schedule this for after the PET-CT. We reviewed the side effects of treatment including fatigue, chest wall pain, and 5-8% pneumonitis risk per lesion treated. After discussing the risks, benefits and alternatives to radiation therapy, Ms. Carter was amenable to pursuing radiotherapy. All questions were answered to the patient's satisfaction. We instructed the patient that if there were any questions,concerns or changes in clinical status in the interim to contact us. Recommendations Pending PET-CT 04/14/21 SBRT to both ANTONELLA lesions 50-60 Gy in 5 fractions with 4DCT/VMAT Simulation after PET-CT Billing Statement Total time of [38] minutes was spent preparing for the visit [3], obtaining HPI [7], examining the patient [2], reviewing diagnostic tests [4], discussing management options [12], coordinating care [2], and writing this note [8]. ИРИНА NASH MD April 04, 2021 15:37
== END ==
LOC: M ONCR 12:33
PROVIDERS: ATTEND General Practice
DX: C34.12 Malignant neoplasm of upper lobe, left bronchus or lung (principal)

== ENCOUNTER 2021-04-17 13:50 | Outpatient (RCR) | payer MEDICARE, OTHER | END 2021-04-28 | LOC: M ONCR 13:50 | PROVIDERS: ATTEND General Practice | DX: C34.12 Malignant neoplasm of upper lobe, left bronchus or lung (principal) ==

== ENCOUNTER 2021-05-06 12:54 | Outpatient (RCR) | payer MEDICARE, OTHER ==
--- NOTE | 2021-05-28 13:24 | RADENCPD ---
Date/Time of Encounter Date of Encounter: May 28, 2021 Time of Encounter: 13:[address] Pruitt was kind enough to call me this AM to let me know that Alona was able to undergo the diagnostic PET-CT that had been planned but was delayed due to scheduling issues. The scan shows retained avidity in the treated nodules, this is not surprising as SBRT to the anterior left lung nodules was less than 1 month ago, therefore I reviewed the CT portion of the study and note evolving post-radiation changes around the nodules which appears typical. With respect to the posteromedial left lung nodule abutting the aorta which was not treated there is clear avidity in this location, thus it is consistent with another NSCLC. There were no concerning foci of avidity distantly or in the contralateral lung. This lesion presents a challenge from treatment standpoint both due to her poor pulmonary reserve and the ultracentral location. I would err on the side of waiting until July, after her next scheduled CT chest, to address this lesion. We can treat it then with VMAT based SBRT, so long as her other lesions show favorable response to treatment. I called to convey this plan to Alona and she agrees. She also mentioned that she thinks she has pink eye, OD for the last week now spread to OS, associated with gritty feeling, lacrimation, conjunctival redness, and scant pus/crusting. I will send tobradex gtt for 1 week. She will call back if this is ineffective. ИРИНА NASH MD May 28, 2021 13:23
[2021-05-28] MEDS ORDERED: TOBRSUS41 OP (13:41)
== END 2021-05-28 ==
LOC: M ONCR 12:54
PROVIDERS: ATTEND General Practice
DX: C34.12 Malignant neoplasm of upper lobe, left bronchus or lung (principal)

== ENCOUNTER → 2021-05-26 | Outpatient (CLI) | payer MEDICARE, OTHER ==
--- NOTE | 2021-05-27 11:19 | REP ---
INDICATION: STAGING LEFT UPPER LOBE LUNG CANCER C34.12. Left upper lobe adenocarcinoma. COMPARISON: Comparison chest CT study March 15, 2021.. TECHNIQUE: Eighty-two minutes following the intravenous injection of a 8.55 mCi dose of F-18 FDG, three-dimensional PET scintigraphy is acquired from the skull base to the proximal thighs. Triplanar noncontrast CT scanning is acquired through the same anatomic range for attenuation correction, and image registration with scan parameters optimized to minimize radiation exposure to the patient. PET scintigraphy and CT datasets were fused and displayed on a workstation with multiplanar and projection display capability. FINDINGS: Head and neck soft tissues are unremarkable. There are 3 nodular foci of abnormal hypermetabolic uptake in the left lung, 2 in the left upper lobe and 1 in the left lower lobe. The recently biopsied spiculated nodule in the left upper lobe shows hypermetabolic uptake, maximum SUV 9.39. the 2nd lesion is in the anterior aspect of the left upper lobe measuring 1.6 cm in diameter and displaying maximum standard uptake value of 6.22. Lastly in the left lower lobe posterior to left hilus, there is a smaller nodular area demonstrating hypermetabolic uptake. Maximum standard uptake value 6.12. This consists of a peripheral solid 1 cm nodule and some soft tissue density surrounding a small radiolucency medial to this. Overall, this lesion measures 2.0 cm in greatest diameter.. No abnormal hilar or mediastinal hypermetabolic yash uptake is seen by PET scintigraphy. No abnormal adrenal uptake is observed. There is a benign right adrenal adenoma demonstrating lobe CT density, mean Hounsfield unit density -4. No abnormal uptake is seen within this. There is normal distribution of tracer to the liver, spleen, gastrointestinal, and genitourinary tract. No other abnormal hypermetabolic uptake is seen. IMPRESSION: There are 3 morphologically suspicious and moderately hypermetabolic nodular foci of increased uptake in the left lung, 2 in the left upper lobe and 1 in the left lower lobe. No hilar or mediastinal or distant metastatic hypermetabolic uptake is seen. <Electronically signed by Lobo Guerrero > 05/27/21 [id number]
== END ==
LOC: M PLARAD 12:16
PROVIDERS: ATTEND Internal Medicine Pulmonary Disease
DX: C34.12 Malignant neoplasm of upper lobe, left bronchus or lung (principal)
CPT/HCPCS: 78815; A9552

== ENCOUNTER 2021-08-08 11:06 | Outpatient (RCR) | payer MEDICARE, OTHER ==
[~2021-08-08 11:06] MED LIST changes: -DOXY100C PO; +DOXY100C3 PO; +TOBRSUS41 OP
[2021-08-08 12:08] LABS: ALBUMIN 3.4 GM/DL (3.2-5.2); BILIRUBIN,TOTAL 0.3 MG/DL (0.2-1.0); CALCIUM LEVEL 9.4 MG/DL (8.8-10.2); CREATININE FOR GFR 1.04 MG/DL (0.55-1.30); GLOMERULAR FILTRATION RATE 54.4 (>39); POTASSIUM SERUM 4.6 MEQ/L (3.5-5.1)
== END 2021-08-28 ==
LOC: M ONCR 11:06
PROVIDERS: ATTEND General Practice
DX: C34.12 Malignant neoplasm of upper lobe, left bronchus or lung (principal)

== ENCOUNTER → 2021-08-12 | Outpatient (CLI) | payer MEDICARE, OTHER ==
[~2021-08-12] MED LIST changes: +ISOVUE-370 76% 100ML VIAL As Ordered ONE
--- NOTE | 2021-08-12 15:40 | REP ---
INDICATION: LUNG CA COMPARISON: Multiple the latest 03/15/2021 CT angio chest TECHNIQUE: Standard helical technique after the intravenous administration of 100 cc Isovue 370 FINDINGS: There is no mediastinal or hilar adenopathy. There are no pleural or pericardial effusions. The imaged upper abdomen is unchanged showing a stable right adrenal gland nodule. The imaged osseous structures are stable and intact. Evaluation of the lung cervantes shows the pleural based spiculated mass seen in the left upper lobe has gotten smaller. Its maximal dimension today measures 1.3 cm previously 2.5 cm. The spiculated nodule seen previously in the anterior segment of the left upper lobe anteriorly has also gotten smaller. Previously this measured 1.5 cm and today this measures 1.2 cm in its greatest dimension the 1 cm size nodule in the medial aspect of the superior segment of the left lower lobe is essentially unchanged again measuring a cm. There is biapical pleuroparenchymal scarring which appears stable. There are advanced emphysematous changes status quo. There is an incidental calcified granuloma in the right middle lobe. IMPRESSION: There has been some improvement in the lung field findings as described above, however, there are some persistent findings which need further follow-up. <Electronically signed by Foster Jean > 08/12/21 [id number]
== END ==
LOC: M RAD 13:31
PROVIDERS: ATTEND General Practice
DX: C34.12 Malignant neoplasm of upper lobe, left bronchus or lung (principal); J84.10 Pulmonary fibrosis, unspecified
CPT/HCPCS: 71260; Q9967

== ENCOUNTER → 2021-08-14 | Outpatient (CLI) | payer MEDICARE, OTHER ==
[~2021-08-14] MED LIST changes: -ISOVUE-370 76% 100ML VIAL As Ordered ONE
--- NOTE | 2021-08-14 13:58 | RADONC ---
Radiation Oncology Hx/FUP Radiation Oncology Hx/FUP Date of Service: Aug 14, 2021 Pt Identifier Alona Carter is a 81 year old female current smoker with a ANTONELLA biopsy proven NSCLC [id number] Stage IA3. She is not a surgical candidate due to severe COPD. She underwent SBRT 55 Gy in 5 fractions to the biopsy proven lesion as well as a synchronous anterior ANTONELLA lesion from 04/30/21-05/06/21. Diagnosis/Treatment History Oncologic History Followed by Dr. Prutit for advanced COPD on 3L home O2. Had a CT on admission for COPD exacerbation on 03/15/21 which showed a ~ 3cm ANTONELLA lesion which was noted to have increased in size since the prior study. Also noted was a 1.6 cm lesion in the anterior ANTONELLA which also was increased in size. She underwent biopsy of the larger ANTONELLA on 03/18/21 and pathology revealed NSCLC. 04/30/21-05/06/21 SBRT 55 Gy in 5 fractions with monoisocentric VMAT to both ANTONELLA lesions She had a PET-CT on 05/26/21 which was too soon following SBRT to assess response Recent data: 08/12/21 CT chest ANTONELLA posterior lesion 1.3 cm (from 2.5) ANTONELLA anterior lesion 1.2 cm (from 1.5) Stable LLL lesion 1 cm Stable granuloma in the RML Interval History Alona is here with her granddaughter. They are working through some social problems at home. This is improving however. She reports she has stable LEIGH, no increase in cough. Still wearing NC O2 3-5L. Has some right sided chest pain which comes and goes. Improves with massage. Current Therapy Surveillance Stage NSCLC ANTONELLA [id number] Stage IA3 Social History: 60+ pack year current smoker Does not drink Allergies / Meds Allergies: Coded Allergies: Cephalosporins (Verified Allergy, Mild, RASH, 07/17/19) apixaban (Verified Allergy, Mild, RASH, 07/17/19) carisoprodol (Verified Allergy, Mild, RASH, 07/17/19) clavulanic acid (Verified Allergy, Mild, VOMITING, RASH, 01/17/20) AMOXICILLIN, PENICILLIN, AMPICILLIN OK PER PT codeine (Verified Allergy, Mild, RASH, 07/17/19) Sulfa (Sulfonamide Antibiotics) (Verified Allergy, Unknown, UNKNOWN RXN A CHILD, 07/17/19) Home Meds Active Scripts Prednisone (Prednisone) 20 Mg Tablet, 60 MG PO DAILY for 7 Days, #16 TAB Prednisone taper: 60 mg Po x 3 days, 40 mg Po x 3 days, then 20 mg Po x 1 day Prov:Livier Harman MD 03/19/21 Oxycodone HCl/Acetaminophen (Oxycodone-Acetaminophen 5-325) 1 Each Tablet, 1 TAB PO BID PRN for PAIN MDD 2, #10 TAB Prov:Sheila Iverson MD 09/21/20 Reported Medications Atorvastatin Calcium (Atorvastatin Calcium) 40 Mg Tablet, 40 MG PO DAILY 03/15/21 Aspirin (Aspirin EC) 81 Mg Tablet.dr, 81 MG PO DAILY 03/15/21 Metformin HCl (Metformin HCl) 1,000 Mg Tablet, 1000 MG PO BID 03/15/21 Levothyroxine Sodium (LEVOTHYROXINE SODIUM) 88 Mcg Tablet, 88 MCG PO QAM pt takes brand name synthroid 03/15/21 Albuterol Sulfate (Ventolin Hfa) 18 Gm Hfa.aer.ad, 2 PUFF INH Q4H PRN for wheezing 01/18/20 Albuterol Sulf (Albuterol Sulfate) 2.5 Mg/3 Ml Vial.neb, 1 VIAL INH Q4H PRN for SHORTNESS OF BREATH 09/04/19 Tiotropium [place] (Spiriva) 18 Mcg Cap, 1 PUFF INH DAILY 03/17/15 Discontinued Reported Medications Ezetimibe (Ezetimibe) 10 Mg Tablet, 10 MG PO DAILY 03/15/21 Nitroglycerin (Nitroglycerin) 0.4 Mg Tab.subl, 0.4 MG SL NITRO PRN for CHEST PAIN 09/20/19 Losartan Potassium (Losartan Potassium) 100 Mg Tab, 100 MG PO QHS 03/17/15 Salmeterol/Fluticasone (Advair 500-50 Diskus) 28 Puff/Inhaler Aerp, 1 PUFF INH BID, INHALER 03/17/15 Discontinued Scripts Tobramycin/Dexamethasone (Tobradex Eye Drops) 5 Ml Drops.susp, 1 DROP OP TID, #5 ML 1 drop both eyes three times daily for 5 days Prov:ИРИНА NASH MD 05/28/21 Nystatin (Nystatin Oral Susp) 100,000 Unit/1 Ml Oral.susp, 5 ML PO QID for 10 Days, #200 ML Prov:Livier Harman MD 03/20/21 Levofloxacin (Levofloxacin) 500 Mg Tablet, 500 MG PO DAILY for 5 Days, #5 TAB Prov:Livier Harman MD 03/19/21 Review of Systems Review of Systems Constitutional: Reports: Fatigue; Denies: Weight Loss Eyes: Denies: Pain HEENT: Denies: Head Aches Skin: Denies: Rash Pulmonary: Reports: Dyspnea, Cough; Denies: Pleuritic Chest Pain Cardiovascular: Reports: Chest Pain; Denies: Edema Gastrointestinal: Denies: Abdominal Pain Endocrine: Denies: Cold Intolerance Musculoskeletal: Denies: Neck pain, Back pain Neurological: Denies: Weakness, Numbness Psych: Reports: Mood Normal Physical Examination Vital Signs Wt 139 lbs T 97.8 P 120 RR 24 BP 151/86 O2 93% on 3L NC Pain 0 Fatigue 1 General Exam: Alert, Cooperative, No Acute Distress Eye Exam: PERRLA, EOMI ENT EXAM: Atraumatic Neck Exam: Supple Chest Exam: Clear to auscultation; Negative: Normal air movement Heart Exam: Rate Normal, Regular Rhythm Abdomen Exam: Soft Extremity Exam: Negative: Edema Skin Exam: Nl turgor and temperature Neuro Exam: Normal Gait, Normal Speech, Cranial Nerves 3-12 NL Psych Exam: Mental status NL Diagnostic and Laboratory Diagnostic Review Radiologic images, relevant labs and pathology reports were personally reviewed and discussed with Ms. Carter. Assessment and Plan Impression Assessment Ms. Carter is a 81 year old female with current smoker with a ANTONELLA biopsy proven NSCLC [id number] Stage IA3. She is not a surgical candidate due to severe COPD. She underwent SBRT 55 Gy in 5 fractions to the biopsy proven lesion as well as a synchronous anterior ANTONELLA lesion from 04/30/21-05/06/21. I reviewed her current CT scan in detail. There has been a marked reduction in the size of the treated lesions. She has no apparent late effects of RT. I recommend another CT chest in 3 months, and if that demonstrates stability or further improvement, then we can extend the scan interval to q6m. Performance Status ECOG [address] chest in 3 months time Ms. Carter was encouraged to call with questions or concerns in the interim period. Billing Statement Total time of [24] minutes was spent preparing for the visit [1], obtaining HPI [5], examining the patient [2], reviewing diagnostic tests [3], discussing management options [5], coordinating care [2], and writing this note [6]. ИРИНА NASH MD Aug 14, 2021 13:58
== END ==
LOC: M ONCR 12:45
PROVIDERS: ATTEND General Practice
DX: C34.12 Malignant neoplasm of upper lobe, left bronchus or lung (principal); F17.210 Nicotine dependence, cigarettes, uncomplicated; J44.9 Chronic obstructive pulmonary disease, unspecified; Z79.82 Long term (current) use of aspirin; Z79.84 Long term (current) use of oral hypoglycemic drugs; Z79.899 Other long term (current) drug therapy; Z88.1 Allergy status to other antibiotic agents; Z88.2 Allergy status to sulfonamides; Z88.5 Allergy status to narcotic agent; Z88.8 Allergy status to other drugs, medicaments and biological substances; Z92.3 Personal history of irradiation; Z99.81 Dependence on supplemental oxygen

== ENCOUNTER → 2021-10-17 | Outpatient (CLI) | payer MEDICARE, OTHER ==
[2021-10-17 17:14] LABS: BASO # 0.1 10^3/uL (0.0-0.2); BASO % 1.2 % (0.0-1.0); EOS # 0.2 10^3/uL (0.0-0.5); EOS % 2.5 % (0.0-3.0); HEMATOCRIT 42.7 % (36.0-47.0); HEMOGLOBIN 13.2 g/dl (12.0-15.5); LYMPH # 1.8 10^3/uL (1.5-5.0); LYMPH % 20.2 % (24.0-44.0); MEAN CORPUSCULAR HEMOGLOBIN 25.4 pg (27.0-33.0); MEAN CORPUSCULAR HGB CONC 30.9 g/dl (32.0-36.5); MEAN CORPUSCULAR VOLUME 82.3 fl (80.0-96.0); MONO % 10.7 % (2.0-8.0); NEUTROPHILS # 5.8 10^3/uL (1.5-8.5); NEUTROPHILS % 64.7 % (36.0-66.0); PLATELET COUNT, AUTOMATED 522 10^3/uL (150-450); RED BLOOD COUNT 5.19 10^6/uL (4.00-5.40); WHITE BLOOD COUNT 8.9 10^3/uL (4.0-10.0)
[2021-10-17 17:43] LABS: HEMOGLOBIN A1c 8.9 %
[2021-10-17 17:46] LABS: BLOOD UREA NITROGEN 13 MG/DL (7-18); CALCIUM LEVEL 9.5 MG/DL (8.8-10.2); CARBON DIOXIDE LEVEL 30 MEQ/L (21-32); CHLORIDE LEVEL 105 MEQ/L (98-107); CHOLESTEROL LEVEL 140 MG/DL (<200); CHOLESTEROL RISK RATIO 3.043 (<5); CREATININE FOR GFR 0.91 MG/DL (0.55-1.30); GLOMERULAR FILTRATION RATE > 60.0 (>39); GLUCOSE, FASTING 126 MG/DL (70-100); HDL CHOLESTEROL 46 MG/DL (>40); LDL CHOLESTEROL 54 MG/DL (<100); NON-HDL-C 94 MG/DL; POTASSIUM SERUM 4.7 MEQ/L (3.5-5.1); SODIUM LEVEL 141 MEQ/L (136-145); TRIGLYCERIDES LEVEL 200 MG/DL (<150)
== END ==
LOC: M PLALAB 14:52
PROVIDERS: ATTEND Student in an Organized Health Care Education/Training Program
DX: C34.12 Malignant neoplasm of upper lobe, left bronchus or lung (principal); E11.9 Type 2 diabetes mellitus without complications; E03.9 Hypothyroidism, unspecified

== ENCOUNTER → 2021-10-17 | Outpatient (REF) | payer MEDICARE, OTHER | LOC: M SFHCPLAZ 14:42 | PROVIDERS: ATTEND Family Medicine | DX: C34.12 Malignant neoplasm of upper lobe, left bronchus or lung (principal); E11.9 Type 2 diabetes mellitus without complications; E03.9 Hypothyroidism, unspecified ==

== ENCOUNTER → 2021-10-30 | Outpatient (CLI) | payer MEDICARE, OTHER ==
[2021-10-30 12:20] LABS: ALBUMIN 3.2 GM/DL (3.2-5.2); ALT/SGPT 14 U/L (12-78); BILIRUBIN,TOTAL 0.3 MG/DL (0.2-1.0); BLOOD UREA NITROGEN 13 MG/DL (7-18); CALCIUM LEVEL 9.3 MG/DL (8.8-10.2); CARBON DIOXIDE LEVEL 30 MEQ/L (21-32); CHLORIDE LEVEL 100 MEQ/L (98-107); CREATININE FOR GFR 0.89 MG/DL (0.55-1.30); GLOMERULAR FILTRATION RATE > 60.0 (>39); GLUCOSE, FASTING 185 MG/DL (70-100); POTASSIUM SERUM 3.8 MEQ/L (3.5-5.1); SODIUM LEVEL 137 MEQ/L (136-145); TOTAL PROTEIN 7.6 GM/DL (6.4-8.2)
== END ==
LOC: M ONCR 11:12
PROVIDERS: ATTEND General Practice
DX: C34.12 Malignant neoplasm of upper lobe, left bronchus or lung (principal)

== ENCOUNTER → 2021-11-05 | Outpatient (CLI) | payer MEDICARE, OTHER ==
[~2021-11-05] MED LIST changes: +ISOVUE-370 76% 100ML VIAL As Ordered ONE
--- NOTE | 2021-11-06 08:38 | REP ---
INDICATION: LUNG CA COMPARISON: 08/12/2021, 03/15/2021 TECHNIQUE: Axial contrast enhanced images from the thoracic inlet to the upper abdomen with coronal and sagittal reformations using 75 ml Isovue 370 intravenous contrast [address] examination was performed using the following dose reduction techniques: Automated exposure control, adjustment of mA and/or kv according to the patient's size, and use of iterative reconstruction technique. FINDINGS: The irregular shaped subpleural density along the lateral margin of the left upper lobe with spiculated contour and subtle linear platelike scarring appears relatively stable. The nodular spiculated lesion in the anteromedial left upper lobe currently measures approximately 13 mm and appears relatively stable. The nodular lesion with similar spiculated contour along the medial left lower lobe appears slightly more pronounced than prior examination (series 201; images 41-46). A new small 5 mm subpleural density in the deep left posterior sulcus (image 88) is nonspecific and may represent transient atelectasis versus new lesion. Stable reactive mediastinal and hilar lymph nodes are again noted. Remainder of lung cervantes demonstrate chronic advanced emphysematous and interstitial changes along with significant biapical scarring unchanged. Calcified granulomata including 7 mm calcified nodule in the medial right middle lobe (image 52) again noted. No effusion. No pneumothorax. Stable significant atherosclerotic changes to the thoracic aorta and coronary arteries. Surrounding musculoskeletal structures without acute osseous abnormality. Upper abdomen demonstrates stable complex right adrenal lesion likely adenoma. IMPRESSION: 1. Previously identified spiculated nodular lesion in the medial left lower lobe appears slightly enlarged as compared with prior examination. 2. Small focus of density in the subpleural deep left posterior sulcus is nonspecific but new. 3. Consider short-term follow-up examination and correlation. <Electronically signed by Garrett Gonzales > 11/06/21 [id number]
== END ==
LOC: M RAD 14:46
PROVIDERS: ATTEND General Practice
DX: C34.12 Malignant neoplasm of upper lobe, left bronchus or lung (principal); J43.9 Emphysema, unspecified; J84.10 Pulmonary fibrosis, unspecified
CPT/HCPCS: 71260; Q9967

== ENCOUNTER → 2021-11-12 | Outpatient (CLI) | payer MEDICARE, OTHER ==
[~2021-11-12] MED LIST changes: -ISOVUE-370 76% 100ML VIAL As Ordered ONE
--- NOTE | 2021-11-12 16:44 | RADONC ---
Radiation Oncology Hx/FUP Radiation Oncology Hx/FUP Date of Service: Nov 12, 2021 Pt Identifier Alona Carter is a 81 year old female current smoker seen for a followup visit today at the department of radiation oncology for a history of ANTONELLA biopsy proven NSCLC [id number] Stage IA3. She is not a surgical candidate due to severe COPD. She underwent SBRT 55 Gy in 5 fractions to the biopsy proven lesion as well as a synchronous anterior ANTONELLA lesion from 04/30/21-05/06/21. Diagnosis/Treatment History Oncologic History Followed by Dr. Pruitt for advanced COPD on 3L home O2. Had a CT on admission for COPD exacerbation on 03/15/21 which showed a ~ 3cm ANTONELLA lesion which was noted to have increased in size since the prior study. Also noted was a 1.6 cm lesion in the anterior ANTONELLA which also was increased in size. She underwent biopsy of the larger ANTONELLA on 03/18/21 and pathology revealed NSCLC. 04/30/21-05/06/21 SBRT 55 Gy in 5 fractions with monoisocentric VMAT to both ANTONELLA lesions She had a PET-CT on 05/26/21 which was too soon following SBRT to assess response 08/12/21 CT chest ANTONELLA posterior lesion 1.3 cm (from 2.5) ANTONELLA anterior lesion 1.2 cm (from 1.5) Stable LLL lesion 1 cm Stable granuloma in the RML 11/05/21 CT chest ANTONELLA lesions stable in size with usual post-radiation changes. Stable LLL lesion. Interval History Alona reports she has some URI symptoms, sinus pressure, increase nasal discharge, some sore throat. Also has her usual air hunger and SOB. Productive cough worse at night. She has joint pain which is chronic as well takes percocet for this with some positive effect. Current Therapy Surveillance Stage ANTONELLA NSCLC [id number] stage IA3 Social History: 60+ pack year current smoker Does not drink Allergies / Meds Allergies: Coded Allergies: Cephalosporins (Verified Allergy, Mild, RASH, 07/17/19) apixaban (Verified Allergy, Mild, RASH, 07/17/19) carisoprodol (Verified Allergy, Mild, RASH, 07/17/19) clavulanic acid (Verified Allergy, Mild, VOMITING, RASH, 01/17/20) AMOXICILLIN, PENICILLIN, AMPICILLIN OK PER PT codeine (Verified Allergy, Mild, RASH, 07/17/19) Sulfa (Sulfonamide Antibiotics) (Verified Allergy, Unknown, UNKNOWN RXN A CHILD, 07/17/19) Home Meds Active Scripts Prednisone (Prednisone) 20 Mg Tablet, 60 MG PO DAILY for 7 Days, #16 TAB Prednisone taper: 60 mg Po x 3 days, 40 mg Po x 3 days, then 20 mg Po x 1 day Prov:Livier Harman MD 03/19/21 Oxycodone HCl/Acetaminophen (Oxycodone-Acetaminophen 5-325) 1 Each Tablet, 1 TAB PO BID PRN for PAIN MDD 2, #10 TAB Prov:Sheila Iverson MD 09/21/20 Reported Medications Atorvastatin Calcium (Atorvastatin Calcium) 40 Mg Tablet, 40 MG PO DAILY 03/15/21 Aspirin (Aspirin EC) 81 Mg Tablet.dr, 81 MG PO DAILY 03/15/21 Metformin HCl (Metformin HCl) 1,000 Mg Tablet, 1000 MG PO BID 03/15/21 Levothyroxine Sodium (LEVOTHYROXINE SODIUM) 88 Mcg Tablet, 88 MCG PO QAM pt takes brand name synthroid 03/15/21 Albuterol Sulfate (Ventolin Hfa) 18 Gm Hfa.aer.ad, 2 PUFF INH Q4H PRN for wheezing 01/18/20 Albuterol Sulf (Albuterol Sulfate) 2.5 Mg/3 Ml Vial.neb, 1 VIAL INH Q4H PRN for SHORTNESS OF BREATH 09/04/19 Tiotropium [place] (Spiriva) 18 Mcg Cap, 1 PUFF INH DAILY 03/17/15 Review of Systems Review of Systems Constitutional: Denies: Fever Eyes: Denies: Pain HEENT: Denies: Head Aches Pulmonary: Reports: Dyspnea, Cough, Pleuritic Chest Pain Cardiovascular: Reports: Chest Pain; Denies: Edema Gastrointestinal: Denies: Abdominal Pain Musculoskeletal: Reports: Neck pain, Back pain, Joint sweling Neurological: Denies: Weakness, Numbness Psych: Reports: Mood Normal Physical Examination Vital Signs Wt 146.4 lbs T 96.4 P 113 RR 20 BP 165/91 O2 99% on 2L NC Pain 7 Fatigue 8 General Exam: Alert, Cooperative, No Acute Distress Eye Exam: PERRLA, EOMI ENT EXAM: Atraumatic Neck Exam: Supple Chest Exam: Clear to auscultation, Normal air movement; Negative: Rhonchi Heart Exam: Rate Normal, Regular Rhythm Abdomen Exam: Soft Extremity Exam: Negative: Edema Skin Exam: Nl turgor and temperature Neuro Exam: Normal Speech, Cranial Nerves 3-12 NL Psych Exam: Mental status NL Diagnostic and Laboratory Diagnostic Review Radiologic images, relevant labs and pathology reports were personally reviewed and discussed with Ms. Carter. Assessment and Plan Impression Assessment Ms. Carter is a 81 year old female with a history of current smoker seen for a followup visit today at the department of radiation oncology for a history of ANTONELLA biopsy proven NSCLC [id number] Stage IA3. She is not a surgical candidate due to severe COPD. She underwent SBRT 55 Gy in 5 fractions to the biopsy proven lesion as well as a synchronous anterior ANTONELLA lesion from 04/30/21-05/06/21. Her CT scan is stable with respect the ANTONELLA treated lesions which show usual post-radiation changes. There are no new or growing lesions on the scan. Explained this is indicative of remission, but that surveillance imaging is essential given the risk for addition lesions manifesting in time. We agreed to another CT chest in 6 months. She has follow up with Dr. Pruitt in the coming weeks. I also discussed palliative care referral given her chronic pain and air hunger. I think this would be of great benefit to her and so will refer. She also asked me for an antibiotic today, I told her based on her symptoms I would be happy to prescribe a z-willy. Will see her in 6 months for the next scan. Performance Status ECOG 2 Plan Follow up in [address] chest with contrast Z-willy Palliative care referral Ms. Carter was encouraged to call with questions or concerns in the interim period. Billing Statement Total time of [29] minutes was spent preparing for the visit [1], obtaining HPI [6], examining the patient [3], reviewing diagnostic tests [5], discussing management options [6], coordinating care [1], and writing this note [7]. ИРИНА NASH MD Nov 12, 2021 16:44
== END ==
LOC: M ONCR 14:38
PROVIDERS: ATTEND General Practice
DX: C34.12 Malignant neoplasm of upper lobe, left bronchus or lung (principal); J44.9 Chronic obstructive pulmonary disease, unspecified; F17.210 Nicotine dependence, cigarettes, uncomplicated; Z92.3 Personal history of irradiation; Z88.0 Allergy status to penicillin; Z88.2 Allergy status to sulfonamides; Z88.1 Allergy status to other antibiotic agents; Z79.891 Long term (current) use of opiate analgesic; Z79.899 Other long term (current) drug therapy

== ENCOUNTER 2022-01-05 11:27 | Inpatient (IN) | payer MEDICARE, OTHER ==
[~2022-01-05] VITALS: Ht 157.5 cm; Wt 66.8 kg
[~2022-01-05 11:27] MED LIST changes: -LEVO500T3 PO; +LEVO500T4 PO; +LOSA100T45 PO; -LOSA100T50 PO
[2022-01-05] MEDS ORDERED: dexameTHASONE 20MG/5ML VIAL (J1100 PER 1MG) IV ONE (11:50)
[2022-01-05] MEDS: COMBIVENT RESPIMAT 100-20MCG INHALER 4GM INH SCH ×3 (11:50→12:30)
[2022-01-05 12:28] LABS: VENOUS HCO3 28.6 MEQ/L (23.0-27.0); VENOUS O2 SATURATION 82.2 % (60.0-80.0); VENOUS PARTIAL PRESSURE CO2 42.8 mmHg (38.0-50.0); VENOUS PH 7.443 UNITS (7.330-7.430); VENOUS STANDARD HCO3 27.6 MEQ/L; VENOUS TOTAL CO2 29.9 MEQ/L (24.0-28.0)
[2022-01-05 12:34] LABS: BASO # 0.1 10^3/uL (0.0-0.2); BASO % 0.6 % (0.0-1.0); EOS % 0.3 % (0.0-3.0); HEMATOCRIT 47.3 % (36.0-47.0); HEMOGLOBIN 14.7 g/dl (12.0-15.5); LYMPH # 0.9 10^3/uL (1.5-5.0); LYMPH % 7.8 % (24.0-44.0); MEAN CORPUSCULAR HEMOGLOBIN 24.6 pg (27.0-33.0); MEAN CORPUSCULAR HGB CONC 31.1 g/dl (32.0-36.5); MEAN CORPUSCULAR VOLUME 79.2 fl (80.0-96.0); MONO # 0.4 10^3/uL (0.0-0.8); MONO % 3.5 % (2.0-8.0); NEUTROPHILS # 10.2 10^3/uL (1.5-8.5); PLATELET COUNT, AUTOMATED 449 10^3/uL (150-450); RED BLOOD COUNT 5.97 10^6/uL (4.00-5.40); WHITE BLOOD COUNT 11.8 10^3/uL (4.0-10.0)
[2022-01-05 12:46] LABS: INR 0.93; PROTHROMBIN TIME 12.9 SECONDS (12.7-14.5)
[2022-01-05 12:57] LABS: CK-MB VALUE MASS < 1.0 NG/ML (<3.6); CPK CREATINE PHOSPHOKINASE 51 U/L (26-192); MB/CK RELATIVE INDEX 1.96 (< OR =4)
[2022-01-05 13:02] LABS: ALBUMIN 3.8 GM/DL (3.2-5.2); BILIRUBIN,DIRECT 0.1 MG/DL (0.0-0.2); BILIRUBIN,TOTAL 0.5 MG/DL (0.2-1.0); CALCIUM LEVEL 9.5 MG/DL (8.8-10.2); CREATININE FOR GFR 1.01 MG/DL (0.55-1.30); GLOMERULAR FILTRATION RATE 56.3 (>39); POTASSIUM SERUM 3.8 MEQ/L (3.5-5.1); THYROID STIMULATING HORMONE 5.05 uIU/ML (0.358-3.740); TOTAL PROTEIN 7.6 GM/DL (6.4-8.2)
[2022-01-05] MEDS ORDERED: GLUCOSE 4GM CHEW TABLET PO PRN (16:50)
[2022-01-05] MEDS ORDERED: GLUCAGON INJ 1MG VIAL SC PRN (16:50)
[2022-01-05] MEDS ORDERED: DEXTROSE 50% 50 ML SYRINGE IV PRN (16:50)
[2022-01-05] MEDS ORDERED: PRED10TA2 PO (17:16)
[2022-01-05] MEDS ORDERED: ADV500INH INH (17:16)
[2022-01-05] MEDS ORDERED: SYNT100T PO (17:16)
[2022-01-05] MEDS ORDERED: THEO300T33 PO (17:16)
[2022-01-05] MEDS ORDERED: ALPR0.25 PO (17:16)
[2022-01-05] MEDS ORDERED: METF-838 PO (17:16)
[2022-01-05] MEDS ORDERED: HOME MED LIST COMPLETE! XX SCH (17:20)
[2022-01-05] MEDS ORDERED: ISOVUE-370 76% 100ML VIAL As Ordered ONE (17:35)
[2022-01-05 18:21] VITALS: BP 171/92
[2022-01-05] MEDS ORDERED: ALBUTEROL 90 MCG/ACT 8GM HFA INHALER INH PRN (18:35)
[2022-01-05] MEDS: PANTOPRAZOLE 40MG VIAL (C9113 PER 1) IV SCH (18:43)
[2022-01-05] MEDS: HumaLOG INSULIN (NovoLOG) PER UNIT SC SCH ×2 (18:44→21:45)
[2022-01-05] MEDS: PERCOCET 5MG/325MG TAB PO PRN (18:45)
[2022-01-05] MEDS: ADVAIR HFA 230/21MCG INHALER INH SCH (19:39)
[2022-01-05] MEDS: IPRATROPIUM 0.5MG/ALBUTEROL 2.5MG INH SOL UD 3ML (DUONEB) NEB SCH (19:39)
[2022-01-05] MEDS ORDERED: LEVEMIR (INSULIN DETEMIR) 1 UNITS/0.01ML SC SCH (21:00)
[2022-01-05] MEDS: methylPREDNISolone 125MG 2ML VIAL IV SCH (21:43)
[2022-01-05 22:00] VITALS: BP 173/94
[2022-01-06] MEDS: IPRATROPIUM 0.5MG/ALBUTEROL 2.5MG INH SOL UD 3ML (DUONEB) NEB SCH ×4 (00:34→19:36)
[2022-01-06 06:00] VITALS: BP 161/93
[2022-01-06] MEDS: LEVOTHYROXINE 100MCG TABLET (0.1MG) PO SCH (06:05)
[2022-01-06] MEDS: methylPREDNISolone 125MG 2ML VIAL IV SCH ×3 (06:05→21:43)
[2022-01-06] MEDS: ADVAIR HFA 230/21MCG INHALER INH SCH ×2 (06:08→19:37)
[2022-01-06] MEDS: TIOTROPIUM INHALER/CAPSULE (SPIRIVA) INH SCH (06:08)
[2022-01-06 06:09] LABS: HEMATOCRIT 40.8 % (36.0-47.0); MEAN CORPUSCULAR HEMOGLOBIN 24.6 pg (27.0-33.0); MEAN CORPUSCULAR HGB CONC 30.9 g/dl (32.0-36.5); MEAN CORPUSCULAR VOLUME 79.7 fl (80.0-96.0); PLATELET COUNT, AUTOMATED 434 10^3/uL (150-450); RED BLOOD COUNT 5.12 10^6/uL (4.00-5.40); WHITE BLOOD COUNT 9.9 10^3/uL (4.0-10.0)
[2022-01-06] MEDS: PERCOCET 5MG/325MG TAB PO PRN ×3 (06:12→21:50)
[2022-01-06 06:28] LABS: HEMOGLOBIN 12.6 g/dl (12.0-15.5)
[2022-01-06 06:35] LABS: CALCIUM LEVEL 9.3 MG/DL (8.8-10.2); CREATININE FOR GFR 1.03 MG/DL (0.55-1.30); POTASSIUM SERUM 4.1 MEQ/L (3.5-5.1)
[2022-01-06] MEDS: PANTOPRAZOLE 40MG VIAL (C9113 PER 1) IV SCH (08:20)
[2022-01-06] MEDS: ENOXAPARIN 40MG/0.4ML SYRINGE (J1650 PER 10MG) SC SCH (08:20)
[2022-01-06] MEDS: NICOTINE 21MG/24HR 1 EA TRANSDERMAL TD SCH (08:21)
[2022-01-06] MEDS: ASPIRIN 81MG ENTERIC TABLET PO SCH (08:25)
[2022-01-06] MEDS: ATORVASTATIN 20 MG TAB PO SCH (08:25)
[2022-01-06] MEDS: HumaLOG INSULIN (NovoLOG) PER UNIT SC SCH ×4 (08:33→21:43)
[2022-01-06] MEDS ORDERED: HumaLOG INSULIN (NovoLOG) PER UNIT SC SCH (09:00)
[2022-01-06] MEDS: ALPRAZolam 0.25 MG TAB PO PRN ×3 (10:49→21:52)
[2022-01-06] MEDS: LEVEMIR (INSULIN DETEMIR) 1 UNITS/0.01ML SC SCH ×2 (13:10→21:42)
[2022-01-06 14:00] VITALS: BP 170/73
[2022-01-06] MEDS: amLODIPine 5 MG TAB PO SCH (21:41)
[2022-01-06 22:00] VITALS: BP 161/75
[2022-01-07] MEDS: IPRATROPIUM 0.5MG/ALBUTEROL 2.5MG INH SOL UD 3ML (DUONEB) NEB SCH ×3 (03:12→14:18)
[2022-01-07] MEDS: methylPREDNISolone 125MG 2ML VIAL IV SCH (05:03)
[2022-01-07] MEDS: LEVOTHYROXINE 100MCG TABLET (0.1MG) PO SCH (05:03)
[2022-01-07 06:00] VITALS: BP 151/66
[2022-01-07 06:15] LABS: HEMATOCRIT 37.1 % (36.0-47.0); HEMOGLOBIN 11.4 g/dl (12.0-15.5); MEAN CORPUSCULAR HEMOGLOBIN 24.6 pg (27.0-33.0); MEAN CORPUSCULAR HGB CONC 30.7 g/dl (32.0-36.5); MEAN CORPUSCULAR VOLUME 80.1 fl (80.0-96.0); PLATELET COUNT, AUTOMATED 398 10^3/uL (150-450); RED BLOOD COUNT 4.63 10^6/uL (4.00-5.40); WHITE BLOOD COUNT 12.8 10^3/uL (4.0-10.0)
[2022-01-07 06:31] LABS: CALCIUM LEVEL 8.8 MG/DL (8.8-10.2); CREATININE FOR GFR 1.16 MG/DL (0.55-1.30); POTASSIUM SERUM 4.3 MEQ/L (3.5-5.1)
[2022-01-07] MEDS: TIOTROPIUM INHALER/CAPSULE (SPIRIVA) INH SCH (07:47)
[2022-01-07] MEDS: ADVAIR HFA 230/21MCG INHALER INH SCH (07:47)
[2022-01-07] MEDS: HumaLOG INSULIN (NovoLOG) PER UNIT SC SCH ×3 (08:40→12:55)
[2022-01-07] MEDS: ENOXAPARIN 40MG/0.4ML SYRINGE (J1650 PER 10MG) SC SCH ×2 (08:41→08:59)
[2022-01-07] MEDS: ASPIRIN 81MG ENTERIC TABLET PO SCH ×2 (08:41→09:00)
[2022-01-07] MEDS: PANTOPRAZOLE 40MG VIAL (C9113 PER 1) IV SCH (08:57)
[2022-01-07] MEDS: LEVEMIR (INSULIN DETEMIR) 1 UNITS/0.01ML SC SCH (08:58)
[2022-01-07] MEDS: NICOTINE 21MG/24HR 1 EA TRANSDERMAL TD SCH (08:59)
[2022-01-07] MEDS: PERCOCET 5MG/325MG TAB PO PRN (09:00)
[2022-01-07] MEDS: ALPRAZolam 0.25 MG TAB PO PRN (09:00)
[2022-01-07] MEDS ORDERED: THEOPHYLLINE (THEO-24) 100MG SR **CAPSULE PO SCH (09:00)
[2022-01-07 09:01] VITALS: BP 165/71
[2022-01-07] MEDS: ATORVASTATIN 20 MG TAB PO SCH (09:01)
[2022-01-07] MEDS: amLODIPine 5 MG TAB PO SCH (09:01)
[2022-01-07] MEDS ORDERED: GLOB31MI SC (12:52)
[2022-01-07] MEDS ORDERED: PRED10TA2 PO (12:52)
[2022-01-07] MEDS ORDERED: LANTINJ4 SC (12:52)
[2022-01-07] MEDS ORDERED: LEVO750T13 PO ×2 (12:52→12:56)
[2022-01-07] MEDS ORDERED: AMLO1TAB24 PO (12:52)
[2022-01-07] MEDS ORDERED: predniSONE 20 MG TAB PO ONE (12:55)
[2022-01-07] MEDS ORDERED: LevoFLOXacin 750 MG TABLET PO ONE (12:55)
[2022-01-07] MEDS ORDERED: ALPR0.25 PO (13:17)
[2022-01-07] MEDS ORDERED: OXYC1TAB23 PO (13:17)
[2022-01-07 14:00] VITALS: BP 150/65
== END 2022-01-07 14:45 | disposition home or self-care (01) | DRG 191 ==
LOC: M ED 11:27 → M ED INP 16:17 → ENRESERV 16:50 → M MSPAV 17:49
PROVIDERS: ADMIT Internal Medicine; ATTEND Internal Medicine
DX: J44.1 Chronic obstructive pulmonary disease with (acute) exacerbation (principal); I50.32 Chronic diastolic (congestive) heart failure; N39.0 Urinary tract infection, site not specified; I11.0 Hypertensive heart disease with heart failure; I34.0 Nonrheumatic mitral (valve) insufficiency; E78.5 Hyperlipidemia, unspecified; E03.9 Hypothyroidism, unspecified; E11.9 Type 2 diabetes mellitus without complications; Z79.4 Long term (current) use of insulin; Z79.899 Other long term (current) drug therapy; Z79.82 Long term (current) use of aspirin; Z88.2 Allergy status to sulfonamides; Z88.8 Allergy status to other drugs, medicaments and biological substances; F17.200 Nicotine dependence, unspecified, uncomplicated; Z66 Do not resuscitate; Z88.5 Allergy status to narcotic agent

== ENCOUNTER → 2022-02-05 | Outpatient (REF) | payer MEDICARE, OTHER ==
[~2022-02-05] MED LIST changes: +ALBU2.5V10 INH; -ALBU83IN INH; +ALPR0.25 PO; +AMLO1TAB24 PO; +BENZ1LOZ10 MT; +BENZ1LOZ10 PO; -CEPA1LOZ2 MT; -CEPA1LOZ2 PO; +CLOP75TA2 PO; -D31000TA2 PO; +GLOB31MI SC; +LANTINJ4 SC; +LEVO750T13 PO; +SYNT100T PO; +VITA100093 PO
[2022-02-05 18:08] LABS: RSV AMPLIFICATION NEGATIVE (NEGATIVE)
== END ==
LOC: M SFHCPLAZ 16:47
PROVIDERS: ATTEND Student in an Organized Health Care Education/Training Program
DX: J02.9 Acute pharyngitis, unspecified (principal)

== ENCOUNTER 2022-04-10 21:07 | Emergency (ER) | payer MEDICARE, OTHER ==
[~2022-04-10] VITALS: Ht 157.5 cm; Wt 65.9 kg
[~2022-04-10 21:07] MED LIST changes: -ALBU2.5V10 INH; +ALBU83IN INH; -CLOP75TA2 PO
[2022-04-10] MEDS ORDERED: CLOP75TA2 PO (21:27)
[2022-04-10 21:33] VITALS: BP 135/63
== END 2022-04-10 23:13 | disposition left against medical advice (07) ==
LOC: M ED 21:07
DX: Z53.21 Procedure and treatment not carried out due to patient leaving prior to being seen by health care provider (principal)

== ENCOUNTER 2022-05-10 23:05 | Inpatient (IN) | payer MEDICARE, OTHER ==
[~2022-05-10] VITALS: Ht 157.5 cm; Wt 61.9 kg
[~2022-05-10 23:05] MED LIST changes: +ALBU2.5V10 INH; -ALBU83IN INH; +CLOP75TA2 PO
[2022-05-10] MEDS ORDERED: CEPH500C PO (23:29)
[2022-05-10] MEDS ORDERED: OXYC5SOL11 PO (23:29)
[2022-05-10] MEDS ORDERED: ONDA4TAB6 (23:29)
[2022-05-11] MEDS: IPRATROPIUM 0.5MG/ALBUTEROL 2.5MG INH SOL UD 3ML (DUONEB) NEB SCH ×7 (00:01→19:26)
[2022-05-11 00:12] LABS: ABG BASE EXCESS 3.8 (-2.0-2.0); ABG HCO3 28.1 MEQ/L (22.0-26.0); ABG O2 SATURATION 98.7 % (95.0-99.0); ABG PARTIAL PRESSURE CO2 41.3 mmHg (35.0-45.0); ABG PARTIAL PRESSURE O2 194.7 mmHg (75.0-100.0); ABG STANDARD HCO3 27.9 MEQ/L (22.0-26.0); ABG TOTAL CO2 29.4 MEQ/L (23.0-31.0); ABG pH (ARTERIAL) 7.451 UNITS (7.350-7.450)
[2022-05-11 00:13] LABS: BASO # 0.1 10^3/uL (0.0-0.2); BASO % 0.8 % (0.0-1.0); EOS # 0.2 10^3/uL (0.0-0.5); EOS % 1.3 % (0.0-3.0); HEMATOCRIT 36.2 % (36.0-47.0); HEMOGLOBIN 11.4 g/dl (12.0-15.5); LYMPH # 1.7 10^3/uL (1.5-5.0); LYMPH % 14.9 % (24.0-44.0); MEAN CORPUSCULAR HEMOGLOBIN 24.2 pg (27.0-33.0); MEAN CORPUSCULAR HGB CONC 31.5 g/dl (32.0-36.5); MEAN CORPUSCULAR VOLUME 76.9 fl (80.0-96.0); MONO # 0.8 10^3/uL (0.0-0.8); MONO % 7.1 % (2.0-8.0); NEUTROPHILS # 8.3 10^3/uL (1.5-8.5); NEUTROPHILS % 74.9 % (36.0-66.0); PLATELET COUNT, AUTOMATED 726 10^3/uL (150-450); RED BLOOD COUNT 4.71 10^6/uL (4.00-5.40); WHITE BLOOD COUNT 11.1 10^3/uL (4.0-10.0)
[2022-05-11 00:22] LABS: CK-MB VALUE MASS 1.1 NG/ML (<3.6); MB/CK RELATIVE INDEX 2.62 (< OR =4)
[2022-05-11 00:24] LABS: ALBUMIN 2.7 GM/DL (3.2-5.2); ALT/SGPT 11 U/L (12-78); BILIRUBIN,DIRECT 0.1 MG/DL (0.0-0.2); BILIRUBIN,TOTAL 0.2 MG/DL (0.2-1.0); BLOOD UREA NITROGEN 12 MG/DL (7-18); CALCIUM LEVEL 8.5 MG/DL (8.8-10.2); CARBON DIOXIDE LEVEL 28 MEQ/L (21-32); CHLORIDE LEVEL 98 MEQ/L (98-107); CREATININE FOR GFR 0.81 MG/DL (0.55-1.30); GLOMERULAR FILTRATION RATE > 60.0 (>32); GLUCOSE, FASTING 122 MG/DL (70-100); NT-PRO BNP 221 PG/ML (<450); POTASSIUM SERUM 3.7 MEQ/L (3.5-5.1); SODIUM LEVEL 133 MEQ/L (136-145); TOTAL PROTEIN 6.8 GM/DL (6.4-8.2)
[2022-05-11 01:53] LABS: MB/CK RELATIVE INDEX 1.54 (< OR =4)
[2022-05-11] MEDS ORDERED: LORazepam 2 MG/ML VIAL IV STA (02:25)
[2022-05-11] MEDS ORDERED: ISOVUE-370 76% 100ML VIAL As Ordered ONE (02:56)
[2022-05-11] MEDS ORDERED: LEVALBUTEROL 1.25 MG/0.5 ML CONCENTRATE NEB NEB ONE (03:05)
[2022-05-11] MEDS ORDERED: NS 1,000 ML IV SCH (03:05)
[2022-05-11] MEDS ORDERED: GLUCAGON INJ 1MG VIAL SC PRN (03:05)
[2022-05-11] MEDS ORDERED: GLUCOSE 4GM CHEW TABLET PO PRN (03:05)
[2022-05-11] MEDS ORDERED: ALBUTEROL SULFATE 2.5 MG/0.5 ML INH NEB SOLN NEB PRN (03:05)
[2022-05-11] MEDS ORDERED: DEXTROSE 50% 50 ML SYRINGE IV PRN (03:05)
[2022-05-11] MEDS: PANTOPRAZOLE 40MG VIAL IV SCH ×2 (03:50→09:29)
[2022-05-11 04:06] LABS: THEOPHYLLINE LEVEL 25.3 UG/ML (10.0-20.0)
[2022-05-11] MEDS ORDERED: ALPR0.25 PO (04:41)
[2022-05-11] MEDS ORDERED: IPRA0.00 NEB (04:41)
[2022-05-11] MEDS ORDERED: OXYC1TAB23 PO (04:41)
[2022-05-11] MEDS ORDERED: HYDR12CA PO (04:41)
[2022-05-11] MEDS ORDERED: HOME MED LIST COMPLETE! XX SCH (04:45)
[2022-05-11 07:13] LABS: BLOOD UREA NITROGEN 11 MG/DL (7-18); CALCIUM LEVEL 8.8 MG/DL (8.8-10.2); CARBON DIOXIDE LEVEL 25 MEQ/L (21-32); CHLORIDE LEVEL 99 MEQ/L (98-107); CREATININE FOR GFR 0.86 MG/DL (0.55-1.30); GLOMERULAR FILTRATION RATE > 60.0 (>32); GLUCOSE, FASTING 243 MG/DL (70-100); POTASSIUM SERUM 4.1 MEQ/L (3.5-5.1); SODIUM LEVEL 134 MEQ/L (136-145)
[2022-05-11 08:40] VITALS: BP 159/67
[2022-05-11] MEDS ORDERED: methylPREDNISolone 125MG 2ML VIAL IV SCH (09:00)
[2022-05-11] MEDS: INSULIN LISPRO (NovoLOG) PER UNIT SC SCH ×3 (09:29→17:02)
[2022-05-11] MEDS: HEPARIN SOD (PORCINE) 5000UNITS/ML 1ML VIAL/SYRINGE SC SCH ×2 (09:29→20:51)
[2022-05-11] MEDS: CLOPIDOGREL 75 MG TAB PO SCH (09:30)
[2022-05-11] MEDS: ASPIRIN 81 MG CHEW TABLET PO SCH (09:30)
[2022-05-11] MEDS: NICOTINE 14 MG/24 HR TRANSDERMAL TD SCH (09:30)
[2022-05-11 11:16] VITALS: BP 159/69
[2022-05-11 11:32] VITALS: O2SAT 100
[2022-05-11] MEDS ORDERED: SENNA 8.6 MG TAB (SENOKOT) PO PRN (14:40)
[2022-05-11] MEDS ORDERED: DOCUSATE SODIUM 100MG CAPSULE PO PRN (14:40)
[2022-05-11] MEDS: ALPRAZolam 0.25 MG TAB PO PRN ×2 (14:44→19:34)
[2022-05-11 16:00] VITALS: BP 154/68
[2022-05-11] MEDS: methylPREDNISolone 40MG 1ML VIAL IV SCH (17:54)
[2022-05-11 19:32] VITALS: BP 183/78
[2022-05-11 20:48] VITALS: BP 152/70
[2022-05-11] MEDS ORDERED: INSULIN LISPRO (NovoLOG) PER UNIT SC SCH (21:00)
[2022-05-11] MEDS ORDERED: guaiFENesin DM LIQ 10ML UD PO PRN (22:35)
[2022-05-11] MEDS: PERCOCET 5MG/325MG TAB PO SCH (23:39)
[2022-05-12 04:53] VITALS: BP 143/67
[2022-05-12 05:01] LABS: HEMATOCRIT 32.6 % (36.0-47.0); HEMOGLOBIN 10.1 g/dl (12.0-15.5); MEAN CORPUSCULAR HEMOGLOBIN 23.9 pg (27.0-33.0); MEAN CORPUSCULAR VOLUME 77.3 fl (80.0-96.0); PLATELET COUNT, AUTOMATED 676 10^3/uL (150-450); RED BLOOD COUNT 4.22 10^6/uL (4.00-5.40); WHITE BLOOD COUNT 9.9 10^3/uL (4.0-10.0)
[2022-05-12 05:34] LABS: BLOOD UREA NITROGEN 18 MG/DL (7-18); CALCIUM LEVEL 9.1 MG/DL (8.8-10.2); CARBON DIOXIDE LEVEL 27 MEQ/L (21-32); CHLORIDE LEVEL 102 MEQ/L (98-107); GLOMERULAR FILTRATION RATE > 60.0 (>32); GLUCOSE, FASTING 256 MG/DL (70-100); MAGNESIUM LEVEL 2.2 MG/DL (1.8-2.4); POTASSIUM SERUM 4.7 MEQ/L (3.5-5.1); SODIUM LEVEL 135 MEQ/L (136-145); THEOPHYLLINE LEVEL 2.8 UG/ML (10.0-20.0)
[2022-05-12] MEDS: methylPREDNISolone 40MG 1ML VIAL IV SCH (05:37)
[2022-05-12] MEDS ORDERED: LEVOTHYROXINE 100MCG TABLET (0.1MG) PO SCH (06:00)
[2022-05-12] MEDS: PERCOCET 5MG/325MG TAB PO SCH (06:23)
[2022-05-12] MEDS: INSULIN LISPRO (NovoLOG) PER UNIT SC SCH (07:47)
[2022-05-12 07:50] VITALS: BP 175/77
[2022-05-12 08:00] VITALS: BP 166/71
[2022-05-12] MEDS ORDERED: TIOTROPIUM INHALER/CAPSULE (SPIRIVA) INH SCH (08:00)
[2022-05-12] MEDS ORDERED: ADVAIR HFA 230/21MCG INHALER INH SCH (08:00)
[2022-05-12] MEDS: IPRATROPIUM 0.5MG/ALBUTEROL 2.5MG INH SOL UD 3ML (DUONEB) NEB SCH ×2 (08:25→11:25)
[2022-05-12] MEDS: ASPIRIN 81 MG CHEW TABLET PO SCH (08:29)
[2022-05-12] MEDS: CLOPIDOGREL 75 MG TAB PO SCH (08:29)
[2022-05-12] MEDS: NICOTINE 14 MG/24 HR TRANSDERMAL TD SCH (08:30)
[2022-05-12] MEDS: HEPARIN SOD (PORCINE) 5000UNITS/ML 1ML VIAL/SYRINGE SC SCH (08:30)
[2022-05-12 08:40] VITALS: BP 136/62
[2022-05-12 09:00] VITALS: BP 157/64
[2022-05-12] MEDS ORDERED: ATORVASTATIN 20 MG TAB PO SCH (09:00)
[2022-05-12] MEDS ORDERED: PANTOPRAZOLE 40MG TAB (PROTONIX) PO SCH (09:00)
[2022-05-12] MEDS ORDERED: hydroCHLOROthiazide 12.5 MG CAPSULE PO SCH (09:00)
[2022-05-12] MEDS ORDERED: PRED20TA PO (10:01)
[2022-05-12] MEDS: ALPRAZolam 0.25 MG TAB PO PRN (11:10)
[2022-05-12] MEDS ORDERED: LEVEMIR (INSULIN DETEMIR) 1 UNITS/0.01ML SC SCH (21:00)
== END 2022-05-12 11:45 | disposition home or self-care (01) | DRG 918 ==
LOC: M ED 23:05 → M ED INP 05-11 03:04 → ENRESERV 05-11 06:52 → M OBS 05-11 08:31 → M ICU 05-11 08:35
PROVIDERS: ADMIT Internal Medicine; ATTEND Internal Medicine
DX: T48.6X1A Poisoning by antiasthmatics, accidental (unintentional), initial encounter (principal); J44.1 Chronic obstructive pulmonary disease with (acute) exacerbation; C34.90 Malignant neoplasm of unspecified part of unspecified bronchus or lung; F13.20 Sedative, hypnotic or anxiolytic dependence, uncomplicated; E87.1 Hypo-osmolality and hyponatremia; Z99.81 Dependence on supplemental oxygen; Z66 Do not resuscitate; Z92.23 Personal history of estrogen therapy; Z95.5 Presence of coronary angioplasty implant and graft; Z79.82 Long term (current) use of aspirin; Z79.01 Long term (current) use of anticoagulants; F17.200 Nicotine dependence, unspecified, uncomplicated; E11.9 Type 2 diabetes mellitus without complications; I25.10 Atherosclerotic heart disease of native coronary artery without angina pectoris; Z20.822 Contact with and (suspected) exposure to COVID-19; F41.9 Anxiety disorder, unspecified; K42.9 Umbilical hernia without obstruction or gangrene

== ENCOUNTER 2022-05-25 10:22 | Inpatient (IN) | payer MEDICARE, OTHER ==
[~2022-05-25] VITALS: Ht 157.5 cm; Wt 63.5 kg
[~2022-05-25 10:22] MED LIST changes: +CEPH500C PO; +IPRA0.00 NEB; +ONDA4TAB6; +OXYC5SOL11 PO
[2022-05-25 11:15] LABS: BASO # 0.1 10^3/uL (0.0-0.2); BASO % 0.4 % (0.0-1.0); EOS # 0.2 10^3/uL (0.0-0.5); EOS % 1.1 % (0.0-3.0); HEMATOCRIT 36.3 % (36.0-47.0); HEMOGLOBIN 10.9 g/dl (12.0-15.5); LYMPH # 0.6 10^3/uL (1.5-5.0); LYMPH % 3.5 % (24.0-44.0); MEAN CORPUSCULAR HEMOGLOBIN 24.4 pg (27.0-33.0); MEAN CORPUSCULAR VOLUME 81.2 fl (80.0-96.0); MONO # 1.3 10^3/uL (0.0-0.8); MONO % 7.4 % (2.0-8.0); NEUTROPHILS # 14.7 10^3/uL (1.5-8.5); PLATELET COUNT, AUTOMATED 426 10^3/uL (150-450); RED BLOOD COUNT 4.47 10^6/uL (4.00-5.40); WHITE BLOOD COUNT 16.9 10^3/uL (4.0-10.0)
[2022-05-25 11:27] LABS: INR 1.01; PROTHROMBIN TIME 13.7 SECONDS (12.7-14.5)
[2022-05-25 11:41] LABS: ALBUMIN 2.4 GM/DL (3.2-5.2); ALT/SGPT 8 U/L (12-78); BILIRUBIN,DIRECT 0.2 MG/DL (0.0-0.2); BILIRUBIN,TOTAL 0.5 MG/DL (0.2-1.0); BLOOD UREA NITROGEN 13 MG/DL (7-18); CALCIUM LEVEL 8.9 MG/DL (8.8-10.2); CARBON DIOXIDE LEVEL 32 MEQ/L (21-32); CHLORIDE LEVEL 96 MEQ/L (98-107); CREATININE FOR GFR 0.71 MG/DL (0.55-1.30); GLOMERULAR FILTRATION RATE > 60.0 (>32); GLUCOSE, FASTING 216 MG/DL (70-100); POTASSIUM SERUM 4.3 MEQ/L (3.5-5.1); SODIUM LEVEL 134 MEQ/L (136-145); TOTAL PROTEIN 6.2 GM/DL (6.4-8.2)
[2022-05-25] MEDS: COMBIVENT RESPIMAT 100-20MCG INHALER 4GM INH SCH ×3 (11:43→16:37)
[2022-05-25 11:55] LABS: CK-MB VALUE MASS < 1.0 NG/ML (<3.6); CPK CREATINE PHOSPHOKINASE 49 U/L (26-192); MB/CK RELATIVE INDEX 2.04 (< OR =4)
[2022-05-25 12:02] LABS: ABG BASE EXCESS 7.2 (-2.0-2.0); ABG HCO3 33.8 MEQ/L (22.0-26.0); ABG O2 SATURATION 93.9 % (95.0-99.0); ABG PARTIAL PRESSURE CO2 58.1 mmHg (35.0-45.0); ABG PARTIAL PRESSURE O2 69.5 mmHg (75.0-100.0); ABG STANDARD HCO3 30.9 MEQ/L (22.0-26.0); ABG TOTAL CO2 35.5 MEQ/L (23.0-31.0); ABG pH (ARTERIAL) 7.382 UNITS (7.350-7.450)
[2022-05-25] MEDS ORDERED: methylPREDNISolone 125MG 2ML VIAL IV ONE (12:55)
[2022-05-25] MEDS ORDERED: LevoFLOXacin IV 750 MG in IV 1 EA IV ONE (14:05)
[2022-05-25 14:37] LABS: NT-PRO BNP 143 PG/ML (<450)
[2022-05-25] MEDS ORDERED: OXYC-141 PO (15:08)
[2022-05-25] MEDS ORDERED: CIPRHCOTIC AD (15:08)
[2022-05-25] MEDS ORDERED: HOME MED LIST COMPLETE! XX SCH (15:10)
[2022-05-25] MEDS ORDERED: GLUCAGON INJ 1MG VIAL SC PRN (15:50)
[2022-05-25] MEDS ORDERED: GLUCOSE 4GM CHEW TABLET PO PRN (15:50)
[2022-05-25] MEDS ORDERED: DEXTROSE 50% 50 ML SYRINGE IV PRN (15:50)
[2022-05-25] MEDS ORDERED: BISACODYL 10 MG SUPP PR ONE (16:20)
[2022-05-25] MEDS ORDERED: MOM 30ML SUSPENSION UDC PO ONE (16:20)
[2022-05-25] MEDS ORDERED: ONDANSETRON 4MG 2ML VIAL IV PRN (16:20)
[2022-05-25] MEDS: ALBUTEROL SULFATE 2.5 MG/0.5 ML INH NEB SOLN NEB SCH ×2 (16:48→19:41)
[2022-05-25 17:40] VITALS: BP 152/81
[2022-05-25] MEDS: ADVAIR HFA 230/21MCG INHALER INH SCH (19:41)
[2022-05-25] MEDS: INSULIN LISPRO (NovoLOG) PER UNIT SC SCH ×2 (19:45→20:56)
[2022-05-25 20:00] VITALS: BP 119/51
[2022-05-25] MEDS: PIPERACILLIN/TAZOBACTAM SOD 3.375 GM in D5W MINI-BAG PLUS 50 ML IV SCH (20:55)
[2022-05-25] MEDS: SENOKOT S TAB PO SCH (20:55)
[2022-05-25] MEDS: oxyCODONE 10 MG CR TAB PO SCH (20:55)
[2022-05-25 22:00] VITALS: BP 119/51
[2022-05-26] MEDS: PIPERACILLIN/TAZOBACTAM SOD 3.375 GM in D5W MINI-BAG PLUS 50 ML IV SCH ×4 (02:04→20:41)
[2022-05-26] MEDS: ALBUTEROL SULFATE 2.5 MG/0.5 ML INH NEB SOLN NEB SCH ×7 (02:46→23:31)
[2022-05-26 06:00] VITALS: BP_SYST 133; BP_SYST 144; BP_DIAS 68
[2022-05-26] MEDS: LEVOTHYROXINE 100MCG TABLET (0.1MG) PO SCH (06:13)
[2022-05-26 06:14] LABS: BASO % 0.2 % (0.0-1.0); HEMATOCRIT 32.7 % (36.0-47.0); HEMOGLOBIN 10.1 g/dl (12.0-15.5); LYMPH # 0.4 10^3/uL (1.5-5.0); LYMPH % 3.8 % (24.0-44.0); MEAN CORPUSCULAR HEMOGLOBIN 24.6 pg (27.0-33.0); MEAN CORPUSCULAR HGB CONC 30.9 g/dl (32.0-36.5); MEAN CORPUSCULAR VOLUME 79.6 fl (80.0-96.0); MONO # 0.4 10^3/uL (0.0-0.8); MONO % 3.7 % (2.0-8.0); NEUTROPHILS # 10.3 10^3/uL (1.5-8.5); NEUTROPHILS % 91.8 % (36.0-66.0); PLATELET COUNT, AUTOMATED 417 10^3/uL (150-450); RED BLOOD COUNT 4.11 10^6/uL (4.00-5.40); WHITE BLOOD COUNT 11.2 10^3/uL (4.0-10.0)
[2022-05-26 06:43] LABS: BLOOD UREA NITROGEN 18 MG/DL (7-18); CALCIUM LEVEL 8.6 MG/DL (8.8-10.2); CARBON DIOXIDE LEVEL 35 MEQ/L (21-32); CHLORIDE LEVEL 94 MEQ/L (98-107); CREATININE FOR GFR 0.74 MG/DL (0.55-1.30); GLOMERULAR FILTRATION RATE > 60.0 (>32); GLUCOSE, FASTING 296 MG/DL (70-100); POTASSIUM SERUM 4.3 MEQ/L (3.5-5.1); SODIUM LEVEL 135 MEQ/L (136-145)
[2022-05-26] MEDS: TIOTROPIUM INHALER/CAPSULE (SPIRIVA) INH SCH (07:25)
[2022-05-26] MEDS: ADVAIR HFA 230/21MCG INHALER INH SCH ×2 (07:25→20:47)
[2022-05-26] MEDS: INSULIN LISPRO (NovoLOG) PER UNIT SC SCH ×4 (07:30→20:36)
[2022-05-26] MEDS ORDERED: LEVEMIR (INSULIN DETEMIR) 1 UNITS/0.01ML SC SCH (09:00)
[2022-05-26] MEDS: ENOXAPARIN 40MG/0.4ML SYRINGE (J1650 PER 10MG) SC SCH (11:01)
[2022-05-26] MEDS: PANTOPRAZOLE 40MG VIAL IV SCH (11:01)
[2022-05-26] MEDS: CLOPIDOGREL 75 MG TAB PO SCH (11:02)
[2022-05-26] MEDS: oxyCODONE 10 MG CR TAB PO SCH ×3 (11:02→22:47)
[2022-05-26] MEDS: SENOKOT S TAB PO SCH ×2 (11:03→20:41)
[2022-05-26] MEDS: ASPIRIN 81MG ENTERIC TABLET PO SCH (11:03)
[2022-05-26] MEDS: ATORVASTATIN 20 MG TAB PO SCH (11:03)
[2022-05-26 14:00] VITALS: BP 134/64
[2022-05-26] MEDS ORDERED: CEFTAROLINE FOSAMIL 600 MG in D5W MINI-BAG PLUS 50 ML IV SCH (14:00)
[2022-05-26] MEDS: LEVEMIR (INSULIN DETEMIR) 1 UNITS/0.01ML SC SCH (21:00)
[2022-05-26 22:00] VITALS: BP 122/41
[2022-05-27] MEDS: PERCOCET 5MG/325MG TAB PO PRN ×2 (00:25→15:27)
[2022-05-27] MEDS: PIPERACILLIN/TAZOBACTAM SOD 3.375 GM in D5W MINI-BAG PLUS 50 ML IV SCH ×4 (01:59→20:32)
[2022-05-27] MEDS: ALBUTEROL SULFATE 2.5 MG/0.5 ML INH NEB SOLN NEB SCH ×5 (04:15→19:15)
[2022-05-27 06:00] VITALS: BP 162/82
[2022-05-27] MEDS: LEVOTHYROXINE 100MCG TABLET (0.1MG) PO SCH (06:20)
[2022-05-27 06:33] LABS: BASO % 0.2 % (0.0-1.0); EOS # 0.1 10^3/uL (0.0-0.5); EOS % 0.9 % (0.0-3.0); HEMATOCRIT 31.1 % (36.0-47.0); HEMOGLOBIN 9.5 g/dl (12.0-15.5); LYMPH % 8.4 % (24.0-44.0); MEAN CORPUSCULAR HEMOGLOBIN 24.3 pg (27.0-33.0); MEAN CORPUSCULAR HGB CONC 30.5 g/dl (32.0-36.5); MEAN CORPUSCULAR VOLUME 79.5 fl (80.0-96.0); MONO # 0.9 10^3/uL (0.0-0.8); MONO % 7.1 % (2.0-8.0); PLATELET COUNT, AUTOMATED 460 10^3/uL (150-450); RED BLOOD COUNT 3.91 10^6/uL (4.00-5.40); WHITE BLOOD COUNT 12.1 10^3/uL (4.0-10.0)
[2022-05-27 06:53] LABS: BLOOD UREA NITROGEN 16 MG/DL (7-18); CALCIUM LEVEL 8.8 MG/DL (8.8-10.2); CARBON DIOXIDE LEVEL 38 MEQ/L (21-32); CHLORIDE LEVEL 97 MEQ/L (98-107); CREATININE FOR GFR 0.82 MG/DL (0.55-1.30); GLOMERULAR FILTRATION RATE > 60.0 (>32); GLUCOSE, FASTING 108 MG/DL (70-100); POTASSIUM SERUM 3.8 MEQ/L (3.5-5.1); SODIUM LEVEL 136 MEQ/L (136-145)
[2022-05-27] MEDS ORDERED: LIDOCAINE 5% (LIDODERM) PATCH TD ONE (07:00)
[2022-05-27] MEDS: INSULIN LISPRO (NovoLOG) PER UNIT SC SCH ×4 (07:30→20:33)
[2022-05-27] MEDS: ADVAIR HFA 230/21MCG INHALER INH SCH ×2 (07:38→19:15)
[2022-05-27] MEDS: TIOTROPIUM INHALER/CAPSULE (SPIRIVA) INH SCH (07:38)
[2022-05-27] MEDS: ASPIRIN 81MG ENTERIC TABLET PO SCH (08:58)
[2022-05-27] MEDS: ENOXAPARIN 40MG/0.4ML SYRINGE (J1650 PER 10MG) SC SCH (08:58)
[2022-05-27] MEDS: PANTOPRAZOLE 40MG VIAL IV SCH (08:58)
[2022-05-27] MEDS: ATORVASTATIN 20 MG TAB PO SCH (08:59)
[2022-05-27] MEDS: CLOPIDOGREL 75 MG TAB PO SCH (08:59)
[2022-05-27] MEDS: SENOKOT S TAB PO SCH ×2 (08:59→20:32)
[2022-05-27] MEDS: oxyCODONE 10 MG CR TAB PO SCH ×2 (09:02→20:36)
[2022-05-27] MEDS: LEVEMIR (INSULIN DETEMIR) 1 UNITS/0.01ML SC SCH ×2 (09:05→20:33)
[2022-05-27] MEDS ORDERED: KETOROLAC 30 MG/ML 1ML VIAL IV ONE (10:40)
[2022-05-27] MEDS: methylPREDNISolone 40MG 1ML VIAL IV SCH ×2 (11:03→20:32)
[2022-05-27 14:16] VITALS: BP 148/70
[2022-05-27] MEDS: ALPRAZolam 0.25 MG TAB PO PRN (18:45)
[2022-05-27] MEDS ORDERED: **NOTE PATIENT COMMENT** MISC XX SCH (19:00)
[2022-05-27] MEDS: CIPROFLOXACIN HC OTIC SUSPENSION AD SCH (20:43)
[2022-05-27 22:00] VITALS: BP 136/50
[2022-05-28] MEDS: ALBUTEROL SULFATE 2.5 MG/0.5 ML INH NEB SOLN NEB SCH ×4 (00:02→10:58)
[2022-05-28] MEDS: ALPRAZolam 0.25 MG TAB PO PRN (00:40)
[2022-05-28] MEDS: PERCOCET 5MG/325MG TAB PO PRN ×2 (00:40→13:53)
[2022-05-28] MEDS: PIPERACILLIN/TAZOBACTAM SOD 3.375 GM in D5W MINI-BAG PLUS 50 ML IV SCH ×2 (03:08→08:25)
[2022-05-28] MEDS: methylPREDNISolone 40MG 1ML VIAL IV SCH ×2 (04:30→12:00)
[2022-05-28] MEDS: LEVOTHYROXINE 100MCG TABLET (0.1MG) PO SCH (05:27)
[2022-05-28 06:00] VITALS: BP 137/57
[2022-05-28 06:02] LABS: ABG BASE EXCESS 8.1 (-2.0-2.0); ABG HCO3 33.9 MEQ/L (22.0-26.0); ABG O2 SATURATION 96.3 % (95.0-99.0); ABG PARTIAL PRESSURE CO2 54.4 mmHg (35.0-45.0); ABG PARTIAL PRESSURE O2 87.8 mmHg (75.0-100.0); ABG STANDARD HCO3 31.8 MEQ/L (22.0-26.0); ABG TOTAL CO2 35.6 MEQ/L (23.0-31.0); ABG pH (ARTERIAL) 7.413 UNITS (7.350-7.450)
[2022-05-28 06:38] LABS: BASO % 0.1 % (0.0-1.0); HEMATOCRIT 31.8 % (36.0-47.0); HEMOGLOBIN 9.7 g/dl (12.0-15.5); LYMPH # 0.5 10^3/uL (1.5-5.0); MEAN CORPUSCULAR HGB CONC 30.5 g/dl (32.0-36.5); MEAN CORPUSCULAR VOLUME 78.5 fl (80.0-96.0); MONO # 0.2 10^3/uL (0.0-0.8); MONO % 3.1 % (2.0-8.0); NEUTROPHILS # 6.6 10^3/uL (1.5-8.5); NEUTROPHILS % 89.1 % (36.0-66.0); PLATELET COUNT, AUTOMATED 475 10^3/uL (150-450); RED BLOOD COUNT 4.05 10^6/uL (4.00-5.40); WHITE BLOOD COUNT 7.4 10^3/uL (4.0-10.0)
[2022-05-28 07:14] LABS: BLOOD UREA NITROGEN 15 MG/DL (7-18); CALCIUM LEVEL 8.6 MG/DL (8.8-10.2); CARBON DIOXIDE LEVEL 34 MEQ/L (21-32); CHLORIDE LEVEL 98 MEQ/L (98-107); CREATININE FOR GFR 0.83 MG/DL (0.55-1.30); GLOMERULAR FILTRATION RATE > 60.0 (>32); GLUCOSE, FASTING 127 MG/DL (70-100); POTASSIUM SERUM 4.7 MEQ/L (3.5-5.1); SODIUM LEVEL 138 MEQ/L (136-145)
[2022-05-28] MEDS: ADVAIR HFA 230/21MCG INHALER INH SCH (07:27)
[2022-05-28] MEDS: TIOTROPIUM INHALER/CAPSULE (SPIRIVA) INH SCH (07:27)
[2022-05-28] MEDS: INSULIN LISPRO (NovoLOG) PER UNIT SC SCH ×2 (08:24→12:00)
[2022-05-28] MEDS: ASPIRIN 81MG ENTERIC TABLET PO SCH (08:25)
[2022-05-28] MEDS: CLOPIDOGREL 75 MG TAB PO SCH (08:25)
[2022-05-28] MEDS: LEVEMIR (INSULIN DETEMIR) 1 UNITS/0.01ML SC SCH (08:25)
[2022-05-28] MEDS: PANTOPRAZOLE 40MG VIAL IV SCH (08:25)
[2022-05-28] MEDS: ATORVASTATIN 20 MG TAB PO SCH (08:25)
[2022-05-28] MEDS: CIPROFLOXACIN HC OTIC SUSPENSION AD SCH (08:25)
[2022-05-28] MEDS: SENOKOT S TAB PO SCH (08:26)
[2022-05-28] MEDS: ENOXAPARIN 40MG/0.4ML SYRINGE (J1650 PER 10MG) SC SCH (08:27)
[2022-05-28] MEDS: oxyCODONE 10 MG CR TAB PO SCH (08:28)
[2022-05-28] MEDS ORDERED: AZITHROMYCIN 250MG TABLET PO SCH (09:00)
[2022-05-28] MEDS ORDERED: AZIT-12 PO (10:03)
[2022-05-28] MEDS ORDERED: CEFD300CAP PO (10:03)
[2022-05-28] MEDS ORDERED: PRED20TA PO ×2 (10:03→14:36)
[2022-05-28] MEDS ORDERED: CEFDINIR 300 MG CAP (OMNICEF) PO ONE (13:50)
[2022-05-28 13:53] VITALS: BP 152/84
[2022-05-28] MEDS ORDERED: DOXY-350 PO ×2 (14:36→14:39)
[2022-05-28] MEDS ORDERED: CEFDINIR 300 MG CAP (OMNICEF) PO SCH (21:00)
== END 2022-05-28 14:36 | disposition home health service (06) | DRG 194 ==
LOC: M ED 10:22 → M ED INP 15:50 → ENRESERV 16:05 → M MSPAV 17:38
PROVIDERS: ADMIT Internal Medicine Nephrology; ATTEND Internal Medicine Nephrology
DX: J18.9 Pneumonia, unspecified organism (principal); J44.0 Chronic obstructive pulmonary disease with (acute) lower respiratory infection; J96.11 Chronic respiratory failure with hypoxia; I50.32 Chronic diastolic (congestive) heart failure; J44.1 Chronic obstructive pulmonary disease with (acute) exacerbation; J96.12 Chronic respiratory failure with hypercapnia; Z99.81 Dependence on supplemental oxygen; Z85.118 Personal history of other malignant neoplasm of bronchus and lung; Z92.3 Personal history of irradiation; E11.9 Type 2 diabetes mellitus without complications; I25.10 Atherosclerotic heart disease of native coronary artery without angina pectoris; Z95.5 Presence of coronary angioplasty implant and graft; E03.9 Hypothyroidism, unspecified; I11.0 Hypertensive heart disease with heart failure; F41.9 Anxiety disorder, unspecified; F17.200 Nicotine dependence, unspecified, uncomplicated; Z86.711 Personal history of pulmonary embolism; I87.8 Other specified disorders of veins; Z90.49 Acquired absence of other specified parts of digestive tract; Z98.49 Cataract extraction status, unspecified eye; Z79.82 Long term (current) use of aspirin; Z79.84 Long term (current) use of oral hypoglycemic drugs; Z79.891 Long term (current) use of opiate analgesic; Z79.899 Other long term (current) drug therapy; Z88.1 Allergy status to other antibiotic agents; Z88.2 Allergy status to sulfonamides; Z88.5 Allergy status to narcotic agent; Z88.8 Allergy status to other drugs, medicaments and biological substances; Z88.0 Allergy status to penicillin; K59.00 Constipation, unspecified; M54.9 Dorsalgia, unspecified; Z20.822 Contact with and (suspected) exposure to COVID-19; R07.89 Other chest pain; I34.0 Nonrheumatic mitral (valve) insufficiency; E78.5 Hyperlipidemia, unspecified

== ENCOUNTER → 2022-05-29 | Outpatient (REF) | payer MEDICARE, OTHER ==
[~2022-05-29] MED LIST changes: +CEFD300CAP PO; +CIPRHCOTIC AD; +DOXY-350 PO; +OXYC-141 PO
== END ==
LOC: M SFHCPLAZ 12:30
PROVIDERS: ATTEND Family Medicine
DX: Z79.4 Long term (current) use of insulin (principal)

== ENCOUNTER → 2022-06-18 | Outpatient (CLI) | payer MEDICARE, OTHER ==
[~2022-06-18] MED LIST changes: +LEVO1TAB39 PO; +LEVO1TAB40 PO; -LEVO500T4 PO; -LEVO750T13 PO
== END ==
LOC: M PAL 15:30
PROVIDERS: ATTEND Nurse Practitioner Adult Health
DX: C34.12 Malignant neoplasm of upper lobe, left bronchus or lung (principal); J44.9 Chronic obstructive pulmonary disease, unspecified; T46.0X1A Poisoning by cardiac-stimulant glycosides and drugs of similar action, accidental (unintentional), initial encounter; G89.29 Other chronic pain; M25.50 Pain in unspecified joint; I25.10 Atherosclerotic heart disease of native coronary artery without angina pectoris; I25.2 Old myocardial infarction; Z95.5 Presence of coronary angioplasty implant and graft; Z88.1 Allergy status to other antibiotic agents; Z88.2 Allergy status to sulfonamides; Z88.5 Allergy status to narcotic agent; Z88.8 Allergy status to other drugs, medicaments and biological substances; Z79.82 Long term (current) use of aspirin; Z79.899 Other long term (current) drug therapy; Z79.84 Long term (current) use of oral hypoglycemic drugs; Z79.891 Long term (current) use of opiate analgesic; Z66 Do not resuscitate; Z51.5 Encounter for palliative care; Z79.890 Hormone replacement therapy; R29.6 Repeated falls; Z99.81 Dependence on supplemental oxygen; F17.210 Nicotine dependence, cigarettes, uncomplicated; R22.43 Localized swelling, mass and lump, lower limb, bilateral

== ENCOUNTER → 2022-06-23 | Outpatient (REF) ==
[~2022-06-23] MED LIST changes: -LEVO1TAB39 PO; -LEVO1TAB40 PO; +LEVO500T4 PO; +LEVO750T13 PO
[2022-06-23 18:09] LABS: APPEARANCE, URINE CLEAR (CLEAR); BACTERIA, URINE AUTO NEGATIVE (NEGATIVE); BILIRUBIN, URINE AUTO NEGATIVE (NEGATIVE); BLOOD, URINE BLOOD NEGATIVE (NEGATIVE); COLOR, URINE YELLOW (YELLOW); GLUCOSE, URINE (UA) AUTO NEGATIVE (NEGATIVE); KETONE, URINE AUTO NEGATIVE (NEGATIVE); LEUKOCYTE ESTERASE, URINE AUTO 1+ (NEGATIVE); NITRITE, URINE AUTO NEGATIVE (NEGATIVE); PROTEIN, URINE AUTO NEGATIVE (NEGATIVE); RBC, URINE AUTO 1 /HPF (0-3); SPECIFIC GRAVITY URINE AUTO 1.012 (1.002-1.035); SQUAMOUS EPITHELIAL CELL UR AU 0 /HPF (0-6); UROBILINOGEN, URINE AUTO 0.2 mg/dL (0.0-2.0); WBC, URINE AUTO 1 /HPF (0-3)
== END ==
LOC: M LAB REF 16:43
PROVIDERS: ATTEND Internal Medicine Pulmonary Disease
DX: J44.9 Chronic obstructive pulmonary disease, unspecified (principal); J96.11 Chronic respiratory failure with hypoxia; J96.12 Chronic respiratory failure with hypercapnia; I25.10 Atherosclerotic heart disease of native coronary artery without angina pectoris